=== PATIENT | male | born 1945 | race Asian ===

== ENCOUNTER 2022-01-01 12:46 | Outpatient (CLI) | payer MEDICARE, SELFPAY ==
--- OUTSIDE RECORDS SUMMARY | 2022-01-01 11:46 | XMS_ITS | Clinical Summary ---
:1945 Author Organization [facility] Address [address] [place] [id number] Care Team Providers Name Role Phone Benjamin Henao MD Unavailable Benjamin Henao MD Primary Care Provider Allergies Active Allergy Reactions Severity Noted Date Comments Animal Dander Unknown 09/28/2016 Lisinopril Cough 10/28/2009 Medications Medication Sig Dispensed Refills Start Date End Date Status aspirin 81 MG tablet Take 1 tablet by 0 Active mouth daily. losartan (COZAAR) 50 MG 0 12/07/2020 Active tablet atorvastatin (LIPITOR) Take 20 mg by 0 12/07/2020 Active 20 MG tablet mouth daily doxepin (SINEQUAN) 10 MG Take 10 mg by 0 12/30/2019 Active capsule mouth Pediatric Multi Take 1 tablet by 0 Active Vit-Extra C-FA mouth (FLINTSTONES/EXTRA C) CHEW sildenafil (VIAGRA) 100 Take 100 mg by 0 05/02/2020 Active MG tablet mouth Vitamin D3 Take by mouth 0 Activ e (CHOLECALCIFEROL) 125 daily MCG (5000 UT) tablet cyanocobalamin 1000 MCG Taking every 0 Active SUBL other day Calcium Citrate-Vitamin Take 1 tablet by 0 Active D (CALCIUM CITRATE + D mouth 2 times PO) daily Active Problems Problem Noted Date Obesity (BMI 35.0-39.9) with comorbidity 05/02/2020 S/P splenectomy 01/02/2019 Type 2 diabetes mellitus with complication, without lo ng-term current use 11/21/2018 of insulin [place]ston coronary artery calcium score between 200 and 399 11/21/2018 H/O gastric bypass 10/22/2017 Overview: 05/01/[address] Grant. Complicated by h emorrhage that led to splenectomy. Initial weight was 313 lbs, BMI of 46.9 with comorbid DM II on insulin, hypertension and hyperlipidemia. 6 month s post op is 225 lbs/BMI 34.2 and A1c of 5.6% on just metformin. 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 Overview: Created by Conversion Colonic Diverticulosis Overview: Created by Conversion [facility] Annotation: Sep 03 2011 2:15 PM - Eladio Nielsen: colonoscopy done 08/29/11 Replacement Utility updated for latest I MO load Coronary Artery Disease Overview: Created by Conversion Replacement Utility updated for latest I MO load Mixed hyperlipidemia Overview: Created by Conversion Hypertension Overview: Created by Conversion Replacement Utility updated for latest I MO load Esophageal reflux Overview: Created by Conversion Obstructive sleep apnea Overview: Created by Conversion Resolved Problems Problem Noted Date Resolved Date Morbid obesity with BMI of 45.0-49.9, adult 05/01/2017 06/13/2017 Type 2 diabetes mellitus 01/02/2019 Overview: Created by Conversion Immunizations Name Administration Dates Next Due COVID-19,PF,Pfizer (12+ Yrs) 01/24/2021 Influenza (High Dose) 3 valent vaccine 01/09/2018, 5 Influenza, Quad, High Dose, Pf, 65yr+ (Fluzone HD) , 12/23/2019 Family History Medical History Relation Comments Coronary Artery Disease Brother 1 Diabetes Brother 1 Heart Disease Brother 1 Hyperlipidemia Brother 1 Hypertension Brother 1 Coronary Artery Disease Brother 2 Diabetes Brother 2 Heart Disease Brother 2 Hyperlipidemia Brother 2 Hypertension Brother 2 Cancer Brother 3 gastric ca Diabetes Brother 3 Heart Disease Brother 3 Hyperlipidemia Brother 3 Hypertension Brother 3 Cardiovascular Father Coronary Artery Disease Father Diabetes Father Heart Disease Father Hyperlipidemia Father Obesity Father Arthritis Mother Diabetes Sister 1 Hyperlipidemia Sister 1 Hypertension Sister 1 Obesity Sister 1 Cardiovascular Sister 2 Diabetes Sister 2 Hyperlipidemia Sister 2 Hypertension Sister 2 Obesity Sister 2 Diabetes Sister 3 Hyperlipidemia Sister 3 Hypertension Sister 3 Obesity Sister 3 Cardiovascular Sister 4 Diabetes Sister 4 Hyperlipidemia Sister 4 Hypertension Sister 4 Obesity Sister 4 Diabetes Sister 5 Hyperlipidemia Sister 5 Hypertension Sister 5 Obesity Sister 5 Relation Status Comments Brother 1 Alive Brother 2 Brother 3 Father Mother Sister 1 Alive Sister 2 Alive Sister 3 Alive Sister 4 Alive Sister 5 Alive Social History Tobacco Use Types Packs/Day Years Used Date Former Smoker Quit: 09/28/18 90 Smokeless Tobacco: Never Used Comments: quit 27 yrs ago as of 09/28/2016 Alcohol Use Standard Drinks/Week Comments Yes 0 (1 standard drink = 0.6 oz pure alcoho l) 1 beer a month Alcohol Habits Answer Date Recorded How often do you have a drink containing alcohol? Not asked How many drinks containing alcohol do you have on a Not aske d typical day when you are drinking? How often do you have six or more drinks on one Not asked occasion? Comment: 1 beer a month 12/16/2020 Sex Assigned at Date Recorded Not on file Last Filed Vital Signs Vital Sign Reading Time Taken Comments Blood Pressure 136/80 12/16/2020 1:12 PM CDT Pulse 68 06/30/2019 9:41 AM CDT Temperature - - Respiratory Rate 16 01/07/2019 10:21 AM CDT Oxygen Saturation 98% 01/07/2019 10:21 AM CDT Inhaled Oxygen Concentration - - Weight 105.7 kg (233 lb 1.6 oz) 12/16/2020 1:12 PM CDT Height 172.7 cm (5' 8) 12/16/2020 1:12 PM CDT Body Mass Index 35.44 12/16/2020 1:12 PM CDT Plan of Treatment Health Maintenance Due Date Last Done Comments ADVANCE CARE PLANNING 1945 ANNUAL REVIEW OF HM ORDERS 1945 DIABETIC FOOT EXAM 1945 MEDICARE ANNUAL WELLNESS 2010 VISIT ZOSTER IMMUNIZATION (2 of 08/08/2015 06/13/2015 2) MICROALBUMIN 11/22/2019 11/21/2018, 10/22/2017, 06/13/2015 FALL RISK ASSESSMENT 06/29/2020 06/30/2019 PHQ-2 (once per calendar 04/22/2021 12/23/2018 year) COVID-19 Vaccine (4 - 05/27/2021 01/24/2021, 05/24/2020, Booster for Pfizer series) 05/03/2020 A1C 06/18/2021 12/16/2020, 06/30/2019, 11/21/2018, Additional history exists BMP 12/16/2021 12/16/2020, 06/30/2019, 04/14/2018, Additional history exists LIPID 12/16/2021 12/16/2020, 06/30/2019, 11/21/2018, Additional history exists INFLUENZA VACCINE (#1) 2021 01/16/2021, 12/23/2019, 12/23/2019, Additional history exists EYE EXAM 03/23/2022 03/23/2021, 03/22/2020, 03/11/2019, Additional history exists DTAP/TDAP/TD IMMUNIZATION 01/03/2031 01/03/2021, 06/13/2015 (3 - Td or Tdap) HEPATITIS C SCREENING Completed 06/30/2019 Pneumococcal Vaccine: 65+ Completed 01/03/2021, 06/13/2015 , Years 10/04/2014, Additional history exists IPV IMMUNIZATION Aged Out No longer eligi ble based on patient 's age to complete this topic MENINGITIS IMMUNIZATION Aged Out No longe r eligible based on patient 's age to complete this topic Medical Devices Implanted 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 Shelf Model / Identifier Expiration Serial / Date Lot Staple Reload [place] 60mm 2.6mm White - [id number] - S Metallic N/ A: [employer] 02/19/2022 [id number] / Implanted: Qty: 2 on 05/01/2017 Hardware/Anc Abdomen INC-[employer] / hor [id number] Insurance Payer Benefit Plan / Subscriber ID Effective Dates Phone Addre ss Type Group UCARE UCARE MEDICARE [id number] 2019-Present [phone] [address] [place] [address] Care Teams Tank Assembler Relationship Specialty Start Date End Date Benjamin Henao MD PCP - General Internal Medicine 07/24/[address] [place] [address] [phone] Benjamin Henao MD Assigned PCP 10/05/[address] [place] [address] [phone]
--- OUTSIDE RECORDS SUMMARY | 2022-01-01 11:46 | XMS_ITS | Encounter Summary ---
:1945 Author Organization [place] Address [address] [place] [id number] Care Team Providers Name Role Phone Benjamin Henao MD Unavailable Benjamin Henao MD Primary Care Provider Reason for Visit Reason Comments Weight Problem Annual Encounter Details Date Type Department Care Team Description 12/16/2020 Office Visit [facility] Santos Krishna, Postoper ative malabsorption (Primary Dx); Surgery Clinic and MD Elevated bilirubin; Bariatrics Care [address] [place] [address] of diabetes mellitus [id number] [place] [address] [phone] (Work) [phone] Social History Tobacco Use Types Packs/Day Years [...] Assigned at Date Recorded Not on file COVID-19 Exposure Response Date Recorded In the last month, have you been in contact with No / Unsure 12/16/2020 1:03 PM CDT someone who was confirmed or suspected to have Coronavirus / COVID-19? documented as of this encounter Last Filed Vital Signs Vital Sign Reading Time Taken Comments Blood Pressure 136/80 12/16/2020 1:12 PM CDT Pulse - - Temperature - - Respiratory Rate - - Oxygen Saturation - - Inhaled Oxygen Concentration - - Weight 105.7 kg (233 lb 1.6 oz) 12/16/2020 1:12 PM CDT Height 172.7 cm (5' 8) 12/16/2020 1:12 PM CDT Body Mass Index 35.44 12/16/2020 1:12 PM CDT documented in this encounter Patient Instructions Patient InstructionsTuoSantos ragsdale MD - 12/16/2020 1:15 PM CDT Plan: 1. Great work with maintaining a 80 lb weight reduction. Plan: 1. Continue working on good protein intake at 3 meals daily, 15-20g/meal is ideal and with longer walks over 70minutes expect to need about a 90-150kcal snack with 10grams of protein. 2. Check labs. 3. Continue vitamins, check label of multiivtamin to make sure it has adequate iron (18mg/serving ideally) Zinc 12-15mg/serving is ideal. We'll see how labs look. Continue B12 3 days weekly and D3 daily. Calcium citrate may be able to reduce to once daily depending on labs/PTH levels and vitamin D. 4. I recommend a bone density check sometime this year given weight loss and malabsorption. 5. Small ventral hernia can be assessed if increased issues arise. Currently not a problem and can defer unless increased frequency of pain/rapid enlargement. [facility] Nutritional [facility] Gastric Bypass 18 Months Post Op and Beyond General Guidelines and Helpful Hints: ??? Eat 3 meals per day + protein supplement(s). No snacks between meals. o Do not skip meals. This can cause overeating at the next meal and will prevent adequate protein and nutritional intake. ??? Aim for 60-80 grams of protein per day. o Always eat your protein first. This assists with optimal nutrition and helps you stay full longer. o Depending on your portion size, you may need to drink approved protein supplement between meals toachieve protein goals. Follow recommendations of your Dietitian. ??? Eat your protein first, and then follow with fiber. o It is not necessary to count your fiber, but 15-20 grams per day is recommended. o Add fiber by including fruits, vegetables, whole grains, and beans. ??? Portions should remain about 1 cup per meal. Use measuring cups to be accurate. ??? Continue to use saucer/salad plates, infant/toddler silverware to keep portion sizes small and take small bites. ??? Eat S-L-O-W-L-Y to make each meal last 20-30 minutes. Always stop eating when satisfied. ??? Continue to use caution with foods containing skins, peels or membranes. Chew well! ??? Aim for 64 oz. of calorie-free fluids daily. o Continue to avoid caffeine and carbonation. If you choose to drink alcohol, do so in moderation. o Remember to avoid drinking during meals, 15-30 minutes before and 30 minutes after. ??? Exercise is grey for continued weight loss and weight maintenance. 150 minutes weekly of moderateaerobic activity or 75 minutes of vigorous with 2 days or more a week of strength training. Try to get 20% or more of your steps each day at a brisk pace, as though hurrying to a bus stop. Look to get stronger this year. ??? If having trouble tolerating meat, try using a crock-pot, tinfoil tent, steamer or other moist cooking method to create tender meats. Add broth or low- fat gravy to help meat stay moist. ??? Avoid high sugar and high fat foods to prevent dumping syndrome. o Check nutrition labels for less than 10 grams of sugar and less than 10 grams of fat per serving. ??? Continue Taking Vitamins/Minerals: o 1000 mcg of Sublingual B-12 at least 3 days weekly to average 350-500mcg/day. If using 2500mcg lozenges, 2 weekly. If 5000 mcg, once weekly dosing works. o 1 Complete Multivitamin with 18mg Iron twice daily (chewable or swallow tabs). Often sold as women's one a day if tablet but take twice daily. o 500-600 mg Calcium Citrate twice daily (chewable or swallow tabs). o 5000 IU Vitamin D3 daily. o If menstruating, you may need closer to 60mg of iron daily to prevent iron deficiency. An occasional boost of extra iron supplement during/after is reasonable if heavy flow. Sample Grocery List Protein: ??? Fat free Martiniquais or light yogurt (less than 10 grams sugar) ??? Fat free or low-fat cottage cheese ??? String cheese or reduced fat cheese slices ??? Tuna, salmon, crab, egg, or chicken salad made with light or fat free mayonnaise ??? Egg or Egg Substitute ??? Lean/extra lean turkey, beef, bison, venison (ground, sirloin, round, flank) ??? Pork loin or tenderloin (grilled, baked, broiled) ??? Fish such as salmon, tuna, trout, tilapia, etc. (grilled, baked, broiled) ??? Tender cuts of lean (skinless) turkey or chicken ??? Lean deli meats: turkey, lean ham, chicken, lean roast beef ??? Beans such as kidney, garbanzo, black, johansen, or low-fat/fat free refried beans ??? Peanut butter (natural preferred). Limit to 1 Tbsp. per day. ??? Low-fat meatloaf (made with lean ground beef or turkey) ??? Sloppy [place] made with low-sugar ketchup and lean ground beef or turkey ??? Soy or vegetable protein (i.e. vegan crumbles, soy/veggie burger, tofu) ??? Hummus Vegetables: ??? Fresh: cooked or raw (as tolerated) ??? Frozen vegetables ??? Canned vegetables (low sodium or no salt added, rinse before cooking/eating) ??? (Ok to have skins/peels/membranes/seeds - just chew well) Fruits: ??? Fresh fruit ??? Frozen fruit (no sugar added) ??? Canned fruit (packed in its own juice, NOT syrup) ??? (Ok to have skins/peels/membranes/seeds - just chew well) Starch: ??? Unsweetened whole-grain hot cereal (or high fiber cold cereal, dry) ??? Toasted whole wheat bread or [place] Thins ??? Whole grain crackers ??? Baked /boiled/mashed potato/sweet potato ??? Cooked whole grain pasta, brown rice, or other cooked whole grains ??? Starchy vegetables: corn, peas, winter squash Protein Supplement: ??? Ready to drink protein shake with: o 15-30 grams protein per serving o Less than 10 grams total carbohydrate per serving ??? Protein powder mixed with: o Skim or 1% milk o Low fat or fat free Lactaid milk, plain or no sugar added soymilk o Water Fats: (use in moderation) ??? 1 teaspoon of soft tub margarine ??? 1 teaspoon olive oil, canola oil, or peanut oil ??? 1 tablespoon of low-fat nguyen or salad dressing Sample Menu for 18+ months after Gastric Bypass You do NOT need to eat/drink the full portion sizes listed below Always stop when you are satisfied Breakfast ?? cup 1% cottage cheese ?? cup mixed berries Lunch 2 oz lean roast beef on ?? [place] Thin with 1 tsp. light nguyen ?? small tomato, chopped, mixed with 1 tsp. light vinaigrette dressing Supplement Approved protein supplement (if needed between meals) Dinner 2 oz grilled salmon ?? cup salad greens with 1 tsp. light salad dressing and 1 tsp. ground flax seed ?? cup quinoa or brown rice Breakfast ?? cup egg substitute with ?? cup saut??ed chopped vegetables 2 light [place] Krisp crackers Lunch Tuna Melt: ?? cup tuna mixed with 1 tsp. light nguyen over ?? [place] Thin. Top with 2-3 slicescucumber and 1 oz slice of low fat cheese Supplement 1 cup skim milk (if needed between meals) Dinner 3 oz grilled, broiled, or baked seasoned skinless chicken breast ?? cup asparagus Breakfast ?? cup plain oatmeal made with skim or 1% milk with 1 Tbsp. flavored/unflavored protein powder added 1 mozzarella string cheese Lunch 2 oz deli turkey breast 1/3 cup salad with 1 tsp. light salad dressing, 1/8 of a whole avocado and 1 Tbsp. sunflower seeds Dinner 3 oz. pork loin made in a crock pot, seasoned with a spice rub ?? cup cooked carrots Supplement Approved protein supplement (if needed between meals) Breakfast 1 cup breakfast casserole made with egg substitute, turkey sausage, and steamed, chopped dan peppers Supplement 1 cup light Martiniquais yogurt (if needed between meals) Lunch 2 oz. teriyaki turkey ?? cup mashed sweet potato with 1-2 spritzes of spray butter ?? cup fresh pineapple Dinner 3 oz low fat meatloaf ?? cup roasted garlic zucchini Breakfast ?? cup leftover breakfast casserole ?? cup no sugar added applesauce with 1 Tbsp. unflavored protein powder and a sprinkle of cinnamon Lunch 3 oz shrimp with 1-2 Tbsp. low-sugar cocktail sauce for dipping ?? c. whole wheat pasta drizzled with ?? tsp. olive oil Supplement 1 cup skim/1% milk with scoop of protein powder (if needed between meals) Dinner Grilled, seasoned kebob with 2 oz lean beef and ?? cup vegetables Breakfast Breakfast pizza: ?? [place] Thin spread with 1 Tbsp. low sugar spaghetti sauce, ?? cup shredded low fat cheese, melted and 1 slice of Gamb[place] tsai ?? cup fresh fruit mixed with chopped almonds Lunch ?? cup black hill soup 4-5 whole grain crackers Dinner 3 oz tilapia with lemon pepper seasoning ?? cup stewed tomatoes Supplement 1 string cheese (if needed between meals) Breakfast 2 hard boiled eggs (discard 1 egg yolk) ?? whole wheat Tristanian Muffin with 1 tsp. low sugar jelly Lunch ?? cup leftover black hill soup topped with 1-2 Tbsp. low fat cheese 2-3 light [place] Krisp crackers Supplement Approved protein supplement (if needed between meals) Dinner 3 oz sirloin steak ?? cup steamed broccoli LEAN PROTEIN SOURCES Getting 20-30 grams of protein, 3 meals daily, is appropriate for most people, some need more but more than about 40 grams per meal is not useful. General rule is drinking one ounce of water per gram of protein eaten over the course of the day: 70grams of protein each day, drink 70 oz of water. Protein Source Portion Calories Grams of Protein Nonfat, plain Martiniquais yogurt (10 grams sugar or less) 3/4 cup (6 oz) 80-100 12-17 Light Yogurt (10 grams sugar or less) 3/4 cup (6 oz) 80-100 6-8 Protein Shake 1 shake 110-180 15-30 Skim/1% Milk or lactose-free milk 1 cup ( 8 oz) 90-100 8 Plain or light, flavored soymilk 1 cup 90-100 7-8 Plain or light, hemp milk 1 cup 110 6 Fat Free or 1% Cottage Cheese 1/2 cup 90 15 Part skim ricotta cheese 1/2 cup 100 14 Part skim or reduced fat cheese slices 1 ounce 65-80 8 Mozzarella String Cheese 1 80 8 Canned tuna, chicken, crab or salmon (canned in water) 1/2 cup 100 15-20 White fish (broiled, grilled, baked) 3 ounces 100 21 [place]/Tuna (broiled, grilled, baked) 3 ounces 150-180 21 Shrimp, Scallops, Lobster, Crab 3 ounces 100 21 Pork loin, Pork Tenderloin 3 ounces 150 21 Boneless, skinless chicken /turkey breast (broiled, grilled, baked) 3 ounces 120 21 [place], [place], [place], and Venison 3 ounces 120 21 Lean cuts of red meat and pork (sirloin, round, tenderloin, flank, ground 93%-96%) 3 ounces 170 21 Lean or Extra Lean Ground [place] 1/2 cup 150 20 90-95% Lean [place] Burger 1 dong 140-180 21 Low-fat casserole with lean meat 3/4 cup 200 17 Luncheon Meats (turkey, lean ham, roast beef, chicken) 3 ounces 100 21 Egg (boiled, poached, scrambled) 1 Egg 60 7 Egg Substitute 1/2 cup 70 10 Nuts (limit to 1 serving per day) 3 Tbsp. 150 7 Nut [place] (peanut, almond) Limit to 1 serving or less daily 1 Tbsp. 90 4 Soy Archie (varies) 1 90-130 15 Garbanzo, Black, Johansen Beans 1/2 cup 110 7 Refried Beans 1/2 cup 100 7 Kidney and Wade beans 1/2 cup 110 7 Tempeh 3 oz 175 18 Vegan crumbles 1/2 cup 100 14 Tofu 1/2 cup 110 14 [place] (beans and extra lean beef or turkey) 1 cup 200 23 Lentil Stew/Soup 1 cup 150 12 [place] Soup 1 cup 175 12 How much activity does it take to burn off the occasional treat? occasional treat/snack or indulgence doesn't have to set back your weight loss season goals. But if the occasional treat turns into the daily chocolate habit or the chips after dinner, can of soda thenyour progress willslow dramatically unless your activity and exercise can compensate for those empty, low nutrition/high calorie foods. Here's some estimations of walking off your snacks depending on general weights. You can use calorieburn calculators if you search in Cubicl, more accurate estimations should ask height/weight/gender and if you have a smart watch/heart rate monitor fitness watch then your personal burn rate will be much more accurate thenthese general numbers, but these are in theAcheive CCApark. http://www.Pictrition App.[employer]/eoksuftd-oegcoh-ckbbaosstk/ is a nice reference for manydifferent activities with just entering weight and time spent doing anactivity. Most prepackaged snacks/treats or 12 oz cans of soda come in around 150 kcal (small bag of chips (11-12 chips), 2 Tollhouse Cookies, 12 oz Coke, 5 oz of wine(125 kcal), 2 oz Vodka (130kcal),etc). To burnoff this snack/indulgence walking at a walking the dog pace or for most people that aren't in lola bhavana/fitness mode, about 2.5 MPH. If you move slower than this, you'll burn less calories. If you move faster than this,you'll burn more. Calories burned are for a 30 minute walk, at 2.5 MPH (traveling 1.25 miles in 30 minutes): Body Weight Calories Burned 175 lbs 120 kcal 200 lbs 137 kcal 225 lbs 153 kcal 250 lbs 171 kcal 300 lbs 204 kcal Speed, intensity, hills and activity type (walk/bike/swim/chores/yardwork/etc) will determine how much energy you burn per hour. As you can see, for most people, a small snack of 150 kcal is a 30 minute commitment to moving at a modest pace. A quick stroll. In comparison, most people moving at a missing the bus walk pace of about 4 mph (or the pace that a fit person may walkin a marathon race if they can't run anymore). 30 minutes at 4 MPH speedy walk/slow jog on level ground burn rate (2 miles covered in 30 minutes): Body Weight Calories Burned 175 lbs 198 kcal 200 lbs 227 kcal 225 lbs 255 kcal 250 lbs 283 kcal 300 lbs 340 kcal. Finding loops in your neighborhood is easy to map out distances by using sites like, ShareRoot, Zyga, or Buzz Media. Get out there and earn it, burn it, or pay it forward. Banking calories is always a good idea if youknow an occasion is coming up where you plan to indulge. The goal for all adults around the work is at [phone] minutes weekly of moderate aerobic activity like those listed above (keeping heart rate at about 50-65% of your maximum heart rate calculation (roughly 220-Age in years (as long as not on heart slowing medicationslike Beta Blockers)). Hopefully, this drives home the point that snacks need to be intentional during weight loss season as most of us struggle with finding 30-60minutes most days a week to exercise and it takes more thanthat in many cases to make up for the sweet/treats and indulgences that may have contributed to your weight gain over the years (roughly, a can of soda daily for a year will put a person at risk for a 10-15 lbweight gain each year). documented in this encounter Progress Notes Santos Krishna MD - 12/16/2020 1:15 PM CDT Bariatric Follow Up Visit with a History of Previous Bariatric Surgery Date of visit: 12/16/2020 Physician: Santos Krishna MD, MD Primary Care Provider: Benjamin Henao Faith Adames 75 year old male Date of Surgery: 05/01/17 Initial Weight: 313lbs Initial BMI: 46.9 Today's Weight: Wt Readings from Last 1 Encounters: 12/16/20 105.7 kg (233 lb 1.6 oz) Weight history: Wt Readings from Last 4 Encounters: 12/16/20 105.7 kg (233 lb 1.6 oz) 06/30/19 105.2 kg (232 lb) 01/07/19 103.9 kg (229 lb) 12/23/18 103.4 kg (228 lb) Body mass index is 35.44 kg/m??. Assessment and Plan Assessment: Faith is a 75 year old year old male who is 3.5 s/p Falguni en Y Gastric Bypass with Dr. Grant. 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 He's done well over the last 2 years since his last visit with stable weight in the low 230s. Small incisional hernia reduces spontaneously and may require repair at some point if increased issues/pain arises. For now he's content to monitor. We'll check nutritional labs today. His diabetes has been in remission off medications since his procedure. A1c in 2020 was 5%. Reviewed his morning fasting glucoses and typically in the 105-130 mg/dl range looks good. Activity is excellent, routinely walking 5 miles daily and getting 70k-140k steps per week. Faith Adames feels as if he has achieved the goals he hoped to accomplish through bariatric surgery and weight loss. Encounter Diagnoses Name Primary? Postoperative malabsorption Yes ??? Family history of diabetes mellitus ??? Elevated bilirubin Current Outpatient Medications: ??? aspirin 81 MG tablet, Take 1 tablet by mouth daily., Disp: , Rfl: ??? atorvastatin (LIPITOR) 20 MG tablet, Take 20 mg by mouth daily, Disp: , Rfl: ??? Calcium Citrate-Vitamin D (CALCIUM CITRATE + D PO), Take 1 tablet by mouth 2 times daily, Disp: , Rfl: ??? cyanocobalamin 1000 MCG SUBL, Taking every other day, Disp: , Rfl: ??? doxepin (SINEQUAN) 10 MG capsule, Take 10 mg by mouth, Disp: , Rfl: ??? losartan (COZAAR) 50 MG tablet, , Disp: , Rfl: ??? Pediatric Multi Vit-Extra C-FA (FLINTSTONES/EXTRA C) CHEW, Take 1 tablet by mouth, Disp: , Rfl: ??? sildenafil (VIAGRA) 100 MG tablet, Take 100 mg by mouth, Disp: , Rfl: ??? Vitamin D3 (CHOLECALCIFEROL) 125 MCG (5000 UT) tablet, Take by mouth daily, Disp: , Rfl: Plan: 1. Continue working on good protein intake at 3 meals daily, 15-20g/meal is ideal and with longer walks over 70minutes expect to need about a 90-150kcal snack with 10grams of protein. 2. Check labs. 3. Continue vitamins, check label of multiivtamin to make sure it has adequate iron (18mg/serving ideally) Zinc 12-15mg/serving is ideal. We'll see how labs look. Continue B12 3 days weekly and D3 daily. Calcium citrate may be able to reduce to once daily depending on labs/PTH levels and vitamin D. 4. I recommend a bone density check sometime this year given weight loss and malabsorption. 5. Small ventral hernia can be assessed if increased issues arise. Currently not a problem and can defer unless increased frequency of pain/rapid enlargement. Return in about 1 year (around 12/16/2021) for Follow up. Bariatric Surgery Review Interim History/LifeChanges: stable life/weight. Walking regularly. Patient Concerns: review of vitamins Appetite (1-10): some nibbling w/ increase walking, reviewed goals for snack if getting 5-6miles in. GERD: rare regurgitation. Reviewed whether any need/indication for screening EGD today and we will be deferred given lack of sx.. Typically, a screening EGD is recommend post op year 2-3 if no symptoms to assess health of esophagus/bariatric surgery and sooner if difficult to control GERD or persistent pain/dysphagia sx despite behavior modification. Medication changes: off diabetes medications Vitamin Intake: B-12 yes 3 days weekly MVI [employer]co mature twice dailiy Vitamin D 5000 Calcium twice daily Other coQ10 300mg daily. Some incisional hernia issues. LABS: ordered Nausea rare unless overeats. Vomiting rare Constipation no Diarrhea no Rashes none. Hair Loss no Reactive Hypoglycemia none. Light Headedness no Moods some COVID related mood change. Home BP 120/60s. Most recent labs: Lab Results Component Value Date WBC 10.9 12/16/2020 HGB 12.1 (L) 12/16/2020 HCT 37.6 (L) 12/16/2020 MCV 92 12/16/2020 PLT 295 12/16/2020 Lab Results Component Value Date CHOL 156 06/30/2019 Lab Results Component Value Date HDL 43 06/30/2019 No components found for: LDLCALC Lab Results Component Value Date TRIG 173 (H) 06/30/2019 No components found for: CHOLHDL Lab Results Component Value Date ALT 21 06/30/2019 AST 24 06/30/2019 ALKPHOS 97 06/30/2019 No results found for: HGBA1C No components found for: [id number] No components found for: [id number] No components found for: FERRITIN No components found for: PTH No components found for: [id number] No components found for: [id number] No results found for: TSH No results found for: TESTOSTERONE Habits: Tobacco/Nicotine/THC exposure? no NSAID use? no Alcohol use? n/a Caffeine Habits? n/a Emiliano 231lbs. Weight stable for 18 months. Exercise Routine: treadmill daily, 5-6 miles daily. 3 meals/day? Yes. Some snacking Protein 60-80g/day? Often, some supplementation Water Separate from meals? yes Calorie Containing Beverages: no Restaurant eating/wk: rare Sleep Habits: good CPAP Use? n/a Contraception: n/a DEXA:recommend he get one this year given 80 lb reduction and malabsorption risks and age 75. . Discussed annual screening to start at age 45 and continue to age 55 if scoring low risk. DEXA scan recommended at age 55 regardless as long as at least 2 years have transpired from their bariatric surgery. Social History Social History Socioeconomic History ??? Marital status: Spouse name: Not on file ??? Number of children: Not on file ??? Years of education: Not on file ??? Highest education level: Not on file Occupational History ??? Not on file Tobacco Use ??? Smoking status: Former Smoker Quit date: 09/28/1989 Years since quittin.2 ??? Smokeless tobacco: Never Used ??? Tobacco comment: quit 27 yrs ago as of 09/28/2016 Substance and Sexual Activity ??? Alcohol use: Yes Comment: 1 beer a month ??? Drug use: No ??? Sexual activity: Yes Other Topics Concern ??? Parent/sibling w/ CABG, [place] or angioplasty before 65F 55M? Not Asked Social History Narrative ??? Not on file Social Determinants of Health Financial Resource Strain: ??? Difficulty of Paying Living Expenses: Food Insecurity: ??? Worried About Running Out of Food in the Last Year: ??? Ran Out of Food in the Last Year: Transportation Needs: ??? Lack of Transportation (Medical): ??? Lack of Transportation (Non-Medical): Physical Activity: ??? Days of Exercise per Week: ??? Minutes of Exercise per Session: Stress: ??? Feeling of Stress : Social Connections: ??? Frequency of Communication with Friends and Family: ??? Frequency of Social Gatherings with Friends and Family: ??? Attends Denominational Services: ??? Active Member of Clubs or Organizations: ??? Attends Club or Organization Meetings: ??? Marital Status: Intimate Partner Violence: ??? Fear of Current or Ex-Partner: ??? Emotionally Abused: ??? Physically Abused: ??? Sexually Abused: Past Medical History Past Medical History: Diagnosis Date ??? Diabetes mellitus (H) ??? Hypertension ??? Sleep apnea, obstructive per patient Problem List Patient Active Problem List Diagnosis ??? Benign Adenomatosis Of The Large Intestine ??? Insomnia ??? Obesity ??? 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 Colonic Diverticulosis ??? Coronary Artery Disease ??? Mixed hyperlipidemia ??? Hypertension ??? Esophageal reflux ??? Obstructive sleep apnea ??? Benign Prostatic Hypertrophy ??? Microalbuminuria ??? H/O gastric bypass ??? Type 2 diabetes mellitus with complication, without long-term current use of insulin (H) ??? [place]atston coronary artery calcium score between 200 and 399 ??? S/P splenectomy ??? Obesity (BMI 35.0-39.9) with comorbidity (H) Medications @MEDSCURRENTNOTES@ Surgical History Past Surgical History He has a past surgical history that includes colonoscopy; Colonoscopy (08/29/2011); Pr Lap Gastric Bypass/Falguni-En-Y (N/A, 05/01/2017); and Splenectomy. Objective-Exam Constitutional: BP 136/80 (BP Location: Right arm, Patient Position: Sitting, Cuff Size: Adult Small) Ht 1.727 m (5' 8) Wt 105.7 kg (233 lb 1.6 oz) BMI 35.44 kg/m?? @WEIGHT1@ General: Pleasant and in no acute distress Eyes: EOMI ENT: Airway clear Neck: Respiratory: Normal respiratory effort, no cough, . CV: RRR Gastrointestinal: inferior aspect of midline incision with self reducing hernia on supine positioning. Musculoskeletal: muscle mass WNL Skin: color normal hair normal, Psychiatric: alert and oriented X3, mood and affect normal Counseling We reviewed the important post op bariatric recommendations: -eating 3 meals daily -eating protein first, getting >60gm protein daily -eating slowly, chewing food well -avoiding/limiting calorie containing beverages -drinking water 15-30 minutes before or after meals -limiting restaurant or cafeteria eating to twice a week or less We discussed the importance of restorative sleep and stress management in maintaining a healthy weight. We discussed the National Weight Control Registry healthy weight maintenance strategies and ways to optimize metabolism. We discussed the importance of physical activity including cardiovascular and strength training in maintaining a healthier weight. We discussed the importance of life-long vitamin supplementation and life-long follow-up. Faith was reminded that, to avoid marginal ulcers he should avoid tobacco at all, alcohol in excess, caffeine in excess, and NSAIDS (unless indicated for cardioprotection or othewise and opposed by aPPI). Santos Krishna MD [facility]. 12/16/2020 1:20 PM [phone] (clinic phone) [phone] (fax) No images are attached to the encounter. Medical Decision Makin minutes spent on the date of the encounter doing chart review, history and exam, documentation and further activities per the note documented in this encounter Plan of Treatment Not on filedocumented as of this encounter Results UA reflex to Microscopic - lab collect (12/16/2020 2:56 PM CDT) [facility] Method Time Signature Color Urine Yellow Colorless, 12/16/2020 [facility] Straw, Light 2:59 PM CDT LABORATORY Yellow, Yellow Appearance Urine Clear Clear 12/16/2020 [facility] 2:59 PM CDT LABORATORY Glucose Urine Negative Negative 12/16/2020 [facility] mg/dL 2:59 PM CDT LABORATORY Bilirubin Urine Negative Negative 12/16/2020 [facility] 2:59 PM CDT LABORATORY Ketones Urine Negative Negative 12/16/2020 [facility] mg/dL 2:59 PM CDT LABORATORY Specific Sarona 1.020 1.005 - 12/16/2020 [facility] Urine 1.030 2:59 PM CDT LABORATORY Blood Urine Negative Negative 12/16/2020 [facility] 2:59 PM CDT LABORATORY pH Urine 5.0 5.0 - 8.0 12/16/2020 [facility] 2:59 PM CDT LABORATORY Protein Albumin Negative Negative 12/16/2020 [facility] Urine mg/dL 2:59 PM CDT LABORATORY Urobilinogen 0.2 0.2, 1.0 12/16/2020 [facility] Urine E.U./dL 2:59 PM CDT LABORATORY Nitrite Urine Negative Negative 12/16/2020 [facility] 2:59 PM CDT LABORATORY Leukocyte Negative Negative 12/16/2020 [facility] Esterase Urine 2:59 PM CDT LABORATORY Specimen Anatomical Collection Method Collection Time Receive d Time (Source) Location / / Volume Laterality Urine MID-STREAM URINE Non-blood 12/16/2020 2:56 PM 12/16 2:56 SAMPLE / Unknown Collection / CDT PM CDT Unknown Narrative [facility] - 12/16/2020 2:59 PM CDT Microscopic not indicated Santos Krishna MD LAB - URINE ORDERABLES Performing Organization Address City/State/ZIP Code Phon e Number [facility] [address] [place] [address], [facility] - [address] (ABNORMAL) Lipid panel reflex to direct LDL Non-fasting (12/16/2020 2:17 PM CDT) [facility] Method Time Signature Cholesterol 160 <=199 12/16/2020 [facility] mg/dL 8:55 PM CDT Triglycerides 197 (H) <=149 12/16/2020 [facility] mg/dL 8:55 PM CDT Direct Measure 50 >=40 12/16/2020 [facility] HDL mg/dL 8:55 PM CDT Comment: HDL Cholesterol Reference Range: 0-2 years: No reference ranges established for asif ents under 2 years old [facility]at [facility] for lipid analytes. 2-8 years: Greater than 45 mg/dL 18 years and older: Female: Greater than or equal to 50 mg/d L Male: ?? Greater than or equal to 40 mg/ dL LDL Cholesterol 71 <=129 mg/dL 12/16/2020 8:55 PM CDT O LABORATORY Calculated Patient Fasting > 8hrs? Unknown 12/16/2020 8:55 PM CDT O LABORATORY Specimen Anatomical Collection Method / Collection Time Recei nona Time (Source) Location / Volume Laterality Blood BLOOD SPECIMEN / Venipuncture / 12/16/2020 2:17 2020 2:18 Unknown Unknown PM CDT PM CDT Santos Krishna MD LAB - BLOOD ORDERABLES Performing Organization Address City/State/ZIP Code Phon [place] [address] [facility] [place], [place] [phone] [place] [address] [place] [address] Zinc (12/16/2020 2:17 PM CDT) athologist Signature Zinc, 75.7 60.0 - 12/20/2020 [facility] Serum/Plasma 120.0 ug/dL 4:04 AM CDT Comment: INTERPRETIVE INFORMATION: Zinc, Serum or Plasma Elevated results may be due to skin or c ollection-related contamination, including the use of a no ncertified metal-free collection/transport tube. If contamination concerns exist due to elevated levels of serum/plasma zinc, confirmation with a second specimen magaly ected in a certified metal-free tube is recommended . Circulating zinc concentrations are depe ndent on albumin status and are depressed with malnutriti on. ??Zinc may also be lowered with infection, inflammation, stress, oral contraceptives, and . ??Zinc ma y be elevated with zinc supplementation or fasting. ??[place] of[place] zinc concentrations may interfere with copper absorption. This test was developed and its performa nce characteristics determined by [facility]. It has not been cleared or approved by the US Food and Drug Adminis tration. This test was performed in a CLIA certified labora tory and is intended for clinical purposes. Specimen Anatomical Collection Method / Collection Time Recei nona Time (Source) Location / Volume Laterality Blood BLOOD SPECIMEN / Venipuncture / 12/16/2020 2:17 2020 2:18 Unknown Unknown PM CDT PM CDT Narrative [facility] - 12/20/2020 4:04 AM CDT Performed By: [facility] [address] [place] [address] Claims Vice President: Promise Monsalve MD Santos Krishna MD LAB - BLOOD ORDERABLES Performing Organization Address City/[facility]/ZIP [facility] Phon e Number [facility] [place], [place] [phone] [address] [facility] [address] (ABNORMAL) Vitamin B12 (12/16/2020 2:17 PM CDT) P athologist Signature Vitamin B12 1,114 (H) 213 - 816 12/16/2020 [facility] pg/mL 9:29 PM CDT Specimen Anatomical Collection Method / Collection Time Recei nona Time (Source) Location / Volume Laterality Blood BLOOD SPECIMEN / Venipuncture / 12/16/2020 2:17 2020 2:18 Unknown Unknown PM CDT PM CDT Santos Krishna MD LAB - BLOOD ORDERABLES Performing Organization Address City/[facility]/ZIP [facility] Phon e Number [facility] [place] [address] [phone] [place] [address], [facility] [phone] [place] [address] (ABNORMAL) Vitamin B1 whole blood (12/16/2020 2:17 PM CDT) P athologist Signature Vitamin B1 182 (H) 70 - 180 12/20/2020 [facility] Whole Blood nmol/L 9:45 AM CDT Level Comment: INTERPRETIVE INFORMATION: Vitamin B1, Wh ole Blood This assay measures the concentration of thiamine diphosphate (TDP), the primary active fo rm of vitamin B1. Approximately 90 percent of vitamin B1 p resent in whole blood is TDP. Thiamine and thiamine mono phosphate, which comprise the remaining 10 percent, are n ot measured. This test was developed and its performa nce characteristics determined by [facility]. It has not been cleared or approved by the US Food and Drug Adminis tration. This test was performed in a CLIA certified labora tory and is intended for clinical purposes. Specimen Anatomical Collection Method / Collection Time Recei nona Time (Source) Location / Volume Laterality Blood BLOOD SPECIMEN / Venipuncture / 12/16/2020 2:17 2020 2:18 Unknown Unknown PM CDT PM CDT Narrative [facility] - 12/20/2020 9:45 AM CDT Performed By: [facility] [address] [place] [address] Claims Vice President: Promise Monsalve MD Santos Krishna MD LAB - BLOOD ORDERABLES Performing Organization Address City/State/ZIP Code Phon e Number [place], [place] [phone] [address] [facility] [address] Vitamin A (12/16/2020 2:17 PM CDT) athologist Signature Vitamin A 0.70 0.30 - 12/18/2020 [facility] 1.20 mg/L 9:40 PM CDT Retinol 0.07 0.00 - 12/18/2020 [facility] Palmitate 0.10 mg/L 9:40 PM CDT Vitamin A Normal 12/18/2020 [facility] Interp 9:40 PM CDT Comment: This test was developed and its performa nce characteristics determined by [facility]. It has not been cleared or approved by the US Food and Drug Adminis tration. This test was performed in a CLIA certified labora tory and is intended for clinical purposes. Specimen Anatomical Collection Method / Collection Time Recei nona Time (Source) Location / Volume Laterality Blood BLOOD SPECIMEN / Venipuncture / 12/16/2020 2:17 2020 2:18 Unknown Unknown PM CDT PM CDT Narrative [facility] - 12/18/2020 9:40 PM CDT Performed By: [facility] [address] [place] [address] Claims Vice President: Promise Monsalve MD Santos Krishna MD LAB - BLOOD ORDERABLES Performing Organization Address City/[facility]/ZIP Code Phon e Number [facility] [place], [place] [phone] [address] [facility] [address] TSH (12/16/2020 2:17 PM CDT) athologist Signature TSH 1.75 0.30 - 5.00 12/16/2020 [facility] uIU/mL 9:28 PM CDT Specimen Anatomical Collection Method / Collection Time Recei nona Time (Source) Location / Volume Laterality Blood BLOOD SPECIMEN / Venipuncture / 12/16/2020 2:17 2020 2:18 Unknown Unknown PM CDT PM CDT Santos Krishna MD LAB - BLOOD ORDERABLES Performing Organization Address City/[facility] Phon e Number [facility] [place] [address] [place] [address], [facility] [phone] Parathyroid Hormone Intact (12/16/2020 2:17 PM CDT) athologist Signature Parathyroid 83 10 - 86 12/16/2020 [facility] Hormone Intact pg/mL 9:55 PM CDT Specimen Anatomical Collection Method / Collection Time Recei nona Time (Source) Location / Volume Laterality Blood BLOOD SPECIMEN / Venipuncture / 12/16/2020 2:17 2020 2:18 Unknown Unknown PM CDT PM CDT Santos Krishna MD LAB - BLOOD ORDERABLES Performing Organization Address City/[facility]/ZIP [facility] Phon e Number [facility] [place] [address] [place] [address], [facility] [phone] (ABNORMAL) Hemoglobin A1c (12/16/2020 2:17 PM CDT) Analysis Performed At Patho logist Time Signature Hemoglobin A1C 6.0 (H) 0.0 - 5.6 12/16/2020 [facility] % 2:50 PM CDT LABORATORY Comment: Normal <5.7% Prediabetes 5.7-6.4% ?? Diabetes 6.5% or higher Note: Adopted from ADA consensus guideli jessica. Specimen Anatomical Collection Method / Collection Time Recei nona Time (Source) Location / Volume Laterality Blood BLOOD SPECIMEN / Venipuncture / 12/16/2020 2:17 2020 2:18 Unknown Unknown PM CDT PM CDT Santos Krishna MD LAB - BLOOD ORDERABLES Performing Organization Address City/[facility] Phon e Number [facility] [address] [facility] [place], [place] [phone] [place] [address] - [address] Folate (12/16/2020 2:17 PM CDT) athologist Signature Folic Acid 18.0 >=3.5 ng/mL 12/16/2020 [facility] 10:02 PM CDT Specimen Anatomical Collection Method / Collection Time Recei nona Time (Source) Location / Volume Laterality Blood BLOOD SPECIMEN / Venipuncture / 12/16/2020 2:17 2020 2:18 Unknown Unknown PM CDT PM CDT Santos Krishna MD LAB - BLOOD ORDERABLES Performing Organization Address City/State/[facility] Phon [place] [address] [phone] [place] [address], [facility] [phone] Ferritin (12/16/2020 2:17 PM CDT) P athologist Signature Ferritin 30 27 - 300 12/16/2020 [facility] ng/mL 9:29 PM CDT Specimen Anatomical Collection Method / Collection Time Recei nona Time (Source) Location / Volume Laterality Blood BLOOD SPECIMEN / Venipuncture / 12/16/2020 2:17 2020 2:18 Unknown Unknown PM CDT PM CDT Santos Krishna MD LAB - BLOOD ORDERABLES Performing Organization Address City/State/ZIP Code Phon [place] [address] [facility] [place], [place] [address] [phone] (ABNORMAL) Comprehensive metabolic panel (12/16/2020 2:17 PM CDT) [facility] Method Time Signature Sodium 139 136 - 145 12/16/2020 [facility] mmol/L 8:55 PM CDT Potassium 4.7 3.5 - 5.0 12/16/2020 [facility] mmol/L 8:55 PM CDT Chloride 105 98 - 107 12/16/2020 [facility] mmol/L 8:55 PM CDT Carbon Dioxide 21 (L) 22 - 31 12/16/2020 [facility] (CO2) mmol/L 8:55 PM CDT Anion Gap 13 5 - 18 12/16/2020 [facility] mmol/L 8:55 PM CDT Urea Nitrogen 25 8 - 28 12/16/2020 [facility] mg/dL 8:55 PM CDT Creatinine 1.20 0.70 - 12/16/2020 [facility] 1.30 mg/dL 8:55 PM CDT Calcium 9.7 8.5 - 10.5 12/16/2020 [facility] mg/dL 8:55 PM CDT Glucose 115 70 - 125 12/16/2020 [facility] mg/dL 8:55 PM CDT Alkaline 126 (H) 45 - 120 12/16/2020 [facility] Phosphatase U/L 8:55 PM CDT AST 26 0 - 40 U/L 12/16/2020 [facility] 8:55 PM CDT ALT 18 0 - 45 U/L 12/16/2020 [facility] 8:55 PM CDT Protein Total 7.0 6.0 - 8.0 12/16/2020 [facility] g/dL 8:55 PM CDT Albumin 3.9 3.5 - 5.0 12/16/2020 [facility] g/dL 8:55 PM CDT Bilirubin Total 0.8 0.0 - 1.0 12/16/2020 [facility] mg/dL 8:55 PM CDT GFR Estimate 59 (L) >60 12/16/2020 [facility] mL/min/1.7 8:55 PM CDT 3m2 Comment: As of October 30, 2020, eGFR is ca lculated by the CKD-EPI creatinine equation, without race adjustment. eGFR can be inf luenced by muscle mass, exercise, and diet. The reported eGFR is an estimation only and is only applicable if the renal function is stable. Specimen Anatomical Collection Method / Collection Time Recei nona Time (Source) Location / Volume Laterality Blood BLOOD SPECIMEN / Venipuncture / 12/16/2020 2:17 2020 2:18 Unknown Unknown PM CDT PM CDT Santos Krishna MD LAB - BLOOD ORDERABLES Performing Organization Address [facility]/State/ZIP Code Phon [place] [address] [place] [address], [facility] [phone] [place] [address] (ABNORMAL) CBC with platelets (12/16/2020 2:17 PM CDT) [facility] Method Time Signature WBC Count 10.9 4.0 - 11.0 12/16/2020 [facility] 10e3/uL 2:42 PM CDT LABORATORY RBC Count 4.07 (L) 4.40 - 12/16/2020 [facility] 5.90 2:42 PM CDT LABORATORY 10e6/uL Hemoglobin 12.1 (L) 13.3 - 12/16/2020 [facility] 17.7 g/dL 2:42 PM CDT LABORATORY Hematocrit 37.6 (L) 40.0 - 12/16/2020 [facility] 53.0 % 2:42 PM CDT LABORATORY MCV 92 78 - 100 12/16/2020 [facility] fL 2:42 PM CDT LABORATORY MCH 29.7 26.5 - 12/16/2020 [facility] 33.0 pg 2:42 PM CDT LABORATORY MCHC 32.2 31.5 - 12/16/2020 [facility] 36.5 g/dL 2:42 PM CDT LABORATORY RDW 14.1 10.0 - 12/16/2020 [facility] 15.0 % 2:42 PM CDT LABORATORY Platelet Count 295 150 - 450 12/16/2020 [facility] 10e3/uL 2:42 PM CDT LABORATORY Specimen Anatomical Collection Method / Collection Time Recei nona Time (Source) Location / Volume Laterality Blood BLOOD SPECIMEN / Venipuncture / 12/16/2020 2:17 2020 2:18 Unknown Unknown PM CDT PM CDT Santos Krsihna MD LAB - BLOOD ORDERABLES Performing Organization Address City/State/[facility] Code Phon e Number [facility] [address] [facility] - [address] documented in this encounter Visit Diagnoses Diagnosis 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
--- OUTSIDE RECORDS SUMMARY | 2022-01-01 11:46 | XMS_ITS ---
:1945 Author Care Team Providers Name Role Phone CLEMENT BRIGGS MD Primary Care Provider [phone] Allergies Code Code System Name Reaction Severity Status Onset 45611 RxNorm Lisinopril Cough Mild Active 0 Notes: Some allergies listed in Docume nt: #[id number] could not be added to this patient's chart. Please review this docu ment and add these allergies to the patient's chart manually as needed. Medications Name Status Start Date Stop Date ? ? atorvastatin 20 mg tablet Active ? Not av ailable TAKE 1 TABLET BY MOUTH EVERY DAY ciprofloxacin 500 mg tablet Active ? Not available TAKE 1 TABLET BY MOUTH TWICE DAILY UNTIL YOU SEE UROLOGY doxepin 10 mg capsule Active ? Not availa ble TAKE 1 CAPSULE BY MOUTH AT BEDTIME losartan 50 mg tablet Active ? Not availa ble Multi Vitamin Active ? Not available ondansetron 4 mg disintegrating tablet Completed ? 02/16/2021 DISSOLVE 1 TABLET ON THE TONGUE EVERY 6 HOURS NEEDED Problems None recorded. Procedures Date Name Performed by ? 08/29/2011 Colonoscopy Information not avai lable ? Splenectomy Information not avai lable ? Gastric Bypass for Obesity Information n ot available ? Ureteroscopy Information not avai lable Results Lab Results None recorded. Past Encounters 02/16/2021 Kidney Stone; Raised Prostate Specific A ntigen Monroe Ruelas MD: [address] [facility] [place] [address], Ph. Social History Tobacco Smoking Status Former Smoker Vaccine List None recorded. Plan of Care Reminders Provider Appointments None recorded. ? ? Lab None recorded. ? ? Referral None recorded. ? ? Procedures None recorded. ? ? Surgeries None recorded. ? ? Imaging None recorded. ? ? Vitals Height Weight BMI 5 ft 8.5 in 223 lbs 33.4 kg/m2
--- OUTSIDE RECORDS SUMMARY | 2022-01-01 11:46 | XMS_ITS | Encounter Summary ---
:1945 Author Organization [place] Address [address] [place] [address] Care Team Providers Name Role Phone Benjamin Henao MD Primary Care Provider Reason for Visit Reason Comments Orders Encounter Details Date Type Department Care Team Description 05/03/2020 Communication - [facility] Benjamin Henao MD Orders [address] [address] [place], [place] [phone] (Wo rk) [address] [phone] Social History Tobacco Use Types Packs/Day Years Used Date Former Smoker Quit: 09/28/18 90 Smokeless Tobacco: Never Used Comments: quit 27 yrs ago as of 09/28/2016 Alcohol Use Standard Drinks/Week Comments No 0 (1 standard drink = 0.6 oz pure alcoho l) Sex Assigned at Date Recorded Not on file documented as of this encounter Miscellaneous Notes Telephone Encounter - Isabella Conrad - 05/03/2020 7:18 AM CST Please change lab orders to future. Thank you STONE SPLITTER documented in this encounter Plan of Treatment Not on filedocumented as of this encounter Visit Diagnoses Not on filedocumented in this encounter Care Teams Service Counselor Relationship Specialty Start Date End Date Benjamin Henao MD PCP - General Internal Medicine 07/24/16 [address] [place] [address] documented as of this encounter
--- OUTSIDE RECORDS SUMMARY | 2022-01-01 11:46 | XMS_ITS | Encounter Summary ---
:1945 Author Organization [place] Address [address] [place] [address] Care Team Providers Name Role Phone Benjamin Henao MD Primary Care Provider Reason for Visit Reason Comments Follow Up Appointment Encounter Details Date Type Department Care Team Description 04/13/2020 Communication - [facility] [place] Benjamin Henao [facility]; [facility] Jose R FORTUNE Appointment [facility] [address] [facility] [address] [place] [phone] Social History Tobacco Use Types Packs/Day Years Used Date Former Smoker Quit: 09/28/18 90 Smokeless Tobacco: Never Used Comments: quit 27 yrs ago as of 09/28/2016 Alcohol Use Standard Drinks/Week Comments No 0 (1 standard drink = 0.6 oz pure alcoho l) Sex Assigned at Date Recorded Not on file documented as of this encounter Miscellaneous Notes Telephone Encounter - Judy Hansen CMA - 04/18/2020 10:27 AM CST Called and spoke with patient. Assisted patient in scheduling VV with Dr. Henao on 05/02 at 3:40 pm. Judy Hansen CMA H DRIER OPERATOR Telephone Encounter - Benjamin Henao MD - 04/13/2020 8:37 PM CST He's due for DM follow up with me. Please schedule him within the next 2-3 weeks at his convenience. H DRIER OPERATOR Telephone Encounter - Radha Terry - 04/13/2020 11:38 AM CST Patient is calling and was wondering when Dr. Henao would like him to follow up and get labs done.Please advise. Radha Terry CMA ............... 11:38 AM, 04/13/20 H DRIER OPERATOR documented in this encounter Plan of Treatment Not on filedocumented as of this encounter Visit Diagnoses Not on filedocumented in this encounter Care Teams Commercial Truck Driver Relationship Specialty Start Date End Date Benjamin Henao MD PCP - General Internal Medicine 07/24/16 [address] [place] [address] documented as of this encounter
--- OUTSIDE RECORDS SUMMARY | 2022-01-01 11:46 | XMS_ITS | Encounter Summary ---
:1945 Author Organization [place] Address [address] [place] [address] Care Team Providers Name Role Phone Benjamin Henao MD Primary Care Provider Encounter Details Date Type Department Care Team Description 05/09/2020 Orders Only [facility] Benjamin Henao MD Diabetic complication (H) (Primary Dx); Clinic [address] Type 2 di abetes mellitus with manifestations (H) [address] [address] [place], [place] [address] [place] [address] Social History Tobacco Use Types Packs/Day Years Used Date Former Smoker Quit: 09/28/18 90 Smokeless Tobacco: Never Used Comments: quit 27 yrs ago as of 09/28/2016 Alcohol Use Standard Drinks/Week Comments No 0 (1 standard drink = 0.6 oz pure alcoho l) Sex Assigned at Date Recorded Not on file documented as of this encounter Plan of Treatment Scheduled Orders Name Type Priority Associated Diagnoses Order S chedule Hemoglobin A1c Lab Routine Diabetic complic ation (H) Expected: 05/10/2020 Type 2 diabetes mellitus (Ap proximate), with manifestations (H) Expi res: 05/09/2021 Albumin Random Urine Lab Routine Diabetic co mplication (H) Expected: 05/10/2020 Quantitative with Creat Type 2 diabetes linda echeverria (Approximate), Ratio with manifestations (H) Expi res: 05/09/2021 documented as of this encounter Visit Diagnoses Diagnosis Diabetic complication (H) - Primary Type II or unspecified type diabetes mando litus with unspecified complication, not stated as uncontrolled Type 2 diabetes mellitus with manifestat ions (H) Type II or unspecified type diabetes mando litus with unspecified complication, not stated as uncontrolled documented in this encounter Care Teams Nuclear Medicine Technologist Relationship Specialty Start Date End Date Benjamin Henao MD PCP - General Internal Medicine 07/24/[address] [place] [address] documented as of this encounter
--- OUTSIDE RECORDS SUMMARY | 2022-01-01 11:46 | XMS_ITS | Encounter Summary ---
:1945 Author Organization [place] Address [address] [place] [address] Care Team Providers Name Role Phone Benjamin Henao MD Unavailable Benjamin Henao MD Primary Care Provider Encounter Details Date Type Department Care Team Description 10/20/2020 Records - [facility] Centralized Provider, [facility] Scheduling [address] [place] [address] Social History Tobacco Use Types Packs/Day Years Used Date Former Smoker Quit: 09/28/18 90 Smokeless Tobacco: Never Used Comments: quit 27 yrs ago as of 09/28/2016 Alcohol Use Standard Drinks/Week Comments No 0 (1 standard drink = 0.6 oz pure alcoho l) Sex Assigned at Date Recorded Not on file documented as of this encounter Miscellaneous Notes Telephone Encounter - Historical Provider - 10/20/2020 2:20 PM CDT Telephone Encounter by Alejandra Winter at 10/20/2020 2:20 PM Author: Alejandra Winter Service: -- Author Type: -- Filed: 10/20/2020 2:23 PM Encounter Date: 10/20/2020 Status: Signed Lead Pourer: Alejandra Winter Error documented in this encounter Plan of Treatment Not on filedocumented as of this encounter Visit Diagnoses Not on filedocumented in this encounter Care Teams Damage Adjuster Relationship Specialty Start Date End Date Benjamin Henao MD PCP - General Internal Medicine 07/24/[address] [place] [address] Benjamin Henao MD Assigned PCP 10/05/[address] [place] [address] documented as of this encounter
--- OUTSIDE RECORDS SUMMARY | 2022-01-01 11:46 | XMS_ITS | Encounter Summary ---
:1945 Author Organization [place] Address [address] [place] [address] Care Team Providers Name Role Phone Benjamin Henao MD Unavailable Benjamin Henao MD Primary Care Provider Encounter Details Date Type Department Care Team Description 03/22/2020 Records - [facility] HE CONVERSION Provider, Historsundeep jacobsen Social History Tobacco Use Types Packs/Day Years Used Date Former Smoker Quit: 09/28/18 90 Smokeless Tobacco: Never Used Comments: quit 27 yrs ago as of 09/28/2016 Alcohol Use Standard Drinks/Week Comments No 0 (1 standard drink = 0.6 oz pure alcoho l) Sex Assigned at Date Recorded Not on file documented as of this encounter Plan of Treatment Not on filedocumented as of this encounter Visit Diagnoses Not on filedocumented in this encounter Care Teams Employment Coordinator Relationship Specialty Start Date End Date Benjamin Henao MD PCP - General Internal Medicine 07/24/[address] [place] [address] Benjamin Henao MD Assigned PCP 10/05/[address] [place] [address] documented as of this encounter
--- OUTSIDE RECORDS SUMMARY | 2022-01-01 11:46 | XMS_ITS | Encounter Summary ---
:1945 Author Organization [place] Address [address] [place] [address] Care Team Providers Name Role Phone Benjamin Henao MD Unavailable Benjamin Henao MD Primary Care Provider Encounter Details Date Type Department Care Team Description 12/16/2020 Lab [facility] Pos toperative malabsorption (Primary Dx); [facility] Family history of diabetes linda echeverria; [facility] Elevated bilirubin [address] [place] [address] Social History Tobacco Use Types Packs/Day Years [...] / COVID-19? documented as of this encounter Plan of Treatment Not on filedocumented as of this encounter Procedures Procedure Name Priority Date/Time Associated Diagnosis Comme nts URINE MACROSCOPIC WITH Routine 12/16/2020 2:56 Elevated biliru bin Results for this REFLEX TO MICRO PM CDT procedure ar e in the results section. ZINC Routine 12/16/2020 2:17 Postoperative Results for this PM CDT malabsorption procedure are in the results section. 25 HYDROXYVITAMIN D2 & Routine 12/16/2020 2:17 Postoperative R esults for this D3 PM CDT malabsorption procedure are in the results section. VITAMIN B1 WHOLE BLOOD Routine 12/16/2020 2:17 Postoperative R esults for this PM CDT malabsorption procedure are in the results section. VITAMIN A Routine 12/16/2020 2:17 Postoperative Results for this PM CDT malabsorption procedure are in the results section. TSH Routine 12/16/2020 2:17 Postoperative Results for this PM CDT malabsorption procedure are in the results section. PARATHYROID HORMONE Routine 12/16/2020 2:17 Postoperative Resu lts for this INTACT PM CDT malabsorption procedure are in the results section. LIPID REFLEX TO DIRECT Routine 12/16/2020 2:17 Postoperative R esults for this LDL PANEL PM CDT malabsorption procedure are in the results section. HEMOGLOBIN A1C Routine 12/16/2020 2:17 Postoperative Results f or this PM CDT malabsorption procedure are in Family history of the result s diabetes mellitus section. FOLATE Routine 12/16/2020 2:17 Postoperative Results for this PM CDT malabsorption procedure are in the results section. FERRITIN Routine 12/16/2020 2:17 Postoperative Results for this PM CDT malabsorption procedure are in the results section. COMPREHENSIVE Routine 12/16/2020 2:17 Postoperative Results fo r this METABOLIC PANEL PM CDT malabsorption procedure a re in the results section. VITAMIN B12 Routine 12/16/2020 2:17 Postoperative Results for this PM CDT malabsorption procedure are in the results section. CBC WITH PLATELETS Routine 12/16/2020 2:17 Postoperative Resul ts for this PM CDT malabsorption procedure are in the results section. documented in this encounter Results UA reflex to Microscopic - lab collect (12/16/2020 2:56 PM CDT) [facility] Method Time Signature Color Urine Yellow Colorless, 12/16/2020 [facility] Straw, Light 2:59 PM CDT LABORATORY Yellow, Yellow Appearance Urine Clear Clear 12/16/2020 [facility] 2:59 PM CDT LABORATORY Glucose Urine Negative Negative 12/16/2020 [facility] mg/dL 2:59 PM CDT LABORATORY Bilirubin Urine Negative Negative 12/16/2020 [facility] 2:59 PM CDT LABORATORY Ketones Urine Negative Negative 12/16/2020 [facility] mg/dL 2:59 PM CDT LABORATORY Specific [place] 1.020 1.005 - 12/16/2020 [facility] Urine 1.030 [...] Organization Address City/State/ZIP Code Phon e Number [facility] - [address] [place] [address], [facility] - [address] (ABNORMAL) Lipid panel reflex to direct LDL Non-fasting (12/16/2020 2:17 PM CDT) [facility] Method Time Signature Cholesterol 160 <=199 12/16/2020 [facility] mg/dL 8:55 PM CDT Triglycerides 197 (H) <=149 12/16/2020 [facility] mg/dL 8:55 PM CDT Direct Measure 50 >=40 12/16/2020 [facility] HDL mg/dL 8:55 PM CDT Comment: HDL Cholesterol Reference Range: 0-2 years: No reference ranges established for asif ents under 2 years old ??at [facility] for lipid analytes. 2-8 years: Greater [...] Organization Address City/State/ZIP Code Phon [place] [address] [place] [address], [facility] [phone] Zinc (12/16/2020 2:17 PM CDT) athologist Signature [...] be elevated with zinc supplementation or fasting. ??Edwards ofelia zinc concentrations may interfere with copper absorption. This test was developed and its performa nce characteristics determined by [employer]. It has not been cleared or approved [...] PM CDT Narrative [facility] - 12/20/2020 4:04 AM CDT Performed By: [employer] [address] [place] [address] Sports Clerk: Promise Monsalve MD Santos Krishna MD LAB - BLOOD ORDERABLES Performing Organization Address City/[facility]/ZIP [facility] [place] [place] Phon e Number [email or web address] [employer] [email or web address] [place], [place] [phone] [place] [phone] (ABNORMAL) Vitamin B12 (12/16/2020 2:17 PM CDT) athologist Signature Vitamin B12 1,114 (H) 213 - 816 12/16/2020 [facility] pg/mL 9:29 PM CDT Specimen Anatomical Collection Method / Collection Time Recei nona Time (Source) Location / Volume Laterality Blood BLOOD SPECIMEN / Venipuncture / 12/16/2020 2:17 2020 2:18 Unknown Unknown PM CDT PM CDT Santos Krishna MD LAB - BLOOD ORDERABLES Performing Organization Address City/State/ZIP [facility] [place] [place] Phon [place] [address] [place] [address], [facility] [phone] [place] [address]. (ABNORMAL) Vitamin B1 whole blood (12/16/2020 2:17 PM CDT) P athologist Signature Vitamin B1 182 (H) 70 - 180 12/20/2020 [facility] Whole Blood nmol/L 9:45 AM CDT Level [...] and its performa nce characteristics determined by [employer]. It has not been cleared or approved by the [place] Food and Drug Adminis tration. This test was performed in a CLIA certified labora tory and is intended for clinical purposes. Specimen Anatomical Collection Method / Collection Time Recei nona Time (Source) Location / Volume Laterality Blood BLOOD SPECIMEN / Venipuncture / 12/16/2020 2:17 2020 2:18 Unknown Unknown PM CDT PM CDT Narrative [facility] - 12/20/2020 9:45 AM CDT Performed By: [employer] [address] [place] [address] Sports Clerk: Promise Monsalve MD Santos Krishna MD LAB - BLOOD ORDERABLES Performing Organization Address City/State/ZIP Code Phon e Number [place], [place] [phone] [place] [phone] Vitamin A (12/16/2020 2:17 PM CDT) P athologist Signature Vitamin A 0.70 0.30 - 12/18/2020 [facility] 1.20 mg/L 9:40 PM CDT Retinol 0.07 0.00 - 12/18/2020 [facility] Palmitate 0.10 mg/L 9:40 PM CDT Vitamin A Normal 12/18/2020 [facility] Interp 9:40 PM CDT Comment: This test was developed and its performa nce characteristics determined by [employer]. It has not been cleared or approved [...] CDT PM CDT Narrative [facility] - 12/18/2020 9:40 PM CDT Performed By: [employer] [address] [place] [address] Sports Clerk: Promise Monsalve MD Santos Krishna MD LAB - BLOOD ORDERABLES Performing Organization Address [facility]/ZIP [facility] [place] [place] Phon e Number [place], [place] [phone] [address] By [facility] [phone] TSH (12/16/2020 2:17 PM CDT) athologist Signature TSH 1.75 0.30 - 5.00 12/16/2020 [facility] uIU/mL 9:28 PM CDT Specimen Anatomical Collection Method / Collection Time Recei nona Time (Source) Location / Volume Laterality Blood BLOOD SPECIMEN / Venipuncture / 12/16/2020 2:17 2020 2:18 Unknown Unknown PM CDT PM CDT Santos Krishna MD LAB - BLOOD ORDERABLES Performing Organization Address City/[facility] Phon e Number [facility] [place] [address] LABORATORY [place] [phone] [place] [address] Parathyroid Hormone Intact (12/16/2020 2:17 PM CDT) athologist Signature Parathyroid 83 10 - 86 12/16/2020 [facility] Hormone Intact pg/mL 9:55 PM CDT Specimen Anatomical Collection Method / Collection Time Recei nona Time (Source) Location / Volume Laterality Blood BLOOD SPECIMEN / Venipuncture / 12/16/2020 2:17 2020 2:18 Unknown Unknown PM CDT PM CDT Santos Krishna MD LAB - BLOOD ORDERABLES Performing Organization Address City/[facility]/ZIP Code Phon e Number [facility] [place] [address] [place] [address], [facility] [phone] (ABNORMAL) Hemoglobin A1c (12/16/2020 2:17 PM CDT) Analysis Performed At [facility] logist Time Signature Hemoglobin A1C 6.0 (H) [...] LAB - BLOOD ORDERABLES Performing Organization Address City/[facility]/ZIP Code Phon e Number [facility] LABORATORY [place], [place] [address] [place] [address] [place] [address], [address] Folate (12/16/2020 2:17 PM CDT) [facility] Folic Acid 18.0 >=3.5 ng/mL 12/16/2020 [facility] 10:02 PM CDT Specimen Anatomical Collection Method / Collection Time Recei nona Time (Source) Location / Volume Laterality Blood BLOOD SPECIMEN / Venipuncture / 12/16/2020 2:17 2020 2:18 Unknown Unknown PM CDT PM CDT Santos Krishna MD LAB - BLOOD ORDERABLES Performing Organization Address City/State/ZIP Code Phon e Number [facility] [place] [address] [facility] [address] [facility] [place] [address], [facility] [phone] Ferritin (12/16/2020 2:17 PM CDT) athologist [facility] Ferritin 30 80 - 300 12/16/2020 [facility] ng/mL 9:29 PM CDT Specimen Anatomical Collection Method / Collection Time Recei nona Time (Source) Location / Volume Laterality Blood BLOOD SPECIMEN / Venipuncture / 12/16/2020 2:17 2020 2:18 Unknown Unknown PM CDT PM CDT Santos Krishna MD LAB - BLOOD ORDERABLES Performing Organization Address City/State/ZIP Code Phon [place] [address] [place] [address], [facility] [phone] (ABNORMAL) Comprehensive metabolic panel (12/16/2020 2:17 PM CDT) [facility] Method Time Signature Sodium 139 136 - [...] Organization Address City/State/ZIP Code Phon e Number [facility] [place] [address] [facility] [place], [place] [address] [phone] [place] [address] (ABNORMAL) CBC with platelets (12/16/2020 2:17 PM CDT) [facility] Method Time Signature WBC Count 10.9 4.0 [...] Organization Address City/State/ZIP Code Phon e Number [facility] [address] 25 Hydroxyvitamin D2 and D3 (12/16/2020 2:17 PM CDT) athologist Signature 25 [place] Vitamin <5 ug/L 12/20/2020 [facility] D2 1:56 PM CDT SPECIAL CHEM 25 [place] Vitamin 35 ug/L 12/20/2020 [facility] D3 1:56 PM CDT SPECIAL CHEM 25 [place] Vit D <40 20 - 75 12/20/2020 [facility] Total ug/L 1:56 PM CDT SPECIAL CHEM Comment: Season, race, dietary intake, a nd treatment affect the concentration of 02-fpvhuhr-Gldjidi D. Values may decreas e during winter months and increase during summer months. Values 20-29 ug/L may ind icate Vitamin D insufficiency and values <20 ug/L may indicate Vitamin D deficiency. Specimen Anatomical Collection Method / Collection Time Recei nona Time (Source) Location / Volume Laterality Blood BLOOD SPECIMEN / Venipuncture / 12/16/2020 2:17 2020 2:18 Unknown Unknown PM CDT PM CDT Narrative [facility] SPECIAL [facility]M - 12/20/2020 1:56 P M CDT This test was developed and its performa nce characteristics determined by the [facility], ??Special Chemistry Laboratory. It has not been cleared or approved by the FDA. The laboratory is regulated under CLIA as qualified to perform high-complexity le ting. This test is used for clinical purposes. It should not be regarded as i nvestigational or for research. 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
--- OUTSIDE RECORDS SUMMARY | 2022-01-01 11:46 | XMS_ITS | Encounter Summary ---
:1945 Author Organization [place] Address [address] [place] [address] Care Team Providers Name Role Phone Benjamin Henao MD Unavailable Benjamin Henao MD Primary Care Provider Encounter Details Date Type Department Care Team Description 12/16/2020 Travel Social History Tobacco Use Types Packs/Day Years [...] on filedocumented in this encounter Care Teams Biometrics Technician Relationship Specialty Start Date End Date Benjamin Henao MD PCP - General Internal Medicine 07/24/161824 [place] [address] Benjamin Henao MD Assigned PCP 10/05/201824 [place] [address] documented as of this encounter
--- OUTSIDE RECORDS SUMMARY | 2022-01-01 11:47 | XMS_ITS | Encounter Summary ---
:1945 Author Organization [place] Address [address] [place] [address] Care Team Providers Name Role Phone Benjamin Henao MD Primary Care Provider Reason for Visit Reason Comments Medication Refill Encounter Details Date Type Department Care Team Description 09/24/2018 Communication - [facility] Medicat ion [facility] [address] [place] [phone] Social History Tobacco Use Types Packs/Day Years Used Date Former Smoker Quit: 08/27/18 90 Alcohol Use Standard Drinks/Week Comments Yes 0 (1 standard drink = 0.6 oz pure alcoho l) Sex Assigned at Date Recorded Not on file documented as of this encounter Plan of Treatment Not on filedocumented as of this encounter Visit Diagnoses Diagnosis Low vitamin D level documented in this encounter Care Teams Swine Genetics Researcher Relationship Specialty Start Date End Date Benjamin Henao MD PCP - General Internal Medicine 07/24/16 [address] [place], [place] [phone] documented as of this encounter
--- OUTSIDE RECORDS SUMMARY | 2022-01-01 11:47 | XMS_ITS | Encounter Summary ---
:1945 Author Organization [place] Address [address] [place] [address] Care Team Providers Name Role Phone Benjamin Henao MD Unavailable Benjamin Henao MD Primary Care Provider Encounter Details Date Type Department Care Team Description [facility]/26/2018 [facility], Winter jacobsen Social History Tobacco Use Types Packs/Day [...] on filedocumented in this encounter Care Teams Fiberglass Bonding Machine Tender Relationship Specialty Start Date End Date Benjamin Henao MD PCP - General Internal Medicine 07/24/[address] [place] [address] Benjamin Henao MD Assigned PCP 10/05/[address] [place] [address] documented as of this encounter
--- OUTSIDE RECORDS SUMMARY | 2022-01-01 11:47 | XMS_ITS | Encounter Summary ---
:1945 Author Organization [place] Address [address] [place] [address] Care Team Providers Name Role Phone Benjamin Henao MD Unavailable Benjamin Henao MD Primary Care Provider Encounter Details Date Type Department Care Team Description [facility], Winter jacobsen Social [...] on filedocumented in this encounter Care Teams Health And Safety Manager Relationship Specialty Start Date End Date Benjamin Henao MD PCP - General Internal Medicine 07/24/[address] [place] [phone] Benjamin Henao MD Assigned PCP 10/05/[address] [place] [address] documented as of this encounter
--- OUTSIDE RECORDS SUMMARY | 2022-01-01 11:47 | XMS_ITS | Encounter Summary ---
:1945 Author Organization [facility] Address [address] [place] [id number] Care Team Providers Name Role Phone Benjamin Henao MD Primary Care Provider Reason for Visit Reason Comments Nutrition Counseling Encounter Details Date Type Department Care Team Description 07/22/2017 Office Visit - M [facility] ProviderSahil surgery status; [facility] and Historical Obesity ( BMI 30-39.9); Bariatrics Care [facility] [address] [phone] Social History Tobacco Use Types Packs/Day Years Used Date Former Smoker Quit: 08/27/18 90 Alcohol Use Standard Drinks/Week Comments Yes 0 (1 standard drink = 0.6 oz pure alcoho l) Sex Assigned at Date Recorded Not on file documented as of this encounter Last Filed Vital Signs Vital Sign Reading Time Taken Comments Blood Pressure - - Pulse - - Temperature - - Respiratory Rate - - Oxygen Saturation - - Inhaled Oxygen Concentration - - Weight 108 kg (238 lb) 07/22/2017 12:00 PM CDT Height 172.7 cm (5' 8) 07/22/2017 12:00 PM CDT Body Mass Index 36.19 07/22/2017 12:00 PM CDT documented in this encounter Progress Notes Historical Provider - 07/22/2017 11:30 AM CDT Post-op Surgical Weight Loss Diet Evaluation Assessment: Pt presents for 3 months post-op RD visit, s/p RNY on 05/01/[address] Grant. Today we reviewed current eating habits and level of physical activity, and instructed on the changes that are required for successful bariatric outcomes. Patient Progress: Pt is happy with surgery results, continuing to lose weight and has a lot of energy Concerns: Pt snacking throughout day - discussed mental vs physical hunger; pt eating too fast and not chewing well enough for some meals - vomiting (discussed) Diabetes Testing Blood Sugars: 110-130 Vitamins Multi Vit with Iron: yes Calcium Citrate: yes B12: yes D3: yes Do you experience hunger? Yes Do you have dumping syndrome? No Do you experience any reflux or discomfort with eating? No -Are you still taking omeprazole? Is this new since you stopped taking it? Nausea: yes Vomiting: yes Diarrhea: no Constipation: no Hair loss:no Diet Recall/Time: Protein Shake (15g) Breakfast: 1 egg w/ ham (10g) Am Snack: Protein shake (20g) Lunch: Pro/Veg (10g) Pm snack: Protein shake (15g) Dinner: Pro/Veg (10g) HS Snack: hungry - ice cream OR Typical Snacks: veggies, tabouli, protein shakes, ice cream Proteins/Veg/Fruits/CHO (NOT well tolerated): none Estimated protein intake: 60-75 grams Estimated portion size per meals:1/4-1/2 cup/meal Incorporation of vegetables, fruits, carbohydrates into diet/meals using Bariatric Plate Method The patient and I discussed the importance of including lean/low fat protein at each meal, includinga vegetable/fruit, and limiting carbohydrate intake to less than 25% of plate volume. Always keepingwithin approved perimeters of post op meal portion sizes according to 3 months post op guidelines. Healthy Fats: olive oil Meals per week away from home: 1X/month Recommended limiting eating out to no more than 2x/week. Meal Duration:15 minutes at bfast Encouraged slowing meal times down, 20-30 minutes, chewing to applesauce consistency. Fluid-meal separation: Fluids are 30min before and 30 minutes after meals. The patient and I reviewed the anatomy of the bypass and why fluids from a meal is so important. Fluid Intake Water: 64oz Caffeine: none Alcohol: none Carbonation: none Milk: none Juice: none Discussed the importance of adequate hydration after surgery and the goal of 64+ oz of fluid daily. The patient understands the importance of avoiding all carbonated, caffeinated, and sweetened drinks; and instead choosing 64oz plain water. Exercise Walking 5 miles/day 4X/week Pt's understands that 30-60 minutes of daily activity is an important part of bariatric surgery success. Encouraged pt to incorporate strength training exercise along with cardiovascular exercise as well, most days of the week. PES statement: 1. (NC-1.4) Altered GI Function related to Alteration in gastrointestinal tract structure and/or function/ Decreased functional length of the GI tract as evidenced by Weight loss of 20% initial body weight; Gastric bypass surgery Intervention Discussion 1. Discussed 3 months Post-Op Nutritional Guidelines for RNY 2. Recommended to consume 15-20gm protein at 3 meals daily, along with protein supplement/planned protein containing snack of 15-30gm protein, to reach goal of 60-80 gm protein daily. 3. Educated on post-op vitamin regimen: Multi Vit + iron 2x/day, calcium citrate 400-600 mg 2x/day, 7832-7115 mcg of Sublingual B-12 daily, and 5000 IU Vitamin D3 daily (MVI and calcium can be taken atthe same time BID) 4. Reviewed lean protein sources 5. Bariatric Plate Method- including lean/low fat protein at each meal, including a vegetable/fruit,and limiting carbohydrate intake to less than 25% of plate volume. Approved perimeters of post op meal portion sizes according to 3 months post op guidelines. Instructions 1. Include 15-20gm protein at each meal, along with protein supplement/planned protein containing snack of 15-30gm protein, to reach goal of 60-80 gm protein daily. 2. Increase fluid intake to 64oz daily: choose plain or calorie/carbonation-free beverages. 3. Incorporate daily structured activity, 30-60 minutes most days of the week 4. Recommended pt to start taking: Multi Vit + iron 2x/day, calcium citrate 400- 600 mg 2x/day, 7788-6584 mcg of Sublingual B-12 daily, and 5000 IU Vitamin D3 daily. (MVI and calcium can be taken at thesame time) 5. Read food labels more consistently: keeping total fat grams <10, total sugar grams <10, fiber >3gm per serving. 6. Increase vegetable/fruit intake, by having a vegetable or fruit with each meal daily. 7. Practice plate method: 1/2 plate lean/low fat protein source, vegetable/fruit, <25% of plate complex carbohydrates. 8. Separate fluids 30 minutes before/after meal times. 9. Practice eating off of smaller plates/bowls, chewing to applesauce consistency, taking 20-30 minutes to eat in a calm/relaxed environment without distractions of tv/email/cell phone. Handouts provided: 3 months Post-Op Nutritional Guidelines for RNY Monitor/Evaluation Pt to follow up for 6 months post-op visit with bariatrician - scheduled Time In: 11:40a Time Out: 12:30p ABN signed: Yes documented in this encounter Plan of Treatment Not on filedocumented as of this encounter Visit Diagnoses Diagnosis Bariatric surgery status Obesity (BMI 30-39.9) Obesity, unspecified Dietary counseling Dietary surveillance and counseling documented in this encounter Care Teams Hall Director Relationship Specialty Start Date End Date Benjamin Henao MD PCP - General Internal Medicine 07/24/16 [address] [place] [address] documented as of this encounter
--- OUTSIDE RECORDS SUMMARY | 2022-01-01 11:47 | XMS_ITS | Encounter Summary ---
:1945 Author Organization [facility] Address [address] [place] [address] Care Team Providers Name Role Phone Benjamin Henao MD Primary Care Provider Reason for Visit Reason Comments Weight Problem 6MO post RNY with Dr. Grant Encounter Details Date Type Department Care Team Description 11/06/2017 Office Visit - M [facility], High cho lesterol; [facility] and MD Santos Low vitamin D level; Bariatrics Care 2945 Type II diab etes mellitus (H); [facility] Postoperative malabsorption; [address] Hx of gastric bypass; [address] [place], [place] [phone] Social History Tobacco Use Types Packs/Day Years [...] - Inhaled Oxygen Concentration - - Weight 102.1 kg (225 lb) 11/06/2017 10:29 AM CDT Height 172.7 cm (5' 8) 11/06/2017 10:29 AM CDT Body Mass Index 34.21 11/06/2017 10:29 AM CDT documented in this encounter Progress Notes Santos Krishna MD - 11/06/2017 10:30 AM CDT Bariatric Care Clinic Follow Up Visit for Previous Bariatric Surgery Date of visit: 11/06/2017 Physician: Santos Krishna MD Primary Care is Benjamin Henao MD. Faith Adames 72 y.o. male Date of Surgery: 05/01/17 Initial Weight: 313 lbs Initial BMI: 46.9 Today's Weight: Wt Readings from Last 1 Encounters: 11/06/17 (!) 225 lb (102.1 kg) Body mass index is 34.21 kg/(m^2). Weight: 225 lb (102.1 kg) Assessment and Plan Assessment: Faith is a 72 y.o. 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 Grant. He has had a durable weight loss of 88 lbs since surgery. Overall compliance with the [facility] has been good apart from perhaps a few too many snacks throughout the day which likely has contributed to a slightly early stabilization in his weight at it's current level. He's exercising wonderfully, 100 minutes daily. Feels good overall and is happy with his results even despite the complications requiring splenectomy at the time of his procedure. He's now off his insulin, atenolol and statin medication. He did have some concerns about his cholesterol today and requested restarting a low dose lipitor which I provided for himtoday and advise he follow up wih his PCP if ongoing use is desired (strong family vascular disease/RI hx in 3 of his brothers). The bad breath he complains about could be some ketosis from higher protein diet but could have some decreased stomach acidity/maldigestion issues as well. Currently is trying some treatments. Could consider digestive enzyme support in the future if ongoing problems. His diabetes has been put into remission and we'll look to reduce his metformin to once daily given his normal A1c. If continuing to be well controlled after 3 months, will come off and recheck levels at his one year visit to determine what level of support he'll need following bariatric surgery/weight loss/diet change. . Faith Adames feels that he has achieved his preoperative goals for bariatric surgery. Plan: 1. Great job so far, continue good bariatric technique with protein first at each meal, and chewing thoroughly and beverages from meals. Given your heavy workout regimen, aim to keep additional snacks to no more than one ideally and make it a mix of protein and complex carbs. 2. Consider restarting low dose statin therapy with Dr. Henao. You requested starting back on it so 90 days of low dose, 10mg was sent. Consider taking 300mg daily of Co Q 10 to optimize aerobic/muscular performance. 3. Reduce your B12 to an average of 500mcg daily. 4. Follow up with automation consultant for 9 month visit. 5. Reduce the metformin to once daily and we'll recheck your A1c in 3 months. If doing well, anticipate coming off metformin at that time and rechecking levels again at your one year visit. 6. Reduce omeprazole to every other day for 2-3 weeks then stop. If bad breath continues call and wecan get you set up with some digestive enzyme support if needed. 7. Low ferritin/anemia: using 18mg two times a day of iron with his twice daily multivitamin and recommended 4-6 weeks of vitron C. 1. High cholesterol atorvastatin (LIPITOR) 10 MG tablet 2. Low vitamin D level cyanocobalamin, vitamin B-12, 1,[address] cholecalciferol, vitamin D3, (VITAMIN D3) 5,000 unit Tab DISCONTINUED: cholecalciferol, vitamin D3, (VITAMIN D3) 5,000 unit Tab 3. Type II diabetes mellitus (H) Glycosylated Hemoglobin A1c 4. Postoperative malabsorption 5. Hx of gastric bypass No Follow-up on file. Bariatric Surgery Review Interim History/LifeChanges: stable Patient Concerns: cholesterol and desiring to return to statin therapy in light of family hx. Medication changes: still on two times a day metfomin, stopped atenolol. Stopped his lipitor and offinsulin therapy completely. Appetite (1-10): hunger frequently so snacking more, works out 90-100minutes every morning. GERD sx at all? No but bad breath. Vitamin Intake: Multivitamin bid Vitamin D yes, 5000IUs. Calcium BID Vit. B-12 2500mcg will switch to twice daily. Habits: Alcohol Intake none NSAID Use avoiding, Caffeine Use some Exercise 100minutes daily. CPAP Use: na Control na MBSAQIP Surgeon: Ashkan Grant MD Anticoag for PE/DVT since last visit: No Patient complains of hernia: No Readmit since last visit: No Reoperation since last visit: No Vomiting: Less than monthly GERD req medication: (!) Yes Sleep Apnea: (!) Yes Hypertension req meds: (!) Yes # of Antihyperintensive Meds: 1 Hyperlipidemia req meds: No Diabetes: Non-Insulin Symptoms Hair Loss: Yes Reactive Hypoglycemia: No Abdominal Pain: No Nausea: No Heartburn: No Constipation: No Diarrhea: No Trouble Breathing or Chest Pain: No Leg Swelling: No Skin rashes under folds: No LABS: Reviewed LABS: Lab Results Component Value Date WBC 12.8 (H) 10/22/2017 HGB 11.9 (L) 10/22/2017 HCT 37.1 (L) 10/22/2017 MCV 89 10/22/2017 PLT 311 10/22/2017 Lab Results Component Value Date [id number] 40.2 10/22/2017 Lab Results Component Value Date HGBA1C 5.6 10/22/2017 Lab Results Component Value Date CHOL 210 (H) 10/22/2017 Lab Results Component Value Date PTH 42 10/22/2017 Lab Results Component Value Date FERRITIN 25 (L) 10/22/2017 Lab Results Component Value Date HDL 45 10/22/2017 Lab Results Component Value Date [id number] >2000 (H) 10/22/2017 Lab Results Component Value Date [id number] 118 10/19/2016 Lab Results Component Value Date LDLCALC 137 (H) 10/22/2017 Lab Results Component Value Date TSH 2.37 10/19/2016 Lab Results Component Value Date FOLATE 18.2 10/22/2017 Lab Results Component Value Date TRIG 141 10/22/2017 Lab Results Component Value Date ALT 14 10/22/2017 AST 18 10/22/2017 ALKPHOS 107 10/22/2017 BILITOT 0.7 10/22/2017 No results found for: TESTOSTERONE No components found for: CHOLHDL Lab Results Component Value Date 7597 47.9 10/19/2016 @yaneli(vitamin a: 1)@ Patient Profile Social History Social History Narrative Past Medical History History reviewed. No pertinent past medical history. Patient Active Problem List Diagnosis ??? Benign Adenomatosis Of The Large Intestine ??? Insomnia ??? Obesity ??? Type 2 diabetes mellitus (H) ??? 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 Colonic Diverticulosis ??? Coronary Artery Disease ??? Hyperlipidemia ??? Hypertension ??? Esophageal reflux ??? Obstructive sleep apnea ??? Benign Prostatic Hypertrophy ??? Microalbuminuria ??? H/O gastric bypass Current Outpatient Prescriptions Medication Sig Note ??? aspirin 81 mg chewable tablet Chew 81 mg daily. ??? cetirizine (ZYRTEC) 10 mg cap Take 1 tablet by mouth daily. ??? CONTOUR TEST STRIPS strips 04/08/2017: Received from: External Pharmacy ??? cyanocobalamin, vitamin B-12, 1,[address] 1 tablet (1,000 mcg total) under the tongue every other day. ??? losartan (COZAAR) 50 MG tablet Take 50 mg by mouth daily. ??? metFORMIN (GLUCOPHAGE) 500 MG tablet Take 500 mg by mouth daily. ??? MICROLET LANCET 04/08/2017: Received from: External Pharmacy ??? omeprazole (PRILOSEC) 20 MG capsule Take 20 mg by mouth daily. ??? pediatric multivitamin (FLINTSTONES) Chew chewable tablet Chew 1 tablet 2 (two) times a day. ??? atorvastatin (LIPITOR) 10 MG tablet Take 1 tablet (10 mg total) by mouth at bedtime. ??? cholecalciferol, vitamin D3, (VITAMIN D3) 5,000 unit Tab Take 1 tablet (5,000 Units total) by mouth daily. Past Surgical History He has a past surgical history that includes pr lap gastric bypass/ramiro-en-y (N/A, 05/01/2017) and Splenectomy. Examination BP 128/72 (Patient Site: Right Arm, Patient Position: Sitting, Cuff Size: Adult Large) Pulse 65 Ht 5' 8 (1.727 m) Wt (!) 225 lb (102.1 kg) SpO2 98% BMI 34.21 kg/m2 Height: 5' 8 (1.727 m) (11/06/2017 10:29 AM) Initial Weight: 319.6 lbs (07/22/2017 12:00 PM) Weight: 225 lb (102.1 kg) (11/06/2017 10:29 AM) Weight loss from initial: 81.6 (07/22/2017 12:00 PM) % Weight loss: 25.53 % (07/22/2017 12:00 PM) BMI (Calculated): 34.2 (11/06/2017 10:29 AM) SpO2: 98 % (11/06/2017 10:29 AM) Heart Rate (/min): 65 (11/06/2017 10:29 AM) BP (mmHg): 128/72 (11/06/2017 10:29 AM) NSAIDS: Yes (05/21/2017 10:24 AM) Pain Scale: 0 (05/21/2017 10:24 AM) General: Alert and ambulatory, HEENT: No conjunctival pallor, moist mucous Membranes, neck is thin. Some thinning of hair. I do notdetect malodorous breath currently. Pulmonary: Normal respiratory effort, no cough, no audible wheezes/crackles. CV: Regular rate and Rhythm, no murmurs, pulses 2 plus Abdominal: midline/open RNY scar well healed, no hernia, non tender. Extremities: No edema or rash. Stands easily. Skin: No pallor or jaundice. Good hair on legs/chest. Pscyh/Mood: happy with results. Having some increased hunger but declined appetite suppressant. Counseling: We reviewed the important post op bariatric [...] of life-long vitamin supplementation and life-long follow-up. Sousarita was reminded that, to avoid marginal ulcers he should avoid tobacco at all, alcohol in excess, caffeine in excess, and NSAIDS (unless indicated for cardioprotection or othewise and opposed by aPPI). At least 25 minutes was spent in direct consultation and over 50% of the time devoted to counseling regarding maximizing the benefits of his previous bariatric surgery while minimizing risks of nutritional or structural complications. Santos Krishna MD [facility]. 11/06/2017 10:39 AM documented in this encounter Plan of Treatment Not on filedocumented as of this encounter Visit Diagnoses Diagnosis High cholesterol Pure hypercholesterolemia Low vitamin D level Type II diabetes mellitus (H) Type II or unspecified type diabetes mando litus without mention of complication, not stated as uncontrolled Postoperative malabsorption Other and unspecified postsurgical nonab sorption Hx of gastric bypass Bariatric surgery status H/O gastric bypass Bariatric surgery status documented in this encounter Care Teams Care Transition Coordinator Relationship Specialty Start Date End Date Benjamin Henao MD PCP - General Internal Medicine 07/24/16 [address] [place] [address] documented as of this encounter
--- OUTSIDE RECORDS SUMMARY | 2022-01-01 11:47 | XMS_ITS | Encounter Summary ---
:1945 Author Organization [facility] Address [address] [place] [id number] Care Team Providers Name Role Phone Benjamin Henao MD Primary Care Provider Reason for Visit Reason Comments Diabetes status check post bariatric surgery Encounter Details Date Type Department Care Team Description 05/31/2017 Communication - [facility] Kisha Krishna (status [facility] and MD Santos check post bariatric Bariatrics Care [facility] surg... [address] [phone] Social History Tobacco Use Types Packs/Day Years Used Date Former Smoker Quit: 08/27/18 90 Alcohol Use Standard Drinks/Week Comments Yes 0 (1 standard drink = 0.6 oz pure alcoho l) Sex Assigned at Date Recorded Not on file documented as of this encounter Plan of Treatment Not on filedocumented as of this encounter Visit Diagnoses Not on filedocumented in this encounter Care Teams Director Of Recruitment Relationship Specialty Start Date End Date Benjamin Henao MD PCP - General Internal Medicine 07/24/16 [address] [place] [address] documented as of this encounter
--- OUTSIDE RECORDS SUMMARY | 2022-01-01 11:47 | XMS_ITS | Encounter Summary ---
:1945 Author Organization [facility] Address [address] [place] [address]. [place] [address] Care Team Providers Name Role Phone Benjamin Henao MD Primary Care Provider Reason for Visit Reason Comments Follow Up Cystitis along with microsco pic hematuria. I am going to treat him with 10 days of Cipro. Follow-up as needed. He will get a repeat urinalysis after his course of antibiotics to confirm resolution of the hematuria. If it does not resolve we will lik yesika need to refer him to urology. Hernia incisional hernia - develope d over that last 2 days Encounter Details Date Type Department Care Team Description 01/02/2019 Office Visit - [facility] Benjamin Henao, Inci sional hernia, without obstruction or gangrene; [facility] Jose R FORTUNE Dysuria; [facility] [address] [facility] Screening for prostate cance r; [address] [place] [phone] Social History Tobacco Use Types Packs/Day Years Used Date Former Smoker Quit: 08/27/18 90 Alcohol Use Standard Drinks/Week Comments Yes 0 (1 standard drink = 0.6 oz pure alcoho l) Sex Assigned at Date Recorded Not on file documented as of this encounter Last Filed Vital Signs Vital Sign Reading Time Taken Comments Blood Pressure 138/64 01/02/2019 11:08 AM CDT Pulse 60 01/02/2019 11:08 AM CDT Temperature - - Respiratory Rate - - Oxygen Saturation - - Inhaled Oxygen Concentration - - Weight - - Height - - Body Mass Index - - documented in this encounter Progress Notes Benjamin Henao - 01/02/2019 11:00 AM CDT ASSESSMENT and PLAN: #1. Cystitis. He has been appropriately treated with antibiotics. He desires a repeat urinalysis today. He believes that he may have had prostatitis and wants his PSA checked today. I will go ahead andcheck this although this may be elevated because of his recent infection. If it is we would likely give it a couple of weeks to see if it will go down on its own. 2. Incisional hernia. He is going to sit down with his surgeon possible repair. 3. Status post splenectomy. He will need a Pneumovax every 5 years. Problem List Items Addressed This Visit S/P splenectomy Other Visit Diagnoses Incisional hernia, without obstruction or gangrene - Primary Dysuria Relevant Orders Urinalysis-UC if Indicated (Completed) Screening for prostate cancer Relevant Orders PSA, Annual Screen (Prostatic-Specific Antigen) (Completed) There are no Patient Instructions on file for this visit. There are no discontinued medications. No follow-ups on file. CHIEF COMPLAINT: Chief Complaint Patient presents with ??? Follow-up Cystitis along with microscopic hematuria. I am going to treat him with 10 days of Cipro. Follow-upas needed. He will get a repeat urinalysis after his course of antibiotics to confirm resolution of the hematuria. If it does not resolve we will likely need to refer him to urology. ??? Hernia incisional hernia - developed over that last 2 days HISTORY OF PRESENT ILLNESS: Faith Adames is a 73 y.o. male presenting to the clinic today for follow up of cystitis and apossible incisional hernia. He was treated with 10 days of Cipro which he tolerated well. His symptoms have completely abated at this time. He is concerned that he may have had prostatitis, although evaluating this retrospectively would be very difficult at this time. He also feels he may have developed an incisional hernia over the last couple of days. No pain associated with it. No bowel difficulties. REVIEW OF SYSTEMS: Pertinent positives noted in HPI, remainder of ROS is negative. MEDICATIONS: Current Outpatient Medications Medication Sig Dispense Refill ??? aspirin 81 mg chewable tablet Chew 81 mg daily. ??? atorvastatin (LIPITOR) 10 MG tablet Take 1 tablet (10 mg total) by mouth at bedtime. 90 tablet 0 ??? calcium citrate-vitamin D3 500 mg calcium -400 unit Chew Chew 1 tablet. ??? cholecalciferol, vitamin D3, (VITAMIN D3) 5,000 unit Tab Take 1 tablet (5,000 Units total) by mouth daily. 90 tablet 3 ??? CONTOUR TEST STRIPS strips ??? cyanocobalamin, vitamin B-12, 1,[address] 1 tablet (1,000 mcg total) under the tongue every other day. 45 tablet 3 ??? doxepin (SINEQUAN) 10 MG capsule Take 10 mg by mouth at bedtime as needed. ??? losartan (COZAAR) 50 MG tablet Take 50 mg by mouth daily. ??? MICROLET LANCET ??? pediatric multivitamin (FLINTSTONES) Chew chewable tablet Chew 1 tablet 2 (two) times a day. ??? sildenafil (VIAGRA) 100 MG tablet Take 1 tablet (100 mg total) by mouth daily as needed for erectile dysfunction. 30 tablet 3 No current facility-administered medications for this visit. TOBACCO USE: Social History Tobacco Use Smoking Status Former Smoker ??? Last attempt to quit: 09/28/1989 ??? Years since quittin.3 Smokeless Tobacco Never Used Tobacco Comment quit 27 yrs ago as of 09/28/2016 VITALS: Vitals: 01/02/19 1108 BP: 138/64 Pulse: 60 Wt Readings from Last 3 Encounters: 01/07/19 (!) 229 lb (103.9 kg) 12/23/18 (!) 228 lb (103.4 kg) 11/21/18 (!) 226 lb (102.5 kg) PHYSICAL EXAM: Constitutional: Reveals an alert, pleasant male. HEET: Normocephalic, without obvious abnormality, atraumatic. Neurologic: Normal gait and station Psychologic: Normal affect Abdomen. There is a small incisional hernia in his gastric bypass scar, easily reducible. \ documented in this encounter Plan of Treatment Not on filedocumented as of this encounter Procedures Procedure Name Priority Date/Time Associated Comments Diagnosis PROSTATE SPECIFIC Routine 01/02/2019 11:44 Result s for this ANTIGEN SCREEN AM CDT procedure are in the results section. ROUTINE UA WITH Routine 01/02/2019 11:15 Results for this MICROSCOPIC REFLEX TO AM CDT proced ure are in CULTURE the results section. documented in this encounter Results (ABNORMAL) Prostate spec antigen screen (01/02/2019 11:44 AM CDT) P athologist Signature Prostate 8.7 (H) 0.0 - 6.5 01/02/2019 Specific ng/mL 7:08 PM CDT Antigen Screen Specimen Anatomical Collection Method / Collection Time Recei nona Time (Source) Location / Volume Laterality Blood specimen Venipuncture / 01/02/2019 11:44 019 6:04 (specimen) Unknown AM CDT PM CDT Narrative 01/02/2019 7:08 PM CDT Method is [place] Prostate-Specific Antigen (PSA) Standard-WHO 1st International (90:10) Benjamin Henao MD LAB - BLOOD ORDERABLES UA with Microscopic reflex to Culture (01/02/2019 11:15 AM CDT) Patholo gist Method Time Signature Color Urine Yellow Colorless, 01/02/2019 Yellow, 11:19 AM Straw, CDT Light Yellow Appearance Urine Clear Clear 01/02/2019 11:19 AM CDT Glucose Urine Negative Negative 01/02/2019 11:19 AM CDT Bilirubin Urine Negative Negative 01/02/2019 11:19 AM CDT Ketones Urine Negative Negative 01/02/2019 11:19 AM CDT Specific [place] 1.020 1.005 - 01/02/2019 Urine 1.030 11:19 AM CDT Blood Urine Negative Negative 01/02/2019 11:19 AM CDT pH Urine 5.0 5.0 - 8.0 01/02/2019 11:19 AM CDT Protein Albumin Negative Negative 01/02/2019 Urine mg/dL 11:19 AM CDT Urobilinogen 0.2 E.U./dL 0.2 01/02/2019 Urine E.U./dL, 11:19 AM 1.0 E.U./dL CDT Nitrite Urine Negative Negative 01/02/2019 11:19 AM CDT Leukocyte Negative Negative 01/02/2019 Esterase Urine 11:19 AM CDT Specimen Anatomical Collection Method Collection Time Receive d Time (Source) Location / / Volume Laterality Urine specimen Non-blood 01/02/2019 11:15 9 (specimen) Collection / AM CDT 11:15 AM CDT Unknown Narrative 01/02/2019 11:19 AM CDT Microscopic not indicated UC not indicated Benjamin Henao MD LAB - URINE ORDERABLES documented in this encounter Visit Diagnoses Diagnosis Incisional hernia, without obstruction o r gangrene Incisional hernia without mention of obs truction or gangrene Dysuria Screening for prostate cancer Special screening for malignant neoplasm of prostate S/P splenectomy Other acquired absence of organ documented in this encounter Care Teams Tire Spotter Relationship Specialty Start Date End Date Benjamin Henao MD PCP - General Internal Medicine 07/24/[address] [place] [id number] documented as of this encounter
--- OUTSIDE RECORDS SUMMARY | 2022-01-01 11:47 | XMS_ITS | Encounter Summary ---
:1945 Author Organization [facility] Address [address] [place] [id number] Care Team Providers Name Role Phone Benjamin Henao MD Primary Care Provider Encounter Details Date Type Department Care Team Description 10/29/2017 [facility] Santos Krishna, [facility] [address] [place] [address] [address] [place] [phone] Social History Tobacco Use Types Packs/Day Years Used Date Former Smoker Quit: 08/27/18 90 Alcohol Use Standard Drinks/Week Comments Yes 0 (1 standard drink = 0.6 oz pure alcoho l) Sex Assigned at Date Recorded Not on file documented as of this encounter Plan of Treatment Not on filedocumented as of this encounter Visit Diagnoses Not on filedocumented in this encounter Care Teams Title Lawyer Relationship Specialty Start Date End Date Benjamin Henao MD PCP - General Internal Medicine 07/24/16 [address] [place] [address] documented as of this encounter
--- OUTSIDE RECORDS SUMMARY | 2022-01-01 11:47 | XMS_ITS | Encounter Summary ---
:1945 Author Organization [facility] Address [address] [place] [phone] Care Team Providers Name Role Phone Benjamin Henao MD Primary Care Provider Reason for Visit Reason Comments Diabetes Encounter Details Date Type Department Care Team Description 06/03/2017 [facility] Santos Krishna Diabe tes [facility] [address] [place] [phone] Social History Tobacco Use Types Packs/Day Years Used Date Former Smoker Quit: 08/27/18 90 Alcohol Use Standard Drinks/Week Comments Yes 0 (1 standard drink = 0.6 oz pure alcoho l) Sex Assigned at Date Recorded Not on file documented as of this encounter Plan of Treatment Not on filedocumented as of this encounter Visit Diagnoses Not on filedocumented in this encounter Care Teams Adventure Therapist Relationship Specialty Start Date End Date Benjamin Henao MD PCP - General Internal Medicine 07/24/16 [address] [place] [address] documented as of this encounter
--- OUTSIDE RECORDS SUMMARY | 2022-01-01 11:47 | XMS_ITS | Encounter Summary ---
:1945 Author Organization [facility] Address [address] [place] [id number] Care Team Providers Name Role Phone Benjamin Henao MD Unavailable Benjamin Henao MD Primary Care Provider Encounter Details Date Type Department Care Team Description 03/11/2019 Records - [facility] HE CONVERSION Provider, Winter jacobsen Social History [...] on filedocumented in this encounter Care Teams Yeast Washer Relationship Specialty Start Date End Date Benjamin Henao MD PCP - General Internal Medicine 07/24/[address] [place] [phone] Benjamin Henao MD Assigned PCP 10/05/[address] [place] [phone] documented as of this encounter
--- OUTSIDE RECORDS SUMMARY | 2022-01-01 11:47 | XMS_ITS | Encounter Summary ---
:1945 Author Organization [facility] Address [address] [place] [address] Care Team Providers Name Role Phone Benjamin Henao MD Primary Care Provider Reason for Visit Reason Comments Diabetes a1c, lipids , fasting Encounter Details Date Type Department Care Team Description 06/30/2019 Office Visit - [facility] Benjamin Henao, H/O gastric bypass; [facility] Jose R [place] Essential hypertension; [place] [facility] [facility] Mixed hyperlipidemia; [address] Type 2 diabetes mellitus with complicati on, without long-term current use of insulin (H); Drive [place], [place] Intestinal malabsorption, un specified type; [place] [address] Unspecified severe protein-calorie malnu trition (H); [address] Encounter for administrative examinations, unspecified; Encounter for adoption services; [phone] Aftercare follo wing surgery for neoplasm; (Fax) Sequelae of pro tein-calorie malnutrition (H) Social History Tobacco Use Types Packs/Day Years [...] Sign Reading Time Taken Comments Blood Pressure 128/70 06/30/2019 9:41 AM CDT Pulse 68 06/30/2019 9:41 AM CDT Temperature - - Respiratory Rate - - Oxygen Saturation - - Inhaled Oxygen Concentration - - Weight 105.2 kg (232 lb) 06/30/2019 9:41 AM CDT Height - - Body Mass Index 35.28 01/07/2019 10:21 AM CDT documented in this encounter Progress Notes Juliano Benjamin Chilo - 06/30/2019 9:40 AM CDT ASSESSMENT and PLAN: #1. Type 2 diabetes, degree of control be determined. Check a hemoglobin A1c, CMP, and lipid profile. I will call him with results and further recommendations. 2. Hypertension, well controlled. CMP as above. 3. Hyperlipidemia, on a atorvastatin. Lipids as above. 4. Status post gastric bypass surgery. He is due for his gastric bypass labs which were ordered below. Unfortunately I had to put a number of extra diagnoses in the chart in order to order these routine and medically appropriate labs #5. Status post splenectomy. He will be due for a repeat Pneumovax in 2020. Problem List Items Addressed This Visit Type 2 diabetes mellitus with complication, without long-term current use of insulin (H) Relevant Orders Glycosylated Hemoglobin A1c Hepatitis C Antibody (Anti-HCV) Comprehensive Metabolic Panel Lipid [place] Mixed hyperlipidemia Hypertension H/O gastric bypass - Primary Relevant Orders Vitamin A (Retinol), Serum or Plasma Folate, Serum Zinc, Serum or Plasma Vitamin D, Total (25-Hydroxy) Parathyroid Hormone Intact HM1(CBC and Differential) Vitamin B12 Ferritin Vitamin B1 (Thiamine), Whole Blood (VIT B1 WB) HM1 (CBC with Diff) Other Visit Diagnoses Intestinal malabsorption, unspecified type Relevant Orders Zinc, Serum or Plasma Unspecified severe protein-calorie malnutrition (H) Relevant Orders Vitamin D, Total (25-Hydroxy) Encounter for administrative examinations, unspecified Relevant Orders HM1(CBC and Differential) HM1 (CBC with Diff) Encounter for adoption services Relevant Orders HM1(CBC and Differential) HM1 (CBC with Diff) Aftercare following surgery for neoplasm Relevant Orders HM1(CBC and Differential) HM1 (CBC with Diff) Sequelae of protein-calorie malnutrition (H) Relevant Orders Ferritin There are no Patient Instructions on file for this visit. There are no discontinued medications. No follow-ups on file. CHIEF COMPLAINT: Chief Complaint Patient presents with ??? Diabetes a1c, lipids , fasting HISTORY OF PRESENT ILLNESS: Faith Adames is a 73 y.o. male presenting to the clinic today for follow- up of some of his chronic medical conditions. He is feeling well today and has no acute complaints. He was taken off of his metformin at his last visit and is due for a hemoglobin A1c. His diabetes is currently diet controlled after his gastric bypass surgery. He is also due for all of his gastric bypass labs as the last time he had these was in March 2018. Blood pressure is under excellent control on losartan monotherapy. He is also on 10 mg of Lipitor for his hyperlipidemia. REVIEW OF SYSTEMS: Pertinent positives noted in [...] 1 tablet 2 (two) times a day. No current facility-administered medications for this visit. TOBACCO USE: Social History Tobacco Use Smoking Status Former Smoker ??? Last attempt to quit: 09/28/1989 ??? Years since quittin.7 Smokeless Tobacco Never Used Tobacco Comment quit 27 yrs ago as of 09/28/2016 VITALS: Vitals: 06/30/19 0941 BP: 128/70 Pulse: 68 Weight: (!) 232 lb (105.2 kg) Wt Readings from Last 3 Encounters: 06/30/19 (!) 232 lb (105.2 kg) 01/07/19 (!) 229 lb (103.9 kg) 12/23/18 (!) 228 lb (103.4 kg) PHYSICAL EXAM: Constitutional: Reveals an alert, pleasant male. HEET: Normocephalic, without obvious abnormality, atraumatic. Neurologic: Normal gait and station Psychologic: Normal affect documented in this encounter Plan of Treatment Not on filedocumented as of this encounter Procedures Procedure Name Priority Date/Time Associated Comments Diagnosis CBC WITH PLATELETS AND Routine 06/30/2019 10:23 R esults for this DIFFERENTIAL AM CDT procedure are i n the results section. 1,25 DIHYDROXYVITAMIN D Routine 06/30/2019 10:23 Results for this AM CDT procedure are i n the results section. ZINC Routine 06/30/2019 10:23 Results for this AM CDT procedure are i n the results section. VITAMIN D DEFICIENCY Routine 06/30/2019 10:23 Res ults for this SCREENING AM CDT procedure are i n the results section. VITAMIN B1 WHOLE BLOOD Routine 06/30/2019 10:23 R esults for this AM CDT procedure are i n the results section. VITAMIN A Routine 06/30/2019 10:23 Results for this AM CDT procedure are i n the results section. PARATHYROID HORMONE Routine 06/30/2019 10:23 Resu lts for this INTACT AM CDT procedure are i n the results section. LIPID PROFILE Routine 06/30/2019 10:23 Results fo r this AM CDT procedure are i n the results section. HEPATITIS C ANTIBODY Routine 06/30/2019 10:23 Res ults for this AM CDT procedure are i n the results section. HEMOGLOBIN A1C Routine 06/30/2019 10:23 Results f or this AM CDT procedure are i n the results section. FOLATE Routine 06/30/2019 10:23 Results for this AM CDT procedure are i n the results section. FERRITIN Routine 06/30/2019 10:23 Results for this AM CDT procedure are i n the results section. COMPREHENSIVE METABOLIC Routine 06/30/2019 10:23 Results for this PANEL AM CDT procedure are i n the results section. VITAMIN B12 Routine 06/30/2019 10:23 Results for this AM CDT procedure are i n the results section. documented in this encounter Results Vitamin D Deficiency (06/30/2019 10:23 AM CDT) [facility] Signature Vitamin D, 39.9 30.0 - 80.0 07/01/2019 Total ng/mL 11:36 AM CDT (25-Hydroxy) Specimen Anatomical Collection Method / Collection Time Recei nona Time (Source) Location / Volume Laterality Blood specimen Venipuncture / 06/30/2019 10:23 020 4:37 (specimen) Unknown AM CDT PM CDT Narrative 07/01/2019 11:36 AM CDT Deficiency <10.0 ng/mL Insufficiency 10.0-29.9 ng/mL Sufficiency 30.0-80.0 ng/mL Toxicity (possible) >100.0 ng/mL Authorizing Provider Result Edel Henao MD LAB - BLOOD ORDERABLES Hemoglobin A1c (06/30/2019 10:23 AM CDT) athologist Signature Hemoglobin A1C 5.0 <=5.6 % 06/30/2019 9:21 PM CDT Comment: Prediabetes: ?? HBA1c ? 5.7 to 6. 4% ? Diabetes: ?HBA1c ?>= 6.5% Patients with Hgb F >5%, total bilirubin >10.0 mg/dL, abnormal red cell turnover, severe renal or hepatic disease or malignancy should not have this A1C method used to diagnose or monitor diabetes. Specimen Anatomical Collection Method / Collection Time Recei nona Time (Source) Location / Volume Laterality Blood specimen Venipuncture / 06/30/2019 10:23 020 8:30 (specimen) Unknown AM CDT PM CDT Authorizing Provider Result Edel Henao MD LAB - BLOOD ORDERABLES Hepatitis C antibody (06/30/2019 10:23 AM CDT) athologist Signature Hepatitis C Negative Negative 07/01/2019 Antibody 8:51 AM CDT Specimen Anatomical Collection Method / Collection Time Recei nona Time (Source) Location / Volume Laterality Blood specimen Venipuncture / 06/30/2019 10:23 020 4:37 (specimen) Unknown AM CDT PM CDT Benjaimn Henao MD LAB - BLOOD ORDERABLES (ABNORMAL) Lipid Profile (06/30/2019 10:23 AM CDT) [facility] Method Time Signature Cholesterol 156 <=199 06/30/2019 mg/dL 5:38 PM CDT Triglycerides 173 (H) <=149 06/30/2019 mg/dL 5:38 PM CDT Direct Measure HDL 43 >=40 06/30/2019 mg/dL 5:38 PM CDT LDL Cholesterol 78 <=129 06/30/2019 Calculated mg/dL 5:38 PM CDT Patient Fasting > Yes 06/30/2019 8hrs? 5:38 PM CDT Specimen Anatomical Collection Method / Collection Time Recei nona Time (Source) Location / Volume Laterality Blood specimen Venipuncture / 06/30/2019 10:23 020 4:35 (specimen) Unknown AM CDT PM CDT Authorizing Provider Result Edel Henao MD LAB - BLOOD ORDERABLES (ABNORMAL) CBC WITH PLATELETS AND DIFFERENTIAL (06/30/2019 10:23 AM CDT) [facility] Method Time Signature WBC 8.6 4.0 - 11.0 06/30/2019 thou/uL 5:04 PM CDT RBC Count 4.17 (L) 4.40 - 06/30/2019 6.20 5:04 PM CDT mill/uL Hemoglobin 12.5 (L) 14.0 - 06/30/2019 18.0 g/dL 5:04 PM CDT Hematocrit 39.9 (L) 40.0 - 06/30/2019 54.0 % 5:04 PM CDT MCV 96 80 - 100 06/30/2019 fL 5:04 PM CDT MCH 30.0 27.0 - 06/30/2019 34.0 pg 5:04 PM CDT MCHC 31.3 (L) 32.0 - 06/30/2019 36.0 g/dL 5:04 PM CDT RDW 13.9 11.0 - 06/30/2019 14.5 % 5:04 PM CDT Platelet Count 238 140 - 440 06/30/2019 thou/uL 5:04 PM CDT Mean Platelet 13.0 (H) 8.5 - 12.5 06/30/2019 Volume fL 5:04 PM CDT % Neutrophils 53 50 - 70 % 06/30/2019 5:04 PM CDT % Lymphocytes 34 20 - 40 % 06/30/2019 5:04 PM CDT % Monocytes 10 2 - 10 % 06/30/2019 5:04 PM CDT % Eosinophils 1 0 - 6 % 06/30/2019 5:04 PM CDT % Basophils 1 0 - 2 % 06/30/2019 5:04 PM CDT Absolute 4.6 2.0 - 7.7 06/30/2019 Neutrophils thou/uL 5:04 PM CDT Absolute 2.9 0.8 - 4.4 06/30/2019 Lymphocytes thou/uL 5:04 PM CDT Absolute 0.9 0.0 - 0.9 06/30/2019 Monocytes thou/uL 5:04 PM CDT Eosinophils 0.1 0.0 - 0.4 06/30/2019 Absolute thou/uL 5:04 PM CDT Absolute 0.1 0.0 - 0.2 06/30/2019 Basophils thou/uL 5:04 PM CDT Specimen Anatomical Collection Method / Collection Time Recei noan Time (Source) Location / Volume Laterality Blood specimen Venipuncture / 06/30/2019 10:23 020 4:34 (specimen) Unknown AM CDT PM CDT Benjamin Henao MD LAB - BLOOD ORDERABLES Vitamin B1 whole blood (06/30/2019 10:23 AM CDT) athologist Signature Vitamin B1 165 70 - 180 07/03/2019 Whole Blood nmol/L 11:41 AM CDT Level Comment: INTERPRETIVE INFORMATION: Vitamin B1, Wh ole Blood This assay measures the concentration of thiamine diphosphate (TDP), the primary active form of vitami n B1. Approximately 90 percent of vitamin B1 present in whole b lood is TDP. Thiamine and thiamine monophosphate, which comprise t he remaining 10 percent, are not measured. Test developed and characteristics deter mined by [facility]. See Compliance Statement B : [employer] [facility]CS Performed by [facility], [address] [place] [address] www.[employer], Karlos Acosta MD, Lab. Director Specimen Anatomical Collection Method / Collection Time Recei nona Time (Source) Location / Volume Laterality Blood specimen Venipuncture / 06/30/2019 10:23 020 4:09 (specimen) Unknown AM CDT AM CDT Benjamin Henao MD LAB - BLOOD ORDERABLES Ferritin (06/30/2019 10:23 AM CDT) athologist Signature Ferritin 27 27 - 300 06/30/2019 5:54 ng/mL PM CDT Specimen Anatomical Collection Method / Collection Time Recei nona Time (Source) Location / Volume Laterality Blood specimen Venipuncture / 06/30/2019 10:23 020 4:35 (specimen) Unknown AM CDT PM CDT Authorizing Provider Result Edel Henao MD LAB - BLOOD ORDERABLES (ABNORMAL) Vitamin B12 (06/30/2019 10:23 AM CDT) athologist Signature Vitamin B12 1,610 (H) 213 - 816 06/30/2019 pg/mL 5:54 PM CDT Specimen Anatomical Collection Method / Collection Time Recei nona Time (Source) Location / Volume Laterality Blood specimen Venipuncture / 06/30/2019 10:23 020 4:37 (specimen) Unknown AM CDT PM CDT Benjamin Henao MD LAB - BLOOD ORDERABLES Parathyroid Hormone Intact (06/30/2019 10:23 AM CDT) athologist Signature Parathyroid 61 10 - 86 06/30/2019 Hormone Intact pg/mL 5:33 PM CDT Specimen Anatomical Collection Method / Collection Time Recei nona Time (Source) Location / Volume Laterality Blood specimen Venipuncture / 06/30/2019 10:23 020 4:37 (specimen) Unknown AM CDT PM CDT Authorizing Provider Result Edel Henao MD LAB - BLOOD ORDERABLES 1,25 Dihydroxyvitamin D (06/30/2019 10:23 AM CDT) athologist Signature Vitamin D, 39.9 30.0 - 07/01/2019 [facility] Total 80.0 ng/mL 11:36 AM CDT JUAN JOSÉ (25-Hydroxy) [facility] Specimen Anatomical Collection Method / Collection Time Recei nona Time (Source) Location / Volume Laterality Blood specimen Venipuncture / 06/30/2019 10:23 020 4:37 (specimen) Unknown AM CDT PM CDT Narrative [facility] - 07/01/2019 11:36 AM CDT Deficiency <10.0 ng/mL Insufficiency 10.0-29.9 ng/mL Sufficiency 30.0-80.0 ng/mL Toxicity (possible) >100.0 ng/mL Benjamin Henao MD LAB - BLOOD ORDERABLES Performing Organization Address [facility] [address]/[facility] Code Phon e Number [facility] [place] [id number] [place] [address] [place] [id number], [facility] Zinc (06/30/2019 10:23 AM CDT) athologist Signature Zinc, 97.6 60.0 - 07/02/2019 Serum/Plasma 120.0 ug/dL 12:27 PM CDT Comment: INTERPRETIVE INFORMATION: Zinc, Serum or Plasma Elevated results may be due to skin or c ollection-related contamination, including the use of a no ncertified metal-free collection/transport tube. If contaminat ion concerns exist due to elevated levels of serum/plasma zinc, co nfirmation with a second specimen collected in a certified metal- free tube is recommended. Circulating zinc concentrations are depe ndent on albumin status and are depressed with malnutrition. ??Z inc may also be lowered with infection, inflammation, stress, or al contraceptives, and . ??Zinc may be elevated with z inc supplementation or fasting. ??Elevated zinc concentrations may interfere with copper absorption. Test developed and characteristics deter mined by [facility]. See Compliance Statement B : [facility] Performed by [facility], [address] [place] [address] www.[employer], Karlos Acosta MD, Lab. Director Specimen Anatomical Collection Method / Collection Time Recei nona Time (Source) Location / Volume Laterality Blood specimen Venipuncture / 06/30/2019 10:23 020 9:56 (specimen) Unknown AM CDT PM CDT Benjamin Henao MD LAB - BLOOD ORDERABLES Folate (06/30/2019 10:23 AM CDT) athologist Signature Folic Acid >20.0 >=3.5 ng/mL 06/30/2019 5:55 PM CDT Specimen Anatomical Collection Method / Collection Time Recei nona Time (Source) Location / Volume Laterality Blood specimen Venipuncture / 06/30/2019 10:23 020 4:35 (specimen) Unknown AM CDT PM CDT Benjamin Henao MD LAB - BLOOD ORDERABLES Vitamin A (06/30/2019 10:23 AM CDT) athologist Signature Vitamin A 0.71 0.30 - 07/02/2019 1.20 mg/L 10:45 AM CDT Vitamin A 0.04 0.00 - 07/02/2019 (Retinyl 0.10 mg/L 10:45 AM CDT Palmitate) Vitamin A Normal 07/02/2019 Interp 10:45 AM CDT Comment: Test developed and characteristics deter mined by [facility]. See Compliance Statement B : [employer] [facility] Performed by [facility], [address] [place] [id number] www.[facility] [employer] [facility], Karlos Acosta MD, Lab. Director Specimen Anatomical Collection Method / Collection Time Recei nona Time (Source) Location / Volume Laterality Blood specimen Venipuncture / 06/30/2019 10:23 020 3:26 (specimen) Unknown AM CDT AM CDT Authorizing Provider Result Edel Henao MD LAB - BLOOD ORDERABLES (ABNORMAL) Comprehensive metabolic panel (06/30/2019 10:23 AM CDT) athologist Signature Sodium 138 136 - 145 06/30/2019 mmol/L 5:38 PM CDT Potassium 4.4 3.5 - 5.0 06/30/2019 mmol/L 5:38 PM CDT Chloride 105 98 - 107 06/30/2019 mmol/L 5:38 PM CDT Carbon Dioxide 23 22 - 31 06/30/2019 (CO2) mmol/L 5:38 PM CDT Anion Gap 10 5 - 18 06/30/2019 mmol/L 5:38 PM CDT Glucose 122 70 - 125 06/30/2019 mg/dL 5:38 PM CDT Urea Nitrogen 25 8 - 28 06/30/2019 mg/dL 5:38 PM CDT Creatinine 1.21 0.70 - 06/30/2019 1.30 mg/dL 5:38 PM CDT GFR Estimate If >60 >60 06/30/2019 Black mL/min/1.7 5:38 PM CDT 3m2 GFR Estimate 59 (L) >60 06/30/2019 mL/min/1.7 5:38 PM CDT 3m2 Bilirubin Total 0.8 0.0 - 1.0 06/30/2019 mg/dL 5:38 PM CDT Calcium 9.6 8.5 - 10.5 06/30/2019 mg/dL 5:38 PM CDT Protein Total 7.0 6.0 - 8.0 06/30/2019 g/dL 5:38 PM CDT Albumin 4.1 3.5 - 5.0 06/30/2019 g/dL 5:38 PM CDT Alkaline 97 45 - 120 06/30/2019 Phosphatase U/L 5:38 PM CDT AST 24 0 - 40 U/L 06/30/2019 5:38 PM CDT ALT 21 0 - 45 U/L 06/30/2019 5:38 PM CDT Specimen Anatomical Collection Method / Collection Time Recei nona Time (Source) Location / Volume Laterality Blood specimen Venipuncture / 06/30/2019 10:23 020 4:35 (specimen) Unknown AM CDT PM CDT Narrative 06/30/2019 5:38 PM CDT Fasting Glucose reference range is 70-99 mg/dL per [employer] (ADA) addie rojas. Benjamin Henao MD LAB - BLOOD ORDERABLES documented in this encounter Visit Diagnoses Diagnosis H/O gastric bypass Bariatric surgery status Essential hypertension Unspecified essential hypertension Mixed hyperlipidemia Type 2 diabetes mellitus with complicati on, without long-term current use of insulin (H) Intestinal malabsorption, unspecified ty pe Unspecified severe protein-calorie malnu trition (H) Encounter for administrative examination s, unspecified Encounter for adoption services Encounters for other specified administr ative purpose Aftercare following surgery for neoplasm Sequelae of protein-calorie malnutrition (H) Unspecified protein-calorie malnutrition documented in this encounter Care Teams Facilities Management Executive Relationship Specialty Start Date End Date Benjamin Henao MD PCP - General Internal Medicine 07/24/16 [address] [place] [address] documented as of this encounter
--- OUTSIDE RECORDS SUMMARY | 2022-01-01 11:47 | XMS_ITS | Encounter Summary ---
:1945 Author Organization [facility] Address [address] [place] [address] Care Team Providers Name Role Phone Benjamin Henao MD Primary Care Provider Encounter Details Date Type Department Care Team Description 05/18/2019 Records - [facility] Provider, Histo rical Health Information Management [address] [facility] [address] [place] [address] Social History Tobacco Use Types Packs/Day Years Used Date Former Smoker Quit: 08/27/18 90 Alcohol Use Standard Drinks/Week Comments Yes 0 (1 standard drink = 0.6 oz pure alcoho l) Sex Assigned at Date Recorded Not on file documented as of this encounter Plan of Treatment Not on filedocumented as of this encounter Procedures Procedure Name Priority Date/Time Associated Diagnosis Comme nts EYE EXAM - HIM SCAN Routine 03/11/2019 Results for this procedure are i n the results section . documented in this encounter Results Eye Exam - HIM Scan (03/11/2019) P athologist Signature RETINOPATHY NEGATIVE Specimen (Source) Anatomical Location Collection Method / Collectio n Time Received Time / Laterality Volume Narrative Tiffani Reid - 03/11/2019 This order was created through External Result Entry [facility] EXTERNAL Historical Provider OTHER documented in this encounter Visit Diagnoses Not on filedocumented in this encounter Care Teams Boiler Water Tester Relationship Specialty Start Date End Date Benjamin Henao MD PCP - General Internal Medicine 07/24/16 [address] [place] [address] documented as of this encounter
--- OUTSIDE RECORDS SUMMARY | 2022-01-01 11:47 | XMS_ITS | Encounter Summary ---
:1945 Author Organization [facility] [place] Address [address] [place] [address] Care Team Providers Name Role Phone Benjamin Henao MD Primary Care Provider Encounter Details Date Type Department Care Team Description 05/14/2017 Office Visit - [facility] Naresh Grant MD Type 2 diabetes mellitus without complic ation, unspecified residential insulin use status (H); [facility] and [facility] Obstructive sleep apnea; [facility] [place], [place] S/P gastric bypass; [address] [place] [address] Exchange [address] Postoperative wound infection, [facility] [address] [place], [place] (Work) [phone] Social History Tobacco Use Types Packs/Day Years [...] - Inhaled Oxygen Concentration - - Weight 129.3 kg (285 lb) 05/14/2017 10:17 AM LANDFILL GAS COLLECTION SYSTEM OPERATOR Height 172.7 cm (5' 8) 05/14/2017 10:17 AM LANDFILL GAS COLLECTION SYSTEM OPERATOR Body Mass Index 43.33 05/14/2017 10:17 AM LANDFILL GAS COLLECTION SYSTEM OPERATOR documented in this encounter Progress Notes Lorna Krishnamurthy RN - 05/14/2017 10:15 AM CST He has had one episode of throwing up on Saturday so he went back to the full liquids for Saturdayand . His infected incision has been draining copious amounts of yellow drainage that was thick, but it seems to be better today and thinner. He had to change the dressing several times (5-6+) and changed his sheets at night twice because of it. Fasting Blood sugars today and yesterday 120. Hehas been getting around 90 oz of fluids in daily. He has been getting a minimum of 30 gm bottle of protein shake in daily plus his other foods. He had a hard bout of constipation on Saturday but it has been much better since he had the first bowl movement and he has been taking miralax daily. He still has the katya on the incision. His breathing has been better but he still feels short of breath and low energy. Lorna Krishnamurthy RN FILL GAS COLLECTION SYSTEM OPERATOR Naresh Grant MD - 05/14/2017 10:15 AM CST HPI: Pt is here for follow up of a attempted laparoscopic conversion to an open Falguni-en-Y gastric bypass. 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 She was discharged on post op day #3 but came back to the emergency room postop day #5 complaining of shortness of breath. He underwent a PE run as well as an abdominal CT scan, all these were negative. His hemoglobin was noted franklyn 9.3 at that time. He was discharged to home. He did follow up with at the end of lastweek and was noted to have some induration around his gastrostomy tube site. He was started on Levaquin 500 mg daily for 5 days which completed yesterday. States he has been having copious drainage from the gastrostomy tube site but this has slowed down in the last 24 hours. He states had been runningsome low-grade fevers but that is improved as well. He is eating without difficulty. He is having bowel movements. He states he is urinating normal volumes. He is still having some shortness of breath with activity but this seems to be gradually improving as well. His blood sugars have been running about 120 and he is on 20 units of Lantus insulin. Current Outpatient Prescriptions Medication Sig Dispense Refill ??? aspirin 81 mg chewable tablet Chew 81 mg daily. ??? atenolol (TENORMIN) 50 MG tablet Take 50 mg by mouth daily. As directed. ??? atorvastatin (LIPITOR) 40 MG tablet Take 40 mg by mouth at bedtime. ??? cetirizine (ZYRTEC) 10 mg cap Take 1 tablet by mouth daily. ??? CONTOUR TEST STRIPS strips ??? cyanocobalamin, vitamin B-12, 1,[address] 1,000 mcg under the tongue daily. ??? folic acid (FOLVITE) 1 MG tablet Take 1 mg by mouth daily. As directed. ??? insulin glargine (LANTUS SOLOSTAR) 100 unit/mL (3 mL) pen Inject 20 Units under the skin at bedtime. Or as directed. 5 adj dose pen 0 ??? losartan (COZAAR) 50 MG tablet Take 50 mg by mouth daily. ??? MICROLET LANCET ??? NOVOLOG 100 unit/mL injection Check blood sugar three (3) times daily. 11.9 Type 2 without complications Microlet Color Lancets (100s) - dispense 1, refill PRN for 1 year BD Ultra-fine 6 mm 31G 1 mL syringe - [facility] [id number] - dispense 1 case, refill PRN for 1 year 10 mL PRN ??? omeprazole (PRILOSEC) 20 MG capsule Take 20 mg by mouth daily. ??? pediatric multivitamin (FLINTSTONES) Chew chewable tablet Chew 1 tablet 2 (two) times a day. ??? traMADol (ULTRAM) 50 mg tablet Take 2 tablets (100 mg total) by mouth every 6 (six) hours. 30 tablet 0 ??? ursodiol (ACTIGALL) 300 mg capsule Take 1 capsule (300 mg total) by mouth 2 (two) times a day. Start 2 wks after surgery. Do not open capsule. Swallow whole with warm water. 180 capsule 1 ??? cholecalciferol, vitamin D3, (VITAMIN D3) 5,000 unit Tab Take 1 tablet (5,000 Units total) by mouth daily. 100 tablet 3 ??? levoFLOXacin (LEVAQUIN) 500 MG tablet Take 1 tablet (500 mg total) by mouth daily. 3 tablet 0 ??? sildenafil (VIAGRA) 100 MG tablet Take 1 tablet (100 mg total) by mouth as needed for erectile dysfunction. 28 tablet 3 No current facility-administered medications for this visit. BP 135/80 Pulse 71 Temp 97.9 ??F (36.6 ??C) Resp 16 Ht 5' 8 (1.727 m) Wt (!) 285 lb (129.3 kg) BMI 43.33 kg/m2 Wt Readings from Last 3 Encounters: 05/14/17 (!) 285 lb (129.3 kg) 05/06/17 (!) 299 lb (135.6 kg) 05/03/17 (!) 303 lb 6.4 oz (137.6 kg) Body mass index is 43.33 kg/(m^2). EXAM: GENERAL:Appears well ABDOMEN: Incision looks good, katya are in place. He does have some firmness around his gastrostomy tube site and I was able to express a little bit of purulent fluid. There is no erythema around thegastrostomy tube site. I did probe this with a sterile applicator and this followed the gastrostomy tube tract but did not have any undermining. 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 He has some induration around his gastrostomy tube site he had been draining quite a bit from this but this seems better. I will continue his Levaquin for another 3 days just to be on the safe side. My expectation is that the gastrostomy tube site will continue to seal and be a nonissue. Will get a CBC to see where his hemoglobin is as well as his white count. Given the splenectomy would expect this to be somewhat elevated. We will plan on seeing him back here in 1 week. Naresh Grant MD [facility] Department of Surgery FILL GAS COLLECTION SYSTEM OPERATOR documented in this encounter Plan of Treatment Not on filedocumented as of this encounter Procedures Procedure Name Priority Date/Time Associated Comments Diagnosis CBC WITH PLATELETS Routine 05/14/2017 11:09 Resul ts for this AND DIFFERENTIAL AM LANDFILL GAS COLLECTION SYSTEM OPERATOR procedure a re in the results section. documented in this encounter Results (ABNORMAL) CBC WITH PLATELETS AND DIFFERENTIAL (05/14/2017 11:09 AM LANDFILL GAS COLLECTION SYSTEM OPERATOR) [facility] gist Method Time Signature WBC 14.3 (H) 4.0 - 05/14/2017 HEALTH 11.0 12:07 PM LANDFILL GAS COLLECTION SYSTEM OPERATOR [facility] RBC Count 3.90 (L) 4.40 - 05/14/2017 HEALTH 6.20 12:07 PM LANDFILL GAS COLLECTION SYSTEM OPERATOR [facility] Hemoglobin 10.6 (L) 14.0 - 05/14/2017 [facility] 18.0 g/dL 12:07 PM [facility]ITALGrovacNEWYORK[facility]PITALAll-ScrapS LABORATORY Hematocrit 33.4 (L) 40.0 - 05/14/2017 [facility] 54.0 % 12:07 PM LANDFILL GAS COLLECTION SYSTEM OPERATOR [facility] ZnodeS LAB[facility]AT[facility] MCV 86 80 - 100 05/14/2017 [facility] fL 12:07 PM LANDFILL GAS COLLECTION SYSTEM OPERATOR [facility]IAThryveNEWYORK[facility] MCH 27.2 27.0 - 05/14/2017 [facility] 34.0 pg 12:07 PM LANDFILL GAS COLLECTION SYSTEM OPERATOR ARCADIAThryveNEWYORK-PRESBYTERIAN [facility]OSPITALAll-ScrapS LABORATORY MCHC 31.7 (L) 32.0 - 05/14/2017 [facility] 36.0 g/dL 12:07 PM [facility]ITALGrovacR[facility] RDW 14.8 (H) 11.0 - 05/14/2017 [facility] 14.5 % 12:07 PM LANDFILL GAS COLLECTION SYSTEM OPERATOR [place] Z[employer]S LABORATORY Platelet Count 754 (H) 140 - 440 05/14/2017 [facility] thou/uL 12:07 PM LANDFILL GAS COLLECTION SYSTEM OPERATOR [employer]'S LABORATORY Mean Platelet 10.0 8.5 - 05/14/2017 [facility] Volume 12.5 fL 12:07 PM LANDFILL GAS COLLECTION SYSTEM OPERATOR DemohourS LABORATORY % Neutrophils 72 (H) 50 - 70 % 05/14/2017 HEALTH 12:07 PM LANDFILL GAS COLLECTION SYSTEM OPERATOR [place] [employer] LABORATORY % Lymphocytes 17 (L) 20 - 40 % 05/14/2017 [facility] 12:07 PM [facility] % Monocytes 9 2 - 10 % 05/14/2017 [facility] 12:07 PM [facility] % Eosinophils 0 0 - 6 % 05/14/2017 [facility] 12:07 PM [facility] % Basophils 1 0 - 2 % 05/14/2017 [facility] 12:07 PM [facility] Absolute 10.2 (H) 2.0 - 7.7 05/14/2017 [facility] Neutrophils thou/uL 12:07 PM LANDFILL GAS COLLECTION SYSTEM OPERATOR [facility] Absolute 2.5 0.8 - 4.4 05/14/2017 [facility] Lymphocytes thou/uL 12:07 PM [facility] Absolute 1.3 (H) 0.0 - 0.9 05/14/2017 [facility] Monocytes thou/uL 12:07 PM [facility] Eosinophils 0.0 0.0 - 0.4 05/14/2017 [facility] Absolute thou/uL 12:07 PM LANDFILL GAS COLLECTION SYSTEM OPERATOR [facility] Absolute 0.2 0.0 - 0.2 05/14/2017 [facility] Basophils thou/uL 12:07 PM LANDFILL GAS COLLECTION SYSTEM OPERATOR [facility] Specimen Anatomical Collection Method Collection Time Receive d Time (Source) Location / / Volume Laterality Blood specimen 05/14/2017 11:09 8 (specimen) AM LANDFILL GAS COLLECTION SYSTEM OPERATOR 11:48 AM LANDFILL GAS COLLECTION SYSTEM OPERATOR Naresh Grant MD LAB - BLOOD ORDERABLES Performing Organization Address City/State/ZIP Code Phon e Number [place] [address] [address] [facility] documented in this encounter Visit Diagnoses Diagnosis Type 2 diabetes mellitus without complic ation, unspecified residential insulin use status Obstructive sleep apnea Obstructive sleep apnea (adult) (pediatr ic) S/P gastric bypass Bariatric surgery status Postoperative wound infection, subsequen t encounter documented in this encounter Care Teams Electrical Engineering Drafting Officer Relationship Specialty Start Date End Date Benjamin Henao MD PCP - General Internal Medicine 07/24/[address] [place] [id number] documented as of this encounter
--- OUTSIDE RECORDS SUMMARY | 2022-01-01 11:47 | XMS_ITS | Encounter Summary ---
:1945 Author Organization [facility] Address [address] [place] [address] Care Team Providers Name Role Phone Benjamin Henao MD Primary Care Provider Reason for Visit Reason Comments Dysuria x5 days - burning, frequency , frequency Encounter Details Date Type Department Care Team Description 12/23/2018 Office Visit - [facility] Benjamin Henao, Dysu kathleen; [facility] Jose R FORTUNE Low vitamin D level [facility] [address] [facility] [address] [place] [phone] Social History Tobacco Use Types Packs/Day Years Used Date Former Smoker Quit: 08/27/18 90 Alcohol Use Standard Drinks/Week Comments Yes 0 (1 standard drink = 0.6 oz pure alcoho l) Sex Assigned at Date Recorded Not on file documented as of this encounter Last Filed Vital Signs Vital Sign Reading Time Taken Comments Blood Pressure 134/66 12/23/2018 12:44 PM CDT Pulse 68 12/23/2018 12:44 PM CDT Temperature - - Respiratory Rate - - Oxygen Saturation - - Inhaled Oxygen Concentration - - Weight 103.4 kg (228 lb) 12/23/2018 12:44 PM CDT Height - - Body Mass Index 34.67 06/05/2018 10:30 AM RADIAL ROUTER OPERATOR documented in this encounter Progress Notes Benjamin Henao Chilo - 12/23/2018 12:40 PM CDT ASSESSMENT and PLAN: #1. Cystitis along with microscopic hematuria. I am going to treat him with 10 days of Cipro. Follow-up as needed. He will get a repeat urinalysis after his course of antibiotics to confirm resolution of the hematuria. If it does not resolve we will likely need to refer him to urology. 2. Type 2 diabetes, very well controlled. He is going to stop his metformin and we will recheck things in 6 months. 3. Hypertension, well controlled. Problem List Items Addressed This Visit None Visit Diagnoses Dysuria - Primary Relevant Medications ciprofloxacin HCl (CIPRO) 500 MG tablet Other Relevant Orders Urinalysis-UC if Indicated (Completed) Urinalysis Macro & Micro Low vitamin D level Relevant Medications cyanocobalamin, vitamin B-12, 1,000 mcg [address] cholecalciferol, vitamin D3, (VITAMIN D3) 5,000 unit Tab There are no Patient Instructions on file for this visit. Medications Discontinued During This Encounter Medication Reason ??? metFORMIN (GLUCOPHAGE) 500 MG tablet ??? cyanocobalamin, vitamin B-12, 1,000 mcg Subl Reorder ??? cholecalciferol, vitamin D3, (VITAMIN D3) 5,000 unit Tab Reorder No follow-ups on file. CHIEF COMPLAINT: Chief Complaint Patient presents with ??? Dysuria x5 days - burning, frequency, frequency HISTORY OF PRESENT ILLNESS: Faith Adames is a 73 y.o. male presenting to the clinic today for evaluation of dysuria and increased urinary frequency. He states that this is been going on for the last 4 to 5 days. He is alsobeen having some increased urgency to go, to the point where he is not able to make it to the bathroom at times. He denies any blood in the urine. He states that at the end of his urine stream he will have some pain. No abdominal pain. No fevers. He is otherwise doing well. REVIEW OF SYSTEMS: Pertinent positives noted in [...] 3 ??? CONTOUR TEST STRIPS strips ??? doxepin (SINEQUAN) 10 MG capsule Take [...] needed for erectile dysfunction. 30 tablet 3 ??? ciprofloxacin HCl (CIPRO) 500 MG tablet Take 1 tablet (500 mg total) by mouth 2 (two) times a day for 10 days. 20 tablet 0 ??? cyanocobalamin, vitamin B-12, 1,[address] 1 tablet (1,000 mcg total) under the tongue every other day. 45 tablet 3 No current facility-administered medications for this visit. TOBACCO USE: Social History Tobacco Use Smoking Status Former Smoker ??? Last attempt to quit: 09/28/1989 ??? Years since quittin.2 Smokeless Tobacco Never Used Tobacco Comment quit 27 yrs ago as of 09/28/2016 VITALS: Vitals: 12/23/18 1244 BP: 134/66 Pulse: 68 Weight: (!) 228 lb (103.4 kg) Wt Readings from Last 3 Encounters: 12/23/18 (!) 228 lb (103.4 kg) 11/21/18 (!) 226 lb (102.5 kg) 06/05/18 (!) 231 lb 3.2 oz (104.9 kg) PHYSICAL EXAM: Constitutional: Reveals an alert, pleasant male. HEET: Normocephalic, without obvious abnormality, atraumatic. Neurologic: Normal gait and station Psychologic: Normal affect documented in this encounter Plan of Treatment Not on filedocumented as of this encounter Procedures Procedure Name Priority Date/Time Associated Comments Diagnosis ROUTINE UA WITH Routine 12/23/2018 12:50 Results for this MICROSCOPIC REFLEX TO PM CDT proced ure are in CULTURE the results section. documented in this encounter Results (ABNORMAL) UA with Microscopic reflex to Culture (12/23/2018 12:50 PM CDT) [facility] Method Time Signature Color Urine Yellow Colorless, 12/23/2018 [facility] Yellow, 1:04 PM CDT [facility] Straw, [facility] Light LABORATORY Yellow Appearance Urine Clear Clear 12/23/2018 HEALTH 1:04 PM T [facility] LABOR[facility]ORY Glucose Urine Negative Negative 12/23/2018 HEALTH 1:04 PM T [facility] LAB[facility] Bilirubin Urine Negative Negative 12/23/2018 [facility] 1:04 PM T [facility] Ketones Urine Negative Negative 12/23/2018 HEALTH 1:[address] [facility] LABORATORY Specific [place] 1.015 1.005 - 12/23/2018 [facility] Urine 1.030 1:[address] [facility] Blood Urine Large (A) Negative 12/23/2018 HEALTH 1:[address] [facility] pH Urine 5.0 5.0 - 8.0 12/23/2018 [facility] 1:04 PM T [facility] Protein Albumin Negative Negative 12/23/2018 [facility] Urine mg/dL 1:[address] [facility] LAB[facility]ORY Urobilinogen 0.2 E.U./dL 0.2 12/23/2018 [facility] Urine E.U./dL, 1:04 PM [facility] 1.0 E.U./dL [facility] LABORATORY Nitrite Urine Negative Negative 12/23/2018 HEALTH 1:[address] [facility]ORY Leukocyte Negative Negative 12/23/2018 [facility] Esterase Urine 1:[address] [facility] Bacteria Urine None Seen None Seen 12/23/2018 [facility] hpf 1:[address] [facility] RBC Urine 50-100 (A) None Seen, 12/23/2018 [facility] 0-2 hpf 1:04 PM T [facility] WBC Urine 0-5 None Seen, 12/23/2018 [facility] 0-5 hpf 1:04 PM CDT [facility] Squamous 5-10 (A) None Seen, 12/23/2018 [facility]ALTH Epithelials 0-5 lpf 1:04 PM CDT [facility]3] LABORATORY Specimen Anatomical Collection Method Collection Time Receive d Time (Source) Location / / Volume Laterality Urine specimen Non-blood 12/23/2018 12:50 9 (specimen) Collection / PM CDT 12:50 PM CDT Unknown Narrative [facility] - 12/23/2018 1:04 PM CDT UC not indicated Benjamin Henao MD LAB - URINE ORDERABLES Performing Organization Address City/State/ZIP Code Phon e Number [facility] [place] [address] [place] [address] [address] [place] [address] documented in this encounter Visit Diagnoses Diagnosis Dysuria Low vitamin D level documented in this encounter Care Teams Outside Collector Relationship Specialty Start Date End Date Benjamin Henao MD PCP - General Internal Medicine 07/24/[address] [place] [id number] documented as of this encounter
--- OUTSIDE RECORDS SUMMARY | 2022-01-01 11:47 | XMS_ITS | Encounter Summary ---
:1945 Author Organization [place] Address [address] [place] [address] Care Team Providers Name Role Phone Benjamin Henao MD Primary Care Provider Reason for Visit Reason Comments Nutrition Counseling Encounter Details Date Type Department Care Team Description 01/08/2018 Office Visit - [facility] Provider, H/O preeti sarah bypass; [facility] Surgery Clinic and Historical Obesity ( BMI 30-39.9); Bariatrics Care Dietary coun seling; Lolita Type 2 diabetes mellitus wit hout complication, unspecified fci insulin use status (H) [address] [facility] [address] [place] [address] Social History Tobacco Use Types Packs/Day [...] - Inhaled Oxygen Concentration - - Weight 100.2 kg (221 lb) 01/08/2018 10:00 AM CDT Height 172.7 cm (5' 8) 01/08/2018 10:00 AM CDT Body Mass Index 33.6 01/08/2018 10:00 AM CDT documented in this encounter Progress Notes Historical Provider - 01/08/2018 10:30 AM CDT Post-op Surgical Weight Loss Diet Evaluation Assessment: Pt presents for 9-months post-op RD visit, s/p RNY on 05/01/[address] Grant. Today we reviewed current eating habits and level of physical activity, and instructed on the changes that are required for successful bariatric outcomes. Patient Progress: Pt is continuing to take vitamins, eat enough protein and exercise daily -more energy and loves exercise Pt's Initial Weight: 319.6 lbs Weight: 221 lb (100.2 kg) Weight loss from initial: 98.6 % Weight loss: 30.85 % Body mass index is 33.6 kg/(m^2). Concerns: Pt snacking frequently throughout the day - walking and using kcals burned and think he needs to eat that amount(discussed). Talked through portions and snacks with pt and . Pt is vomitting frequently due to eating too fast and sometimes too much - discussed the importance of continued habits -fruit after every meal - discussed and 2 snacks in the afternoon and evening; stalling weight loss and could be a reason for weight gain -current exercise regimen with eating habits = maintenance vs weight loss Diabetes Testing Blood Sugars: 100-120 5.7% Vitamins Multi Vit with Iron: yes Calcium Citrate: yes B12: yes; 2X/week 2500 D3: yes Do you experience hunger? Yes Nausea: no Vomiting: yes - eating too fast or too much Diarrhea: no Constipation: no Hair loss:no -3 fruits/day after every meal Diet Recall/Time: Protein shake (30g) Breakfast: 2eggs w/ toast (14g) Am Snack: protein drink (20g) Lunch: Pro/Veg/CHO (1cup) Pm snack:fruit OR pop corners OR cheese and bread Dinner: Pro/CHO/Veg HS Snack: above Proteins/Veg/Fruits/CHO (NOT well tolerated): broccoli Estimated protein intake: 80plus oz grams Estimated portion size per meals: 1 cup/meal plus Incorporation of vegetables, fruits, carbohydrates into diet/meals using Bariatric Plate Method The patient and I discussed the importance of including lean/low fat protein at each meal, includinga vegetable/fruit, and limiting carbohydrate intake to less than 25% of plate volume. Always keepingwithin approved perimeters of post op meal portion sizes according to 9months post op guidelines. Meals per week away from home: Recommended limiting eating out to no more than 2x/week. Meal Duration:10-15minutes Encouraged slowing meal times down, 20-30 minutes, chewing to applesauce consistency. Fluid-meal separation: Fluids are 30min before and 30 minutes after meals. The patient and I reviewed the anatomy of the bypass and why fluids from a meal is so important. Fluid Intake Water: 80oz Caffeine: 1 cup 2-3X/week Alcohol: none Carbonation: none Milk: none Juice: none Discussed the importance of adequate hydration after surgery and the goal of 64+ oz of fluid daily. The patient understands the importance of avoiding all carbonated, caffeinated, and sweetened drinks; and instead choosing 64oz plain water. Exercise Walking 6miles/day Pt's understands that 30-60 minutes of daily activity is an important part of bariatric surgery success. Encouraged pt to incorporate strength training exercise along with cardiovascular exercise as well, most days of the week. PES statement: 1. (NC-1.4) Altered GI Function related to Alteration in gastrointestinal tract structure and/or function/ Decreased functional length of the GI tract as evidenced by Weight loss of 30.85% initial bodyweight; Gastric bypass surgery Intervention Discussion 1. Discussed 9-months Post-Op Nutritional Guidelines for RNY 2. Recommended to consume 15-20gm protein at 3 meals daily, along with protein supplement/planned protein containing snack of 15-30gm protein, to reach goal of 60-80 gm protein daily. 3. Educated on post-op vitamin regimen: Multi Vit + iron 2x/day, calcium citrate 400-600 mg 2x/day, 4718-6524 mcg of Sublingual B-12 daily, and 5000 IU Vitamin D3 daily (MVI and calcium can be taken atthe same time BID) 4. Reviewed lean protein sources 5. Bariatric Plate Method- including lean/low fat protein at each meal, including a vegetable/fruit,and limiting carbohydrate intake to less than 25% of plate volume. Approved perimeters of post op meal portion sizes according to 9 months post op guidelines. Instructions 1. Include [...] 2x/day, calcium citrate 400- 600 mg 2x/day, 0003-8387 mcg of Sublingual B-12 daily, and 5000 [...] without distractions of tv/email/cell phone. 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
--- OUTSIDE RECORDS SUMMARY | 2022-01-01 11:47 | XMS_ITS | Encounter Summary ---
:1945 Author Organization [place] Address [address] [place] [address] Care Team Providers Name Role Phone Benjamin Henao MD Primary Care Provider Encounter Details Date Type Department Care Team Description 04/17/2018 Communication - [facility] Santos Krishna, [facility] Surgery Clinic and Bariatrics Care [address] [place] [phone] [place] [address] [phone] (Work) [phone] Social History Tobacco Use Types Packs/Day Years Used Date Former Smoker Quit: 08/27/18 90 Alcohol Use Standard Drinks/Week Comments Yes 0 (1 standard drink = 0.6 oz pure alcoho l) Sex Assigned at Date Recorded Not on file documented as of this encounter Plan of Treatment Not on filedocumented as of this encounter Visit Diagnoses Not on filedocumented in this encounter Care Teams Trackless Trolley Driver Relationship Specialty Start Date End Date Benjamin Henao MD PCP - General Internal Medicine 07/24/16 [address] [place] [address] documented as of this encounter
--- OUTSIDE RECORDS SUMMARY | 2022-01-01 11:47 | XMS_ITS | Encounter Summary ---
:1945 Author Organization [place] Address [address] [place] [address] Care Team Providers Name Role Phone Benjamin Henao MD Primary Care Provider Reason for Visit Reason Comments Hernia Incisiona Hernia Encounter Details Date Type Department Care Team Description 01/07/2019 Office Visit - M [facility] Donato Raines Incisjean onal hernia, [facility] and DO Eliud without obstruction Bariatrics Care [address] [place] [address] [phone] Social History Tobacco Use Types Packs/Day Years Used Date Former Smoker Quit: 08/27/18 90 Alcohol Use Standard Drinks/Week Comments Yes 0 (1 standard drink = 0.6 oz pure alcoho l) Sex Assigned at Date Recorded Not on file documented as of this encounter Last Filed Vital Signs Vital Sign Reading Time Taken Comments Blood Pressure 140/81 01/07/2019 10:21 AM CDT Pulse - - Temperature - - Respiratory Rate 16 01/07/2019 10:21 AM CDT Oxygen Saturation 98% 01/07/2019 10:21 AM CDT Inhaled Oxygen Concentration - - Weight 103.9 kg (229 lb) 01/07/2019 10:21 AM CDT Height 172.7 cm (5' 8) 01/07/2019 10:21 AM CDT Body Mass Index 34.82 01/07/2019 10:21 AM CDT documented in this encounter Progress Notes Donato Raines, DO - 01/07/2019 10:10 AM CDT HPI: Faith Adames is a 73 y.o. male who was referred to me by Benjamin Henao MD for a ventral hernia. He presents with complaints of a bulge in the mid abdominal region correlating with his previous laparotomy incision with no discomfort. He has noted this for the past several months states it is not enlarging. He denies any nausea, vomiting, fevers, chills, bloody bowel movements or any other complaints at this time. Previous surgeries include laparoscopic gastric bypass with subsequent exploratory laparotomy and splenectomy Allergies:Cat dander and Lisinopril No past medical history on file.-Reviewed Past Surgical History: Procedure Laterality Date ??? AR LAP GASTRIC BYPASS/ELIZABETH-EN-Y N/A 05/01/2017 Procedure: LAPAROSCOPIC ELIZABETH-EN-Y BASTRIC BYPASS CONVERTED TO OPEN; SPLENECTOMY; Surgeon: Naresh Grant MD; Location: [facility]; Service: General ??? SPLENECTOMY as a result of complications from gastric bypass. CURRENT MEDS: Current Outpatient Medications Medication Sig Dispense Refill [...] No current facility-administered medications for this visit. Family History Problem Relation Age of Onset ??? Arthritis Mother ??? Obesity Father ??? Diabetes Father ??? Cardiovascular Father ??? Hyperlipidemia Father ??? Heart attack Father ??? Heart disease Father ??? Obesity Sister ??? Diabetes Sister ??? Hyperlipidemia Sister ??? Hypertension Sister ??? Heart attack Brother ??? Diabetes Brother ??? Hyperlipidemia Brother ??? Hypertension Brother ??? Heart disease Brother ??? Obesity Sister ??? Diabetes Sister ??? Cardiovascular Sister ??? Hyperlipidemia Sister ??? Hypertension Sister ??? Obesity Sister ??? Diabetes Sister ??? Hyperlipidemia Sister ??? Hypertension Sister ??? Obesity Sister ??? Diabetes Sister ??? Cardiovascular Sister ??? Hyperlipidemia Sister ??? Hypertension Sister ??? Obesity Sister ??? Diabetes Sister ??? Hyperlipidemia Sister ??? Hypertension Sister ??? Heart attack Brother ??? Diabetes Brother ??? Hyperlipidemia Brother ??? Hypertension Brother ??? Heart disease Brother ??? Cancer Brother gastric ca ??? Diabetes Brother ??? Hyperlipidemia Brother ??? Hypertension Brother ??? Heart disease Brother reports that he quit smoking about 29 years ago. He has never used smokeless tobacco. He reports that he does not drink alcohol or use drugs. Review of Systems - The 12 point review of systems is within normal limits except for as mentioned above in the HPI. General ROS: No complaints or constitutional symptoms Ophthalmic ROS: No complaints of visual changes Skin: No complaints or symptoms Endocrine: No complaints or symptoms Hematologic/Lymphatic: No symptoms or complaints Psychiatric: No symptoms or complaints Respiratory ROS: no cough, shortness of breath, or wheezing Cardiovascular ROS: no chest pain or dyspnea on exertion Gastrointestinal ROS: As per HPI Genito-Urinary ROS: no dysuria, trouble voiding, or hematuria Musculoskeletal ROS: no joint or muscle pain Neurological ROS: no TIA or stroke symptoms BP 140/81 Resp 16 Ht 5' 8 (1.727 m) Wt (!) 229 lb (103.9 kg) SpO2 98% BMI 34.82 kg/m?? Body mass index is 34.82 kg/m??. EXAM: GENERAL: Well developed male HEENT: Extra ocular muscles intact, pupils are round and reactive, sclera is anicteric, NECK: No obvious masses or deformities CARDIAC: RRR w/out murmur CHEST/LUNG: Clear to auscultation bilaterally ABDOMEN: Small 1 cm incisional hernia with reducible adipose tissue, nontender, well-healed midline incision NEURO: No obvious defects noted. EXT: No edema, no obvious deformities or any other abnormalities Assessment/Plan: Faith Adames is a 73 y.o. male with a very small incisional hernia. The pathophysiology of these hernias was discussed as were the surgical and non- operative management strategies. The risks of surgery were discussed which include, but are not limited to, bleeding, infection, recurrent hernia, chronic pain, poor cosmesis, blood clots, stroke, heart attack and . Additionally,the risks of observation were discussed which include, but are not limited to, enlargement of the hernia, incarceration, strangulation, pain and . Surgical options including open, laparoscopic androbotic hernia repair were discussed in detail. He understands everything which was discussed. At this point because the hernia is asymptomatic and extremely small as well as reducible I recommended that we maintain watchful waiting. If the hernia enlarges or causes any type of pain or he notices any changes in his symptoms he can follow-up with meat any time for surgery scheduling. He understands the rationale behind this and has elected to follow-up accordingly. Georges Raines D.O., FACS [phone] [facility] Department of Surgery documented in this encounter Miscellaneous Notes Patient Instructions - HE - Historical Provider - 01/07/2019 10:10 AM CDT Hernia education & surgery packet provided to pt. Panda La CMA [facility] Surgery P: [phone] F: [phone] documented in this encounter Plan of Treatment Not on filedocumented as of this encounter Visit Diagnoses Diagnosis Incisional hernia, without obstruction o r gangrene Incisional hernia without mention of obs truction or gangrene documented in this encounter Care Teams Management Expert Relationship Specialty Start Date End Date Benjamin Henao MD PCP - General Internal Medicine 07/24/16 [address] [place] [address] documented as of this encounter
--- OUTSIDE RECORDS SUMMARY | 2022-01-01 11:47 | XMS_ITS | Encounter Summary ---
:1945 Author Organization [place] Address [address] [place] [address] Care Team Providers Name Role Phone Benjamin Henao MD Primary Care Provider Reason for Visit Reason Comments Weight Problem Post-op Visit 3 wks s/p RNY Encounter Details Date Type Department Care Team Description [facility] Surgery Clinic and [facility] Bariatrics Care [address] [place], [place] (Work) [phone] Social History Tobacco Use [...] - Inhaled Oxygen Concentration - - Weight 123.8 kg (273 lb) 05/21/2017 10:24 AM RN POSTPARTUM Height 172.7 cm (5' 8) 05/21/2017 10:24 AM RN POSTPARTUM Body Mass Index 41.51 05/21/2017 10:24 AM RN POSTPARTUM documented in this encounter Progress Notes Gayatri Weber, RN - 05/21/2017 10:30 AM CST Pt is 3 weeks s/p open RNY and is here to have his katya removed. See flowsheet. Gayatri Weber RN, CBN [facility] Surgery and Bariatric Care P [phone] F [phone] POSTPARTUM Naresh Grant MD - 05/21/2017 10:30 AM CST HPI: Pt is here for follow up of a his open Falguni-en-Y gastric bypass and splenectomy. He is feeling much better this week. His energy levels are coming back somewhat but not back to his preoperative levels. The drainage from the gastrostomy tube has stopped. He denies any fevers or chills. Denies any nausea or vomiting. Has been tolerating a pur??ed diet well. Blood sugars continue to do well with a fasting blood sugar in the morning of about 120. Current Outpatient Prescriptions Medication Sig Dispense Refill ??? aspirin 81 mg chewable tablet Chew 81 mg daily. ??? atenolol (TENORMIN) 50 MG tablet Take 50 mg by mouth daily. As directed. ??? atorvastatin (LIPITOR) 40 MG tablet Take 40 mg by mouth at bedtime. ??? cetirizine (ZYRTEC) 10 mg cap Take 1 tablet by mouth daily. ??? cyanocobalamin, vitamin B-12, 1,000 mcg Subl [...] Take 50 mg by mouth daily. ??? omeprazole (PRILOSEC) 20 MG capsule Take 20 mg by mouth daily. ??? pediatric multivitamin (FLINTSTONES) Chew chewable tablet Chew 1 tablet 2 (two) times a day. ??? ursodiol (ACTIGALL) 300 mg capsule Take 1 capsule (300 mg total) by mouth 2 (two) times a day. Start 2 wks after surgery. Do not open capsule. Swallow whole with warm water. 180 capsule 1 ??? cholecalciferol, vitamin D3, (VITAMIN D3) 5,000 unit Tab Take 1 tablet (5,000 Units total) by mouth daily. 100 tablet 3 ??? CONTOUR TEST STRIPS strips ??? MICROLET LANCET ??? sildenafil (VIAGRA) 100 MG tablet Take 1 tablet (100 mg total) by mouth as needed for erectile dysfunction. 28 tablet 3 ??? traMADol (ULTRAM) 50 mg tablet Take 2 tablets (100 mg total) by mouth every 6 (six) hours. 30 tablet 0 No current facility-administered medications for this visit. BP 130/65 Pulse 73 Resp 16 Ht 5' 8 (1.727 m) Wt (!) 273 lb (123.8 kg) BMI 41.51 kg/m2 Wt Readings from Last 3 Encounters: 05/21/17 (!) 273 lb (123.8 kg) 05/14/17 (!) 285 lb (129.3 kg) 05/06/17 (!) 299 lb (135.6 kg) Body mass index is 41.51 kg/(m^2). EXAM: GENERAL:Appears well ABDOMEN: Incisions healing well. [place] removed today. Gastrostomy site looks much better than lastweek. Assessment/Plan: Pt s/p open Falguni-en-Y gastric bypass and splenectomy. Doing well. Diet and activitydiscussed. He will f/u with us at the [facility] in 3 months for the dietitian visit. Naresh Grant MD [facility] Department of Surgery POSTPARTUM documented in this encounter Plan of Treatment Not on filedocumented as of this encounter Visit Diagnoses Diagnosis S/P gastric bypass Bariatric surgery status documented in this encounter Care Teams Managed Security Sales Consultant Relationship Specialty Start Date End Date Benjamin Henao MD PCP - General Internal Medicine 07/24/[address] [place] [address] documented as of this encounter
--- OUTSIDE RECORDS SUMMARY | 2022-01-01 11:47 | XMS_ITS | Encounter Summary ---
:1945 Author Organization [place] Address [address] [place] [address] Care Team Providers Name Role Phone Benjamin Henao MD Unavailable Benjamin Henao MD Primary Care Provider Encounter Details Date Type Department Care Team Description [facility], Winter jacobsen Social [...] on filedocumented in this encounter Care Teams Ceramic Products Sales Engineer Relationship Specialty Start Date End Date Benjamin Henao MD PCP - General Internal Medicine 07/24/[address] [place] [address] Benjamin Henao MD Assigned PCP 10/05/[address] [place] [address] documented as of this encounter
--- OUTSIDE RECORDS SUMMARY | 2022-01-01 11:47 | XMS_ITS | Encounter Summary ---
:1945 Author Organization [place] Address [address] [place] [address] Care Team Providers Name Role Phone Benjamin Henao MD Primary Care Provider Reason for Visit Reason Comments Diabetes Encounter Details Date Type Department Care Team Description 06/03/2017 [facility] Santos Krishna Diabe tes [facility] Surgery Clinic and Bariatrics Care [address] [place] [phone] Social History Tobacco Use Types Packs/Day Years Used Date Former Smoker Quit: 08/27/18 90 Alcohol Use Standard Drinks/Week Comments Yes 0 (1 standard drink = 0.6 oz pure alcoho l) Sex Assigned at Date Recorded Not on file documented as of this encounter Plan of Treatment Not on filedocumented as of this encounter Visit Diagnoses Not on filedocumented in this encounter Care Teams Back Tender Pulp Drier Relationship Specialty Start Date End Date Benjamin Henao MD PCP - General Internal Medicine 07/24/16 [address] [place] [address] documented as of this encounter
--- OUTSIDE RECORDS SUMMARY | 2022-01-01 11:47 | XMS_ITS | Encounter Summary ---
:1945 Author Organization [facility] Address [address] [place] [id number] Care Team Providers Name Role Phone Benjamin Henao MD Primary Care Provider Reason for Visit Reason Comments Weight Problem 1 yr p/o Encounter Details Date Type Department Care Team Description 06/05/2018 Office Visit - [facility] [place], Postoper ative malabsorption; [facility] and MD Santos Erectile dysfunction, unspecified erecti le dysfunction type; Bariatrics Care 2945 H/O gastric bypass; [facility] Type 2 diabetes mellitus without complic ation, without long-term current use of insulin (H); [address] Gastroesophageal reflux disease without esophagitis [address] [facility] [phone] Social History Tobacco Use Types Packs/Day Years [...] - Inhaled Oxygen Concentration - - Weight 104.9 kg (231 lb 3.2 oz) 06/05/2018 10:30 AM DISPATCH MANAGER Height 172.7 cm (5' 8) 06/05/2018 10:30 AM DISPATCH MANAGER Body Mass Index 35.15 06/05/2018 10:30 AM DISPATCH MANAGER documented in this encounter Progress Notes Santos Krishna MD - 06/05/2018 10:30 AM CST Bariatric Care Clinic Follow Up Visit for Previous Bariatric Surgery Date of visit: 06/05/2018 Physician: Santos Krishna MD Primary Care is Benjamin Henao MD. Faith Adames 72 y.o. male Date of Surgery: 05/01/17 Initial Weight: 313 lbs Initial BMI: 46.9 Today's Weight: Wt Readings from Last 1 Encounters: 06/05/18 (!) 231 lb 3.2 oz (104.9 kg) Body mass index is 35.15 kg/m??. Initial Weight: 319.6 lbs Weight: (!) 231 lb 3.2 oz (104.9 kg) Weight loss from initial: 88.4 % Weight loss: 27.66 % Assessment and Plan Assessment: Faith is a 72 y.o. year old male who is 13 months s/p Elizabeth en Y Gastric Bypass with Dr. Grant. He has had a durable weight loss of 88 lbs since surgery. Overall compliance with the [facility] has been excellent. Vitamin levels are excellent. He is off all insulin and on just 500mg of metformin which he prefers to stay on, last A1c is 5.3% and he may reach a point of being able to discontinue metformin. 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 He was counseled that should he notice weight creep above the 230s he should start working with tank cleaner again as there has been a little grazing lately due to post workout hunger issues with many of his workouts burning 1000 calories per his treadmill counter (90 minutes walking at 4% grade). He's also going to start more strength training at his gym. We discussed optimizing meals/protein intake but I will have our tank cleaner reach out for some further guidance given his unusually high workout production. . Faith Adames feels that he has achieved his preoperative goals for bariatric surgery. Plan: 1. Great job on continued good metabolic health with A1c of 5.3% and 88 lbs of weight reduction. Keeping your home scale weight under 230 lbs is a good goal for the senior living. Continue excellent exercise regimen and adding in 2 days a week of strength training. 2. Given gas, consider trial of OTC Lactaid or GasX. 3. Viagra prescription filled today per your request. Avoid if dizziness/faint or visual changes. 4. Continue excellent vitamin vitamin regimen. 1. Postoperative malabsorption 2. Erectile dysfunction, unspecified erectile dysfunction type sildenafil (VIAGRA) 100 MG tablet 3. 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 preop 313 lbs, BMI 46.9 on insulin for DM II. 4. Type 2 diabetes mellitus without complication, without long-term current use of insulin (H) 5. Gastroesophageal reflux disease without esophagitis Return in about 6 months (around 12/03/2018). Bariatric Surgery Review Interim History/LifeChanges: working out regularly feeling well. Stability overall. Patient Concerns: ED Rx, some increased hunger w/ increased workouts. If eats vegetables too quicklymay vomit chewing. Reports previous herpes zoster vaccination that he purchased on his own. Medication changes: no Appetite (1-10): increased lately, working out 5 days weekly for at least an hour GERD sx at all? Rare, PPI use. Vitamin Intake: Multivitamin yes Vitamin D yes Calcium yes Vit. B-12 yes Habits: Alcohol Intake beer occasionally. NSAID Use baby ASA, avoids other nsaids Caffeine Use one to two black coffees Exercise gym regularly, walking at 3.9mph at 4% grade. 99 minutes. Burning upwards of 900kcal per work CPAP Use: no Control no LABS: Reviewed LABS: Lab Results Component Value Date WBC 10.7 04/14/2018 HGB 12.5 (L) 04/14/2018 HCT 39.3 (L) 04/14/2018 MCV 93 04/14/2018 PLT 261 04/14/2018 Lab Results Component Value Date [id number] 36.4 04/14/2018 Lab Results Component Value Date HGBA1C 5.3 04/14/2018 Lab Results Component Value Date CHOL 177 04/14/2018 Lab Results Component Value Date PTH 33 04/14/2018 Lab Results Component Value Date FERRITIN 35 04/14/2018 Lab Results Component Value Date HDL 56 04/14/2018 Lab Results Component Value Date [id number] 1,220 (H) 04/14/2018 Lab Results Component Value Date [id number] 118 10/19/2016 Lab Results Component Value Date LDLCALC 96 04/14/2018 Lab Results Component Value Date TSH 2.37 10/19/2016 Lab Results Component Value Date FOLATE >20.0 04/14/2018 Lab Results Component Value Date TRIG 123 04/14/2018 Lab Results Component Value Date ALT 21 04/14/2018 AST 23 04/14/2018 ALKPHOS 89 04/14/2018 BILITOT 0.7 04/14/2018 No results found for: TESTOSTERONE No components found for: CHOLHDL Lab Results Component Value Date 7597 47.9 10/19/2016 @resusfast(vitamin a: 1)@ Patient Profile Social History Social History Narrative ??? Not on file Past Medical History History reviewed. No pertinent [...] Microalbuminuria ??? H/O gastric bypass Current Outpatient Medications Medication Sig Note ??? aspirin 81 mg chewable tablet Chew 81 mg daily. ??? atorvastatin (LIPITOR) 10 MG tablet Take 1 tablet (10 mg total) by mouth at bedtime. ??? calcium citrate-vitamin D3 500 mg calcium -400 unit Chew Chew 1 tablet. ??? cholecalciferol, vitamin D3, (VITAMIN D3) 5,000 unit Tab Take 1 tablet (5,000 Units total) by mouth daily. ??? CONTOUR TEST STRIPS [...] LANCET 04/08/2017: Received from: External Pharmacy ??? pediatric multivitamin (FLINTSTONES) Chew chewable tablet Chew 1 tablet 2 (two) times a day. ??? cetirizine (ZYRTEC) 10 mg cap Take 1 tablet by mouth daily. ??? omeprazole (PRILOSEC) 20 MG capsule Take 20 mg by mouth daily. ??? sildenafil (VIAGRA) 100 MG tablet Take 1 tablet (100 mg total) by mouth daily as needed for erectile dysfunction. Past Surgical History He has a past surgical history that includes Splenectomy and LAPAROSCOPIC ELIZABETH-EN-Y BASTRIC BYPASS CONVERTED TO OPEN; SPLENECTOMY (N/A, 05/01/2017). Examination BP 162/77 (Patient Site: Right Arm, Patient Position: Sitting, Cuff Size: Adult Large) Pulse (!) 57 Ht 5' 8 (1.727 m) Wt (!) 231 lb 3.2 oz (104.9 kg) SpO2 98% BMI 35.15 kg/m?? Height: 5' 8 (1.727 m) (06/05/2018 10:30 AM) Initial Weight: 319.6 lbs (06/05/2018 10:30 AM) Weight: (!) 231 lb 3.2 oz (104.9 kg) (06/05/2018 10:30 AM) Weight loss from initial: 88.4 (06/05/2018 10:30 AM) % Weight loss: 27.66 % (06/05/2018 10:30 AM) BMI (Calculated): 35.2 (06/05/2018 10:30 AM) SpO2: 98 % (06/05/2018 10:30 AM) Heart Rate (/min): 65 (11/06/2017 10:29 AM) BP (mmHg): 128/72 (11/06/2017 10:29 AM) Waist Circumference (In): 45.5 Inches (06/05/2018 10:30 AM) Hip Circumference (In): 48.5 Inches (06/05/2018 10:30 AM) Neck Circumference (In): 18 Inches (06/05/2018 10:30 AM) General: Alert and ambulatory, HEENT: No conjunctival pallor, moist mucous Membranes, neck is thin. Pulmonary: Normal respiratory effort, no cough, no audible wheezes/crackles. CV: Regular rate and Rhythm, no murmurs, pulses 2 plus Abdominal: obese, soft, non tender. Midline incision well healed. Extremities: no edema, no tremor Skin: No pallor or jaundice Pscyh/Mood: good, happy with results. Counseling: We reviewed the important post op [...] nutritional or structural complications. Santos Krishna MD [facility]. 06/05/2018 10:59 AM ATCH MANAGER documented in this encounter Miscellaneous Notes Patient Instructions - HÉCTOR - Santos Krishna MD - 06/05/2018 10:30 AM DISPATCH MANAGER Plan: 1. Great job on continued good metabolic health with A1c of 5.3% and 88 lbs of weight reduction. Keeping your home scale weight under 230 lbs is a good goal for the watermaster. Continue excellent exercise regimen and adding in 2 days a week of strength training. 2. Given gas, consider trial of OTC Lactaid or GasX. 3. Viagra prescription filled today per your request. Avoid if dizziness/faint or visual changes. 4. Continue excellent vitamin vitamin regimen. [facility] Nutritional Guidelines Gastric Bypass 12 Months Post Op General Guidelines and Helpful Hints: ??? Eat [...] whole grains, and beans. ??? Portions should be about 1 cup per meal. Use measuring cups to be accurate. ??? Continue to use saucer/salad plates, /toddler silverware to keep portion sizes small and [...] for continued weight loss and weight maintenance. Aim for 30-60 minutes of physical activity most days of the week. Include cardiovascular and strength training. ??? If having trouble tolerating meat, try [...] per serving. ??? Continue Taking Vitamins/Minerals: o 1000mcg of Sublingual B-12 daily or at least 3-4 days weekly. o 1 Multivitamin with Iron twice daily (chewable or swallow tabs) o 500-600 mg Calcium Citrate twice daily (chewable or swallow tabs) o 5000 IU Vitamin D3 daily Sample Grocery List Protein: ??? Fat free Sinhala or light yogurt (less than 10 grams [...] ??? Beans such as kidney, garbanzo, black, cannon, or low-fat/fat free refried beans ??? Peanut butter (natural preferred). Limit to 1 Tbsp. per day. ??? Low-fat meatloaf (made with lean ground beef or turkey) ??? Sloppy [place] made with low-sugar ketchup and lean ground [...] dry) ??? Toasted whole wheat bread or Butterfield Thins ??? Whole grain crackers ??? Baked/boiled/mashed potato/sweet potato ??? Cooked whole grain pasta, [...] nguyen or salad dressing Sample Menu for 12 months after Gastric Bypass You do NOT need to eat/drink the full portion sizes listed below Always stop when you are satisfied Breakfast ?? cup 1% cottage cheese ?? cup diced peaches Lunch ?? slice whole grain bread/toast with 1 tsp. light nguyen 2 oz. sliced lean turkey, ham, or chicken ?? cup carrots Supplement Approved protein supplement (as needed between meals) Dinner ?? cup 93% lean ground beef mixed with 2 Tbsp. marinara sauce ?? cup green beans ?? cup whole grain pasta Breakfast ?? cup egg substitute or 2 egg whites, scrambled 1 oz low fat shredded cheese ?? cup saut??ed chopped vegetables mixed in Lunch 1 cup chili made with lean ground beef or turkey Supplement 6 oz light Sinhala yogurt (as needed) Dinner 3 oz grilled, broiled, or baked lemon pepper salmon 2 Tbsp. grilled asparagus 2 Tbsp. baked sweet potato Breakfast ?? cup whole grain oatmeal made with skim milk and unflavored protein powder added ?? cup blueberries Lunch 3 oz meatloaf made with lean ground turkey ?? cup steamed broccoli Dinner 3 oz pork loin made in a crock pot seasoned with a spice rub ?? cup cooked carrots Supplement Approved protein supplement (as needed between meals) Breakfast ?? cup egg scramble made with egg substitute and turkey sausage ?? whole grain Bermudian muffin with 1 teaspoon low sugar jelly Lunch 3 oz seasoned, skinless grilled chicken ?? cup grilled vegetables Dinner 2 oz lean beef ?? cup brown rice ?? cup strawberries Supplement 1 string cheese (as needed) Breakfast 6 ounces light Sinhala yogurt ?? cup unsweetened mixed berries Lunch 3 oz shrimp, with low-sugar cocktail sauce for dipping ?? cup pea pods Supplement ?? cup fat free cottage cheese (as needed) Dinner 3 oz tender turkey breast (made in crock pot for extra moisture) ?? of a small whole wheat dinner roll Breakfast ?? cup low fat cottage cheese ?? cup strawberries Lunch ?? cup black renee soup 4 whole grain crackers Supplement 1 cup skim milk with scoop of protein powder added (as needed) Dinner 3 oz. grilled tilapia with lemon pepper seasoning ?? cup grilled dan peppers Breakfast 2 ounces turkey sausage dong ?? whole wheat Bermudian muffin Supplement Approved protein supplement (as needed between meals) Lunch 3 oz lean ham, turkey, or chicken ?? cup tomatoes Dinner 2 oz. sirloin steak ?? cup mixed vegetables ?? cup brown rice ATCH MANAGER documented in this encounter Plan of Treatment Not on filedocumented as of this encounter Visit Diagnoses Diagnosis Postoperative malabsorption Other and unspecified postsurgical nonab sorption Erectile dysfunction, unspecified erecti le dysfunction type H/O gastric bypass Bariatric surgery status Type 2 diabetes mellitus without complic ation, without long-term current use of insulin (H) Gastroesophageal reflux disease without esophagitis Esophageal reflux documented in this encounter Care Teams Coal Pulverizing Operator Relationship Specialty Start Date End Date Benjamin Henao MD PCP - General Internal Medicine 07/24/16 [address] [place] [address] documented as of this encounter
--- OUTSIDE RECORDS SUMMARY | 2022-01-01 11:47 | XMS_ITS | Encounter Summary ---
:1945 Author Organization [facility] Address [address] [place] [address] Care Team Providers Name Role Phone Benjamin Henao MD Primary Care Provider Encounter Details Date Type Department Care Team Description 10/24/2018 Records - [facility] Provider, [facility] Information Management [address] [facility] [address] [place] [phone] Social History Tobacco Use Types Packs/Day Years [...] nts EYE EXAM - HIM SCAN Routine 02/26/2018 Results for this procedure are i n the results section . documented in this encounter Results Eye Exam - HIM Scan (02/26/2018) Specimen (Source) Anatomical Location Collection Method / Collectio n Time Received Time / Laterality Volume Narrative Tiffani Reid - 02/26/2018 This order was created through External Result Entry [facility] Consultation External Historical Provider OTHER documented in this encounter Visit Diagnoses Not on filedocumented in this encounter Care Teams Cost Coordinator Relationship Specialty Start Date End Date Benjamin Henao MD PCP - General Internal Medicine 07/24/16 [address] [place] [address] documented as of this encounter
--- OUTSIDE RECORDS SUMMARY | 2022-01-01 11:47 | XMS_ITS | Encounter Summary ---
:1945 Author Organization [facility] Address [address] [place] [id number] Care Team Providers Name Role Phone Benjamin Henao MD Primary Care Provider Reason for Visit Reason Comments Appointment want to see Dr Benjamin Henao for bp check and diabetes on Jun 13 Encounter Details Date Type Department Care Team Description 06/11/2017 Communication - [facility] Benjamin Henao, Ivan ointment [facility] Benjamin Perez [address] [facility] Juliano ... [address] [place] [phone] Social History Tobacco Use Types Packs/Day Years Used Date Former Smoker Quit: 08/27/18 90 Alcohol Use Standard Drinks/Week Comments Yes 0 (1 standard drink = 0.6 oz pure alcoho l) Sex Assigned at Date Recorded Not on file documented as of this encounter Plan of Treatment Not on filedocumented as of this encounter Visit Diagnoses Not on filedocumented in this encounter Care Teams Applications Development Consultant Relationship Specialty Start Date End Date Benjamin Henao MD PCP - General Internal Medicine 07/24/161824 [place] [address] documented as of this encounter
--- OUTSIDE RECORDS SUMMARY | 2022-01-01 11:47 | XMS_ITS | Encounter Summary ---
:1945 Author Organization [facility] Address [address] [place] [address] Care Team Providers Name Role Phone Benjamin Henao MD Primary Care Provider Reason for Visit Reason Comments Nutrition Counseling Encounter Details Date Type Department Care Team Description 06/06/2017 Ambulatory - [facility] Bariatric surgery status; [facility] and Obesity, morbid, BMI 40.0-49.9 (H); Bariatrics Care Nutritional counseling [address] [phone] Social History Tobacco Use Types Packs/Day Years Used Date Former Smoker Quit: 08/27/18 90 Alcohol Use Standard Drinks/Week Comments Yes 0 (1 standard drink = 0.6 oz pure alcoho l) Sex Assigned at Date Recorded Not on file documented as of this encounter Progress Notes Historical Provider - 06/06/2017 4:00 PM CST Time in: 4:00 pm Time out: 4:30 pm . Pt presents for 1 month post op dietitian follow up class . Reports tolerating soft food diet well.Denies n/v, constipation/diarrhea, or significant pain. Taking MVI and SL B12 appropriately.Instructed pt to begin taking 500 mg calcium citrate BID and 5000 IU Vitamin D3. Educated pt on soft to bariatric regular diets, medications, developing an exercise regimen, and other dietary points of care. Provided Education handout on items discussed . Pt to follow up with RD at 3 months post op. documented in this encounter Plan of Treatment Not on filedocumented as of this encounter Visit Diagnoses Diagnosis Bariatric surgery status Obesity, morbid, BMI 40.0-49.9 (H) Nutritional counseling documented in this encounter Care Teams Material Handler 2Nd Shift Relationship Specialty Start Date End Date Benjamin Henao MD PCP - General Internal Medicine 07/24/[address] [place] [id number] documented as of this encounter
--- OUTSIDE RECORDS SUMMARY | 2022-01-01 11:47 | XMS_ITS | Encounter Summary ---
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 (H); [facility] Jose R [place] H/O gastric bypass; [address] Postsurgical malabsorption; [address] Intestinal malabsorption, unspecified ty pe; Drive [place], [place] S/[place] [phone] Social History Tobacco Use Types Packs/Day [...] - Inhaled Oxygen Concentration - - Weight 101.6 kg (224 lb) 10/22/2017 11:05 AM CDT Height - - Body Mass Index 34.06 07/22/2017 12:00 PM CDT documented in this encounter Progress Notes Benjamin Henao MD - 10/22/2017 11:00 AM CDT Faith is a 72 y/o male who presents today for follow up of his chronic medical conditions. He underwent Falguni-en-Y gastric bypass in April of 2017 and has since lost 80-100 pounds. He feels much better and is able to be much more independent because of his weight loss. I took him off his atenolol at his last visit because of hypotension. He is also due for a hemoglobin A1c and a lipid profile. He is seeing Dr. Krishna in the bariatric center later in the month and has a number of labs that need to be drawn prior to that visit. He is feeling well today. A complete ROS was negative. Obj: VSS, afeb A/P: 1) T2DM. Check A1c, lipids, urine micro 2) HTN. Stable. Continue losartan 3) S/P gastric bypass surgery. Check labs as per Dr. Krishna. documented in this encounter Plan of Treatment Not on filedocumented as of this encounter Procedures Procedure Name Priority Date/Time Associated Comments Diagnosis ALBUMIN RANDOM URINE Routine 10/22/2017 11:49 Res ults for this QUANTITATIVE AM CDT procedure are i n the results section. CBC WITH PLATELETS Routine 10/22/2017 11:49 Resul ts for this AM CDT procedure are i n the results section. 1,25 DIHYDROXYVITAMIN D Routine 10/22/2017 11:49 Results for this AM CDT procedure are i n the results section. ZINC Routine 10/22/2017 11:49 Results for this AM CDT procedure are i n the results section. VITAMIN B1 WHOLE BLOOD Routine 10/22/2017 11:49 R esults for this AM CDT procedure are i n the results section. VITAMIN A Routine 10/22/2017 11:49 Results for this AM CDT procedure are i n the results section. PARATHYROID HORMONE Routine 10/22/2017 11:49 Resu lts for this INTACT AM CDT procedure are i n the results section. LIPID PROFILE Routine 10/22/2017 11:49 Results fo r this AM CDT procedure are i n the results section. HEMOGLOBIN A1C Routine 10/22/2017 11:49 Results f or this AM CDT procedure are i n the results section. FOLATE Routine 10/22/2017 11:49 Results for this AM CDT procedure are i n the results section. FERRITIN Routine 10/22/2017 11:49 Results for this AM CDT procedure are i n the results section. COMPREHENSIVE METABOLIC Routine 10/22/2017 11:49 Results for this PANEL AM CDT procedure are i n the results section. VITAMIN B12 Routine 10/22/2017 11:49 Results for this AM CDT procedure are i n the results section. documented in this encounter Results (ABNORMAL) CBC with platelets (10/22/2017 11:49 AM CDT) [facility] Method Time Signature WBC 12.8 (H) 4.0 - 11.0 10/22/2017 [facility] thou/uL 12:32 PM CDT [facility] RBC Count 4.16 (L) 4.40 - 10/22/2017 [facility] 6.20 12:32 PM CDT [facility] mill/uL [facility] Hemoglobin 11.9 (L) 14.0 - 10/22/2017 [facility] 18.0 g/dL 12:32 PM CDT [facility] Hematocrit 37.1 (L) 40.0 - 10/22/2017 [facility] 54.0 % 12:32 PM CDT [facility] MCV 89 80 - 100 10/22/2017 [facility] fL 12:32 PM CDT [facility] MCH 28.5 27.0 - 10/22/2017 [facility] 34.0 pg 12:32 PM CDT [facility] MCHC 32.0 32.0 - 10/22/2017 [facility] 36.0 g/dL 12:32 PM CDT [facility] RDW 13.9 11.0 - 10/22/2017 [facility] 14.5 % 12:32 PM CDT [facility] Platelet Count 311 140 - 440 10/22/2017 [facility] thou/uL 12:32 PM CDT [facility] Mean Platelet 9.0 7.0 - 10.0 10/22/2017 [facility] Volume fL 12:32 PM CDT [facility] Specimen Anatomical Collection Method / Collection Time Recei nona Time (Source) Location / Volume Laterality Blood specimen Venipuncture / 10/22/2017 11:49 018 (specimen) Unknown AM CDT 11:49 AM CDT Santos Krishna MD LAB - BLOOD ORDERABLES Performing Organization Address City/State/ZIP Code Phon e Number [facility] [place] [address] 1875 [facility] [address] [place], [place] [address] CLINIC LABORATORY (ABNORMAL) Albumin Random Urine Quantitative (10/22/2017 11:49 AM CDT) [facility] gist Method Time Signature Microalbumin 1.49 0.00 - 10/22/2017 Urine mg/dL 1.99 8:35 PM CDT mg/dL Creatinine, Urine 68.9 mg/dL 10/22/2017 8:35 PM CDT Microalbumin 21.6 (H) <=19.9 10/22/2017 Urine mg/g Cr mg/g 8:35 PM CDT Specimen Anatomical Collection Method Collection Time Receive d Time (Source) Location / / Volume Laterality Urine specimen Non-blood 10/22/2017 11:49 8 6:45 (specimen) Collection / AM CDT PM CDT Unknown Narrative 10/22/2017 8:35 PM CDT Microalbumin, Random Urine <2.0 mg/dL . . . . . . . . Normal 3.0-30.0 mg/dL . . . . . . Microalbuminu kathleen >30.0 mg/dL . . . . . . ??. Clinical Pro teinuria Microalbumin/Creatinine Ratio, Random Ur ine <20 mg/g . . . . .. . . . Normal 30-300 mg/g . . . . . . . Microalbuminur ia >300 mg/g . . . . . . . . Clinical Prote inuria Benjamin Henao MD LAB - URINE ORDERABLES Hemoglobin A1c (10/22/2017 11:49 AM CDT) P athologist Signature Hemoglobin A1C 5.6 3.5 - 6.0 10/22/2017 [facility] % 12:41 PM CDT [facility] Specimen Anatomical Collection Method / Collection Time Recei nona Time (Source) Location / Volume Laterality Blood specimen Venipuncture / 10/22/2017 11:49 018 (specimen) Unknown AM CDT 11:49 AM CDT Santos Krishna MD LAB - BLOOD ORDERABLES Performing Organization Address City/[facility] Phon e Number [facility] [place] [address] [address] CLINIC LABORATORY (ABNORMAL) Lipid Profile (10/22/2017 11:49 AM CDT) [facility] Method Time Signature Triglycerides 141 <=149 10/22/2017 [facility] mg/dL 8:00 PM CDT [facility] Cholesterol 210 (H) <=199 10/22/2017 [facility] mg/dL 8:00 PM CDT [facility] LDL Cholesterol 137 (H) <=129 10/22/2017 [facility] Calculated mg/dL 8:00 PM CDT [facility] Direct Measure 45 >=40 10/22/2017 [facility] HDL mg/dL 8:00 PM CDT [facility] Patient Fasting > Yes 10/22/2017 [facility] 8hrs? 8:00 PM CDT [facility] Specimen Anatomical Collection Method / Collection Time Recei nona Time (Source) Location / Volume Laterality Blood specimen Venipuncture / 10/22/2017 11:49 018 6:45 (specimen) Unknown AM CDT PM CDT Santos Krishna MD LAB - BLOOD ORDERABLES Performing Organization Address City/State/ZIP [facility] Phon e Number [place] [address] [address] [facility] Vitamin B1 whole blood (10/22/2017 11:49 AM CDT) P athologist Signature Vitamin B1 118 70 - 180 10/26/2017 [facility] Whole Blood nmol/L 7:51 AM CDT LABORATORIES Level Comment: INTERPRETIVE INFORMATION: Vitamin B1, Wh ole Blood This assay measures the concentration of thiamine diphosphate (TDP), the primary active form of vitami n B1. Approximately 90 percent of vitamin B1 present in whole b lood is TDP. Thiamine and thiamine monophosphate, which comprise t he remaining 10 percent, are not measured. Test developed and characteristics deter mined by [employer]. See Compliance Statement B : [employer]/CS Performed by [employer], [address] [place] [id number] www.[email or web address], Karlos Acosta MD, Lab. Director Specimen Anatomical Collection Method / Collection Time Recei nona Time (Source) Location / Volume Laterality Blood specimen Venipuncture / 10/22/2017 11:49 018 (specimen) Unknown AM CDT 11:55 PM CDT Santos Krishna MD LAB - BLOOD ORDERABLES Performing Organization Address City/State/ZIP Code Phon e Number [facility] [place], [place] [phone] [place] [phone] [facility] [address] [address] (ABNORMAL) Comprehensive metabolic panel (10/22/2017 11:49 AM CDT) Patholo gist Method Time Signature Sodium 139 136 - 145 10/22/2017 [facility] mmol/L 8:00 PM CDT [facility] Potassium 4.5 3.5 - 5.0 10/22/2017 [facility] mmol/L 8:00 PM CDT [facility] Chloride 106 98 - 107 10/22/2017 [facility] mmol/L 8:00 PM CDT [facility] Carbon Dioxide 23 22 - 31 10/22/2017 [facility] (CO2) mmol/L 8:00 PM CDT [facility] Anion Gap 10 5 - 18 10/22/2017 [facility] mmol/L 8:00 PM CDT [facility] Glucose 128 (H) 70 - 125 10/22/2017 [facility] mg/dL 8:[address] [facility] Urea Nitrogen 24 8 - 28 10/22/2017 [facility] mg/dL 8:[address] [facility] Creatinine 1.00 0.70 - 10/22/2017 [facility] 1.30 mg/dL 8:[address] [facility] GFR Estimate If >60 >60 10/22/2017 [facility] Black mL/min/1.7 8:[address] LABORATORY GFR Estimate >60 >60 10/22/2017 [facility] mL/min/1.7 8:[address] LABORATORY Bilirubin Total 0.7 0.0 - 1.0 10/22/2017 [facility] mg/dL 8:00 PM T [facility] Calcium 10.1 8.5 - 10.5 10/22/2017 [facility] mg/dL 8:[address] [facility] Protein Total 7.0 6.0 - 8.0 10/22/2017 [facility] g/dL 8:[address] [facility] Albumin 3.8 3.5 - 5.0 10/22/2017 [facility] g/dL 8:[address] [facility] Alkaline 107 45 - 120 10/22/2017 [facility] Phosphatase U/L 8:[address] [facility] AST 18 0 - 40 U/L 10/22/2017 [facility] 8:[address] [facility] ALT 14 0 - 45 U/L 10/22/2017 [facility] 8:[address] [facility] Specimen Anatomical Collection Method / Collection Time Recei nona Time (Source) Location / Volume Laterality Blood specimen Venipuncture / 10/22/2017 11:49 018 6:45 (specimen) Unknown AM CDT PM CDT Narrative [facility] - 10/22/2017 8:00 PM CDT Fasting Glucose reference range is 70-99 mg/dL per [place] [employer] (ADA) addie rojas. Santos Krishna MD LAB - BLOOD ORDERABLES Performing Organization Address City/[facility]/ZIP [facility] Phon e [place] [address] [id number] [place] [address] LABORATORY [facility] [address] [place] [id number], [facility] (ABNORMAL) Ferritin (10/22/2017 11:49 AM CDT) athologist Signature Ferritin 25 (L) 27 - 300 10/22/2017 [facility] ng/mL 8:25 PM CDT [facility] Specimen Anatomical Collection Method / Collection Time Recei nona Time (Source) Location / Volume Laterality Blood specimen Venipuncture / 10/22/2017 11:49 2 018 6:41 (specimen) Unknown AM CDT PM CDT Santos Krishna MD LAB - BLOOD ORDERABLES Performing Organization Address City/[facility] Phon [place] [address] [phone] [address] [facility] (ABNORMAL) Vitamin B12 (10/22/2017 11:49 AM CDT) athologist Signature Vitamin B12 >2000 (H) 213 - 816 10/22/2017 [facility] pg/mL 8:24 PM CDT [facility] Specimen Anatomical Collection Method / Collection Time Recei nona Time (Source) Location / Volume Laterality Blood specimen Venipuncture / 10/22/2017 11:49 2 018 6:40 (specimen) Unknown AM CDT PM CDT Santos Krishna MD LAB - BLOOD ORDERABLES Performing Organization Address City/[facility]/ZIP Code Phon [place] [address] [phone] [place] [address] [facility] Parathyroid Hormone Intact (10/22/2017 11:49 AM CDT) athologist Signature Parathyroid 42 10 - 86 10/22/2017 [facility] Hormone Intact pg/mL 7:39 PM CDT [facility] Specimen Anatomical Collection Method / Collection Time Recei nona Time (Source) Location / Volume Laterality Blood specimen Venipuncture / 10/22/2017 11:49 018 6:45 (specimen) Unknown AM CDT PM CDT Santos Krishna MD LAB - BLOOD ORDERABLES Performing Organization Address [facility] Phon e Number [facility] [place] [address] [address] [facility] 1,25 Dihydroxyvitamin D (10/22/2017 11:49 AM CDT) athologist Signature Vitamin D, 40.2 30.0 - 10/23/2017 [facility] Total 80.0 ng/mL 10:45 AM CDT [facility] (25-Hydroxy) [facility] Specimen Anatomical Collection Method / Collection Time Recei nona Time (Source) Location / Volume Laterality Blood specimen Venipuncture / 10/22/2017 11:49 018 6:41 (specimen) Unknown AM CDT PM CDT Narrative [facility] - 10/23/2017 10:45 AM CDT Deficiency <10.0 ng/mL Insufficiency 10.0-29.9 ng/mL Sufficiency 30.0-80.0 ng/mL Toxicity (possible) >100.0 ng/mL Santos Krishna MD LAB - BLOOD ORDERABLES Performing Organization Address [facility] Phon e Number [facility] [place] [address] [address] [facility] [address] [place] [id number], [facility] Zinc (10/22/2017 11:49 AM CDT) athologist Signature Zinc, 60 60 - 120 10/24/2017 [facility] Serum/Plasma ug/dL 5:51 PM CDT LABORATORIES Comment: INTERPRETIVE INFORMATION: Zinc, Serum or Plasma Circulating zinc concentrations are depe ndent on albumin status and are depressed with malnutrition. Zin c may also be lowered with infection, inflammation, stress, oral co ntraceptives, and . Zinc may be elevated with zin c supplementation or fasting. Elevated zinc concentrations ma y interfere with copper absorption. Test developed and characteristics deter mined by [employer]. See Compliance Statement B : [employer] Performed by [employer], [address] [place] [phone] www.[email or web address], Karlos Acosta MD, Lab. Director Specimen Anatomical Collection Method / Collection Time Recei nona Time (Source) Location / Volume Laterality Blood specimen Venipuncture / 10/22/2017 11:49 018 (specimen) Unknown AM CDT 10:04 PM CDT Santos Krishna MD LAB - BLOOD ORDERABLES Performing Organization Address City/[facility]/ZIP Code Phon e Number [facility] LABS [place], [place] [phone] [place] [phone] [facility] [address] [address] Folate (10/22/2017 11:49 AM CDT) athologist Signature Folic Acid 18.2 >=3.5 ng/mL 10/22/2017 [facility] 9:57 PM CDT [facility] Specimen Anatomical Collection Method / Collection Time Recei nona Time (Source) Location / Volume Laterality Blood specimen Venipuncture / 10/22/2017 11:49 018 6:46 (specimen) Unknown AM CDT PM CDT Santos Krishna MD LAB - BLOOD ORDERABLES Performing Organization Address City/[facility]/ZIP Code Phon [place] [address] [facility] [address] [place] [phone] [facility] Vitamin A (10/22/2017 11:49 AM CDT) Analysis Performed At Patho logist Time Signature Vitamin A 0.54 0.30 - 10/25/2017 [facility] 1.20 mg/L 12:06 PM CDT LABORATORIES Vitamin A 0.07 0.00 - 10/25/2017 [facility] (Retinyl 0.10 mg/L 12:06 PM CDT LABORATORIES Palmitate) Vitamin A Normal 10/25/2017 [facility] Interp 12:06 PM CDT LABORATORIES Comment: Test developed and characteristics deter mined by [employer]. See Compliance Statement B : [employer]/CS Performed by [employer], [address] [place] [phone] www.[email or web address], Karlos Acosta MD, Lab. Director Specimen Anatomical Collection Method / Collection Time Recei nona Time (Source) Location / Volume Laterality Blood specimen Venipuncture / 10/22/2017 11:49 018 (specimen) Unknown AM CDT 10:35 PM CDT Santos Krishna MD LAB - BLOOD ORDERABLES Performing Organization Address City/State/ZIP Code Phon e Number [employer] [place], [place] [phone] [place] [phone] [employer] [address] [place] [phone] documented in this encounter Visit Diagnoses Diagnosis Type 2 diabetes mellitus without complic ation, unspecified correction insulin use status H/O gastric bypass Bariatric surgery status Postsurgical malabsorption Other and unspecified postsurgical nonab sorption Intestinal malabsorption, unspecified ty pe S/P bariatric surgery Bariatric surgery status documented in this encounter Care Teams [employer] Supervisor Relationship Specialty Start Date End Date Benjamin Henao MD PCP - General Internal Medicine 07/24/16 [address] [place] [address] documented as of this encounter
--- OUTSIDE RECORDS SUMMARY | 2022-01-01 11:47 | XMS_ITS | Encounter Summary ---
:1945 Author Organization [facility] Address [address] [place] [id number] Care Team Providers Name Role Phone Benjamin Henao MD Primary Care Provider Encounter Details Date Type Department Care Team Description 04/14/2018 Ambulatory - M [facility] Postsurgic al malabsorption; [facility] S/P bariatri c surgery; [facility] Intestinal malabsorption, un specified [address] [place] [address] Social History Tobacco Use Types Packs/Day Years Used Date Former Smoker Quit: 08/27/18 90 Alcohol Use Standard Drinks/Week Comments Yes 0 (1 standard drink = 0.6 oz pure alcoho l) Sex Assigned at Date Recorded Not on file documented as of this encounter Plan of Treatment Not on filedocumented as of this encounter Procedures Procedure Name Priority Date/Time Associated Comments Diagnosis 1,25 DIHYDROXYVITAMIN D Routine 04/14/2018 9:20 R esults for this AM RADIO SURVEY WORKER procedure are i n the results section. ZINC Routine 04/14/2018 9:20 Results for this AM RADIO SURVEY WORKER procedure are i n the results section. VITAMIN B1 WHOLE BLOOD Routine 04/14/2018 9:20 Re sults for this AM [employer]IO SURVEY WORKER procedure are i n the results section. VITAMIN A Routine 04/14/2018 9:20 Results for this AM RADIO SURVEY WORKER procedure are i n the results section. PARATHYROID HORMONE Routine 04/14/2018 9:20 Resul ts for this INTACT AM RADIO SURVEY WORKER procedure are i n the results section. HEMOGLOBIN A1C Routine 04/14/2018 9:20 Results fo r this AM [employer]IO SURVEY WORKER procedure are i n the results section. FOLATE Routine 04/14/2018 9:20 Results for this AM RADIO SURVEY WORKER procedure are i n the results section. VITAMIN B12 Routine 04/14/2018 9:20 Results for this AM RADIO SURVEY WORKER procedure are i n the results section. CBC WITH PLATELETS Routine 04/14/2018 9:20 Result s for this AM RADIO SURVEY WORKER procedure are i n the results section. LIPID PROFILE Routine 04/14/2018 9:20 Results for this AM RADIO SURVEY WORKER procedure are i n the results section. FERRITIN Routine 04/14/2018 9:20 Results for this AM [employer]IO SURVEY WORKER procedure are i n the results section. COMPREHENSIVE METABOLIC Routine 04/14/2018 9:20 R esults for this PANEL AM RADIO SURVEY WORKER procedure are i n the results section. documented in this encounter Results Hemoglobin A1c (04/14/2018 9:20 AM RADIO SURVEY WORKER) athologist Signature Hemoglobin A1C 5.3 3.5 - 6.0 04/14/2018 HEALTH % 9:45 AM RADIO SURVEY WORKER [facility] Specimen Anatomical Collection Method / Collection Time Recei nona Time (Source) Location / Volume Laterality Blood specimen Venipuncture / 04/14/2018 9:20 04/14/20 18 9:20 (specimen) Unknown AM RADIO SURVEY WORKER AM RADIO SURVEY WORKER Santos Krishna MD LAB - BLOOD ORDERABLES Performing Organization Address City/State/ZIP Code Phon e Number [facility] [place] [address] [place] [address] [phone] CLINIC LABORATORY Vitamin B1 whole blood (04/14/2018 9:20 AM RADIO SURVEY WORKER) athologist Signature Vitamin B1 123 70 - 180 04/17/2018 [facility] Whole Blood nmol/L 9:23 AM RADIO SURVEY WORKER LABORATORIES Level Comment: INTERPRETIVE INFORMATION: Vitamin B1, Wh ole Blood This assay measures the concentration of thiamine diphosphate (TDP), the primary active form of vitami n B1. Approximately 90 percent of vitamin B1 present in whole b lood is TDP. Thiamine and thiamine monophosphate, which comprise t he remaining 10 percent, are not measured. Test developed and characteristics deter mined by [employer]. See Compliance Statement B : HistoryFile/CS Performed by [employer], [address] [place] [address] [email or web address], Karlos Acosta MD, Lab. Director Specimen Anatomical Collection Method / Collection Time Recei nona Time (Source) Location / Volume Laterality Blood specimen Venipuncture / 04/14/2018 9:20 04/16/20 18 6:04 (specimen) Unknown AM RADIO SURVEY WORKER AM RADIO SURVEY WORKER Santos Krishna MD LAB - BLOOD ORDERABLES Performing Organization Address [facility]/ZIP [facility] Phon e Number [employer] [facility] [employer] [place], [place] [phone] [place] [phone] [employer] [address] [phone] (ABNORMAL) Vitamin B12 (04/14/2018 9:20 AM RADIO SURVEY WORKER) P athologist Signature Vitamin B12 1,220 (H) 213 - 816 04/14/[address] [facility] pg/mL 3:00 PM [facility] Specimen Anatomical Collection Method / Collection Time Recei nona Time (Source) Location / Volume Laterality Blood specimen Venipuncture / 04/14/2018 9:20 04/14/20 18 1:48 (specimen) Unknown AM RADIO SURVEY WORKER PM RADIO SURVEY WORKER Santos Krishna MD LAB - BLOOD ORDERABLES Performing Organization Address City/[facility]/ZIP [facility] [place] [address] [address] [facility] (ABNORMAL) CBC with platelets (04/14/2018 9:20 AM RADIO SURVEY WORKER) Patholo gist Method Time Signature WBC 10.7 4.0 - 11.0 04/14/2018 HEALTH thou/uL 9:39 AM [facility] RBC Count 4.22 (L) 4.40 - 04/14/2018 HEALTH 6.20 9:39 AM [facility] mill/uL URY [facility] Hemoglobin 12.5 (L) 14.0 - 04/14/2018 HEALTH 18.0 g/dL 9:39 AM [facility] Hematocrit 39.3 (L) 40.0 - 04/14/2018 HEALTH 54.0 % 9:39 AM [facility] MCV 93 80 - 100 04/14/2018 HEALTH fL 9:39 AM [facility] MCH 29.7 27.0 - 04/14/2018 HEALTH 34.0 pg 9:39 AM [facility] MCHC 31.8 (L) 32.0 - 04/14/2018 HEALTH 36.0 g/dL 9:39 AM [facility] RDW 12.1 11.0 - 04/14/2018 HEALTH 14.5 % 9:39 AM [facility] Platelet Count 261 140 - 440 04/14/[address] [facility] thou/uL 9:39 AM [facility] Mean Platelet 9.0 7.0 - 10.0 04/14/2018 HEALTH Volume fL 9:39 AM [facility] Specimen Anatomical Collection Method / Collection Time Recei nona Time (Source) Location / Volume Laterality Blood specimen Venipuncture / 04/14/2018 9:20 04/14/20 18 9:20 (specimen) Unknown AM RADIO SURVEY WORKER AM RADIO SURVEY WORKER Santos Krishna MD LAB - BLOOD ORDERABLES Performing Organization Address City/State/ZIP Code Phon e Number [facility] [place] [address] [place] [phone] CLINIC LABORATORY Parathyroid Hormone Intact (04/14/2018 9:20 AM RADIO SURVEY WORKER) P athologist Signature Parathyroid 33 10 - 86 04/14/2018 HEALTH Hormone Intact pg/mL 2:32 PM [facility] Specimen Anatomical Collection Method / Collection Time Recei nona Time (Source) Location / Volume Laterality Blood specimen Venipuncture / 04/14/2018 9:20 04/14/20 18 1:48 (specimen) Unknown AM RADIO SURVEY WORKER PM RADIO SURVEY WORKER Santos Krishna MD LAB - BLOOD ORDERABLES Performing Organization Address City/[facility]/ZIP [facility] [place] [address] [address] [facility] 1,25 Dihydroxyvitamin D (04/14/2018 9:20 AM RADIO SURVEY WORKER) athologist Signature Vitamin D, 36.4 30.0 - 04/15/[address] [facility] Total 80.0 ng/mL 8:16 AM RADIO SURVEY WORKER [facility] (25-Hydroxy) [facility] Specimen Anatomical Collection Method / Collection Time Recei nona Time (Source) Location / Volume Laterality Blood specimen Venipuncture / 04/14/2018 9:20 04/14/20 18 1:48 (specimen) Unknown AM RADIO SURVEY WORKER PM RADIO SURVEY WORKER Narrative [facility] - 04/15/2018 8:16 AM RADIO SURVEY WORKER Deficiency <10.0 ng/mL Insufficiency 10.0-29.9 ng/mL Sufficiency 30.0-80.0 ng/mL Toxicity (possible) >100.0 ng/mL Santos Krishna MD LAB - BLOOD ORDERABLES Performing Organization Address City/[facility] Phon e [place] [address] [address] [facility] [address] [place] [address], [facility] Zinc (04/14/2018 9:20 AM RADIO SURVEY WORKER) athologist Signature Zinc, 71 60 - 120 04/16/2018 [facility] Serum/Plasma ug/dL 3:39 PM RADIO SURVEY WORKER LABORATORIES Comment: INTERPRETIVE INFORMATION: Zinc, Serum or Plasma Circulating zinc concentrations are depe ndent on albumin status and are depressed with malnutrition. Zin c may also be lowered with infection, inflammation, stress, oral co ntraceptives, and . Zinc may be elevated with zin c supplementation or fasting. Elevated zinc concentrations ma y interfere with copper absorption. Test developed and characteristics deter mined by [employer]. See Compliance Statement B : HistoryFile/CS Performed by [employer], [address] [place] [address] [email or web address], Karlos Acosta MD, Lab. Director Specimen Anatomical Collection Method / Collection Time Recei nona Time (Source) Location / Volume Laterality Blood specimen Venipuncture / 04/14/2018 9:20 04/16/20 18 2:57 (specimen) Unknown AM RADIO SURVEY WORKER AM RADIO SURVEY WORKER Santos Krishna MD LAB - BLOOD ORDERABLES Performing Organization Address [facility] Phon e Number [email or web address] [employer] [place], [place] [phone] [address] [facility] [phone] [phone] Folate (04/14/2018 9:20 AM RADIO SURVEY WORKER) P athologist Signature Folic Acid >20.0 >=3.5 ng/mL 04/14/[address] [facility] 3:09 PM [facility] Specimen Anatomical Collection Method / Collection Time Recei nona Time (Source) Location / Volume Laterality Blood specimen Venipuncture / 04/14/2018 9:20 04/14/20 18 1:49 (specimen) Unknown AM RADIO SURVEY WORKER PM RADIO SURVEY WORKER Santos Krishna MD LAB - BLOOD ORDERABLES Performing Organization Address [facility] Phon [place] [address] [address] [facility] Vitamin A (04/14/2018 9:20 AM RADIO SURVEY WORKER) Analysis Performed At Patho logist Time Signature Vitamin A 0.75 0.30 - 04/17/2018 [facility] 1.20 mg/L 10:20 AM RADIO SURVEY WORKER LABORATORIES Vitamin A 0.06 0.00 - 04/17/2018 [facility] (Retinyl 0.10 mg/L 10:20 AM RADIO SURVEY WORKER LABORATORIES Palmitate) Vitamin A Normal 04/17/2018 [facility] Interp 10:20 AM RADIO SURVEY WORKER LABORATORIES Comment: Test developed and characteristics deter mined by [employer]. See Compliance Statement B : [email or web address] Performed by [employer], [address] [place] [address] [email or web address], Karlso Acosta MD, Lab. Director Specimen Anatomical Collection Method / Collection Time Recei nona Time (Source) Location / Volume Laterality Blood specimen Venipuncture / 04/14/2018 9:20 04/16/20 18 5:34 (specimen) Unknown AM RADIO SURVEY WORKER AM RADIO SURVEY WORKER Santos Krishna MD LAB - BLOOD ORDERABLES Performing Organization Address City/[facility]/ZIP Code Phon e Number [facility] LABS [employer] [place], [place] [phone] [address] [facility] [phone] [employer] [address] [address] Lipid Profile (04/14/2018 9:20 AM RADIO SURVEY WORKER) [facility] Method Time Signature Triglycerides 123 <=149 04/14/2018 HEALTH mg/dL 3:37 PM [facility] Cholesterol 177 <=199 04/14/2018 HEALTH mg/dL 3:37 PM [facility] LDL Cholesterol 96 <=129 04/14/[address] [facility] Calculated mg/dL 3:37 PM [facility] Direct Measure 56 >=40 04/14/[address] [facility] HDL mg/dL 3:37 PM [facility] Patient Fasting > Unknown 04/14/2018 HEALTH 8hrs? 3:37 PM [facility] Specimen Anatomical Collection Method / Collection Time Recei nona Time (Source) Location / Volume Laterality Blood specimen Venipuncture / 04/14/2018 9:20 04/14/20 18 1:48 (specimen) Unknown AM RADIO SURVEY WORKER PM RADIO SURVEY WORKER Santos Krishna MD LAB - BLOOD ORDERABLES Performing Organization Address City/[facility]/ZIP Code Phon [place] [address] [facility] [place] [address] [facility] (ABNORMAL) Comprehensive metabolic panel (04/14/2018 9:20 AM RADIO SURVEY WORKER) [facility] Method Time Signature Sodium 137 136 - 145 04/14/2018 HEALTH mmol/L 3:37 PM [facility] Potassium 4.5 3.5 - 5.0 04/14/2018 HEALTH mmol/L 3:37 PM [facility] Chloride 106 98 - 107 04/14/[address] [facility] mmol/L 3:37 PM [facility] Carbon Dioxide 20 (L) 22 - 31 04/14/2018 HEALTH (CO2) mmol/L 3:37 PM [facility] Anion Gap 11 5 - 18 04/14/[address] [facility] mmol/L 3:37 PM [facility] Glucose 153 (H) 70 - 125 04/14/[address] [facility] mg/dL 3:37 PM [facility] Urea Nitrogen 27 8 - 28 04/14/[address] [facility] mg/dL 3:37 PM [facility] Creatinine 1.18 0.70 - 04/14/2018 HEALTH 1.30 mg/dL 3:37 PM [facility] GFR Estimate If >60 >60 04/14/[address] [facility] Black mL/min/1.7 3:[address] LABORATORY GFR Estimate >60 >60 04/14/[address] [facility] mL/min/1.7 3:[address] LABORATORY Bilirubin Total 0.7 0.0 - 1.0 04/14/2018 HEALTH mg/dL 3:37 PM [facility] Calcium 9.7 8.5 - 10.5 04/14/2018 HEALTH mg/dL 3:37 PM [facility] Protein Total 7.0 6.0 - 8.0 04/14/2018 HEALTH g/dL 3:37 PM [facility] Albumin 3.8 3.5 - 5.0 04/14/[address] [facility] g/dL 3:37 PM RADIO SURVEY WORKER [facility] Alkaline 89 45 - 120 04/14/2018 HEALTH Phosphatase U/L 3:37 PM RADIO SURVEY WORKER [facility] AST 23 0 - 40 U/L 04/14/2018 HEALTH 3:37 PM RADIO SURVEY WORKER [facility] ALT 21 0 - 45 U/L 04/14/[address] [facility] 3:37 PM RADIO SURVEY WORKER [facility] Specimen Anatomical Collection Method / Collection Time Recei nona Time (Source) Location / Volume Laterality Blood specimen Venipuncture / 04/14/2018 9:20 04/14/20 18 1:48 (specimen) Unknown AM RADIO SURVEY WORKER PM RADIO SURVEY WORKER Narrative O LAB - 04/14/2018 3:37 PM RADIO SURVEY WORKER Fasting Glucose reference range is 70-99 mg/dL per [employer] (ADA) addie rojas. Santos Krishna MD LAB - BLOOD ORDERABLES Performing Organization Address City/[facility] Phon e Number [facility] [place] [address] [address] [facility] [address] [place] [address], [facility] Ferritin (04/14/2018 9:20 AM RADIO SURVEY WORKER) P athologist Signature Ferritin 35 27 - 300 04/14/[address] [facility] ng/mL 2:54 PM [facility]IO SURVEY WORK[facility] Specimen Anatomical Collection Method / Collection Time Recei nona Time (Source) Location / Volume Laterality Blood specimen Venipuncture / 04/14/2018 9:20 04/14/20 18 1:48 (specimen) Unknown AM RADIO SURVEY WORKER PM RADIO SURVEY WORKER Santos Krishna MD LAB - BLOOD ORDERABLES Performing Organization Address City/[facility] Phon e Number [facility] [place] [address] [phone] [address] [facility] documented in this encounter Visit Diagnoses Diagnosis Postsurgical malabsorption Other and unspecified postsurgical nonab sorption S/P bariatric surgery Bariatric surgery status Intestinal malabsorption, unspecified documented in this encounter Care Teams Electrical Engineering Designer Relationship Specialty Start Date End Date Benjamin Henao MD PCP - General Internal Medicine 07/24/16 [address] [place] [address] documented as of this encounter
--- OUTSIDE RECORDS SUMMARY | 2022-01-01 11:47 | XMS_ITS | Encounter Summary ---
:1945 Author Organization [facility] Address [address] [place] [address] Care Team Providers Name Role Phone Benjamin Henao MD Primary Care Provider Encounter Details Date Type Department Care Team Description 10/22/2018 [facility] [address] [place] [address] Social History Tobacco Use Types [...] on filedocumented in this encounter Care Teams Lithograph Printer Relationship Specialty Start Date End Date Benjamin Henao MD PCP - General Internal Medicine 07/24/16 [address] [place], [place] [id number] documented as of this encounter
--- OUTSIDE RECORDS SUMMARY | 2022-01-01 11:48 | XMS_ITS | Encounter Summary ---
:1945 Author Organization [facility] Address [address] [place] [id number] Care Team Providers Name Role Phone Benjamin Henao MD Primary Care Provider Reason for Visit Reason Comments Nutrition Counseling Encounter Details Date Type Department Care Team Description 12/07/2016 Office Visit - [facility] Provider, Obesity, morbid, BMI 50 or higher (H); [facility] and Historical Nutrition al counseling Bariatrics Care [facility] [address] [place] [phone] Social History Tobacco Use Types Packs/Day Years [...] - Inhaled Oxygen Concentration - - Weight 142.9 kg (315 lb) 12/07/2016 9:00 AM CDT Height 154.3 cm (5' 0.75) 12/07/2016 9:00 AM CDT Body Mass Index 60.01 12/07/2016 9:00 AM CDT documented in this encounter Progress Notes Historical Provider - 12/07/2016 9:30 AM CDT Follow Up Surgical Weight Loss Supervised Diet Evaluation Assessment: Pt presents for follow up supervised diet visit with RD. This patient is a 71 y.o. He is being seen today for follow-up nutritional evaluation. Faith Adames has been unsuccessful with non-surgical weight loss methods and is interested in bariatric surgery. Today we reviewed the patients current eating habits and level of physical activity, and instructed on the changes that are required for successful bariatric outcomes. Workflow review: Pt has not attended support group, psych f/u apt scheduled, lab work complete. Weight goal: at or below initial. Pt's Initial Weight: 319.6 lbs Weight: 315 lb (142.9 kg) Weight loss from initial: 4.6 % Weight loss: 1.44 % Body mass index is 60.01 kg/(m^2). Calculated RMR (Coffey-St Jeor equation): 2035 calories Progress made since last visit: Pt reports [place]. Since last month, pt reports reducing bread intake, and having variable days in diet. Pt believes weight gain may be due to salt intake from still eating good quantities of cheese. Concerns: Pt reports having good understanding of nutritional habits and is prepared for bariatric surgery, however there are a few dietary habits that need to be implemented over the next month, such as limiting carb intake (15-20 grams/meal), eating adequate protein (20-30 grams/meal), eliminating coffee, slow meal pace/practice chewing foods well, and fluids. Diet Recall/Time: Breakfast: 2 eggs, toast, banana, cherries (14g) Am Snack: none Lunch: sandwich, soup, vegetables, cheese, cookie, cherries (15g) Pm snack: 1 egg (7g) Dinner: 2 cups lasagna, potatoes, salad, olives, watermelon, cherries (20 grams) HS Snack: ice cream, fruit Per Diet recall estimated protein: 60-70 grams Meals per week away from home: 0-1x/week Recommended limiting eating out to no more than 2x/week. Patient and I reviewed the importance of eating three consistent meals per day; as well as meal timing to be spaced 4-5 hours apart. Snack choices: 100-150 calories (1-2x/day if physically hungry), incorporating a fruit/vegetable w/ protein source. Meal Duration:not keeping track- Pt trying to chew foods well. Encouraged slowing meal times down, 20-30 minutes, chewing to applesauce consistency. Portion Sizes problematic? Yes Per patient/diet recall To aid in proper portion control and slow meal time down discussed consuming meals off smaller plates, use toddler/children utensils and set utensils down after each bite. Protein, vegetables/fruits, carbohydrates: The patient and I discussed the importance of including lean/low fat protein at each meal and limiting carbohydrate intake to less than 25% of plate volume. Vitamins Post-op vitamin regimen: Multi Vit + iron 2x/day, calcium citrate 500-600 mg 2x/day, 3357-4889 mcg of Sublingual B-12 daily, and 5000 IU Vitamin D3 daily. Beverages (Type/Oz. per day) Water: 60-80 oz Coffee: none or 2 cups Tea: none Milk: none Regular soda: none Diet soda: noen Juice: none Everett-Aid/lemonade/etc: none Alcohol: none Discussed the importance of adequate hydration after surgery and the goal of 64+ oz of fluid daily. The patient understands the importance of avoiding all carbonated, caffeinated and sweetened drinks;and instead choose 64 oz plain water. Fluid-meal separation: Pt is not working on fluids 30min before and 30 minutes after meals. Fluids are not 30min before and 30 minutes after meals. Exercise Pt goes on treadmill for 60-90 minutes 3-5x/week. Pt's understands that 30-60 minutes of daily activity is an important part of bariatric surgery success. Encouraged pt to incorporate upper body strength training exercise, even if its lifting soup cans while watching TV at night, doing pushups/sit-ups, and abdominal work. PES statement: 1. (NI-1.3)Excessive energy intake related to Food and nutrition related knowledge deficit concerning excessive energy/oral intake as evidenced by Intake of high caloric density foods at meals and/or snacks; large portion; Estimated intake that exceeds estimated daily energy intake; and BMI 60. Intervention: Discussion: 1. Reviewed the [place] [facility] to Bariatric Success handout. 2. Reviewed lean protein sources and recommended to consume 15-20gm protein at 3 meals daily. 3. Gave pt Check Your Understanding Quiz, and assessed readiness for change. 4. Educated on pre/post-op diet progression, post-op vitamin regimen, gave review of surgery process. 5. Dumping syndrome: choosing foods with less than 5-10gm fat/sugar per serving to avoid dumping syndrome for RNY pts. 6. Bariatric Plate: The patient and I discussed the importance of including lean/low fat protein at each meal and limiting carbohydrate intake to less than 25% of plate volume. Instructions/Goals: 1. Include 15-20gm protein at each meal. 2. Increase vegetable/fruit intake, by having a vegetable or fruit with each meal daily. Recommendedpt to increase vegetable/fruit intake to 4-5 servings daily. 3. Increase fluid intake to 64oz daily: choose plain or calorie/carbonation-free beverages. 4. Incorporate daily structured activity, 30-60 minutes most days of the week 5. Practice plate method: 1/2 plate lean/low fat protein source, vegetable/fruit, <25% of plate complex carbohydrates. 6. Read food labels more consistently: keeping total fat grams <10, total sugar grams <10, fiber >3gm per serving. 7. Separate fluids 30 minutes before/after meal times. 8. Practice eating off of smaller plates/bowls, chewing to applesauce consistency, taking 20-30 minutes to eat in a calm/relaxed environment without distractions of tv/email/cell phone. Handouts provided: Pt. [facility] Bariatric Care Patient Handbook Monitor/Evaluation: Pt understands the importance of not gaining any weight from initial recorded weight. Has realistic expectations for weight loss: Yes Verbalizes understanding of dietary changes post procedure: Yes Verbalizes understanding of supplement needs: Yes Verbalizes willingness to participate in physical activity: Yes Motivation for change: average Client???s predicted compliance on a scale of 1 (low) to 10 (high): 7 RD???s prediction for client success and compliance on a scale of 1 (low) to 10 (high): 7 Pt has made the necessary changes, and is knowledgeable and well-informed of the dietary and physical activity requirements that are necessary for successful bariatric outcomes. This Pt is an appropriate candidate for surgery from a nutrition standpoint at this time. The patient understands that surgery is a tool, and not a cure, and our aftercare program must be followed. Time In: 9:30am Time Out: 10:00am ABN signed: Yes documented in this encounter Plan of Treatment Not on filedocumented as of this encounter Visit Diagnoses Diagnosis Obesity, morbid, BMI 50 or higher (H) Nutritional counseling documented in this encounter Care Teams Graining Press Operator Relationship Specialty Start Date End Date Benjamin Henao MD PCP - General Internal Medicine 07/24/16 [address] [place] [address] documented as of this encounter
--- OUTSIDE RECORDS SUMMARY | 2022-01-01 11:48 | XMS_ITS | Encounter Summary ---
:1945 Author Organization [facility] Address [address] [place] [id number] Care Team Providers Name Role Phone Benjamin Waller MD Primary Care Provider Reason for Visit Reason Comments Pre-Op Exam 05/01/17 - bariatric surgery - [facility] - Dr. Grant Other Other; pt need ekg and Chest xray Encounter Details Date Type Department Care Team Description 04/08/2017 Office Visit - [facility] Benjamin Valentin, Pre- op exam; [facility] Jose R FORTUNE Pre-operative clearance; [facility] [address] Diabetes mellitus due to und erlying condition with hyperglycemia (H); [address] Other disorders of arteries, arterioles and capillaries in diseases classified elsewhere (H) [place] [phone] Social History Tobacco Use Types Packs/Day Years [...] - Inhaled Oxygen Concentration - - Weight 145.2 kg (320 lb) 04/08/2017 12:45 PM POSTBED STITCHER Height - - Body Mass Index 48.66 02/05/2017 10:41 AM CDT documented in this encounter Progress Notes Benjamin Waller MD - 04/08/2017 12:40 PM CST Assessment/Plan: Visit for Preoperative Exam. Patient approved for surgery with general or local anesthesia. Recommend holding ASA/NSAIDS 7 days prior to surgery. Hold metformin AM of and evening prior to surgery. Hold Novolog day of surgery. Postoperative pain to be managed by surgeon during post-operative Global Surgical Package timeframe, typically 30-60 days for major surgery, and less for others. Postoperative Care will be managed by Hospital Service. Labs will be done as indicated. Above recommendations were reviewed with the patient. Follow up as needed. EKG shows normal sinus rhythm, no ST or T-wave changes. Check a chest x-ray as per surgeon recommendations. We will draw a CBC, CMP, UA, INR, and PTT. Subjective: Scheduled Procedure: laparascopic gastric bypass Surgery Date: 05/01/17 Surgery Location: [facility] Surgeon: Dr. Grant ASSESSED PROBLEMS: Problem List Items Addressed This Visit None CHIEF COMPLAINT: Chief Complaint Patient presents with ??? Pre-op Exam 05/01/17 - bariatric surgery - [facility] - Dr. Grant HISTORY OF PRESENT ILLNESS: Faith Adames is a 71 y.o. year-old male here for an internal medicine pre-operative consultation. The exam is requested by Dr. Grant in preparation for gastric bypass surgery to be performed at [facility] on 05/01/17. Today???s examination on 04/08/17 is done to review the underlying surgical condition of obesity , clear for anesthesia, and review medical problems with appropriate changes in medications. Faith has been dealing with obesity for many years and has tried many different diets, all with little success. He has multiple comorbid conditions associated with this including diabetes, hyperlipidemia, and hypertension. He is going to undergo Falguni-en-Y gastric bypass. Faith Adames has tolerated previous surgeries well without bleeding or anesthesia difficulty. ................................................................................ ............................................................. Current Outpatient Prescriptions Medication Sig Dispense Refill ??? aspirin 81 mg chewable tablet Chew 81 mg daily. ??? atenolol (TENORMIN) 50 MG tablet Take 50 mg by mouth daily. As directed. ??? atorvastatin (LIPITOR) 40 MG tablet ??? cetirizine (ZYRTEC) 10 mg cap Take 1 tablet by mouth daily. ??? cholecalciferol, vitamin D3, (VITAMIN D3) 5,000 unit Tab Take 1 tablet (5,000 Units total) by mouth daily. 100 tablet 3 ??? cyanocobalamin (VITAMIN B-12) 500 MCG tablet Take 1 tablet (500 mcg total) by mouth every other day. 60 tablet 0 ??? folic acid (FOLVITE) 1 MG tablet Take 1 mg by mouth daily. As directed. ??? insulin aspart (NOVOLOG FLEXPEN) 100 unit/mL injection pen 20 Units 3 (three) times a day beforemeals. NovoLOG FlexPen 100 UNIT/ML Subcutaneous Solution Pen-injector. Inject three times daily withmeal, currently up to 100 units daily. Adjust per physician orders. ??? insulin glargine (LANTUS SOLOSTAR) 100 unit/mL (3 mL) InPn Inject 65 Units under the skin at bedtime. Or as directed. ??? losartan (COZAAR) 50 MG tablet ??? metFORMIN (GLUCOPHAGE) 1000 MG tablet Take 1,000 mg by mouth 2 (two) times a day with meals. ??? omeprazole (PRILOSEC) 20 MG capsule Take 20 mg by mouth daily. ??? pediatric multivitamin (FLINTSTONES) Chew chewable tablet Chew 1 tablet 2 (two) times a day. ??? sildenafil (VIAGRA) 100 MG tablet Take 1 tablet (100 mg total) by mouth as needed for erectile dysfunction. 28 tablet 3 ??? [START ON 04/10/2017] ursodiol (ACTIGALL) 300 mg capsule Take 1 capsule (300 mg total) by mouth 2 (two) times a day. Start 2 wks after surgery. Do not open capsule. Swallow whole with warm water. 180 capsule 1 No current facility-administered medications for this visit. Allergies Allergen Reactions ??? Cat Dander ??? Lisinopril Cough Immunization History Administered Date(s) Administered ??? DT (pediatric) 04/22/2000 ??? Influenza [id number], 02/20/2009 ??? Influenza high dose, seasonal 01/21/2015, 01/11/2017 ??? Influenza, Seasonal, Inj PF IIV3 01/05/2013, 01/07/2014 ??? Influenza, inj, historic,unspecified 12/21/2008 ? ? Pneumo Conj 13-V (2010&after) 05/19/2014 ??? Pneumo Polysac 23-V 06/13/2015 Patient Active Problem List Diagnosis ??? Benign Adenomatosis Of The Large Intestine ??? Insomnia ??? Obesity ??? Type 2 diabetes mellitus ??? 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 Colonic Diverticulosis ??? Coronary Artery Disease ??? Hyperlipidemia ??? Hypertension ??? Esophageal Reflux ??? Obstructive sleep apnea ??? Benign Prostatic Hypertrophy ??? Microalbuminuria ??? Microcytic anemia Past Medical History: Diagnosis Date ??? Diabetes mellitus type 2 ??? GERD (gastroesophageal reflux disease) better with prilosec ??? Heart disease ??? Hyperlipemia ??? Hyperlipidemia ??? Hypertension ??? Intestinal polyps every 5 years, next due in 2021. ??? Pneumonia 2015. ??? Sleep apnea use cpap Social History Social History ??? Marital status: Spouse name: N/A ??? Number of children: N/A ??? Years of education: N/A Occupational History ??? Not on file. Social History Main Topics ??? Smoking status: Former Smoker Quit date: 09/28/1989 ??? Smokeless tobacco: Never Used Comment: quit 27 yrs ago as of 09/28/2016 ??? Alcohol use Yes Comment: 0-1 per month ??? Drug use: No ??? Sexual activity: Yes Other Topics Concern ??? Not on file Social History Narrative No past surgical history on file. Pertinent History Prior Anesthesia: yes Previous Anesthesia Reaction: no Diabetes: yes Cardiovascular Disease: yes Pulmonary Disease: no Renal Disease: no GI Disease: yes, GERD Sleep Apnea: yes Thromboembolic Problems: no Clotting Disorder: no Bleeding Disorder: no Transfusion Reaction: n/a Impaired Immunity: no Steroid use in the last 6 months: no Frequent Aspirin use: yes Family history of MA, Stroke and sudden , clotting disorder Social history of patient does not wear denture or partial plates, there is no transfusion refusal and there are no concerns regarding care after surgery After surgery, the patient plans to recover at home with family. Review of Systems A 12 point comprehensive review of systems was negative except as noted. Objective: There were no vitals filed for this visit. Wt Readings from Last 3 Encounters: 02/05/17 (!) 316 lb (143.3 kg) 01/11/17 (!) 312 lb (141.5 kg) 12/07/16 (!) 315 lb (142.9 kg) Physical Exam: Constitutional: Reveals a alert, pleasant male in no acute distress. Vitals: as per nursing notes. There is no height or weight on file to calculate BMI. Head: Normocephalic, without obvious abnormality, atraumatic Eyes: PERRL, conjunctiva/corneas clear, EOM's intact Ears: Normal TM's and external ear canals, both ears Throat: Lips, mucosa, and tongue normal; teeth and gums normal Neck: Supple, symmetrical, trachea midline, no adenopathy; thyroid: not enlarged, symmetric, no tenderness/mass/nodules; no carotid bruit or JVD Back: Symmetric, no curvature, ROM normal, no CVA tenderness Lungs: Clear to auscultation bilaterally, respirations unlabored Heart: Regular rate and rhythm, S1 and S2 normal, no murmur, rub, or gallop, Abdomen: Soft, non-tender, bowel sounds active all four quadrants, no masses, no organomegaly Musculoskeletal: Normal range of motion. No joint swelling or deformity. Extremities: Extremities normal, atraumatic, no cyanosis or edema Neurologic: Alert and normal reflexes. Psychiatric:Normal mood and affect. BED STITCHER documented in this encounter Miscellaneous Notes Addendum Note - Chrissy Cohn - 04/08/2017 2:24 PM CST Addendum Note by Chrissy Waller CMA at 04/08/2017 2:24 PM Author: Chrissy Waller CMA Service: -- Author Type: Coding Analyst Filed: 04/08/2017 2:24 PM Encounter Date: 04/08/2017 Status: Signed Farmer And Grazier: Chrissy Waller CMA (Coding Analyst) Addended by: CHRISSY WALLER on: 04/08/2017 02:24 PM Modules accepted: Orders BED STITCHER documented in this encounter Plan of Treatment Not on filedocumented as of this encounter Procedures Procedure Name Priority Date/Time Associated Diagnosis Comme nts EKG 12-LEAD, TRACING Routine 04/08/2017 Results for this ONLY procedure are i n the results section . documented in this encounter Results EKG 12-lead, tracing only (04/08/2017) [facility] gist Method Time Signature Systolic Blood mmHg 04/08/2017 HE RADIANT Pressure 2:20 PM CONVERSION POSTBED STITCHER Diastolic Blood mmHg 04/08/2017 HE RADIANT Pressure 2:20 PM CONVERSION POSTBED STITCHER Ventricular Rate 61 BPM 04/08/2017 HE [facility]IANT 2:20 PM CONVERSION POSTBED STITCHER Atrial Rate 61 BPM 04/08/2017 HE RAD[facility]ANT 2:20 PM CONVERSION POSTBED STITCHER MI Interval 202 ms 04/08/2017 [facility]ANT 2:20 PM CONVERSION POSTBED STITCHER QRS Duration 84 ms 04/08/2017 [facility]ANT 2:20 PM CONVERSION POSTBED STITCHER QT 380 ms 04/08/2017 HE RADIANT 2:20 PM CONVERSION POSTBED STITCHER QTc 382 ms 04/08/2017 HE RADIANT 2:20 PM CONVERSION POSTBED STITCHER P [place] 73 degrees 04/08/2017 HE RADIANT 2:20 PM CONVERSION POSTBED STITCHER R AXIS -46 degrees 04/08/2017 HE RADIANT 2:20 PM CONVERSION POSTBED STITCHER T [place] -18 degrees 04/08/2017 HE [facility]IANT 2:20 PM CONVERSION POSTBED STITCHER Interpretation Normal sinus rhythm 04/08/2017 HE R ADIANT ECG Left axis deviation 2:20 PM CONVERSION Minimal voltage criteria for LVH, may be normal variant POSTBED STITCHER Inferior infarct , age undetermined Abnormal ECG No previous ECGs available Confirmed by SARA ??CLIVE FORTUNE LOC:JN ([id number]) on 03/22 2:20:08 PM Specimen (Source) Anatomical Collection Method Collection Time Re ceived Time Location / / Volume Laterality 04/08/2017 04/08/2017 2:20 PM POSTBED STITCHER Benjamin Waller MD ECG ORDERABLES Performing Organization Address City/State/ZIP Code Phon e Number HE CARDIOLOGY CONVERSION HE [facility] CONVERSION documented in this encounter Visit Diagnoses Diagnosis Pre-op exam Preoperative examination, unspecified Pre-operative clearance Preoperative examination, unspecified Diabetes mellitus due to underlying cond ition with hyperglycemia (H) Secondary diabetes mellitus with other s pecified manifestations, not stated as uncontrolled, or unspecified Other disorders of arteries, arterioles and capillaries in diseases classified elsewhere (H) documented in this encounter Care Teams Tube Repairer Relationship Specialty Start Date End Date Benjamin Waller MD PCP - General Internal Medicine 07/24/[address] [place] [phone] documented as of this encounter
--- OUTSIDE RECORDS SUMMARY | 2022-01-01 11:48 | XMS_ITS | Encounter Summary ---
:1945 Author Organization [facility] Address [address] [place] [address] Care Team Providers Name Role Phone Benjamin Henao MD Primary Care Provider Reason for Visit Reason Comments Weight Problem Initial Consult Encounter Details Date Type Department Care Team Description 02/05/2017 Office Visit - [facility] Naresh Grant MD Type 2 diabetes mellitus (H); [facility] [address] [place] [address] Obstructive sleep apnea; and Bariatrics RD Gastroesophageal reflux disease without esophagitis; Care [place], [place] Morbid obesity (H); [facility] [address] Essential hypertension [place] [address] [place], [place] (Work) [phone] Social History Tobacco Use [...] - Inhaled Oxygen Concentration - - Weight 143.3 kg (316 lb) 02/05/2017 10:41 AM CDT Height 172.7 cm (5' 8) 02/05/2017 10:41 AM CDT Body Mass Index 48.05 02/05/2017 10:41 AM CDT documented in this encounter Progress Notes Naresh Grant MD - 02/05/2017 10:45 AM CDT HPI: Faith Adames is a 71 y.o. male who I saw back in September/2016 for evaluation of bariatric surgery. At that time we decided to move forward with the program and he is now completed his dietary requirements as well as his psychological evaluation. He is cleared to proceed with surgery. Please see my note from September for further details of his past medical history. He states he has been no changeto his medical history other than that his A1c is improved. Allergies:Cat dander and Lisinopril Past Medical History: Diagnosis Date ??? Diabetes mellitus type 2 ??? GERD (gastroesophageal reflux disease) better with prilosec ??? Heart disease ??? Hyperlipemia ??? Hyperlipidemia ??? Hypertension ??? Intestinal polyps every 5 years, next due in 2021. ??? Pneumonia 2014. ??? Sleep apnea use cpap History reviewed. No pertinent surgical history. CURRENT MEDS: Current Outpatient Prescriptions Medication Sig Dispense Refill [...] Brother reports that he quit smoking about 27 years ago. He has never used smokeless tobacco. He reports that he drinks alcohol. He reports that he does not use illicit drugs. Review of Systems - A 12 point ROS was reviewed and except for what is listed in the HPI above, all others are negative PSYCHIATRIC: He has undergone a lifestyle assessment and has been deemed a good candidate for bariatric surgery by the psychologist. BP 143/67 Pulse 66 Resp 18 Ht 5' 8 (1.727 m) Wt (!) 316 lb (143.3 kg) SpO2 100% BMI 48.05 kg/m2 Wt Readings from Last 3 Encounters: 02/05/17 (!) 316 lb (143.3 kg) 01/11/17 (!) 312 lb (141.5 kg) 12/07/16 (!) 315 lb (142.9 kg) Body mass index is 48.05 kg/(m^2). EXAM: GENERAL: This is a well-developed 71 y.o. male who appears his stated age LABS: Lab Results Component Value Date WBC 8.0 10/19/2016 HGB 12.2 (L) 10/19/2016 HCT 36.3 (L) 10/19/2016 MCV 81 10/19/2016 PLT 126 (L) 10/19/2016 INR/Prothrombin Time Lab Results Component Value Date HGBA1C 7.2 (H) 01/11/2017 Lab Results Component Value Date ALT 23 10/19/2016 AST 20 10/19/2016 ALKPHOS 78 10/19/2016 BILITOT 0.6 10/19/2016 Assessment/Plan: 71 y.o. male who is a good candidate for bariatric and metabolic surgery. After a careful conversation with the patient it was decided that a laparoscopic Falguni-en-Y gastric bypass would be his best option. I went over the surgery in detail with him. I went over the nature of the operation and some of the potential consequences of the surgery. I went over the expected hospital course and discussed laparoscopic versus open surgery, understanding that we will plan on doing this laparoscopically with the pos sibility of having to convert to an open operation. I went over some of the risks and complications of the operation including, but not limited to, DVT, pulmonary emboli, pneumonia, postoperative bleeding, wound infection, staple line leak, intra-abdominal sepsis, and possible . I also went over some of the potential nutritional concerns such as vitamin B-12, iron, vitamin D, vitamin A, calcium and protein deficiencies. I will also went over the need for lifelong nutritional surveillance. The patient understands and wants to proceed with surgery. We will submit for prior authorization. I spent 25 minutes with the patient and his outside of the exam and counseling. Counseling was majority of this visit. Naresh Grant MD [facility] Department of Surgery documented in this encounter Plan of Treatment Not on filedocumented as of this encounter Visit Diagnoses Diagnosis Type 2 diabetes mellitus (H) Type II or unspecified type diabetes mando litus without mention of complication, not stated as uncontrolled Obstructive sleep apnea Obstructive sleep apnea (adult) (pediatr ic) Gastroesophageal reflux disease without esophagitis Esophageal reflux Morbid obesity (H) Morbid obesity Essential hypertension Unspecified essential hypertension documented in this encounter Care Teams Production Assistant Relationship Specialty Start Date End Date Benjamin Henao MD PCP - General Internal Medicine 07/24/[address] [place] [id number] documented as of this encounter
--- OUTSIDE RECORDS SUMMARY | 2022-01-01 11:48 | XMS_ITS | Encounter Summary ---
:1945 Author Organization [facility] Address [address] [place] [address] Care Team Providers Name Role Phone Benjamin Henao MD Primary Care Provider Encounter Details Date Type Department Care Team Description 05/14/2017 [facility] Naresh Grant MD [facility] and [address] [place] [address] [place] [address] [place] [address] ([address] [place] [address] Social History Tobacco Use Types Packs/Day [...] on filedocumented in this encounter Care Teams Pharmacist Apprentice Relationship Specialty Start Date End Date Benjamin Henao MD PCP - General Internal Medicine 07/24/16 [address] [place], [place] [phone] documented as of this encounter
--- OUTSIDE RECORDS SUMMARY | 2022-01-01 11:48 | XMS_ITS | Encounter Summary ---
:1945 Author Organization [facility] Address [address] [place] [address] Care Team Providers Name Role Phone Benjamin Henao MD Primary Care Provider Encounter Details Date Type Department Care Team Description 04/08/2017 Records - [facility] [place], En counter for other Clinic Jose R Graham MD preprocedural [employer] [address] [id number] Social History Tobacco Use Types Packs/Day Years Used Date Former Smoker Quit: 08/27/18 90 Alcohol Use Standard Drinks/Week Comments Yes 0 (1 standard drink = 0.6 oz pure alcoho l) Sex Assigned at Date Recorded Not on file documented as of this encounter Plan of Treatment Not on filedocumented as of this encounter Procedures Procedure Name Priority Date/Time Associated Diagnosis Comme nts XR CHEST 2 VIEWS Routine 04/08/2017 1:38 PM Encounter for othe r Results for this SERGER preprocedural procedure are in examination the results section. documented in this encounter Results XR Chest 2 Views (04/08/2017 1:38 PM SERGER) Anatomical Region Laterality Modality Chest Digital Radiography Specimen (Source) Anatomical Location Collection Method / Collectio n Time Received Time / Laterality Volume Narrative 04/08/2017 3:24 PM SERGER XR CHEST 2 VIEWS 04/08/2017 1:38 PM INDICATION: Pre-op Bariatric Surgery Adriana luation COMPARISON: CT 04/28/2015 FINDINGS: Stable hiatal hernia. Lungs ar e clear. This report was electronically interpret ed by: Dr. Ej Chang MD ON 04/08/2017 at 15:24 Procedure Note Ej Chang MD - 09/27/2020Fo rmatting of this note might be different from the original. XR CHEST 2 VIEWS 04/08/2017 1:38 PM INDICATION: Pre-op Bariatric Surgery Adriana luation COMPARISON: CT 04/28/2015 FINDINGS: Stable hiatal hernia. Lungs ar e clear. This report was electronically interpret ed by: Dr. Ej Chang MD ON 04/08/2017 at 15:24 Santos Krishna MD IMG DIAGNOSTIC IMAGING ORDER SAMANTHA documented in this encounter Visit Diagnoses Diagnosis Encounter for other preprocedural examin ation documented in this encounter Care Teams Continuity Person Relationship Specialty Start Date End Date Benjamin Henao MD PCP - General Internal Medicine 07/24/16 [address] [place] [address] documented as of this encounter
--- OUTSIDE RECORDS SUMMARY | 2022-01-01 11:48 | XMS_ITS | Encounter Summary ---
:1945 Author Organization [facility] Address [address] [place] [id number] Care Team Providers Name Role Phone Benjamin Henao MD Primary Care Provider Encounter Details Date Type Department Care Team Description 05/01/2017 - Hospital Encounter [id number] Naresh Grant MD Type 2 diabetes 05/04/2017 MS/BARIATRIC/RENAL [address] mellitus with [address], [address] [address] unspecified [place], [place] [phone] term insulin use [id number] (Work) status (H) [phone] Social History Tobacco Use Types Packs/Day Years [...] - Inhaled Oxygen Concentration - - Weight 137.6 kg (303 lb 6.4 oz) 05/03/2017 11:06 AM CONTINUOUS TOWEL ROLLER Height 172.7 cm (5' 8) 05/01/2017 6:19 AM CONTINUOUS TOWEL ROLLER Body Mass Index 46.13 05/01/2017 6:19 AM CONTINUOUS TOWEL ROLLER documented in this encounter Discharge Summaries Juanita, Myrna Mascorro PA-C - 05/04/2017 10:28 AM CST Physician Discharge Summary Primary Care Physician: Benjamin Henao MD Discharge Provider: Myrna Grant PA-C Surgeon Dr Grant Admission Date: 05/01/2017 Discharge Date: 05/04/16 Primary Diagnosis at Discharge: Patient Active Problem List Diagnosis ??? Benign Adenomatosis Of The Large Intestine ??? Insomnia ??? Obesity ??? Type 2 diabetes mellitus ??? 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 Colonic Diverticulosis ??? Coronary Artery Disease ??? Hyperlipidemia ??? Hypertension ??? Esophageal reflux ??? Obstructive sleep apnea ??? Benign Prostatic Hypertrophy ??? Microalbuminuria ??? Microcytic anemia ??? S/P gastric bypass ??? Morbid obesity with BMI of 45.0-49.9, adult ??? Acute hemorrhage Disposition: Home or Self Care Condition at Discharge: Stable Surgery: LAPAROSCOPIC ELIZABETH-EN-Y BASTRIC BYPASS CONVERTED TO OPEN; SPLENECTOMY (N/A) Discharge Medications: Faith Adames Home Medication Instructions [id number] Printed on:05/04/17 1029 Medication Information aspirin 81 mg chewable tablet Chew 81 mg daily. atenolol (TENORMIN) 50 MG tablet Take 50 mg by mouth daily. As directed. atorvastatin (LIPITOR) 40 MG tablet Take 40 mg by mouth at bedtime. cetirizine (ZYRTEC) 10 mg cap Take 1 tablet by mouth daily. cholecalciferol, vitamin D3, (VITAMIN D3) 5,000 unit Tab Take 1 tablet (5,000 Units total) by mouth daily. CONTOUR TEST STRIPS strips cyanocobalamin (VITAMIN B-12) 500 MCG tablet Take 1 tablet (500 mcg total) by mouth every other day. folic acid (FOLVITE) 1 MG tablet Take 1 mg by mouth daily. As directed. insulin glargine (LANTUS SOLOSTAR) 100 unit/mL (3 mL) pen Inject 20 Units under the skin at bedtime. Or as directed. losartan (COZAAR) 50 MG tablet Take 50 mg by mouth daily. metFORMIN (GLUCOPHAGE) 1000 MG tablet Take 1,000 mg by mouth 2 (two) times a day with meals. MICROLET LANCET NOVOLOG 100 unit/mL injection Check blood sugar three (3) times daily. 11.9 Type 2 without complications Microlet Color Lancets (100s) - dispense 1, refill PRN for 1 year BD Ultra-fine 6 mm 31G 1 mL syringe - [facility] [id number] - dispense 1 case, refill PRN for 1 year omeprazole (PRILOSEC) 20 MG capsule Take 20 mg by mouth daily. pediatric multivitamin (FLINTSTONES) Chew chewable tablet Chew 1 tablet 2 (two) times a day. sildenafil (VIAGRA) 100 MG tablet Take 1 tablet (100 mg total) by mouth as needed for erectile dysfunction. traMADol (ULTRAM) 50 mg tablet Take 2 tablets (100 mg total) by mouth every 6 (six) hours. ursodiol (ACTIGALL) 300 mg capsule Take 1 capsule (300 mg total) by mouth 2 (two) times a day. Start 2 wks after surgery. Do not open capsule. Swallow whole with warm water. Discharge Instructions: Follow up appointment with Primary Care Physician: Benjamin Henao MD Follow up appointment with Dr Grant in: 2 weeks Post operative instructions: Diet: ?? For two weeks following your surgery or until you meet with the cork insulation setter, you will be on a full liquid diet. It is extremely important to follow the liquid diet to allow for optimal healing and to prevent food from becoming lodged at the pouch outlet. ?? Protein is an important part of the diet after surgery; therefore, it is necessary to drink fluids that are high in protein. Proteins are building blocks that help you heal after surgery and help preserve your muscle mass while you are losing weight. ?? Including carbohydrates in the diet is also important after surgery to prevent your body from burning fat for energy (Ketosis). These carbohydrates include: unsweetened applesauce, blended canned fruit(in its own juice), Stage I baby food fruit, thin cream of wheat, light yogurt (no fruit chunks), or100% fruit juice diluted (50% juice/50% water). ?? Remember to take 1 Multivitamin with Iron 2 times daily and 1000 mcg of Sublingual B-12 daily. ?? Do NOT take any calcium or vitamin D supplements unless directed by your surgeon for the next 3 weeks (dietitian will remind you when to start these). ?? Aim for 40-50 grams of protein daily during this week. ?? Sip 48-64 ounces of liquid per day in addition to full liquid meals/supplements. ?? After 2 weeks of the full liquid diet, you will advance to the pureed diet, as instructed. ?? Activity: You should continue to be active at home including ambulating frequently. If possible try to limit the amount of time spent in bed. ?? Restrictions: you should avoid lifting anything more than 20 pounds or strenuous physical activity for a total of 2 weeks. This is to help reduce the risk of hernia formation at your port sites. Walking does not count as strenuous physical activity. You are safe to walk up and down stairs. Following 2weeks he may resume all normal physical activity. ?? Wound / drain care:You may remove your outer dressings after a period of 48 hours. The small white strips on the incisions act like artificial scabs, and will begin to peel at the edges at around 7-10 days. These can then be removed. ?? Bathing: You may shower after 48 hours from surgery. It is ok to get your incisions wet, but avoid rubbing them. Avoid soaking in bath tubs, or swimming in lakes, pools, or streams for 4 weeks following surgery. Hospital Summary: Patient is brought in through preop and taken to the operating room for their surgery. 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 The patient did well in the early postoperative period. They were able to advance his diet and will be discharged home today. Eating well, urinating on own. g tube and jose francisco tube removed. Physical Exam: BP 146/66 (Patient Position: Lying) Pulse 69 Temp 98.3 ??F (36.8 ??C) (Oral) Resp 20 Ht 5' 8 (1.727 m) Wt (!) 303 lb 6.4 oz (137.6 kg) SpO2 92% BMI 46.13 kg/m2 CTA RRR Ab Soft Dressings/wounds are Clean and Dry Myrna Grant PA-C [facility] [address] [place] [id number] INUOUS TOWEL ROLLER Bonny, Yadira Kim MD - 05/04/2017 9:54 AM CST [facility] MEDICINE DISCHARGE SUMMARY Primary Care Physician: Benjamin Henao MD Admission Date: 05/01/2017 Discharge Provider: Yadira Draper Discharge Date: 05/04/2017 Diet: per surgery post op Code Status: Full Code Activity: activity as tolerated Condition at Discharge: Good REASON FOR PRESENTATION(See Admission Note for Details) Elective gastric bypass surgery PRINCIPAL & ACTIVE DISCHARGE DIAGNOSES Principal Problem: S/P gastric bypass Active Problems: Type 2 diabetes mellitus Hypertension Obstructive sleep apnea Morbid obesity with BMI of 45.0-49.9, adult Acute hemorrhage SIGNIFICANT FINDINGS (Imaging, labs): PENDING LABS PROCEDURES ( this hospitalization only) LAPAROSCOPIC ELIZABETH-EN-Y BASTRIC BYPASS CONVERTED TO OPEN; SPLENECTOMY RECOMMENDATION FOR F/U VISIT pcp DISPOSITION Home SUMMARY OF HOSPITAL COURSE: 71-year-old male with past medical history of sleep apnea on CPAP hypertension, hyperlipidemia gastroesophageal reflux disease type 2 diabetes mellitus coronary artery disease BPH who underwent laparoscopic Elizabeth-en-Y gastric bypass converted to open and splenectomy, patient had 2 PRBC transfusion intraoperatively for bleeding and looks like he had 2.8 L blood loss for intraoperative note. Patient wasadvised to continue taking Lantus 20 units and sliding scale insulin beside metformin rest of the medication adjusted by bariatric surgery. At the time of discharge vitals stable condition improved significantly ?? Discharge Medications with Med changes: Medication List START taking these medications NovoLOG 100 unit/mL injection Quantity: 10 mL Generic drug: insulin aspart Check blood sugar three (3) times daily. 11.9 Type 2 without complications Microlet Color Lancets (100s) - dispense 1, refill PRN for 1 year BD Ultra-fine 6 mm 31G 1 mL syringe - [facility] [id number] - dispense 1 case, refill PRN for 1 year Replaces: NovoLOG Flexpen 100 unit/mL injection pen traMADol 50 mg tablet Quantity: 30 tablet Dose: 100 mg Commonly known as: ULTRAM 100 mg, Oral, Q6H CHANGE how you take these medications insulin glargine 100 unit/mL (3 mL) pen Quantity: 5 adj dose pen Dose: 20 Units Commonly known as: LANTUS SOLOSTAR 20 Units, Subcutaneous, QHS, Or as directed. What changed: how much to take CONTINUE taking these medications aspirin 81 mg chewable tablet Dose: 81 mg 81 mg, DAILY atenolol 50 MG tablet Dose: 50 mg Commonly known as: TENORMIN 50 mg, DAILY atorvastatin 40 MG tablet Dose: 40 mg Commonly known as: LIPITOR 40 mg, Oral, QHS cholecalciferol (vitamin D3) 5,000 unit Tab Quantity: 100 tablet Dose: 5000 Units Commonly known as: VITAMIN D3 5,000 Units, Oral, DAILY CONTOUR TEST STRIPS strips Generic drug: blood glucose test No dose, route, or frequency recorded. cyanocobalamin 500 MCG tablet Quantity: 60 tablet Dose: 500 mcg Commonly known as: vitamin B-12 500 mcg, Oral, Every Other Day folic acid 1 MG tablet Dose: 1 mg Commonly known as: FOLVITE 1 mg, DAILY losartan 50 MG tablet Dose: 50 mg Commonly known as: COZAAR 50 mg, Oral, DAILY metFORMIN 1000 MG tablet Dose: 1000 mg Commonly known as: GLUCOPHAGE 1,000 mg, BID with meals MICROLET LANCET Generic drug: generic lancets No dose, route, or frequency recorded. pediatric multivitamin Chew chewable tablet Dose: 1 tablet Commonly known as: FLINTSTONES 1 tablet, Oral, BID PriLOSEC 20 MG capsule Dose: 20 mg Generic drug: omeprazole 20 mg, DAILY sildenafil 100 MG tablet Quantity: 28 tablet Dose: 100 mg Commonly known as: VIAGRA 100 mg, Oral, PRN ursodiol 300 mg capsule Quantity: 180 capsule Dose: 300 mg Commonly known as: ACTIGALL 300 mg, Oral, BID, Start 2 wks after surgery. Do not open capsule. Swallow whole with warm water. ZyrTEC 10 mg Cap Dose: 1 tablet Generic drug: cetirizine 1 tablet, DAILY STOP taking these medications NovoLOG Flexpen 100 unit/mL injection pen Generic drug: insulin aspart Replaced by: NovoLOG 100 unit/mL injection Rationale for medication changes: Consults Hospital medicine Immunizations given this encounter Discharge Orders (AVS) Additional Patient Discharge Instructions Order Comments: Instructions for Your Obstructive Sleep Apnea ([place]) After Discharge. Use your sleep apnea device (e.g. CPAP, BiPAP, oral device, etc.) anytime you sleep or nap for the first 48 hours after your procedure. Have a responsible adult stay with you for the first 24 hours after discharge home to help keep you safe. Questions about your anesthetic? Please visit [facility] ([facility]) website ([email or web address]) or call the [facility] nurse line at [phone]. Activity as tolerated Order Comments: Rest when tired Call MD: if symptoms get worse Call MD for: redness or swelling Call MD: if pain or burning when you urinate Call MD for: difficulty breathing, headache or visual disturbances Call MD for: temperature greater than 101 Call MD for: severe uncontrolled pain Call MD for: constipation (difficulty having a bowel movement) Call MD for: dizziness, persistent nausea or vomiting Call MD for: weight gain - more than two pounds in a day or five pounds in a week Discharge Follow Up - Primary Care Clinic Order Specific Question Answer Comments Follow-up in: 3-5 days Discharge diet: Phase II: Full liquid diet, room temperature with one protein shake per day. Goal water intake: 40oz per day by post-operative day #4. Meet with Bariatric Dietitian in 1 week to discussdietary changes. Do not drive Order Comments: Do NOT drive until after you have been completely off narcotics for a minimum of 24 hours Weight Restrictions Order Comments: Do not lift over 20 pounds for 2 weeks May return to work in: Order Comments: 2 weeks if cleared by surgeon Wash your hands with soap and warm water before you touch the site of surgery. Shower/Bathing - Restrictions Order Comments: Okay to shower. Do NOT soak in tub for 2-4 weeks. Call your doctor if: Pain is not controlled by pain medicine or pain that suddenly increases Call your doctor if: You develop a fever greater than 101 and/or chills 24 hours after surgery. Call your doctor if: Redness or bad smelling drainage at the surgery sites. Call your doctor if: A large amount of bleeding from the surgery site that does not stop when moderate pressure is applied Call your doctor if: Unable to pass urine within 8-10 hours after surgery Call your doctor if: Upset stomach or vomiting lasting more than a day. Call your doctor if: Skin reaction to tape or dressing such as redness, itching or rash at the surgery site. Pills should be no greater than 1/4 inch (6mm) for the first 6 weeks after surgery. Use pill cutter at home. Please see your bariatric surgeon for your 2 week follow-up appointment: Order Comments: Call your surgeon's office with any questions or concerns. Please see your bariatric dietitian for your 1 week follow-up appointment: POCT Glucose AC and HS (If hypoglycemic or repeated blood glucose less than 90 mg/dl, decrease the previous dose of insulin by half) Order Comments: If hypoglycemic or repeated blood glucose less than 90 mg/dl, decrease the previous dose of insulin by half Examination No pain nausea vomiting Vital Signs in last 24 hours: Temp: [98.3 ??F (36.8 ??C)-99.1 ??F (37.3 ??C)] 98.3 ??F (36.8 ??C) Heart Rate: [69-84] 69 Resp: [18-20] 20 BP: (139-146)/(66-75) 146/66 SpO2: [86 %-92 %] 92 % FiO2 (%): [21 %] 21 % General: Alert, looks comfortable. CVS: S1 S2 present. Lungs: CTA b/l Abd: Soft, no tenderness. Neuro : Moving extremities grossly , NO FND Please see EMR for more detailed significant labs, imaging, corporate travel consultant notes etc. Total time spent today greater than 35 minutes with greater than 50% of time spent in counseling andcoordination of care. Yadira Draper MD [facility]ist Service: CC:Benjamin Henao MD INUOUS TOWEL ROLLER documented in this encounter Medications at Time of Discharge Medication Sig Dispensed Refills Start Date End Date aspirin 81 MG tablet Take 1 tablet by 0 mouth daily. ATENOLOL PO Take by mouth. 0 1 Cetirizine HCl (ZYRTEC Take 10 mg by 0 12/16/2020 ALLERGY PO) mouth. FOLIC ACID PO Take 1 mg by mouth 0 daily. GLIPIZIDE PO Take by mouth. 0 12/17/19 21 Losartan Potassium (COZAAR Take by mouth. 0 12/16/2020 PO) metFORMIN HCl 1000 MG Take 1,000 mg by 0 12/16/2020 (OSM) 24 hr tablet mouth daily (with dinner). Pioglitazone HCl (ACTOS Take by mouth. 0 12/16/2020 PO) Simvastatin (ZOCOR PO) Take 40 mg by 0 12/16/2020 mouth. documented as of this encounter Progress Notes Myrna Grant PA-C - 05/04/2017 10:29 AM CST General Surgery Progress Note 3 Days Post-Op LAPAROSCOPIC ELIZABETH-EN-Y BASTRIC BYPASS CONVERTED TO OPEN; SPLENECTOMY Subjective: Pt is feeling good. Pain controlled. No nausea. Tolerating diet. Urinating on own. Passing some gas Vitals: 05/03/17 1538 05/03/17 2340 05/04/17 0717 05/04/17 0835 BP: 139/74 141/75 146/66 Patient Position: Lying Lying Lying Pulse: 84 80 69 Resp: 20 18 20 Temp: 99.1 ??F (37.3 ??C) 98.9 ??F (37.2 ??C) 98.3 ??F (36.8 ??C) TempSrc: Oral Oral Oral SpO2: (!) 86% 90% 92% 92% Weight: Height: Physical Exam: Lungs: CTA CV: RRR Ab: Soft, + BS, The wound/ dressings are clean and dry Results from last 7 days Lab Units 05/04/17 0838 LN-WHITE BLOOD CELL COUNT thou/uL 11.7* LN-HEMOGLOBIN g/dL 9.0* LN-HEMATOCRIT % 28.7* LN-PLATELET COUNT thou/uL 209 Results from last 7 days Lab Units 05/02/17 0807 LN-SODIUM mmol/L 139 LN-POTASSIUM mmol/L 3.9 LN-CHLORIDE mmol/L 109* LN-CO2 mmol/L 24 LN-BLOOD UREA NITROGEN mg/dL 18 LN-CREATININE mg/dL 0.96 LN-CALCIUM mg/dL 7.9* LN-ALBUMIN g/dL 3.3* Assessment: Pt is progressing well. Plan: doing well. Remove jose francisco and gastrotomy tube. Will place discharge orders in Myrna Grant PA-C [phone] [facility] [address] [place], [place] [id number] INUOUS TOWEL ROLLER Naresh Grant MD - 05/03/2017 5:40 PM CST Agree with note of fernie Guerrero PA-C. Pt seen and examined. Chart reviewed. Feels well. Voiding on own. Tolerating diet. Probably home tomorrow. Naresh Grant MD [facility] INUOUS TOWEL ROLLER Yadira Draper MD - 05/03/2017 9:17 AM CST Brief History: 71-year-old male with past medical history of sleep apnea on CPAP hypertension, hyperlipidemia gastroesophageal reflux disease type 2 diabetes mellitus coronary artery disease BPH who underwent laparoscopic Elizabeth-en-Y gastric bypass converted to open and splenectomy, patient had 2 PRBC transfusion intraoperatively for bleeding and looks like he had 2.8 L blood loss Interval history : Chart reviewed event noted Assessment & Plan: Principal Problem: S/P gastric bypass Active Problems: Type 2 diabetes mellitus Hypertension Obstructive sleep apnea Morbid obesity with BMI of 45.0-49.9, adult Acute hemorrhage #Status post laparoscopic converted to open gastric bypass surgery with a splenectomy continue care per surgery: #Acute blood loss anemia estimated blood loss 2.8 L continue monitoring and transfuse as needed, Intra-Op patient received 2 units of PRBC #Postop pain continue IV and oral as needed pain medication #Type 2 diabetes mellitus: C-peptide 2.9, last hemoglobin A1c 7.2 continue 20 units Lantus and sliding scale insulin will resume metformin #Obesity:Body mass index is 44.49 kg/(m^2). Post Elizabeth-en-Y surgery #History of microcytic anemia #Essential hypertension at home patient on atenolol 50 mg daily and Cozaar will continue monitoring blood pressure and adjust antihypertensive #Dyslipidemia on Lipitor 40 daily #Gastroesophageal reflux disease on PPI #Obstructive sleep apnea on home CPAP #Status post splenectomy #Leukocytosis from stress and pain, improving #Insomnia use Ambien 5 mg as needed in the past patient has been using 10 mg Diet: Per surgery Subjective: No chest pain, No SOB, No nausea or vomiting , pain better Objective: (!) 292 lb 9.6 oz (132.7 kg) Temp: [98 ??F (36.7 ??C)-98.5 ??F (36.9 ??C)] 98.3 ??F (36.8 ??C) Heart Rate: [72-76] 72 Resp: [18-20] 18 BP: (120-147)/(61-72) 147/72 I/O last 3 completed shifts: In: 1350 [P.O.:950; I.V.:400] Out: 1090 [Urine:975; Emesis/NG output:40; Drains:75] General: awake, resting on the chair CVS: S1 S2 present, no murmur , Lungs: CTA b/l , No wheeze, no Crackles Abd: Soft, no tenderness, bandage + drain + Ext:, moving extremities grossly, No FND Results: Lab Results personally reviewed. Results from last 7 days Lab Units 05/02/17 0807 05/01/17 1000 LN-SODIUM mmol/L 139 136 LN-POTASSIUM mmol/L 3.9 5.1* LN-CHLORIDE mmol/L 109* 107 LN-CO2 mmol/L 24 17* LN-BLOOD UREA NITROGEN mg/dL 18 15 LN-CREATININE mg/dL 0.96 1.16 LN-CALCIUM mg/dL 7.9* 8.3* LN-ALBUMIN g/dL 3.3* -- Results from last 7 days Lab Units 05/02/17 0807 05/01/17 1921 05/01/17 1212 05/01/17 0930 LN-WHITE BLOOD CELL COUNT thou/uL 15.0* -- -- -- 18.8* LN-HEMOGLOBIN g/dL 10.5* 11.4* 10.8* < > 10.1* LN-HEMATOCRIT % 32.1* -- -- -- 31.0* LN-PLATELET COUNT thou/uL 166 -- -- -- 175 < > = values in this interval not displayed. Results from last 7 days Lab Units 05/02/17 0807 05/01/17 1000 LN-MAGNESIUM mg/dL 1.8 2.2 Results from last 7 days Lab Units 05/02/17 0807 LN-PHOSPHORUS mg/dL 2.6 Lab Results Component Value Date HGBA1C 7.2 (H) 01/11/2017 Lab Results Component Value Date TSH 2.37 10/19/2016 No results found. Xr Chest Pa And Lateral Result Date: 04/08/2017 XR CHEST 2 VIEWS 04/08/2017 1:38 PM INDICATION: Pre-op Bariatric Surgery Evaluation COMPARISON: CT 04/28/2015 FINDINGS: Stable hiatal hernia. Lungs are clear. This report was electronically interpreted by: Dr. Ej Chang MD ON 04/08/2017 at 15:24 Xr Abdomen Ap Portable Result Date: 05/01/2017 XR ABDOMEN AP PORTABLE 05/01/2017 10:47 AM INDICATION: Converted to Open COMPARISON: None. FINDINGS: Surgical skin katya are seen at midline, just to the left of midline at approximately the level of the umbilicus, just the right of midline in the right upper quadrant. Bowel katya are seen in the region of the gastroesophageal junction. Drainage catheter is seen in the left upper quadrant. The bowel gas pattern is unremarkable. No other radiopaque foreign bodies are identified. The results were called to the operating room at time of dictation. Medications Scheduled Meds: ??? atenolol 50 mg Oral DAILY ??? insulin aspart (NovoLOG) injection Subcutaneous QID ??? insulin glargine 20 Units Subcutaneous QHS ??? losartan 50 mg Oral DAILY ??? metoclopramide 10 mg Intravenous Q6H ??? omeprazole 20 mg Oral DAILY ??? traMADol 100 mg Oral Q6H Continuous Infusions: ??? lidocaine cardiac Stopped (05/01/17 1037) ??? nacl 0.9% 100 mL/hr (05/03/17 0706) PRN Meds:.acetaminophen, dextrose 50 % (D50W), glucagon (human recombinant), labetalol, melatonin, naloxone OR naloxone, ondansetron OR ondansetron, zolpidem 1.Barriers to D/C: 2. Anticipated D/C: ? Saturday or Saturday 3. Disposition: This note was dictated using voice recognition software. Any grammatical or context distortions are unintentional and inherent to the software. INUOUS TOWEL ROLLER Day, Myrna Mascorro PA-C - 05/03/2017 8:56 AM CST General Surgery Progress Note 2 Days Post-Op LAPAROSCOPIC ELIZABETH-EN-Y BASTRIC BYPASS CONVERTED TO OPEN; SPLENECTOMY Subjective: Pt is feeling great. He is doing well with just oral pain medications. Walking often. Has egan in .No nausea. Vitals: 05/02/17 1533 05/02/17 1534 05/02/17 2354 05/03/17 0728 BP: 120/68 134/61 147/72 Patient Position: Sitting Lying Lying Pulse: 75 76 72 Resp: 18 Temp: 98.5 ??F (36.9 ??C) 98 ??F (36.7 ??C) 98.3 ??F (36.8 ??C) TempSrc: Oral Oral Oral SpO2: (!) 86% 90% 90% (!) 88% Weight: Height: Physical Exam: Lungs: CTA CV: RRR Ab: Soft, hypoactive BS, The wound/ dressings are clean and dry- jose francisco serous fluid Results from last 7 days Lab Units 05/02/17 0807 LN-WHITE BLOOD CELL COUNT thou/uL 15.0* LN-HEMOGLOBIN g/dL 10.5* LN-HEMATOCRIT % 32.1* LN-PLATELET COUNT thou/uL 166 Results from last 7 days Lab Units 05/02/17 0807 LN-SODIUM mmol/L 139 LN-POTASSIUM mmol/L 3.9 LN-CHLORIDE mmol/L 109* LN-CO2 mmol/L 24 LN-BLOOD UREA NITROGEN mg/dL 18 LN-CREATININE mg/dL 0.96 LN-CALCIUM mg/dL 7.9* LN-ALBUMIN g/dL 3.3* Assessment: Pt is progressing well. Plan: ok d/c egan and cat scan technologist. Ok d/c iv fluids. Waiting for better bowel function return. Anticipate home tomorrow. Myrna Grant PA-C [phone] [facility] [address] [place], [place] [id number] INUOUS TOWEL ROLLER Historical Provider - 05/02/2017 2:57 PM CST Bariatric Care- Nutrition Education Pt is POD1 s/p RNY with Dr. Grant. Reports tolerating bariatric clear liquid tray well. Working on sips every 3 minutes. Reviewed post op full liquid diet to be followed for 1 weeks. Appropriate liquids reviewed to included yogurt without fruit chunks, thinned creamed cereals, strained creamed soups, broth, SF jello/pudding, and blended fruit in own juices. Pt will aim to drink a protein shake providing 20-30 grams of protein in addition to meals. Answered pt questions. Pt will continue to take chewable MVI with 18mg iron BID and SL B12 1,000-2,500mcg daily. Pt verbalized understanding. Is scheduled to follow up at Bariatric Clinic next week. Gayatri Weber, RN - 05/02/2017 11:46 AM CST Bariatric Care-Nurse visit Pt is sitting up in the chair and rates his pain at 4/10. No complaints of nausea and is taking fluids without issues. Pt has been up ambulating. Reviewed d/c instructions given to pt in pre-op teaching class. Discussed IS use, incision care, when to call the clinic/surgeon, bowel movements, pain control and activity. Pt is planning on coming to dietitian class next week and has an appt for his 2 week post op visit with scheduled. Pt encouraged to call the clinic with any questions or concerns and informed that we will be calling within the next 3 days to check in. Pt verbalized understanding of all instructions. Gayatri Weber RN, [facility] Surgery and Bariatric Care P [phone] F [phone] INUOUS TOWEL ROLLER Yadira Draper MD - 05/02/2017 11:26 AM CST Brief History: 71-year-old male with past medical history of sleep apnea on CPAP hypertension, hyperlipidemia gastroesophageal reflux disease type 2 diabetes mellitus coronary artery disease BPH who underwent laparoscopic Elizabeth-en-Y gastric bypass converted to open and splenectomy, patient had 2 PRBC transfusion intraoperatively for bleeding and looks like he had 2.8 L blood loss Interval history : Chart reviewed event noted Assessment & Plan: Principal Problem: S/P gastric bypass Active Problems: Type 2 diabetes mellitus Hypertension Obstructive sleep apnea Morbid obesity with BMI of 45.0-49.9, adult Acute hemorrhage #Status post laparoscopic converted to open gastric bypass surgery with a splenectomy continue care per surgery: #Acute blood loss anemia estimated blood loss 2.8 L continue monitoring and transfuse as needed, Intra-Op patient received 2 units of PRBC #Postop pain continue IV and oral as needed pain medication #Type 2 diabetes mellitus: C-peptide 2.9 per patient's bariatricians note, on liquid diet he was requiring 40 units of Lantus, continue current regimen with Lantus 20 and sliding scale insulin. Blood sugar reviewed #Obesity:Body mass index is 44.49 kg/(m^2). Post Leizabeth-en-Y surgery #History of microcytic anemia #Essential hypertension at home patient on atenolol 50 mg daily and Cozaar will continue monitoring blood pressure and adjust antihypertensive #Dyslipidemia on Lipitor 40 daily #Gastroesophageal reflux disease on PPI #Obstructive sleep apnea on home CPAP #Status post splenectomy #Leukocytosis from stress and pain Diet: Per surgery Subjective: No chest pain, No SOB, No nausea or vomiting , pain present Objective: (!) 292 lb 9.6 oz (132.7 kg) Temp: [97.5 ??F (36.4 ??C)-99.2 ??F (37.3 ??C)] 98.7 ??F (37.1 ??C) Heart Rate: [60-91] 76 Resp: [13-20] 16 BP: (106-153)/(57-77) 141/72 Arterial Line BP: (105-117)/(43-49) 117/49 I/O last 3 completed shifts: In: 5294.3 [P.O.:165; I.V.:3179.3; Blood:700; IV Piggyback:1250] Out: 4000 [Urine:1000; Drains:200; Blood:2800] General: awake, resting on the chair CVS: S1 S2 present, no murmur , Lungs: CTA b/l , No wheeze, no Crackles Abd: Soft, no tenderness, bandage + Ext:, moving extremities grossly, No FND Results: Lab Results personally reviewed. Results from last 7 days Lab Units 05/02/17 0807 05/01/17 1000 [address]-SODIUM mmol/L 139 136 LN-POTASSIUM mmol/L 3.9 5.1* LN-CHLORIDE mmol/L 109* 107 LN-CO2 mmol/L 24 17* LN-BLOOD UREA NITROGEN mg/dL 18 15 LN-CREATININE mg/dL 0.96 1.16 LN-CALCIUM mg/dL 7.9* 8.3* LN-ALBUMIN g/dL 3.3* -- Results from last 7 days Lab Units 05/02/17 0807 05/01/17 1921 05/01/17 1212 05/01/17 0930 [address]-WHITE BLOOD CELL COUNT thou/uL 15.0* -- -- -- 18.8* LN-HEMOGLOBIN g/dL 10.5* 11.4* 10.8* < > 10.1* LN-HEMATOCRIT % 32.1* -- -- -- 31.0* LN-PLATELET COUNT thou/uL 166 -- -- -- 175 < > = values in this interval not displayed. Results from last 7 days Lab Units 05/02/17 0807 05/01/17 1000 [address]-MAGNESIUM mg/dL 1.8 2.2 Results from last 7 days Lab Units 05/02/17 0807 [address]-PHOSPHORUS mg/dL 2.6 Lab Results Component Value Date HGBA1C 7.2 (H) 01/11/2017 Lab Results Component Value Date TSH 2.37 10/19/2016 No results found. Xr Chest Pa And Lateral Result Date: 04/08/2017 XR CHEST 2 VIEWS 04/08/2017 1:38 PM INDICATION: Pre-op Bariatric Surgery Evaluation COMPARISON: CT 04/28/2015 FINDINGS: Stable hiatal hernia. Lungs are clear. This report was electronically interpreted by: Dr. Ej Chang MD ON 04/08/2017 at 15:24 Xr Abdomen Ap Portable Result Date: 05/01/2017 XR ABDOMEN AP PORTABLE 05/01/2017 10:47 AM INDICATION: Converted to Open COMPARISON: None. FINDINGS: Surgical skin katya are seen at midline, just to the left of midline at approximately the level of the umbilicus, just the right of midline in the right upper quadrant. Bowel katya are seen in the region of the gastroesophageal junction. Drainage catheter is seen in the left upper quadrant. The bowel gas pattern is unremarkable. No other radiopaque foreign bodies are identified. The results were called to the operating room at time of dictation. Medications Scheduled Meds: ??? atenolol 50 mg Oral DAILY ??? insulin aspart (NovoLOG) injection Subcutaneous QID ??? insulin glargine 20 Units Subcutaneous QHS ??? metoclopramide 10 mg Intravenous Q6H ??? omeprazole 20 mg Oral DAILY ??? traMADol 100 mg Oral Q6H Continuous Infusions: ??? lidocaine cardiac Stopped (05/01/17 1037) ??? morphine (PF) 0 (05/01/17 1438) ??? nacl 0.9% 100 mL/hr (05/02/17 1050) PRN Meds:.acetaminophen, dextrose 50 % (D50W), glucagon (human recombinant), labetalol, melatonin, naloxone OR naloxone, ondansetron OR ondansetron 1.Barriers to D/C: 2. Anticipated D/C: TBD 3. Disposition: This note was dictated using voice recognition software. Any grammatical or context distortions are unintentional and inherent to the software. INUOUS TOWEL ROLLER Naresh Grant MD - 05/02/2017 7:22 AM CST Subjective: Feels well this morning. Tolerating sips of water. Does have incisional pain with movement. Ojective: Vitals: 05/02/17 0005 05/02/17 0042 05/02/17 0353 05/02/17 0400 BP: 153/69 Patient Position: Lying Pulse: 66 Resp: Temp: 98.8 ??F (37.1 ??C) TempSrc: Oral SpO2: 93% 91% Weight: Height: Body mass index is 44.49 kg/(m^2). EXAM: CARDIAC: Regular rhythm and rate LUNGS: Clear ABDOMEN: Dressing with a slight amount of old blood. JOSE FRANCISCO drain with decreasing outputs. LABS: Lab Results Component Value Date WBC 18.8 (H) 05/01/2017 HGB 11.4 (L) 05/01/2017 HCT 31.0 (L) 05/01/2017 MCV 85 05/01/2017 PLT 175 05/01/2017 Lab Results Component Value Date INR 1.05 04/08/2017 Results from last 7 days Lab Units 05/01/17 1000 LN-SODIUM mmol/L 136 LN-POTASSIUM mmol/L 5.1* LN-CHLORIDE mmol/L 107 LN-CO2 mmol/L 17* LN-BLOOD UREA NITROGEN mg/dL 15 LN-CREATININE mg/dL 1.16 LN-CALCIUM mg/dL 8.3* Lab Results Component Value Date ALT 24 04/08/2017 AST 20 04/08/2017 ALKPHOS 83 04/08/2017 BILITOT 0.4 04/08/2017 Assessment/Plan: Hemodynamically stable. Doing well at this point. Lab work pending at this time. I discussed OR findings with the patient. No plans for discharge today. Naresh Grant MD [facility] Department of Surgery INUOUS TOWEL ROLLER Yadira Draper MD - 05/01/2017 1:39 PM CST Brief History: 71-year-old male with past medical history of sleep apnea on CPAP hypertension, hyperlipidemia gastroesophageal reflux disease type 2 diabetes mellitus coronary artery disease BPH who underwent laparoscopic Elizabeth-en-Y gastric bypass converted to open and splenectomy, patient had 2 PRBC transfusion intraoperatively for bleeding and looks like he had 2.8 L blood loss Interval history : H&P reviewed Assessment & Plan: Principal Problem: S/P gastric bypass Active Problems: Type 2 diabetes mellitus Hypertension Obstructive sleep apnea Morbid obesity with BMI of 45.0-49.9, adult Acute hemorrhage #Status post laparoscopic converted to open gastric bypass surgery with a splenectomy continue care per surgery: #Acute blood loss anemia estimated blood loss 2.8 L continue monitoring and transfuse as needed, Intra-Op patient received 2 units of PRBC #Postop pain continue IV and oral as needed pain medication #Type 2 diabetes mellitus: C-peptide 2.9 per patient's bariatricians note, on liquid diet he was requiring 40 units of Lantus, will give 20 units at bedtime beside sliding scale insulin, hold aspirin and heparin subcu for now due to bleeding #Obesity:Body mass index is 44.49 kg/(m^2). Elizabeth-en-Y surgery #History of microcytic anemia #Essential hypertension at home patient on atenolol 50 mg daily and Cozaar will continue monitoring blood pressure and adjust antihypertensive #Dyslipidemia on Lipitor 40 daily #Gastroesophageal reflux disease on PPI #Obstructive sleep apnea on home CPAP #Status post splenectomy probably he will need vaccination Diet: IV fluid : Lines Subjective: No chest pain, No SOB, No nausea or vomiting , pain at surgical site present Objective: (!) 292 lb 9.6 oz (132.7 kg) Temp: [97.5 ??F (36.4 ??C)-98.2 ??F (36.8 ??C)] 97.5 ??F (36.4 ??C) Heart Rate: [63-79] 79 Resp: [13-20] 20 BP: (106-154)/(48-77) 128/72 Arterial Line BP: (105-118)/(43-49) 117/49 General: awake, distress present CVS: S1 S2 present, no murmur , Lungs: CTA b/l , No wheeze, no Crackles Abd: Soft, no tenderness, bandage + Ext:, moving extremities grossly, No FND Results: Lab Results personally reviewed. Results from last 7 days Lab Units 05/01/17 1000 LN-SODIUM mmol/L 136 LN-POTASSIUM mmol/L 5.1* LN-CHLORIDE mmol/L 107 LN-CO2 mmol/L 17* LN-BLOOD UREA NITROGEN mg/dL 15 LN-CREATININE mg/dL 1.16 LN-CALCIUM mg/dL 8.3* Results from last 7 days Lab Units 05/01/17 1212 05/01/17 0955 05/01/17 0930 LN-WHITE BLOOD CELL COUNT thou/uL -- -- 18.8* LN-HEMOGLOBIN g/dL 10.8* 9.2* 10.1* LN-HEMATOCRIT % -- -- 31.0* LN-PLATELET COUNT thou/uL -- -- 175 Results from last 7 days Lab Units 05/01/17 1000 LN-MAGNESIUM mg/dL 2.2 Lab Results Component Value Date HGBA1C 7.2 (H) 01/11/2017 Lab Results Component Value Date TSH 2.37 10/19/2016 Xr Abdomen Ap Portable Result Date: 05/01/2017 XR ABDOMEN AP PORTABLE 05/01/2017 10:47 AM INDICATION: Converted to Open COMPARISON: None. FINDINGS: Surgical skin katya are seen at midline, just to the left of midline at approximately the level of the umbilicus, just the right of midline in the right upper quadrant. Bowel katya are seen in the region of the gastroesophageal junction. Drainage catheter is seen in the left upper quadrant. The bowel gas pattern is unremarkable. No other radiopaque foreign bodies are identified. The results were called to the operating room at time of dictation. Xr Chest Pa And Lateral Result Date: 04/08/2017 XR CHEST 2 VIEWS 04/08/2017 1:38 PM INDICATION: Pre-op Bariatric Surgery Evaluation COMPARISON: CT 04/28/2015 FINDINGS: Stable hiatal hernia. Lungs are clear. This report was electronically interpreted by: Dr. Ej Chang MD ON 04/08/2017 at 15:24 Xr Abdomen Ap Portable Result Date: 05/01/2017 XR ABDOMEN AP PORTABLE 05/01/2017 10:47 AM INDICATION: Converted to Open COMPARISON: None. FINDINGS: Surgical skin katya are seen at midline, just to the left of midline at approximately the level of the umbilicus, just the right of midline in the right upper quadrant. Bowel katya are seen in the region of the gastroesophageal junction. Drainage catheter is seen in the left upper quadrant. The bowel gas pattern is unremarkable. No other radiopaque foreign bodies are identified. The results were called to the operating room at time of dictation. Medications Scheduled Meds: ??? [START ON 05/02/2017] atenolol 50 mg Oral DAILY ??? heparin (PF) 5,000 Units Subcutaneous Q8H ??? insulin aspart (NovoLOG) injection Subcutaneous QID ??? metoclopramide 10 mg Intravenous Q6H ??? [START ON 05/02/2017] TABLET CUTTER 1 each Miscellaneous Once ??? traMADol 100 mg Oral Q6H Continuous Infusions: ??? dexmedetomidine 200 mcg/50 mL in NS (PRECEDEX) (4mcg/mL) Stopped (05/01/17 1037) ??? lidocaine cardiac Stopped (05/01/17 1037) ??? morphine (PF) ??? sodium chloride 0.9 % with KCl 20 mEq PRN Meds:.acetaminophen, dextrose 50 % (D50W), glucagon (human recombinant), labetalol, naloxone OR naloxone, ondansetron OR ondansetron 1.Barriers to D/C: 2. Anticipated D/C: TBD 3. Disposition: Plan discussed with patient and RN. Total time spent today greater than 35 minutes with greater than50% of time spent in counseling and coordination of care. This note was dictated using voice recognition software. Any grammatical or context distortions are unintentional and inherent to the software. INUOUS TOWEL ROLLER Historical Provider - 05/01/2017 6:30 AM CST Pharmacy Note - Admission Medication History Pertinent Provider Information: Prior To Admission (FOCUSED FACTORY MANAGER) med list completed and updated in EMR. FOCUSED FACTORY MANAGER Med List Medication Sig Last Dose ??? atenolol (TENORMIN) 50 MG tablet Take 50 mg by mouth daily. As directed. 05/01/2017 at 0330 ??? cetirizine (ZYRTEC) 10 mg cap Take 1 tablet by mouth daily. 04/30/2017 at Unknown time ??? cholecalciferol, vitamin D3, (VITAMIN D3) 5,000 unit Tab Take 1 tablet (5,000 Units total) by mouth daily. 04/30/2017 at Unknown time ??? cyanocobalamin (VITAMIN B-12) 500 MCG tablet Take 1 tablet (500 mcg total) by mouth every other day. 04/30/2017 at Unknown time ??? folic acid (FOLVITE) 1 MG tablet Take 1 mg by mouth daily. As directed. 04/30/2017 at Unknown time ??? losartan (COZAAR) 50 MG tablet Take 50 mg by mouth daily. 04/30/2017 at Unknown time ??? omeprazole (PRILOSEC) 20 MG capsule Take 20 mg by mouth daily. 04/30/2017 at Unknown time ??? pediatric multivitamin (FLINTSTONES) Chew chewable tablet Chew 1 tablet 2 (two) times a day. 04/30/2017 at Unknown time ??? sildenafil (VIAGRA) 100 MG tablet Take 1 tablet (100 mg total) by mouth as needed for erectile dysfunction. Taking ??? ursodiol (ACTIGALL) 300 mg capsule Take 1 capsule (300 mg total) by mouth 2 (two) times a day. Start 2 wks after surgery. Do not open capsule. Swallow whole with warm water. Taking Information source(s): Patient, Patient's pharmacy and Clinic records Patient was asked about OTC/herbal products specifically. FOCUSED FACTORY MANAGER med list reflects this. Based on the pharmacist???s assessment, the FOCUSED FACTORY MANAGER med list information appears reliable Allergies were reviewed, assessed, and updated with the patient. Patient does not use any multi-dose medications prior to admission. Thank you for the opportunity to participate in the care of this patient. Naresh Ward [facility] 05/01/2017 6:30 AM documented in this encounter H&P Notes Naresh Grant MD - 05/01/2017 7:22 AM CST I have performed an assessment and examined the patient, as necessary, to update the patient's current status that may have changed since the prior History and Physical. 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 BPH (benign prostatic hyperplasia) ??? Coronary artery disease ??? Diabetes mellitus type 2 ??? GERD (gastroesophageal reflux disease) better with prilosec ??? Heart disease ??? Hyperlipemia ??? Hyperlipidemia ??? Hypertension ??? Intestinal polyps every 5 years, next due in 2021. ??? Pneumonia 2014. ??? Sleep apnea use cpap Patient Active Problem List Diagnosis Date Noted ??? S/P gastric bypass 05/01/2017 ??? Microcytic anemia 05/08/2016 ??? Microalbuminuria 06/13/2015 ??? Benign Prostatic Hypertrophy 05/06/2014 ??? Benign Adenomatosis Of The Large Intestine ??? Insomnia ??? Obesity ??? Type 2 diabetes mellitus ??? 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 Colonic Diverticulosis ??? Coronary Artery Disease ??? Hyperlipidemia ??? Hypertension ??? Esophageal Reflux ??? Obstructive sleep apnea Findings: Elizabeth-150cm; BPL-80cm; Gastric Pouch- 15cc; Leak test- negatinve; No drains placed There was a small hiatal hernia. In dissecting posterior to the stomach the anatomy was a little unclear. In trying to define the left diaphragmatic hussein I got into very brisk bleeding that I cannot control laparoscopically. I converted to an open operation and turned out that this was coming from thesplenic artery, which was running a very superior course. 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 A splenectomy was then performed. I then proceeded on to a Elizabeth-en-Y gastric bypass Operative Report: After consent was obtained the patient was brought to the operating room where general anesthesia was performed without difficulty. The abdomen was prepped and draped in a sterile manner. A 12 mm trocar was placed under direct vision in the left stephanie-umbilical region. The abdominal cavity was insufflated with CO2. A laparoscope was introduced and no gross abnormalities were noted. A Nathason liver retractor was placed in the upper mid epigastrium and the left lobe of the liver was retracted anteriorly. A 5mm trocar was placed in the RUQ, another 12 mm trocar in the right stephanie-umbilical region and 25mm trocars in the LUQ. Dissection was carried up to the GE junction. A small hiatal hernia was ident ified but did not seem to be too consequential. I dissected posteriorly along the right diaphragmatic hussein but cannot identify a significant hernia. The Angle of His was mobilized. Attention was then turned to the lesser curvature where a stephanie-gastric approach was made to the posterior aspect of the stomach. Once the lesser sac was entered the stomach was divided with an Ethicon echelon endoscopic stapler. However as I was dissecting posterior the anatomy seems somewhat unusual. I cannot clearly identify a the left diaphragmatic hussein up towards the angle of Hiss. As I was dissecting through quite abit of fatty tissue in this area I encountered a sudden brisk bleeding. I took several attempts to control this including placing some suture in ligaclips but I could not adequately control this. At this point I decided to proceed to an open operation. A midline incision was made. The previous La liver retractor was removed and a upper arm was placed. Eyes encircled the esophagus with a Phani drain and retracted this anteriorly. I had placed several lap sponges in the area and had placed pressure on this is a had gotten my set up. Once I started exploring the area I noted that the spleen itself appeared infarcted. I went ahead and did a splenectomy and carried my dissection somewhat medially and found were I had actually lacerated the splenic artery. This had taken of unusually superior course up around the angle of his and had been hidden behind a quite a bit of fatty tissue. At this point we had lost about 2500 cc of blood. The patient remained stable. A unit of packed cells was ordered. In conference with anesthesia they felt it was okay to go ahead and to proceed with surgery. Thedivision of the stomach was then continued and completed. Attention was then turned to the small bowel where the Ligament of Trietz was identified. About 80cm distal to this a loop of jejunum was brought up and secured to the small proximal gastric pouch using 2- Surgidek. A linear gastrojejunostomy was then created with a blue cartridge of about 1.5cm in length. The common enterotomy was then closedusing a 2- Polysorb. A 32Fr oral gastric tube was then passed down beyond the anastamosis and a second layer of 2-Surideck was placed anteriorly, cinching trhe anastomosis up around the tube. The jejunum was then transected just proximal to the gastrojejunostomy with a white cartridge. A 150cm elizabeth limb was then measured distal to the gastrojejunostomy and the jejunum here was brought up to the biliopancreatic limb where a jejunojejunostomy was created with a 60mm white cartridge. The common enterotomy was closed with a 2- Polysorb and the mesenteric defect was closed with a 2-0 Surgidek. Myers's defect was closed with a 2-0 Surgidek. The gastrojejunostomy was then placed under Normal Saline and insufflated with air under pressure and noted to be air tight. 18 [place] red rubber Rae was then brought in through a separate stab incision left upper quadrant and placed as a Witzel type gastrostomy tube within the distal stomach anchoring the distal stomach to the anterior abdominal wall around the tube. A 10 flat JOSE FRANCISCO drain was also placed along the splenic bed and brought out through 1 of the trocar sites. Fascia was then closed with oh loop Maxon and the skin was closed with katya. The skin incisions were closed with 4-0 Vicryl. Patient had remained hemodynamically stable. Sponge and needle counts were reported as correct. Estimated Blood Loss: 2800 mL from 05/01/2017 7:30 AM to 05/01/2017 10:48 AM Specimens: ID Type Source Tests Collected by Time Destination A : Tissue Spleen SURGICAL PATHOLOGY EXAM Naresh Grant MD 05/01/2017 0949 Drains: Gastrostomy/Enterostomy Gastrostomy 16 Fr. (Active) Implants: Implant Name Type Inv. Item Serial No. Sole Conditioner Lot No. LRB No. Used Action STAPLE RELOAD ECHELON 60MM 4.1MM GREEN - [id number] - S STAPLING STAPLE RELOAD ECHELON 60MM 4.1MM GREEN - [id number] ETHICON/EN [id number] N/A 2 Implanted STAPLE RELOAD ECHELON 60MM 4.1MM GREEN - [id number] - S STAPLING STAPLE RELOAD ECHELON 60MM 4.1MM GREEN - [id number] ETHICON/EN [id number] N/A 2 Implanted RETREAD BUILDER ENDO LIGAMAX 5MM - [id number] - S STAPLING RETREAD BUILDER ENDO LIGAMAX 5MM - [id number] ETHICON/EN [id number] N/A 1 Implanted RETREAD BUILDER ENDO CLIP 10MM [id number] - S STAPLING RETREAD BUILDER ENDO CLIP 10MM [id number] ETHICON/EN [id number] N/A 2 Implanted STAPLE RELOAD ECHELON 60MM 3.6MM BLUE - [id number] - S STAPLING STAPLE RELOAD ECHELON 60MM 3.6MM BLUE - [id number] ETHICON/EN [id number] N/A 1 Implanted STAPLE RELOAD ECHELON 60MM 2.6MM WHITE - [id number] - S STAPLING STAPLE RELOAD ECHELON 60MM 2.6MM WHITE - [id number] ETHICON/EN [id number] N/A 2 Implanted Complications: Lacerated's splenic artery resulting in splenectomy Naresh Grant Date: 05/01/2017 Time: 10:48 AM INUOUS TOWEL ROLLER documented in this encounter Plan of Treatment Not on filedocumented as of this encounter Procedures Procedure Name Priority Date/Time Associated Comments Diagnosis CROSSMATCH RED CELLS Routine 05/05/2017 12:03 Res ults for this AM CONTINUOUS TOWEL ROLLER procedure are i n the results section. CROSSMATCH RED CELLS Routine 05/05/2017 12:03 Res ults for this AM CONTINUOUS TOWEL ROLLER procedure are i n the results section. CBC WITH PLATELETS Routine 05/04/2017 8:38 AM Res ults for this AND DIFFERENTIAL CONTINUOUS TOWEL ROLLER procedure a re in the results section. GLUCOSE BY METER POCT Routine 05/04/2017 7:10 AM Results for this CONTINUOUS TOWEL ROLLER procedure are i n the results section. GLUCOSE BY METER POCT Routine 05/03/2017 9:28 PM Results for this CONTINUOUS TOWEL ROLLER procedure are i n the results section. GLUCOSE BY METER POCT Routine 05/03/2017 5:09 PM Results for this CONTINUOUS TOWEL ROLLER procedure are i n the results section. LAB RESULT - HIM SCAN 05/03/2017 1:04 PM CONTINUOUS TOWEL ROLLER GLUCOSE BY METER POCT Routine 05/03/2017 11:39 Re sults for this AM CONTINUOUS TOWEL ROLLER procedure are i n the results section. GLUCOSE BY METER POCT Routine 05/03/2017 8:11 AM Results for this CONTINUOUS TOWEL ROLLER procedure are i n the results section. CROSSMATCH RED CELLS STAT 05/03/2017 7:08 AM R esults for this CONTINUOUS TOWEL ROLLER procedure are i n the results section. CROSSMATCH RED CELLS STAT 05/03/2017 7:08 AM R esults for this CONTINUOUS TOWEL ROLLER procedure are i n the results section. GLUCOSE BY METER POCT Routine 05/02/2017 8:25 PM Results for this CONTINUOUS TOWEL ROLLER procedure are i n the results section. GLUCOSE BY METER POCT Routine 05/02/2017 5:09 PM Results for this CONTINUOUS TOWEL ROLLER procedure are i n the results section. GLUCOSE BY METER POCT Routine 05/02/2017 11:41 Re sults for this AM CONTINUOUS TOWEL ROLLER procedure are i n the results section. GLUCOSE BY METER POCT Routine 05/02/2017 8:15 AM Results for this CONTINUOUS TOWEL ROLLER procedure are i n the results section. CBC WITH PLATELETS Routine 05/02/2017 8:07 AM Res ults for this AND DIFFERENTIAL CONTINUOUS TOWEL ROLLER procedure a re in the results section. RENAL PANEL Routine 05/02/2017 8:07 AM Results f or this CONTINUOUS TOWEL ROLLER procedure are i n the results section. MAGNESIUM Routine 05/02/2017 8:07 AM Results f or this CONTINUOUS TOWEL ROLLER procedure are i n the results section. CROSSMATCH RED CELLS Routine 05/02/2017 12:04 Res ults for this AM CONTINUOUS TOWEL ROLLER procedure are i n the results section. CROSSMATCH RED CELLS Routine 05/02/2017 12:04 Res ults for this AM CONTINUOUS TOWEL ROLLER procedure are i n the results section. GLUCOSE BY METER POCT Routine 05/01/2017 9:09 PM Results for this CONTINUOUS TOWEL ROLLER procedure are i n the results section. HEMOGLOBIN Routine 05/01/2017 7:21 PM Results f or this CONTINUOUS TOWEL ROLLER procedure are i n the results section. GLUCOSE BY METER POCT Routine 05/01/2017 5:47 PM Results for this CONTINUOUS TOWEL ROLLER procedure are i n the results section. HEMOGLOBIN STAT 05/01/2017 12:12 Results for this PM CONTINUOUS TOWEL ROLLER procedure are i n the results section. GLUCOSE BY METER POCT Routine 05/01/2017 11:20 Re sults for this AM CONTINUOUS TOWEL ROLLER procedure are i n the results section. XR ABDOMEN PORT 1 Routine 05/01/2017 10:47 Result s for this VIEW AM CONTINUOUS TOWEL ROLLER procedure are i n the results section. GLUCOSE BY METER POCT Routine 05/01/2017 10:05 Re sults for this AM CONTINUOUS TOWEL ROLLER procedure are i n the results section. MAGNESIUM STAT 05/01/2017 10:00 Results for this AM CONTINUOUS TOWEL ROLLER procedure are i n the results section. BLOOD GAS ARTERIAL STAT 05/01/2017 10:00 Resul ts for this AM CONTINUOUS TOWEL ROLLER procedure are i n the results section. BASIC METABOLIC PANEL STAT 05/01/2017 10:00 Re sults for this AM CONTINUOUS TOWEL ROLLER procedure are i n the results section. HEMOGLOBIN STAT 05/01/2017 9:55 AM Results f or this CONTINUOUS TOWEL ROLLER procedure are i n the results section. SURGICAL PATHOLOGY Routine 05/01/2017 9:49 AM Res ults for this EXAM CONTINUOUS TOWEL ROLLER procedure are i n the results section. EXTRA BLUE TOP TUBE Routine 05/01/2017 9:30 AM CONTINUOUS TOWEL ROLLER TYPE AND SCREEN, Routine 05/01/2017 9:30 AM Resul ts for this ADULT CONTINUOUS TOWEL ROLLER procedure are i n the results section. CBC WITH PLATELETS STAT 05/01/2017 9:30 AM Res ults for this CONTINUOUS TOWEL ROLLER procedure are i n the results section. GLUCOSE BY METER POCT Routine 05/01/2017 8:21 AM Results for this CONTINUOUS TOWEL ROLLER procedure are i n the results section. GLUCOSE BY METER POCT Routine 05/01/2017 6:03 AM Results for this CONTINUOUS TOWEL ROLLER procedure are i n the results section. documented in this encounter Results Crossmatch red cells (05/05/2017 12:03 AM CONTINUOUS TOWEL ROLLER) [facility] Method Time Signature Crossmatch Compatible 05/05/2017 [facility] BLOOD 12:03 AM BANK CONTINUOUS TOWEL ROLLER BLOOD [id number] 05/05/2017 [facility] BLOOD EXPIRATION 12:03 AM BANK DATE CONTINUOUS TOWEL ROLLER Unit ABO/RH O Pos 05/05/2017 [facility] BLOOD 12:03 AM BANK CONTINUOUS TOWEL ROLLER Unit Number [id number] 05/05/2017 [facility] BLOOD 12:03 AM BANK CONTINUOUS TOWEL ROLLER Status Released 05/05/2017 [facility] BLOOD 12:03 AM BANK CONTINUOUS TOWEL ROLLER Component Red Blood Cells 05/05/2017 [facility] BLOOD 12:03 AM BANK CONTINUOUS TOWEL ROLLER Product Code [id number] 05/05/2017 [facility] BLOOD 12:03 AM BANK CONTINUOUS TOWEL ROLLER BLOOD TYPE 5100 05/05/2017 [facility] BLOOD 12:03 AM BANK CONTINUOUS TOWEL ROLLER CODING SYSTEM [id number] 05/05/2017 [facility] BLOOD 12:03 AM BANK CONTINUOUS TOWEL ROLLER Specimen (Source) Anatomical Location Collection Method / Collectio n Time Received Time / Laterality Volume Derian Yeager MD LAB - BLOOD BANK PRODUCT ORD ER Performing Organization Address City/State/ZIP Code Phon e Number O BLOOD BANK [address] [place] [address] BLOOD BANK [address] [place] [address] Crossmatch red cells (05/05/2017 12:03 AM CONTINUOUS TOWEL ROLLER) [facility] Method Time Signature Crossmatch Compatible 05/05/2017 [facility] BLOOD 12:03 AM BANK CONTINUOUS TOWEL ROLLER BLOOD [id number] 05/05/2017 [facility] BLOOD EXPIRATION 12:03 AM BANK DATE CONTINUOUS TOWEL ROLLER Unit ABO/RH O Pos 05/05/2017 [facility] BLOOD 12:03 AM BANK CONTINUOUS TOWEL ROLLER Unit Number [id number] 05/05/2017 [facility] BLOOD 12:03 AM BANK CONTINUOUS TOWEL ROLLER Status Released 05/05/2017 [facility] BLOOD 12:03 AM BANK CONTINUOUS TOWEL ROLLER Component Red Blood Cells 05/05/2017 [facility] BLOOD 12:03 AM BANK CONTINUOUS TOWEL ROLLER Product Code [id number] 05/05/2017 [facility] BLOOD 12:03 AM BANK CONTINUOUS TOWEL ROLLER BLOOD TYPE 5100 05/05/2017 [facility] BLOOD 12:03 AM BANK CONTINUOUS TOWEL ROLLER CODING SYSTEM [id number] 05/05/2017 BLOOD 12:03 AM BANK CONTINUOUS TOWEL ROLLER Specimen (Source) Anatomical Location Collection Method / Collectio n Time Received Time / Laterality Volume Derian Yeager MD LAB - BLOOD BANK PRODUCT ORD ER Performing Organization Address City/State/ZIP Code Phon e Number SJ BLOOD BANK [address] [facility] [place] [address] BLOOD BANK [address] [place] [address] (ABNORMAL) CBC WITH PLATELETS AND DIFFERENTIAL (05/04/2017 8:38 AM CONTINUOUS TOWEL ROLLER) [facility] gist Method Time Signature WBC 11.7 (H) 4.0 - 05/04/2017 HEALTH 11.0 8:46 AM CONTINUOUS TOWEL ROLLER [facility]/ [facility] RBC Count 3.26 (L) 4.40 - 05/04/2017 HEALTH 6.20 8:46 AM CONTINUOUS TOWEL ROLLER [facility]Reg[facility] Event Marketing PartnershipSt[facility] Hemoglobin 9.0 (L) 14.0 - 05/04/2017 HEALTH 18.0 g/dL 8:46 AM CONTINUOUS TOWEL ROLLER [facility]Reg[facility] Event [facility] PartnershipMIN[facility] Hematocrit 28.7 (L) 40.0 - 05/04/2017 HEALTH 54.0 % 8:46 AM CONTINUOUS TOWEL ROLLER ETOWAHMoov cc.[facility] MCV 88 80 - 100 05/04/2017 [facility] fL 8:46 AM [facility] MCH 27.6 27.0 - 05/04/2017 HEALTH 34.0 pg 8:46 AM CONTINUOUS TOWEL ROLLER [facility] MCHC 31.4 (L) 32.0 - 05/04/2017 HEALTH 36.0 g/dL 8:46 AM CONTINUOUS TOWEL ROLLER [facility] RDW 14.6 (H) 11.0 - 05/04/2017 HEALTH 14.5 % 8:46 AM CONTINUOUS TOWEL ROLLER [facility]SummuS RenderLE[facility] Platelet Count 209 140 - 440 05/04/2017 [facility]/uL 8:46 AM CONTINUOUS TOWEL ROLLER [facility]Sum[facility]enderLE[facility] Mean Platelet 11.0 8.5 - 05/04/2017 HEALTH Volume 12.5 fL 8:46 AM CONTINUOUS TOWEL ROLLER [facility]Sum[facility] % Neutrophils 70 50 - 70 % 05/04/2017 M HE[facility] 8:46 AM [facility]ENTERKevin [facility] % Lymphocytes 17 (L) 20 - 40 % 05/04/2017 [facility] 8:46 AM [facility]ERK[facility] % Monocytes 13 (H) 2 - 10 % 05/04/2017 [facility] 8:[address] [facility] % Eosinophils 0 0 - 6 % 05/04/2017 [facility] 8:[address] [facility] % Basophils 0 0 - 2 % 05/04/2017 [facility] 8:46 AM [facility] Absolute 8.2 (H) 2.0 - 7.7 05/04/2017 [facility] Neutrophils thou/uL 8:46 AM [facility] Absolute 1.9 0.8 - 4.4 05/04/2017 [facility] Lymphocytes thou/uL 8:46 AM [facility]ERK[facility] Absolute 1.5 (H) 0.0 - 0.9 05/04/2017 [facility] Monocytes thou/uL 8:46 AM [facility] Eosinophils 0.0 0.0 - 0.4 05/04/2017 [facility] Absolute thou/uL 8:46 AM [facility] Absolute 0.1 0.0 - 0.2 05/04/2017 [facility] Basophils thou/uL 8:46 AM [facility] Specimen Anatomical Collection Method / Collection Time Recei nona Time (Source) Location / Volume Laterality Blood specimen STRUCTURE OF LEFT Venipuncture / 05/04/2017 8:38 8:41 (specimen) UPPER LIMB / Unknown AM CONTINUOUS TOWEL ROLLER AM CONTINUOUS TOWEL ROLLER Unknown Yadira Draper MD LAB - BLOOD ORDERABLES Performing Organization Address City/State/ZIP Code Phon [place] [address] [phone] [address] [facility] Glucose by meter POCT (05/04/2017 7:10 AM CONTINUOUS TOWEL ROLLER) athologist Signature GLUCOSE BY 151 mg/dL 05/04/2017 [facility] METER POCT 7:10 AM [facility] POCT RESULTS Comment: Reference Ranges ? Age ?Normal ?Critical Values ? 0 day ?44-98 mg/d L ? <40 and >=400 mg/dL ? 1 day ?53-93 mg/d L ? <50 and >=400 mg/dL ? 2 day ?50-100 mg/ dL ?<50 and >=400 mg/dL ? 3 day ?62-110 mg/ dL ?<50 and >=400 mg/dL ? 4-7 day ?57-107 mg/d L ?<50 and >=400 mg/dL ? 8 d - 6 yr ? 69-115 mg/dL ?<50 and >=400 mg/dL ? 6 yr - 11 yr ?? 84-110 mg/dL ?<50 and >=400 mg/dL ? 11 yr - 16 yr ??79-116 mg/dL ?<50 and >=400 mg/dL ? > 16 yr ?70-125 mg/d L ?<60 and >=400 mg/dL Specimen Anatomical Collection Method Collection Time Receive d Time (Source) Location / / Volume Laterality Blood specimen 05/04/2017 7:10 AM 018 7:12 (specimen) [facility] Historical Provider LAB - ENTER/EDIT POCT Performing Organization Address City/State/ZIP Code Phon e Number [facility] POCT RESULTS [address] [place] [address] Glucose by meter POCT (05/03/2017 9:28 PM [facility]) P athologist Signature GLUCOSE BY 161 mg/dL 05/03/2017 [facility] POCT 9:28 PM [facility] POCT RESULTS Comment: Reference Ranges ? Age ?Normal ?Critical Values ? 0 day ?44-98 mg/d L ? <40 and >=400 mg/dL ? 1 day ?53-93 mg/d L ? <50 and >=400 mg/dL ? 2 day ?50-100 mg/ dL ?<50 and >=400 mg/dL ? 3 day ?62-110 mg/ dL ?<50 and >=400 mg/dL ? 4-7 day ?57-107 mg/d L ?<50 and >=400 mg/dL ? 8 d - 6 yr ? 69-115 mg/dL ?<50 and >=400 mg/dL ? 6 yr - 11 yr ?? 84-110 mg/dL ?<50 and >=400 mg/dL ? 11 yr - 16 yr ??79-116 mg/dL ?<50 and >=400 mg/dL ? > 16 yr ?70-125 mg/d L ?<60 and >=400 mg/dL Specimen Anatomical Collection Method Collection Time Receive d Time (Source) Location / / Volume Laterality Blood specimen 05/03/2017 9:28 PM 018 9:34 (specimen) [facility] Historical Provider LAB - ENTER/EDIT POCT Performing Organization Address City/State/ZIP Code Phon e Number [facility] POCT RESULTS [address] [place] [address] Glucose by meter POCT (05/03/2017 5:09 PM [facility]) athologist Signature GLUCOSE BY 150 mg/dL 05/03/2017 [facility] METER POCT 5:09 PM [facility] POCT RESULTS Comment: Reference Ranges ? Age ?Normal ?Critical Values ? 0 day ?44-98 mg/d L ? <40 and >=400 mg/dL ? 1 day ?53-93 mg/d L ? <50 and >=400 mg/dL ? 2 day ?50-100 mg/ dL ?<50 and >=400 mg/dL ? 3 day ?62-110 mg/ dL ?<50 and >=400 mg/dL ? 4-7 day ?57-107 mg/d L ?<50 and >=400 mg/dL ? 8 d - 6 yr ? 69-115 mg/dL ?<50 and >=400 mg/dL ? 6 yr - 11 yr ?? 84-110 mg/dL ?<50 and >=400 mg/dL ? 11 yr - 16 yr ??79-116 mg/dL ?<50 and >=400 mg/dL ? > 16 yr ?70-125 mg/d L ?<60 and >=400 mg/dL Specimen Anatomical Collection Method Collection Time Receive d Time (Source) Location / / Volume Laterality Blood specimen 05/03/2017 5:09 PM 018 5:11 (specimen) CONTINUOUS TOWEL ROLLER PM CONTINUOUS TOWEL ROLLER Historical Provider LAB - ENTER/EDIT POCT Performing Organization Address City/State/ZIP Code Phon e Number [facility] POCT RESULTS [address] [place] [address] LAB RESULT - HIM SCAN (05/03/2017 1:04 PM CONTINUOUS TOWEL ROLLER) Specimen (Source) Anatomical Location Collection Method / Collectio n Time Received Time / Laterality Volume Narrative This result has an attachment that is no t available. Historical Provider NON-BEAKER LAB TESTING Glucose by meter POCT (05/03/2017 11:39 AM [facility]) P athologist Signature GLUCOSE BY 191 mg/dL 05/03/2017 [facility] METER POCT 11:39 AM [facility] POCT RESULTS Comment: Reference Ranges ? Age ?Normal ?Critical Values ? 0 day ?44-98 mg/d L ? <40 and >=400 mg/dL ? 1 day ?53-93 mg/d L ? <50 and >=400 mg/dL ? 2 day ?50-100 mg/ dL ?<50 and >=400 mg/dL ? 3 day ?62-110 mg/ dL ?<50 and >=400 mg/dL ? 4-7 day ?57-107 mg/d L ?<50 and >=400 mg/dL ? 8 d - 6 yr ? 69-115 mg/dL ?<50 and >=400 mg/dL ? 6 yr - 11 yr ?? 84-110 mg/dL ?<50 and >=400 mg/dL ? 11 yr - 16 yr ??79-116 mg/dL ?<50 and >=400 mg/dL ? > 16 yr ?70-125 mg/d L ?<60 and >=400 mg/dL Specimen Anatomical Collection Method Collection Time Receive d Time (Source) Location / / Volume Laterality Blood specimen 05/03/2017 11:39 8 (specimen) AM CONTINUOUS TOWEL ROLLER 11:41 AM CONTINUOUS TOWEL ROLLER Historical Provider LAB - ENTER/EDIT POCT Performing Organization Address City/State/ZIP Code Phon e Number [facility] POCT RESULTS [address] [place] [address] Glucose by meter POCT (05/03/2017 8:11 AM CONTINUOUS TOWEL ROLLER) athologist Signature GLUCOSE BY 172 mg/dL 05/03/2017 [facility] METER POCT 8:11 AM CONTINUOUS TOWEL ROLLER [facility] POCT RESULTS Comment: Reference Ranges ? Age ?Normal ?Critical Values ? 0 day ?44-98 mg/d L ? <40 and >=400 mg/dL ? 1 day ?53-93 mg/d L ? <50 and >=400 mg/dL ? 2 day ?50-100 mg/ dL ?<50 and >=400 mg/dL ? 3 day ?62-110 mg/ dL ?<50 and >=400 mg/dL ? 4-7 day ?57-107 mg/d L ?<50 and >=400 mg/dL ? 8 d - 6 yr ? 69-115 mg/dL ?<50 and >=400 mg/dL ? 6 yr - 11 yr ?? 84-110 mg/dL ?<50 and >=400 mg/dL ? 11 yr - 16 yr ??79-116 mg/dL ?<50 and >=400 mg/dL ? > 16 yr ?70-125 mg/d L ?<60 and >=400 mg/dL Specimen Anatomical Collection Method Collection Time Receive d Time (Source) Location / / Volume Laterality Blood specimen 05/03/2017 8:11 AM 018 8:12 (specimen) CONTINUOUS TOWEL ROLLER AM CONTINUOUS TOWEL ROLLER Historical Provider LAB - ENTER/EDIT POCT Performing Organization Address City/State/ZIP Code Phon e Number [facility] POCT RESULTS [address] [place] [address] Crossmatch red cells (05/03/2017 7:08 AM CONTINUOUS TOWEL ROLLER) [facility] [employer] Method Time Signature Crossmatch Compatible 05/03/2017 [facility] BLOOD 7:08 AM CONTINUOUS TOWEL ROLLER BANK BLOOD [id number] 05/03/2017 [facility] BLOOD EXPIRATION 7:08 AM CONTINUOUS TOWEL ROLLER BANK DATE Unit ABO/RH O Neg 05/03/2017 [facility] BLOOD 7:08 AM CONTINUOUS TOWEL ROLLER BANK Unit Number [id number] 05/03/2017 [facility] BLOOD 7:08 AM CONTINUOUS TOWEL ROLLER BANK Status Released 05/03/2017 [facility] BLOOD 7:08 AM CONTINUOUS TOWEL ROLLER BANK Component Red Blood Cells 05/03/2017 [facility] BLOOD 7:08 AM CONTINUOUS TOWEL ROLLER BANK Product Code [id number] 05/03/2017 [facility] BLOOD 7:08 AM CONTINUOUS TOWEL ROLLER BANK BLOOD TYPE 9500 05/03/2017 [facility] BLOOD 7:08 AM CONTINUOUS TOWEL ROLLER BANK CODING SYSTEM [id number] 05/03/2017 [facility] BLOOD 7:08 AM CONTINUOUS TOWEL ROLLER BANK Specimen (Source) Anatomical Location Collection Method / Collectio n Time Received Time / Laterality Volume Derian Yeager MD LAB - BLOOD BANK PRODUCT ORD ER Performing Organization Address [facility]/ZIP [facility] Phon e Number [facility] BLOOD BANK [address] [place] [id number] [facility] BLOOD BANK [address] [place] [address] Crossmatch red cells (05/03/2017 7:08 AM CONTINUOUS TOWEL ROLLER) [facility] Method Time Signature Crossmatch Compatible 05/03/2017 [facility] BLOOD 7:08 AM CONTINUOUS TOWEL ROLLER BANK BLOOD [id number] 05/03/2017 [facility] BLOOD EXPIRATION 7:08 AM CONTINUOUS TOWEL ROLLER BANK DATE Unit ABO/RH O Neg 05/03/2017 [facility] BLOOD 7:08 AM CONTINUOUS TOWEL ROLLER BANK Unit Number [id number] 05/03/2017 [facility] BLOOD 7:08 AM CONTINUOUS TOWEL ROLLER BANK Status Released 05/03/2017 [facility] BLOOD 7:08 AM CONTINUOUS TOWEL ROLLER BANK Component Red Blood Cells 05/03/2017 [facility] BLOOD 7:08 AM CONTINUOUS TOWEL ROLLER BANK Product Code [id number] 05/03/2017 [facility] BLOOD 7:08 AM CONTINUOUS TOWEL ROLLER BANK BLOOD TYPE 9500 05/03/2017 [facility] BLOOD 7:08 AM CONTINUOUS TOWEL ROLLER BANK CODING SYSTEM [id number] 05/03/2017 [facility] BLOOD 7:08 AM CONTINUOUS TOWEL ROLLER BANK Specimen (Source) Anatomical Location Collection Method / Collectio n Time Received Time / Laterality Volume Derian Yeager MD LAB - BLOOD BANK PRODUCT ORD ER Performing Organization Address City/State/ZIP Code Phon e Number [facility] BLOOD BANK [address] [place] [address] [facility] BLOOD BANK [address] [place] [address] Glucose by meter POCT (05/02/2017 8:25 PM [facility]) athologist Signature GLUCOSE BY 186 mg/dL 05/02/2017 [facility] METER POCT 8:25 PM [facility] POCT RESULTS Comment: Reference Ranges ? Age ?Normal ?Critical Values ? 0 day ?44-98 mg/d L ? <40 and >=400 mg/dL ? 1 day ?53-93 mg/d L ? <50 and >=400 mg/dL ? 2 day ?50-100 mg/ dL ?<50 and >=400 mg/dL ? 3 day ?62-110 mg/ dL ?<50 and >=400 mg/dL ? 4-7 day ?57-107 mg/d L ?<50 and >=400 mg/dL ? 8 d - 6 yr ? 69-115 mg/dL ?<50 and >=400 mg/dL ? 6 yr - 11 yr ?? 84-110 mg/dL ?<50 and >=400 mg/dL ? 11 yr - 16 yr ??79-116 mg/dL ?<50 and >=400 mg/dL ? > 16 yr ?70-125 mg/d L ?<60 and >=400 mg/dL Specimen Anatomical Collection Method Collection Time Receive d Time (Source) Location / / Volume Laterality Blood specimen 05/02/2017 8:25 PM 018 8:28 (specimen) CONTINUOUS TOWEL ROLLER PM CONTINUOUS TOWEL ROLLER Historical Provider LAB - ENTER/EDIT POCT Performing Organization Address City/State/ZIP Code Phon e Number [facility] POCT RESULTS [address] [place] [address] Glucose by meter POCT (05/02/2017 5:09 PM [facility]) P athologist Signature GLUCOSE BY 171 mg/dL 05/02/2017 [facility] METER POCT 5:09 PM [facility] POCT RESULTS Comment: Reference Ranges ? Age ?Normal ?Critical Values ? 0 day ?44-98 mg/d L ? <40 and >=400 mg/dL ? 1 day ?53-93 mg/d L ? <50 and >=400 mg/dL ? 2 day ?50-100 mg/ dL ?<50 and >=400 mg/dL ? 3 day ?62-110 mg/ dL ?<50 and >=400 mg/dL ? 4-7 day ?57-107 mg/d L ?<50 and >=400 mg/dL ? 8 d - 6 yr ? 69-115 mg/dL ?<50 and >=400 mg/dL ? 6 yr - 11 yr ?? 84-110 mg/dL ?<50 and >=400 mg/dL ? 11 yr - 16 yr ??79-116 mg/dL ?<50 and >=400 mg/dL ? > 16 yr ?70-125 mg/d L ?<60 and >=400 mg/dL Specimen Anatomical Collection Method Collection Time Receive d Time (Source) Location / / Volume Laterality Blood specimen 05/02/2017 5:09 PM 018 5:10 (specimen) CONTINUOUS TOWEL ROLLER PM CONTINUOUS TOWEL ROLLER Historical Provider LAB - ENTER/EDIT POCT Performing Organization Address City/State/ZIP Code Phon e Number [facility] POCT RESULTS [address] [place] [address] Glucose by meter POCT (05/02/2017 11:41 AM [facility]) athologist Signature GLUCOSE BY 197 mg/dL 05/02/2017 [facility] METER POCT 11:41 AM [facility] POCT RESULTS Comment: Reference Ranges ? Age ?Normal ?Critical Values ? 0 day ?44-98 mg/d L ? <40 and >=400 mg/dL ? 1 day ?53-93 mg/d L ? <50 and >=400 mg/dL ? 2 day ?50-100 mg/ dL ?<50 and >=400 mg/dL ? 3 day ?62-110 mg/ dL ?<50 and >=400 mg/dL ? 4-7 day ?57-107 mg/d L ?<50 and >=400 mg/dL ? 8 d - 6 yr ? 69-115 mg/dL ?<50 and >=400 mg/dL ? 6 yr - 11 yr ?? 84-110 mg/dL ?<50 and >=400 mg/dL ? 11 yr - 16 yr ??79-116 mg/dL ?<50 and >=400 mg/dL ? > 16 yr ?70-125 mg/d L ?<60 and >=400 mg/dL Specimen Anatomical Collection Method Collection Time Receive d Time (Source) Location / / Volume Laterality Blood specimen 05/02/2017 11:41 8 (specimen) AM CONTINUOUS TOWEL ROLLER 11:42 AM CONTINUOUS TOWEL ROLLER Historical Provider LAB - ENTER/EDIT POCT Performing Organization Address City/State/ZIP Code Phon e Number [facility] POCT RESULTS [address] [place] [address] Glucose by meter POCT (05/02/2017 8:15 AM CONTINUOUS TOWEL ROLLER) athologist Signature GLUCOSE BY 163 mg/dL 05/02/2017 [facility] METER POCT 8:15 AM [facility] POCT RESULTS Comment: Reference Ranges ? Age ?Normal ?Critical Values ? 0 day ?44-98 mg/d L ? <40 and >=400 mg/dL ? 1 day ?53-93 mg/d L ? <50 and >=400 mg/dL ? 2 day ?50-100 mg/ dL ?<50 and >=400 mg/dL ? 3 day ?62-110 mg/ dL ?<50 and >=400 mg/dL ? 4-7 day ?57-107 mg/d L ?<50 and >=400 mg/dL ? 8 d - 6 yr ? 69-115 mg/dL ?<50 and >=400 mg/dL ? 6 yr - 11 yr ?? 84-110 mg/dL ?<50 and >=400 mg/dL ? 11 yr - 16 yr ??79-116 mg/dL ?<50 and >=400 mg/dL ? > 16 yr ?70-125 mg/d L ?<60 and >=400 mg/dL Specimen Anatomical Collection Method Collection Time Receive d Time (Source) Location / / Volume Laterality Blood specimen 05/02/2017 8:15 AM 018 8:15 (specimen) CONTINUOUS TOWEL ROLLER AM CONTINUOUS TOWEL ROLLER Historical Provider LAB - ENTER/EDIT POCT Performing Organization Address City/State/ZIP Code Phon e Number [facility] POCT RESULTS [address] [address] (ABNORMAL) CBC WITH PLATELETS AND DIFFERENTIAL (05/02/2017 8:07 AM CONTINUOUS TOWEL ROLLER) [facility] gist Method Time Signature WBC 15.0 (H) 4.0 - 05/02/2017 HEALTH 11.0 8:16 AM [facility] RBC Count 3.71 (L) 4.40 - 05/02/2017 [facility] 6.20 8:16 AM [facility] Hemoglobin 10.5 (L) 14.0 - 05/02/2017 [facility] 18.0 g/dL 8:16 AM [facility] Hematocrit 32.1 (L) 40.0 - 05/02/2017 [facility] 54.0 % 8:16 AM [facility] MCV 87 80 - 100 05/02/2017 [facility] fL 8:16 AM [facility] MCH 28.3 27.0 - 05/02/2017 HEALTH 34.0 pg 8:16 AM CONTINUOUS TOWEL ROLLER [email or web address] MCHC 32.7 32.0 - 05/02/2017 HEALTH 36.0 g/dL 8:16 AM [facility] RDW 14.6 (H) 11.0 - 05/02/2017 HEALTH 14.5 % 8:16 AM CONTINUOUS TOWEL ROLLER [email or web address] Platelet Count 166 140 - 440 05/02/2017 [facility] thou/uL 8:16 AM CONTINUOUS TOWEL ROLLER [email or web address] [facility] Mean Platelet 11.8 8.5 - 05/02/2017 [facility] Volume 12.5 fL 8:16 AM [facility] % Neutrophils 71 (H) 50 - 70 % 05/02/2017 HEALTH 8:16 AM [facility] % Lymphocytes 16 (L) 20 - 40 % 05/02/2017 [facility] 8:16 AM [employer] [email or web address] % Monocytes 13 (H) 2 - 10 % 05/02/2017 [facility] 8:16 AM [employer] [email or web address] % Eosinophils 0 0 - 6 % 05/02/2017 [facility] 8:16 AM [employer] [facility] % Basophils 1 0 - 2 % 05/02/2017 [facility] 8:16 AM [facility] Absolute 10.6 (H) 2.0 - 7.7 05/02/2017 [facility] Neutrophils thou/uL 8:16 AM [employer] [email or web address] Absolute 2.3 0.8 - 4.4 05/02/2017 [facility] Lymphocytes thou/uL 8:16 AM [employer] [email or web address] Absolute 1.9 (H) 0.0 - 0.9 05/02/2017 [facility] Monocytes thou/uL 8:16 AM [employer] [email or web address] Eosinophils 0.0 0.0 - 0.4 05/02/2017 HEALTH Absolute thou/uL 8:16 AM [employer] [email or web address] Absolute 0.1 0.0 - 0.2 05/02/2017 HEALTH Basophils thou/uL 8:16 AM [employer] [facility] Specimen Anatomical Collection Method / Collection Time Recei nona Time (Source) Location / Volume Laterality Blood specimen STRUCTURE OF LEFT Venipuncture / 05/02/2017 8:07 02/2018 8:10 (specimen) UPPER LIMB / Unknown AM CONTINUOUS TOWEL ROLLER AM CONTINUOUS TOWEL ROLLER Unknown Yadira Draper MD LAB - BLOOD ORDERABLES Performing Organization Address City/[facility] Phon e Number [facility] [place] [address] [address] [facility] Magnesium (05/02/2017 8:07 AM CONTINUOUS TOWEL ROLLER) P athologist Signature Magnesium 1.8 1.8 - 2.6 05/02/2017 HEALTH mg/dL 8:[address] [facility] Specimen Anatomical Collection Method / Collection Time Recei nona Time (Source) Location / Volume Laterality Blood specimen STRUCTURE OF LEFT Venipuncture / 05/02/2017 8:07 02/2018 8:10 (specimen) UPPER LIMB / Unknown AM CONTINUOUS TOWEL ROLLER AM CONTINUOUS TOWEL ROLLER Unknown Yadira Draper MD LAB - BLOOD ORDERABLES Performing Organization Address City/[facility] Phon e Number [facility] [place] [address] [address] [facility] (ABNORMAL) Renal panel (05/02/2017 8:07 AM CONTINUOUS TOWEL ROLLER) Analysis Performed At Patho logist Time Signature Albumin 3.3 (L) 3.5 - 5.0 05/02/2017 HEALTH g/dL 8:[address] [facility] Calcium 7.9 (L) 8.5 - 10.5 05/02/2017 HEALTH mg/dL 8:[address] [facility] Phosphorus 2.6 2.5 - 4.5 05/02/2017 M [facility] mg/dL 8:[address] [facility] Glucose 160 (H) 70 - 125 05/02/2017 [facility] mg/dL 8:[address] [facility] Urea Nitrogen 18 8 - 28 05/02/2017 [facility] mg/dL 8:[address] [facility] Creatinine 0.96 0.70 - 05/02/2017 HEALTH 1.30 mg/dL 8:[address] [facility] Sodium 139 136 - 145 05/02/2017 [facility] mmol/L 8:[address] [facility] Potassium 3.9 3.5 - 5.0 05/02/2017 [facility] mmol/L 8:[address] [facility] Chloride 109 (H) 98 - 107 05/02/2017 [facility] mmol/L 8:[address] [facility] Carbon Dioxide 24 22 - 31 05/02/2017 [facility] (CO2) mmol/L 8:[address] [facility] Anion Gap 6 5 - 18 05/02/2017 [facility] mmol/L 8:[address] [facility] GFR Estimate If >60 >60 05/02/2017 [facility] Black mL/min/1.7 8:[address] LABORATORY GFR Estimate >60 >60 05/02/2017 [facility] mL/min/1.7 8:31 [address] LAB[address] Specimen Anatomical Collection Method / Collection Time Recei nona Time (Source) Location / Volume Laterality Blood specimen STRUCTURE OF LEFT Venipuncture / 05/02/2017 8:07 02/2018 8:10 (specimen) UPPER LIMB / Unknown AM CONTINUOUS TOWEL ROLLER AM CONTINUOUS TOWEL ROLLER Unknown Narrative [facility] - 05/02/2017 8:31 AM CONTINUOUS TOWEL ROLLER Fasting Glucose reference range is 70-99 mg/dL per [employer] (ADA) addie rojas. Yadira Draper MD LAB - BLOOD ORDERABLES Performing Organization Address City/State/ZIP Code Phon e Number O LABORATORY [facility] [place] [address] [facility] [address] [place] [address] [facility] [address] [address], [facility] Crossmatch red cells (05/02/2017 12:04 AM CONTINUOUS TOWEL ROLLER) [facility] Method Time Signature Crossmatch Compatible 05/02/2017 [facility] BLOOD 12:04 AM BANK CONTINUOUS TOWEL ROLLER BLOOD [id number] 05/02/2017 [facility] BLOOD EXPIRATION 12:04 AM BANK DATE CONTINUOUS TOWEL ROLLER Unit ABO/RH O Pos 05/02/2017 [facility] BLOOD 12:04 AM BANK CONTINUOUS TOWEL ROLLER Unit Number [id number] 05/02/2017 [facility] BLOOD 12:04 AM BANK CONTINUOUS TOWEL ROLLER Status Transfused 05/02/2017 [facility] BLOOD 12:04 AM BANK CONTINUOUS TOWEL ROLLER Component Red Blood Cells 05/02/2017 [facility] BLOOD 12:04 AM BANK CONTINUOUS TOWEL ROLLER Product Code [id number] 05/02/2017 [facility] BLOOD 12:04 AM BANK CONTINUOUS TOWEL ROLLER ISSUE DATE AND [id number] 05/02/2017 [facility] BLOOD TIME 12:04 AM BANK CONTINUOUS TOWEL ROLLER BLOOD TYPE 5100 05/02/2017 [facility] BLOOD 12:04 AM BANK CONTINUOUS TOWEL ROLLER CODING SYSTEM [id number] 05/02/2017 [facility] BLOOD 12:04 AM BANK CONTINUOUS TOWEL ROLLER Specimen (Source) Anatomical Location Collection Method / Collectio n Time Received Time / Laterality Volume Derian Yeager MD LAB - BLOOD BANK PRODUCT ORD ER Performing Organization Address City/State/ZIP Code Phon e Number [facility] [address] [facility] [address] [facility] BLOOD B[facility] [address] [place] [address] Crossmatch red cells (05/02/2017 12:04 AM CONTINUOUS TOWEL ROLLER) [facility] Method Time Signature Crossmatch Compatible 05/02/2017 [facility] BLOOD 12:04 AM BANK CONTINUOUS TOWEL ROLLER BLOOD [id number] 05/02/2017 [facility] BLOOD EXPIRATION 12:04 AM BANK DATE CONTINUOUS TOWEL ROLLER Unit ABO/RH O Pos 05/02/2017 [facility] BLOOD 12:04 AM BANK CONTINUOUS TOWEL ROLLER Unit Number [id number] 05/02/2017 [facility] BLOOD 12:04 AM BANK CONTINUOUS TOWEL ROLLER Status Transfused 05/02/2017 [facility] BLOOD 12:04 AM BANK CONTINUOUS TOWEL ROLLER Component Red Blood Cells 05/02/2017 [facility] BLOOD 12:04 AM BANK CONTINUOUS TOWEL ROLLER Product Code [id number] 05/02/2017 [facility] BLOOD 12:04 AM BANK CONTINUOUS TOWEL ROLLER ISSUE DATE AND [id number] 05/02/2017 [facility] BLOOD TIME 12:04 AM BANK CONTINUOUS TOWEL ROLLER BLOOD TYPE 5100 05/02/2017 [facility] BLOOD 12:04 AM BANK CONTINUOUS TOWEL ROLLER CODING SYSTEM [id number] 05/02/2017 BLOOD 12:04 AM BANK CONTINUOUS TOWEL ROLLER Specimen (Source) Anatomical Location Collection Method / Collectio n Time Received Time / Laterality Volume Derian Yeager MD LAB - BLOOD BANK PRODUCT ORD ER Performing Organization Address City/State/ZIP Code Phon e Number [facility] BLOOD BANK [address] [place] [address] BLOOD BANK [address] [place] [address] Glucose by meter POCT (05/01/2017 9:09 PM [facility]) athologist Signature GLUCOSE BY 187 mg/dL 05/01/2017 [facility] METER POCT 9:09 PM [facility]PITAL POCT RESULTS Comment: Reference Ranges ? Age ?Normal ?Critical Values ? 0 day ?44-98 mg/d L ? <40 and >=400 mg/dL ? 1 day ?53-93 mg/d L ? <50 and >=400 mg/dL ? 2 day ?50-100 mg/ dL ?<50 and >=400 mg/dL ? 3 day ?62-110 mg/ dL ?<50 and >=400 mg/dL ? 4-7 day ?57-107 mg/d L ?<50 and >=400 mg/dL ? 8 d - 6 yr ? 69-115 mg/dL ?<50 and >=400 mg/dL ? 6 yr - 11 yr ?? 84-110 mg/dL ?<50 and >=400 mg/dL ? 11 yr - 16 yr ??79-116 mg/dL ?<50 and >=400 mg/dL ? > 16 yr ?70-125 mg/d L ?<60 and >=400 mg/dL Specimen Anatomical Collection Method Collection Time Receive d Time (Source) Location / / Volume Laterality Blood specimen 05/01/2017 9:09 PM 018 9:16 (specimen) CONTINUOUS TOWEL ROLLER PM CONTINUOUS TOWEL ROLLER Historical Provider LAB - ENTER/EDIT POCT Performing Organization Address City/State/ZIP Code Phon e Number [facility] POCT RESULTS [address] [address] (ABNORMAL) Hemoglobin (05/01/2017 7:21 PM CONTINUOUS TOWEL ROLLER) athologist Signature Hemoglobin 11.4 (L) 14.0 - 05/01/2017 [facility] 18.0 g/dL 7:[address] [facility] Specimen Anatomical Collection Method / Collection Time Recei nona Time (Source) Location / Volume Laterality Blood specimen STRUCTURE OF RIGHT Venipuncture / 05/01/2017 7:21 7:26 (specimen) HAND / Unknown Unknown PM CONTINUOUS TOWEL ROLLER PM CONTINUOUS TOWEL ROLLER Naresh Grant MD LAB - BLOOD ORDERABLES Performing Organization Address City/State/ZIP Code Phon [place] [address] [address] [facility] Glucose by meter POCT (05/01/2017 5:47 PM CONTINUOUS TOWEL ROLLER) P athologist Signature GLUCOSE BY 211 mg/dL 05/01/2017 [facility] METER POCT 5:47 PM [facility] POCT RESULTS Comment: Reference Ranges ? Age ?Normal ?Critical Values ? 0 day ?44-98 mg/d L ? <40 and >=400 mg/dL ? 1 day ?53-93 mg/d L ? <50 and >=400 mg/dL ? 2 day ?50-100 mg/ dL ?<50 and >=400 mg/dL ? 3 day ?62-110 mg/ dL ?<50 and >=400 mg/dL ? 4-7 day ?57-107 mg/d L ?<50 and >=400 mg/dL ? 8 d - 6 yr ? 69-115 mg/dL ?<50 and >=400 mg/dL ? 6 yr - 11 yr ?? 84-110 mg/dL ?<50 and >=400 mg/dL ? 11 yr - 16 yr ??79-116 mg/dL ?<50 and >=400 mg/dL ? > 16 yr ?70-125 mg/d L ?<60 and >=400 mg/dL Specimen Anatomical Collection Method Collection Time Receive d Time (Source) Location / / Volume Laterality Blood specimen 05/01/2017 5:47 PM 018 5:48 (specimen) CONTINUOUS TOWEL ROLLER PM CONTINUOUS TOWEL ROLLER Historical Provider LAB - ENTER/EDIT POCT Performing Organization Address City/State/ZIP Code Phon e Number [facility] POCT RESULTS [address] [place] [address] (ABNORMAL) Hemoglobin (05/01/2017 12:12 PM CONTINUOUS TOWEL ROLLER) P athologist Signature Hemoglobin 10.8 (L) 14.0 - 05/01/2017 [facility] 18.0 g/dL 12:20 PM CONTINUOUS TOWEL ROLLER [facility] Specimen Anatomical Collection Method Collection Time Receive d Time (Source) Location / / Volume Laterality Blood specimen VAD(CVC, PICC) / 05/01/2017 12:12 05/01 (specimen) Unknown PM CONTINUOUS TOWEL ROLLER 12:12 PM CONTINUOUS TOWEL ROLLER (Line) Derian Yeager MD LAB - BLOOD ORDERABLES Performing Organization Address City/State/ZIP Code Phon [place] [address] [facility] [address] [place] [id number] [place] [address] LABORATORY Glucose by meter POCT (05/01/2017 11:20 AM CONTINUOUS TOWEL ROLLER) athologist Signature GLUCOSE BY 220 mg/dL 05/01/2017 [facility] METER POCT 11:20 AM [facility] POCT RESULTS Comment: Reference Ranges ? Age ?Normal ?Critical Values ? 0 day ?44-98 mg/d L ? <40 and >=400 mg/dL ? 1 day ?53-93 mg/d L ? <50 and >=400 mg/dL ? 2 day ?50-100 mg/ dL ?<50 and >=400 mg/dL ? 3 day ?62-110 mg/ dL ?<50 and >=400 mg/dL ? 4-7 day ?57-107 mg/d L ?<50 and >=400 mg/dL ? 8 d - 6 yr ? 69-115 mg/dL ?<50 and >=400 mg/dL ? 6 yr - 11 yr ?? 84-110 mg/dL ?<50 and >=400 mg/dL ? 11 yr - 16 yr ??79-116 mg/dL ?<50 and >=400 mg/dL ? > 16 yr ?70-125 mg/d L ?<60 and >=400 mg/dL Specimen Anatomical Collection Method Collection Time Receive d Time (Source) Location / / Volume Laterality Blood specimen 05/01/2017 11:20 8 (specimen) AM CONTINUOUS TOWEL ROLLER 11:25 AM CONTINUOUS TOWEL ROLLER Historical Provider LAB - ENTER/EDIT POCT Performing Organization Address City/State/ZIP Code Phon e Number [facility] POCT RESULTS [address] [place] [address] XR Abdomen Port 1 View (05/01/2017 10:47 AM CONTINUOUS TOWEL ROLLER) Anatomical Region Laterality Modality Abdomen/Pelvis Other Specimen (Source) Anatomical Location Collection Method / Collectio n Time Received Time / Laterality Volume Narrative 05/01/2017 10:54 AM CONTINUOUS TOWEL ROLLER XR ABDOMEN AP PORTABLE 05/01/2017 10:47 AM INDICATION: Converted to Open COMPARISON: None. FINDINGS: Surgical skin katya are seen at midline, just to the left of midline at approximately the level of the umbilicus, just the right of midline in the right upper quadrant. Bowel katya are see n in the region of the gastroesophageal junction. Drainage catheter is seen in the left up per quadrant. The bowel gas pattern is unremarkable. No other radiopaque foreign bodies are identified. The results were called to the operating room at time of dictation. Procedure Note Esther Owusu MD - 1 XR ABDOMEN AP PORTABLE 05/01/2017 10:47 AM INDICATION: Converted to Open COMPARISON: None. FINDINGS: Surgical skin katya are seen at midline, just to the left of midline at approximately the level of the umbilicus, just the right of midline in the right upper quadrant. Bowel katya are seen in the region of the gastroesophageal junction. Drainage catheter is seen in the left up per quadrant. The bowel gas pattern is unremarkable. No other radiopaque foreign bodies are identified. The results were called to the operating room at time of dictation. Naresh Grant MD IMG DIAGNOSTIC IMAGING ORDER SAMANTHA Glucose by meter POCT (05/01/2017 10:05 AM CONTINUOUS TOWEL ROLLER) P athologist Signature GLUCOSE BY 172 mg/dL 05/01/2017 [facility] POCT 10:05 AM [facility] POCT RESULTS Comment: Reference Ranges ? Age ?Normal ?Critical Values ? 0 day ?44-98 mg/d L ? <40 and >=400 mg/dL ? 1 day ?53-93 mg/d L ? <50 and >=400 mg/dL ? 2 day ?50-100 mg/ dL ?<50 and >=400 mg/dL ? 3 day ?62-110 mg/ dL ?<50 and >=400 mg/dL ? 4-7 day ?57-107 mg/d L ?<50 and >=400 mg/dL ? 8 d - 6 yr ? 69-115 mg/dL ?<50 and >=400 mg/dL ? 6 yr - 11 yr ?? 84-110 mg/dL ?<50 and >=400 mg/dL ? 11 yr - 16 yr ??79-116 mg/dL ?<50 and >=400 mg/dL ? > 16 yr ?70-125 mg/d L ?<60 and >=400 mg/dL Specimen Anatomical Collection Method Collection Time Receive d Time (Source) Location / / Volume Laterality Blood specimen 05/01/2017 10:05 8 (specimen) AM CONTINUOUS TOWEL ROLLER 10:06 AM CONTINUOUS TOWEL ROLLER Historical Provider LAB - ENTER/EDIT POCT Performing Organization Address City/State/ZIP Code Phon e Number [facility] POCT RESULTS [address] [place] [address] (ABNORMAL) Blood gas arterial (05/01/2017 10:00 AM CONTINUOUS TOWEL ROLLER) [facility] Method Time Signature pH Arterial 7.34 (L) 7.37 - 7.44 05/01/2017 [facility] 10[facility] pCO2 Arterial 35 35 - 45 mm 05/01/2017 [facility] Hg 10:14 AM [facility] pO2 Arterial 162 (H) 75 - 85 mm 05/01/2017 [facility] Hg 10:14 AM [facility] Bicarbonate, 20.1 (L) 23.0 - 29.0 05/01/2017 HEALTH Arterial Calc mmol/L 10:14 AM [facility] O2 Sat, Arterial 99.4 (H) 95.0 - 96.0 05/01/2017 [facility] % 10:14 AM [facility] Oxyhemoglobin 97.7 (H) 95.0 - 96.0 05/01/2017 [facility] % 10:14 AM [facility] Base -6.2 mmol/L 05/01/2017 [facility] Excess/Deficit 10:14 AM [facility] (+/-) [facility] Ventilation Mode VCV 05/01/2017 [facility] 10:[facility] Rate 18 rr/min 05/01/2017 [facility] 10:14 AM [facility] Flow 2.0 LPM 05/01/2017 [facility] 10:14 AM [facility] Peep 6 cm H2O 05/01/2017 [facility] 10:14 AM [facility] Sample Stabilized 37.0 degrees C 05/01/2017 [facility] Temperature 10:14 AM [facility] Ventilator Tidal 561 mL 05/01/2017 HEALTH Volume 10:14 AM [facility] Specimen Anatomical Collection Method Collection Time Receive d Time (Source) Location / / Volume Laterality Arterial blood 05/01/2017 10:00 8 specimen AM CONTINUOUS TOWEL ROLLER 10:10 AM CONTINUOUS TOWEL ROLLER (specimen) (Line) Derian Yeager MD LAB - BLOOD ORDERABLES Performing Organization Address City/State/ZIP Code Phon [place] [address] [address] [facility] (ABNORMAL) Basic metabolic panel (05/01/2017 10:00 AM CONTINUOUS TOWEL ROLLER) Analysis Performed At Patho logist Time Signature Sodium 136 136 - 145 05/01/2017 [facility] mmol/L 10:[address] [facility] Potassium 5.1 (H) 3.5 - 5.0 05/01/2017 [facility] mmol/L 10:[address] [facility] Chloride 107 98 - 107 05/01/2017 [facility] mmol/L 10:[address] [facility] Carbon Dioxide 17 (L) 22 - 31 05/01/2017 [facility] (CO2) mmol/L 10:[address] [facility] Anion Gap 12 5 - 18 05/01/2017 [facility] mmol/L 10:[address] [facility] Glucose 228 (H) 70 - 125 05/01/2017 HEALTH mg/dL 10:[address] [facility] Calcium 8.3 (L) 8.5 - 10.5 05/01/2017 [facility] mg/dL 10:[address] [facility] Urea Nitrogen 15 8 - 28 05/01/2017 [facility] mg/dL 10:[address] [facility] Creatinine 1.16 0.70 - 05/01/2017 HEALTH 1.30 mg/dL 10:[address] [facility] GFR Estimate If >60 >60 05/01/2017 [facility] Black mL/min/1.7 10:[address] LABORATORY GFR Estimate >60 >60 05/01/2017 [facility] mL/min/1.7 10:[address] LABORATORY Specimen Anatomical Collection Method / Collection Time Recei nona Time (Source) Location / Volume Laterality Blood specimen Venipuncture / 05/01/2017 10:00 018 (specimen) Unknown AM CONTINUOUS TOWEL ROLLER 10:10 AM CONTINUOUS TOWEL ROLLER (Line) Narrative [facility] - 05/01/2017 10:26 AM CONTINUOUS TOWEL ROLLER Fasting Glucose reference range is 70-99 mg/dL per [employer] (ADA) addie rojas. Derian Yeager MD LAB - BLOOD ORDERABLES Performing Organization Address [facility] Phon [place] [phone] [facility] [id number] [place], [place] [address]S LABORATORY [facility] [address] [place] [id number], [facility] Magnesium (05/01/2017 10:00 AM CONTINUOUS TOWEL ROLLER) athologist Signature Magnesium 2.2 1.8 - 2.6 05/01/2017 HEALTH mg/dL 10:30 AM CONTINUOUS TOWEL ROLLER [facility] Specimen Anatomical Collection Method / Collection Time Recei nona Time (Source) Location / Volume Laterality Blood specimen Venipuncture / 05/01/2017 10:00 018 (specimen) Unknown AM CONTINUOUS TOWEL ROLLER 10:10 AM CONTINUOUS TOWEL ROLLER (Line) Derian Yeager MD LAB - BLOOD ORDERABLES Performing Organization Address [facility] Phon [place] [address] [phone] 2-[facility] [address] [address] [facility]ORY (ABNORMAL) Hemoglobin (05/01/2017 9:55 AM CONTINUOUS TOWEL ROLLER) P athologist Signature Hemoglobin 9.2 (L) 14.0 - 18.0 05/01/2017 HEALTH g/dL 10:05 AM CONTINUOUS TOWEL ROLLER [facility] LABORATORY Specimen Anatomical Collection Method / Collection Time Recei nona Time (Source) Location / Volume Laterality Blood specimen Venipuncture / 05/01/2017 9:55 05/01/19 18 (specimen) Unknown AM CONTINUOUS TOWEL ROLLER 10:01 AM CONTINUOUS TOWEL ROLLER Derian Yeager MD LAB - BLOOD ORDERABLES Performing Organization Address City/State/ZIP Code Phon e Number [facility] [place] [address] [facility] [address] [facility] Surgical Pathology Exam (05/01/2017 9:49 AM CONTINUOUS TOWEL ROLLER) [facility] Method Time Signature Case Report Surgical Pathology Report ? Case: [id number] ? 05/03/2017 [facility] Authorizing Provider: ??Josiah Grant MD ?Collected: ? 05/01/2017 0949 ? 1:03 PM CONTINUOUS TOWEL ROLLER [facility] Ordering Location: ? [facility] OR ?? Received: ?05/01/2017 1118 ? DONTE Drake Pathologist: ? Frederic Escalante MD ? LABORATORY Specimen: ?Spleen ? Final RESECTED SPLEEN: 05/03/2017 [facility] Diagnosis ??- ??NO HISTOLOGIC ABNORMALITY 1:03 PM CONTINUOUS TOWEL ROLLER [facility] Electronically signed by Frederic Escalante MD on 201 8 at ??1:03 PM [facility] Microscopic Microscopic 05/03/2017 [facility] Description examination 1:03 PM [facility] performed, MUNIR substantiating LABORATORY the above diagnosis. Clinical Pre-op Diagnosis: Morbid obesity [E66.01] 05/03/2017 [facility] Information Time Placed in Formalin: Not provided 1:03 PM [facility] MUNIR LABORATORY Gross The specimen is 05/03/2017 HEALTH Description received in 1:03 PM [facility], labeled MUNIR with the LABORATORY patient's name and spleen, and consists of an entire spleen measuring 12.5 cm from superior to inferior, 8 cm from anterior to posterior, 4 cm from medial to lateral, and weighing 279 grams. A small amount of lobulated yellow fat is attached to the hilar surface. A 1.2-cm area of capsular avulsion is present in the middle of the hilar surface. The capsule is otherwise smooth, thin, intact, and free of lesions. Serial sectioning of the spleen demonstrates soft red parenchyma with readily visible lymphoid follicles and no discrete lesions. Three personnel representative sections are submitted. JPL:klj Charges CPT: 62314 05/03/2017 [facility] ICD-10: E66.01 1:03 PM [facility] Result Flag Normal 05/03/2017 [facility] 1:03 PM [facility] Comment: SPECIMEN PROCESSING: All histology slide preparation and stai ns; and cytology slide preparation, staining, and rotating equipment engineer screening done at [facility] are performed at [facility], [address] [place] [address], [id number], with final interpretatio n, frozen section analysis, and cytology adequacy assessment at indicated laboratory. Specimen Anatomical Collection Method Collection Time Receive d Time (Source) Location / / Volume Laterality Tissue specimen SPLENIC STRUCTURE 05/01/2017 9:49 AM 0 05/01/2017 (specimen) / Unknown CONTINUOUS TOWEL ROLLER 11:18 AM CONTINUOUS TOWEL ROLLER Naresh PIÑA - JUDIE LOPEZ Performing Organization Address City/State/ZIP Code Phon [place] [id number] [place] [address] EXTRA BLUE TOP TUBE (05/01/2017 9:30 AM CONTINUOUS TOWEL ROLLER) Specimen Anatomical Collection Method / Collection Time Recei nona Time (Source) Location / Volume Laterality Blood specimen Venipuncture / 05/01/2017 9:30 05/01/19 18 9:39 (specimen) Unknown AM CONTINUOUS TOWEL ROLLER AM CONTINUOUS TOWEL ROLLER Naresh Grant MD LAB - BLOOD ORDERABLES (ABNORMAL) CBC with platelets (05/01/2017 9:30 AM CONTINUOUS TOWEL ROLLER) [facility] Method Time Signature WBC 18.8 (H) 4.0 - 11.0 05/01/2017 HEALTH thou/uL 9:46 AM [facility] RBC Count 3.66 (L) 4.40 - 05/01/2017 HEALTH 6.20 9:46 AM [facility] Hemoglobin 10.1 (L) 14.0 - 05/01/2017 HEALTH 18.0 g/dL 9:46 AM [facility] Hematocrit 31.0 (L) 40.0 - 05/01/2017 HEALTH 54.0 % 9:46 AM [facility] MCV 85 80 - 100 05/01/2017 HEALTH fL 9:46 AM [facility] MCH 27.6 27.0 - 05/01/2017 HEALTH 34.0 pg 9:46 AM [facility] [facility] MCHC 32.6 32.0 - 05/01/2017 HEALTH 36.0 g/dL 9:46 AM [facility] RDW 13.7 11.0 - 05/01/2017 HEALTH 14.5 % 9:46 AM [facility] Platelet Count 175 140 - 440 05/01/2017 [facility] thou/uL 9:46 AM [facility] Mean Platelet 12.2 8.5 - 12.5 05/01/2017 HEALTH Volume fL 9:46 AM [facility] Specimen Anatomical Collection Method / Collection Time Recei nona Time (Source) Location / Volume Laterality Blood specimen Venipuncture / 05/01/2017 9:30 05/01/19 18 9:37 (specimen) Unknown AM CONTINUOUS TOWEL ROLLER AM CONTINUOUS TOWEL ROLLER (Line) Derian Yeager MD LAB - BLOOD ORDERABLES Performing Organization Address City/[facility]/[place] [address] [facility] [address] [place] [address] [facility] TYPE AND SCREEN, ADULT (05/01/2017 9:30 AM CONTINUOUS TOWEL ROLLER) P athologist Signature ABO/RH(D) O POS 05/01/2017 [facility] 10:08 AM CONTINUOUS TOWEL ROLLER Antibody Negative Negative 05/01/2017 BLOOD BANK Screen 10:08 AM CONTINUOUS TOWEL ROLLER Specimen Anatomical Collection Method Collection Time Receive d Time (Source) Location / / Volume Laterality Blood specimen VAD(CVC, PICC) / 05/01/2017 9:30 AM 01/2018 9:41 (specimen) Unknown CONTINUOUS TOWEL ROLLER AM CONTINUOUS TOWEL ROLLER Derian Yeager MD LAB - BLOOD BANK TEST ORDER Performing Organization Address City/State/ZIP Code Phon e Number [facility] [address] [place] [address] BLOOD BANK [address] [place] [address] Glucose by meter POCT (05/01/2017 8:21 AM CONTINUOUS TOWEL ROLLER) P athologist Signature GLUCOSE BY 138 mg/dL 05/01/2017 [facility] METER POCT 8:21 AM [facility] POCT RESULTS Comment: Reference Ranges ? Age ?Normal ?Critical Values ? 0 day ?44-98 mg/d L ? <40 and >=400 mg/dL ? 1 day ?53-93 mg/d L ? <50 and >=400 mg/dL ? 2 day ?50-100 mg/ dL ?<50 and >=400 mg/dL ? 3 day ?62-110 mg/ dL ?<50 and >=400 mg/dL ? 4-7 day ?57-107 mg/d L ?<50 and >=400 mg/dL ? 8 d - 6 yr ? 69-115 mg/dL ?<50 and >=400 mg/dL ? 6 yr - 11 yr ?? 84-110 mg/dL ?<50 and >=400 mg/dL ? 11 yr - 16 yr ??79-116 mg/dL ?<50 and >=400 mg/dL ? > 16 yr ?70-125 mg/d L ?<60 and >=400 mg/dL Specimen Anatomical Collection Method Collection Time Receive d Time (Source) Location / / Volume Laterality Blood specimen 05/01/2017 8:21 AM 018 8:22 (specimen) CONTINUOUS TOWEL ROLLER AM CONTINUOUS TOWEL ROLLER Historical Provider LAB - ENTER/EDIT POCT Performing Organization Address City/State/ZIP Code Phon e Number [facility] POCT RESULTS [address] [place] [address] Glucose by meter POCT (05/01/2017 6:03 AM CONTINUOUS TOWEL ROLLER) P athologist Signature GLUCOSE BY 175 mg/dL 05/01/2017 [facility] METER POCT 6:03 AM [facility] POCT RESULTS Comment: Reference Ranges ? Age ?Normal ?Critical Values ? 0 day ?44-98 mg/d L ? <40 and >=400 mg/dL ? 1 day ?53-93 mg/d L ? <50 and >=400 mg/dL ? 2 day ?50-100 mg/ dL ?<50 and >=400 mg/dL ? 3 day ?62-110 mg/ dL ?<50 and >=400 mg/dL ? 4-7 day ?57-107 mg/d L ?<50 and >=400 mg/dL ? 8 d - 6 yr ? 69-115 mg/dL ?<50 and >=400 mg/dL ? 6 yr - 11 yr ?? 84-110 mg/dL ?<50 and >=400 mg/dL ? 11 yr - 16 yr ??79-116 mg/dL ?<50 and >=400 mg/dL ? > 16 yr ?70-125 mg/d L ?<60 and >=400 mg/dL Specimen Anatomical Collection Method Collection Time Receive d Time (Source) Location / / Volume Laterality Blood specimen 05/01/2017 6:03 AM 018 6:05 (specimen) CONTINUOUS TOWEL ROLLER AM CONTINUOUS TOWEL ROLLER Historical Provider LAB - ENTER/EDIT POCT Performing Organization Address City/State/ZIP Code Phon e Number [facility] POCT RESULTS 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
--- OUTSIDE RECORDS SUMMARY | 2022-01-01 11:48 | XMS_ITS | Encounter Summary ---
:1945 Author Organization [place] Address [address] [place] [address] Care Team Providers Name Role Phone Benjamin Henao MD Primary Care Provider Reason for Visit Reason Comments Diabetes follow up Encounter Details Date Type Department Care Team Description 01/11/2017 Office Visit - [facility] Benjamin Henao, Type 2 diabetes [facility] Jose R mellitus (H) [facility] [address] [address] [phone] Social History Tobacco Use Types Packs/Day Years [...] - Inhaled Oxygen Concentration - - Weight 141.5 kg (312 lb) 01/11/2017 10:35 AM CDT Height 172.7 cm (5' 8) 01/11/2017 10:35 AM CDT Body Mass Index 47.44 01/11/2017 10:35 AM CDT documented in this encounter Progress Notes Benjamin Henao MD - 01/11/2017 10:[address] Adames who comes in today for follow-up of his diabetes. His last A1c back in September was 8.3. He is currently on 65 units of Lantus along with approximately 60 units of mealtime insulin per day. His blood sugars have been improved over the last 2-3 months, with his average blood sugar being approx imately 150 and only 3-4 episodes of blood sugars in the 200s. He had one episode of hypoglycemia which was noticed right away and was corrected quickly with some candy. He feels well and denies any chest pain or tingling in his feet. He is currently in the process of scheduling bariatric surgery and just needs insurance approval before getting a date. Objective: Vital signs are as per the EMR. In general the patient is alert pleasant and in no acute distress. He appears healthy. Assessment and plan: Type 2 diabetes, degree of control be determined. Check a hemoglobin A1c. I believe it is going to be quite improved given his blood sugars. I will call him with results and further recommendations. documented in this encounter Plan of Treatment Not on filedocumented as of this encounter Procedures Procedure Name Priority Date/Time Associated Diagnosis Comme nts HEMOGLOBIN A1C Routine 01/11/2017 11:16 AM Result s for this CDT procedure are i n the results section . documented in this encounter Results (ABNORMAL) Hemoglobin A1c (01/11/2017 11:16 AM CDT) P athologist Signature Hemoglobin A1C 7.2 (H) 3.5 - 6.0 01/11/2017 % 11:37 AM CDT Specimen Anatomical Collection Method / Collection Time Recei nona Time (Source) Location / Volume Laterality Blood specimen Venipuncture / 01/11/2017 11:16 017 (specimen) Unknown AM CDT 11:16 AM CDT Benjamin Henao MD LAB - BLOOD ORDERABLES documented in this encounter Visit Diagnoses Diagnosis Type 2 diabetes mellitus (H) Type II or unspecified type diabetes mando litus without mention of complication, not stated as uncontrolled documented in this encounter Care Teams Retail Account Specialist Relationship Specialty Start Date End Date Benjamin Henao MD PCP - General Internal Medicine 07/24/16 [address] [place] [address] documented as of this encounter
--- OUTSIDE RECORDS SUMMARY | 2022-01-01 11:48 | XMS_ITS | Encounter Summary ---
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 Discussed admissionprocess and hospital course. Pharmacy information packet given and explained. Patient was given exercises to work on post-op for maintaining muscle mass and strengthening that was created by Physical Therapy. Bariatric quiz reviewed. Rationale for correct answers given and pt. verbalized understanding. Discharge instructions, information card and follow up appointments given and reviewed with pt at this time and patient verbalized understanding. Pt had his pre-op H&P and testing done 04/08/2017 at [facility]. Gayatri Weebr RN, [facility] Surgery and Bariatric Care P [phone] F [phone] AL CHAIR ASSEMBLER documented in this encounter Plan of Treatment Not on filedocumented as of this encounter Visit Diagnoses Not on filedocumented in this encounter Care Teams Plastic Extruding Machine Operator Relationship Specialty Start Date End Date Benjamin Henao MD PCP - General Internal Medicine 07/24/[address] [place] [address] documented as of this encounter
--- OUTSIDE RECORDS SUMMARY | 2022-01-01 11:48 | XMS_ITS | Encounter Summary ---
:1945 Author Organization [place] Address [address] [place] [address] Care Team Providers Name Role Phone Benjamin Henao MD Primary Care Provider Encounter Details Date Type Department Care Team Description 04/08/2017 [facility] [address] [place] [address] Social History Tobacco Use Types [...] on filedocumented in this encounter Care Teams Willower Relationship Specialty Start Date End Date Benjamin Henao MD PCP - General Internal Medicine 07/24/16 [address] [place], [place] [id number] documented as of this encounter
--- OUTSIDE RECORDS SUMMARY | 2022-01-01 11:48 | XMS_ITS | Encounter Summary ---
:1945 Author Organization [place] Address [address] [place] [address] Care Team Providers Name Role Phone Benjamin Henao MD Primary Care Provider Reason for Visit Reason Comments Nutrition Counseling Encounter Details Date Type Department Care Team Description 05/06/2017 [address] - [facility] Bariatric surgery status; [facility] Clinic and Obesity, morbid, BMI 40.0-49.9 (H); Bariatrics Care [facility] [address] [address] Social History Tobacco Use Types Packs/Day Years Used Date Former Smoker Quit: 08/27/18 90 Alcohol Use Standard Drinks/Week Comments Yes 0 (1 standard drink = 0.6 oz pure alcoho l) Sex Assigned at Date Recorded Not on file documented as of this encounter Progress Notes Historical Provider - 05/06/2017 10:00 AM CST Time in: 10:00/Time out: 11:00 Pt presents for 1 week post op dietitian follow up. Reports tolerating full liquids well. Denies n/v, constipation/diarrhea, or significant pain. Taking MVI and SL B12 appropriately. Taking adequate fluids/day. Educated pt on pureed and soft to bariatric regular diets. Provided grocery list and sample meal plan for each diet stage. Pt will begin pureed diet on 05/08/2017 and advance as tolerated to softs/bariatric regular on 05/22/2017. Instructed pt to begin 500 mg calcium citrate BID and 5000IU Vitamin D3 when starting the soft/regular bariatric diet phase. Pt to follow up with RD at 3 months post op. ++Pt was not feeling good; complaints of tired and short of breath - RN for vitals documented in this encounter Plan of Treatment Not on filedocumented as of this encounter Visit Diagnoses Diagnosis Bariatric surgery status Obesity, morbid, BMI 40.0-49.9 (H) Dietary counseling Dietary surveillance and counseling documented in this encounter Care Teams International Logistics Coordinator Relationship Specialty Start Date End Date Benjamin Henao MD PCP - General Internal Medicine 07/24/[address] [place] [address] documented as of this encounter
--- OUTSIDE RECORDS SUMMARY | 2022-01-01 11:48 | XMS_ITS | Encounter Summary ---
:1945 Author Organization [place] Address [address] [place] [address] Care Team Providers Name Role Phone Benjamin Henao MD Unavailable Benjamin Henao MD Primary Care Provider Encounter Details Date Type Department Care Team Description 02/05/2017 Records - [facility] CONVERSION Scan, Non-Provider Social History Tobacco Use Types Packs/Day Years Used Date Former Smoker Quit: 08/27/18 90 Alcohol Use Standard Drinks/Week Comments Yes 0 (1 standard drink = 0.6 oz pure alcoho l) Sex Assigned at Date Recorded Not on file documented as of this encounter Plan of Treatment Not on filedocumented as of this encounter Visit Diagnoses Not on filedocumented in this encounter Care Teams Supply Chain Systems Manager Relationship Specialty Start Date End Date Benjamin Henao MD PCP - General Internal Medicine 07/24/16 [facility] [place] [address] Benjamin Henao MD Assigned PCP 10/05/[address] [place] [id number] documented as of this encounter
--- OUTSIDE RECORDS SUMMARY | 2022-01-01 11:48 | XMS_ITS | Encounter Summary ---
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 Grant. He will be seeing Dr. Henao at [facility] on 03/18/2017 and is planning on doing his pre-op testing at that visit. Will place the orders today per Dr. Grant and Anesthesia. Lorna Krishnamurthy, RN NCE AND ADMINISTRATION MANAGER documented in this encounter Plan of Treatment Not on filedocumented as of this encounter Visit Diagnoses Diagnosis Pre-operative clearance Preoperative examination, unspecified Diabetes (H) Type 1 diabetes mellitus with hyperglyce lacy (H) Type I (juvenile type) diabetes mellitus without mention of complication, not stated as uncontrolled Diabetes mellitus due to underlying cond ition with hyperglycemia (H) Secondary diabetes mellitus with other s pecified manifestations, not stated as uncontrolled, or unspecified Other disorders of arteries, 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
--- OUTSIDE RECORDS SUMMARY | 2022-01-01 11:48 | XMS_ITS | Encounter Summary ---
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
--- OUTSIDE RECORDS SUMMARY | 2022-01-01 11:48 | XMS_ITS | Encounter Summary ---
:1945 Author Organization [place] Address [facility] [place] [address] Care Team Providers Name Role Phone Benjamin Henao MD Primary Care Provider Reason for Visit Reason Comments Fatigue Encounter Details Date Type Department Care Team Description 05/06/2017 Hospital Encounter [facility] Rj Fontana rtness of breath; DEPARTMENT E, Pleural effusion, left; [address] Mild anemia; [place] [id number] [phone] Social History Tobacco Use Types Packs/Day Years [...] - Inhaled Oxygen Concentration - - Weight 135.6 kg (299 lb) 05/06/2017 12:06 PM ELEVATOR ATTENDANT Height 172.7 cm (5' 8) 05/06/2017 12:06 PM ELEVATOR ATTENDANT Body Mass Index 45.46 05/06/2017 12:06 PM ELEVATOR ATTENDANT documented in this encounter Medications at Time of Discharge Medication Sig Dispensed Refills Start Date End Date aspirin 81 MG tablet Take 1 tablet by 0 mouth daily. ATENOLOL PO Take by mouth. 0 Cetirizine HCl (ZYRTEC Take 10 mg by [...] 12/16/2020 mouth. documented as of this encounter ED Notes Rj Fontana MD - 05/06/2017 1:54 PM CST eMERGENCY dEPARTMENT eNCOUnter CHIEF COMPLAINT Chief Complaint Patient presents with ??? Fatigue HPI Faith Adames is a 71 y.o. male with a past medical history significant for s/p lap elizabeth-en-y gastric bypass on 05/01/17, DM, HTN, sleep apnea, and splenectomy who presents to the ED for evaluation of fatigue. The patient reports relatively sudden onset of severe fatigue 2 days ago that has been c onstant in nature. Patient had a elizabeth-en-y gastric bypass performed on 05/01/17 with complications bysplenic bleeding and splenectomy. He was discharged on 05/04/17 reportedly feeling okay, with scheduled follow up at clinic today. During his clinic appointment, they noted him to be dyspneic, and fatigued so he was sent to the ED for further evaluation. Patient does admit to dyspnea on exertion since yesterday, a hard bowel movement today, and mild abdominal pain secondary to surgery. He is currentlyon tramadol, and reports sleeping in a chair at night to alleviate symptoms. Denies any chest pain, vomiting, black stool, loss of consciousness, hit to the head, cough, fever, dysuria, personal cardiac history, or any other medical complaints at this time. Of note, Dr. Grant is the patient's surgeon.He would like to be updated. The creation of this record is based on the scribe???s observations of the work being performed by Rj Fontana MD, and the provider???s statements to them. It was created on his behalf by Abigail Weber, a trained medical assembly. This document has been checked and approved by the attending provider. PAST MEDICAL HISTORY Past Surgical History: Procedure Laterality Date ??? NH LAP GASTRIC BYPASS/ELIZABETH-EN-Y N/A 05/01/2017 Procedure: LAPAROSCOPIC ELIZABETH-EN-Y BASTRIC BYPASS CONVERTED TO OPEN; SPLENECTOMY; Surgeon: Naresh Grant MD; Location: [facility]; Service: General ??? SPLENECTOMY as a result of complications from gastric bypass. Past Medical History: Diagnosis Date ??? BPH (benign prostatic hyperplasia) ??? Coronary artery disease ??? Diabetes mellitus ??? GERD (gastroesophageal reflux disease) ??? Heart disease ??? Hyperlipemia ??? Hyperlipidemia ??? Hypertension ??? Intestinal polyps ??? Pneumonia ??? Sleep apnea CURRENT MEDICATIONS Patient's Medications New Prescriptions No medications on file Previous Medications ASPIRIN 81 MG CHEWABLE TABLET Chew 81 mg daily. ATENOLOL (TENORMIN) 50 MG TABLET Take 50 mg by mouth daily. As directed. ATORVASTATIN (LIPITOR) 40 MG TABLET Take 40 mg by mouth at bedtime. CETIRIZINE (ZYRTEC) 10 MG CAP Take 1 tablet by mouth daily. CHOLECALCIFEROL, VITAMIN D3, (VITAMIN D3) 5,000 UNIT TAB Take 1 tablet (5,000 Units total) by mouthdaily. CONTOUR TEST STRIPS STRIPS CYANOCOBALAMIN (VITAMIN B-12) 500 MCG TABLET Take 1 tablet (500 mcg total) by mouth every other day. FOLIC ACID (FOLVITE) 1 MG TABLET Take 1 mg by mouth daily. As directed. INSULIN GLARGINE (LANTUS SOLOSTAR) 100 UNIT/ML (3 ML) PEN Inject 20 Units under the skin at bedtime. Or as directed. LOSARTAN (COZAAR) 50 MG TABLET Take 50 mg by mouth daily. METFORMIN (GLUCOPHAGE) 1000 MG TABLET Take 1,000 mg by mouth 2 (two) times a day with meals. MICROLET LANCET NOVOLOG 100 UNIT/ML INJECTION Check blood sugar three (3) times daily. 11.9 Type 2 without complications Microlet Color Lancets (100s) - dispense 1, refill PRN for 1 year BD Ultra-fine 6 mm 31G 1 mL syringe - [facility] [address]-66 - dispense 1 case, refill PRN for 1 year OMEPRAZOLE (PRILOSEC) 20 MG CAPSULE Take 20 mg by mouth daily. PEDIATRIC MULTIVITAMIN (FLINTSTONES) CHEW CHEWABLE TABLET Chew 1 tablet 2 (two) times a day. SILDENAFIL (VIAGRA) 100 MG TABLET Take 1 tablet (100 mg total) by mouth as needed for erectile dysfunction. TRAMADOL (ULTRAM) 50 MG TABLET Take 2 tablets (100 mg total) by mouth every 6 (six) hours. URSODIOL (ACTIGALL) 300 MG CAPSULE Take 1 capsule (300 mg total) by mouth 2 (two) times a day. Start 2 wks after surgery. Do not open capsule. Swallow whole with warm water. Modified Medications No medications on file Discontinued Medications No medications on file ALLERGIES Allergies Allergen Reactions ??? Cat Dander ??? Lisinopril Cough FAMILY HISTORY Family History Problem Relation Age of Onset [...] ??? Hypertension Brother ??? Heart disease Brother SOCIAL HISTORY Social History Social History ??? Marital status: Spouse name: N/A ??? Number of children: N/A ??? Years of education: N/A Social History Main Topics ??? Smoking status: Former Smoker Quit date: 09/28/1989 ??? Smokeless tobacco: Never Used Comment: quit 27 yrs ago as of 09/28/2016 ??? Alcohol use Yes Comment: 0-1 per month ??? Drug use: No ??? Sexual activity: Yes Other Topics Concern ??? None Social History Narrative REVIEW OF SYSTEMS Review of Systems Constitutional: Positive for fatigue. Negative for chills and fever. HENT: Negative for congestion and sore throat. Denies hit to the head. Eyes: Negative for visual disturbance. Respiratory: Positive for shortness of breath. Negative for cough. Cardiovascular: Negative for chest pain. Gastrointestinal: Positive for abdominal pain. Negative for blood in stool, constipation, diarrhea, nausea and vomiting. +hard bowel movement today Genitourinary: Negative for dysuria, flank pain and frequency. Musculoskeletal: Negative for back pain. Skin: Negative for rash. Neurological: Negative for syncope, light-headedness and headaches. Psychiatric/Behavioral: Negative for confusion. PHYSICAL EXAM VITAL SIGNS: BP 163/71 Pulse 66 Temp 98.3 ??F (36.8 ??C) (Oral) Resp 14 Ht 5' 8 (1.727 m) Wt (!) 299 lb (135.6 kg) SpO2 98% BMI 45.46 kg/m2 Physical Exam Constitutional: He is oriented to person, place, and time. He appears well- developed and well-nourished. HENT: Head: Normocephalic and atraumatic. Mouth/Throat: Oropharynx is clear and moist. Eyes: EOM are normal. Pupils are equal, round, and reactive to light. No scleral icterus. Neck: Neck supple. No JVD present. Cardiovascular: Normal rate, regular rhythm, normal heart sounds and intact distal pulses. Pulses: Radial pulses are 2+ on the right side, and 2+ on the left side. Dorsalis pedis pulses are 2+ on the right side, and 2+ on the left side. Pulmonary/Chest: Effort normal and breath sounds normal. No stridor. Abdominal: Soft. He exhibits no distension. There is tenderness. There is no guarding. Well healing surgical scar with katya in place. No signs of infection. Minimally tender over surgical wounds. Musculoskeletal: He exhibits no edema or tenderness. No calf tenderness/swelling b/l Neurological: He is alert and oriented to person, place, and time. No new focal neuro deficits Skin: Skin is warm and dry. No rash noted. Psychiatric: He has a normal mood and affect. His behavior is normal. Nursing note and vitals reviewed. LABS Pertinent lab results reviewed in chart. Results for orders placed or performed during the hospital encounter of 05/06/17 Comprehensive metabolic panel Result Value Ref Range Sodium 136 136 - 145 mmol/L Potassium 3.5 3.5 - 5.0 mmol/L Chloride 102 98 - 107 mmol/L CO2 23 22 - 31 mmol/L Anion Gap, Calculation 11 5 - 18 mmol/L Glucose 171 (H) 70 - 125 mg/dL BUN 15 8 - 28 mg/dL Creatinine 0.89 0.70 - 1.30 mg/dL GFR MDRD Af Amer >60 >60 mL/min/1.73m2 GFR MDRD Non Af Amer >60 >60 mL/min/1.73m2 Bilirubin, Total 0.9 0.0 - 1.0 mg/dL Calcium 9.0 8.5 - 10.5 mg/dL Protein, Total 6.2 6.0 - 8.0 g/dL Albumin 2.7 (L) 3.5 - 5.0 g/dL Alkaline Phosphatase 77 45 - 120 U/L AST 28 0 - 40 U/L ALT 41 0 - 45 U/L Magnesium Result Value Ref Range Magnesium 1.2 (L) 1.8 - 2.6 mg/dL Type and screen Result Value Ref Range ABORh O POS Antibody Screen Negative Negative Troponin I Result Value Ref Range Troponin I <0.01 0.00 - 0.29 ng/mL HM1 (CBC with Diff) Result Value Ref Range WBC 14.9 (H) 4.0 - 11.0 thou/uL RBC 3.35 (L) 4.40 - 6.20 mill/uL Hemoglobin 9.3 (L) 14.0 - 18.0 g/dL Hematocrit 28.3 (L) 40.0 - 54.0 % MCV 85 80 - 100 fL MCH 27.8 27.0 - 34.0 pg MCHC 32.9 32.0 - 36.0 g/dL RDW 14.4 11.0 - 14.5 % Platelets 381 140 - 440 thou/uL MPV 11.2 8.5 - 12.5 fL Neutrophils % 76 (H) 50 - 70 % Lymphocytes % 12 (L) 20 - 40 % Monocytes % 12 (H) 2 - 10 % Eosinophils % 0 0 - 6 % Basophils % 1 0 - 2 % Neutrophils Absolute 11.1 (H) 2.0 - 7.7 thou/uL Lymphocytes Absolute 1.7 0.8 - 4.4 thou/uL Monocytes Absolute 1.8 (H) 0.0 - 0.9 thou/uL Eosinophils Absolute 0.0 0.0 - 0.4 thou/uL Basophils Absolute 0.1 0.0 - 0.2 thou/uL ECG 12 lead nursing unit performed Result Value Ref Range SYSTOLIC BLOOD PRESSURE mmHg DIASTOLIC BLOOD PRESSURE mmHg VENTRICULAR RATE 76 BPM ATRIAL RATE 76 BPM P-R INTERVAL 190 ms QRS DURATION 104 ms Q-T INTERVAL 384 ms QTC CALCULATION (BEZET) 432 ms P Henderson 18 degrees R AXIS -49 degrees T AXIS -16 degrees MUSE DIAGNOSIS Sinus rhythm Left anterior fascicular block Abnormal ECG When compared with ECG of 08-APR-2017 12:55, No significant change was found Confirmed by CATY REYEZ MD LOC:JN ([id number]) on 05/06/2017 3:22:26 PM EKG EKG reviewed and interpreted by me. NSR, left ant fascicular block, normal qtc, no ischemia, similar to previous EKG from 04/08/17 RADIOLOGY Images independently reviewed. Cta Chest Pe Run Result Date: 05/06/2017 CTA CHEST PE RUN, CT ABDOMEN PELVIS W ORAL W IV CONTRAST 05/06/2017 4:20 PM INDICATION: Shortness of breath dyspnea, recent surgery/immobilization. Recent gastric bypass with splenectomy. TECHNIQUE: Helical acquisition through the chest was performed during the arterial phase of contrast enhancement using IV contrast. In addition, acquisition through the abdomen and pelvis was acquired in the hepatic portal venous phase. 2D and 3D reconstructions were performed by the diagnostic radiologic technologist. Dose reduction techniques were used. IV CONTRAST: Iohexol (Omni) 100 mL COMPARISON: Chest CT dated 04/28/2015. FINDINGS: ANGIOGRAM CHEST: Negative for pulmonary emboli. Negative for thoracic aortic dissection and aneurysms. LUNGS AND PLEURA: There is a small left pleural effusion with associated atelectasis. No pneumothorax. No airspace disease identified. MEDIASTINUM: Normal size heart. Normal esophagus. There is herniation of fat through the esophageal hiatus of the diaphragm, with an opening measuring approximately 2.9 x 2.1 cm. A tubular fluid-filled structure within the herniated fat is likely a vessel and is unchanged. ABDOMEN: Splenectomy noted. The pancreas is not identified, which may be related to fatty replacement. Normal liver. Distended gallbladder. Normal adrenal glands. Normal kidneys and ureters. Status post Elizabeth-en-Y gastric bypass. There is a small volume of fluid in the excluded stomach. Normalcaliber of the small bowel. No intraperitoneal free air. There is a small amount of fluid along the anterior abdomen. Atherosclerotic calcification is present. PELVIS: Normal urinary bladder. Enlarged prostate gland. Mild colonic diverticulosis is noted. No acute diverticulitis. A few colonic air-fluid levels are noted on the right. No appendicitis. MUSCULOSKELETAL: There are degenerative osseous changes. There are expected post surgical changes along the anterior abdominal wall. CONCLUSION: 1. No PE. 2. Elizabeth-en-Y gastric bypass. Small amount of fluid in the excluded stomach, nonspecific. No free air. No bowel obstruction. 3. New small pleural effusion. 4. Interval splenectomy.5. Unchanged appearance of a fat- containing hernia at the esophageal hiatus of the diaphragm. Ct Abdomen Pelvis With Oral With Iv Contrast Result Date: 05/06/2017 CTA CHEST PE RUN, CT ABDOMEN PELVIS W ORAL W IV CONTRAST 05/06/2017 4:20 PM INDICATION: Shortness of breath dyspnea, recent surgery/immobilization. Recent gastric bypass with splenectomy. TECHNIQUE: Helical acquisition through the chest was performed during the arterial phase of contrast enhancement using IV contrast. In addition, acquisition through the abdomen and pelvis was acquired in the hepatic portal venous phase. 2D and 3D reconstructions were performed by the diagnostic radiologic technologist. Dose reduction techniques were used. IV CONTRAST: Iohexol (Omni) 100 mL COMPARISON: Chest CT dated 04/28/2015. FINDINGS: ANGIOGRAM CHEST: Negative for pulmonary emboli. Negative for thoracic aortic dissection and aneurysms. LUNGS AND PLEURA: There is a small left pleural effusion with associated atelectasis. No pneumothorax. No airspace disease identified. MEDIASTINUM: Normal size heart. Normal esophagus. There is herniation of fat through the esophageal hiatus of the diaphragm, with an opening measuring approximately 2.9 x 2.1 cm. A tubular fluid-filled structure within the herniated fat is likely a vessel and is unchanged. ABDOMEN: Splenectomy noted. The pancreas is not identified, which may be related to fatty replacement. Normal liver. Distended gallbladder. Normal adrenal glands. Normal kidneys and ureters. Status post Elizabeth-en-Y gastric bypass. There is a small volume of fluid in the excluded stomach. Normalcaliber of the small bowel. No intraperitoneal free air. There is a small amount of fluid along the anterior abdomen. Atherosclerotic calcification is present. PELVIS: Normal urinary bladder. Enlarged prostate gland. Mild colonic diverticulosis is noted. No acute diverticulitis. A few colonic air-fluid levels are noted on the right. No appendicitis. MUSCULOSKELETAL: There are degenerative osseous changes. There are expected post surgical changes along the anterior abdominal wall. CONCLUSION: 1. No PE. 2. Elizabeth-en-Y gastric bypass. Small amount of fluid in the excluded stomach, nonspecific. No free air. No bowel obstruction. 3. New small pleural effusion. 4. Interval splenectomy.5. Unchanged appearance of a fat- containing hernia at the esophageal hiatus of the diaphragm. ED MEDS New Prescriptions No medications on file ED COURSE & MEDICAL DECISION MAKING DDX: anemia, PE, ACS, post-op complication, dehydration, anxiety 1:55 PM: The patient was interviewed and examined. History in the chart was reviewed. Patient exam begun in room 17. Will evaluate further with labs, CT chest to rule out PE. Pt does not appear significantly anemia, but given surgery/history, will get type and screen initially. Pt agreeable to plan. 2:04 PM: Spoke with Dr. Grant, the patient's surgeon to update on patient. He agreed with workup, requested we add CT abd/pelvis with oral contrast to check abdomen given recent complicated surgery. Ifworkup unremarkable, pt would be ok for discharge/reassurance and he will follow up with him. 4:47 PM H/H improved from previous. Mild leukocytosis. Mag 1.2 (pt states he's had hypomagnesemia before), will replace with IV given associated weakness today. No other significant low mag symptoms atthis time. Trop negative. 5:18 PM CTs overall reassuring. No PE. He does have new small left pleural effusion, which is likelypostop related and could be contributing to some of his dyspnea. Small leukocytosis, but pt is afebrile and no evidence of consolidation on CT. Will not start on antibiotics. Discussed this with pt andhe agreed to f/u closely on it. Pt would like to go home. Discussed return precautions including forfever, worsening dyspnea and he agrees. Scheduled for follow up with Dr. Grant next Saturday. Pt is afebrile without hypoxia and remains well in ED, appropriate for discharge with outpatient f/u. Labs, xray, EKG, CT ordered and personally reviewed by me. Mag 1.2. Hgb 9.3, WBC 14.9 At the conclusion of the encounter I discussed the results of all of the tests and the disposition with the patient and any family present. All questions were answered. The patient and any family present acknowledged understanding and was involved in the decision making regarding the overall care plan. I discussed with patient the utility, limitations and findings of the exam/interventions/studies done during this visit as well as the list of differential diagnosis and symptoms to monitor/return to ER for. Additional verbal discharge instructions were provided. FINAL DIAGNOSIS: 1. Shortness of breath 2. Pleural effusion, left 3. Mild anemia 4. Hypomagnesemia IRj MD, personally performed the services described in this documentation, as scribedby Abigail Weber in my presence, and it is both accurate and complete. Rj Fnotana MD 05/06/17 [id number] ATOR ATTENDANT Alexsander Aranda MD - 05/06/2017 12:23 PM CST Report taken from Dr. Grant. Patient is postop recent Elizabeth-en-Y gastric bypass. 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 Patient was seen in clinic today and was dyspneic. Referred to the emergency department for further evaluation. Dr. Grant would like to be contacted with an update on the evaluation. His cell phone is [phone]. Alexsander Aranda MD 05/06/17 [id number] ATOR ATTENDANT documented in this encounter Plan of Treatment Not on filedocumented as of this encounter Procedures Procedure Name Priority Date/Time Associated Comments Diagnosis CT ABDOMEN PELVIS W Routine 05/06/2017 4:28 PM Re sults for this CONTRAST ELEVATOR ATTENDANT procedure are i n the results section. CT CHEST PULMONARY Routine 05/06/2017 4:20 PM Res ults for this EMBOLISM W CONTRAST ELEVATOR ATTENDANT procedur e are in the results section. GLUCOSE BY METER POCT Routine 05/06/2017 2:53 PM Results for this ELEVATOR ATTENDANT procedure are i n the results section. TYPE AND SCREEN, ADULT STAT 05/06/2017 2:15 PM Results for this ELEVATOR ATTENDANT procedure are i n the results section. EKG 12-LEAD, TRACING STAT 05/06/2017 2:05 PM R esults for this ONLY ELEVATOR ATTENDANT procedure are i n the results section. EXTRA APPLE TOP TUBE STAT 05/06/2017 1:42 PM ELEVATOR ATTENDANT CBC WITH PLATELETS AND STAT 05/06/2017 1:42 PM Results for this DIFFERENTIAL ELEVATOR ATTENDANT procedure are i n the results section. TROPONIN I Routine 05/06/2017 1:42 PM Results f or this ELEVATOR ATTENDANT procedure are i n the results section. MAGNESIUM Routine 05/06/2017 1:42 PM Results f or this ELEVATOR ATTENDANT procedure are i n the results section. COMPREHENSIVE Routine 05/06/2017 1:42 PM Results for this METABOLIC PANEL ELEVATOR ATTENDANT procedure ar e in the results section. documented in this encounter Results CT Abdomen Pelvis w Contrast (05/06/2017 4:28 PM ELEVATOR ATTENDANT) Anatomical Region Laterality Modality Abdomen/Pelvis, SUBRAD CT BODY, UMP CT ABDOMEN PELVIS, Computed Tomography RAD CT Specimen (Source) Anatomical Location Collection Method / Collectio n Time Received Time / Laterality Volume Impressions 05/06/2017 5:04 PM ELEVATOR ATTENDANT CONCLUSION: 1. ??No PE. 2. ??Elizabeth-en-Y gastric bypass. Small júnior unt of fluid in the excluded stomach, nonspecific. No free air. No bowel obstruction. 3. ??New small pleural effusion. 4. ??Interval splenectomy. 5. ??Unchanged appearance of a fat-conta ining hernia at the esophageal hiatus of the diaphragm. Narrative 05/06/2017 5:04 PM ELEVATOR ATTENDANT CTA CHEST PE RUN, CT ABDOMEN PELVIS W ORAL W IV CONTRAST 05/06/2017 4:20 PM INDICATION: Shortness of breath dyspnea, recent surgery/immobilization. Recent gastric bypass with splenectomy. TECHNIQUE: Helical acquisition through t he chest was performed during the arterial phase of contrast enhancement using IV contrast. In addition, acquisition through the abdomen and pelvis was acquired in the hepatic portal venous phase. 2D and 3D reconstructions were performed by the diagnostic radiologic technologist. Dose reduction techniques were used. IV CONTRAST: Iohexol (Omni) 100 mL COMPARISON: Chest CT dated 04/28/2015. FINDINGS: ANGIOGRAM CHEST: Negative for pulmonary emboli. Negative for thoracic aortic dissection and aneurysms. LUNGS AND PLEURA: There is a small left pleural effusion with associated atelectasis. No pneumothorax. No airspace disease identified. MEDIASTINUM: Normal size heart. Normal e sophagus. There is herniation of fat through the esophageal hiatus of the diaphragm, with an opening measuring approximately 2.9 x 2.1 cm. A tubular fluid-filled structure within the herniated fat is likely a vessel and is unchanged. ABDOMEN: Splenectomy noted. The pancreas is not identified, which may be related to fatty replacement. Normal liver. Distended gallbladder. Normal adrenal glands. Normal kidneys and ureters. Status post Elizabeth-en-Y gastric bypass. There is a sm all volume of fluid in the excluded stomach. Normal caliber of the small bowel. No intraperitoneal free air. There is a small amount of fluid along the anterior abdomen. Atherosclerotic calcification is present. PELVIS: Normal urinary bladder. Enlarged prostate gland. Mild colonic diverticulosis is noted. No acute diverticulitis. A few colonic air-fluid levels are noted on the right. No appendicitis. MUSCULOSKELETAL: There are degenerative osseous changes. There are expected post surgical changes along the anterior abdominal wall. Procedure Note Alcides Parada MD - 09/27/2020Formatti ng of this note might be different from the original. CTA CHEST PE RUN, CT ABDOMEN PELVIS W OR AL W IV CONTRAST 05/06/2017 4:20 PM INDICATION: Shortness of breath dyspnea, recent surgery/immobilization. Recent gastric bypass with splenectomy. TECHNIQUE: Helical acquisition through t he chest was performed during the arterial phase of contrast enhancement using IV contrast. In addition, acquisition through the abdomen and pelvis was acquired in the hepatic portal venous phase. 2D and 3D reconstructions were performed by the diagnostic radiologic technologist. Dose reduction techniques were used. IV CONTRAST: Iohexol (Omni) 100 mL COMPARISON: Chest CT dated 04/28/2015. FINDINGS: ANGIOGRAM CHEST: Negative for pulmonary emboli. Negative for thoracic aortic dissection and aneurysms. LUNGS AND PLEURA: There is a small left pleural effusion with associated atelectasis. No pneumothorax. No airspace disease identified. MEDIASTINUM: Normal size heart. Normal e sophagus. There is herniation of fat through the esophageal hiatus of the diaphragm, with an opening measuring approximately 2.9 x 2.1 cm. A tubular fluid-filled structure within the herniated fat is likely a vessel and is unchanged. ABDOMEN: Splenectomy noted. The pancreas is not identified, which may be related to fatty replacement. Normal liver. Distended gallbladder. Normal adrenal glands. Normal kidneys and ureters. Status post Elizabeth-en-Y gastric bypass. There is a small volume of fluid in the excluded stomach. Normal caliber of the small bowel. No intraperitoneal free air. There is a small amount of fluid along the anterior abdomen. Atherosclerotic calcification is present. PELVIS: Normal urinary bladder. Enlarged prostate gland. Mild colonic diverticulosis is noted. No acute diverticulitis. A few colonic air-fluid levels are noted on the right. No appendicitis. MUSCULOSKELETAL: There are degenerative osseous changes. There are expected post surgical changes along the anterior abdominal wall. IMPRESSION: CONCLUSION: 1. No PE. 2. Elizabeth-en-Y gastric bypass. Small amoun t of fluid in the excluded stomach, nonspecific. No free air. No bowel obstruction. 3. New small pleural effusion. 4. Interval splenectomy. 5. Unchanged appearance of a fat-contain ing hernia at the esophageal hiatus of the diaphragm. Rj Fontana MD IMG CT ORDERABLES CT Chest Pulmonary Embolism w Contrast (05/06/2017 4:20 PM ELEVATOR ATTENDANT) Anatomical Region Laterality Modality Chest, SUBRAD CT BODY, UMP CT CHEST Comp uted Tomography Specimen (Source) Anatomical Location Collection Method / Collectio n Time Received Time / Laterality Volume Impressions 05/06/2017 5:04 PM ELEVATOR ATTENDANT CONCLUSION: 1. ??No PE. 2. ??Elizabeth-en-Y gastric bypass. Small júnior unt of fluid in the excluded stomach, nonspecific. No free air. No bowel obstruction. 3. ??New small pleural effusion. 4. ??Interval splenectomy. 5. ??Unchanged appearance of a fat-conta ining hernia at the esophageal hiatus of the diaphragm. Narrative 05/06/2017 5:04 PM ELEVATOR ATTENDANT CTA CHEST PE RUN, CT ABDOMEN PELVIS W ORAL W IV CONTRAST 05/06/2017 4:20 PM INDICATION: Shortness of breath dyspnea, recent surgery/immobilization. Recent gastric bypass with splenectomy. TECHNIQUE: Helical acquisition through t he chest was performed during the arterial phase of contrast enhancement using IV contrast. In addition, acquisition through the abdomen and pelvis was acquired in the hepatic portal venous phase. 2D and 3D reconstructions were performed by the diagnostic radiologic technologist. Dose reduction techniques were used. IV CONTRAST: Iohexol (Omni) 100 mL COMPARISON: Chest CT dated 04/28/2015. FINDINGS: ANGIOGRAM CHEST: Negative for pulmonary emboli. Negative for thoracic aortic dissection and aneurysms. LUNGS AND PLEURA: There is a small left pleural effusion with associated atelectasis. No pneumothorax. No airspace disease identified. MEDIASTINUM: Normal size heart. Normal e sophagus. There is herniation of fat through the esophageal hiatus of the diaphragm, with an opening measuring approximately 2.9 x 2.1 cm. A tubular fluid-filled structure within the herniated fat is likely a vessel and is unchanged. ABDOMEN: Splenectomy noted. The pancreas is not identified, which may be related to fatty replacement. Normal liver. Distended gallbladder. Normal adrenal glands. Normal kidneys and ureters. Status post Elizabeth-en-Y gastric bypass. There is a sm all volume of fluid in the excluded stomach. Normal caliber of the small bowel. No intraperitoneal free air. There is a small amount of fluid along the anterior abdomen. Atherosclerotic calcification is present. PELVIS: Normal urinary bladder. Enlarged prostate gland. Mild colonic diverticulosis is noted. No acute diverticulitis. A few colonic air-fluid levels are noted on the right. No appendicitis. MUSCULOSKELETAL: There are degenerative osseous changes. There are expected post surgical changes along the anterior abdominal wall. Procedure Note Alcides Parada MD - 09/27/2020Formatti ng of this note might be different from the original. CTA CHEST PE RUN, CT ABDOMEN PELVIS W OR AL W IV CONTRAST 05/06/2017 4:20 PM INDICATION: Shortness of breath dyspnea, recent surgery/immobilization. Recent gastric bypass with splenectomy. TECHNIQUE: Helical acquisition through t he chest was performed during the arterial phase of contrast enhancement using IV contrast. In addition, acquisition through the abdomen and pelvis was acquired in the hepatic portal venous phase. 2D and 3D reconstructions were performed by the diagnostic radiologic technologist. Dose reduction techniques were used. IV CONTRAST: Iohexol (Omni) 100 mL COMPARISON: Chest CT dated 04/28/2015. FINDINGS: ANGIOGRAM CHEST: Negative for pulmonary emboli. Negative for thoracic aortic dissection and aneurysms. LUNGS AND PLEURA: There is a small left pleural effusion with associated atelectasis. No pneumothorax. No airspace disease identified. MEDIASTINUM: Normal size heart. Normal e sophagus. There is herniation of fat through the esophageal hiatus of the diaphragm, with an opening measuring approximately 2.9 x 2.1 cm. A tubular fluid-filled structure within the herniated fat is likely a vessel and is unchanged. ABDOMEN: Splenectomy noted. The pancreas is not identified, which may be related to fatty replacement. Normal liver. Distended gallbladder. Normal adrenal glands. Normal kidneys and ureters. Status post Elizabeth-en-Y gastric bypass. There is a small volume of fluid in the excluded stomach. Normal caliber of the small bowel. No intraperitoneal free air. There is a small amount of fluid along the anterior abdomen. Atherosclerotic calcification is present. PELVIS: Normal urinary bladder. Enlarged prostate gland. Mild colonic diverticulosis is noted. No acute diverticulitis. A few colonic air-fluid levels are noted on the right. No appendicitis. MUSCULOSKELETAL: There are degenerative osseous changes. There are expected post surgical changes along the anterior abdominal wall. IMPRESSION: CONCLUSION: 1. No PE. 2. Elizabeth-en-Y gastric bypass. Small amoun t of fluid in the excluded stomach, nonspecific. No free air. No bowel obstruction. 3. New small pleural effusion. 4. Interval splenectomy. 5. Unchanged appearance of a fat-contain ing hernia at the esophageal hiatus of the diaphragm. Rj Fontana MD IMG CT ORDERABLES Glucose by meter POCT (05/06/2017 2:53 PM ELEVATOR ATTENDANT) athologist Signature GLUCOSE BY 196 mg/dL 05/06/2017 [facility] METER POCT 2:53 PM [facility] POCT RESULTS Comment: Reference [...] Location / / Volume Laterality Blood specimen 05/06/2017 2:53 PM 018 9:09 (specimen) ELEVATOR ATTENDANT PM ELEVATOR ATTENDANT Historical Provider LAB - ENTER/EDIT POCT Performing Organization Address City/[facility]/ZIP Code Phon e Number [facility] POCT RESULTS [address] [place] [address] TYPE AND SCREEN, ADULT (05/06/2017 2:15 PM ELEVATOR ATTENDANT) P athologist Signature ABO/RH(D) O POS 05/06/2017 BLOOD BANK 3:09 PM ELEVATOR ATTENDANT Antibody Negative Negative 05/06/2017 BLOOD BANK Screen 3:09 PM ELEVATOR ATTENDANT Specimen Anatomical Collection Method Collection Time Receive d Time (Source) Location / / Volume Laterality Blood specimen VAD(CVC, PICC) / 05/06/2017 2:15 PM 2:24 (specimen) Unknown ELEVATOR ATTENDANT PM ELEVATOR ATTENDANT Rj Fontana MD LAB - BLOOD BANK TEST ORDER Performing Organization Address City/State/ZIP Code Phon e Number [facility] BLOOD BANK [address] [place] [address] [address]LO[address] [place] [address] EKG 12-lead, tracing only (05/06/2017 2:05 PM ELEVATOR ATTENDANT) [facility] Method Time Signature Systolic Blood mmHg 05/06/2017 HE RADIANT Pressure 3:22 PM CONVERSION ELEVATOR ATTENDANT Diastolic Blood mmHg 05/06/2017 HE RADIANT Pressure 3:22 PM CONVERSION ELEVATOR ATTENDANT Ventricular Rate 76 BPM 05/06/2017 HE RADIANT 3:22 PM CONVERSION ELEVATOR ATTENDANT Atrial Rate 76 BPM 05/06/2017 HE RADIANT 3:22 PM CONVERSION ELEVATOR ATTENDANT [place] Interval 190 ms 05/06/2017 HE RADIANT 3:22 PM CONVERSION ELEVATOR ATTENDANT QRS Duration 104 ms 05/06/2017 HE RADIANT 3:22 PM CONVERSION ELEVATOR ATTENDANT QT 384 ms 05/06/2017 HE RADIANT 3:22 PM CONVERSION ELEVATOR ATTENDANT QTc 432 ms 05/06/2017 HE RADIANT 3:22 PM CONVERSION ELEVATOR ATTENDANT P [place] 18 degrees 05/06/2017 HE RADIANT 3:22 PM CONVERSION ELEVATOR ATTENDANT R AXIS -49 degrees 05/06/2017 HE RADIANT 3:22 PM CONVERSION ELEVATOR ATTENDANT T [place] -16 degrees 05/06/2017 HE RADIANT 3:22 PM CONVERSION ELEVATOR ATTENDANT Interpretation Sinus rhythm 05/06/2017 HE RADIANT ECG Left anterior fascicular block 3:22 PM CONVERSION Abnormal ECG ELEVATOR ATTENDANT When compared with ECG of 08-APR-2017 12:55, No significant change was found Confirmed by AISSATOU ??, CATY LOC:JN ([id number]) on 05/06/2017 3:22:26 PM Specimen Anatomical Collection Method Collection Time Receive d Time (Source) Location / / Volume Laterality 05/06/2017 2:05 PM 8 3:22 ELEVATOR ATTENDANT PM ELEVATOR ATTENDANT Rj Fontana MD ECG ORDERABLES Performing Organization Address City/State/ZIP Code Phon e Number [facility] CARDIOLOGY CONVERSION HE RADIANT CONVERSION EXTRA APPLE TOP TUBE (05/06/2017 1:42 PM ELEVATOR ATTENDANT) Specimen Anatomical Collection Method Collection Time Receive d Time (Source) Location / / Volume Laterality Blood specimen VAD(CVC, PICC) / 05/06/2017 1:42 PM 1:47 (specimen) Unknown ELEVATOR ATTENDANT PM ELEVATOR ATTENDANT Rj Fontana MD LAB - BLOOD ORDERABLES (ABNORMAL) CBC WITH PLATELETS AND DIFFERENTIAL (05/06/2017 1:42 PM ELEVATOR ATTENDANT) [facility] Method Time Signature WBC 14.9 (H) 4.0 - 05/06/2017 HEALTH 11.0 2:27 PM ELEVATOR ATTENDANT [facility] RBC Count 3.35 (L) 4.40 - 05/06/2017 HEALTH 6.20 2:27 PM ELEVATOR ATTENDANT [facility] Hemoglobin 9.3 (L) 14.0 - 05/06/2017 HEALTH 18.0 g/dL 2:27 PM [facility] Hematocrit 28.3 (L) 40.0 - 05/06/2017 HEALTH 54.0 % 2:27 PM [facility] MCV 85 80 - 100 05/06/2017 HE[facility] fL 2:27 PM [facility] MCH 27.8 27.0 - 05/06/2017 [facility] 34.0 pg 2:27 PM [facility] MCHC 32.9 32.0 - 05/06/2017 HE[facility] 36.0 g/dL 2:27 PM [facility] RDW 14.4 11.0 - 05/06/2017 HE[facility] 14.5 % 2:27 PM [facility] Platelet Count 381 140 - 440 05/06/2017 [facility]/ 2:27 PM [facility] Mean Platelet 11.2 8.5 - 05/06/2017 [facility] Volume 12.5 fL 2:27 PM ELEVATOR ATTENDANT [facility] % Neutrophils 76 (H) 50 - 70 % 05/06/2017 [facility] 2:27 PM ELEVATOR ATTENDANT [facility] % Lymphocytes 12 (L) 20 - 40 % 05/06/2017 [facility] 2:27 PM ELEVATOR ATTENDANT [facility] % Monocytes 12 (H) 2 - 10 % 05/06/2017 [facility] 2:27 PM [facility] % Eosinophils 0 0 - 6 % 05/06/2017 [facility] 2:27 PM ELEVATOR ATTENDANT [facility] % Basophils 1 0 - 2 % 05/06/2017 [facility] 2:27 PM ELEVATOR ATTENDANT [facility] Absolute 11.1 (H) 2.0 - 7.7 05/06/2017 [facility] Neutrophils thou/uL 2:27 PM ELEVATOR ATTENDANT [facility] Absolute 1.7 0.8 - 4.4 05/06/2017 [facility] Lymphocytes thou/uL 2:27 PM ELEVATOR ATTENDANT [facility] Absolute 1.8 (H) 0.0 - 0.9 05/06/2017 [facility] Monocytes thou/uL 2:27 PM ELEVATOR ATTENDANT [facility] Eosinophils 0.0 0.0 - 0.4 05/06/2017 [facility] Absolute thou/uL 2:27 PM ELEVATOR ATTENDANT [facility] Absolute 0.1 0.0 - 0.2 05/06/2017 [facility] Basophils thou/uL 2:27 PM ELEVATOR ATTENDANT [facility] Specimen Anatomical Collection Method Collection Time Receive d Time (Source) Location / / Volume Laterality Blood specimen VAD(CVC, PICC) / 05/06/2017 1:42 PM 1:47 (specimen) Unknown ELEVATOR ATTENDANT PM ELEVATOR ATTENDANT Rj Fontana MD LAB - BLOOD ORDERABLES Performing Organization Address City/State/ZIP Code [place] [address] [address] [facility] Troponin I (05/06/2017 1:42 PM ELEVATOR ATTENDANT) P athologist Signature Troponin I <0.01 0.00 - 0.29 05/06/2017 [facility] ng/mL 2:41 PM ELEVATOR ATTENDANT [facility] Specimen Anatomical Collection Method Collection Time Receive d Time (Source) Location / / Volume Laterality Blood specimen VAD(CVC, PICC) / 05/06/2017 1:42 PM 1:47 (specimen) Unknown ELEVATOR ATTENDANT PM ELEVATOR ATTENDANT Rj Fontana MD LAB - BLOOD ORDERABLES Performing Organization Address City/State/ZIP Code Phon [place] [address] [address] [facility] (ABNORMAL) Magnesium (05/06/2017 1:42 PM ELEVATOR ATTENDANT) P athologist Signature Magnesium 1.2 (L) 1.8 - 2.6 05/06/2017 HE[facility] mg/dL 2:41 PM ELEVATOR ATTENDANT [facility] Specimen Anatomical Collection Method Collection Time Receive d Time (Source) Location / / Volume Laterality Blood specimen VAD(CVC, PICC) / 05/06/2017 1:42 PM 1:47 (specimen) Unknown ELEVATOR ATTENDANT PM ELEVATOR ATTENDANT Rj Fontana MD LAB - BLOOD ORDERABLES Performing Organization Address City/State/ZIP Code Phon [place] [address] [address] [facility] (ABNORMAL) Comprehensive metabolic panel (05/06/2017 1:42 PM ELEVATOR ATTENDANT) Patholo gist Method Time Signature Sodium 136 136 - 145 05/06/2017 HE[facility] mmol/L 2:41 PM [facility] Potassium 3.5 3.5 - 5.0 05/06/2017 HEALTH mmol/L 2:41 PM [facility] Chloride 102 98 - 107 05/06/2017 [facility] mmol/L 2:41 PM [facility] Carbon Dioxide 23 22 - 31 05/06/2017 [facility] (CO2) mmol/L 2:41 PM [facility] Anion Gap 11 5 - 18 05/06/2017 [facility] mmol/L 2:41 PM [facility] Glucose 171 (H) 70 - 125 05/06/2017 [facility] mg/dL 2:41 PM [facility] Urea Nitrogen 15 8 - 28 05/06/2017 [facility] mg/dL 2:41 PM [facility] Creatinine 0.89 0.70 - 05/06/2017 [facility] 1.30 mg/dL 2:41 PM [facility] GFR Estimate If >60 >60 05/06/2017 [facility] Black mL/min/1.7 2:[address] LABORATORY GFR Estimate >60 >60 05/06/2017 [facility] mL/min/1.7 2:[address] LABORATORY Bilirubin Total 0.9 0.0 - 1.0 05/06/2017 [facility] mg/dL 2:41 PM [facility] Calcium 9.0 8.5 - 10.5 05/06/2017 [facility] mg/dL 2:41 PM [facility] Protein Total 6.2 6.0 - 8.0 05/06/2017 [facility] g/dL 2:41 PM [facility] Albumin 2.7 (L) 3.5 - 5.0 05/06/2017 [facility] g/dL 2:41 PM [facility] Alkaline 77 45 - 120 05/06/2017 [facility] Phosphatase U/L 2:41 PM [facility] AST 28 0 - 40 U/L 05/06/2017 [facility] 2:41 PM [facility] ALT 41 0 - 45 U/L 05/06/2017 [facility] 2:41 PM [facility] Specimen Anatomical Collection Method Collection Time Receive d Time (Source) Location / / Volume Laterality Blood specimen VAD(CVC, PICC) / 05/06/2017 1:42 PM 1:47 (specimen) Unknown ELEVATOR ATTENDANT PM ELEVATOR ATTENDANT Narrative [facility] - 05/06/2017 2:41 PM ELEVATOR ATTENDANT Fasting Glucose reference range is 70-99 mg/dL per [place] [employer] (ADA) addie rojas. Rj Fontana MD LAB - BLOOD ORDERABLES Performing Organization Address City/State/ZIP Code Phon [place] [address] [id number] [place] [address]S LABORATORY [facility] [address] [place] [address], [facility] documented in this encounter Visit Diagnoses Diagnosis Shortness of breath Pleural effusion, left Unspecified pleural effusion Mild anemia Anemia, unspecified Hypomagnesemia Disorders of magnesium metabolism documented in this encounter Care Teams Corrugated Box Machine Operator Relationship Specialty Start Date End Date Benjamin Henao MD PCP - General Internal Medicine 07/24/[address] [place] [address] documented as of this encounter
--- OUTSIDE RECORDS SUMMARY | 2022-01-01 11:48 | XMS_ITS | Encounter Summary ---
:1945 Author Organization [place] Address [address] [place] [address] Care Team Providers Name Role Phone Benjamin Henao MD Primary Care Provider Reason for Visit Reason Comments Nutrition Counseling Encounter Details Date Type Department Care Team Description 04/17/2017 [facility] Bariatric surgery status; [facility] and Obesity, morbid, BMI 40.0-49.9 (H); [facility] [address] [address] Social History Tobacco Use Types [...] - Weight 143.8 kg (317 lb) 04/17/2017 1:00 PM TEA BLENDER Height 172.7 cm (5' 8) 04/17/2017 1:00 PM TEA BLENDER Body Mass Index 48.2 04/17/2017 1:00 PM TEA BLENDER documented in this encounter Progress Notes Historical Provider - 04/17/2017 1:00 PM CST Time in: 1:00 /Time out: 2:00 . Initial Weight: 319.6 lbs Weight: 317 lb (143.8 kg) Weight loss from initial: 2.6 % Weight loss: 0.81 % Weight goal: At or below initial weight Pt presents for nutrition education class for liquid diets. Educated pt on 2 week preop and 1 week post op liquid diets. Discussed appropriate liquids and demonstrated portions for each of the food groupings during each diet phase. Reviewed appropriate calories/protein/fluid goals during 2 week pre-opliquid diet. Educated on correct vitamins/minerals to take after surgery in correct dosage and frequency. Provided grocery list and sample menu plan for each diet stage, as well as unflavored protein powder samples. Instructed pt to adjust diabetes medications as follows: Stop Oral Medications/Insulin when beginning the 2 week pre-op liquid diet: Novolog Continue to use these for diabetes management: Metformin: last dose 04/28/2017 Lantus: reduce to 1/2 dose; last dose 04/29/2017 Pt will begin 2 week preop liquid diet 04/17/2017, will do clear liquids the day before surgery. Pt is scheduled for RNY on 05/01/2017, and will then follow one week post op liquid diet. Pt will f/u with RD 1 week post op for further diet advancement. documented in this encounter Plan of Treatment Not on filedocumented as of this encounter Visit Diagnoses Diagnosis Bariatric surgery status Obesity, morbid, BMI 40.0-49.9 (H) Dietary counseling Dietary surveillance and counseling documented in this encounter Care Teams Sumo Wrestler Relationship Specialty Start Date End Date Benjamin Henao MD PCP - General Internal Medicine 07/24/16 [address] [place] [address] documented as of this encounter
--- OUTSIDE RECORDS SUMMARY | 2022-01-01 11:48 | XMS_ITS | Encounter Summary ---
:1945 Author Organization [place] Address [address] [place] [address] Care Team Providers Name Role Phone Benjamin Henao MD Primary Care Provider Encounter Details Date Type Department Care Team Description 10/25/2016 [facility] Santos Krishna, Hypomagn esemia [facility] and MD Bariatrics Care [address] [place] [address] [place] [id number] [place] [address] [phone] [address] (Work) [phone] Social History Tobacco Use Types Packs/Day Years Used Date Former Smoker Quit: 08/27/18 90 Alcohol Use Standard Drinks/Week Comments Yes 0 (1 standard drink = 0.6 oz pure alcoho l) Sex Assigned at Date Recorded Not on file documented as of this encounter Plan of Treatment Not on filedocumented as of this encounter Visit Diagnoses Diagnosis Hypomagnesemia Disorders of magnesium metabolism documented in this encounter Care Teams Videogame Tester Relationship Specialty Start Date End Date Benjamin Henao MD PCP - General Internal Medicine 07/24/16 [address] [place] [address] documented as of this encounter
--- OUTSIDE RECORDS SUMMARY | 2022-01-01 11:48 | XMS_ITS | Encounter Summary ---
:1945 Author Organization [place] Address [address] [place] [address] Care Team Providers Name Role Phone Benjamin Henao MD Primary Care Provider Reason for Visit Reason Comments Weight Problem Post op f/u phone visit Encounter Details Date Type Department Care Team Description 05/07/2017 [facility] Gayatri Weber Weight Problem ([facility] and Yaquelin RN op f/u ph one visit) Bariatrics Care [address] [place] [address] [address] [place] [address] Social History Tobacco Use Types [...] on filedocumented in this encounter Care Teams Environmental Remediation Engineer Relationship Specialty Start Date End Date Benjamin Henao MD PCP - General Internal Medicine 07/24/16 [address] [place] [address] documented as of this encounter
--- OUTSIDE RECORDS SUMMARY | 2022-01-01 11:48 | XMS_ITS | Encounter Summary ---
:1945 Author Organization [place] Address [address] [place] [address] Care Team Providers Name Role Phone Benjamin Henao MD Primary Care Provider Encounter Details Date Type Department Care Team Description 11/05/2016 Office Visit - [facility] [place] [facility] Morbid obesity (H) [facility] and Kolby, PhD Bariatrics Care [facility] AND [address] [place] [address] [address] [facility] [address] [address] [place], [place] [phone] [id number] Social History Tobacco Use Types Packs/Day Years Used Date Former Smoker Quit: 08/27/18 90 Alcohol Use Standard Drinks/Week Comments Yes 0 (1 standard drink = 0.6 oz pure alcoho l) Sex Assigned at Date Recorded Not on file documented as of this encounter Progress Notes [place], PhD LP - 11/05/2016 12:30 PM CDT Health and Behavior Assessment with Intervention, Initial (60 minutes): Met with patient 1:1 to obtain demographics and background information, reasons for surgery, typical eating pattern/fluid intake as well as psychiatric history. Faith is a 71-year-old male who would like to follow through with bariatric surgery for health reasons. He has struggled with his weight for much of his adult life and now is concerned about various comorbidities. He denied any history of depression and anxiety. He does have a history of stress, emotional and possibly boredom eating. 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 He will follow-up and complete psychological testing. Diagnoses: F 54; E 66.01 documented in this encounter Plan of Treatment Not on filedocumented as of this encounter Visit Diagnoses Diagnosis Morbid obesity (H) Morbid obesity documented in this encounter Care Teams Geodetic Surveyor Technologist Relationship Specialty Start Date End Date Benjamin Henao MD PCP - General Internal Medicine 07/24/[address] [place] [address] documented as of this encounter
--- OUTSIDE RECORDS SUMMARY | 2022-01-01 11:48 | XMS_ITS | Encounter Summary ---
:1945 Author Organization [place] Address [address] [place] [address] Care Team Providers Name Role Phone Benjamin Henao MD Primary Care Provider Encounter Details Date Type Department Care Team Description 02/28/2017 Communication - [facility] Santos Krishna, [facility] and Bariatrics Care [address] [place] [address] [address] [place] [phone] Social History Tobacco Use Types Packs/Day Years Used Date Former Smoker Quit: 08/27/18 90 Alcohol Use Standard Drinks/Week Comments Yes 0 (1 standard drink = 0.6 oz pure alcoho l) Sex Assigned at Date Recorded Not on file documented as of this encounter Plan of Treatment Not on filedocumented as of this encounter Visit Diagnoses Not on filedocumented in this encounter Care Teams Resourcing Advisor Relationship Specialty Start Date End Date Benjamin Henao MD PCP - General Internal Medicine 07/24/16 [address] [place] [address] documented as of this encounter
--- OUTSIDE RECORDS SUMMARY | 2022-01-01 11:48 | XMS_ITS | Encounter Summary ---
:1945 Author Organization [facility] Address [address] [place] [address] Care Team Providers Name Role Phone Benjamin Henao MD Primary Care Provider Reason for Visit Reason Comments Nutrition Counseling Encounter Details Date Type Department Care Team Description 11/05/2016 Office Visit - [facility] Provider, Obesity, morbid, BMI 40.0- 49.9 (H); [facility] and Historical Nutrition al counseling Bariatrics Care [address] [place] [address] [address] [place] [phone] Social History Tobacco Use Types Packs/Day Years [...] - Inhaled Oxygen Concentration - - Weight 142.4 kg (314 lb) 11/05/2016 1:00 PM CDT Height 171.5 cm (5' 7.5) 11/05/2016 1:00 PM CDT Body Mass Index 48.45 11/05/2016 1:00 PM CDT documented in this encounter Progress Notes Historical Provider - 11/05/2016 1:30 PM CDT Initial Structured Weight Loss Supervised Diet Evaluation Assessment: Pt. is a 71 y.o. male is being seen today for initial RD nutritional evaluation. Pt. has been unsuccessful with non-surgical weight loss methods and is interested in bariatric surgery. Today we reviewed current eating habits and level of physical activity, and instructed on the changes that are required for successful bariatric outcomes. 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 Pt desires weight loss to be more active, have increasedquality of life, and to be able to play with grand children. Pt comes from pashto culture, in which there is a dietary emphasis on bread and cheese. Pt's spouse was present during visit. Workflow review: Pt still working with psych, pt has not attended support group, initial lab work complete. Weight goal: at or below initial Pt's Initial Weight: 319.6 lbs Weight: 314 lb (142.4 kg) Weight loss from initial: 5.6 % Weight loss: 1.75 % BMI: Body mass index is 48.45 kg/(m^2). Estimated RMR (Nicollet-St Jeor equation): 2143 calories Food allergies, intolerances, and oriental orthodox customs: None. Diabetes: Pt reports taking insulin daily. Vitamins Educated on post-op vitamin regimen: Multi Vit + iron 2x/day, calcium citrate 500-600 mg 2x/day, 8054-1107 mcg of Sublingual B-12 daily, and 5000 IU Vitamin D3 daily. Pt taking magnesium, b12, and vitamin D. Biggest struggle with weight loss: taking insulin; emotional eater; evening late-night snacking. Diet/Weight History Method or Diet: Pt used to work [employer], pt's consistent with weight loss. # loss(-) or gain(+): *not discussed Who does the grocery shopping for your household? Pt and pt's spouse Who prepares your meals at home? Pt's spouse Diet Recall/Time: Pt wakes up at 6:30 a.m. -treadmill in the morning Breakfast: 10:00am- 2 eggs scrambled with toast and cheese (20g) Am Snack: none Lunch: grilled cheese or cold cut sandwich, vegetables, fruits (puts on white bread) (20g) Pm snack: none Dinner: meat, vegetable, starch (20g) HS Snack: cheese with pashto bread, fruit (8g) Per Diet recall estimated protein: 60-70 grams/day Typical Snacks: Pt reports liking fruit and cheese. Fats used at home: olive oil Fried Foods: 0 times per week Meals per week away from home: 0-1x/week Sit down: none Fast Food: none Take Out: none Delivery: pizza Buffet: none Cafeteria: none Specialty Coffee: none (Pt drinks czech coffee) Ice Cream/FrozenYogurt/Bakery: none Comments: none Recommended limiting eating out to no more than 2x/week. Patient and I reviewed the importance of eating three consistent meals per day; as well as meal timing to be spaced 4-5 hours apart. Snack choices: 100-150 calories (1-2x/day if physically hungry), incorporating a fruit/vegetable w/ protein source. Portion Sizes problematic? Yes per patient/diet recall Encouraged slowing meal times down, 20-30 minutes, chewing to applesauce consistency. To aid in proper portion control and slow meal time down discussed consuming meals off smaller plates, use toddler/children utensils and set utensils down after each bite. Protein, vegetables/fruits, carbohydrates: Reviewed lean protein sources today. Recommended consuming 15-20gm protein at 3 meals daily Beverages (Type/Oz. per day) Water: 50 oz Coffee: 2 cups Tea: none Milk: none Regular soda: none Diet soda: none Juice: none Everett-Aid/lemonade/etc: none Alcohol: none Discussed the importance of adequate hydration after surgery and the goal of 64+ oz. of fluid daily. The patient understands the importance of avoiding all carbonated, caffeinated and sweetened drinks;instead choosing 64 oz. plain water. Fluid-meal separation: The patient and I reviewed the anatomy of the bypass and why fluids from a meal is so important. Exercise Walk on treadmill 3-5x/week for 4 miles. Pt.???s understands that 30-60 minutes of daily activity is an important part of bariatric surgery success. Encouraged pt. to incorporate upper body strength training exercise, even if its lifting soup cans while watching TV at night, doing pushups/sit-ups, and abdominal work. PES statement: 1. (NI-1.3)Excessive energy intake related to Food and nutrition related knowledge deficit concerning excessive energy/oral intake as evidenced by Intake of high caloric density foodsat meals and/or snacks; large portions; frequent grazing; Estimated intake that exceeds estimated daily energy intake; and BMI 48. Intervention Discussion: 1. Educated pt on the [place] to Bariatric Success handout. 2. Reviewed lean protein sources today. Recommended consuming 15-20gm protein at 3 meals daily 3. Discussed protein supplements 4. Educated on pre/post-op diet progression-gave review of surgery process. 5. Gave food journal homework, to be completed for f/u appointment. 6. Bariatric Plate: The patient and I discussed the importance of including lean/low fat protein at each meal and limiting carbohydrate intake to less than 25% of plate volume. Instructions/Goals: 1. Include 15-20gm lean protein at each meal. 2. Increase vegetable/fruit intake, by having a vegetable or fruit with each meal daily. Recommendedpt to increase vegetable/fruit intake to 4-5 servings daily. 3. Increase fluid intake to 64oz daily: choose plain or calorie/carbonation-free beverages. 4. Incorporate daily structured activity, 30-60 minutes most days of the week 5. Fill out food journal and bring to next month's visit. 6. Practice plate method: 1/2 plate lean/low fat protein source, vegetable/fruit, <25% of plate complex carbohydrates. 7. Read food labels more consistently: keeping total fat grams <10, total sugar grams <10, fiber >3gm per serving. 8. Separate fluids 30 minutes before/after meal times. 9. Practice eating off of smaller plates/bowls, chewing to applesauce consistency, taking 20-30 minutes to eat in a calm/relaxed environment without distractions of tv/email/cell phone. Handouts Provided: [place] to Bariatric Success Bariatric Plate Food journal Food Label Protein supplement list Monitor/Evaluation: Pt.???s target weight: no gain from initial visit, pt. verbalized understanding. Has realistic expectations for weight loss: Yes Verbalizes understanding of dietary changes post procedure: Yes Verbalizes understanding of supplement needs: No Verbalizes willingness to participate in physical activity: Yes Motivation for change: average Client???s predicted compliance on a scale of 1 (low) to 10 (high): 7 RD???s prediction for client success and compliance on a scale of 1 (low) to 10 (high): 7 Plan for next visit: Review Bariatric plate and food journal homework. Educate on dumping syndrome and reading food labels. (Final Supervised Diet visit with RD) pre/post-op diet progression, give review of surgery process. Review [place] to Bariatric Success Check Understanding Quiz Possible final visit Time In: 1:30pm Time Out: 2:15pm ABN signed: Yes documented in this encounter Plan of Treatment Not on filedocumented as of this encounter Visit Diagnoses Diagnosis Obesity, morbid, BMI 40.0-49.9 (H) Nutritional counseling documented in this encounter Care Teams Showroom Consultant Relationship Specialty Start Date End Date Benjamin Henao MD PCP - General Internal Medicine 07/24/[address] [place] [id number] documented as of this encounter
--- OUTSIDE RECORDS SUMMARY | 2022-01-01 11:48 | XMS_ITS | Encounter Summary ---
:1945 Author Organization [facility] Address [address] [place] [address] Care Team Providers Name Role Phone Benjamin Henao MD Primary Care Provider Reason for Visit Reason Comments Pre-Op Exam discussed diabetic needs ling or/after bariatric surgery Encounter Details Date Type Department Care Team Description 04/08/2017 Communication - [facility] [place], Pre-Op Exam [facility] and MD Santos (discussed diabetic Bariatrics Care 2945 needs prio... 17 [facility] 140 [facility] [address] [place] [address] [phone] Social History Tobacco Use Types Packs/Day Years Used Date Former Smoker Quit: 08/27/18 90 Alcohol Use Standard Drinks/Week Comments Yes 0 (1 standard drink = 0.6 oz pure alcoho l) Sex Assigned at Date Recorded Not on file documented as of this encounter Plan of Treatment Not on filedocumented as of this encounter Visit Diagnoses Not on filedocumented in this encounter Care Teams Metal Control Coordinator Relationship Specialty Start Date End Date Benjamin Henao MD PCP - General Internal Medicine 07/24/16 [address] [place], [place] [phone] documented as of this encounter
--- OUTSIDE RECORDS SUMMARY | 2022-01-01 11:48 | XMS_ITS | Encounter Summary ---
:1945 Author Organization [facility] Address [address] [place] [address] Care Team Providers Name Role Phone Benjamin Henao MD Primary Care Provider Reason for Visit Reason Comments Diabetes Encounter Details Date Type Department Care Team Description 05/09/2017 Communication - [facility] Santos Krishna Diabe tes [facility] and Bariatrics Care [address] [place] [phone] Social History Tobacco Use Types Packs/Day Years Used Date Former Smoker Quit: 08/27/18 90 Alcohol Use Standard Drinks/Week Comments Yes 0 (1 standard drink = 0.6 oz pure alcoho l) Sex Assigned at Date Recorded Not on file documented as of this encounter Plan of Treatment Not on filedocumented as of this encounter Visit Diagnoses Diagnosis Wound infection after surgery Other postoperative infection documented in this encounter Care Teams Options Trader Relationship Specialty Start Date End Date Benjamin Henao MD PCP - General Internal Medicine 07/24/16 [address] [place] [address] documented as of this encounter
--- OUTSIDE RECORDS SUMMARY | 2022-01-01 11:49 | XMS_ITS | Encounter Summary ---
:1945 Author Organization [facility] Address [address] [place] [address] Care Team Providers Name Role Phone Benjamin Henao MD Primary Care Provider Reason for Visit Reason Comments Diabetes follow up Hypertension follow up Encounter Details Date Type Department Care Team Description 07/24/2016 Office Visit - [facility] Benjamin Henao, Type 2 [facility] [place] mellitus (H) [facility] [address] [address] [place] [phone] Social History Tobacco Use Types Packs/Day Years [...] - Inhaled Oxygen Concentration - - Weight 142 kg (313 lb) 07/24/2016 11:21 AM CDT Height 174 cm (5' 8.5) 07/24/2016 11:21 AM CDT Body Mass Index 46.9 07/24/2016 11:21 AM CDT documented in this encounter Progress Notes Benjamin Henao MD - 07/24/2016 11:20 AM CDT ASSESSMENT: Type 2 diabetes, degree of control to be determined. Hypertension, controlled. Erectile dysfunction PLAN: Check a hemoglobin A1c, lipid profile, CMP, and urine microalbumin. I also gave him a prescription for Viagra and he is going to get this through a [facility] pharmacy. I will call him with results and further recommendations. Problem List Items Addressed This Visit None There are no discontinued medications. No Follow-up on file. There are no Patient Instructions on file for this visit. CHIEF COMPLAINT: Chief Complaint Patient presents with ??? Diabetes follow up ??? Hypertension follow up HISTORY OF PRESENT ILLNESS: Faith Adames is a 70 y.o. male presenting to the clinic today for follow up for his chronic medical conditions. Diabetes: His hemoglobin A1C was last monitored at 8.1 on May 08. He was instructed to increase his Lantus dosage to 65 units daily after his last office visit on May 08. He has since increasedhis dosage to 62 units daily, but has not been fully compliant with the instructed increase to 65 units daily secondary to the packaging dosage allotment his prescriptions provide. He is currently taking 20 units of NovoLog per meal with a sliding scale, as previously instructed by Dr. Nielsen in endocrinology. He reports that his blood glucose values have been well controlled in recent months, with a high of 140. He has begun exercising regularly since his last office visit on May 08. He is due to receive all of his diabetic lab work. Obesity: He is scheduled to consult with a bariatric medicine physician at [facility] on . He will be following up with a bariatric surgeon on August 05 to discuss the possibility of receiving agastric bypass procedure. Hyperlipidemia: His LDL cholesterol and total cholesterol were 70 and 135, respectively when last monitored on 03/11/15. He is due to receive an updated fasting lipid panel. He is currently fasting. Medication management: He requests a written prescription for 28 tablets of 100 mg sildenafil. Health maintenance: He is scheduled to receive a colonoscopy in August. His diabetic eye exam is up to date. REVIEW OF SYSTEMS: He recently presented to an regional operations director for a diabetic eye exam, who informed him that he did not have indications of diabetic retinopathy. All other systems are negative. PFSH: Allergies Allergen Reactions ??? Lisinopril ??? Sibutramine TOBACCO USE: History Smoking Status ??? Former Smoker Smokeless Tobacco ??? Former User VITALS: Vitals: 07/24/16 1121 BP: 134/68 Pulse: (!) 56 Weight: (!) 313 lb (142 kg) Height: 5' 8.5 (1.74 m) Wt Readings from Last 3 Encounters: 07/24/16 (!) 313 lb (142 kg) 05/08/16 (!) 316 lb (143.3 kg) 11/07/15 (!) 310 lb 12.8 oz (141 kg) PHYSICAL EXAM: Constitutional: Reveals an alert and oriented x3, pleasant male with no acute distress. ADDITIONAL HISTORY SUMMARIZED (FROM OLD RECORDS OR HISTORY FROM SOMEONE OTHER THAN THE PATIENT OR ANOTHER HEALTHCARE PROVIDER), COLONOSCOPY (2 TOTAL): Reviewed retinal surgery note from Dr. Coppola on 10/17/15 regarding retinoschisis. DECISION TO OBTAIN EXTRA INFORMATION (OLD RECORDS REQUESTED OR HISTORY FROM ANOTHER PERSON OR ACCESSING CARE EVERYWHERE) (1 TOTAL):none RADIOLOGY TESTS SUMMARIZED OR ORDERED (XRAY/CT/MRI/DXA/MAMMO) (1 TOTAL): none LABS REVIEWED OR ORDERED (1 TOTAL): Labs ordered and reviewed. MEDICINE TESTS SUMMARIZED OR ORDERED (EKG/ECHO/EGD) (1 TOTAL): none INDEPENDENT REVIEW OF EKG OR X-RAY (2 EACH): none The visit lasted a total of 13 minutes face to face with the patient. Over 50% of the time was spentcounseling and educating the patient about diabetes. I, Will Avalos, am scribing for and in the presence of, Dr. Benjamin Henao. I, Dr. Benjamin Henao, personally performed the services described in this documentation, as scribed by Will Avalos in my presence, and it is both accurate and complete. MEDICATIONS: Current Outpatient Prescriptions Medication Sig Dispense Refill ??? aspirin 81 mg chewable tablet Chew 81 mg daily. ??? atenolol (TENORMIN) 50 MG tablet Take 50 mg by mouth daily. As directed. ??? atorvastatin (LIPITOR) 40 MG tablet ??? blood sugar diagnostic (GLUCOSE BLOOD) Strp Lynne Contour Test In Vitro Strip.TEST 4 - 6 TIMES DAILY. ??? cetirizine (ZYRTEC) 10 mg cap Take 1 tablet by mouth daily. ??? folic acid (FOLVITE) 1 MG tablet Take 1 mg by mouth daily. As directed. ??? insulin aspart (NOVOLOG FLEXPEN) 100 unit/mL injection pen NovoLOG FlexPen 100 UNIT/ML Subcutaneous Solution Pen-injector. Inject three times daily with meal, currently up to 100 units daily. Adjust per physician orders. ??? insulin glargine (LANTUS SOLOSTAR) 100 unit/mL (3 mL) InPn Inject 60 Units under the skin bedtime. Or as directed. ??? losartan (COZAAR) 50 MG tablet ??? metFORMIN (GLUCOPHAGE) 1000 MG tablet Take 1,000 mg by mouth 2 (two) times a day with meals. ??? NEEDLES, INSULIN DISPOSABLE (PEN NEEDLE MISC) BD Pen Needle Mini U/F 31G X 5 MM Miscellaneous.Use 4x daily as directed. ??? omeprazole (PRILOSEC) 20 MG capsule Take 20 mg by mouth daily. ??? sildenafil (VIAGRA) 100 MG tablet Take 1 tablet (100 mg total) by mouth as needed for erectile dysfunction. 10 tablet 3 No current facility-administered medications for this visit. Total data points: 3 documented in this encounter Plan of Treatment Not on filedocumented as of this encounter Procedures Procedure Name Priority Date/Time Associated Diagnosis Comme nts LIPID PROFILE Routine 07/24/2016 11:45 AM Results for this CDT procedure are i n the results section . HEMOGLOBIN A1C Routine 07/24/2016 11:45 AM Result s for this CDT procedure are i n the results section . documented in this encounter Results (ABNORMAL) Hemoglobin A1c (07/24/2016 11:45 AM CDT) P athologist Signature Hemoglobin A1C 8.1 (H) 3.5 - 6.0 07/24/2016 % 11:57 AM CDT Specimen Anatomical Collection Method / Collection Time Recei nona Time (Source) Location / Volume Laterality Blood specimen Venipuncture / 07/24/2016 11:45 017 (specimen) Unknown AM CDT 11:45 AM CDT Benjamin Henao MD LAB - BLOOD ORDERABLES (ABNORMAL) Lipid Profile (07/24/2016 11:45 AM CDT) [facility] gist Method Time Signature Cholesterol 144 <=199 07/24/2016 mg/dL 7:39 PM CDT Triglycerides 144 <=149 07/24/2016 mg/dL 7:39 PM CDT Direct Measure HDL 37 (L) >=40 07/24/2016 mg/dL 7:39 PM CDT LDL Cholesterol 78 <=129 07/24/2016 Calculated mg/dL 7:39 PM CDT Patient Fasting > Unknown 07/24/2016 8hrs? 7:39 PM CDT Specimen Anatomical Collection Method / Collection Time Recei nona Time (Source) Location / Volume Laterality Blood specimen Venipuncture / 07/24/2016 11:45 017 7:03 (specimen) Unknown AM CDT PM CDT Benjamin Henao MD LAB - BLOOD ORDERABLES documented in this encounter Visit Diagnoses Diagnosis Type 2 diabetes mellitus (H) Type II or unspecified type diabetes mando litus without mention of complication, not stated as uncontrolled documented in this encounter Care Teams Police Cadet Relationship Specialty Start Date End Date Benjamin Henao MD PCP - General Internal Medicine 07/24/[address] [place] [phone] documented as of this encounter
--- OUTSIDE RECORDS SUMMARY | 2022-01-01 11:49 | XMS_ITS | Encounter Summary ---
:1945 Author Organization [facility] Address [address] [place] [address] Care Team Providers Name Role Phone Eladio Nielsen Primary Care Provider Unavailable Benjamin Henao MD Primary Care Provider Reason for Visit Reason Comments Nutrition Counseling Encounter Details Date Type Department Care Team Description 12/22/2014 Ambulatory - [facility] Ai Koenig Type I I or [facility] Jose R Sanchez RN unspecified type [place] diabetes mellitus [address] [place] without menti on of Drive complication, not [place], [place] stated [place] [phone] [facility] [phone] Social History Tobacco Use Types Packs/Day Years [...] - Inhaled Oxygen Concentration - - Weight 139.9 kg (308 lb 6.4 oz) 12/22/2014 9:31 AM CDT Height - - Body Mass Index 45.54 08/29/2011 1:37 PM CDT documented in this encounter Progress Notes Ai Koenig E - 12/22/2014 2:16 PM CDT Assessment: Time spent with the patient: 60 minutes for diabetes education and counseling. Previous Education: yes Visit Type:DSMT Education Assessment: Education topics reviewed: Goals setting and problem solving, Monitoring, Medications (oral agents), Medications (insulin) sites/rotations, hypoglycemia, insulin action and pattern control, Physical activity/exercise, Nutrition and Carb counting Plan / Patient Instructions: Your self-management goals: I'm motivated to start today. Goals ??? Other 1. Record food for two weeks and bring back for review Appointments to be scheduled (Appointment center [phone]): CDE (certified life skills educator) in two weeks Medication suggestions discussed with patient: None Subjective: Faith Adames is referred by Dr. Nielsen for Diabetes Education. Accompanied by: spouse Previous Diabetes Education? yes Reason for visit per patient nutrition therapy What concerns you most about your diabetes? How much insulin I am taking What is hardest for you in caring for your diabetes? Weight control On a scale of 1-5, where 5 is the highest, what is your level of stress right now? 2. Objective: Physical Activity: Patient recently started a walking program of walking 3 miles per day, in the morning. He has been doing this for 2-3 weeks. Encouraged to continue regular activity. Discussed days he can not walk 3 miles to aim for at least 1 mile. Diet/Eating Habits: Patient eat 2-3 meals per day and snacks in the evening. He does not eat breakfast every morning. Stated he is not hungry but will force himself to eat something. He will have 2 eggs with plain toast or Yemeni bread with a yogurt he mixes with olive oil. He drinks water with his meal. Lunch, patient will have a salad of cucumbers and tomatoes with Yemeni bread. Sometimes he will have meat sandwich or leftovers from the night before. Dinner, patient eats a traditional Yemeni meal most of the time. His will make some type of meat with vegetables. They do not have rice or pasta often Bread is eaten at almost every meal. Patient has 4-5 servings of fruit per day. He does not drink milk or eat cottage cheese. He likes most fruits and vegetables and he and his try to eat what is in season. After reviewing meals with patient, appears to be eating well. Will have patient log food and amountfor two weeks and follow-up. Patient's main concerns are weight and amount of inulin he is taking. Patient has considered Bariatric care. SMBG pattern/BG ranges: Checks 1-3 times per day. FBG 150's-160's. Other pre meal readings range 120's-140's. Patient does not always check BG before meal, will inject 20 units for every meal. Lab Results Component Value Date HGBA1C 7.1* 11/19/2014 Diabetes medications taken: Metformin 1000mg BID with meals; Lantus 60 units at 9-10pm nightly; Novolog 20-20-20-0. Does not use sliding scale as does not check BG before meals most times. Stated if goes out to eat he will inject after leaving restaurant.. Injection administration detail: none. Monitoring Meter (per above goals): Assessed and Discussed Monitoring: Assessed and Discussed BG goals: Assessed and Discussed Nutrition Management Nutrition Management: Assessed and Discussed Weight: Assessed and Discussed Portions/Balance: Assessed, Discussed and Literature provided Carb ID/Count: Assessed, Discussed and Literature provided Label Reading: Assessed, Discussed and Literature provided Heart Healthy Fats: Assessed and Discussed Menu Planning: Assessed and Discussed Dining Out: Assessed, Discussed and Literature provided Physical Activity: Assessed and Discussed Medications: Assessed and Discussed Diabetes Disease Process: Assessed and Discussed Acute Complications: Prevent, Detect, Treat: Hypoglycemia: Assessed and Discussed Hyperglycemia: Assessed and Discussed Sick Days: Not addressed Driving: Not addressed Chronic Complications Foot Care:Not addressed Skin Care: Not addressed Eye: Not addressed ABC: Assessed and Discussed Teeth:Not addressed Goal Setting and Problem Solving: Assessed and Discussed Barriers: Assessed and Discussed Psychosocial Adjustments: Assessed and Discussed Ai Koenig 12/22/2014 2:16 PM documented in this encounter Plan of Treatment Not on filedocumented as of this encounter Visit Diagnoses Diagnosis Type II or unspecified type diabetes mando litus without mention of complication, not stated as uncontrolled documented in this encounter Care Teams Freelance Copywriter Relationship Specialty Start Date End Date Eladio Nielsen PCP - General 08/14/11 07/23/16 Benjamin Henao MD PCP - General Internal Medicine 07/24/16 [address] [phone] documented as of this encounter
--- OUTSIDE RECORDS SUMMARY | 2022-01-01 11:49 | XMS_ITS | Encounter Summary ---
:1945 Author Organization [place] Address [address] [place] [address] Care Team Providers Name Role Phone Eladio Nielsen Primary Care Provider Unavailable Benjamin Henao MD Unavailable Benjamin Henao MD Primary Care Provider Encounter Details Date Type Department Care Team Description [facility]/24/[facility] Provider, Winter jacobsen Social History [...] on filedocumented in this encounter Care Teams Pretzel Cooker Relationship Specialty Start Date End Date Eladio Nielsen PCP - General 08/14/11 07/23/16 Benjamin Henao MD PCP - General Internal Medicine 07/24/[address] [place] [address] Benjamin Henao MD Assigned PCP 10/05/[address] [place] [address] documented as of this encounter
--- OUTSIDE RECORDS SUMMARY | 2022-01-01 11:49 | XMS_ITS | Encounter Summary ---
:1945 Author Organization [facility] Address [address] [place] [address] Care Team Providers Name Role Phone Eladio Nielsen Primary Care Provider Unavailable Benjamin Henao MD Unavailable Benjamin Henao MD Primary Care Provider Encounter Details Date Type Department Care Team Description 05/03/2015 Records - [facility] Provider, Winter jacobsen Social History Tobacco Use [...] Name Priority Date/Time Associated Diagnosis Comme nts ENDOSCOPY - HIM SCAN 05/03/2015 documented in this encounter Results ENDOSCOPY - HIM SCAN (05/03/2015) Specimen (Source) Anatomical Location Collection Method / Collectio n Time Received Time / Laterality Volume Narrative This result has an attachment that is no t available. Historical Provider PROCEDURES documented in this encounter Visit Diagnoses Not on filedocumented in this encounter Care Teams Pen And Pencil Repairer Relationship Specialty Start Date End Date Eladio Nielsen PCP - General 08/14/11 07/23/16 Benjamin Henao MD PCP - General Internal Medicine 07/24/16 [address] [place] [address] Benjamin Henao MD Assigned PCP 10/05/20 [address] [place] [address] documented as of this encounter
--- OUTSIDE RECORDS SUMMARY | 2022-01-01 11:49 | XMS_ITS | Encounter Summary ---
:1945 Author Organization [facility] Address [address] [place] [address] Care Team Providers Name Role Phone Benjamin Henao MD Unavailable Benjamin Henao MD Primary Care Provider Encounter Details Date Type Department Care Team Description [facility]/03/[facility], Winter jacobsen [...] on filedocumented in this encounter Care Teams Customer Retention Representative Relationship Specialty Start Date End Date Benjamin Henao MD PCP - General Internal Medicine 07/24/[address] [place] [address] Benjamin Henao MD Assigned PCP 10/05/[address] [place] [address] documented as of this encounter
--- OUTSIDE RECORDS SUMMARY | 2022-01-01 11:49 | XMS_ITS | Encounter Summary ---
:1945 Author Organization [place] Address [address] [place] [address] Care Team Providers Name Role Phone Eladio Nielsen Primary Care Provider Unavailable Benjamin Henao MD Primary Care Provider Encounter Details Date Type Department Care Team Description 11/11/2015 Communication - [facility] Benjamin Henao MD [facility] [address] [facility] [address] [place] [address] [place], [place] [phone] (Wo rk) [address] [phone] Social History Tobacco Use Types Packs/Day Years Used Date Former Smoker Quit: 08/27/18 90 Alcohol Use Standard Drinks/Week Comments Yes 0 (1 standard drink = 0.6 oz pure alcoho l) Sex Assigned at Date Recorded Not on file documented as of this encounter Plan of Treatment Not on filedocumented as of this encounter Visit Diagnoses Not on filedocumented in this encounter Care Teams Crown Pouncer Relationship Specialty Start Date End Date Eladio Nielsen PCP - General 08/14/11 07/23/16 Benjamin Henao MD PCP - General Internal Medicine 07/24/[address] [place] [address] documented as of this encounter
--- OUTSIDE RECORDS SUMMARY | 2022-01-01 11:49 | XMS_ITS | Encounter Summary ---
:1945 Author Organization [place] Address [address] [place] [address] Care Team Providers Name Role Phone Eladio Nielsen Primary Care Provider Unavailable Benjamin Henao MD Primary Care Provider Reason for Visit Reason Comments Follow Up f/u on dm Encounter Details Date Type Department Care Team Description 05/08/2016 Office Visit - [facility] Benjamin Henao, Type 2 diabetes mellitus (H); [facility] Jose R FORTUNE Microcytic anemia; [facility] 18[address] [facility] Obesity, unspecified 18[address] [place] [address] [phone] Social History Tobacco Use Types Packs/Day Years [...] - - Weight 143.3 kg (316 lb) 05/08/2016 2:52 PM STEWARD/STEWARDESS NIGHT Height - - Body Mass Index 47.35 03/11/2015 9:10 AM STEWARD/STEWARDESS NIGHT documented in this encounter Progress Notes Benjamin Henao MD - 05/08/2016 3:00 PM CST ASSESSMENT: #1. Type 2 diabetes, degree of control to be determined. #2. Obesity, now considering gastric bypass surgery. #3. Microcytic anemia PLAN: Check a hemoglobin A1c and CBC. He was referred to bariatric surgery as well. We will also get him set up for his colonoscopy as he is due. I will call him with results and further recommendations. Problem List Items Addressed This Visit None There are no discontinued medications. No Follow-up on file. There are no Patient Instructions on file for this visit. CHIEF COMPLAINT: Chief Complaint Patient presents with ??? Follow-up f/u on dm HISTORY OF PRESENT ILLNESS: Faith Adames is a 70 y.o. male presenting to the clinic today for follow up for his diabetes.His hemoglobin A1C was last monitored at 7.8 on 11/07/15. His blood glucose values have been significantly elevated over the last month, secondary to recent illnesses and antibiotic courses. He has increased his daily insulin dosages over the last month to compensate for his elevated glucose levels. Hehas continued to take 1,000 mg of metformin daily for his diabetes. Obesity: He is interested in receiving laparoscopic gastric bypass. He inquires if his health condition is adequate to receive a laparoscopic gastric bypass surgery. He inquires if he is likely to benefit from laparoscopic gastric bypass. He requests a referral to consult with a bariatric surgeon in the [facility] area. He is agreeable to consulting with Dr. Lebron Baca with [facility]. Erectile dysfunction: He inquires about generic alternatives to brand name Viagra for his erectile dysfunction. He requests a written prescription for 10 tablets of 100 mg sildenafil to allow him to fill his prescription through either a [facility] pharmacy or an alternative local pharmacy with a cheaper ritchie per [employer]. Health maintenance: He is due to receive an updated colonoscopy. REVIEW OF SYSTEMS: He denies any chest pain or tingling in his feet. He developed an episode of bronchitis approximately one month ago, which lasted 10-15 days. His bronchitis symptoms are fully resolved at this time. All other systems are negative. PFSH: He completed 2 courses of antibiotics in recent months secondary to recent dental work. Allergies Allergen Reactions ??? Lisinopril ??? Sibutramine TOBACCO USE: History Smoking Status ??? Former Smoker Smokeless Tobacco ??? Former User VITALS: Vitals: 05/08/16 1452 BP: 140/88 Patient Site: Right Arm Patient Position: Sitting Cuff Size: Adult Large Pulse: 76 Weight: (!) 316 lb (143.3 kg) Wt Readings from Last 3 Encounters: 05/08/16 (!) 316 lb (143.3 kg) 11/07/15 (!) 310 lb 12.8 oz (141 kg) 06/13/15 (!) (P) 310 lb (140.6 kg) PHYSICAL EXAM: Constitutional: Reveals an alert and oriented x3, pleasant male with no acute distress. ADDITIONAL HISTORY SUMMARIZED (FROM OLD RECORDS OR HISTORY FROM SOMEONE OTHER THAN THE PATIENT OR ANOTHER HEALTHCARE PROVIDER), COLONOSCOPY (2 TOTAL): none DECISION TO OBTAIN EXTRA INFORMATION (OLD RECORDS REQUESTED OR HISTORY FROM ANOTHER PERSON OR ACCESSING CARE EVERYWHERE) (1 TOTAL):none RADIOLOGY TESTS SUMMARIZED OR ORDERED (XRAY/CT/MRI/DXA/MAMMO) (1 TOTAL): none LABS REVIEWED OR ORDERED (1 TOTAL): Labs ordered and reviewed. MEDICINE TESTS SUMMARIZED OR ORDERED (EKG/ECHO/EGD) (1 TOTAL): none INDEPENDENT REVIEW OF EKG OR X-RAY (2 EACH): none The visit lasted a total of 14 minutes face to face with the patient. Over 50% of the time was spentcounseling and educating the patient about obesity. I, Will Avalos, am scribing for and [...] capsule Take 20 mg by mouth daily. No current facility-administered medications for this visit. Total data points: 1 ARD/STEWARDESS NIGHT documented in this encounter Plan of Treatment Not on filedocumented as of this encounter Procedures Procedure Name Priority Date/Time Associated Diagnosis Comme nts HEMOGLOBIN A1C Routine 05/08/2016 3:25 PM Results for this STEWARD/STEWARDESS NIGHT procedure are i n the results section . documented in this encounter Results (ABNORMAL) Hemoglobin A1c (05/08/2016 3:25 PM STEWARD/STEWARDESS NIGHT) Analysis Performed At Patho logist Time Signature Hemoglobin A1C 8.1 (H) 3.5 - 6.0 05/08/2016 [facility] % 3:53 PM STEWARD/STEWARDESS NIGHT [facility] Specimen Anatomical Collection Method / Collection Time Recei nona Time (Source) Location / Volume Laterality Blood specimen Venipuncture / 05/08/2016 3:25 05/08/19 17 3:25 (specimen) Unknown PM STEWARD/STEWARDESS NIGHT PM STEWARD/STEWARDESS NIGHT Benjamin Henao MD LAB - BLOOD ORDERABLES Performing Organization Address City/State/ZIP Code Phon e Number [facility] [place] [address] [place] [phone] CLINIC LABORATORY documented in this encounter Visit Diagnoses Diagnosis Type 2 diabetes mellitus (H) Type II or unspecified type diabetes mando litus without mention of complication, not stated as uncontrolled Microcytic anemia Iron deficiency anemia, unspecified Obesity, unspecified documented in this encounter Care Teams Treasury Accountant Relationship Specialty Start Date End Date Eladio Nielsen PCP - General 08/14/11 07/23/16 Benjamin Henao MD PCP - General Internal Medicine 07/24/16 [address] [place] [address] documented as of this encounter
--- OUTSIDE RECORDS SUMMARY | 2022-01-01 11:49 | XMS_ITS | Encounter Summary ---
:1945 Author Organization [facility] Address [address] [place] [address] Care Team Providers Name Role Phone Benjamin Henao MD Unavailable Benjamin Henao MD Primary Care Provider Encounter Details Date Type Department Care Team Description 08/14/2016 [facility], Winter jacobsen Social History [...] on filedocumented in this encounter Care Teams Skills Trainer Relationship Specialty Start Date End Date Benjamin Henao MD PCP - General Internal Medicine 07/24/[address] [place] [address] Benjamin Henao MD Assigned PCP 10/05/[address] [place] [address] documented as of this encounter
--- OUTSIDE RECORDS SUMMARY | 2022-01-01 11:49 | XMS_ITS | Encounter Summary ---
:1945 Author Organization [facility] Address [address] [place] [address] Care Team Providers Name Role Phone Eladio Nielsen Primary Care Provider Unavailable Benjamin Henao MD Primary Care Provider Encounter Details Date Type Department Care Team Description 01/12/2016 Communication - [facility] Benjamin Henao MD [facility] 1824 [facility] [address] [place] [address] [place], [place] [phone] (Wo rk) [address] [phone] Social History Tobacco Use Types Packs/Day Years Used Date Former Smoker Quit: 08/27/18 90 Alcohol Use Standard Drinks/Week Comments Yes 0 (1 standard drink = 0.6 oz pure alcoho l) Sex Assigned at Date Recorded Not on file documented as of this encounter Plan of Treatment Not on filedocumented as of this encounter Visit Diagnoses Not on filedocumented in this encounter Care Teams Press Tool Maker Relationship Specialty Start Date End Date Eladio Nielsen PCP - General 08/14/11 07/23/16 Benjamin Henao MD PCP - General Internal Medicine 07/24/[address] [place] [address] documented as of this encounter
--- OUTSIDE RECORDS SUMMARY | 2022-01-01 11:49 | XMS_ITS | Encounter Summary ---
:1945 Author Organization [facility] Address [address] [place] [address]. [place] [address] Care Team Providers Name Role Phone Benjamin Henao MD Primary Care Provider Encounter Details Date Type Department Care Team Description 10/02/2016 [facility] [address] [facility] [address] [place] [address] Social History Tobacco Use Types Packs/Day Years Used Date Former Smoker Quit: 08/27/18 90 Alcohol Use Standard Drinks/Week Comments Yes 0 (1 standard drink = 0.6 oz pure alcoho l) Sex Assigned at Date Recorded Not on file documented as of this encounter Progress Notes Hortensia Mcnamara - 10/02/2016 9:14 AM CDT I met with Faith and his while they were in clinic for patient's initial bariatric consult with Dr. Krishna. WE dicussed his insurance with Medicare and how they require no prior authorization for surgery , but we will require him to sign and ABN at the time of his consult with the surgery before scheduling surgery. Medicare does not make a determination for payment until the procedure is billed. I did show them a copy of what would be necessary to sign and they have chosen to proceed> Medicare has no SWL requirement, he will need to be cleared by both our psych and nutrition teams, and complete the needs list that was provided to him at his initial visit. At the request of Dr. Krishna, patient has been scheduled for an initial visit with Dr. Grant to determine if he will be an appropriate candidate for surgery before moving forward. documented in this encounter Plan of Treatment Not on filedocumented as of this encounter Visit Diagnoses Not on filedocumented in this encounter Care Teams Machinist Helper Relationship Specialty Start Date End Date Benjamin Henao MD PCP - General Internal Medicine 07/24/[address] [place] [address] documented as of this encounter
--- OUTSIDE RECORDS SUMMARY | 2022-01-01 11:49 | XMS_ITS | Encounter Summary ---
:1945 Author Organization [facility] Address [address] [place] [address] Care Team Providers Name Role Phone Eladio Nielsen Primary Care Provider Unavailable Benjamin Henao MD Unavailable Benjamin Henao MD Primary Care Provider Encounter Details Date Type Department Care Team Description 10/17/2015 Records - [facility] CONVERSION Provider, Winter jacobsen Social History Tobacco [...] on filedocumented in this encounter Care Teams Bus Or Truck Garage Mechanic Relationship Specialty Start Date End Date Eladio Nielsen PCP - General 08/14/11 07/23/16 Benjamin Henao MD PCP - General Internal Medicine 07/24/[address] [place] [address] Benjamin Henao MD Assigned PCP 10/05/[address] [place] [address] documented as of this encounter
--- OUTSIDE RECORDS SUMMARY | 2022-01-01 11:49 | XMS_ITS | Encounter Summary ---
:1945 Author Organization [place] Address [address] [place] [address] Care Team Providers Name Role Phone Eldaio Nielsen Primary Care Provider Unavailable Benjamin Henao MD Primary Care Provider Encounter Details Date Type Department Care Team Description 01/07/2014 Ambulatory - [facility] Eladio Nielsen Type II or [facility] Provider, Historical unspecified type [facility] diabetes mellitus 1824 [facility] without menti on of Drive complication, not [place], [place] [phone] uncontrolled [phone] Social History Tobacco Use Types Packs/Day Years [...] uncontrolled documented in this encounter Care Teams Utility Tractor Operator Relationship Specialty Start Date End Date Eladio Nielsen PCP - General 08/14/11 07/23/16 Benjamin Henao MD PCP - General Internal Medicine 07/24/16 [address] [place], [place] [phone] documented as of this encounter
--- OUTSIDE RECORDS SUMMARY | 2022-01-01 11:49 | XMS_ITS | Encounter Summary ---
:1945 Author Organization [facility] Address [address] [place] [address] Care Team Providers Name Role Phone Eladio Nielsen Primary Care Provider Unavailable Benjamin Henao MD Primary Care Provider Encounter Details Date Type Department Care Team Description 01/07/2014 Ambulatory - [facility] Eladio Nielsen Type II or [facility] Provider, Historical unspecified type [facility] on of [address] complication, not [place] [phone] uncontrolled [phone] Social History Tobacco Use Types Packs/Day Years [...] Associated Diagnosis Comme nts HEMOGLOBIN A1C Routine 01/07/2014 9:41 AM Results for this CDT procedure are i n the results section . documented in this encounter Results (ABNORMAL) Hemoglobin A1c (01/07/2014 9:41 AM CDT) Analysis Performed At Patho logist Time Signature Hemoglobin A1C 7.0 (H) 3.5 - 6.0 01/07/2014 [facility] % 10:03 AM CDT [facility] Specimen Anatomical Collection Method / Collection Time Recei nona Time (Source) Location / Volume Laterality Blood specimen Venipuncture / 01/07/2014 9:41 01/08/20 14 9:42 (specimen) Unknown AM CDT AM CDT Eladio Nielsen LAB - BLOOD ORDERABLES Performing Organization Address City/State/ZIP Code Phon e Number [facility] [address] [place] [phone] CLINIC LABORATORY documented in this encounter Visit Diagnoses Diagnosis Type II or unspecified type diabetes mando litus without mention of complication, not stated as uncontrolled documented in this encounter Care Teams Transportation Supervisor Relationship Specialty Start Date End Date Eladio Nielsen PCP - General 08/14/11 07/23/16 Benjamin Henao MD PCP - General Internal Medicine 07/24/[address] [place] [address] documented as of this encounter
--- OUTSIDE RECORDS SUMMARY | 2022-01-01 11:49 | XMS_ITS | Encounter Summary ---
:1945 Author Organization [facility] Address [address] [place] [address] Care Team Providers Name Role Phone Eladio Nielsen Primary Care Provider Unavailable Benjamin Henao MD Primary Care Provider Reason for Visit Reason Comments Diabetes Encounter Details Date Type Department Care Team Description 05/20/2014 Office Visit - [facility] Eladio Nielsen Type II or unspecified type diabetes mellitus without mention of complication, not stated as uncontrolled; [facility] Provider, Historical Other and unspecified hyperlipidemia [address] [id number] [place] [address] Social History Tobacco Use [...] - Inhaled Oxygen Concentration - - Weight 139.3 kg (307 lb) 05/20/2014 7:45 AM WAREHOUSE PACKER Height - - Body Mass Index 45.34 08/29/2011 1:37 PM CDT documented in this encounter Progress Notes Eladio Nielsen - 05/20/2014 8:02 AM CST Endocrine note Faith Adames is a 68 y.o. male who is here today for follow-up of his type 2 diabetes. Past Medical History: 1. Patient Active Problem List Diagnosis ??? Benign Adenomatosis Of The Large Intestine ??? Insomnia ??? Obesity ??? Type 2 Diabetes Mellitus ??? 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 Colonic Diverticulosis ??? Coronary Artery Disease ??? Hyperlipidemia ??? Hypertension ??? Esophageal Reflux ??? Obstructive Sleep Apnea ??? Benign Prostatic Hypertrophy 2. Lisinopril and Sibutramine 3. Habits: History Smoking status ??? Never Smoker Smokeless tobacco ??? Not on file History Alcohol Use No 4. Current Outpatient Prescriptions Medication Sig Dispense Refill [...] bedtime. Or as directed. ??? losartan (COZAAR) 25 MG tablet Take 25 mg by mouth daily. As directed. ??? metFORMIN (GLUCOPHAGE) 1000 MG tablet Take 1,000 mg by mouth 2 (two) times a day with meals. ??? NEEDLES, INSULIN DISPOSABLE (PEN NEEDLE MISC) BD Pen Needle Mini U/F 31G X 5 MM Miscellaneous.Use 4x daily as directed. ??? omeprazole (PRILOSEC) 20 MG capsule Take 20 mg by mouth daily. ??? simvastatin (ZOCOR) 40 MG tablet Take 40 mg by mouth daily with supper. ??? lansoprazole (PREVACID) 30 MG capsule Take 30 mg by mouth bedtime as needed. ??? tadalafil (CIALIS) 5 MG tablet Take 5 mg by mouth daily. No current facility-administered medications for this visit. Family and Social Hx: No family history on file. History Social History ??? Marital Status: Spouse Name: N/A Number of Children: N/A ??? Years of Education: N/A Occupational History ??? Not on file. Social History Main Topics ??? Smoking status: Never Smoker ??? Smokeless tobacco: Not on file ??? Alcohol Use: No ??? Drug Use: Not on file ??? Sexual Activity: Not on file Other Topics Concern ??? Not on file Social History Narrative ??? No narrative on file HPI: Mckennareyna is taking metformin 1011 g twice a day, Lantus 60 units at at bedtime and NovoLog 20 units per meal plus a correction of 2 units for every 40 mg percent blood sugars greater than 140. He'schecking his blood sugars 3 times a day and did provide a blood sugar log book. His blood sugars aregenerally in the mid 100s. He had one hypoglycemic episode with a blood sugar of 62 on April 23, 2014. The reason the blood sugar was low is not clear. The patient went to the emergency room where he was found to have a pneumonia. Apart from this he feels well. He has recently seen his delivery table feeder who switched his simvastatin to Lipitor. He denies foot pain or ulcerations. Physical Exam: Blood pressure 128/72, pulse 86, weight 307 lb (139.254 kg). On examination he appears well albeit obese. He is alert and his mood is affable. Labs: Pending hemoglobin A1c, lipid panel and competence of metabolic panel. Imaging: None Assessment: Type 2 diabetes which appears well controlled. We discussed the concept of adjusting theNovoLog to anticipated caloric intake. Plan: He will call for report of his laboratory data and follow-up plans will be made. He falls wellhe'll return in 6 months time. Eladio Nielsen HE Endocrinology 05/20/2014 8:02 AM documented in this encounter Plan of Treatment Not on filedocumented as of this encounter Procedures Procedure Name Priority Date/Time Associated Diagnosis Comme nts LIPID PROFILE Routine 05/20/2014 8:01 AM Results for this WAREHOUSE PACKER procedure are i n the results section . HEMOGLOBIN A1C Routine 05/20/2014 8:01 AM Results for this WAREHOUSE PACKER procedure are i n the results section . documented in this encounter Results (ABNORMAL) Hemoglobin A1c (05/20/2014 8:01 AM WAREHOUSE PACKER) Analysis Performed At Path logist Time Signature Hemoglobin A1C 7.4 (H) 3.5 - 6.0 05/20/2014 HEALTH % 8:25 AM WAREHOUSE PACKER [facility] Specimen Anatomical Collection Method / Collection Time Recei nona Time (Source) Location / Volume Laterality Blood specimen Venipuncture / 05/20/2014 8:01 05/20/19 15 8:01 (specimen) Unknown AM WAREHOUSE PACKER AM WAREHOUSE PACKER Eladio Nielsen LAB - BLOOD ORDERABLES Performing Organization Address [facility] Phon e Number [facility] [place] [address] [place] [address] [phone] CLINIC LABORATORY (ABNORMAL) Lipid Profile (05/20/2014 8:01 AM WAREHOUSE PACKER) [facility] gist Method Time Signature Triglycerides 226 (H) <=149 05/20/2014 HEALTH mg/dL 4:48 PM [facility] Cholesterol 140 <=199 05/20/2014 HEALTH mg/dL 4:48 PM [facility] LDL Cholesterol 54 0 - 129 05/20/2014 HEALTH Calculated mg/dL 4:48 PM [facility] Direct Measure 41 >=40 05/20/2014 [facility] HDL mg/dL 4:48 PM [facility] Specimen Anatomical Collection Method / Collection Time Recei nona Time (Source) Location / Volume Laterality Blood specimen Venipuncture / 05/20/2014 8:01 05/20/19 15 3:53 (specimen) Unknown AM WAREHOUSE PACKER PM WAREHOUSE PACKER Eladio Nielsen LAB - BLOOD ORDERABLES Performing Organization Address [facility] Phon e [place] [address] [facility] [address] [facility] documented in this encounter Visit Diagnoses Diagnosis Type II or unspecified type diabetes mando litus without mention of complication, not stated as uncontrolled Other and unspecified hyperlipidemia documented in this encounter Care Teams Straightening Roll Operator Relationship Specialty Start Date End Date Eladio Nielsen PCP - General 08/14/11 07/23/16 Benjamin Henao MD PCP - General Internal Medicine 07/24/16 [address] [place] [address] documented as of this encounter
--- OUTSIDE RECORDS SUMMARY | 2022-01-01 11:49 | XMS_ITS | Encounter Summary ---
:1945 Author Organization [facility] Address [address] [place] [address] Care Team Providers Name Role Phone Eladio Nielsen Primary Care Provider Unavailable Benjamin Henao MD Primary Care Provider Reason for Visit Reason Comments Follow Up blood pressure, possible blo od work Encounter Details Date Type Department Care Team Description 11/07/2015 [facility], Type II or unspecified type diabetes mellitus without mention of complication, not stated as uncontrolled; [facility] Jose R [place] Obstructive sleep apnea (adult) (pediatr ic); [place] [address] Unspecified essential hypert ension; [address] Coronary atherosclerosis of unspecified type of vessel, [place] [phone] Social History Tobacco Use Types Packs/Day Years [...] - Inhaled Oxygen Concentration - - Weight 141 kg (310 lb 12.8 oz) 11/07/2015 10:07 AM CDT Height - - Body Mass Index 46.57 03/11/2015 9:10 AM 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 Hemoglobin A1c is 7.8. #2. Hypertension, controlled. #2. Fatigue along with a history of anemia. PLAN: A1c as noted above. Check a CBC as well. Follow-up in 6 months, earlier if his CBC indicates that heis anemic. Problem List Items Addressed This Visit Coronary Artery Disease Hypertension Obstructive Sleep Apnea Relevant Orders HM2(CBC w/o Differential) Type 2 Diabetes Mellitus - Primary Relevant Orders Glycosylated Hemoglobin A1c Medications Discontinued During This Encounter Medication Reason ??? losartan (COZAAR) 25 MG tablet Therapy completed No Follow-up on file. There are no Patient Instructions on file for this visit. CHIEF COMPLAINT: Chief Complaint Patient presents with ??? Follow-up blood pressure, possible blood work HISTORY OF PRESENT ILLNESS: Faith Adames is a 70 y.o. male presenting to the clinic today with a recent cough and to follow up on his hypertension and diabetes. Cough and SOB: He has had a significant, productive cough and occasional shortness of breath for 2-3weeks. His cough has decreased for the last 2-3 days. He normally walks 3-4 miles a day but has not exercised for the last 2-3 weeks due to his cough. He feels that he is able to return to exercising now that his cough has subsided. He checks his oxygen levels regularly and notes that they are normally 97-98 but that his oxygen is notably decreased at 90-91 when he has shortness of breath while sitting and watching television. He is afraid that his symptoms are indicative of congestive heart failure. He denies any dyspnea while exercising. He received a stress test on 12/28/14 indicating normal with mild to moderate impairment of exercise tolerance and no evidence for exercise induced cardiac ischemia. Obstructive sleep apnea: He has obstructive sleep apnea and uses his CPAP every night. Hypertension: His hypertension is currently well controlled with a blood pressure of 130/80. Diabetes: His blood glucose values are typically 170's in the mornings and 130- 160 during the day. He is on 1000 mg of metformin and 40 units of Lantus daily alongside 20 units of NovoLog with meals. He eats 2 meals a day. REVIEW OF SYSTEMS: He denies any blood in his stool. He has received regular colonoscopies and is due for a colonoscopynext year. All other systems are negative. 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 Allergies Allergen Reactions ??? Lisinopril ??? Sibutramine TOBACCO USE: History Smoking Status ??? Former Smoker Smokeless Tobacco ??? Former User VITALS: Vitals: 11/07/15 1007 BP: 130/80 Patient Site: Left Arm Patient Position: Sitting Cuff Size: Adult Large Pulse: 62 Weight: (!) 310 lb 12.8 oz (141 kg) Wt Readings from Last 3 Encounters: 11/07/15 (!) 310 lb 12.8 oz (141 kg) 06/13/15 (!) (P) 310 lb (140.6 kg) 03/11/15 (!) 306 lb 11.2 oz (139.1 kg) PHYSICAL EXAM: Constitutional: Reveals an alert, pleasant male with no acute distress. Vitals: Per nursing notes. Body mass index is 46.57 kg/(m^2). CV: S1, S2, regular rate and rhythm, no murmurs, gallops, or rubs LUNGS: Clear to auscultation bilaterally ADDITIONAL HISTORY SUMMARIZED (FROM OLD RECORDS OR HISTORY FROM SOMEONE OTHER THAN THE PATIENT OR ANOTHER HEALTHCARE PROVIDER), COLONOSCOPY (2 TOTAL): Reviewed note from Dr. Mitchell on April 28 indicating follow up for obstructive sleep apnea and screening chest CT for lung cancer. DECISION TO OBTAIN EXTRA INFORMATION (OLD RECORDS REQUESTED OR HISTORY FROM ANOTHER PERSON OR ACCESSING CARE EVERYWHERE) (1 TOTAL):none RADIOLOGY TESTS SUMMARIZED OR ORDERED (XRAY/CT/MRI/DXA/MAMMO) (1 TOTAL): Reviewed chest CT from April 28 indicating infiltrate clear up from his previous chest CT. LABS REVIEWED OR ORDERED (1 TOTAL): Reviewed and ordered labs. MEDICINE TESTS SUMMARIZED OR ORDERED (EKG/ECHO/EGD) (1 TOTAL): Reviewed stress test report from 12/28/14 indicating normal with mild to moderate impairment of exercise tolerance and no evidence for exercise induced cardiac ischemia. INDEPENDENT REVIEW OF EKG OR X-RAY (2 EACH): none The visit lasted a total of 18 minutes face to face with the patient. Over 50% of the time was spentcounseling and educating the patient about his recent cough. I, Will Avalos, am scribing for and [...] medications for this visit. Total data points: 5 documented in this encounter Plan of Treatment Not on filedocumented as of this encounter Procedures Procedure Name Priority Date/Time Associated Diagnosis Comme nts HEMOGLOBIN A1C Routine 11/07/2015 10:41 AM Result s for this CDT procedure are i n the results section . documented in this encounter Results (ABNORMAL) Hemoglobin A1c (11/07/2015 10:41 AM CDT) Analysis Performed At Patho logist Time Signature Hemoglobin A1C 7.8 (H) 3.5 - 6.0 11/07/2015 HEALTH % 10:55 AM CDT [facility] Specimen Anatomical Collection Method / Collection Time Recei nona Time (Source) Location / Volume Laterality Blood specimen Venipuncture / 11/07/2015 10:41 016 (specimen) Unknown AM CDT 10:41 AM CDT Benjamin Henao MD LAB - BLOOD ORDERABLES Performing Organization Address City/State/[facility] Code Phon e Number [facility] [place] [address] [place] [phone] CLINIC LABORATORY documented in this encounter Visit Diagnoses Diagnosis Type II or unspecified type diabetes mando litus without mention of complication, not stated as uncontrolled Obstructive sleep apnea (adult) (pediatr ic) Unspecified essential hypertension Coronary atherosclerosis of unspecified type of vessel, [place] and [place] tribes or graft documented in this encounter Care Teams Tire Fabric Impregnating Range Tender Relationship Specialty Start Date End Date Eladio Nielsen PCP - General 08/14/11 07/23/16 Benjamin Henao MD PCP - General Internal Medicine 07/24/16 [address] [place] [address] documented as of this encounter
--- OUTSIDE RECORDS SUMMARY | 2022-01-01 11:49 | XMS_ITS | Encounter Summary ---
:1945 Author Organization [facility] Address [address] [place] [address] Care Team Providers Name Role Phone Benjamin Henao MD Primary Care Provider Encounter Details Date Type Department Care Team Description 10/24/2016 [facility] Santos Krishna, Low papito min B12 level; [facility] and Hypomagnesemia; [facility] [address] [place] [address] Low vitamin D level [place] [address] [address] [facility] [id number] [place] [address] [phone] (Work) [phone] Social History Tobacco Use Types Packs/Day Years Used Date Former Smoker Quit: 08/27/18 90 Alcohol Use Standard Drinks/Week Comments Yes 0 (1 standard drink = 0.6 oz pure alcoho l) Sex Assigned at Date Recorded Not on file documented as of this encounter Plan of Treatment Not on filedocumented as of this encounter Visit Diagnoses Diagnosis Low vitamin B12 level Other B-complex deficiencies Hypomagnesemia Disorders of magnesium metabolism Low vitamin D level documented in this encounter Care Teams Director Payer Relationship Specialty Start Date End Date Benjamin Henao MD PCP - General Internal Medicine 07/24/16 [address] [place] [address] documented as of this encounter
--- OUTSIDE RECORDS SUMMARY | 2022-01-01 11:49 | XMS_ITS | Encounter Summary ---
:1945 Author Organization [facility] Address [address] [place] [address] Care Team Providers Name Role Phone Eladio Nielsen Primary Care Provider Unavailable Benjamin Henao MD Primary Care Provider Encounter Details Date Type Department Care Team Description 01/10/2016 [facility] Anemia [address] [place] [address] [facility] [phone] Social History Tobacco Use Types Packs/Day Years Used Date Former Smoker Quit: 08/27/18 90 Alcohol Use Standard Drinks/Week Comments Yes 0 (1 standard drink = 0.6 oz pure alcoho l) Sex Assigned at Date Recorded Not on file documented as of this encounter Plan of Treatment Not on filedocumented as of this encounter Visit Diagnoses Diagnosis Anemia Anemia, unspecified documented in this encounter Care Teams Armature Repairer Relationship Specialty Start Date End Date Eladio Nielsen PCP - General 08/14/11 07/23/16 Benjamin Henao MD PCP - General Internal Medicine 07/24/[address] [place] [address] documented as of this encounter
--- OUTSIDE RECORDS SUMMARY | 2022-01-01 11:49 | XMS_ITS | Encounter Summary ---
:1945 Author Organization [place] Address [address] [place] [address] Care Team Providers Name Role Phone Eladio Nielsen Primary Care Provider Unavailable Benjamin Henao MD Primary Care Provider Encounter Details Date Type Department Care Team Description 05/20/2014 [facility] Eladio Nielsen [facility] Provider, [facility] [address] [place] [address] Social History Tobacco Use Types [...] on filedocumented in this encounter Care Teams Machine Clothing Worker Relationship Specialty Start Date End Date Eladio Nielsen PCP - General 08/14/11 07/23/16 Benjamin Henao MD PCP - General Internal Medicine 07/24/168 [place], [place] [id number] documented as of this encounter
--- OUTSIDE RECORDS SUMMARY | 2022-01-01 11:49 | XMS_ITS | Encounter Summary ---
:1945 Author Organization [facility] Address [address] [place] [address] Care Team Providers Name Role Phone Benjamin Henao MD Primary Care Provider Encounter Details Date Type Department Care Team Description 07/24/2016 Communication - [facility] E-VIS[facility] Provider, Obed gross Social History Tobacco Use Types Packs/Day Years [...] filedocumented in this encounter Care Teams Metal Framer Relationship Specialty Start Date End Date Benjamin Henao MD PCP - General Internal Medicine 07/24/16 [address] [place] [address] documented as of this encounter
--- OUTSIDE RECORDS SUMMARY | 2022-01-01 11:49 | XMS_ITS | Encounter Summary ---
:1945 Author Organization [facility] Address [address] [place] [address] Care Team Providers Name Role Phone Benjamin Henao MD Unavailable Benjamin Henao MD Primary Care Provider Encounter Details Date Type Department Care Team Description 08/01[facility]2016 [facility], Winter jacobsen Social History [...] on filedocumented in this encounter Care Teams Jacquard Plate Maker Relationship Specialty Start Date End Date Benjamin Henao MD PCP - General Internal Medicine 07/24/[address] [place] [address] Benjamin Henao MD Assigned PCP 10/05/[address] [place] [address] documented as of this encounter
--- OUTSIDE RECORDS SUMMARY | 2022-01-01 11:49 | XMS_ITS | Encounter Summary ---
:1945 Author Organization [place] Address [address] [place] [address] Care Team Providers Name Role Phone Eladio Nielsen Primary Care Provider Unavailable Benjamin Henao MD Unavailable Benjamin Henao MD Primary Care Provider Encounter Details Date Type Department Care Team Description [facility]/18[facility]2015 [facility], Winter jacobsen Social History [...] on filedocumented in this encounter Care Teams Liquor Inspector Relationship Specialty Start Date End Date Eladio Nielsen PCP - General 08/14/11 07/23/16 Benjamin Henao MD PCP - General Internal Medicine 07/24/[address] [place] [address] Benjamin Henao MD Assigned PCP 10/05/[address] [place] [address] documented as of this encounter
--- OUTSIDE RECORDS SUMMARY | 2022-01-01 11:49 | XMS_ITS | Encounter Summary ---
:1945 Author Organization [place] Address [address] [place] [address] Care Team Providers Name Role Phone Benjamin Henao MD Primary Care Provider Encounter Details Date Type Department Care Team Description 10/24/2016 Communication - [facility] Santos Krishna, [facility] and [facility] [address] [place] [address] [place] [address] [phone] (Work) [phone] Social History Tobacco Use Types Packs/Day Years Used Date Former Smoker Quit: 08/27/18 90 Alcohol Use Standard Drinks/Week Comments Yes 0 (1 standard drink = 0.6 oz pure alcoho l) Sex Assigned at Date Recorded Not on file documented as of this encounter Plan of Treatment Not on filedocumented as of this encounter Visit Diagnoses Not on filedocumented in this encounter Care Teams Reimbursement Coordinator Relationship Specialty Start Date End Date Benjamin Henao MD PCP - General Internal Medicine 07/24/16 [address] [place] [address] documented as of this encounter
--- OUTSIDE RECORDS SUMMARY | 2022-01-01 11:49 | XMS_ITS | Encounter Summary ---
:1945 Author Organization [facility] Address [address] [place] [address] Care Team Providers Name Role Phone Eladio Nielsen Primary Care Provider Unavailable Benjamin Henao MD Primary Care Provider Encounter Details Date Type Department Care Team Description 04/01/2014 Ambulatory - [facility] Provider, [facility] Information Management [address] [facility] [address] [place] [address] Social History Tobacco Use Types Packs/Day Years Used Date Former Smoker Quit: 08/27/18 90 Alcohol Use Standard Drinks/Week Comments Yes 0 (1 standard drink = 0.6 oz pure alcoho l) Sex Assigned at Date Recorded Not on file documented as of this encounter Plan of Treatment Not on filedocumented as of this encounter Visit Diagnoses Not on filedocumented in this encounter Care Teams Creative Services Designer Relationship Specialty Start Date End Date Eladio Nielsen PCP - General 08/14/11 07/23/16 Benjamin Henao MD PCP - General Internal Medicine 07/24/16 [address] [place] [address] documented as of this encounter
--- OUTSIDE RECORDS SUMMARY | 2022-01-01 11:49 | XMS_ITS | Encounter Summary ---
:1945 Author Organization [facility] Address [address] [place] [address] Care Team Providers Name Role Phone Eladio Nielsen Primary Care Provider Unavailable Benjamin Henao MD Primary Care Provider Reason for Visit Reason Comments Diabetes Encounter Details Date Type Department Care Team Description 11/19/2014 Office Visit - [facility] Eladio Nielsen Type II or [facility] Provider, Historical unspecified type [facility] diabetes mellitus [address] without menti on of Drive complication, not [place], [place] stated as [id number] uncontrolled [phone] Social History Tobacco Use Types Packs/Day Years [...] - Inhaled Oxygen Concentration - - Weight 139.7 kg (308 lb) 11/19/2014 8:29 AM CDT Height - - Body Mass Index 45.48 08/29/2011 1:37 PM CDT documented in this encounter Progress Notes Eladio Nielsen - 11/19/2014 8:39 AM CDT Endocrine note Faith Adames is a 69 y.o. male who is here today for follow-up of type 2 diabetes Past Medical History: 1. Patient Active Problem [...] Sibutramine 3. Habits: History Smoking status ??? Former Smoker Smokeless tobacco ??? Not on file [...] Main Topics ??? Smoking status: Former Smoker ??? Smokeless tobacco: Not on file ??? Alcohol Use: No ??? Drug Use: Not on file ??? Sexual Activity: Not on file Other Topics Concern ??? Not on file Social History Narrative ??? 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 He is currently taking metformin 1000 mg twice a day, Lantus 60 units at bedtime, and NovoLog 20 units per meal plus a correction of 2 units for every 40 mg percent his blood sugar is greater than 140. He occasionally adjusts the NovoLog based unanticipated caloric intake. He feels well. His last eye exam was in March 2014. He has no symptoms referable to his feet. He checks his blood sugars 2-3 times a day and did provide a blood sugar log book. There is absolutely no hypoglycemia. His lowest reading is in the 90s. He denies loss of consciousness, need for assistance or difficulty with driving. His average blood sugars in the mid 100s. Physical Exam: Blood pressure 138/72, pulse 72, weight 308 lb (139.708 kg). On examination he does not appear ill. He is obese. He is alert and his mood is affable. The feet demonstrate intact pulses, no deformities and intact monofilament sensation. There are no ulcerations. Labs: Hemoglobin A1c today is 7.1%. The most recent previous hemoglobin A1c in April 2014 was 7.4%. Imaging: None Assessment: Type 2 diabetes, well controlled Plan: 1. Medical nutritional therapy. The patient and his request consultation I think this is in order given his weight. 2. He will continue his current diabetic regimen. Ongoing management will be handled by his primary care physician. Eladio ANAYA Endocrinology 11/19/2014 8:39 AM documented in this encounter Plan of Treatment Not on filedocumented as of this encounter Procedures Procedure Name Priority Date/Time Associated Diagnosis Comme nts HEMOGLOBIN A1C Routine 11/19/2014 8:35 AM Results for this CDT procedure are i n the results section . documented in this encounter Results (ABNORMAL) Hemoglobin A1c (11/19/2014 8:35 AM CDT) Analysis Performed At Patho logist Time Signature Hemoglobin A1C 7.1 (H) 3.5 - 6.0 11/19/2014 [facility] % 9:19 AM CDT [facility] Specimen Anatomical Collection Method / Collection Time Recei nona Time (Source) Location / Volume Laterality Blood specimen Venipuncture / 11/19/2014 8:35 11/20/19 15 8:35 (specimen) Unknown AM CDT AM CDT Eladio Nielsen LAB - BLOOD ORDERABLES Performing Organization Address City/State/ZIP Code Phon e Number [id number] [place] [address] [place] [address] [phone] [facility]IC [facility] documented in this encounter Visit Diagnoses Diagnosis Type II or unspecified type diabetes mando litus without mention of complication, not stated as uncontrolled documented in this encounter Care Teams Manager Storage Relationship Specialty Start Date End Date Eladio Nielsen PCP - General 08/14/11 07/23/16 Benjamin Henao MD PCP - General Internal Medicine 07/24/16 [address] [place] [address] documented as of this encounter
--- OUTSIDE RECORDS SUMMARY | 2022-01-01 11:49 | XMS_ITS | Encounter Summary ---
:1945 Author Organization [facility] Address [address] [place] [id number] Care Team Providers Name Role Phone Benjamin Henao MD Primary Care Provider Reason for Visit Reason Comments Weight Problem Initial surgical-/07/26/16/Dr. Grant?/Bypass? Encounter Details Date Type Department Care Team Description 09/28/2016 Office Visit - [facility] Santos Krishna, Obesit y, Class III, BMI 40-49.9 (morbid obesity) (H); [facility] and Type II diabetes mellitus (H); Bariatrics Care [address] on CPAP; [place] [address] Essential hypertension; [address] [facility] [address] [address] [place], [place] [phone] (Work) [phone] Social History Tobacco Use Types Packs/Day Years [...] - Inhaled Oxygen Concentration - - Weight 145 kg (319 lb 9.6 oz) 09/28/2016 10:25 AM CDT Height 171.5 cm (5' 7.5) 09/28/2016 10:25 AM CDT Body Mass Index 49.32 09/28/2016 10:25 AM CDT documented in this encounter Progress Notes Santos Krishna MD - 09/28/2016 10:30 AM CDT Outpatient Bariatric Medicine Consultation on 09/28/2016, 11:13 AM. Indication: Medical Bariatric Consultation to Precede Bariatric Surgery Primary Provider: Benjamin Henao MD Requesting Physician: Dr. Grant Type of Bariatric Surgery: Falguni en Y Gastric Bypass Impression Faith Adames is a 71 y.o. year old male with has a past medical history of Diabetes mellitus; GERD (gastroesophageal reflux disease); Heart disease; Hyperlipemia; Hypertension; Intestinal polyps; Pneumonia; and Sleep apnea. Poor functional capacity and musculoskeletal disability due to morbid obesity which satisfies NIH criteria for bariatric surgery. His Body mass index is 49.32 kg/(m^2).. He was referred to our clinic by Dr. Ortega. Faith Adames hopes to achieve improved diabetic control and vascular risks after bariatric surgery. PLAN of ACTION: 1. Welcome to the program, contemplating a Falguni En Y gastric bypass. We'll see what your Cpeptide level looks like to determine the best procedure for you. If less than 2, complete remission of diabetes becomes less likely and a sleeve gastrectomy may be reasonable. 2. Consult with Surgeon to make sure they're comfortable with surgical weight loss. 3. Intakes with credit collection specialist and Bariatric psychology. 4. Intake labs can be done at your clinic anytime. 5. Support group at least once. 6. No alcohol the month before surgery and will decaffeinate himself the week before surgery. 7. See Care Everywhere for his cardiologists clearance note. No stress testing needed in light of painless walking daily of 3.5-4.5 miles on treadmill. 8. Continues to use CPAP and has support of his dry pan charger for weight loss as well (care everywhere). No hx of chronic lung disease, just followed by pulmonology for his severe BERNADETTE (AHI 24.6 [facility] Will bring his machine to his surgery. 9. DM II: A1c was a little high 08/06, due for recheck and will need to be below 8.1% to be a good candidate. He states his sugars are improved lately and anticipates an A1c below 8. Anticipate cutting Lantus in Half during liquid diet and titrating down to keep AM fasting glucose levels to 95-140 range along with stopping or dramatically reducing novolog insulin with meals during the preoperative liquid diet given low carb and using supplemental scale as needed. Would plan on continuing metformin post op and following blood sugars to make sure no insulin is needed. Insulin may need to restart if low or absent C- Peptide levels. BARIATRIC RECOMMENDATIONS Bariatric therapy is indicated for Faith as a means of modifying his obesity related co-morbidities. Therapeutic lifestyle changes have not lead to significant and or durable weight loss. Surgical bariatric therapy is most likely to induce significant weight loss, promote long-term weight maintenance and lead to clinical improvement and/or resolution of his weight related co-morbidities. -Medical Nutrition Therapy is indicated including comprehensive guidance of nutrition and lifestyle management. -A Bariatric Psychological Assessment and clearance is indicated. -Screening Bariatric Laboratory studies are indicated. -Currency of Routine Healthcare Maintenance is indicated. -Physical Activity Guidance was provided. Follow up of recommendations will be provided. PERIOPERATIVE RECOMMENDATIONS CARDIAC: Cardiac consultation and clearance will be required of patients with significant cardiac disease and/or multiple cardiac risk factors. (cleared). PULMONARY: Pre-operative therapy with CPAP/BIPAP is indicated for a minimum of one month for patients with sleep apnea. Complete tobacco abstinence for two months pre-operatively and indefinitely thereafter is required. RENAL: Diuretics will be discontinued 2 weeks before surgery at the time of liquid diet if the patient is on them at that time. ENDOCRINE: Optimizing perioperative glycemic control is indicated. Our goal is an AIC of 8 or less at the time of surgery for optimal healing. Patients using insulin will be referred to a [facility] manager location for perioperative insulin management. GASTROINTESTINAL: Evaluation of the esophagus and stomach by EGD and/or UGI series will be considered in patients with severe GERD, previous weight loss surgery, or other indication. EGD normal last year (see care everywhere). GYNECOLOGIC: For patients on Estrogen- Estrogen will be discontinued 4 weeks prior to surgery and resumed 4 weeks after surgery unless otherwise advised. Reliable contraception is required post-operatively for 1 year for women of childbearing age. DEPOT PROVERA is contraindicated due to its association with weight gain. Post-operative control plan is na MUSCULOSKELETAL/RHEUMATOLOGIC: NSAIDS are contraindicated following surgery and lifelong abstinence is indicated. When indicated for cardioprotection or otherwise, patients should use an enteric coatedASA and concomitant proton pump inhibitor. HEMATOLOGIC: Risks of deep venous thromboembolism have been assessed. Patients with history of DVT/PE or current anti-coagulation will be placed on the High Risk DVT Prophylaxis Protocol. Objections (if any) to receiving blood products if necessary have been documented. DENTAL: Reasonable and functional dentition is indicated in order to chew food to applesauce consistency post-operatively. NUTRITIONAL: Pre and post-operative nutritional and lifestyle modification guidance is indicated. Pre-operative weight reduction can reduce liver volume, improving technical aspects of surgery. History Surrounding Consultation Struggles with weight started at age [age] His weight at age 18 was 150 lbs. He has had several past supervised and unsupervised weight loss attempts The most weight lost was: steady at 300 lbs many years at least 5 years Unfortunately there was not durable weight maintenance. History of bulimia, anorexia, or binge eating disorder? no If Present has eating disorder been in remission at least 3 years? na Night time eating? no Dietary History Meals per day: 3 Snacks: afternoon. Typical Snack: cheese Who does the grocery shopping? shared Who does the cooking? She does A typical meal includes: dinner is meat with pasta/rice and vegetable. Regular Pop: no Juice: no Caffeine: coffee 3-4 days weekly, 4-5 days. Amount of restaurant eating per week: rare fast food, once Eating a the table with the TV off? Table only. Physical Activity Patterns Current physical activity routine includes: treadmill 60-90 minutes 3.5-4.5 miles. Didn't need stress test. Limitations from being physically active on a regular basis includes: n o He describes his general health as: good Past Medical History Past Medical History: Diagnosis Date ??? Diabetes mellitus type 2 ??? GERD (gastroesophageal reflux disease) better with prilosec ??? Heart disease ??? Hyperlipemia ??? Hypertension ??? Intestinal polyps every 5 years, next due in 2021. ??? Pneumonia 2014. ??? Sleep apnea use cpap Patient Active Problem List Diagnosis ??? Benign Adenomatosis Of The Large Intestine ??? Insomnia ??? Obesity ??? Type 2 diabetes mellitus ??? 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 Colonic Diverticulosis ??? Coronary Artery Disease ??? Hyperlipidemia ??? Hypertension ??? Esophageal Reflux ??? Obstructive Sleep Apnea ??? Benign Prostatic Hypertrophy ??? Microalbuminuria ??? Microcytic anemia HTN: on meds Dyslipidemia: on meds BERNADETTE: on cpap Obesity Hypoventilation: NO DM2: yes DM1: no DX: no Most recent AIC: 8.1% Neuropathy: no Nephropathy: no Retinopathy: no IFG or pre-DM: na IN: no CVA:no CHF: no Previous cardiac testing includes: stress testMCKENNAFAITH MELGAR Excellian ID: [id number] Age: 69 : 1945 Exam Date: 12/28/2014 11:25 Gender: M RN/Ex. Tube And Rod Straightener: EDITH Height: 69 in BSA: 2.47 m?? Monitoring Provider: KAILYN GARNETT Weight: 305 lbs BMI: 45 kg/m?? Ordering Provider: PERLA BLEVINS Location: Outpatient Procedure: STRESS TEST EXERCISE Indications: Coronary artery disease involving cahto coronary artery without angina pectoris, unspecified whether cahto or transplanted heart Technical Quality: FINAL CONCLUSIONS 1)?Mild to moderate impairment of exercise tolerance 2)?No electrocardiographic evidence for exercise induced coronary ischemia Date: 2012 Indication: Chest pain with equivocal stress test, coronary artery disease, dyspnea, abnormal EKG.? CONCLUSIONS: 1.?Fjfa-by-lpoxlpwr coronary artery disease as detailed below. 2.?The total coronary calcium score is 266, which places the patient at the 67th percentile in comparison to subjects of the same age, gender, and race/ethnicity who are free of clinical cardiovascular disease and treated diabetes in the ARCE database. 3.?Please review the radiology portion for incidental noncardiac findings. Note: Our cardiologists would be pleased to discuss this report or its clinical implications with you; for assistance, please call [phone] Cancers: no Kidney Disease: no DVT: no PE: no Colitis: no Crohn's: no IBS: no PUD: no Fatty Liver: no, but fatty pancreas on CT chest. Abnormal LFTs: nl Hepatitis: nl Asthma: nl Bronchitis: nl Pneumonia: once Other Lung Problems: no Back Pain:some DDD: no Gout: no Fibromyalgia: no Severe Headaches: no Seizures: no If so, last seizure: no Pseudotumor: na PCOS: na Menstrual Irregularity: na Menorrhagia: na Infertility: yes, three kids Thyroid problems: no Thyroid medications: no Glaucoma: no HIV positive: NO MRSA/VRE history: no History of Blood transfusion: no Anemia: no Medications Current Outpatient Prescriptions Medication Sig Dispense Refill ??? aspirin 81 mg chewable tablet Chew 81 mg daily. ??? atenolol (TENORMIN) 50 MG tablet Take 50 mg by mouth daily. As directed. ??? atorvastatin (LIPITOR) 40 MG tablet ??? blood sugar diagnostic (GLUCOSE BLOOD) [employer] Contour Test In Vitro Strip.TEST 4 - [...] current facility-administered medications for this visit. Allergies Cat dander; Lisinopril; and Sibutramine Past Surgical History History reviewed. No pertinent surgical history. History of problems with anesthesia: last colonoscopy went well no general anesthesia in the past. History of Malignant Hyperthermia: NO Family History family history includes Arthritis in his mother; Cancer in his brother; Cardiovascular in his father, sister, and sister; Diabetes in his brother, brother, brother, father, sister, sister, sister, sister, and sister; Heart attack in his brother, brother, and father; Heart disease in his brother, brothe r, brother, and father; Hyperlipidemia in his brother, brother, brother, father, sister, sister, sister, sister, and sister; Hypertension in his brother, brother, brother, sister, sister, sister, sister, and sister; Obesity in his father, sister, sister, sister, sister, and sister. Social History Social History Social History ??? Marital status: [...] Topics Concern ??? None Social History Narrative Work Status: retired. Addiction History Current or Past history of alcohol or substance abuse: no Last used: no Chemical Dependency Treatment History: no Chemicals: no Informed about need to be tobacco free 2 months before and indefinitely after surgery due to risk ofMarginal Ulcers. Psychiatric History Diagnoses: none Treated by: no Psychiatric Hospitalizations: no Suicide attempts: no Panic attacks: no History of Abuse: no Palliative Medicine History Involvement in a pain clinic: no Dental History Missing teeth: no Pending Dental Work: no Regular Dental Visits: yes Dentures/Partials: no ROS: Snoring: yes Witnessed Apneas yes, uses cpap PND no [place] Score: na STOP BANG: na General Fatigue: mild Sleep Quality:poor HEENT Visual changes: no Cardiovascular Murmur: no Elevated BP: on meds Chest Pain with Exertion: can walk 90 minutes without pain/sx. Dyspnea with Exertion: no Palpitations: no Lower Extremity Edema: no Syncope: no Blood Clotting Problems: no Pulmonary Shortness of breath at rest: no Wheezing: no CPAP use: yes Gastrointestinal Trouble swallowing:no Heartburn: controlled HX UGI/EGD: Normal 05/03/15 for screening purposes. Abdominal pain: no Hematochezia: no Urologic Hesitancy: no Urgency: no Bloody Urine:no Genitourinary ED: na Menorrhagia: no Dysmenorrhea: no Neurologic Severe headache:no Paresthesias: no. Psychiatric Moods Stable: yes Hallucinations: no Rheumatologic Myalgias: back Arthralgias: back Endocrine Polydipsia: no Polyuria: no Galactorrhea: no Heat intolerance: yes Hirsutism: no Musculoskeletal Joint pain:back Falls: no Use of cane, crutch or motorized scooter: no Hematologic Abnormal Bleeding or Clotting: no Dermatologic Skin Tags: axillary Striae: no Furuncles/boils: no Acne: no Intertrigo: no Lower Leg ulcers: no Physical Exam Vitals: BP 170/81 (Patient Site: Right Arm, Patient Position: Sitting, Cuff Size: Adult Large) Pulse 66 Ht 5' 7.5 (1.715 m) Wt (!) 319 lb 9.6 oz (145 kg) SpO2 97% BMI 49.32 kg/m2 Height: Ht Readings from Last 1 Encounters: 09/28/16 5' 7.5 (1.715 m) Weight: Wt Readings from Last 1 Encounters: 09/28/16 (!) 319 lb 9.6 oz (145 kg) Height: 5' 7.5 (1.715 m) (09/28/2016 10:25 AM) Initial Weight: 319.6 lbs (09/28/2016 10:25 AM) Weight: 319 lb 9.6 oz (145 kg) (09/28/2016 10:25 AM) Weight loss from initial: 0 (09/28/2016 10:25 AM) % Weight loss: 0 % (09/28/2016 10:25 AM) BMI (Calculated): 49.3 (09/28/2016 10:25 AM) SpO2: 97 % (09/28/2016 10:25 AM) Heart Rate (/min): 66 (09/28/2016 10:25 AM) BP (mmHg): 170/81 (09/28/2016 10:25 AM) Waist Circumference (In): 54.75 Inches (09/28/2016 10:25 AM) Hip Circumference (In): 57.6 Inches (09/28/2016 10:25 AM) Neck Circumference (In): 19.25 Inches (09/28/2016 10:25 AM) Body mass index is 49.32 kg/(m^2). General Appearance No acute distress. Obesity: central, class III. Alert: yes Sleepy: no HEENT PERRLA, EOMI Neck Cuello: no nodules. No carotid bruits Airway: patent, Mallampati 3 Cardiovascular Rhythm regular Rate Regular Murmur: none Pulmonary [place] Score: na Lungs clear to ascultation Abdomen No rashes. Post surgical Scars: none Extremities: Pitting edema: none Palpable distal pulses: 2 plus DP and radial. Hair on feet and calves c/w good circulation. Varicose veins: none Neurologic Tremors: none Alert and oriented with intact cognition. Speech fluent and cranial nerves are grossly intact. Psychiatric Thought Content Organized Mood appears stable Endocrine Mancilla Facies: NO Dorsal Thoracic Prominence: NO Skin tags: few axillary. Acanthosis nigricans: none. Dermatologic Intertrigo: small irritation to right pannus, no yeast evident. No pallor or jaundice or bruising. LABS on File: No results found for: [id number] No results found for: [id number] WBC Date Value Ref Range Status 05/08/2016 9.7 4.0 - 11.0 thou/uL Final Hemoglobin Date Value Ref Range Status 05/08/2016 12.2 (L) 14.0 - 18.0 g/dL Final 11/07/2015 11.9 (L) 14.0 - 18.0 g/dL Final Hematocrit Date Value Ref Range Status 05/08/2016 36.8 (L) 40.0 - 54.0 % Final MCV Date Value Ref Range Status 05/08/2016 82 80 - 100 fL Final Platelets Date Value Ref Range Status 05/08/2016 153 140 - 440 thou/uL Final AST Date Value Ref Range Status 07/24/2016 25 0 - 40 U/L Final ALT Date Value Ref Range Status 07/24/2016 26 0 - 45 U/L Final Alkaline Phosphatase Date Value Ref Range Status 07/24/2016 84 45 - 120 U/L Final Bilirubin, Total Date Value Ref Range Status 07/24/2016 0.7 0.0 - 1.0 mg/dL Final No results found for: LIPASE No results found for: INR Hemoglobin A1c Date Value Ref Range Status 07/24/2016 8.1 (H) 3.5 - 6.0 % Final 05/08/2016 8.1 (H) 3.5 - 6.0 % Final 11/07/2015 7.8 (H) 3.5 - 6.0 % Final No results found for: TSH No results found for: PTH No results found for: [id number] Ferritin Date Value Ref Range Status 01/10/2016 39 27 - 300 ng/mL Final Triglycerides Date Value Ref Range Status 07/24/2016 144 <=149 mg/dL Final Cholesterol Date Value Ref Range Status 07/24/2016 144 <=199 mg/dL Final HDL Cholesterol Date Value Ref Range Status 07/24/2016 37 (L) >=40 mg/dL Final No results found for: FOLATE No components found for: THIAMINE No results found for: TESTOSTERONE No results found for: [id number] Counseled on what to expect regarding the post operative dietary recommendations which include: -eating 3 meals daily -eating protein first, getting >60gm protein daily 80gm if duodenal switch -eating slowly, chewing food well -avoiding/limiting calorie containing beverages -drinking water 15-30 minutes before or after meals -choosing wheat, not white with breads, crackers, pastas, marcial, bagels, tortillas, rice -limiting restaurant or cafeteria eating to twice [...] healthier weight. We discussed the importance of lifelong vitamin supplementation and lifelong follow-up. Faith Sanchez Mckennareyna was reminded that, postoperatively, to avoid marginal ulcers he should avoid tobacco at all, alcohol in excess, caffeine in excess, and NSAIDS (unless indicated for cardioprotectionor othewise and opposed by a PPI). He was also reminded on the lifelong need for vitamin supplementation after bariatric surgery due topost operative malabsorption to maintain adequate nutrition and health. He was reminded that after bariatric surgery alcohol will affect him differently and he should not drive after consuming even one alcoholic beverage. Time spent 60 minutes [id number]-ymny with over 50% of the time spent counseling about how excess weight may affect him health, improving dietary hygiene and habits, details of the bariatric surgery pathway and our expectations and requirements prior to any surgery, and coordination of treatment plan. documented in this encounter Plan of Treatment Not on filedocumented as of this encounter Visit Diagnoses Diagnosis Obesity, Class III, BMI 40-49.9 (morbid obesity) (H) Morbid obesity Type II diabetes mellitus (H) Type II or unspecified type diabetes mando litus without mention of complication, not stated as uncontrolled BERNADETTE on CPAP Obstructive sleep apnea (adult) (pediatr ic) Essential hypertension Unspecified essential hypertension Esophageal reflux documented in this encounter Care Teams Wireless Telegrapher Relationship Specialty Start Date End Date Benjamin Henao MD PCP - General Internal Medicine 07/24/16 [address] [place] [address] documented as of this encounter
--- OUTSIDE RECORDS SUMMARY | 2022-01-01 11:49 | XMS_ITS | Encounter Summary ---
:1945 Author Organization [facility] [place] Address [address] [place] [address] Care Team Providers Name Role Phone Eladio Nielsen Primary Care Provider Unavailable Benjamin Henao MD Primary Care Provider Encounter Details Date Type Department Care Team Description 05/08/2016 Communication - [facility] HE E-VISITS Provider, [...] on filedocumented in this encounter Care Teams Bag End Sewer Relationship Specialty Start Date End Date Eladio Nielsen PCP - General 08/14/11 07/23/16 Benjamin Henao MD PCP - General Internal Medicine 07/24/16 [address] [place] [address] documented as of this encounter
--- OUTSIDE RECORDS SUMMARY | 2022-01-01 11:49 | XMS_ITS | Encounter Summary ---
:1945 Author Organization [facility] Address [address] [place] [address] Care Team Providers Name Role Phone Eladio Nielsen Primary Care Provider Unavailable Benjamin Henao MD Primary Care Provider Encounter Details Date Type Department Care Team Description 03/14/2015 [facility] Benjamin Henao MD [facility] [[email or web address]] [address] [facility] [address] [place] [address] [place], [place] [phone] (Wo rk) [address] [phone] Social History Tobacco Use Types Packs/Day Years Used Date Former Smoker Quit: 08/27/18 90 Alcohol Use Standard Drinks/Week Comments Yes 0 (1 standard drink = 0.6 oz pure alcoho l) Sex Assigned at Date Recorded Not on file documented as of this encounter Plan of Treatment Not on filedocumented as of this encounter Visit Diagnoses Not on filedocumented in this encounter Care Teams Torch Cutter Relationship Specialty Start Date End Date Eladio Nielsen PCP - General 08/14/11 07/23/16 Benjamin Henao MD PCP - General Internal Medicine 07/24/[address] [place] [address] documented as of this encounter
--- OUTSIDE RECORDS SUMMARY | 2022-01-01 11:49 | XMS_ITS | Encounter Summary ---
:1945 Author Organization [facility] Address [address] [place] [address] Care Team Providers Name Role Phone Eladio Nielsen Primary Care Provider Unavailable Benjamin Henao MD Primary Care Provider Reason for Visit Reason Comments Hypertension Diabetes fasting - yes Medication Refill insurance cover cialis - wou ld like the generic for viagra Encounter Details Date Type Department Care Team Description [facility] essential [facility]; [facility] Jose R FORTUNE Type II or unspecified type diabetes mando litus without mention of complication, not stated as uncontrolled; [facility] (erectile dysfunction) [address] [place] [phone] Social History Tobacco Use Types Packs/Day Years [...] - - Weight 139.7 kg (308 lb) 09/01/2014 9:35 AM CDT Height - - Body Mass Index 45.48 08/29/2011 1:37 PM CDT documented in this encounter Progress Notes Benjamin Henao - 09/01/2014 10:[address] Adames presents for follow-up of his chronic medical conditions. On his diabetes under fairlygood control, with his last hemoglobin A1c being 7.4 back in April 2014. He regularly sees Dr. Nielsen, and Dr. Nielsen is going to see him in October sometime. Blood pressure is under good control today. He is taking his losartan and atenolol on a regular basis. He is interested in getting a prescription for Viagra, as his insurance would not cover Cialis. A complete review of systems was negative today. Objective: Vital signs are as per the EMR. In general the patient is alert pleasant and in no acute distress. He appears healthy. Assessment and plan: Type 2 diabetes, controlled. He'll continue his current insulin regimen and follow-up with Dr. Nielsenin 6 months. Next #2. Hypertension, controlled. #3. Erectile dysfunction. Prescription for Viagra was given. documented in this encounter Plan of Treatment Not on filedocumented as of this encounter Visit Diagnoses Diagnosis Unspecified essential hypertension Type II or unspecified type diabetes mando litus without mention of complication, not stated as uncontrolled ED (erectile dysfunction) Impotence of organic origin documented in this encounter Care Teams Mix House Tender Relationship Specialty Start Date End Date Eladio Nielsen PCP - General 08/14/11 07/23/16 Benjamin Henao MD PCP - General Internal Medicine 07/24/16 [address] [place] [address] documented as of this encounter
--- OUTSIDE RECORDS SUMMARY | 2022-01-01 11:49 | XMS_ITS | Encounter Summary ---
:1945 Author Organization [facility] Address [address] [place] [address] Care Team Providers Name Role Phone Eladio Nielsen Primary Care Provider Unavailable Benjamin Henao MD Primary Care Provider Encounter Details Date Type Department Care Team Description 05/16/2016 [facility] Benjamin Henao MD [facility] 1824 [facility] [address] [place] [address] [place], [place] [phone] (Wo rk) [address] [phone] Social History Tobacco Use Types Packs/Day Years Used Date Former Smoker Quit: 08/27/18 90 Alcohol Use Standard Drinks/Week Comments Yes 0 (1 standard drink = 0.6 oz pure alcoho l) Sex Assigned at Date Recorded Not on file documented as of this encounter Plan of Treatment Not on filedocumented as of this encounter Visit Diagnoses Not on filedocumented in this encounter Care Teams Automobile Mechanic Apprentice Relationship Specialty Start Date End Date Eladio Nielsen PCP - General 08/14/11 07/23/16 Benjamin Henao MD PCP - General Internal Medicine 07/24/[address] [place] [address] documented as of this encounter
--- OUTSIDE RECORDS SUMMARY | 2022-01-01 11:49 | XMS_ITS | Encounter Summary ---
:1945 Author Organization [facility] Address [address] [place] [address] Care Team Providers Name Role Phone Morales Eladio Kim Primary Care Provider Unavailable Benjamin Henao MD Primary Care Provider Reason for Visit Reason Comments Diabetes check up Blood Pressure Check Encounter Details Date Type Department Care Team Description 03/11/2015 Office Visit - [facility] Benjamin Henao, Type II or unspecified type diabetes mellitus without mention of complication, not stated as uncontrolled; [facility] Jose R [place] Unspecified essential hypertension; [facility] [facility] Other and unspecified hyperl ipidemia; [address] Chronic reflux es[address] [place], [place] [id number] Social History Tobacco Use Types Packs/Day [...] - Inhaled Oxygen Concentration - - Weight 139.1 kg (306 lb 11.2 oz) 03/11/2015 9:10 AM CLIENT PROJECT COORDINATOR Height 174 cm (5' 8.5) 03/11/2015 9:10 AM CLIENT PROJECT COORDINATOR Body Mass Index 45.96 03/11/2015 9:10 AM CLIENT PROJECT COORDINATOR documented in this encounter Progress Notes Benjamin Henao Chilo - 03/11/2015 9:22 AM CST ASSESSMENT: #1. Type 2 diabetes, degree of control to be determined. #2. Hypertension, controlled. #3. Hyperlipidemia. #4. Coronary artery disease, stable. #5. Chronic reflux. PLAN: Check a CMP, fasting lipid profile, A1c, and urine microalbumin. I'm also getting get him set up forEGD. Follow-up in 6 months. There are no discontinued medications. No Follow-up on file. CHIEF COMPLAINT: Chief Complaint Patient presents with ??? Diabetes check up ??? Blood Pressure Check HISTORY OF PRESENT ILLNESS: Faith Adames is a 69 y.o. male presenting to the clinic today for multiple health concerns. He mentions that he is not having any issues with breathing or experiencing chest pains. He is otherwise feeling physically fine. Diabetes: he was last seen by Dr. Nielsen on 11/19/14 and his last A1c was at 7.1. He is currently on Metformin 1000 mg, Lantus 60 units, and Novolog 20 units and tolerating the medication regiment well. His blood sugars are between the 130- 160's and his highest blood sugar seems to be at 247. He has been doing a lot more exercise but recently he has not because his brother last month. He isstill grieving. GERD: he mentions that this is still an issue. He does not have a lot of trouble with swallowing butwhen he does have some issues he drinks water. He reports that he does not experience heart burn or acid reflux as frequently as his brother but he worries about this situation. Hypertension: his blood pressure is at goal today at 130/78. He is currently on losartan 25 mg and atenolol 50 mg, denies any side effects. Lymph node: he mentions that he would like his lymph node in his left neck/shoulder seems to be getting bigger. He would like to have it looked at to make sure all things are normal. He reports that [id number] he had an MRI done and it was negative for any cancerous lymph nodes. He would like to just be careful with his health. Health Maintenance: his last colonoscopy was done in August 2011. He is interested in another colonoscopy within a year or two. He will make an appointment with his eye doctor in the near future. REVIEW OF SYSTEMS: All other systems are negative. PFSH: His brother just recently . TOBACCO USE: History Smoking status ??? Former Smoker Smokeless tobacco ??? Former User VITALS: Filed Vitals: 03/11/15 0910 BP: 130/78 Pulse: 78 Height: 5' 8.5 (1.74 m) Weight: 306 lb 11.2 oz (139.118 kg) Wt Readings from Last 3 Encounters: 03/11/15 306 lb 11.2 oz (139.118 kg) 01/05/15 306 lb (138.801 kg) 12/22/14 308 lb 6.4 oz (139.889 kg) PHYSICAL EXAM: Constitutional: Reveals an alert, pleasant elderly male. Vitals: Per nursing notes. HEENT: Pupils are equal, round, and reactive to light. Oropharynx is clear. Ears: External canals, TMs clear. LYMPHATIC: No anterior or posterior lymphadenopathy. No cervical lymph nodes. CV: S1, S2, regular rate and rhythm, no murmurs, gallops, or rubs LUNGS: Clear to auscultation bilaterally ABDOMEN: Soft, non-tender, non-distended EXTREMITIES: No pedal edema bilaterally. ADDITIONAL HISTORY SUMMARIZED (FROM OLD RECORDS OR HISTORY FROM SOMEONE OTHER THAN THE PATIENT OR ANOTHER HEALTHCARE PROVIDER), COLONOSCOPY (2 TOTAL): Reviewed Dr. Nielsen's medical note from 11/19/14: His diabetes is under okay control He is currently on metformin 1000, Lantus 60 units, and Novolog 20 un its. He is tolerating his medication regiment well. DECISION TO OBTAIN EXTRA INFORMATION (OLD RECORDS REQUESTED OR HISTORY FROM ANOTHER PERSON OR ACCESSING CARE EVERYWHERE) (1 TOTAL):none RADIOLOGY TESTS SUMMARIZED OR ORDERED (XRAY/CT/MRI/DXA/MAMMO) (1 TOTAL): none LABS REVIEWED OR ORDERED (1 TOTAL): Labs reviewed from 11/19/14: A1c 7.1. 05/20/14: CMP normal, glucose 224. Labs ordered today. MEDICINE TESTS SUMMARIZED OR ORDERED (EKG/ECHO/EGD) (1 TOTAL): Stress test reviewed from 12/28/14: no ECG evidence of induced coronary ischemia. INDEPENDENT REVIEW OF EKG OR X-RAY (2 EACH): none The visit lasted a total of 15 minutes face to face with the patient. Over 50% of the time was spentcounseling and educating the patient about multiple health concerns. I, Zana Trevizo, am scribing for and in the presence of, Dr. Benjamin Henao. I, Dr. Benjamin Henao, personally performed the services described in this documentation, as scribed by Zana Trevizo in my presence, and it is both [...] medications for this visit. Total data points: 4 NT PROJECT COORDINATOR documented in this encounter Plan of Treatment Not on filedocumented as of this encounter Procedures Procedure Name Priority Date/Time Associated Diagnosis Comme nts LIPID PROFILE Routine 03/11/2015 9:40 AM Results for this CLIENT PROJECT COORDINATOR procedure are i n the results section . HEMOGLOBIN A1C Routine 03/11/2015 9:40 AM Results for this CLIENT PROJECT COORDINATOR procedure are i n the results section . documented in this encounter Results (ABNORMAL) Hemoglobin A1c (03/11/2015 9:40 AM CLIENT PROJECT COORDINATOR) Analysis Performed At [facility] logist Time Signature Hemoglobin A1C 7.7 (H) 3.5 - 6.0 03/11/2015 [facility] % 10:00 AM CLIENT PROJECT COORDINATOR [facility] Specimen Anatomical Collection Method / Collection Time Recei nona Time (Source) Location / Volume Laterality Blood specimen Venipuncture / 03/11/2015 9:40 03/11/20 15 9:40 (specimen) Unknown AM CLIENT PROJECT COORDINATOR AM CLIENT PROJECT COORDINATOR Benjamin Henao MD LAB - BLOOD ORDERABLES Performing Organization Address City/State/[facility] Code Phon e Number [id number] [place] [address] [place] [phone] CLINIC LABORATORY Lipid Profile (03/11/2015 9:40 AM CLIENT PROJECT COORDINATOR) [facility] gist Method Time Signature Cholesterol 135 <=199 03/11/2015 [facility] mg/dL 3:29 PM CLIENT PROJECT COORDINATOR [facility] Triglycerides 118 <=149 03/11/2015 [facility] mg/dL 3:29 PM CLIENT PROJECT COORDINATOR [facility] Direct Measure HDL 41 >=40 mg/dL 03/11/2015 [facility] 3:29 PM CLIENT PROJECT COORDINATOR [facility] LDL Cholesterol 70 <=129 03/11/2015 [facility] Calculated mg/dL 3:29 PM CLIENT PROJECT COORDINATOR [facility] Patient Fasting > Yes 03/11/2015 [facility] 8hrs? 3:29 PM [facility] Specimen Anatomical Collection Method / Collection Time Recei nona Time (Source) Location / Volume Laterality Blood specimen Venipuncture / 03/11/2015 9:40 03/11/20 15 2:16 (specimen) Unknown AM CLIENT PROJECT COORDINATOR PM CLIENT PROJECT COORDINATOR Benjamin Henao MD LAB - BLOOD ORDERABLES Performing Organization Address City/State/ZIP Code Phon e Number [place] [address] [phone] [facility] [address] [facility] documented in this encounter Visit Diagnoses Diagnosis Type II or unspecified type diabetes mando litus without mention of complication, not stated as uncontrolled Unspecified essential hypertension Other and unspecified hyperlipidemia Chronic reflux esophagitis documented in this encounter Care Teams Credit Control Clerk Relationship Specialty Start Date End Date Eladio Nielsen PCP - General 08/14/11 07/23/16 Benjamin Henao MD PCP - General Internal Medicine 07/24/[address] [place] [address] documented as of this encounter
--- OUTSIDE RECORDS SUMMARY | 2022-01-01 11:50 | XMS_ITS | Encounter Summary ---
:1945 Author Organization [place] Address [address] [place] [address] Care Team Providers Name Role Phone Eladio Nielsen Primary Care Provider Unavailable Reason for Visit Auth/Cert - Closed Specialty Diagnoses / Procedures Referred By Contact Refer red To Contact Gastroenterology Diagnoses Polyp History Rh Endoscopy Procedures COLONOSCOPY [address] [place] [address] Phone: Fax: Referral ID Status Reason Start Date Expiration Date Visits Requ ested Visits Authorized [id number] Closed 08/14/2011 02/10/2012 1 1 Encounter Details Date Type Department Care Team Description 08/29/2011 Surgery [facility] Endoscopy Duncan Lucas MD COLONOSCOPY [place] XXX RETIRED XXX [address] [place] [address] [place] [address] [phone] Surgery Details Date/Time Status Location OR Service Patient Class Case Case Trauma Class Type Case? 08/29/11 1:30 Posted GI GI A Gastroenterology Outpatient PM Panel 1 Procedure LRB Anes Op Region Wound Class Commen ts COLONOSCOPY N/A Conscious Sedation Rectum II-Clean Contami nated COLONOSCOPY Surgeon Surgeon Role Service Panel Duncan Lucas MD Primary Gastroenterology 1 Special Needs Referring: Dr Eladio Nielsen documented in this encounter Social History Tobacco Use Types Packs/Day Years Used Date Former Smoker Quit: 08/27/18 90 Alcohol Use Standard Drinks/Week Comments Yes 0 (1 standard drink = 0.6 oz pure alcoho l) Sex Assigned at Date Recorded Not on file documented as of this encounter Last Filed Vital Signs Vital Sign Reading Time Taken Comments Blood Pressure 128/72 08/29/2011 3:00 PM CDT Pulse - - Temperature - - Respiratory Rate 14 08/29/2011 3:00 PM CDT Oxygen Saturation 95% 08/29/2011 2:50 PM CDT Inhaled Oxygen Concentration - - Weight 136.1 kg (300 lb) 08/29/2011 1:37 PM CDT Height 175.3 cm (5' 9) 08/29/2011 1:37 PM CDT Body Mass Index 44.3 08/29/2011 1:37 PM CDT documented in this encounter Medications at Time [...] 12/16/2020 mouth. documented as of this encounter H&P Notes Duncan Lucas MD - 08/29/2011 2:02 PM CDT Pre-Endoscopy History and Physical Faith Adames Date of : 1945 Age: [age] year old Date of Procedure: 08/29/2011 Primary care provider: ELADIO NIELSEN Type of Endoscopy: esophagogastroduodenoscopy (upper GI endoscopy) Reason for Procedure: hx of polyps Type of Anesthesia Anticipated: Moderate (conscious) sedation } HPI: Faith is a 65 year old male who will be undergoing the above procedure. A history and physical has been performed. The patient's medications and allergies have been reviewed. The risks and benefits of the procedure and the sedation options and risks were discussed with thepatient. All questions were answered and informed consent was obtained. He denies a personal or family history of anesthesia complications or bleeding disorders. Not on File No current outpatient prescriptions on file. There is no problem list on file for this patient. Past Medical History Diagnosis Date ??? Diabetes mellitus ??? Hypertension ??? Sleep apnea, obstructive per patient Past Surgical History Procedure Date ??? Colonoscopy History Substance Use Topics ??? Smoking status: Former Smoker Quit date: 08/27/1989 ??? Smokeless tobacco: Not on file ??? Alcohol Use: Yes History reviewed. No pertinent family history. REVIEW OF SYSTEMS: 5 point ROS negative except as noted above in HPI, including Gen., Resp., CV, GI & system review. PHYSICAL EXAM: BP 138/72 Resp 9 Ht 1.753 m (5' 9) Wt 136.079 kg (300 lb) BMI 44.30 kg/m2 SpO2 97% Estimated Body mass index is 44.30 kg/(m^2) as calculated from the following: Height as of this encounter: 5' 9(1.753 m). Weight as of this encounter: 300 lb(136.079 kg). GENERAL APPEARANCE: healthy MENTAL STATUS: alert AIRWAY EXAM: Mallampatti Class I (visualization of the soft palate, fauces, uvula, anterior and posterior pillars) RESP: lungs clear to auscultation - no rales, rhonchi or wheezes CV: normal S1 S2, no S3 or S4 DIAGNOSTICS: Not indicated IMPRESSION ASA Class 1 - Healthy patient, no medical problems PLAN: endoscopy The above has been forwarded to the consulting provider. Signed Electronically by: Duncan Lucas August 29, 2011 . documented in this encounter Nursing Notes Mary Grace Velazquez RN - 08/29/2011 2:17 PM CDT Terminal ileum intubated during colonoscopy/WW documented in this encounter Plan of Treatment Not on filedocumented as of this encounter Procedures Procedure Name Priority Date/Time Associated Diagnosis Comme nts COLONOSCOPY 08/29/2011 1:42 PM CDT hx of polyps Special Needs Referring: Dr Eladio Nielsen COLONOSCOPY Routine 08/29/2011 1:31 PM CDT Resul ts for this procedure are in the results section . documented in this encounter Results COLONOSCOPY (08/29/2011 1:31 PM CDT) [facility] Method Time Signature COLONOSCOPY [facility] RAD IOLOGY RESULTS Patient Name: Faith sharma ? Procedure Date: 08/29/2011 1:31:11 PM ? Date of : 1945 ?Admit Type: Outpatient ? Age: 65 ? Gender: Male ? Attending MD: Duncan Rubio MD ? Procedure: ?Colonoscopy Indications: ?Personal history of colonic polyps Providers: ?Duncan Lucas MD Referring MD: ? Eladio Nielsen MD, Faith Adames MD Medicines: ?Fentanyl 100 micrograms IV, Midazolam 2 mg IV, ?Atropine 0.6 mg IV Complications: ?No immediate complications Procedure: ?Pre-Anesthesia Assessment: ?- Prior to the procedure, a History and Physical ?was performed, and patient medications and ?allergies were reviewed. The patient is competent. ?The risks and benefits of the procedure and the ?sedation options and risks were discussed with the ?patient. All questions were answered and informed ?consent was obtained. Patient identification and ?proposed procedure were verified by the physician ?in the procedure room. Mental Status Examination: ?alert and oriented. Airway Examination: normal ?oropharyngeal airway and neck mobility. Respiratory ?Examination: clear to auscultation. CV Examination: ?normal. ASA Grade Assessment: I - A normal, healthy ?patient. After reviewing the risks and benefits, ?the patient was deemed in satisfactory condition to ?undergo the procedure. The anesthesia plan was to ?use moderate sedation / analgesia (conscious ?sedation). Immediately prior to administration of ?medications, the patient was re-assessed for ?adequacy to receive sedatives. The heart rate, ?respiratory rate, oxygen saturations, blood ?pressure, adequacy of pulmonary ventilation, and ?response to care were monitored throughout the ?procedure. The physical status of the patient was ?re-assessed after the procedure. ?After obtaining informed consent, the colonoscope ?was passed under direct vision. Throughout the ?procedure, the patient's blood pressure, pulse, and ?oxygen saturations were monitored continuously. The ?Colonoscope was introduced through the anus and ?advanced to the terminal ileum. The colonoscopy was ?performed without difficulty. The patient tolerated ?the procedure well. The quality of the bowel ?preparation was excel lent. ? Findings: ? The digital rectal ex am was normal. A few small-mouthed diverticula were ? found in the sigmoid colon. The rectum, descending co mike, splenic ? flexure, transverse colon, hepatic flexure, ascending colon, cecum, ? appendiceal orifice, ileocecal valve and ileum appear ed normal. The ? retroflexed view of the anal verge was normal and germaine wed no anal or ? rectal abnormalities. The terminal ileum appeared nor mal. ? - Multiple venous lakes were seen throughout the colo n. ? Impression: ? - Diverticulosis sigmoid co mike. ?- The rectum, descending colon, splenic flexure, ?transverse colon, hepatic flexure, ascending colon, ?cecum, appendiceal orifice, ileocecal valve and ?terminal ileum are no rmal. ?- The examined portion of the ileum was normal. Recommendation: ? - Discharge patient to home ( ambulatory). ?- Repeat colonoscopy in 5 years for surveillance. ?- Return to primary care physician PRN. ? Judy Lucsa M.D Duncan Lucas MD Signed Date: 08/29/2011 2:29:49 PM Number of Addenda: 0 I was physically present for the entire viewing portion of t he exam. Note Initiated On: 08/29/2011 1:31:11 PM Scope Withdrawal Time: 0 hours 8 minutes 31 seconds Total Procedure Duration: 0 hours 17 minutes 1 second Specimen (Source) Anatomical Collection Method Collection Time Re ceived Time Location / / Volume Laterality 08/29/2011 1:31 PM CDT Eladio Nielsen PROCEDURES Performing Organization Address City/State/ZIP Code Phon e Number RADIOLOGY RESULTS documented in this encounter Visit Diagnoses Not on filedocumented in this encounter Administered Medications Inactive Administered Medications - up to 3 most recent administrations Medication Order MAR Action Action Date Dose Rate Site atropine injection Given 08/29/2011 2:05 PM CDT 0.6 mg PRN, Starting on Sat08/29/11 at 1405, Intra-procedure fentaNYL (SUBLIMAZE) injection Given 08/29/2011 2:04 PM CDT 100 mcg PRN, moderate to severe pain, Starting on Sat08/29/11 at 1404, Intra-procedure midazolam (VERSED) injection Given 08/29/2011 2:05 PM CDT 2 mg PRN, anxiety, Starting on Sat08/29/11 at 1405, Intra-procedure documented in this encounter Active and Recently Administered Medications Times are shown in CDT. PRN Medication Order 08/27/2011 08/28/2011 08/29/2011 atropine injection (CANCELED) 14 05 (Given - Provider: Duncan Lucas MD) PRN, Starting 08/29/11 at 1405, Intra-procedure fentaNYL (SUBLIMAZE) injection (CANCELED) 1404 (Given - Provider: Duncan Lucas MD) PRN, moderate to severe pain, Starting 08/29/11 at 1404, Intra -procedure midazolam (VERSED) injection (CANCELED) 1405 (Given - Provider: Duncan Lucas MD) PRN, anxiety, Starting Sat08/29/11 at 1405, Intra-procedure documented in this encounter Care Teams Occupational Therapy Supervisor Relationship Specialty Start Date End Date Eladio Nielsen PCP - General 08/14/11 07/23/16 documented as of this encounter
--- OUTSIDE RECORDS SUMMARY | 2022-01-01 11:50 | XMS_ITS | Encounter Summary ---
:1945 Author Organization [facility] Address [address] [place] [address] Care Team Providers Name Role Phone Unavailable Primary Care Provider Unavailable Encounter Details Date Type Department Care Team Description 06/28/2004 GI Procedure [facility] Duncan Lucas MD None Endoscopy [place] XX RETIRED XXX [address] [facility] [place] [address] [place] [address] [phone] Social History Tobacco Use Types Packs/Day Years Used Date Never Assessed Sex Assigned at Date Recorded Not on file documented as of this encounter Plan of Treatment Not on filedocumented as of this encounter Procedures Procedure Name Priority Date/Time Associated Diagnosis Comme nts UPPER GI ENDOSCOPY Routine 06/28/2004 8:10 AM Res ults for this AERONAUTICAL PROJECT ENGINEER procedure are i n the results section. COLONOSCOPY Routine 06/28/2004 7:10 AM Results f or this AERONAUTICAL PROJECT ENGINEER procedure are i n the results section. documented in this encounter Results UPPER GI ENDOSCOPY (06/28/2004 8:10 AM AERONAUTICAL PROJECT ENGINEER) Component Value Ref Test Analysis Performed At [facility] Range Method Time Signature Upper GI [facility] RADIOLOGY Endoscopy RESULTS Patient Name: Faith Adames ?Gender: M Exam Date: ?06/28/2004 08:10 AM Procedure: ? Upper GI endoscopy Indications: ? Heartburn Providers: ? Duncan Lucas MD Referring MD: ?Charanjit Adames MD Medicines: ? Midazolam 2 mg IV, Benzocaine spray Complications: ?? No immediate complications Procedure: ? A History and Physical has been performe d, and patient ? med ication allergies have been reviewed. The patient's ? mirella erance of previous anesthesia has been reviewed. The ? ris ks and benefits of the procedure and the sedation options ? and risks were discussed with the patient. All questions ? wer e answered and informed consent was obtained. Mental ? Sta tus Examination: normal. Airway Examination: normal ? oropharyngeal airway and neck mobility. Respiratory ? Exa mination: clear to auscultation. CV Examination: normal. ? ASA Grade Assessment: P1 A normal healthy patient. After ? rev iewing the risks and benefits, the patient was deemed in ? satisfactory condition to undergo the procedure. The ? ane sthesia plan was to use conscious sedation. Immediately ? ling or to administration of medications, the patient was ? re- assessed for adequacy to receive sedatives. The heart ? rat e, respiratory rate, oxygen saturations, blood pressure, ? nikkie quacy of pulmonary ventilation, and response to care were ? mon itored throughout the procedure. The physical status of ? the patient was re-assessed after t he procedure. ? Aft er obtaining informed consent, the endoscope was passed ? und er direct vision. Throughout the procedure, the patient's ? blo od pressure, pulse, and oxygen saturations were monitored ? con tinuously. The Gastrocope G-15-Q #[id number] was introduced ? through the [facility] , and advanced to the third part of ? duo denum. The upper GI endoscopy was accomplished without ? difficulty. The patient tolerated the procedure well. Findings: ?The Z-line was found thirty-nine cm f rom incisors. The ? cri copharyngeus, upper third of the esophagus, middle third ? of the esophagus, lower third of the esophagus and ? gas troesophageal junction were normal. Diffuse inflammation ? mela racterized by congestion (edema) and erythema was found ? in the gastric body. Diffuse inflammation characterized by ? con gestion (edema) and erythema was found in the gastric ? antrum. Biopsy with a c old forceps was performed for ? kin robiology. The cardia and gastric fundus were normal on ? ret roflexion. The duodenal bulb, 2nd part of the duodenum, ? are a of the papilla and 3rd part of the duodenum were normal. Impression: ?- Z-line thirty-nine cm. ? - N ormal cricopharyngeus, upper third of the esophagus, ? mid dle third of the esophagus, lower third of the esophagus ? and gastroesophageal junction. ? - Gastritis. ? - Gastritis. ? - N ormal duodenal bulb, 2nd part of the duodenum, area of ? the papilla and 3rd part of the duo denum. Recommend: ? - The patient was discharged to home (am bulatory). ? - Continue present medicines. ? - Patient should telephone endoscop ist in 1 week. ? - Return to primary care physician PRN. Judy Lucas M.D Duncan Lucas MD Signed Date: 06/28/2004 8:35:31 AM I was physically present for the entire viewing portion of t he exam. Note generated on 06/28/2004 8:09:09 AM Upper GI RADIOLOGY Endoscopy RESULTS Specimen (Source) Anatomical Collection Method Collection Time Re ceived Time Location / / Volume Laterality 06/28/2004 8:10 AM AERONAUTICAL PROJECT ENGINEER Duncan Lucas MD PROCEDURES Performing Organization Address City/State/ZIP Code Phon e Number RADIOLOGY RESULTS COLONOSCOPY (06/28/2004 7:10 AM AERONAUTICAL PROJECT ENGINEER) [facility] gist Method Time Signature COLONOSCOPY [facility] RADIOLOGY RESULTS Patient Name: Faith Adames ?Gender: M Exam Date: ?06/28/2004 07:10 AM Procedure: ? Colonoscopy Indications: ? Hematochezia Providers: ? Duncan Lucas MD Referring MD: ?Eladio Nielsen MD Medicines: ? Fentanyl 100 mcg IV, Midazolam 2 mg IV, Atropine 0.6 mg IV Complications: ?? No immediate complications Procedure: ? A History and Physical has been performe d, and patient ? med ication allergies have been reviewed. The patient's ? mirella erance of previous anesthesia has been reviewed. The ? ris ks and benefits of the procedure and the sedation options ? and risks were discussed with the patient. All questions ? wer e answered and informed consent was obtained. Mental ? Sta tus Examination: normal. Airway Examination: normal ? oropharyngeal airway and neck mobility. Respiratory ? Exa mination: clear to auscultation. CV Examination: normal. ? ASA Grade Assessment: P1 A normal healthy patient. After ? rev iewing the risks and benefits, the patient was deemed in ? satisfactory condition to undergo the procedure. The ? ane sthesia plan was to use conscious sedation. Immediately ? ling or to administration of medications, the patient was ? re- assessed for adequacy to receive sedatives. The heart ? rat e, respiratory rate, oxygen saturations, blood pressure, ? nikkie quacy of pulmonary ventilation, and response to care were ? mon itored throughout the procedure. The physical status of ? the patient was re-assessed after t he procedure. ? Aft er obtaining informed consent, the colonoscope was passed ? und er direct vision. Throughout the procedure, the patient's ? blo od pressure, pulse, and oxygen saturations were monitored ? con tinuously. The Colonoscope P-57 #[id number] was introduced ? thr ough the anus and advanced to the ileum. The patient ? tolerated the procedure well. The c olonoscopy was ? acc omplished without difficulty. The quality of the prep was ? excellent. Findings: ?The dig ital rectal exam was normal. Two sessile polyps with ? no bleeding were found in the ascending colon. The polyps ? wer e 2 mm in size. These were biopsied with a hot forceps ? for histology. Multiple small-mouthed diverticula were found ? in the sigmoid colon. The [Major Site] was normal. ? Non-bleeding internal hemorrhoids w ere found. The ? ret roflexed view of the anal verge was normal and showed no ? lorna or rectal abnormalities. The terminal ileum was normal. Impression: ?- Two 2 mm polyps in the ascending colon. Tissue was removed. ? - Diverticulosis. ? - The [site] is normal. ? - Internal hemorrhoids were found. ? - The terminal ileum is normal. Recommend: ? - The patient was discharged to home (am bulatory). ? - Continue present medicines. ? - Patient should telephone endoscop ist in 1 week. ? - I f polyps are adenomatous repeat colonoscopy in 3 years. ? If polyps are hyperplastic then hemoccults q yr and flex ? sigmoidoscopy in 3 yrs. ? - Return to primary care physician PRN. Judy Lucas M.D Duncan Lucas MD Signed Date: 06/28/2004 8:30:59 AM I was physically present for the entire viewing portion of t he exam. Note generated on 06/28/2004 7:09:18 AM COLONOSCOPY RADIOLOGY RESULTS Specimen (Source) Anatomical Collection Method Collection Time Re ceived Time Location / / Volume Laterality 06/28/2004 7:10 AM AERONAUTICAL PROJECT ENGINEER Duncan Lucas MD PROCEDURES Performing Organization Address City/State/ZIP Code Phon e Number RADIOLOGY RESULTS documented in this encounter Visit Diagnoses Not on filedocumented in this encounter
--- OUTSIDE RECORDS SUMMARY | 2022-01-01 11:50 | XMS_ITS | Encounter Summary ---
:1945 Author Organization [facility] Address [address] [place] [address] Care Team Providers Name Role Phone Eladio Nielsen Primary Care Provider Unavailable Benjamin Henao MD Unavailable Benjamin Henao MD Primary Care Provider Encounter Details Date Type Department Care Team Description 08/27/2013 Records - [facility] Brian Nielsen [address] [address] [facility] [phone] Social History Tobacco Use Types Packs/Day Years Used Date Former Smoker Quit: 08/27/18 90 Alcohol Use Standard Drinks/Week Comments Yes 0 (1 standard drink = 0.6 oz pure alcoho l) Sex Assigned at Date Recorded Not on file documented as of this encounter Plan of Treatment Not on filedocumented as of this encounter Procedures Procedure Name Priority Date/Time Associated Comments Diagnosis LDL CHOLESTEROL Routine 08/27/2013 10:17 Results for this DIRECT AM CDT procedure are i n the results section. HEMOGLOBIN A1C Routine 08/27/2013 10:17 Results f or this AM CDT procedure are i n the results section. documented in this encounter Results (ABNORMAL) Hemoglobin A1c (08/27/2013 10:17 AM CDT) [facility] Hem[facility] A1C 7.3 (H) 3.5 - 6.0 08/27/2013 [facility] 10:17 AM CDT [facility] Specimen Anatomical Collection Method Collection Time Receive d Time (Source) Location / / Volume Laterality 08/27/2013 10:17 08/27/2013 AM CDT 10:17 AM CDT Eladio Nielsen LAB - BLOOD ORDERABLES Performing Organization Address City/[facility]/ZIP Code Phon e Number [id number] [place] [address] [address] [facility] [address] [place], [place] [address] CLINIC LABORATORY LDL cholesterol direct (08/27/2013 10:17 AM CDT) P athologist Signature LDL Cholesterol 77 <130 mg/dL 08/27/2013 [facility] 10:17 AM CDT [facility] Specimen Anatomical Collection Method Collection Time Receive d Time (Source) Location / / Volume Laterality 08/27/2013 10:17 08/27/2013 AM CDT 10:17 AM CDT Eladio Nielsen LAB - BLOOD ORDERABLES Performing Organization Address City/[facility] Phon [place] [address] [address] [facility] documented in this encounter Visit Diagnoses Not on filedocumented in this encounter Care Teams Registered Dental Assistant Relationship Specialty Start Date End Date Eladio Nielsen PCP - General 08/14/11 07/23/16 Benjamin Henao MD PCP - General Internal Medicine 07/24/[address] [place] [address] Benjamin Henao MD Assigned PCP 10/05/[address] [place] [address] documented as of this encounter
--- OUTSIDE RECORDS SUMMARY | 2022-01-01 11:50 | XMS_ITS | Encounter Summary ---
:1945 Author Organization [facility] Address [address] [place] [address] Care Team Providers Name Role Phone Eladio Nielsen Primary Care Provider Unavailable Benjamin Henao MD Unavailable Benjamin Henao MD Primary Care Provider Encounter Details Date Type Department Care Team Description 08/29/2011 Records - [facility] CONVERSION Provider, Histor ical Social History Tobacco Use Types Packs/Day Years Used Date Former Smoker Quit: 08/27/18 90 Alcohol Use Standard Drinks/Week Comments Yes 0 (1 standard drink = 0.6 oz pure alcoho l) Sex Assigned at Date Recorded Not on file documented as of this encounter Plan of Treatment Not on filedocumented as of this encounter Procedures Procedure Name Priority Date/Time Associated Diagnosis Comme nts COLONOSCOPY Routine 08/29/2011 12:00 AM CDT documented in this encounter Results COLONOSCOPY (08/29/2011 12:00 AM CDT) Specimen (Source) Anatomical Location Collection Method / Collectio n Time Received Time / Laterality Volume 08/29/2011 Historical Provider PROCEDURES documented in this encounter Visit Diagnoses Not on filedocumented in this encounter Care Teams Sponge Hooker Relationship Specialty Start Date End Date Eladio Nielsen PCP - General 08/14/11 07/23/16 Benjamin Henao MD PCP - General Internal Medicine 07/24/16 [address] [place] [address] Benjamin Henao MD Assigned PCP 10/05/20 [address] [place] [address] documented as of this encounter
--- OUTSIDE RECORDS SUMMARY | 2022-01-01 11:50 | XMS_ITS | Encounter Summary ---
:1945 Author Organization [facility] Address [address] [place] [address] Care Team Providers Name Role Phone Unavailable Primary Care Provider Unavailable Encounter Details Date Type Department Care Team Description 06/28/2004 Historic Results INTERFACED REPORT Lainey Porter [place] [address] (Wo rk) Social History Tobacco Use Types Packs/Day Years Used Date Never Assessed Sex Assigned at Date Recorded Not on file documented as of this encounter Plan of Treatment Not on filedocumented as of this encounter Procedures Procedure Name Priority Date/Time Associated Diagnosis Comme nts HISTOPATHOLOGY Routine 06/28/2004 12:00 AM Result s for this METER MAINTENANCE PERSON procedure are i n the results section . documented in this encounter Results Histopathology (06/28/2004 12:00 AM METER MAINTENANCE PERSON) Component Value Ref Test Analysis Performed At [facility] Range Method Time Signature Copath Report CASE: [id number] ^ [facility] MR#: [id number] Patient Name: FAITH ADAMES Collected: 06/28/2004 Received: 06/28/2004 Reported: 06/29/2004 16:46 Ordering Phy(s): LAINEY PORTER Additional Phy(s): FAITH Daniel ADAMES SPECIMEN(S): A: Colon polyp, ascending B: Gastric antrum biopsy for helicobacter FINAL DIAGNOSIS: A. ?Colon, ascending, biopsies-- 1. ?Tubular adenoma (one). 2. ?Acute inflammation (see description). B. ?Stomach, antrum, biopsy-- 1. Probable foveolar hyperplasia. 2. ?Sparse chronic inflammation and congestion of the lamina propria, suggestive of chemical/reactive gastropathy. 3. ?No evidence of active inflammat ion, intestinal metaplasia or malignancy. 4. ?Negative for Helicobacter-like organisms. COMMENT: Endoscopy and colonoscopy reports were reviewed. Electronically signed out by: Tru Fox M.D. CLINICAL HISTORY: Rectal bleeding. ??GERD. GROSS: A. ?The specimen, labeled polyps x2 asce nding colon, consists of two fragments of joshi to hemorrhagic soft tissue measuring 0.2 cm in diameter each. ??The specimen is submitted in its entirety. B. ?The specimen, labeled biopsy gastric antru m, rule out H. pylori, consists of two fragments of joshi to pink soft tissu e measuring 0.2 cm in diameter each. ??The specimen is submitted in its entirety. Warthin-Starry stain is ordered. ??MGP/kd MICROSCOPIC: A. ?Serial sections of the specimen show two fr agments of colonic mucosa. ??One shows a tubular adenoma. ??The other f ragment is without evidence of adenoma or hyperplastic change. ??Both f ragments of colonic mucosa show acute inflammation in the form of infilt ration of lamina propria, cryptitis and crypt abscess. ??In the fragme nt with adenoma, the inflammatory infiltrates are confined to the ad enoma. ??The significance of this finding is uncertain and correlation wi th clinical and endoscopic findings is recommended. ??Thereis no evidenc e of malignancy. B. ?Serial sections of the specimen show small fragments of gastric antral and transitional mucosa. ??One fragment is ma de primarily of foveolar epithelium. This may represents foveolar hyperpl anjana or an artifact of sampling and/or tangential sectioning. ??The fov eolar epithelium is without abnormalities. ??There is no evidence of erosions. The lamina propria shows congestion, a few fascicles of smoo th muscle cells and sparse chronic inflammation. ??No active inflammat ion, intestinal metaplasia or malignancy are present. ??No Helico bacter-like organisms are identified with H and E and Warthin-Starry sta ins. ??The findings may correspond to chemical/reactive gastropathy. MGP/kd DT/06-29-04 Specimen (Source) Anatomical Collection Method Collection Time Re ceived Time Location / / Volume Laterality 06/28/2004 06/29/2004 4:46 PM METER MAINTENANCE PERSON Lainey Porter MD LAB - [facility] SPECIAL DIAG OR DERABLES Performing Organization Address City/State/ZIP Code Phon e Number [facility] documented in this encounter Visit Diagnoses Not on filedocumented in this encounter
--- OUTSIDE RECORDS SUMMARY | 2022-01-01 11:50 | XMS_ITS | Encounter Summary ---
:1945 Author Organization [facility] Address [address] [place] [address] Care Team Providers Name Role Phone Unavailable Primary Care Provider Unavailable Encounter Details Date Type Department Care Team Description 08/13/2007 Historic Results INTERFACED REPORT Lainey Porter [place] [address] (Wo rk) Social History Tobacco Use Types Packs/Day Years Used Date Never Assessed Sex Assigned at Date Recorded Not on file documented as of this encounter Plan of Treatment Not on filedocumented as of this encounter Procedures Procedure Name Priority Date/Time Associated Diagnosis Comme nts HISTOPATHOLOGY Routine 08/13/2007 12:00 AM Result s for this CDT procedure are i n the results section . documented in this encounter Results Histopathology (08/13/2007 12:00 AM CDT) Component Value Ref Test Analysis Performed Pathologis t Range Method Time At Signature Copath CASE: [id number] ^ [facility] Report Patient Name: FAITH ADAMES MR#: [id number] Specimen #: [id number] Collected: 08/13/2007 Received: 08/13/2007 Reported: 08/14/2007 13:25 Ordering Phy(s): LAINEY PORTER Additional Phy(s): JIM MENCHACA SPECIMEN(S): Colon polyp, descending FINAL DIAGNOSIS: Colon, descending, biopsy - 1. ?Inflammatory polyp. 2. ? No evidence of viral inclusions, parasites, adenoma or malignancy. COMMENT: Colonoscopy report was reviewed. Electronicallysigned out by: Tru Fox M.D. CLINICAL HISTORY: History of polyps. ??History of GERD. GROSS: The specimen, labeled biopsy one polyp descending colon, c onsists of two fragments of joshi to hemorrhagic soft tissue measuring 0. 3 cm in diameter each. ??The specimen is submitted in its entirety. ??MGP/kd MICROSCOPIC: Sections show two fragments of colonic mucosa. ??One fragmen t has a polypoid configuration and is made of granulation tissue. ?? The surface is ulcerated and the underlying stromal cells show nuclear e nlargement and hyperchromasia. ?? There is a fragment of viable colonic mucosa without evidence of adenoma or malignancy. ??The polyp will be classified as inflammatory. ??No viral inclusions or parasites are iden tified. MGP/kd 08-14-07 TESTING LAB LOCATION: [address] ??[id number] COLLECTION SITE: Client: [facility] Location: ENDO (R) Specimen (Source) Anatomical Collection Method Collection Time Re ceived Time Location / / Volume Laterality 08/13/2007 08/14/2007 1:25 PM CDT Lainey Porter MD LAB - [facility] SPECIAL DIAG OR DERABLES Performing Organization Address City/State/ZIP Code Phon e Number [facility] documented in this encounter Visit Diagnoses Not on filedocumented in this encounter
--- OUTSIDE RECORDS SUMMARY | 2022-01-01 11:50 | XMS_ITS | Encounter Summary ---
:1945 Author Organization [facility] Address [address] [place] [address] Care Team Providers Name Role Phone Unavailable Primary Care Provider Unavailable Encounter Details Date Type Department Care Team Description 08/13/2007 GI Procedure [facility] Faith Adames, N one Endoscopy [place] [facility] [address] [place] NO INFO FOUND [place] [phone] [place] [phone] [place] [address] Social History Tobacco Use Types Packs/Day Years Used Date Never Assessed Sex Assigned at Date Recorded Not on file documented as of this encounter Plan of Treatment Not on filedocumented as of this encounter Procedures Procedure Name Priority Date/Time Associated Diagnosis Comme nts UPPER GI ENDOSCOPY Routine 08/13/2007 8:25 AM Res ults for this CDT procedure are i n the results section. COLONOSCOPY Routine 08/13/2007 7:00 AM Results f or this CDT procedure are i n the results section. documented in this encounter Results UPPER GI ENDOSCOPY (08/13/2007 8:25 AM CDT) Component Value Ref Test Analysis Performed At [facility] Method Time Signature Upper GI Endoscopy RADIOLOGY Endoscopy RESULTS Patient Name: Faith sharma ? Gender: M ? Procedure Date: 08/13/2007 8: 25 AM ? Date of : 1945 ?Age: 61 ? Admit Type: Outpatient ? Attending MD: Duncan Lucas MD ? Procedure: ? Upper GI endoscopy Indications: ? Dys phagia, Established gastro-esophageal reflux disease Providers: ? Duncan Lucas MD Referring MD: ?Faith Adames MD, Eladio diane MD Medicines: ? Midazolam 4 mg IV, Benzocaine spra y Complications: ? No immediate complications Procedure: ? - Prior to the procedure, a History and Physical was ? performed, and patient medication allergies were ? reviewed. The patient is competent. The risks and ? benefits of the procedure and the sedation options and ? risks were discussed with the patient. All questions ? were answered and informed consent was obtained. Patient ? identification and proposed procedure were verified by ? the physician in the procedure room. Mental Status ? Examination: alert and oriented. Airway Examination: ? normal oropharyng eal airway and neck mobility. ? Respiratory Examination: clear to auscultation. CV ? Examination: normal. ASA Grade Assessment: I - A normal, ? healthy patient. After reviewing the risks and benefits, ? the patient was deemed in satisfactory condition to ? undergo the procedure. The anesthesia plan was to use ? moderate sedation / analgesia (conscious sedation). ? Immediately prior to administration of medications, the ? patient w as re-assessed for adequacy to receive ? sedatives. The heart rate, respiratory rate, oxygen ? saturations, blood pressure, adequacy of pulmonary ? ventilation, and response to care were monitored ? throughout the procedure. The physical status of the ? patient was re-assessed aft er the procedure. ? After obtaining informed consent, the endoscope was ? passed under direct vision. Throughout the procedure, ? the patie nt's blood pressure, pulse, and oxygen ? saturations were monitored continuously. The ? [id number] was introduced through the mouth, and ? advanced to the second part of duodenum. The upper GI ? endoscopy was accomplished without difficulty. The ? patient tolerated the procedu re well. ? Findings: ? The Z-line was regula r and was found 40 cm from the incisors. LA Grade A ? (one or more mucosal breaks less than 5 m m, not extending between tops ? of 2 mucosal folds) esophagitis with non- bleeding was found 40 cm from ? the incisors. Diffuse moderately erythematous m ucosa with no bleeding ? was found in the entire examined stomach. The cardia and gastric fundus ? were normal on retroflexion. The duodenal bulb and 2n d part of the ? duodenum were normal. ? Impression: ?- Z-line regular, 40 cm from the i ncisors. ? - LA Grade A reflux esophagit is. ? - Gastric mucosal abnormality characterized by erythema. ? - Normal duodenal bulb and 2nd part of the duodenum. ? - I suspect his dysphagia is secondary to esophageal ? irritability and should respond to daily PPI Rx. Recommendation: ?- Discharge patient to home (ambulat ory). ? - Continue present medicines. ? - Patient should telephone endoscopist in 1 week. ? - Return to primary care phys ician PRN. ? R Shayy MKevinD Duncan Lucas MD Signed Date: 08/13/2007 8:53 AM Number of Addenda: 0 I was physically present for the entire viewing portion of t he exam. Note initiated on 08/13/2007 8:25 AM Upper GI RADIOLOGY Endoscopy RESULTS Specimen (Source) Anatomical Collection Method Collection Time Re ceived Time Location / / Volume Laterality 08/13/2007 8:25 AM CDT Faith Adames MD PROCEDURES Performing Organization Address City/State/ZIP Code Phon e Number RADIOLOGY RESULTS COLONOSCOPY (08/13/2007 7:00 AM CDT) [facility] gist Method Time Signature COLONOSCOPY Endoscopy RADIOLOGY RESULTS Patient Name: Faith sharma ? Gender: M ? Procedure Date: 08/13/2007 7: 00 AM ? Date of : 1945 ?Age: 61 ? Admit Type: Outpatient ? Attending MD: Duncan Lucas MD ? Procedure: ? Colonoscopy Indications: ? Personal history of colonic polyps Providers: ? Duncan Lucas MD Referring MD: ?Eladio Nielsen MD, Faith cloud MD Medicines: ? Fe ntanyl 100 micrograms IV, Midazolam 2 mg IV, Atropine ? 0.6 mg IV Complications: ? No immediate complications Procedure: ? - Prior to the procedure, a History and Physical was ? performed, and patient medication allergies were ? reviewed. The patient is competent. The risks and ? benefits of the procedure and the sedation options and ? risks were discussed with the patient. All questions ? were answered and informed consent was obtained. Patient ? identification and proposed procedure were verified by ? the physician in the procedure room. Mental Status ? Examination: alert and oriented. Airway Examination: ? normal oropharyng eal airway and neck mobility. ? Respiratory Examination: clear to auscultation. CV ? Examination: normal. ASA Grade Assessment: I - A normal, ? healthy patient. After reviewing the risks and benefits, ? the patient was deemed in satisfactory condition to ? undergo the procedure. The anesthesia plan was to use ? moderate sedation / analgesia (conscious sedation). ? Immediately prior to administration of medications, the ? patient w as re-assessed for adequacy to receive ? sedatives. The heart rate, respiratory rate, oxygen ? saturations, blood pressure, adequacy of pulmonary ? ventilation, and response to care were monitored ? throughout the procedure. The physical status of the ? patient was re-assessed aft er the procedure. ? After obtaining informed consent, the colonoscope was ? passed under direct vision. Throughout the procedure, ? the patie nt's blood pressure, pulse, and oxygen ? saturations were monitored continuously. The [id number] ? #[id number] was introduced through the anus and advanced to ? the ileum. The colonoscopy was performed without ? difficulty. The patient tolerated the procedure well. ? The quality of the prep was e xcellent. ? Findings: ? The digital rectal exam was normal. A peduncula ofelia polyp was found in ? the descending colon. The polyp w as 3 mm in size. The polyp was removed ? with a hot snare. Resection and retrieval were comple te. Multiple ? small-mouthed diverticula were found in the sigmoid c olon. Multiple ? venous lakes wre seen in splenic flexureand transverse colon.The rectum, ? sigmoid colon, hepatic flexure, a scending colon, cecum, ileocecal valve ? and ileum appeared no rmal. Internal, non-bleeding, mild hemorrhoids were ? found during retroflexion. The retroflexed view of the anal verge was ? normal and showed no anal or rectal abnormaliti es. The terminal ileum ? appeared normal. ? Impression: ?- A 3 mm polyp in the descending colon. Resected and ? retrieved. ? - Diverticulosis sigmoid colo n. ? - The rectum, sigmoid colon, hepatic flexure, ascending ? colon, cecum, ileocecal valve and terminal ileum are ? normal. ? - Internal, non bleeding, mild hemorrhoids were found. ? - The terminal ileum is sedrick l. Recommendation: ?- Discharge patient to home (ambulat ory). ? - Patient should telephone endoscopist in 1 week. ? - If polyp is adenomatous repeat colonoscopy in 3 years. ? If polyp is hyperplastic repeat colonoscopy in 4 years. ? - Return to primary care phys ician PRN. ? R Shayy Teague Duncan Lucas MD Signed Date: 08/13/2007 8:47 AM Number of Addenda: 0 I was physically present for the entire viewing portion of t he exam. Note initiated on 08/13/2007 7:02 AM COLONOSCOPY RADIOLOGY RESULTS Specimen (Source) Anatomical Collection Method Collection Time Re ceived Time Location / / Volume Laterality 08/13/2007 7:00 AM CDT Faith Adames MD PROCEDURES Performing Organization Address City/State/ZIP Code Phon e Number RADIOLOGY RESULTS documented in this encounter Visit Diagnoses Not on filedocumented in this encounter
--- OUTSIDE RECORDS SUMMARY | 2022-01-01 11:50 | XMS_ITS | Encounter Summary ---
:1945 Author Organization [facility] Address [address] [place] [address] Care Team Providers Name Role Phone Eladio Nielsen Primary Care Provider Unavailable Reason for Visit Auth/Cert - Closed Specialty Diagnoses / Procedures Referred By Contact Refer red To Contact Gastroenterology Diagnoses Polyp History Rh Endoscopy Procedures COLONOSCOPY [address] [place] [address] Phone: Fax: Referral ID Status Reason Start Date Expiration Date Visits Requ ested Visits Authorized [id number] Closed 08/14/2011 02/10/2012 1 1 Encounter Details Date Type Department Care Team Description 08/29/2011 Hospital Encounter [facility] Goran Lucas MD Endoscopy [place] [address] [facility] [place] [address] [place], [place] [phone] (Wo rk) [id number] [phone] Social History Tobacco Use Types Packs/Day Years [...] the consulting provider. Signed Electronically by: Duncan Luacs August 29, 2011 . documented in this [...] encounter Results COLONOSCOPY (08/29/2011 1:31 PM CDT) [facility] Method Time Signature COLONOSCOPY [facility] RAD IOLOGY RESULTS Patient Name: Faith sharma ? Procedure Date: 08/29/2011 1:31:11 PM ? Date of : 1945 ?Admit Type: Outpatient ? Age: 65 ? Gender: Male ? Attending MD: Duncan Rubio MD ? Procedure: ?Colonoscopy Indications: ?Personal history of colonic polyps Providers: ?Duncan Lucas MD Referring : ? Eladio Nielsen MD, Faith Adames MD [...] to primary care physician PRN. ? Judy Lucas M.D Duncan Lucas MD Signed Date: 08/29/2011 [...] Diagnoses Not on filedocumented in this encounter Active and Recently Administered [...] Provider: Duncan Lucas MD) PRN, anxiety, Starting 08/29/11 at 1405, Intra-procedure documented in this encounter Care Teams Breading Machine Tender Relationship Specialty Start Date End Date Eladio Nielsen PCP - General 08/14/11 07/23/16 documented as of this encounter
--- OUTSIDE RECORDS SUMMARY | 2022-01-01 11:51 | XMS_ITS | Clinical Summary ---
:1945 Author Organization [facility] [place] [address] Care Team Providers Name Role Phone Avery Waldrop MD Unavailable Unavailable Ai Clarke MD Primary Care Provider Allergies Active Allergy Reactions Severity Noted Date Comments Cat Dander *Unknown 09/28/2016 Lisinopril Cough Low 10/28/2009 Medications Medication Sig Dispensed Refills Start Date End Date Status aspirin 81 mg tablet Take 81 mg by 0 Active mouth once daily with a meal. losartan (COZAAR) 50 Take 1 tablet by 0 04/28/2015 Active mg tablet mouth once daily. multivitamin capsule Take 1 capsule 0 2017 Active by mouth once daily. cyanocobalamin Place 1 tablet 0 2017 Active (VITAMIN B-12) 1,000 under the tongue mcg subl once daily. Calcium Take 1 tablet by 0 2017 Ac tive Citrate-Vitamin D3 500 mouth once mg calcium -400 unit daily. chew atorvastatin (LIPITOR) Take 20 mg by 0 10/22/2018 Active 20 mg tablet mouth at bedtime. cholecalciferol, Take by mouth 0 Active Vitamin D3, 5,000 unit once daily. tab tablet doxepin (SINEQUAN) 10 Take 1 Capsule 90 capsule. 0 03/14/2021 Active mg capsuleIndications: (10 mg) by mouth Insomnia, unspecified at bedtime. type potassium citrate Take 1 Tablet 90 Tablet 11 05/09/2021 Active (UROCIT-K) 10 mEq (10 mEq) by (1,080 mg) mouth 3 times tabletIndications: daily with Kidney stones meals. CPAPIndications: BERNADETTE CPAP machine for 1 Each 11 08/24/2021 Active (obstructive sleep home use at apnea) pressure 10-20 cm, nasal mask x1/3month with nasal cushion x2/mo. Length of Need: 99 months; Frequency of use: Daily traZODone (DESYREL) Take 1 Tablet 30 tablet. 5 10/25/2021 Active 100 mg (100 mg) by tabletIndications: mouth at Insomnia, unspecified bedtime. type Active Problems Problem Noted Date Pneumonia 05/19/2014 BERNADETTE (obstructive sleep apnea) 03/17/2014 Obesity 03/17/2014 Abnormal echocardiogram 01/13/2013 CAD (coronary artery disease) 09/04/2012 Abnormal EKG 09/04/2012 Dyspnea 09/04/2012 Encounters Date Type Specialty Care Team Description 11/24/2021 Telephone Monroe Ruelas MD 11/21/2021 Hospital Encounter Monroe Ruelas Elevated PSA MD [facility] 11/21/2021 Travel 11/01/2021 Telephone Monroe Ruelas Results MD [facility] 10/24/2021 Refill [facility] Refill Req uest (Trazodone) M, DO 10/19/2021 Orders Only Lab, [facility] 10/19/2021 Travel from Last 3 Months Immunizations Name Administration Dates Next Due Pneumococcal conj 13-Valent (Prevnar 13) 05/19/2014 Social History Tobacco Use Types Packs/Day Years Used Date Former Smoker Cigarettes 1.5 30 Quit: 04/22/18 90 Smokeless Tobacco: Never Used Tobacco Cessation: Counseling Given: Yes Comments: Quit smoking in 1990 Alcohol Use Standard Drinks/Week Comments Yes 0 (1 standard drink = 0.6 oz pure alcoho l) monthly or less Alcohol Habits Answer Date Recorded How often do you have a drink containing alcohol? Not asked How many drinks containing alcohol do you have on a Not aske d typical day when you are drinking? How often do you have six or more drinks on one Not asked occasion? Comment: monthly or less 03/06/2021 Sex Assigned at Date Recorded Not on file Obstetrics History Last Filed Vital Signs Vital Sign Reading Time Taken Comments Blood Pressure 151/85 08/14/2021 11:39 AM CDT Pulse 83 08/14/2021 11:39 AM CDT Temperature 36.5 ??C (97.7 ??F) 02/14/2021 9:45 AM CDT Respiratory Rate 16 03/06/2021 3:17 PM GREEN FEED ATTENDANT Oxygen Saturation 99% 08/14/2021 11:39 AM CDT Inhaled Oxygen Concentration - - Weight 105.9 kg (233 lb 6.4 oz) 08/14/2021 11:39 AM CDT Height 172.7 cm (5' 8) 02/14/2021 6:00 AM CDT Body Mass Index 35.49 02/14/2021 6:00 AM CDT Plan of Treatment Upcoming Encounters Date Type Specialty Care Team Description 01/23/2022 Ancillary Procedure Health Maintenance Due Date Last Done Comments Tdap 1956 Depression screening for age 12+ 1957 Hepatitis C screening for age 0509/18/1963 18-79 Tetanus booster 1965 Zoster (shingles) series for age 0509/18/1995 50+ (1 of 2) Medicare Wellness for age 65+ 2010 Pneumococcal series for age 65+ (2 05/19/2015 05/19/2014 - PPSV23 or PCV20) BMI (ht and wt on same day) for 11/11/2019 11/10/2018, 12/21, age 18+ 2017, Additional history exists COVID-19 vaccine series (2 - 02/14/2021 01/24/2021 Pfizer series) Influenza for age 65+ 12/21/2021 Procedures Procedure Name Priority Date/Time Associated Diagnosis Comme nts MR PELVIS PROSTATE Routine 11/21/2021 2:54 PM Elevated PSA Res ults for this WWO CDT procedure are i n the results section. PSA TOTAL Routine 10/19/2021 11:10 AM Elevated PSA Results for this (DIAGNOSTIC) CDT procedure are i n the results section. from Last 3 Months Results MR PELVIS PROSTATE WWO (11/21/2021 2:54 PM CDT) Anatomical Region Laterality Modality Pelvis Magnetic Resonance Specimen (Source) Anatomical Collection Method Collection Time Re ceived Time Location / / Volume Laterality 11/22/2021 1:42 PM CDT Impressions 11/22/2021 1:42 PM CDT 1. No suspicious lesions identified in the prostate gland. REFERENCE: PI-RADS Prostate Imaging - Reporting and Data System 2015 version 2. ??ACR, the [employer]. Dictated by Lb Luis MD @ 11/22/2021 1 :42:01 PM (Electronically Signed) Narrative 11/22/2021 1:42 PM CDT For Patients: ??As a result of the Cures Act, medical imaging exams and procedure report s are released immediately into your mer [facility]tronic medical record. ??You may view this report before your referring provider. ??If you have questions, please contact your health care provider. CLINICAL INDICATION: Elevated PSA. TECHNIQUE: MRI of the prostate on a 3T machine with T1, T2, diffusion-weighted and dynamic post-contrast images obtained. HypejarD post-processing software was use d for image analysis. ?? COMPARISON: None. FINDINGS: The prostate midline length = 6.8 cm, wi dth at base = 4.7 cm, mid = 5.7 cm, apex = 4.5 cm. Estimated volume = 94 cc. No suspicious lesions identified in the prostate gland. No stephanie-prostatic or pelvic side wall ly mph nodes. No other bony or soft tissue abnormaliti es identified. Procedure Note Lb Luis MD - 11/22/2021Forma tting of this note might be different from the original. For Patients: As a result of the Cures Act, medical imaging exams and procedure reports are released immediately into your electronic medical record. You may view this report before your referring provider. If you have questions, please contact yo ur health care provider. CLINICAL INDICATION: Elevated PSA. TECHNIQUE: MRI of the prostate on a 3T machine with T1, T2, diffusion-weighted and dynamic post-contrast images obtained. PLASTIQaCAD post-processing software was use d for image analysis. COMPARISON: None. FINDINGS: The prostate midline length = 6.8 cm, wi dth at base = 4.7 cm, mid = 5.7 cm, apex = 4.5 cm. Estimated volume = 94 cc. No suspicious lesions identified in the prostate gland. No stephanie-prostatic or pelvic side wall ly mph nodes. No other bony or soft tissue abnormaliti es identified. IMPRESSION: 1. No suspicious lesions identified in t he prostate gland. REFERENCE: PI-RADS Prostate Imaging - Reporting and Data System 2015 version 2. ACR, the [employer]. Dictated by Lb Luis MD @ 11/22/2021 1 :42:01 PM (Electronically Signed) Monroe Ruelas MD MR (ABNORMAL) PSA TOTAL (DIAGNOSTIC) (10/19/2021 11:10 AM CDT) Analysis Performed At Patho logist Time Signature PSA TOTAL 7.34 (H) <4.00 10/19/2021 [facility] (DIAGNOSTIC) ng/mL 7:04 PM CDT [facility] Specimen Anatomical Collection Method / Collection Time Recei nona Time (Source) Location / Volume Laterality Blood BLOOD SPECIMEN / Venipuncture / 10/19/2021 11:10 10/19 Unknown Unknown AM CDT 11:10 AM CDT Narrative [facility] - 10/19/2021 7:04 PM CDT The percentage of Free PSA can be used to enhance the differentiation of prostate cancer from benign prostatic disease in subjects whose PSA levels are between 4.00 and 10.00 ng/mL. The % Free PSA will be reported only for PSA values between 4.00 and 10.00 ng/mL. The [employer] PSA assay is a Chem iluminescent Microparticle Immunoassay(CMIA). Assay values obtained with different assay methods cannot be used interchangeably due to differences in assay method s and reagent specificity. ? Monroe Ruelas MD CHEMISTRY Performing Organization Address City/State/ZIP Code Phon e Number [facility] [address] [place] [address] [facility] from Last 3 Months Insurance Payer Benefit Plan / Subscriber ID Effective Dates Phone Addre ss Type Group MEDICARE PART A MEDICARE PART A [id number] 2010-Present ATTN: CLAIMS - HB USE ONLY HB ONLY [address] [place] [address] [employer] MEDICARE [id number] 2019-Present [address] [place] [address] Advance Directives Latest Code Status on File Code Status Date Activated Date Inactivated Comments Full Code 02/14/2021 5:51 AM 02/14/2021 12:52 PM Code Status Discussion: Not Discussed Care Teams Cashier And Waiter/Waitress Relationship Specialty Start Date End Date Ai Clarke, PCP - General Internal Medicine 02/02/[address] [place] [id number] Avery Waldrop, Consulting Physician Cardiovascular Disease 11/22 05/06
[2022-01-01 15:36] LABS: Albumin* 3.7 g/dL (3.3-5.0); Chloride* 101 mmol/L (96-114)
[2022-01-01 15:37] LABS: Potassium* 4.4 mmol/L (3.6-5.1); Sodium* 135 mmol/L (135-149)
[2022-01-01 15:39] LABS: Aspartate Amino Transferase* 27 U/L (12-35); Bilirubin Total* 0.7 mg/dL (0.1-1.5); Blood Urea Nitrogen* 19 mg/dL (7-30); Carbon Dioxide* 24 mmol/L (20-32); Creatinine* 1.2 mg/dL (0.5-1.5); Estimated Glomerular Filt Rate 63 ml/min; Total Protein* 6.5 g/dL (6.0-8.3)
[2022-01-01 15:40] LABS: Alanine Aminotransferase* 20 U/L (4-50); Alkaline Phosphatase* 147 U/L (40-150); Calcium* 9.4 mg/dL (8.4-10.6); Glucose* 133 mg/dL (60-115); Magnesium* 1.7 mg/dL (1.5-2.6)
[2022-01-01 15:44] LABS: Creatinine Urine 28.6 mg/dL
[2022-01-01 15:49] LABS: Microalbumin Creatinine Ratio 30 mg/g (0-30); Microalbumin Urine 1 mg/dL
[2022-01-01 16:00] LABS: PSA Screen* 6.29 ng/mL (0.10-4.00)
[2022-01-01 16:03] LABS: Ferritin* 38.8 ng/mL (17.9-464.0)
[2022-01-01 16:19] LABS: Vitamin B12* 920 pg/mL (243-894)
[2022-01-01 18:45] LABS: Cholesterol* 135 mg/dL (90-199); Triglycerides* 115 mg/dL (40-149)
[2022-01-01 18:46] LABS: HDL Cholesterol* 61 mg/dL (>=40); LDL Cholesterol Calculated 51 mg/dL (<100)
[2022-01-03 05:06] LABS: Folate, RBC 986 ng/mL (>=366)
[2022-01-03 08:24] LABS: Copper, Serum/Plasma 110.8 ug/dL (70.0-140.0); Zinc, Serum/Plasma 68.4 ug/dL (60.0-120.0)
[2022-01-04 12:16] LABS: Vitamin K1 0.42 nmol/L (0.22-4.88)
[2022-01-04 13:31] LABS: Vitamin A (Retinol) 0.41 mg/L (0.30-1.20)
[2022-01-04 13:47] LABS: Vitamin D 25 Hydroxy* 38 ng/mL (30-80)
== END 2022-01-01 12:47 | disposition home or self-care (01) ==
PROVIDERS: PCP Internal Medicine; Visit Provider Internal Medicine
DX: E11.9 Type 2 diabetes mellitus without complications (principal); I10 Essential (primary) hypertension; E78.5 Hyperlipidemia, unspecified; E66.9 Obesity, unspecified; Z12.5 Encounter for screening for malignant neoplasm of prostate
CPT/HCPCS: 80053; 80061; 82043; 82306; 82525; 82570; 82607; 82728; 82747; 83735; 84153; 84443; 84446; 84590; 84597; 84630

== ENCOUNTER 2022-03-05 06:43 | Observation (INO) | payer MEDICARE, SELFPAY ==
[2022-03-05] VITALS (34 sets, daily range): BP systolic 103–144; BP diastolic 70–97; PULSE 71–100; RESP 16–20; TEMP 36.8–36.9; O2SAT 96–100; BMI 31.2; BMI 30.5
--- NOTE | 2022-03-05 07:34 | CRLHL7_ITS ---
For Patients: As a result of the Century Cures Act, medical imaging exams and procedure reports are released immediately into your electronic medical record. You may view this report before your referring provider. If you have questions, please contact your health care provider. INDICATION: GI bleed. History of gastric bypass. COMPARISON: August 17, 2021 TECHNIQUE: CT examination of the abdomen and pelvis was performed following the uneventful intravenous administration of 95 cc of Isovue 370.. Thin section axial images were obtained from the lung bases through the pubic symphysis. Oral contrast was not administered. TECHNICAL NOTE: The study was performed as a single phase study. The examination was not performed as a triple phase GI bleeding protocol study Please note that all CT scans at this facility use dose modulation, iterative reconstruction, and/or weight-based dosing when appropriate to reduce radiation dose to as low as reasonably achievable. FINDINGS: LUNG BASES: Linear opacities at the lung bases likely related to atelectasis. Moderate to large hiatal hernia.Heart size normal and the lung bases. LIVER/BILIARY SYSTEM:The liver is normal in size and configuration. There is no focal mass and there is no intra- or extra hepatic biliary ductal dilatation.Distended but otherwise unremarkable appearing gallbladder. ADRENALS: Normal KIDNEYS, URETERS and BLADDER:The kidneys appear normal. No visible mass, calculus or hydronephrosis. The ureters and bladder as visualized appear normal. SPLEEN:Absent PANCREAS: Pancreas is not visualized. This is usually due to profound fatty infiltration RETROPERITONEUM and MESENTERY: There is no mass, adenopathy or aortic aneurysm. Atherosclerotic vascular calcifications GASTROINTESTINAL SYSTEM: There are findings of a gastric bypass. Marked edema and wall thickening of all of the components of the gastric bypass at and proximal to the stomach. No definite mechanical obstruction. Findings are probably due to a significant gastritis pattern. There is no free air or intramural air identified. Some hyperdense material is identified within the lumen which might be hemorrhage care PELVIS: Enlarged prostate. OSSEOUS STRUCTURES and ABDOMINAL WALL: There is an age-appropriate appearance of the osseous structures.No significant abdominal wall defect. OTHER: No free fluid or free air. IMPRESSION: 1. Findings of gastric bypass. Marked edema and wall thickening of the wall of the gastric components of the gastric bypass. No definite mechanical obstruction, intramural air or free-air. The findings are likely due to significant gastritis. Some hyperdense material within the stomach could be related to hemorrhage. 2. Other incidental nonacute appearing findings as above Please note that all CT scans at this facility use dose modulation, iterative reconstruction, and/or weight-based dosing when appropriate to reduce radiation dose to as low as reasonably achievable. Dictated by Rj Morris MD @ 03/05/2022 9:37:32 AM (Electronically Signed)
--- OUTSIDE RECORDS SUMMARY | 2022-03-05 07:52 | XMS_ITS | Encounter Summary ---
:1945 Author Organization [facility] Address [address] [place] [address] Care Team Providers Name Role Phone Benjamin Henao MD Unavailable Benjamin Henao MD Primary Care Provider Reason for Visit Reason Comments Weight Problem Annual Encounter Details Date Type Department Care Team Description 12/16/2020 Office Visit [facility] Santos Krishna, Postoper ative malabsorption (Primary Dx); Surgery Clinic and MD Elevated bilirubin; Bariatrics Care [address] [place] [address] of diabetes mellitus [place] [address] [place] [address] [address] [address] [place], [place] [phone] (Work) [phone] Social History Tobacco Use Types Packs/Day Years Used Date Smoking Tobacco: Former Cigarettes Quit : 09/28/1989 Smokeless Tobacco: Never Comments: quit 27 yrs ago as of 09/28/2016 Alcohol Use Standard Drinks/Week Comments Yes 0 (1 standard drink = 0.6 oz pure alcoho l) 1 beer a month Sex Assigned at Date Recorded Not on [...] documented in this encounter Patient Instructions Patient InstructionsTSantos pan MD - 12/16/2020 1:15 PM CDT Plan: [...] defer unless increased frequency of pain/rapid enlargement. [facility] Nutritional Guidelines Gastric Bypass 18 [...] Sample Grocery List Protein: ??? Fat free Canadian or light yogurt (less than 10 grams [...] lean ground beef or turkey) ??? Sloppy Greybull made with low-sugar ketchup and lean ground [...] dry) ??? Toasted whole wheat bread or Atwood Thins ??? Whole grain crackers ??? Baked [...] 2 oz lean roast beef on ?? Atwood Thin with 1 tsp. light nguyen ?? [...] ?? cup saut??ed chopped vegetables 2 light Clifton Krisp crackers Lunch Tuna Melt: ?? cup tuna mixed with 1 tsp. light nguyen over ?? Atwood Thin. Top with 2-3 slicescucumber and 1 [...] chopped dan peppers Supplement 1 cup light Canadian yogurt (if needed between meals) Lunch 2 [...] ?? cup vegetables Breakfast Breakfast pizza: ?? [place]wood Thin spread with 1 Tbsp. low sugar spaghetti sauce, ?? cup shredded low fat cheese, melted and 1 slice of Vermillion tsai ?? cup fresh fruit mixed with chopped almonds Lunch ?? cup black hill soup 4-5 whole grain crackers Dinner 3 oz tilapia with lemon pepper seasoning ?? cup stewed tomatoes Supplement 1 string cheese (if needed between meals) Breakfast 2 hard boiled eggs (discard 1 egg yolk) ?? whole wheat Israeli Muffin with 1 tsp. low sugar jelly Lunch ?? cup leftover black hill soup topped with 1-2 Tbsp. low fat cheese 2-3 light Clifton Krisp crackers Supplement Approved protein supplement (if [...] Portion Calories Grams of Protein Nonfat, plain Canadian yogurt (10 grams sugar or less) 3/4 [...] (broiled, grilled, baked) 3 ounces 100 21 [place]/Tuna (broiled, grilled, baked) 3 ounces 150-180 21 Shrimp, Scallops, Lobster, Crab 3 ounces 100 21 Pork loin, Pork Tenderloin 3 ounces 150 21 Boneless, skinless chicken /turkey breast (broiled, grilled, baked) 3 ounces 120 21 Mesquite, Chowan, Chester, and Venison 3 ounces 120 21 Lean cuts of red meat and pork (sirloin, round, tenderloin, flank, ground 93%-96%) 3 ounces 170 21 Lean or Extra Lean Ground [place] 1/2 cup 150 20 90-95% Lean [place] Burger 1 dong 140-180 21 Low-fat casserole with lean meat 3/4 cup 200 17 Luncheon Meats (turkey, lean ham, roast beef, chicken) 3 ounces 100 21 Egg (boiled, poached, scrambled) 1 Egg 60 7 Egg Substitute 1/2 cup 70 10 Nuts (limit to 1 serving per day) 3 Tbsp. 150 7 Nut Alcova (peanut, almond) Limit to 1 serving or less daily 1 Tbsp. 90 4 Soy Burger (varies) 1 90-130 15 Garbanzo, Black, Johansen Beans 1/2 cup 110 7 Refried Beans 1/2 cup 100 7 Kidney and Wade beans 1/2 cup 110 7 Tempeh 3 oz 175 18 Vegan crumbles 1/2 cup 100 14 Tofu 1/2 cup 110 14 [place] (beans and extra lean beef or turkey) [...] use calorieburn calculators if you search in Google, more accurate estimations should ask height/weight/gender and if you have a smart watch/heart rate monitor fitness watch then your personal burn rate will be much more accurate thenthese general numbers, but these are in the[employer]ura Gearpark. http://www.BitInstant.ClearSlide/cimirbzg-ytahgi-hwnfrschtv/ is a nice reference for manydifferent activities [...] map out distances by using sites like, rag & bone, PLAYD8, or Privy. Get out there and earn it, burn it, or pay it forward. Banking calories is always a good idea if youknow an occasion is coming up where you plan to indulge. The goal for all adults around the work is at [phone] minutes weekly of moderate aerobic activity like [...] MD, MD Primary Care Provider: Benjamin Henao 75 year old male Date of Surgery: [...] off medications since his procedure. A1c in 2019 was 5%. Reviewed his morning fasting glucoses [...] found for: HGBA1C No components found for: [id number] No components found for: [id number] No components found for: FERRITIN No components found for: PTH No components found for: 17806 No components found for: 7597 No results [...] Other Topics Concern ??? Parent/sibling w/ CABG, [place] or angioplasty before 65F 55M? Not Asked [...] Gatherings with Friends and Family: ??? Attends Rastafari Services: ??? Active Member of Clubs or [...] and opposed by aPPI). Santos Krishna MD [facility]. 12/16/2020 1:20 PM [phone] (clinic phone) [phone] (fax) No images are attached to the encounter. Medical Decision Makin minutes spent on the date of the encounter doing chart review, history and exam, documentation and further activities per the note documented in this encounter Plan of Treatment Not on filedocumented as of this encounter Results UA reflex to Microscopic - lab collect (12/16/2020 2:56 PM CDT) [facility] Method Time Signature Color Urine Yellow Colorless, 12/16/2020 [facility] Straw, Light 2:59 PM CDT LABORATORY Yellow, Yellow Appearance Urine Clear Clear 12/16/2020 [facility] 2:59 PM CDT LABORATORY Glucose Urine Negative Negative 12/16/2020 [facility] mg/dL 2:59 PM CDT LABORATORY Bilirubin Urine Negative Negative 12/16/2020 [facility] 2:59 PM CDT LABORATORY Ketones Urine Negative Negative 12/16/2020 [facility] mg/dL 2:59 PM CDT LABORATORY Specific [place] 1.020 1.005 - 12/16/2020 [facility] Urine 1.030 [...] URINE Non-blood 12/16/2020 2:56 PM 12/16 2:56 SPECIMEN / Unknown Collection / CDT PM CDT Unknown Narrative [facility] - 12/16/2020 2:59 PM CDT Microscopic not indicated Santso Krishna MD LAB - URINE ORDERABLES Performing Organization Address City/State/ZIP Code Phon e Number [facility] [address] [facility] [address] Clinic - [address] (ABNORMAL) Lipid panel reflex to direct LDL Non-fasting (12/16/2020 2:17 PM CDT) [facility] Method Time Signature Cholesterol 160 <=199 12/16/2020 [facility] mg/dL 8:55 PM CDT Triglycerides 197 (H) <=149 12/16/2020 [facility] mg/dL 8:55 PM CDT Direct Measure 50 >=40 12/16/2020 [facility] HDL mg/dL 8:55 PM CDT Comment: HDL Cholesterol Reference Range: 0-2 years: No reference ranges established for asif ents under 2 years old [facility] [employer] for lipid analytes. 2-8 years: Greater than [...] City/State/ZIP Code Phon e [place] [address] [phone] [facility] [place], [place] [phone] [place] [address] [place] [address] Zinc (12/16/2020 2:17 PM CDT) athologist Signature Zinc, 75.7 60.0 - 12/20/2020 [facility] Serum/Plasma 120.0 ug/dL 4:04 AM CDT [...] be elevated with zinc supplementation or fasting. ??[place] ofelia zinc concentrations may interfere with copper absorption. This test was developed and its performa nce characteristics determined by [employer]. It has not been cleared or approved [...] - 12/20/2020 4:04 AM CDT Performed By: [employer] [address] [place] [address] Gore Maker: Promise Monsalve MD Santos Krishna MD LAB - BLOOD ORDERABLES Performing Organization Address City/State/ZIP Code Phon e Number [facility] [place], [place] [phone] [address] [facility] [address] (ABNORMAL) Vitamin B12 (12/16/2020 2:17 PM CDT) athologist Signature Vitamin B12 1,114 (H) 213 - 816 12/16/2020 [facility] pg/mL 9:29 PM CDT Specimen Anatomical Collection Method / Collection Time Recei nona Time (Source) Location / Volume Laterality Blood BLOOD SPECIMEN / Venipuncture / 12/16/2020 2:17 2020 2:18 Unknown Unknown PM CDT PM CDT Santos Krishna MD LAB - BLOOD ORDERABLES Performing Organization Address City/State/ZIP Code Phon e Number [facility] [address] [address] [place], [place] [phone] [place] [address] [place] [address] (ABNORMAL) Vitamin B1 whole blood (12/16/2020 2:17 PM CDT) athologist Signature Vitamin B1 182 (H) 70 - 180 12/20/2020 [employer] Whole Blood nmol/L 9:45 AM CDT Level [...] and its performa nce characteristics determined by [employer]. It has not been cleared or approved [...] PM CDT Narrative [facility] - 12/20/2020 9:45 AM CDT Performed By: [employer] [address] [place] [id number] Gore Maker: Promise Monsalve MD Santos Krishna MD LAB - BLOOD ORDERABLES Performing Organization Address [facility] Phon e Number [facility] [employer] [place], [place] [phone] [address] [facility] [address] Vitamin A (12/16/2020 2:17 PM CDT) P athologist Signature Vitamin A 0.70 0.30 - 12/18/2020 [facility] 1.20 mg/L 9:40 PM CDT Retinol 0.07 0.00 - 12/18/2020 [facility] Palmitate 0.10 mg/L 9:40 PM CDT Vitamin A Normal 12/18/2020 [facility] Interp 9:40 PM CDT Comment: This test was developed and its performa nce characteristics determined by [employer]. It has not been cleared or approved by the [place] Food and Drug Adminis tration. This test was performed in a CLIA certified labora tory and is intended for clinical purposes. Specimen Anatomical Collection Method / Collection Time Recei nona Time (Source) Location / Volume Laterality Blood BLOOD SPECIMEN / Venipuncture / 12/16/2020 2:17 2020 2:18 Unknown Unknown PM CDT PM CDT Narrative [facility] - 12/18/2020 9:40 PM CDT Performed By: [employer] [address] [place] [id number] Gore Maker: Promise Monsalve MD Satnos Krishna MD LAB - BLOOD ORDERABLES Performing Organization Address City/State/ZIP Code Phon e Number [facility] [place], [place] [phone] [place] [phone] TSH (12/16/2020 2:17 PM CDT) athologist Signature TSH 1.75 0.30 - 5.00 12/16/2020 [facility] uIU/mL 9:28 PM CDT Specimen Anatomical Collection Method / Collection Time Recei nona Time (Source) Location / Volume Laterality Blood BLOOD SPECIMEN / Venipuncture / 12/16/2020 2:17 2020 2:18 Unknown Unknown PM CDT PM CDT Santos Krishna MD LAB - BLOOD ORDERABLES Performing Organization Address City/State/ZIP Code Phon e Number [facility] [place] [address] [place] [address], [facility] [phone] Parathyroid Hormone Intact (12/16/2020 2:17 PM CDT) athologist Signature Parathyroid 83 10 - 86 12/16/2020 [facility] Hormone Intact pg/mL 9:55 PM CDT Specimen Anatomical Collection Method / Collection Time Recei nona Time (Source) Location / Volume Laterality Blood BLOOD SPECIMEN / Venipuncture / 12/16/2020 2:17 2020 2:18 Unknown Unknown PM CDT PM CDT Santos Krishna MD LAB - BLOOD ORDERABLES Performing Organization Address City/State/ZIP Code Phon e Number [facility] [place] [address] [place] [address], [facility] [phone] (ABNORMAL) Hemoglobin A1c (12/16/2020 2:17 PM CDT) Analysis Performed At [facility] [place] Signature Hemoglobin A1C 6.0 (H) 0.0 - [...] - BLOOD ORDERABLES Performing Organization Address City/[facility] Phon e Number [facility] [place], [place] [phone] [place] [address] [facility] [place], [place] [phone] Folate (12/16/2020 2:17 PM CDT) athologist Signature Folic Acid 18.0 >=3.5 ng/mL 12/16/2020 [facility] 10:02 PM CDT Specimen Anatomical Collection Method / Collection Time Recei nona Time (Source) Location / Volume Laterality Blood BLOOD SPECIMEN / Venipuncture / 12/16/2020 2:17 2020 2:18 Unknown Unknown PM CDT PM CDT Santos Krishna MD LAB - BLOOD ORDERABLES Performing Organization Address City/State/[facility] Code Phon e [place] [address] [place] [address], [facility] [phone] Ferritin (12/16/2020 2:17 PM CDT) P athologist [...] City/State/ZIP Code Phon e [place] [address] [phone] [place] [address], [facility] [phone] (ABNORMAL) Comprehensive metabolic panel (12/16/2020 2:17 PM CDT) [facility] Method Time Signature Sodium 139 136 - [...] - BLOOD ORDERABLES Performing Organization Address [facility]/State/ZIP Code Ph[place] [address] [facility] [place], [place] [address] [phone] (ABNORMAL) CBC with platelets (12/16/2020 2:17 PM CDT) [facility] Method Time Signature WBC Count 10.9 [...] LAB - BLOOD ORDERABLES Performing Organization Address City/State/[facility] Code Phon e Number [facility] - [address] [facility] [address] Clinic - [address] documented in this encounter Visit Diagnoses Diagnosis Postoperative malabsorption - Primary Other and unspecified postsurgical nonab sorption Elevated bilirubin Disorders of bilirubin excretion Hx of diabetes mellitus Personal history of other endocrine, met abolic, and immunity disorders documented in this encounter Care Teams Fork Operator Relationship Specialty Start Date End Date Benjamin Henao MD PCP - General Internal Medicine 07/24/[address] [place] [address] Benjamin Henao MD Assigned PCP 10/05/[address] [place] [address] documented as of this encounter
--- OUTSIDE RECORDS SUMMARY | 2022-03-05 07:52 | XMS_ITS | Encounter Summary ---
:1945 Author Organization [facility] [place] Address [address] [place] [address] Care Team Providers Name Role Phone Benjamin [...] on filedocumented in this encounter Care Teams Field Crop I Farmworker Relationship Specialty Start Date End Date Benjamin Henao MD PCP - General Internal Medicine 07/24/16 [address] [place] [address] Benjamin Henao MD Assigned PCP 10/05/20 [address] [place] [address] documented as of this encounter
--- OUTSIDE RECORDS SUMMARY | 2022-03-05 07:52 | XMS_ITS ---
:1945 Author Care Team Providers Name Role Phone CLEMENT BRIGGS MD Primary Care Provider [phone] Allergies Code Code System Name Reaction Severity Status Onset 70194 RxNorm Lisinopril Cough Mild Active 0 Notes: Some allergies listed in Docume nt: #[id number] could not be added to this patient's [...] available ? Ureteroscopy Information not avai lable 01/28/2022 CT, Abdomen + Pelvis, W/o Contrast Infor mation not available Results Lab Results Date Name Specimen Result Interpretation Description Value Range Status Address ? 01/01/2022 PSA, Serum or Plasma ? No observation recor ded. ? ? ? Past Encounters 02/16/2021 Kidney Stone; Raised Prostate Specific A ntigen Monroe Ruelas MD: [address] [place] [address], Ph. Social History Tobacco Smoking Status Former [...]
--- OUTSIDE RECORDS SUMMARY | 2022-03-05 07:52 | XMS_ITS | Encounter Summary ---
:1945 Author Organization [place] Address [address] [place] [address] Care Team Providers Name Role Phone Benjamin Henao MD Unavailable Benjamin Henao MD Primary Care Provider Encounter Details Date Type Department Care Team Description 12/16/2020 Lab [facility] Pos toperative malabsorption (Primary Dx); [facility] Family history of diabetes linda echeverria; [facility] Elevated bilirubin [address] [place] [address] Social History Tobacco Use [...] - lab collect (12/16/2020 2:56 PM CDT) [facility] Method Time Signature Color Urine Yellow Colorless, 12/16/2020 [facility] Straw, Light 2:59 PM CDT LABORATORY Yellow, Yellow Appearance Urine Clear Clear 12/16/2020 [facility] 2:59 PM CDT LABORATORY Glucose Urine Negative Negative 12/16/2020 [facility] mg/dL 2:59 PM CDT LABORATORY Bilirubin Urine Negative Negative 12/16/2020 [facility] 2:59 PM CDT LABORATORY Ketones Urine Negative Negative 12/16/2020 [facility] mg/dL 2:59 PM CDT LABORATORY Specific [place] 1.020 1.005 - 12/16/2020 [facility] Urine 1.030 [...] Collection / CDT PM CDT Unknown Narrative [facility] - 12/16/2020 2:59 PM CDT Microscopic not indicated Santos Krishna MD LAB - URINE ORDERABLES Performing Organization Address City/State/ZIP Code Phon e Number [facility] [address] [place] [address], [facility] - [address] (ABNORMAL) Lipid panel reflex to direct LDL Non-fasting (12/16/2020 2:17 PM CDT) [facility] Method Time Signature Cholesterol 160 <=199 12/16/2020 [facility] mg/dL 8:55 PM CDT Triglycerides 197 (H) <=149 12/16/2020 [facility] mg/dL 8:55 PM CDT Direct Measure 50 >=40 12/16/2020 [facility] HDL mg/dL 8:55 PM CDT Comment: HDL Cholesterol Reference Range: 0-2 years: No reference ranges established for asif ents under 2 years old ??at [facility] for lipid analytes. 2-8 years: Greater than [...] City/State/ZIP Code [place] [address] [facility] [place], [place] [address] [phone] Zinc (12/16/2020 2:17 PM CDT) athologist Signature Zinc, 75.7 60.0 - 12/20/2020 [facility] Serum/Plasma 120.0 ug/dL 4:04 [...] be elevated with zinc supplementation or fasting. ??[place] zinc concentrations may interfere with copper absorption. This test was developed and its performa nce characteristics determined by [facility]. It has not been cleared or approved [...] - 12/20/2020 4:04 AM CDT Performed By: [facility] [address] [place] [address] Director Of Scout Work: Promise Monsalve MD Santos Krishna MD LAB - BLOOD ORDERABLES Performing Organization Address City/[facility]/ZIP [facility] Phon e Number [place] [phone] [address] [facility] [phone] (ABNORMAL) Vitamin B12 (12/16/2020 2:17 PM CDT) athologist Signature Vitamin B12 1,114 (H) 213 - 816 12/16/2020 [facility] pg/mL 9:29 PM CDT Specimen Anatomical Collection Method / Collection Time Recei nona Time (Source) Location / Volume Laterality Blood BLOOD SPECIMEN / Venipuncture / 12/16/2020 2:17 2020 2:18 Unknown Unknown PM CDT PM CDT Santos Krishna MD LAB - BLOOD ORDERABLES Performing Organization Address City/[facility]/ZIP Code Phon e Number [facility] [place] [address] [address] [place], [place] [address] [phone] (ABNORMAL) Vitamin B1 whole blood (12/16/2020 2:17 PM CDT) athologist Signature Vitamin B1 182 (H) 70 - 180 12/20/2020 [facility] Whole Blood nmol/L 9:45 AM CDT Level [...] and its performa nce characteristics determined by [facility]. It has not been cleared or approved by the [place] Food and Drug Adminis tration. This test was performed in a CLIA certified labora tory and is intended for clinical purposes. Specimen Anatomical Collection Method / Collection Time Recei nona Time (Source) Location / Volume Laterality Blood BLOOD SPECIMEN / Venipuncture / 12/16/2020 2:17 2020 2:18 Unknown Unknown PM CDT PM CDT Narrative [facility] - 12/20/2020 9:45 AM CDT Performed By: [facility] [address] [place] [address] Director Of Scout Work: Promise Monsalve MD Santos Krishna MD LAB - BLOOD ORDERABLES Performing Organization Address City/State/ZIP Code Phon e Number [place], [place] [phone] [place] [phone] Vitamin A (12/16/2020 2:17 PM CDT) P athologist Signature Vitamin A 0.70 0.30 - 12/18/2020 [facility] 1.20 mg/L 9:40 PM CDT Retinol 0.07 0.00 - 12/18/2020 [facility] Palmitate 0.10 mg/L 9:40 PM CDT Vitamin A Normal 12/18/2020 [facility] Interp 9:40 PM CDT Comment: This test was developed and its performa nce characteristics determined by [facility]. It has not been cleared or approved by the US Food and Drug Adminis tration. This test was performed in a CLIA certified labora tory and is intended for clinical purposes. Specimen Anatomical Collection Method / Collection Time Recei nona Time (Source) Location / Volume Laterality Blood BLOOD SPECIMEN / Venipuncture / 12/16/2020 2:17 2020 2:18 Unknown Unknown PM CDT PM CDT Narrative [facility] - 12/18/2020 9:40 PM CDT Performed By: [facility] [address] [place] [address] Director Of Scout Work: Promise Monsalve MD Santos Krishna MD LAB - BLOOD ORDERABLES Performing Organization Address City/State/ZIP Code Phon e Number [facility] [place], [place] [phone] [place] [phone] TSH (12/16/2020 2:17 PM CDT) P athologist Signature TSH 1.75 0.30 - 5.00 12/16/2020 [facility] uIU/mL 9:28 PM CDT Specimen Anatomical Collection Method / Collection Time Recei nona Time (Source) Location / Volume Laterality Blood BLOOD SPECIMEN / Venipuncture / 12/16/2020 2:17 2020 2:18 Unknown Unknown PM CDT PM CDT Santos Krishna MD LAB - BLOOD ORDERABLES Performing Organization Address City/[facility]/ZIP Code Phon e Number [facility] [place] [address] [place] [address], [facility] [phone] Parathyroid Hormone Intact (12/16/2020 2:17 PM CDT) athologist Signature Parathyroid 83 10 - 86 12/16/2020 [facility] Hormone Intact pg/mL 9:55 PM CDT Specimen Anatomical Collection Method / Collection Time Recei nona Time (Source) Location / Volume Laterality Blood BLOOD SPECIMEN / Venipuncture / 12/16/2020 2:17 2020 2:18 Unknown Unknown PM CDT PM CDT Santos Krishna MD LAB - BLOOD ORDERABLES Performing Organization Address City/[facility]/ZIP Code Phon e Number [facility] [place] [address] [place] [address], [facility] [phone] (ABNORMAL) Hemoglobin [...] LAB - BLOOD ORDERABLES Performing Organization Address City/[facility] Phon e Number [facility] [address] [facility] [place], [place] [phone] [place] [address] - [address] Folate (12/16/2020 2:17 PM CDT) athologist [facility] Folic Acid 18.0 >=3.5 ng/mL 12/16/2020 [facility] 10:02 PM CDT Specimen Anatomical Collection Method / Collection Time Recei nona Time (Source) Location / Volume Laterality Blood BLOOD SPECIMEN / Venipuncture / 12/16/2020 2:17 2020 2:18 Unknown Unknown PM CDT PM CDT Santos Krishna MD LAB - BLOOD ORDERABLES Performing Organization Address City/[facility] Code Phon [place] [address] [place] [address], [facility] [phone] [place] [address] Ferritin (12/16/2020 2:17 PM CDT) athologist Signature Ferritin 30 27 - 300 12/16/2020 [facility] ng/mL 9:29 PM CDT Specimen Anatomical Collection Method / Collection Time Recei nona Time (Source) Location / Volume Laterality Blood BLOOD SPECIMEN / Venipuncture / 12/16/2020 2:17 2020 2:18 Unknown Unknown PM CDT PM CDT Santos Krishna MD LAB - BLOOD ORDERABLES Performing Organization Address City/State/ZIP Code Phon [place] [address] [place] [address], [facility] [phone] (ABNORMAL) Comprehensive metabolic panel (12/16/2020 2:17 PM CDT) [facility] Method Time Signature Sodium 139 136 - [...] City/State/ZIP Code [place] [address] [facility] [place], [place] [phone] [place] [address] [address] (ABNORMAL) CBC with platelets (12/16/2020 2:17 PM CDT) [facility] Method Time Signature WBC Count 10.9 4.0 [...] Organization Address City/State/ZIP Code Phon e Number [facility] [address] [place] [address], [facility] - [address] 25 Hydroxyvitamin D2 and D3 (12/16/2020 [...] a nd treatment affect the concentration of 73-fwizruo-Rmginwy D. Values may decreas e during winter [...] its performa nce characteristics determined by the [facility], ??Special Chemistry Laboratory. It has not been cleared or approved by the FDA. The laboratory is regulated under CLIA as qualified to perform high-complexity le ting. This test is used for clinical purposes. It should not be regarded as i nvestigational or for research. Santos Krishna MD LAB - BLOOD ORDERABLES Performing Organization Address City/State/ZIP Code Phon e Number [facility]/[place] [phone] [address] [facility] [address] Building, Room 3-580 [facility] [address], [facility] [place] [address] [facility], Room L223 documented in this encounter Visit Diagnoses Diagnosis Postoperative malabsorption - Primary Other and unspecified postsurgical nonab sorption Family history of diabetes mellitus Elevated bilirubin Disorders of bilirubin excretion documented in this encounter Care Teams Refrigeration Houseman Relationship Specialty Start Date End Date Benjamin Henao MD PCP - General Internal Medicine 07/24/[address] [place] [address] Benjamin Henao MD Assigned PCP 10/05/[address] [place] [address] documented as of this encounter
--- OUTSIDE RECORDS SUMMARY | 2022-03-05 07:52 | XMS_ITS | Clinical Summary ---
:1945 Author Organization [place] Address [address] [place] [address] Care Team Providers Name Role Phone Benjamin [...] Conversion Colonic Diverticulosis Overview: Created by Conversion [employer] [facility] Annotation: Sep 03 2011 2:15 PM [...] ZOSTER IMMUNIZATION (2 of 08/08/2015 06/13/2015 2) LUNG CANCER SCREENING 05/06/2018 05/06/2017 MICROALBUMIN 11/22/2019 11/21/2018, 10/22/2017, 06/13/2015 FALL RISK ASSESSMENT 06/29/2020 06/30/2019 COVID-19 Vaccine (4 - 03/21/2021 01/24/2021, 05/24/2020, Booster for Pfizer series) 05/03/2020 PHQ-2 (once per calendar 04/22/2021 12/23/2018 year) A1C 06/18/2021 12/16/2020, 06/30/2019, 11/21/2018, Additional history [...] 06/13/2015 , Years 10/04/2014, Additional history exists COLONOSCOPY Discontinued 12/11/2021, 08/28/2016, 08/29/2011, Additional history exists COLORECTAL CANCER Discontinued SCREENING CT COLONOGRAPHY Discontinued FIT-DNA (Cologuard) Discontinued FIT Discontinued FLEX SIG Discontinued IPV IMMUNIZATION Aged Out No longer eligi ble based on patient 's age to complete this topic MENINGITIS IMMUNIZATION Aged Out No longe r eligible based on patient 's age to complete this topic Medical Devices Implanted Type Area Sourcing Analyst Device Shelf Model / Identifier Expiration Serial / Date Lot Staple Reload Kinross 60mm 2.6mm White - [id number] - S Metallic N/ A: [employer] 02/19/2022 [id number] / Implanted: Qty: 2 on 05/01/2017 Hardware/Anc Abdomen [employer] / hor [id number] Procedures Procedure Name Priority Date/Time Associated Diagnosis Comme nts COLONOSCOPY - HIM SCAN 12/11/2021 12:00 AM CDT from Last 3 Months Results COLONOSCOPY - HIM SCAN (12/11/2021 12:00 AM CDT) Specimen (Source) Anatomical Location Collection Method / Collectio n Time Received Time / Laterality Volume 12/11/2021 Narrative This result has an attachment that is no t available. Provider Outside PROCEDURES from Last 3 Months Insurance Payer Benefit Plan / Subscriber ID Effective Dates Phone Addre ss Type Group [facility] MEDICARE [id number] 2019-Present [phone] [address] [place] [address] Care Teams Sports Information Director Relationship Specialty Start Date End Date Benjamin Henao MD PCP - General Internal Medicine 07/24/[address] [place] [id number] Benjamin Henao MD Assigned PCP 10/05/[address] [place] [address]
--- OUTSIDE RECORDS SUMMARY | 2022-03-05 07:53 | XMS_ITS | Encounter Summary ---
:1945 Author Organization [place] Address [address] [place] [address] Care Team Providers Name Role Phone Benjamin Henao MD Primary Care Provider Reason for Visit Reason Comments Weight Problem Lab draw reminder Encounter Details Date Type Department Care Team Description 04/08/2018 [facility] Gayatri Weber Weight Problem (Lab [facility] and B, RN draw holger nder) Bariatrics Care [address] [facility] [address] [place] [address] Social History Tobacco Use Types Packs/Day Years Used Date Smoking Tobacco: Former Cigarettes Quit : 08/27/1989 Alcohol Use Standard Drinks/Week Comments Yes 0 (1 standard drink = 0.6 oz pure alcoho l) Sex Assigned at Date Recorded Not on file documented as of this encounter Plan of Treatment Not on filedocumented as of this encounter Visit Diagnoses Diagnosis S/P bariatric surgery Bariatric surgery status Postsurgical malabsorption Other and unspecified postsurgical nonab sorption Intestinal malabsorption, unspecified documented in this encounter Care Teams Community Health Nurse Staff Relationship Specialty Start Date End Date Benjamin Henao MD PCP - General Internal Medicine 07/24/16 [address] [place] [address] documented as of this encounter
--- OUTSIDE RECORDS SUMMARY | 2022-03-05 07:53 | XMS_ITS | Encounter Summary ---
:1945 Author Organization [place] Address [address] [place] [address]. [place] [address] Care Team Providers Name Role Phone Benjamin [...] Team Description 01/02/2019 Office Visit - [facility] Benjamin Henao, Inci sional hernia, without obstruction or gangrene; [facility] Jose R FORTUNE Dysuria; Bass Manageraditi [address] [employer] Screening for prostate cance r; [address] [place] [address] Social History Tobacco Use Types Packs/Day [...] Negative Negative 01/02/2019 11:19 AM CDT Specific [place] 1.020 1.005 - 01/02/2019 Urine 1.030 11:19 [...] organ documented in this encounter Care Teams Form Tamper Relationship Specialty Start Date End Date Benjamin Henao MD PCP - General Internal Medicine 07/24/[address] [place] [address] documented as of this encounter
--- OUTSIDE RECORDS SUMMARY | 2022-03-05 07:53 | XMS_ITS | Encounter Summary ---
:1945 Author Organization [place] Address [address] [place] [address] Care Team Providers Name Role Phone Benjamin Henao MD Primary Care Provider Reason for Visit Reason Comments Diabetes blood sugar this morning 123 Encounter Details Date Type Department Care Team Description 05/02/2020 Office Visit - [facility] Benjamin Henao, Type 2 diabetes mellitus with complication, without long-term current use of insulin (H); [facility] Jose R FORTUNE High cholesterol; [place] [address] [facility] Essential hypertension; [address] Impotence of organic origin; Drive [place], [place] Morbid obesity (H); [place] [address] Mixed hyperlipidemia [address] Social History Tobacco Use Types Packs/Day Years Used Date Smoking Tobacco: Former Cigarettes Quit : 09/28/1989 Smokeless Tobacco: Never Comments: quit 27 yrs ago as of 09/28/2016 Alcohol Use Standard Drinks/Week Comments No 0 (1 standard drink = 0.6 oz pure alcoho l) Sex Assigned at Date Recorded Not on file documented as of this encounter Progress Notes Benjaimn Henao MD - 05/02/2020 3:40 PM CST Faith Adames is a 74 y.o. male who is being evaluated via a billable telephone visit. What phone number would you like to be contacted at? [phone] How would you like to obtain your AVS? AVS Preference: Wally[place]athi. 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 Medications were refilled. I will call him with results and further recommendations. No follow-ups on file. MD Chilo Goetz [facility] Subjective Faith Adames is 74 y.o. and presents to clinic today for the following health issues Dr. Adames calls in today in respect to his chronic medical conditions. Overall he is feeling well today and has no acute complaints. His type 2 diabetes is under diet controlled since his gastric bypass surgery. He checks his blood pressure about once every 5 or 6 days and has always been in the 110s to 120 range. He knows that he is due for some labs. Lipids were checked in June 2019 and were excellent. Renal function was also done at that time and was excellent as well. Objective Vitals: No vitals were obtained today due to virtual visit. Phone call duration: 8 minutes L HANDLER documented in this encounter Miscellaneous Notes Addendum Note - Inna Andrews - 05/02/2020 3:40 PM CST Addendum Note by Inna Andrews at 05/02/2020 3:40 PM Author: Inna Andrews Service: -- Author Type: [employer] Filed: 05/04/2020 7:46 AM Encounter Date: 05/02/2020 Status: Signed Vat Washer: Inna Andrews (Supervisor [employer]) Addended by: INNA ANDREWS on: 05/04/2020 07:46 AM Modules accepted: Orders L HANDLER documented in this encounter Plan of Treatment Not on filedocumented as of this encounter Visit Diagnoses Diagnosis Type 2 diabetes mellitus with complicati on, without long-term current use of insulin (H) High cholesterol Pure hypercholesterolemia Essential hypertension Unspecified essential hypertension Impotence of organic origin Morbid obesity (H) Morbid obesity Mixed hyperlipidemia documented in this encounter Care Teams Diesel Mechanic Relationship Specialty Start Date End Date Benjamin Henao MD PCP - General Internal Medicine 07/24/[address] [place] [address] documented as of this encounter
--- OUTSIDE RECORDS SUMMARY | 2022-03-05 07:53 | XMS_ITS | Encounter Summary ---
:1945 Author Organization [place] Address [address] [place] [address] Care Team Providers Name Role Phone Benjamin Henao MD Primary Care Provider Encounter Details Date Type Department Care Team Description 05/09/2020 Orders Only [facility] Benjamin Henao MD Diabetic complication (H) (Primary Dx); Clinic [address] Type 2 di abetes mellitus with manifestations (H) [address] [address] [place], [place] [address] [place] [address] Social History Tobacco Use Types [...] uncontrolled documented in this encounter Care Teams Fixture Repairer Fabricator Relationship Specialty Start Date End Date Benjamin Henao MD PCP - General Internal Medicine 07/24/16 [address] [place] [address] documented as of this encounter
--- OUTSIDE RECORDS SUMMARY | 2022-03-05 07:53 | XMS_ITS | Encounter Summary ---
:1945 Author Organization [place] Address [address] [place] [address] Care Team Providers Name Role Phone Benjamin Henao MD Primary Care Provider Reason for Visit Reason Comments Weight Problem 1 yr p/o Encounter Details Date Type Department Care Team Description 06/05/2018 Office Visit - M [facility] [place], Postoper ative malabsorption; [facility] and MD Santos Erectile dysfunction, unspecified erecti le dysfunction type; [facility] 2945 H/O gastric bypass; [facility] Type 2 diabetes mellitus without complic ation, without long-term current use of insulin (H); [address] [place] 200 Gastroesophageal reflux disease without esophagitis [address] [facility] [phone] Social History Tobacco Use Types Packs/Day Years [...] (231 lb 3.2 oz) 06/05/2018 10:30 AM HAND SALTER Height 172.7 cm (5' 8) 06/05/2018 10:30 AM HAND SALTER Body Mass Index 35.15 06/05/2018 10:30 AM HAND SALTER documented in this encounter Progress Notes Santos [...] lbs since surgery. Overall compliance with the [facility] has been excellent. [...] the 230s he should start working with motor vehicles supervisor again as there has been a little grazing lately due to post workout hunger issues with many of his workouts burning 1000 calories per his treadmill counter (90 minutes walking at 4% grade). He's also going to start more strength training at his gym. We discussed optimizing meals/protein intake but I will have our motor vehicles supervisor reach out for some further guidance given his unusually high workout production. . Faith Adames feels that he has achieved his preoperative goals for bariatric surgery. Plan: 1. Great job on continued good metabolic health with A1c of 5.3% and 88 lbs of weight reduction. Keeping your home scale weight under 230 lbs is a good goal for the shelter. Continue excellent exercise regimen and adding in [...] 261 04/14/2018 Lab Results Component Value Date [id number] 36.4 04/14/2018 Lab Results Component Value Date HGBA1C 5.3 04/14/2018 Lab Results Component Value Date CHOL 177 04/14/2018 Lab Results Component Value Date PTH 33 04/14/2018 Lab Results Component Value Date FERRITIN 35 04/14/2018 Lab Results Component Value Date HDL 56 04/14/2018 Lab Results Component Value Date [id number] 1,220 (H) 04/14/2018 Lab Results Component Value Date 38252 118 10/19/2016 Lab Results Component Value Date [...] nutritional or structural complications. Santos Krishna MD [facility]. 06/05/2018 10:59 AM SALTER documented in this encounter Miscellaneous Notes Patient Instructions - HÉCTOR - Santos Krishna MD - 06/05/2018 10:30 AM HAND SALTER Plan: 1. Great job on continued good metabolic health with A1c of 5.3% and 88 lbs of weight reduction. Keeping your home scale weight under 230 lbs is a good goal for the shelter. Continue excellent exercise regimen and adding in 2 days a week of strength training. 2. Given gas, consider trial of OTC Lactaid or GasX. 3. Viagra prescription filled today per your request. Avoid if dizziness/faint or visual changes. 4. Continue excellent vitamin vitamin regimen. [facility] Nutritional Guidelines Gastric Bypass 12 [...] Sample Grocery List Protein: ??? Fat free [place] Rican or light yogurt (less than 10 grams [...] lean ground beef or turkey) ??? Sloppy Hastings made with low-sugar ketchup and lean ground [...] dry) ??? Toasted whole wheat bread or Preston Thins ??? Whole grain crackers ??? Baked/boiled/mashed [...] beef or turkey Supplement 6 oz light [place]ican yogurt (as needed) Dinner 3 oz grilled, [...] substitute and turkey sausage ?? whole grain Burkinan muffin with 1 teaspoon low sugar jelly Lunch 3 oz seasoned, skinless grilled chicken ?? cup grilled vegetables Dinner 2 oz lean beef ?? cup brown rice ?? cup strawberries Supplement 1 string cheese (as needed) Breakfast 6 ounces light [place] yogurt ?? cup unsweetened mixed berries Lunch [...] ounces turkey sausage dong ?? whole wheat Burkinan muffin Supplement Approved protein supplement (as needed between meals) Lunch 3 oz lean ham, turkey, or chicken ?? cup tomatoes Dinner 2 oz. sirloin steak ?? cup mixed vegetables ?? cup brown rice SALTER documented in this encounter Plan of Treatment [...] reflux documented in this encounter Care Teams Tool And Die Inspector Relationship Specialty Start Date End Date Benjamin Henao MD PCP - General Internal Medicine 07/24/16 [address] [place] [address] documented as of this encounter
--- OUTSIDE RECORDS SUMMARY | 2022-03-05 07:53 | XMS_ITS | Encounter Summary ---
:1945 Author Organization [place] Address [address] [place] [address] Care Team Providers Name Role Phone Benjamin Henao MD Primary Care Provider Encounter Details Date Type Department Care Team Description 04/17/2018 Communication - [facility] Santos Krishna, [facility] and [facility] [address] [place] [address] [place] [phone] [place] [address] [phone] (Work) [phone] Social History Tobacco Use Types Packs/Day Years [...] on filedocumented in this encounter Care Teams Jewelry Finisher Relationship Specialty Start Date End Date Benjamin Henao MD PCP - General Internal Medicine 07/24/16 [address] [place] [address] documented as of this encounter
--- OUTSIDE RECORDS SUMMARY | 2022-03-05 07:53 | XMS_ITS | Encounter Summary ---
:1945 Author Organization [place] Address [address] [place] [address] Care Team Providers Name Role Phone Benjamin Henao MD Primary Care Provider Reason for Visit Reason Comments Diabetes not fasting Medication Update Encounter Details Date Type Department Care Team Description 11/21/2018 Office Visit - [facility] Benjamin Henao, Type 2 diabetes mellitus without complication, without long-term current use of insulin (H); [facility] Jose R FORTUNE Type 2 diabetes mellitus with complicati on, without long-term current use of insulin (H); [facility] 1824 [facility] coronary artery arlen cium score between 200 and 399 [place] [phone] Social History Tobacco Use Types Packs/Day [...] - Inhaled Oxygen Concentration - - Weight 102.5 kg (226 lb) 11/21/2018 12:46 PM CDT Height - - Body Mass Index 34.36 06/05/2018 10:30 AM LENS MOLDER documented in this encounter Progress Notes Juliano Benjamin Chilo - 11/21/2018 12:40 PM CDT ASSESSMENT and PLAN: #1. Type 2 diabetes, currently on 500 mg of metformin. We will recheck a hemoglobin A1c today. I told him that if A1c was still low we could conceivably get him off of his metformin entirely which she is open to. 2. Hyperlipidemia along with a coronary calcium score of 266 in 2012. We had a discussion regarding the risks and benefits of an increase Lipitor dose. He wants to increase his Lipitor to 20 mg/day which I believe is quite reasonable. I will check a lipid profile today as well. 3. Hypertension, controlled on losartan. Problem List Items Addressed This Visit Type 2 diabetes mellitus (H) - Primary Relevant Orders Glycosylated Hemoglobin A1c Microalbumin, Random Urine Lipid [place] Type 2 diabetes mellitus with complication, without long-term current use of insulin (H) Relevant Orders Glycosylated Hemoglobin A1c There are no Patient Instructions on file for this visit. Medications Discontinued During This Encounter Medication Reason ??? cetirizine (ZYRTEC) 10 mg cap ??? omeprazole (PRILOSEC) 20 MG capsule No follow-ups on file. CHIEF COMPLAINT: Chief Complaint Patient presents with ??? Diabetes not fasting ??? Medication Management HISTORY OF PRESENT ILLNESS: Faith Adames is a 73 y.o. male presenting to the clinic today for follow- up of his chronic medical conditions. 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 He feels much much better at this point and has a lot more energy. He had labs checked by Dr. Krishna in March of this year which revealed a hemoglobin A1c of 5.3 and a lipid profile which showed an LDL of 96. He stayed on his metformin as per his own choiceand was continued on 10 mg of Lipitor. He is wondering if he needs to increase his dose of Lipitor at all given his significant family history. He states that he had a calcium score in the past and I was able to find one in the archives from 2012 which showed a calcium score of 266. Blood pressure is under excellent control today. REVIEW OF SYSTEMS: Pertinent positives noted in HPI, remainder of ROS is negative. PFSH: MEDICATIONS: Current Outpatient Medications Medication Sig Dispense [...] for erectile dysfunction. 30 tablet 3 ??? cyanocobalamin, vitamin B-12, 1,[address] 1 tablet (1,000 mcg total) under the tongue every other day. 45 tablet 3 No current facility-administered medications for this visit. TOBACCO USE: Social History Tobacco Use Smoking Status Former Smoker ??? Last attempt to quit: 09/28/1989 ??? Years since quittin.1 Smokeless Tobacco Never Used Tobacco Comment quit 27 yrs ago as of 09/28/2016 VITALS: Vitals: 11/21/18 1246 BP: 138/70 Pulse: 76 Weight: (!) 226 lb (102.5 kg) Wt Readings from Last 3 Encounters: 11/21/18 (!) 226 lb (102.5 kg) 06/05/18 (!) 231 lb 3.2 oz (104.9 kg) 01/08/18 221 lb (100.2 kg) PHYSICAL EXAM: Constitutional: Reveals an alert, pleasant male. Vitals: Per nursing notes. Body mass index is 34.36 kg/m??. Neurologic: Normal documented in this encounter Plan of Treatment Not on filedocumented as of this encounter Procedures Procedure Name Priority Date/Time Associated Comments Diagnosis ALBUMIN RANDOM URINE Routine 11/21/2018 1:28 PM R esults for this QUANTITATIVE CDT procedure are i n the results section. LIPID PROFILE Routine 11/21/2018 1:28 PM Results for this CDT procedure are i n the results section. HEMOGLOBIN A1C Routine 11/21/2018 1:28 PM Results for this CDT procedure are i n the results section. documented in this encounter Results (ABNORMAL) Albumin Random Urine Quantitative (11/21/2018 1:28 PM CDT) Patholo gist Method Time Signature Microalbumin 1.28 0.00 - 11/21/2018 Urine mg/dL 1.99 8:04 PM CDT mg/dL Creatinine, Urine 46.6 mg/dL 11/21/2018 8:04 PM CDT Microalbumin 27.5 (H) <=19.9 11/21/2018 Urine mg/g Cr mg/g 8:04 PM CDT Specimen Anatomical Collection Method Collection Time Receive d Time (Source) Location / / Volume Laterality Urine specimen Non-blood 11/21/2018 1:28 PM 019 6:50 (specimen) Collection / CDT PM CDT Unknown Narrative 11/21/2018 8:04 PM CDT Microalbumin, Random Urine <2.0 mg/dL [...] MD LAB - URINE ORDERABLES Hemoglobin A1c (11/21/2018 1:28 PM CDT) P athologist Signature Hemoglobin A1C 5.6 3.5 - 6.0 % 11/21/2018 2:02 PM CDT Specimen Anatomical Collection Method / Collection Time Recei nona Time (Source) Location / Volume Laterality Blood specimen Venipuncture / 11/21/2018 1:28 11/22/19 19 1:28 (specimen) Unknown PM CDT PM CDT Authorizing Provider Result Edel Henao MD LAB - BLOOD ORDERABLES (ABNORMAL) Lipid Profile (11/21/2018 1:28 PM CDT) [facility] gist Method Time Signature Cholesterol 163 <=199 11/21/2018 mg/dL 8:02 PM CDT Triglycerides 166 (H) <=149 11/21/2018 mg/dL 8:02 PM CDT Direct Measure HDL 53 >=40 11/21/2018 mg/dL 8:02 PM CDT LDL Cholesterol 77 <=129 11/21/2018 Calculated mg/dL 8:02 PM CDT Patient Fasting > No 11/21/2018 8hrs? 8:02 PM CDT Specimen Anatomical Collection Method / Collection Time Recei nona Time (Source) Location / Volume Laterality Blood specimen Venipuncture / 11/21/2018 1:28 11/22/19 19 6:50 (specimen) Unknown PM CDT PM CDT Authorizing Provider Result Edel Henao MD LAB - BLOOD ORDERABLES documented in this encounter Visit Diagnoses Diagnosis Type 2 diabetes mellitus without complic ation, without long-term current use of insulin (H) Type 2 diabetes mellitus with complicati on, without long-term current use of insulin (H) [place] coronary artery calcium score b etween 200 and 399 Nonspecific (abnormal) findings on radio logical and other examination of other intrathoracic organs documented in this encounter Care Teams Business Continuity Director Relationship Specialty Start Date End Date Benjamin Henao MD PCP - General Internal Medicine 07/24/[address] [place] [address] documented as of this encounter
--- OUTSIDE RECORDS SUMMARY | 2022-03-05 07:53 | XMS_ITS | Encounter Summary ---
:1945 Author Organization [place] Address [address] [place] [address] Care Team Providers Name Role Phone Benjamin Henao MD Primary Care Provider Encounter Details Date Type Department Care Team Description 10/22/2018 [facility] [address] [place] [phone] Social History Tobacco Use Types Packs/Day Years [...] on filedocumented in this encounter Care Teams Mapping Supervisor Relationship Specialty Start Date End Date Benjamin Henao MD PCP - General Internal Medicine 07/24/16 [address] [place], [place] [id number] documented as of this encounter
--- OUTSIDE RECORDS SUMMARY | 2022-03-05 07:53 | XMS_ITS | Encounter Summary ---
:1945 Author Organization [place] Address [address] [place] [address] Care Team Providers Name Role Phone Benjamin Henao MD Primary Care Provider Reason for Visit Reason Comments Follow Up Appointment Encounter Details Date Type Department Care Team Description 04/13/2020 Communication - [facility] Benjamin Henao, [facility]; [facility] Jose R FORTUNE Appointment [facility] 1824 [facility] 1825 [place] [phone] Social History Tobacco Use Types Packs/Day Years [...] 05/02 at 3:40 pm. Judy Hansen CMA MACHINE PROGRAMMER Telephone Encounter - Benjamin Henao MD - 04/13/2020 8:37 PM CST He's due for DM follow up with me. Please schedule him within the next 2-3 weeks at his convenience. MACHINE PROGRAMMER Telephone Encounter - Radha Terry - 04/13/2020 11:38 AM CST Patient is calling and was wondering when Dr. Henao would like him to follow up and get labs done.Please advise. Radha Terry CMA ............... 11:38 AM, 04/13/20 MACHINE PROGRAMMER documented in this encounter Plan of Treatment Not on filedocumented as of this encounter Visit Diagnoses Not on filedocumented in this encounter Care Teams Independent Insurance Adjuster Relationship Specialty Start Date End Date Benjamin Henao MD PCP - General Internal Medicine 07/24/[address] [place] [address] documented as of this encounter
--- OUTSIDE RECORDS SUMMARY | 2022-03-05 07:53 | XMS_ITS | Encounter Summary ---
:1945 Author Organization [place] Address [address] [place] [address] Care Team Providers Name Role Phone Benjamin Henao MD Primary Care Provider Encounter Details Date Type Department Care Team Description 05/18/2019 Records - [facility] Provider, [email or web address] 1690 [facility] [address] [place] [address] Social History Tobacco Use Types Packs/Day Years [...] order was created through External Result Entry [facility] CONSULTATION EXTERNAL Historical Provider OTHER documented in this encounter Visit Diagnoses Not on filedocumented in this encounter Care Teams Vocational Education Professional Relationship Specialty Start Date End Date Benjamin Henao MD PCP - General Internal Medicine 07/24/16 [address] [place] [address] documented as of this encounter
--- OUTSIDE RECORDS SUMMARY | 2022-03-05 07:53 | XMS_ITS | Encounter Summary ---
:1945 Author Organization [place] Address [address] [place] [address] Care Team Providers Name Role Phone Benjamin Henao MD Primary Care Provider Reason for Visit Reason Comments Diabetes a1c, lipids , fasting Encounter Details Date Type Department Care Team Description 06/30/2019 Office Visit - M [facility] Benjamin Henao, H/O gastric bypass; [facility] Jose R FORTUNE Essential hypertension; [facility] Mixed hyperlipidemia; [address] Type 2 diabetes mellitus with complicati on, without long-term current use of insulin (H); Drive [place], [place] Intestinal malabsorption, un specified type; [place] [address] Unspecified severe protein-calorie malnu trition (H); [phone] Encounter for administrative examinations, unspecified; Encounter for adoption services; [phone] Aftercare follo wing surgery for neoplasm; (Fax) [...] this encounter Progress Notes Benjamin Henao - 06/30/2019 9:40 AM CDT ASSESSMENT and [...] C Antibody (Anti-HCV) Comprehensive Metabolic Panel Lipid [place] Mixed hyperlipidemia Hypertension H/O gastric bypass - [...] (ABNORMAL) Lipid Profile (06/30/2019 10:23 AM CDT) [facility] Method Time Signature Cholesterol 156 <=199 06/30/2019 [...] PLATELETS AND DIFFERENTIAL (06/30/2019 10:23 AM CDT) [facility] Method Time Signature WBC 8.6 4.0 - [...] Test developed and characteristics deter mined by [employer]. See Compliance Statement B : [employer] Performed by [employer], [address] [facility] [place] [address] [email or web address], Karlos Acosta MD, Lab. Director Specimen Anatomical Collection Method / Collection Time Recei nona Time (Source) Location / Volume Laterality Blood specimen Venipuncture / 06/30/2019 10:23 020 4:09 (specimen) Unknown AM CDT AM CDT Authorizing Provider Result Edel Henao MD LAB - BLOOD ORDERABLES Ferritin [...] Edel Henao MD LAB - BLOOD ORDERABLES Parathyroid [...] HEALTH Total 80.0 ng/mL 11:36 AM CDT [facility] Specimen Anatomical Collection Method / Collection Time Recei nona Time (Source) Location / Volume Laterality Blood specimen Venipuncture / 06/30/2019 10:23 020 4:37 (specimen) Unknown AM CDT PM CDT Narrative [facility] - 07/01/2019 11:36 AM CDT Deficiency <10.0 ng/mL Insufficiency 10.0-29.9 ng/mL Sufficiency 30.0-80.0 ng/mL Toxicity (possible) >100.0 ng/mL Benjamin Henao MD LAB - BLOOD ORDERABLES Performing Organization Address City/State/ZIP Code Phon e Number [facility] [place] [address] [id number] [place], [place] [address]S LABORATORY O LABORATORY [address] [place] [address], [facility] Zinc (06/30/2019 10:23 AM CDT) athologist Signature [...] Test developed and characteristics deter mined by [employer]. See Compliance Statement B : [employer] Performed by [employer], [address] [place] [address] [email or web address], Karlos Acosta MD, Lab. Director Specimen Anatomical [...] Test developed and characteristics deter mined by [employer]. See Compliance Statement B : [employer] Performed by [employer], [address] [place] [address] [email or web address], Karlos Acosta MD, Lab. Director Specimen Anatomical Collection Method / Collection Time Recei nona Time (Source) Location / Volume Laterality Blood specimen Venipuncture / 06/30/2019 10:23 020 3:26 (specimen) Unknown AM CDT AM CDT Benjamin [...] Glucose reference range is 70-99 mg/dL per [place] [employer] (ADA) addie rojas. Benjamin Henao [...] malnutrition documented in this encounter Care Teams Sales And Marketing Manager Relationship Specialty Start Date End Date Benjamin Henao MD PCP - General Internal Medicine 07/24/16 [address] [place] [address] documented as of this encounter
--- OUTSIDE RECORDS SUMMARY | 2022-03-05 07:53 | XMS_ITS | Encounter Summary ---
:1945 Author Organization [place] Address [address] [place] [address] Care Team Providers Name Role Phone Benjamin Henao MD Unavailable Benjamin Henao MD Primary Care Provider Encounter Details Date Type Department Care Team Description 02/26/2018 Records - [facility] CONVERSION Provider, Winter jacobsen Social History [...] on filedocumented in this encounter Care Teams Claim Examiner Relationship Specialty Start Date End Date Benjamin Henao MD PCP - General Internal Medicine 07/24/[address] [place] [address] Benjamin Henao MD Assigned PCP 10/05/[address] [place] [address] documented as of this encounter
--- OUTSIDE RECORDS SUMMARY | 2022-03-05 07:53 | XMS_ITS | Encounter Summary ---
:1945 Author Organization [place] Address [address] [place] [address] Care Team Providers Name Role Phone Benjamin Henao MD Primary Care Provider Reason for Visit Reason Comments Weight Problem 6MO post RNY with Dr. Grant Encounter Details Date Type Department Care Team Description 11/06/2017 Office Visit - M [facility] [place], High cho lesterol; [facility] and MD Santos Low vitamin D level; [facility] 2945 Type II diab etes mellitus (H); [facility] Postoperative malabsorption; [address] [place] [address] Hx of gastric bypass; [address] [place], [place] [phone] Social History Tobacco Use Types Packs/Day Years [...] lbs since surgery. Overall compliance with the [facility] Program has been good apart [...] ongoing use is desired (strong family vascular disease/AL hx in 3 of his brothers). The [...] of 500mcg daily. 4. Follow up with haul cane brakeman for 9 month visit. 5. Reduce the [...] 311 10/22/2017 Lab Results Component Value Date [id number] 40.2 10/22/2017 Lab Results Component Value Date HGBA1C 5.6 10/22/2017 Lab Results Component Value Date CHOL 210 (H) 10/22/2017 Lab Results Component Value Date PTH 42 10/22/2017 Lab Results Component Value Date FERRITIN 25 (L) 10/22/2017 Lab Results Component Value Date HDL 45 10/22/2017 Lab Results Component Value Date [id number] >2000 (H) 10/22/2017 Lab Results Component Value Date 37407 118 10/19/2016 Lab Results Component Value Date [...] Results Component Value Date 7597 47.9 10/19/2016 @[facility](vitamin a: 1)@ Patient Profile Social History Social [...] of life-long vitamin supplementation and life-long follow-up. Souheil was reminded that, to avoid marginal ulcers [...] nutritional or structural complications. Santos Krishna MD [facility]. 11/06/2017 10:39 AM documented [...] status documented in this encounter Care Teams Dressmaker Helper Relationship Specialty Start Date End Date Benjamin Henao MD PCP - General Internal Medicine 07/24/16 [address] [place] [address] documented as of this encounter
--- OUTSIDE RECORDS SUMMARY | 2022-03-05 07:53 | XMS_ITS | Encounter Summary ---
:1945 Author Organization [place] Address [address] [place] [address] Care Team Providers Name Role Phone Benjamin Henao MD Primary Care Provider Reason for Visit Reason Comments Follow Up med check Labs Only future Encounter Details Date Type Department Care Team Description [facility]2017 [facility] Type 2 diabetes mellitus without complication, unspecified halfway insulin use status (H); [facility] Jose R [place]E H/O gastric bypass; [address] Postsurgical malabsorption; [address] Intestinal malabsorption, unspecified ty pe; Drive [place], [place] S/[place] [phone] Social History Tobacco Use Types Packs/Day [...] CBC with platelets (10/22/2017 11:49 AM CDT) [facility] Method Time Signature WBC 12.8 (H) 4.0 - 11.0 10/22/2017 HEALTH thou/uL 12:32 PM CDT [facility] RBC Count 4.16 (L) 4.40 - 10/22/2017 HEALTH 6.20 12:32 PM CDT [facility] mill/uL [facility] Hemoglobin 11.9 (L) 14.0 - 10/22/2017 HEALTH 18.0 g/dL 12:32 PM CDT [facility] Hematocrit 37.1 (L) 40.0 - 10/22/2017 HEALTH 54.0 % 12:32 PM CDT [facility] MCV 89 80 - 100 10/22/2017 HEALTH fL 12:32 PM CDT [facility] MCH 28.5 27.0 - 10/22/2017 HEALTH 34.0 pg 12:32 PM CDT [facility] MCHC 32.0 32.0 - 10/22/2017 HEALTH 36.0 g/dL 12:32 PM CDT [facility] RDW 13.9 11.0 - 10/22/2017 HEALTH 14.5 % 12:32 PM CDT [facility] Platelet Count 311 140 - 440 10/22/2017 [facility] thou/uL 12:32 PM CDT [facility] Mean Platelet 9.0 7.0 - 10.0 10/22/2017 [facility] Volume fL 12:32 PM CDT [facility] Specimen Anatomical Collection Method / Collection Time Recei nona Time (Source) Location / Volume Laterality Blood specimen Venipuncture / 10/22/2017 11:49 018 (specimen) Unknown AM CDT 11:49 AM CDT Santos Krishna MD LAB - BLOOD ORDERABLES Performing Organization Address City/State/ZIP Code Phon e Number [facility]ORATORY [facility] [place] [address] 1875 [facility] [address] [place] [address] 25 CLINIC LABORATORY (ABNORMAL) Albumin Random Urine Quantitative (10/22/2017 11:49 AM CDT) [facility] gist Method Time Signature Microalbumin 1.49 0.00 [...] 6.0 10/22/2017 HEALTH % 12:41 PM CDT [facility] Specimen Anatomical Collection Method / Collection Time Recei nona Time (Source) Location / Volume Laterality Blood specimen Venipuncture / 10/22/2017 11:49 2 018 (specimen) Unknown AM CDT 11:49 AM CDT Santos Krishna MD LAB - BLOOD ORDERABLES Performing Organization Address City/[facility] Phon e Number [facility]ORATORY [facility] [place] [address] 1875 [facility] 1875 [place], [place] [address] CLINIC LABORATORY (ABNORMAL) Lipid Profile (10/22/2017 11:49 AM CDT) [facility] gist Method Time Signature Triglycerides 141 <=149 10/22/2017 HEALTH mg/dL 8:00 PM CDT [facility] Cholesterol 210 (H) <=199 10/22/2017 HEALTH mg/dL 8:00 PM CDT [facility] LDL Cholesterol 137 (H) <=129 10/22/2017 HEALTH Calculated mg/dL 8:00 PM CDT [facility] Direct Measure 45 >=40 10/22/2017 [facility] HDL mg/dL 8:00 PM CDT [facility] Patient Fasting > Yes 10/22/2017 HEALTH 8hrs? 8:00 PM CDT [facility] Specimen Anatomical Collection Method / Collection Time Recei nona Time (Source) Location / Volume Laterality Blood specimen Venipuncture / 10/22/2017 11:49 018 6:45 (specimen) Unknown AM CDT PM CDT Santos Krishna MD LAB - BLOOD ORDERABLES Performing Organization Address City/State/ZIP [facility] Phon [place] [address] [facility] [address] [facility] Vitamin B1 whole blood (10/22/2017 11:49 AM CDT) P athologist Signature Vitamin B1 118 70 - 180 10/26/2017 [facility] Whole Blood nmol/L 7:51 AM CDT LABORATORIES [...] Test developed and characteristics deter mined by [facility]. See Compliance Statement B : [facility]/CS Performed by [facility], [address] [place] [id number] www.[facility], Karlos Acosta MD, Lab. Director Specimen Anatomical Collection Method / Collection Time Recei nona Time (Source) Location / Volume Laterality Blood specimen Venipuncture / 10/22/2017 11:49 018 (specimen) Unknown AM CDT 11:55 PM CDT Santos Krishna MD LAB - BLOOD ORDERABLES Performing Organization Address City/State/ZIP Code Phon e Number [place], [place] [phone] [place] [phone] [employer] [address] [address] (ABNORMAL) Comprehensive metabolic panel (10/22/2017 11:49 AM CDT) Patholo gist Method Time Signature Sodium 139 136 - 145 10/22/2017 M [facility] mmol/L 8:00 PM CDT [facility] Potassium 4.5 3.5 - 5.0 10/22/2017 M [facility] mmol/L 8:00 PM CDT [facility] Chloride 106 98 - 107 10/22/2017 HEALTH mmol/L 8:00 PM CDT [facility] Carbon Dioxide 23 22 - 31 10/22/2017 [facility] (CO2) mmol/L 8:00 PM CDT [facility] Anion Gap 10 5 - 18 10/22/2017 M [facility] mmol/L 8:00 PM CDT [facility] Glucose 128 (H) 70 - 125 10/22/2017 HEALTH mg/dL 8:00 PM [facility] Urea Nitrogen 24 8 - 28 10/22/2017 [facility] mg/dL 8:00 PM [facility] Creatinine 1.00 0.70 - 10/22/2017 HEALTH 1.30 mg/dL 8:00 PM [facility] GFR Estimate If >60 >60 10/22/2017 HEALTH Black mL/min/1.7 8:[address] LABORATORY GFR Estimate >60 >60 10/22/2017 [facility] mL/min/1.7 8:[address] LABORATORY Bilirubin Total 0.7 0.0 - 1.0 10/22/2017 [facility] mg/dL 8:00 PM [facility] Calcium 10.1 8.5 - 10.5 10/22/2017 HEALTH mg/dL 8:00 PM [facility] Protein Total 7.0 6.0 - 8.0 10/22/2017 HEALTH g/dL 8:00 PM [facility] Albumin 3.8 3.5 - 5.0 10/22/2017 [facility] g/dL 8:00 PM [facility] Alkaline 107 45 - 120 10/22/2017 [facility] Phosphatase U/L 8:00 PM [facility] AST 18 0 - 40 U/L 10/22/2017 HEALTH 8:00 PM [facility] ALT 14 0 - 45 U/L 10/22/2017 HEALTH 8:00 PM [facility] Specimen Anatomical Collection Method / Collection Time Recei nona Time (Source) Location / Volume Laterality Blood specimen Venipuncture / 10/22/2017 11:49 018 6:45 (specimen) Unknown AM CDT PM CDT Narrative [facility] - 10/22/2017 8:00 PM T Fasting Glucose reference range is 70-99 mg/dL per [place] [employer] (ADA) addie rojas. Santos Krishna MD LAB - BLOOD ORDERABLES Performing Organization Address City/[facility]/ZIP Code Phon e Number [place] [address] [phone] [place] [address] LABORATORY [facility] [address] [place] [address], [facility] (ABNORMAL) Ferritin (10/22/2017 11:49 AM CDT) athologist Signature Ferritin 25 (L) 27 - 300 10/22/2017 HEALTH ng/mL 8:25 PM CDT [facility] Specimen Anatomical Collection Method / Collection Time Recei nona Time (Source) Location / Volume Laterality Blood specimen Venipuncture / 10/22/2017 11:49 2 018 6:41 (specimen) Unknown AM CDT PM CDT Santos Krishna MD LAB - BLOOD ORDERABLES Performing Organization Address City/[facility] Code Phon [place] [address] [phone] [place] [address] LABORATORY (ABNORMAL) Vitamin B12 (10/22/2017 11:49 AM CDT) athologist Signature Vitamin B12 >2,000 (H) 213 - 816 10/22/2017 HEALTH pg/mL 8:24 PM CDT [facility] Specimen Anatomical Collection Method / Collection Time Recei nona Time (Source) Location / Volume Laterality Blood specimen Venipuncture / 10/22/2017 11:49 2 018 6:40 (specimen) Unknown AM CDT PM CDT Santos Krishna MD LAB - BLOOD ORDERABLES Performing Organization Address City/[facility]/ZIP Code Phon [place] [address] [phone] [facility] [address] [address] [facility] Parathyroid Hormone Intact (10/22/2017 11:49 AM CDT) athologist Signature Parathyroid 42 10 - 86 10/22/2017 HEALTH Hormone Intact pg/mL 7:39 PM CDT [facility] Specimen Anatomical Collection Method / Collection Time Recei nona Time (Source) Location / Volume Laterality Blood specimen Venipuncture / 10/22/2017 11:49 2 018 6:45 (specimen) Unknown AM CDT PM CDT Santos Krishna MD LAB - BLOOD ORDERABLES Performing Organization Address City/[facility] Phon e Number [facility] [place] [address] [address] [facility] 1,25 Dihydroxyvitamin D (10/22/2017 11:49 AM CDT) athologist Signature Vitamin D, 40.2 30.0 - 10/23/2017 HEALTH Total 80.0 ng/mL 10:45 AM CDT [facility] (25-Hydroxy) [facility] Specimen Anatomical Collection Method / Collection Time Recei nona Time (Source) Location / Volume Laterality Blood specimen Venipuncture / 10/22/2017 11:49 2 018 6:41 (specimen) Unknown AM CDT PM CDT Narrative O LAB - 10/23/2017 10:45 AM CDT Deficiency <10.0 ng/mL Insufficiency 10.0-29.9 ng/mL Sufficiency 30.0-80.0 ng/mL Toxicity (possible) >100.0 ng/mL Santos Krishna MD LAB - BLOOD ORDERABLES Performing Organization Address City/[facility] Phon e Number [facility] [place] [address] [address] [facility] [address] [address], [facility] Zinc (10/22/2017 11:49 AM CDT) athologist Signature Zinc, 60 60 - 120 10/24/2017 [facility] Serum/Plasma ug/dL 5:51 PM CDT LABORATORIES Comment: [...] Test developed and characteristics deter mined by [facility]. See Compliance Statement B : [facility]/CS Performed by [facility], [address] [place] [address] www[facility], Karlos Acosta MD, Lab. Director Specimen Anatomical Collection Method / Collection Time Recei nona Time (Source) Location / Volume Laterality Blood specimen Venipuncture / 10/22/2017 11:49 018 (specimen) Unknown AM CDT 10:04 PM CDT Santos Krishna MD LAB - BLOOD ORDERABLES Performing Organization Address City/State/ZIP Code Phon e Number [facility] [employer] [place], [place] [phone] [place] [phone] [address] [address] Folate (10/22/2017 11:49 AM CDT) athologist Signature Folic Acid 18.2 >=3.5 ng/mL 10/22/2017 [facility] 9:57 PM CDT [facility] Specimen Anatomical Collection Method / Collection Time Recei nona Time (Source) Location / Volume Laterality Blood specimen Venipuncture / 10/22/2017 11:49 018 6:46 (specimen) Unknown AM CDT PM CDT Santos Krishna MD LAB - BLOOD ORDERABLES Performing Organization Address City/[facility]/ZIP Code Phon e Number [facility] [place] [address] [facility] [address] [place] [address] [facility] Vitamin A (10/22/2017 11:49 AM CDT) Analysis Performed At Patho logist Time Signature Vitamin A 0.54 0.30 - 10/25/2017 [facility] 1.20 mg/L 12:06 PM CDT LABORATORIES Vitamin A 0.07 0.00 - 10/25/2017 [facility] (Retinyl 0.10 mg/L 12:06 PM CDT LABORATORIES Palmitate) Vitamin A Normal 10/25/2017 [facility] Interp 12:06 PM CDT LABORATORIES Comment: Test developed and characteristics deter mined by [facility]. See Compliance Statement B : [facility]/CS Performed by [facility], [address] [place] [address] www[facility], Karlos Acosta MD, Lab. Director Specimen Anatomical Collection Method / Collection Time Recei nona Time (Source) Location / Volume Laterality Blood specimen Venipuncture / 10/22/2017 11:49 018 (specimen) Unknown AM CDT 10:35 PM CDT Santos Krishna MD LAB - BLOOD ORDERABLES Performing Organization Address City/State/ZIP Code Phon e Number [place], [place] [phone] [place] [phone] [address] [address] documented in this encounter Visit Diagnoses Diagnosis Type 2 diabetes mellitus without complic ation, unspecified halfway insulin use status H/O gastric bypass Bariatric surgery status Postsurgical malabsorption Other and unspecified postsurgical nonab sorption Intestinal malabsorption, unspecified ty pe S/P bariatric surgery Bariatric surgery status documented in this encounter Care Teams Lpn Or Medical Assistant Relationship Specialty Start Date End Date Benjamin Henao MD PCP - General Internal Medicine 07/24/16 0831 [place] [address] documented as of this encounter
--- OUTSIDE RECORDS SUMMARY | 2022-03-05 07:53 | XMS_ITS | Encounter Summary ---
:1945 Author Organization [place] Address [address] [place] [address] Care Team Providers Name Role Phone Benjamin Henao MD Primary Care Provider Encounter Details Date Type Department Care Team Description 10/24/2018 Records - [facility] Provider, [facility] Information Management [address] [facility] [address] [place] [address] Social History Tobacco Use Types Packs/Day Years [...] order was created through External Result Entry [facility] Consultation External Historical Provider OTHER documented in this encounter Visit Diagnoses Not on filedocumented in this encounter Care Teams Utility Clerk Relationship Specialty Start Date End Date Benjamin Henao MD PCP - General Internal Medicine 07/24/16 [address] [place] [address] documented as of this encounter
--- OUTSIDE RECORDS SUMMARY | 2022-03-05 07:53 | XMS_ITS | Encounter Summary ---
:1945 Author Organization [place] Address [address] [place] [address] Care Team Providers Name Role Phone Benjamin Henao MD Primary Care Provider Encounter Details Date Type Department Care Team Description 03/29/2020 Records - [facility] [address] [facility] [address] [place] [address] Social History Tobacco Use Types Packs/Day Years [...] nts EYE EXAM - HIM SCAN Routine 03/22/2020 Results for this procedure are i n the results section . documented in this encounter Results Eye Exam - HIM Scan (03/22/2020) P athologist Signature RETINOPATHY NEGATIVE Specimen (Source) Anatomical Location Collection Method / Collectio n Time Received Time / Laterality Volume Narrative Shandra Navarro - 03/22/2020 This order was created through External Result Entry [facility] Consultation External Historical Provider OTHER documented in this encounter Visit Diagnoses Not on filedocumented in this encounter Care Teams Shuttleless Loom Weaver Relationship Specialty Start Date End Date Benjamin Henao MD PCP - General Internal Medicine 07/24/16 [address] [place] [address] documented as of this encounter
--- OUTSIDE RECORDS SUMMARY | 2022-03-05 07:53 | XMS_ITS | Encounter Summary ---
:1945 Author Organization [place] Address [address] [place] [address] Care Team Providers Name Role Phone Benjamin Henao MD Primary Care Provider Reason for Visit Reason Comments Medication Refill Encounter Details Date Type Department Care Team Description 09/24/2018 [facility] Medicat ion Refill [facility] and MD [facility] [address] [place] [phone] Social History Tobacco Use Types Packs/Day Years [...] level documented in this encounter Care Teams Hemodialysis Patient Care Specialist Relationship Specialty Start Date End Date Benjamin Henao MD PCP - General Internal Medicine 07/24/16 1825 [place], [place] [phone] documented as of this encounter
--- OUTSIDE RECORDS SUMMARY | 2022-03-05 07:53 | XMS_ITS | Encounter Summary ---
:1945 Author Organization [place] Address [address] [place] [address] Care Team Providers Name Role Phone Benjamin Henao MD Unavailable Benjamin Henao MD Primary Care Provider Encounter Details Date Type Department Care Team Description 03/11/2019 Records - [facility] CONVERSION Provider, Winter jacobsen Social History [...] on filedocumented in this encounter Care Teams Loft Worker Pile Driving Relationship Specialty Start Date End Date Benjamin Henao MD PCP - General Internal Medicine 07/24/[address] [place] [address] Benjamin Henao MD Assigned PCP 10/05/[address] [place] [address] documented as of this encounter
--- OUTSIDE RECORDS SUMMARY | 2022-03-05 07:53 | XMS_ITS | Encounter Summary ---
:1945 Author Organization [place] Address [address] [place] [address] Care Team Providers Name Role Phone Benjamin Henao MD Unavailable Benjamin Henao MD Primary Care Provider Encounter Details Date Type Department Care Team Description 11/10/2018 Records - [facility] CONVERSION Provider, Winter jacobsen Social History [...] on filedocumented in this encounter Care Teams Sonographer Relationship Specialty Start Date End Date Benjamin Henao MD PCP - General Internal Medicine 07/24/[address] [place] [address] Benjamin Henao MD Assigned PCP 10/05/[address] [place] [address] documented as of this encounter
--- OUTSIDE RECORDS SUMMARY | 2022-03-05 07:53 | XMS_ITS | Encounter Summary ---
:1945 Author Organization [place] Address [address] [place] [address] Care Team Providers Name Role Phone Benjamin Henao MD Primary Care Provider Reason for Visit Reason Comments Nutrition Counseling Encounter Details Date Type Department Care Team Description 01/08/2018 Office Visit - M [facility] Provider, H/O preeti sarah bypass; [facility] and Historical Obesity ( BMI 30-39.9); Bariatrics Care Dietary coun seling; [place] Type 2 diabetes mellitus wit hout complication, unspecified custodial insulin use status (H) [address] [facility] [address] [place] [address] Social History Tobacco Use Types [...] iron 2x/day, calcium citrate 400-600 mg 2x/day, 8035-9432 mcg of Sublingual B-12 daily, and 5000 [...] 2x/day, calcium citrate 400- 600 mg 2x/day, 3157-3124 mcg of Sublingual B-12 daily, and 5000 [...] 2 diabetes mellitus without complic ation, unspecified custodial insulin use status documented in this encounter Care Teams Storm Chaser Relationship Specialty Start Date End Date Benjamin Henao MD PCP - General Internal Medicine 07/24/16 [address] [place] [address] documented as of this encounter
--- OUTSIDE RECORDS SUMMARY | 2022-03-05 07:53 | XMS_ITS | Encounter Summary ---
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 documented in this encounter Progress Notes Benjamin Henao - 12/23/2018 12:40 PM CDT ASSESSMENT and [...] reflex to Culture (12/23/2018 12:50 PM CDT) [facility] Method Time Signature Color Urine Yellow Colorless, 12/23/2018 [facility] Yellow, 1:04 PM CDT [facility] Straw, [facility] Light LABORATORY Yellow Appearance Urine Clear Clear 12/23/2018 HEALTH 1:04 PM [facility]ORY Glucose Urine Negative Negative 12/23/2018 HEALTH 1:04 PM [facility] Bilirubin Urine Negative Negative 12/23/2018 [facility] 1:04 PM [facility] Ketones Urine Negative Negative 12/23/2018 HEALTH 1:04 PM [facility] Specific [place] 1.015 1.005 - 12/23/2018 [facility] Urine 1.030 1:04 PM [facility] Blood Urine Large (A) Negative 12/23/2018 HEALTH 1:04 PM [facility] pH Urine 5.0 5.0 - 8.0 12/23/2018 HEALTH 1:04 PM [facility] Protein Albumin Negative Negative 12/23/2018 [facility] Urine mg/dL 1:04 PM [facility] Urobilinogen 0.2 E.U./dL 0.2 12/23/2018 [facility] Urine E.U./dL, 1:04 PM [facility] 1.0 E.U./dL [facility] LABOR[facility]ORY Nitrite Urine Negative Negative 12/23/2018 HEALTH 1:04 PM [facility] Leukocyte Negative Negative 12/23/2018 [facility] Esterase Urine 1:04 PM [facility] Bacteria Urine None Seen None Seen 12/23/2018 HEALTH hpf 1:04 PM [facility] RBC Urine 50-100 (A) None Seen, 12/23/2018 HEALTH 0-2 hpf 1:04 PM [facility] WBC Urine 0-5 None Seen, 12/23/2018 M [facility] 0-5 hpf 1:04 PM CDT [facility] LAB[facility] Squamous 5-10 (A) None Seen, 12/23/2018 M [facility] Epithelials 0-5 lpf 1:04 PM CDT [facility] LABORATORY Specimen Anatomical Collection Method Collection Time Receive d Time (Source) Location / / Volume Laterality Urine specimen Non-blood 12/23/2018 12:50 9 (specimen) Collection / PM CDT 12:50 PM CDT Unknown Narrative [facility] - 12/23/2018 1:04 PM CDT UC not indicated Benjamin Henao MD LAB - URINE ORDERABLES Performing Organization Address City/State/ZIP Code Phon e Number [facility] Clinic - [place], [place] [address] [place] [address] CLINIC LABORATORY [facility] [address] [place] [address] documented in this encounter Visit Diagnoses Diagnosis Dysuria Low vitamin D level documented in this encounter Care Teams Shoe Salesman Relationship Specialty Start Date End Date Benjamin Henao MD PCP - General Internal Medicine 07/24/[address] [place] [address] documented as of this encounter
--- OUTSIDE RECORDS SUMMARY | 2022-03-05 07:53 | XMS_ITS | Encounter Summary ---
:1945 Author Organization [facility] Address [address] [place] [address] Care Team Providers Name Role Phone Benjamin Henao MD Primary Care Provider Reason for Visit Reason Comments Orders Encounter Details Date Type Department Care Team Description 05/03/2020 Communication - [facility] Benjamin Henao MD Orders [address] [address] [place], [place] [phone] (Wo rk) [address] [phone] Social History Tobacco Use Types Packs/Day Years [...] change lab orders to future. Thank you RD [employer] documented in this encounter Plan of Treatment Not on filedocumented as of this encounter Visit Diagnoses Not on filedocumented in this encounter Care Teams Station Mechanic Helper Relationship Specialty Start Date End Date Benjamin Henao MD PCP - General Internal Medicine 07/24/16 [address] [place] [address] documented as of this encounter
--- OUTSIDE RECORDS SUMMARY | 2022-03-05 07:53 | XMS_ITS | Encounter Summary ---
:1945 Author Organization [facility] Address [address] [place] [address] Care Team Providers Name Role Phone Benjamin Henao MD Primary Care Provider Reason for Visit Reason Comments Hernia Incisiona Hernia Encounter Details Date Type Department Care Team Description 01/07/2019 Office Visit - [facility] Donato Raines Incisjean onal hernia, [facility] and DO Eliud without obstruction Bariatrics Care [address] [place] [address] [address] [place] [address] [place] [address] Social History Tobacco Use Types Packs/Day [...] Past Surgical History: Procedure Laterality Date ??? TN LAP GASTRIC BYPASS/ELIZABETH-EN-Y N/A 05/01/2017 Procedure: LAPAROSCOPIC ELIZABETH-EN-Y BASTRIC BYPASS CONVERTED TO OPEN; SPLENECTOMY; Surgeon: Naresh Grant MD; Location: [facility]; Service: General ??? SPLENECTOMY as a [...] to follow-up accordingly. Georges Raines D.O., FACS [phone] [facility] Department of Surgery documented in this encounter Miscellaneous Notes Patient Instructions - HE - Historical Provider - 01/07/2019 10:10 AM CDT Hernia education & surgery packet provided to ptKevin La [facility] P: [phone] F: [phone] documented in this encounter Plan of Treatment Not on filedocumented as of this encounter Visit Diagnoses Diagnosis Incisional hernia, without obstruction o r gangrene Incisional hernia without mention of obs truction or gangrene documented in this encounter Care Teams Visual Designer Relationship Specialty Start Date End Date Benjamin Henao MD PCP - General Internal Medicine 07/24/16 244[address] [place] [address] documented as of this encounter
--- OUTSIDE RECORDS SUMMARY | 2022-03-05 07:53 | XMS_ITS | Encounter Summary ---
:1945 Author Organization [facility] Address [address] [place] [address] Care Team Providers Name Role Phone Benjamin Henao MD Unavailable Benjamin Henao MD Primary Care Provider Encounter Details Date Type Department Care Team Description 10/20/2020 Records - [facility] Centralized Provider, [facility] Scheduling [facility] [place] [address] Social History Tobacco Use Types [...] 2:23 PM Encounter Date: 10/20/2020 Status: Signed Technical Operations Vice President: Alejandra Winter Error documented in this encounter Plan of Treatment Not on filedocumented as of this encounter Visit Diagnoses Not on filedocumented in this encounter Care Teams Adjuster Arbitrator Relationship Specialty Start Date End Date Benjamin Henao MD PCP - General Internal Medicine 07/24/[address] [place] [address] Benjamin Henao MD Assigned PCP 10/05/[address] [place] [address] documented as of this encounter
--- OUTSIDE RECORDS SUMMARY | 2022-03-05 07:53 | XMS_ITS | Encounter Summary ---
:1945 Author Organization [facility] Address [address] [place] [address] Care Team Providers Name Role Phone Benjamin Henao MD Unavailable Benjamin Henao MD Primary Care Provider Encounter Details Date Type Department Care Team Description 03/22/2020 Records - [facility] CONVERSION Provider, Winter jacobsen Social History Tobacco [...] on filedocumented in this encounter Care Teams Sample Prep Technician Relationship Specialty Start Date End Date Benjamin Henao MD PCP - General Internal Medicine 07/24/[address] [place] [address] Benjamin Henao MD Assigned PCP 10/05/[address] [place] [address] documented as of this encounter
--- OUTSIDE RECORDS SUMMARY | 2022-03-05 07:53 | XMS_ITS | Encounter Summary ---
:1945 Author Organization [facility] Address [address] [place] [address] Care Team Providers Name Role Phone Benjamin Henao MD Primary Care Provider Encounter Details Date Type Department Care Team Description 04/14/2018 Ambulatory - [facility] Postsurgic al malabsorption; [facility] bariatri c surgery; [facility] Intestinal malabsorption, un specified [address] [place] [address] Social History Tobacco Use Types [...] 04/14/2018 9:20 R esults for this AM [facility] procedure are i n the results section. ZINC Routine 04/14/2018 9:20 Results for this [facility] procedure are i n the results section. VITAMIN B1 WHOLE BLOOD Routine 04/14/2018 9:20 Re sults for this AM [facility] procedure are i n the results section. VITAMIN A Routine 04/14/2018 9:20 Results for this [facility] procedure are i n the results section. PARATHYROID HORMONE Routine 04/14/2018 9:20 Resul ts for this INTACT [facility] procedure are i n the results section. HEMOGLOBIN A1C Routine 04/14/2018 9:20 Results fo r this AM [facility] procedure are i n the results section. FOLATE Routine 04/14/2018 9:20 Results for this [facility] procedure are i n the results section. VITAMIN B12 Routine 04/14/2018 9:20 Results for this [facility] procedure are i n the results section. CBC WITH PLATELETS Routine 04/14/2018 9:20 Result s for this AM [facility] procedure are i n the results section. LIPID PROFILE Routine 04/14/2018 9:20 Results for this [facility] procedure are i n the results section. FERRITIN Routine 04/14/2018 9:20 Results for this AM [facility] procedure are i n the results section. COMPREHENSIVE METABOLIC Routine 04/14/2018 9:20 R esults for this PANEL [facility] procedure are i n the results section. documented in this encounter Results Hemoglobin A1c (04/14/2018 9:20 AM [facility]) athologist Signature Hemoglobin A1C 5.3 3.5 - 6.0 04/14/2018 HEALTH % 9:[address] [facility] Specimen Anatomical Collection Method / Collection Time Recei nona Time (Source) Location / Volume Laterality Blood specimen Venipuncture / 04/14/2018 9:20 04/14/20 18 9:20 (specimen) Unknown [facility] Santos Krishna MD LAB - BLOOD ORDERABLES Performing Organization Address City/State/ZIP Code Phon e Number [place] [address] [place] [phone] CLINIC LABORATORY Vitamin B1 whole blood (04/14/2018 9:20 AM [facility]) athologist Signature Vitamin B1 123 70 - 180 04/17/2018 [facility] Whole Blood nmol/L 9:23 AM [facility] LABORATORIES Level Comment: INTERPRETIVE INFORMATION: Vitamin B1, Wh ole Blood This assay measures the concentration of thiamine diphosphate (TDP), the primary active form of vitami n B1. Approximately 90 percent of vitamin B1 present in whole b lood is TDP. Thiamine and thiamine monophosphate, which comprise t he remaining 10 percent, are not measured. Test developed and characteristics deter mined by [employer]. See Compliance Statement B : [email or web address] Performed by [employer], [address] [place] [address] [email or web address], Karlos Acosta MD, Lab. Director Specimen Anatomical Collection Method / Collection Time Recei nona Time (Source) Location / Volume Laterality Blood specimen Venipuncture / 04/14/2018 9:20 04/16/20 18 6:04 (specimen) Unknown [facility] Santos Krishna MD LAB - BLOOD ORDERABLES Performing Organization Address City/[facility]/ZIP [facility] Phon e Number [email or web address] [facility] [email or web address] [place], [place] [phone] [place] [phone] [employer] [address] [phone] (ABNORMAL) Vitamin B12 (04/14/2018 9:20 AM [facility]) P athologist Signature Vitamin B12 1,220 (H) 213 - 816 04/14/2018 [facility] pg/mL 3:00 PM [facility] Specimen Anatomical Collection Method / Collection Time Recei nona Time (Source) Location / Volume Laterality Blood specimen Venipuncture / 04/14/2018 9:20 04/14/20 18 1:48 (specimen) Unknown [facility] Santos Krishna MD LAB - BLOOD ORDERABLES Performing Organization Address City/[facility]/ZIP Code Phon [place] [address] [address] [facility] (ABNORMAL) CBC with platelets (04/14/2018 9:20 AM [facility]) Patholo gist Method Time Signature WBC 10.7 4.0 - 11.0 04/14/2018 [facility] thou/uL 9:39 AM [facility] RBC Count 4.22 (L) 4.40 - 04/14/2018 HE[facility] 6.20 9:39 AM [facility] mill/uL [facility] Hemoglobin 12.5 (L) 14.0 - 04/14/2018 HE[facility] 18.0 g/dL 9:39 AM [facility] Hematocrit 39.3 (L) 40.0 - 04/14/2018 HEALTH 54.0 % 9:39 AM [facility] MCV 93 80 - 100 04/14/2018 HE[facility] fL 9:39 AM [facility] MCH 29.7 27.0 - 04/14/2018 HE[facility] 34.0 pg 9:39 AM [facility] MCHC 31.8 (L) 32.0 - 04/14/2018 HEALTH 36.0 g/dL 9:39 AM [facility] RDW 12.1 11.0 - 04/14/2018 HEALTH 14.5 % 9:39 AM [facility] Platelet Count 261 140 - 440 04/14/2018 HE[facility] thou/uL 9:39 AM [facility] Mean Platelet 9.0 7.0 - 10.0 04/14/2018 HEALTH Volume fL 9:39 AM [facility] Specimen Anatomical Collection Method / Collection Time Recei nona Time (Source) Location / Volume Laterality Blood specimen Venipuncture / 04/14/2018 9:20 04/14/20 18 9:20 (specimen) Unknown [facility] Santos Krishna MD LAB - BLOOD ORDERABLES Performing Organization Address City/State/ZIP Code Phon e Number [facility] [address]75 [facility] [address] [place] [phone] CLINIC LABORATORY Parathyroid Hormone Intact (04/14/2018 9:20 AM [facility]) P athologist Signature Parathyroid 33 10 - 86 04/14/2018 HEALTH Hormone Intact pg/mL 2:[address] [facility] Specimen Anatomical Collection Method / Collection Time Recei nona Time (Source) Location / Volume Laterality Blood specimen Venipuncture / 04/14/2018 9:20 04/14/20 18 1:48 (specimen) Unknown [facility] Santos Krishna MD LAB - BLOOD ORDERABLES Performing Organization Address [facility] [place] [address] [address] [facility] 1,25 Dihydroxyvitamin D (04/14/2018 9:20 AM [facility]) athologist Signature Vitamin D, 36.4 30.0 - 04/15/2018 [facility] Total 80.0 ng/mL 8:16 AM [facility] (25-Hydroxy) [facility] Specimen Anatomical Collection Method / Collection Time Recei nona Time (Source) Location / Volume Laterality Blood specimen Venipuncture / 04/14/2018 9:20 04/14/20 18 1:48 (specimen) Unknown [facility] Narrative [facility] - 04/15/2018 8:16 AM [facility] Deficiency <10.0 ng/mL Insufficiency 10.0-29.9 ng/mL Sufficiency 30.0-80.0 ng/mL Toxicity (possible) >100.0 ng/mL Santos Krishna MD LAB - BLOOD ORDERABLES Performing Organization Address [facility] Phon [place] [address] [phone] [address] [facility] [address] [place] [address], [facility] Zinc (04/14/2018 9:20 AM [facility]) athologist Signature Zinc, 71 60 - 120 04/16/2018 [facility] Serum/Plasma ug/dL 3:39 PM [facility] LABORATORIES Comment: INTERPRETIVE INFORMATION: Zinc, Serum or Plasma Circulating zinc concentrations are depe ndent on albumin status and are depressed with malnutrition. Zin c may also be lowered with infection, inflammation, stress, oral co ntraceptives, and . Zinc may be elevated with zin c supplementation or fasting. Elevated zinc concentrations ma y interfere with copper absorption. Test developed and characteristics deter mined by [employer]. See Compliance Statement B : [email or web address]/CS Performed by [employer], [address] [place] [address] [email or web address], Karlos Acosta MD, Lab. Director Specimen Anatomical Collection Method / Collection Time Recei nona Time (Source) Location / Volume Laterality Blood specimen Venipuncture / 04/14/2018 9:20 04/16/20 18 2:57 (specimen) Unknown [facility] Santos Krishna MD LAB - BLOOD ORDERABLES Performing Organization Address [facility] Phon e Number [facility] [place], [place] [phone] [place] [phone] [email or web address] [address] [phone] Folate (04/14/2018 9:20 AM [facility]) P athologist Signature Folic Acid >20.0 >=3.5 ng/mL 04/14/2018 [facility] 3:09 PM [facility] Specimen Anatomical Collection Method / Collection Time Recei nona Time (Source) Location / Volume Laterality Blood specimen Venipuncture / 04/14/2018 9:20 04/14/20 18 1:49 (specimen) Unknown [facility] Santos Krishna MD LAB - BLOOD ORDERABLES Performing Organization Address City/[facility] [place] [address] [phone] [address] [facility] Vitamin A (04/14/2018 9:20 AM [facility]) Analysis Performed At Patho logist Time Signature Vitamin A 0.75 0.30 - 04/17/2018 [facility] 1.20 mg/L 10:20 AM [facility] LABORATORIES Vitamin A 0.06 0.00 - 04/17/2018 [facility] (Retinyl 0.10 mg/L 10:20 AM [facility] LABORATORIES Palmitate) Vitamin A Normal 04/17/2018 [facility] Interp 10:20 AM [facility] LABORATORIES Comment: Test developed and characteristics deter mined by [employer]. See Compliance Statement B : [email or web address]/CS Performed by [employer], [address] [place] [address] [email or web address], Karlos Acosta MD, Lab. Director Specimen Anatomical Collection Method / Collection Time Recei nona Time (Source) Location / Volume Laterality Blood specimen Venipuncture / 04/14/2018 9:20 04/16/20 18 5:34 (specimen) Unknown AM [facility] Santos Krishna MD LAB - BLOOD ORDERABLES Performing Organization Address City/[facility]/ZIP Code Phon e Number [facility] [email or web address] [place], [place] [phone] [place] [phone] [employer] [address] [phone] Lipid Profile (04/14/2018 9:20 AM [facility]) [facility] Method Time Signature Triglycerides 123 <=149 04/14/2018 HEALTH mg/dL 3:[address] [facility] Cholesterol 177 <=199 04/14/2018 [facility] mg/dL 3:[address] [facility] LDL Cholesterol 96 <=129 04/14/2018 [facility] Calculated mg/dL 3:[address] [facility] Direct Measure 56 >=40 04/14/2018 [facility] HDL mg/dL 3:[address] [facility] Patient Fasting > Unknown 04/14/2018 HEALTH 8hrs? 3:37 PM [facility] Specimen Anatomical Collection Method / Collection Time Recei nona Time (Source) Location / Volume Laterality Blood specimen Venipuncture / 04/14/2018 9:20 04/14/20 18 1:48 (specimen) Unknown [facility] Santos Krishna MD LAB - BLOOD ORDERABLES Performing Organization Address City/State/ZIP [facility] Phon [place] [address] [place] [address] [facility] (ABNORMAL) Comprehensive metabolic panel (04/14/2018 9:20 AM [facility]) [facility] Method Time Signature Sodium 137 136 - 145 04/14/2018 HEALTH mmol/L 3:[address] [facility] Potassium 4.5 3.5 - 5.0 04/14/2018 [facility] mmol/L 3:[address] [facility] Chloride 106 98 - 107 04/14/2018 [facility] mmol/L 3:[address] [facility] Carbon Dioxide 20 (L) 22 - 31 04/14/2018 [facility] (CO2) mmol/L 3:[address] [facility] Anion Gap 11 5 - 18 04/14/2018 [facility] mmol/L 3:[address] [facility] Glucose 153 (H) 70 - 125 04/14/2018 [facility] mg/dL 3:[address] [facility] Urea Nitrogen 27 8 - 28 04/14/2018 [facility] mg/dL 3:[address] [facility] Creatinine 1.18 0.70 - 04/14/2018 HEALTH 1.30 mg/dL 3:[address] [facility] GFR Estimate If >60 >60 04/14/2018 HEALTH Black mL/min/1.7 3:[address] LABORATORY GFR Estimate >60 >60 04/14/2018 HE[facility] mL/min/1.7 3:[address] LABORATORY Bilirubin Total 0.7 0.0 - 1.0 04/14/2018 HEALTH mg/dL 3:[address] [facility] Calcium 9.7 8.5 - 10.5 04/14/2018 HE[facility] mg/dL 3:[address] [facility] Protein Total 7.0 6.0 - 8.0 04/14/2018 HE[facility] g/dL 3:[address] [facility] Albumin 3.8 3.5 - 5.0 04/14/2018 [facility] g/dL 3:37 PM [facility] Alkaline 89 45 - 120 04/14/2018 [facility] Phosphatase U/L 3:37 PM [facility] AST 23 0 - 40 U/L 04/14/2018 HEALTH 3:37 PM [facility] ALT 21 0 - 45 U/L 04/14/2018 [facility] 3:37 PM [facility] Specimen Anatomical Collection Method / Collection Time Recei nona Time (Source) Location / Volume Laterality Blood specimen Venipuncture / 04/14/2018 9:20 04/14/20 18 1:48 (specimen) Unknown AM [facility] PM [facility] Narrative [facility] - 04/14/2018 3:37 PM [facility] Fasting Glucose reference range is 70-99 mg/dL per [place] [employer] (ADA) addie rojas. Santos Krishna MD LAB - BLOOD ORDERABLES Performing Organization Address City/[facility]/ZIP [facility] Phon e Number [facility] [id number] [place] [address]'S LABORATORY [facility] [address] [place] [address], [facility] Ferritin (04/14/2018 9:20 AM [facility]) P athologist Signature Ferritin 35 27 - 300 04/14/2018 [facility] ng/mL 2:54 PM [facility] Specimen Anatomical Collection Method / Collection Time Recei nona Time (Source) Location / Volume Laterality Blood specimen Venipuncture / 04/14/2018 9:20 04/14/20 18 1:48 (specimen) Unknown AM [facility] PM [facility] Santos Krishna MD LAB - BLOOD ORDERABLES Performing Organization Address City/[facility]/ZIP [facility] Phon e Number [facility] [address] [address] documented in this encounter Visit Diagnoses Diagnosis 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
--- OUTSIDE RECORDS SUMMARY | 2022-03-05 07:53 | XMS_ITS | Encounter Summary ---
:1945 Author Organization [facility] Address [address] [place] [address] Care Team Providers Name Role Phone Benjamin Henao MD Primary Care Provider Encounter Details Date Type Department Care Team Description 10/29/2017 Communication - [facility] Santos Krishna, [facility] and [facility] [address] [place] [phone] Social History Tobacco Use Types Packs/Day Years [...] on filedocumented in this encounter Care Teams Leadership Program Associate Relationship Specialty Start Date End Date Benjamin Henao MD PCP - General Internal Medicine 07/24/16 [address] [place] [address] documented as of this encounter
--- OUTSIDE RECORDS SUMMARY | 2022-03-05 07:54 | XMS_ITS | Encounter Summary ---
:1945 Author Organization [facility] Address [address] [place] [address] Care Team Providers Name Role Phone Benjamin Henao MD Primary Care Provider Encounter Details Date Type Department Care Team Description 05/14/2017 Office Visit - [facility] Naresh Grant MD Type 2 diabetes mellitus without complic ation, unspecified joint terminal attack controller insulin use status (H); [facility] and [facility] [address] Obstructive sleep apnea; [facility] [place], [place] S/P gastric bypass; [address] [address] Postoperative wound infection, [facility] [address] [place], [place] (Work) [phone] Social History Tobacco Use [...] 129.3 kg (285 lb) 05/14/2017 10:17 AM COIL CONNECTOR REPAIRER Height 172.7 cm (5' 8) 05/14/2017 10:17 AM COIL CONNECTOR REPAIRER Body Mass Index 43.33 05/14/2017 10:17 AM COIL CONNECTOR REPAIRER documented in this encounter Progress Notes Lorna [...] breath and low energy. Lorna Krishnamurthy RN CONNECTOR REPAIRER Naresh Grant MD - 05/14/2017 10:15 AM [...] 6 mm 31G 1 mL syringe - [facility] [id number] - dispense 1 case, refill PRN for [...] here in 1 week. Naresh Grant MD [facility] Department of Surgery CONNECTOR REPAIRER documented in this encounter Plan of Treatment Not on filedocumented as of this encounter Procedures Procedure Name Priority Date/Time Associated Comments Diagnosis CBC WITH PLATELETS Routine 05/14/2017 11:09 Resul ts for this AND DIFFERENTIAL AM COIL CONNECTOR REPAIRER procedure a re in the results section. documented in this encounter Results (ABNORMAL) CBC WITH PLATELETS AND DIFFERENTIAL (05/14/2017 11:09 AM COIL CONNECTOR REPAIRER) [facility] gist Method Time Signature WBC 14.3 (H) 4.0 - 05/14/2017 [facility] 11.0 12:07 PM COIL CONNECTOR REPAIRER [facility] RBC Count 3.90 (L) 4.40 - 05/14/2017 [facility] 6.20 12:07 PM COIL CONNECTOR REPAIRER [facility] Hemoglobin 10.6 (L) 14.0 - 05/14/2017 [facility] 18.0 g/dL 12:07 PM [facility]QuerydayNY[facility] BROOKLYNStartupbootcamp FinTechS LAB[facility] Hematocrit 33.4 (L) 40.0 - 05/14/2017 [facility] 54.0 % 12:07 PM COIL CONNECTOR REPAIRER [facility]day[facility] MCV 86 80 - 100 05/14/2017 [facility] fL 12:07 PM COIL CONNECTOR REPAIRER [facility] MCH 27.2 27.0 - 05/14/2017 [facility] 34.0 pg 12:07 PM [facility] MCHC 31.7 (L) 32.0 - 05/14/2017 [facility] 36.0 g/dL 12:07 PM [facility]day[facility] RDW 14.8 (H) 11.0 - 05/14/2017 [facility] 14.5 % 12:07 PM COIL CONNECTOR REPAIRER [facility]day[facility] Platelet Count 754 (H) 140 - 440 05/14/2017 [facility] th/uL 12:07 PM COIL CONNECTOR REPAIRER [facility] Mean Platelet 10.0 8.5 - 05/14/2017 [facility] Volume 12.5 fL 12:07 PM COIL CONNECTOR REPAIRER WeSpireLOU[facility]ENTERQuerydayTruly Wireless'[facility] % Neutrophils 72 (H) 50 - 70 % 05/14/2017 [facility] 12:07 PM COIL CONNECTOR REPAIRER [facility] LabsCAR[facility] % Lymphocytes 17 (L) 20 - 40 % 05/14/2017 [facility] 12:07 PM [facility] % Monocytes 9 2 - 10 % 05/14/2017 [facility] 12:07 PM [facility] % Eosinophils 0 0 - 6 % 05/14/2017 [facility] 12:07 PM [facility] % Basophils 1 0 - 2 % 05/14/2017 [facility] 12:07 PM [facility] Absolute 10.2 (H) 2.0 - 7.7 05/14/2017 [facility] Neutrophils thou/uL 12:07 PM COIL CONNECTOR REPAIRER [facility] Absolute 2.5 0.8 - 4.4 05/14/2017 [facility] Lymphocytes thou/uL 12:07 PM [employer] Absolute 1.3 (H) 0.0 - 0.9 05/14/2017 [facility] Monocytes thou/uL 12:07 PM [facility] Eosinophils 0.0 0.0 - 0.4 05/14/2017 [facility] Absolute thou/uL 12:07 PM COIL CONNECTOR REPAIRER [facility] Absolute 0.2 0.0 - 0.2 05/14/2017 [facility] Basophils thou/uL 12:07 PM COIL CONNECTOR REPAIRER [facility] Specimen Anatomical Collection Method Collection Time Receive d Time (Source) Location / / Volume Laterality Blood specimen 05/14/2017 11:09 8 (specimen) AM COIL CONNECTOR REPAIRER 11:48 AM COIL CONNECTOR REPAIRER Naresh Grant MD LAB - BLOOD ORDERABLES Performing Organization Address City/State/ZIP Code Phon [place] [address] [address] [facility] documented in this encounter Visit Diagnoses Diagnosis Type 2 diabetes mellitus without complic ation, unspecified joint terminal attack controller insulin use status Obstructive sleep apnea Obstructive sleep apnea (adult) (pediatr ic) S/P gastric bypass Bariatric surgery status Postoperative wound infection, subsequen t encounter documented in this encounter Care Teams Executive Vice President And Chief Financial Officer Relationship Specialty Start Date End Date Benjamin Henao MD PCP - General Internal Medicine 07/24/16 [address] [place] [address] documented as of this encounter
--- OUTSIDE RECORDS SUMMARY | 2022-03-05 07:54 | XMS_ITS | Encounter Summary ---
:1945 Author Organization [place] Address [address] [place] [address] Care Team Providers Name Role Phone Benjamin Henao MD Unavailable Benjamin Henao MD Primary Care Provider Encounter Details Date Type Department Care Team Description 2017 Records - [facility] CONVERSION Provider, Winter jacobsen Social History [...] on filedocumented in this encounter Care Teams Feather Cutting Machine Feeder Relationship Specialty Start Date End Date Benjamin Henao MD PCP - General Internal Medicine 07/24/[address] [place] [address] Benjamin Henao MD Assigned PCP 10/05/[address] [place] [address] documented as of this encounter
--- OUTSIDE RECORDS SUMMARY | 2022-03-05 07:54 | XMS_ITS | Encounter Summary ---
:1945 Author Organization [place] Address [address] [place] [address] Care Team Providers Name Role Phone Benjamin Henao MD Primary Care Provider Reason for Visit Reason Comments Diabetes Encounter Details Date Type Department Care Team Description 06/03/2017 [facility] Santos Krishna Diabe [facility] Surgery Clinic and [facility]rics Care [address] [place] [phone] Social History Tobacco Use Types Packs/Day Years [...] on filedocumented in this encounter Care Teams Display Designer Relationship Specialty Start Date End Date Benjamin Henao MD PCP - General Internal Medicine 07/24/16 [address] [place] [address] documented as of this encounter
--- OUTSIDE RECORDS SUMMARY | 2022-03-05 07:54 | XMS_ITS | Encounter Summary ---
:1945 Author Organization [place] Address [address] [place] [address] Care Team Providers Name Role Phone Benjamin Henao MD Primary Care Provider Reason for Visit Reason Comments Weight Problem Pt Ed Encounter Details Date Type Department Care Team Description 04/17/2017 [facility] Gayatri Weber, Surgery Clinic and RN Bariatrics Care [address] [phone] Social History Tobacco Use Types [...] 143.8 kg (317 lb) 04/17/2017 3:00 PM EMAIL MARKETING ASSISTANT Height 172.7 cm (5' 8) 04/17/2017 3:00 PM EMAIL MARKETING ASSISTANT Body Mass Index 48.2 04/17/2017 3:00 PM EMAIL MARKETING ASSISTANT documented in this encounter Progress Notes Gayatri [...] pre-op H&P and testing done 04/08/2017 at [facility]. Gayatri Weber RN, [facility]ariatric Care P [phone] F [phone] L MARKETING ASSISTANT documented in this encounter Plan of Treatment Not on filedocumented as of this encounter Visit Diagnoses Not on filedocumented in this encounter Care Teams Anesthesia Associate Relationship Specialty Start Date End Date Benjamin Henao MD PCP - General Internal Medicine 07/24/[address] [place] [address] documented as of this encounter
--- OUTSIDE RECORDS SUMMARY | 2022-03-05 07:54 | XMS_ITS | Encounter Summary ---
:1945 Author Organization [place] Address [address] [place] [address] Care Team Providers Name Role Phone Benjamin Henao MD Primary Care Provider Encounter Details Date Type Department Care Team Description 10/15/2017 [facility] Gayatri Weber Postsurgic al malabsorption; [facility] and Yaquelin RN Intestina l malabsorption, unspecified type; [facility] S/P bariatric surgery [address] [facility] [address] [place] [phone] Social History Tobacco Use Types Packs/Day Years Used Date Smoking Tobacco: Former Cigarettes Quit : 08/27/1989 Alcohol Use Standard Drinks/Week Comments Yes 0 (1 standard drink = 0.6 oz pure alcoho l) Sex Assigned at Date Recorded Not on file documented as of this encounter Progress Notes Gayatri Weber, RN - 10/15/2017 3:25 PM CDT 6 mos post op lab orders placed for patient in preparation for appointment with in October. 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
--- OUTSIDE RECORDS SUMMARY | 2022-03-05 07:54 | XMS_ITS | Encounter Summary ---
:1945 Author Organization [facility] Address [address] [place] [address]. [place] [address] Care Team Providers Name Role Phone Benjamin Henao MD Primary Care Provider Reason for Visit Reason Comments Fatigue Encounter Details Date Type Department Care Team Description 05/06/2017 Hospital Encounter [facility] Rj Fontana rtness of breath; DEPARTMENT E, Pleural effusion, left; [address] Mild anemia; [place] [id number] [phone] Social History Tobacco Use Types Packs/Day Years [...] 135.6 kg (299 lb) 05/06/2017 12:06 PM DELIVERY TABLE OPERATOR Height 172.7 cm (5' 8) 05/06/2017 12:06 PM DELIVERY TABLE OPERATOR Body Mass Index 45.46 05/06/2017 12:06 PM DELIVERY TABLE OPERATOR documented in this encounter Medications at Time [...] behalf by Abigail Weber, a trained medical claims manager. This document has been checked and approved by the attending provider. PAST MEDICAL HISTORY Past Surgical History: Procedure Laterality Date ??? MD LAP GASTRIC BYPASS/ELIZABETH-EN-Y N/A 05/01/2017 Procedure: LAPAROSCOPIC ELIZABETH-EN-Y BASTRIC BYPASS CONVERTED TO OPEN; SPLENECTOMY; Surgeon: Naresh Grant MD; Location: [facility]; Service: General ??? SPLENECTOMY as a result [...] 6 mm 31G 1 mL syringe - [facility] [id number] - dispense 1 case, refill PRN for [...] ms QTC CALCULATION (BEZET) 432 ms P [place] 18 degrees R AXIS -49 degrees T AXIS -16 degrees MUSE DIAGNOSIS Sinus rhythm Left anterior fascicular block Abnormal ECG When compared with ECG of 08-APR-2017 12:55, No significant change was found Confirmed by CATY REYEZ MD LOC:JN ([id number]) on 05/06/2017 3:22:26 PM EKG EKG reviewed [...] and 3D reconstructions were performed by the survey technologist. Dose reduction techniques were used. IV [...] and 3D reconstructions were performed by the survey technologist. Dose reduction techniques were used. IV [...] it is both accurate and complete. Rj Fontana MD 05/06/17 7863 VERY TABLE OPERATOR Alexsander Aranda MD - 05/06/2017 12:23 PM CST Report taken from Dr. Grant. Patient is postop recent Elizabeth-en-Y gastric bypass. 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 Patient was seen in clinic today and was dyspneic. Referred to the emergency department for further evaluation. Dr. Grant would like to be contacted with an update on the evaluation. His cell phone is [phone]. Alexsander Aranda MD 05/06/17 1564 VERY TABLE OPERATOR documented in this encounter Plan of Treatment Not on filedocumented as of this encounter Procedures Procedure Name Priority Date/Time Associated Comments Diagnosis CT ABDOMEN PELVIS W Routine 05/06/2017 4:28 PM Re sults for this CONTRAST DELIVERY TABLE OPERATOR procedure are i n the results section. CT CHEST PULMONARY Routine 05/06/2017 4:20 PM Res ults for this EMBOLISM W CONTRAST DELIVERY TABLE OPERATOR procedur e are in the results section. GLUCOSE BY METER POCT Routine 05/06/2017 2:53 PM Results for this DELIVERY TABLE OPERATOR procedure are i n the results section. TYPE AND SCREEN, ADULT STAT 05/06/2017 2:15 PM Results for this DELIVERY TABLE OPERATOR procedure are i n the results section. EKG 12-LEAD, TRACING STAT 05/06/2017 2:05 PM R esults for this ONLY DELIVERY TABLE OPERATOR procedure are i n the results section. EXTRA APPLE TOP TUBE STAT 05/06/2017 1:42 PM DELIVERY TABLE OPERATOR CBC WITH PLATELETS AND STAT 05/06/2017 1:42 PM Results for this DIFFERENTIAL DELIVERY TABLE OPERATOR procedure are i n the results section. TROPONIN I Routine 05/06/2017 1:42 PM Results f or this DELIVERY TABLE OPERATOR procedure are i n the results section. MAGNESIUM Routine 05/06/2017 1:42 PM Results f or this DELIVERY TABLE OPERATOR procedure are i n the results section. COMPREHENSIVE Routine 05/06/2017 1:42 PM Results for this METABOLIC PANEL DELIVERY TABLE OPERATOR procedure ar e in the results section. documented in this encounter Results CT Abdomen Pelvis w Contrast (05/06/2017 4:28 PM DELIVERY TABLE OPERATOR) Anatomical Region Laterality Modality Abdomen/Pelvis, SUBRAD CT BODY, UMP CT ABDOMEN PELVIS, Computed Tomography RAD CT Specimen (Source) Anatomical Location Collection Method / Collectio n Time Received Time / Laterality Volume Impressions 05/06/2017 5:04 PM DELIVERY TABLE OPERATOR CONCLUSION: 1. ??No PE. 2. ??Elizabeth-en-Y gastric bypass. Small júnior unt of fluid in the excluded stomach, nonspecific. No free air. No bowel obstruction. 3. ??New small pleural effusion. 4. ??Interval splenectomy. 5. ??Unchanged appearance of a fat-conta ining hernia at the esophageal hiatus of the diaphragm. Narrative 05/06/2017 5:04 PM DELIVERY TABLE OPERATOR CTA CHEST PE RUN, CT ABDOMEN PELVIS [...] and 3D reconstructions were performed by the survey technologist. Dose reduction techniques were used. IV [...] and 3D reconstructions were performed by the survey technologist. Dose reduction techniques were used. IV [...] Pulmonary Embolism w Contrast (05/06/2017 4:20 PM DELIVERY TABLE OPERATOR) Anatomical Region Laterality Modality Chest, SUBRAD CT BODY, UMP CT CHEST Comp uted Tomography Specimen (Source) Anatomical Location Collection Method / Collectio n Time Received Time / Laterality Volume Impressions 05/06/2017 5:04 PM DELIVERY TABLE OPERATOR CONCLUSION: 1. ??No PE. 2. ??Elizabeth-en-Y gastric bypass. Small júnior unt of fluid in the excluded stomach, nonspecific. No free air. No bowel obstruction. 3. ??New small pleural effusion. 4. ??Interval splenectomy. 5. ??Unchanged appearance of a fat-conta ining hernia at the esophageal hiatus of the diaphragm. Narrative 05/06/2017 5:04 PM DELIVERY TABLE OPERATOR CTA CHEST PE RUN, CT ABDOMEN PELVIS [...] and 3D reconstructions were performed by the survey technologist. Dose reduction techniques were used. IV [...] and 3D reconstructions were performed by the survey technologist. Dose reduction techniques were used. IV [...] Glucose by meter POCT (05/06/2017 2:53 PM DELIVERY TABLE OPERATOR) athologist Signature GLUCOSE BY 196 mg/dL 05/06/2017 [facility] METER POCT 2:53 PM DELIVERY TABLE OPERATOR HOSPITAL POCT RESULTS Comment: Reference Ranges ? [...] specimen 05/06/2017 2:53 PM 018 9:09 (specimen) DELIVERY TABLE OPERATOR PM DELIVERY TABLE OPERATOR Historical Provider LAB - ENTER/EDIT POCT Performing Organization Address [facility]/ZIP Code Phon e Number [facility] POCT RESULTS [address] [place] [address] TYPE AND SCREEN, ADULT (05/06/2017 2:15 PM DELIVERY TABLE OPERATOR) P athologist Signature ABO/RH(D) O POS 05/06/2017 BLOOD BANK 3:09 PM DELIVERY TABLE OPERATOR Antibody Negative Negative 05/06/2017 BLOOD BANK Screen 3:09 PM DELIVERY TABLE OPERATOR Specimen Anatomical Collection Method Collection Time Receive d Time (Source) Location / / Volume Laterality Blood specimen VAD(CVC, PICC) / 05/06/2017 2:15 PM 2:24 (specimen) Unknown DELIVERY TABLE OPERATOR PM DELIVERY TABLE OPERATOR Rj Fontana MD LAB - BLOOD BANK TEST ORDER Performing Organization Address City/State/ZIP Code Phon e Number [facility] BLOOD BANK [address] [facility] [place] [address] BLOOD BANK [address] [place] [address] EKG 12-lead, tracing only (05/06/2017 2:05 PM DELIVERY TABLE OPERATOR) [facility] Method Time Signature Systolic Blood mmHg 05/06/2017 [facility] Pressure 3:22 PM CONVERSION DELIVERY TABLE OPERATOR Diastolic Blood mmHg 05/06/2017 [facility] Pressure 3:22 PM CONVERSION DELIVERY TABLE OPERATOR Ventricular Rate 76 BPM 05/06/2017 [facility] 3:22 PM CONVERSION DELIVERY TABLE OPERATOR Atrial Rate 76 BPM 05/06/2017 [facility] 3:22 PM CONVERSION DELIVERY TABLE OPERATOR MD Interval 190 ms 05/06/2017 [facility] 3:22 PM CONVERSION DELIVERY TABLE OPERATOR QRS Duration 104 ms 05/06/2017 [facility] 3:22 PM CONVERSION DELIVERY TABLE OPERATOR QT 384 ms 05/06/2017 [facility] 3:22 PM CONVERSION DELIVERY TABLE OPERATOR QTc 432 ms 05/06/2017 [facility] 3:22 PM CONVERSION DELIVERY TABLE OPERATOR P [place] 18 degrees 05/06/2017 [facility] 3:22 PM CONVERSION DELIVERY TABLE OPERATOR R AXIS -49 degrees 05/06/2017 [facility] 3:22 PM CONVERSION DELIVERY TABLE OPERATOR T [place] -16 degrees 05/06/2017 [facility] 3:22 PM CONVERSION DELIVERY TABLE OPERATOR Interpretation Sinus rhythm 05/06/2017 HE RADI[facility] ECG Left anterior fascicular block 3:22 PM CONVERSION Abnormal ECG DELIVERY TABLE OPERATOR When compared with ECG of 08-APR-2017 12:55, No significant change was found Confirmed by AISSATOU ??, CATY LOC:JN ([id number]) on 05/06/2017 3:22:26 PM Specimen Anatomical Collection Method Collection Time Receive d Time (Source) Location / / Volume Laterality 05/06/2017 2:05 PM 8 3:22 DELIVERY TABLE OPERATOR PM DELIVERY TABLE OPERATOR Rj Fontana MD ECG ORDERABLES Performing Organization Address City/State/ZIP Code Phon e Number HE CARDIOLOGY CONVERSION HE RADIANT CONVERSION EXTRA APPLE TOP TUBE (05/06/2017 1:42 PM DELIVERY TABLE OPERATOR) Specimen Anatomical Collection Method Collection Time Receive d Time (Source) Location / / Volume Laterality Blood specimen VAD(CVC, PICC) / 05/06/2017 1:42 PM 1:47 (specimen) Unknown DELIVERY TABLE OPERATOR PM DELIVERY TABLE OPERATOR Rj Fontana MD LAB - BLOOD ORDERABLES (ABNORMAL) CBC WITH PLATELETS AND DIFFERENTIAL (05/06/2017 1:42 PM DELIVERY TABLE OPERATOR) [facility] Method Time Signature WBC 14.9 (H) 4.0 - 05/06/2017 HEALTH 11.0 2:27 PM DELIVERY TABLE OPERATOR [facility] LAB[facility] RBC Count 3.35 (L) 4.40 - 05/06/2017 HEALTH 6.20 2:27 PM DELIVERY TABLE OPERATOR [facility] Hemoglobin 9.3 (L) 14.0 - 05/06/2017 HEALTH 18.0 g/dL 2:27 PM [facility] Hematocrit 28.3 (L) 40.0 - 05/06/2017 HEALTH 54.0 % 2:27 PM [facility] MCV 85 80 - 100 05/06/2017 HEALTH fL 2:27 PM [facility] MCH 27.8 27.0 - 05/06/2017 HEALTH 34.0 pg 2:27 PM [facility] MCHC 32.9 32.0 - 05/06/2017 HEALTH 36.0 g/dL 2:27 PM [facility] RDW 14.4 11.0 - 05/06/2017 [facility] 14.5 % 2:27 PM [facility] Platelet Count 381 140 - 440 05/06/2017 [facility]/ 2:27 PM [facility] Mean Platelet 11.2 8.5 - 05/06/2017 HEALTH Volume 12.5 fL 2:27 PM [facility] % Neutrophils 76 (H) 50 - 70 % 05/06/2017 HEALTH 2:27 PM DELIVERY TABLE OPERATOR [facility] % Lymphocytes 12 (L) 20 - 40 % 05/06/2017 [facility] 2:27 PM [facility] % Monocytes 12 (H) 2 - 10 % 05/06/2017 HEALTH 2:27 PM DELIVERY TABLE OPERATOR [facility] % Eosinophils 0 0 - 6 % 05/06/2017 HEALTH 2:27 PM [facility] % Basophils 1 0 - 2 % 05/06/2017 HEALTH 2:27 PM DELIVERY TABLE OPERATOR [facility] Absolute 11.1 (H) 2.0 - 7.7 05/06/2017 [facility] Neutrophils thou/uL 2:27 PM DELIVERY TABLE OPERATOR [facility] LAB[facility] Absolute 1.7 0.8 - 4.4 05/06/2017 [facility] Lymphocytes thou/uL 2:27 PM DELIVERY TABLE OPERATOR [facility] Absolute 1.8 (H) 0.0 - 0.9 05/06/2017 HEALTH Monocytes thou/uL 2:27 PM DELIVERY TABLE OPERATOR [facility] Eosinophils 0.0 0.0 - 0.4 05/06/2017 HEALTH Absolute thou/uL 2:27 PM [facility] Absolute 0.1 0.0 - 0.2 05/06/2017 [facility] Basophils thou/uL 2:27 PM DELIVERY TABLE OPERATOR [facility] Specimen Anatomical Collection Method Collection Time Receive d Time (Source) Location / / Volume Laterality Blood specimen VAD(CVC, PICC) / 05/06/2017 1:42 PM 1:47 (specimen) Unknown DELIVERY TABLE OPERATOR PM DELIVERY TABLE OPERATOR Rj Fontana MD LAB - BLOOD ORDERABLES Performing Organization Address City/[facility] Phon e Number [place] [address] [address] [facility] Troponin I (05/06/2017 1:42 PM DELIVERY TABLE OPERATOR) P athologist Signature Troponin I <0.01 0.00 - 0.29 05/06/2017 [facility] ng/mL 2:41 PM [facility] Specimen Anatomical Collection Method Collection Time Receive d Time (Source) Location / / Volume Laterality Blood specimen VAD(CVC, PICC) / 05/06/2017 1:42 PM 1:47 (specimen) Unknown DELIVERY TABLE OPERATOR PM DELIVERY TABLE OPERATOR Rj Fontana MD LAB - BLOOD ORDERABLES Performing Organization Address City/State/ZIP Code Phon e Number [place] [address] [phone] [address] [facility] (ABNORMAL) Magnesium (05/06/2017 1:42 PM DELIVERY TABLE OPERATOR) P athologist Signature Magnesium 1.2 (L) 1.8 - 2.6 05/06/2017 HEALTH mg/dL 2:41 PM DELIVERY TABLE OPERATOR [facility] Specimen Anatomical Collection Method Collection Time Receive d Time (Source) Location / / Volume Laterality Blood specimen VAD(CVC, PICC) / 05/06/2017 1:42 PM 1:47 (specimen) Unknown DELIVERY TABLE OPERATOR PM DELIVERY TABLE OPERATOR Rj Fontana MD LAB - BLOOD ORDERABLES Performing Organization Address [facility] Phon e Number [place] [address] [address] [facility] (ABNORMAL) Comprehensive metabolic panel (05/06/2017 1:42 PM DELIVERY TABLE OPERATOR) Patholo gist Method Time Signature Sodium 136 136 - 145 05/06/2017 HEALTH mmol/L 2:41 PM [facility] Potassium 3.5 3.5 - 5.0 05/06/2017 HEALTH mmol/L 2:41 PM [facility] Chloride 102 98 - 107 05/06/2017 HEALTH mmol/L 2:41 PM [facility] Carbon Dioxide 23 22 - 31 05/06/2017 HEALTH (CO2) mmol/L 2:41 PM [facility] Anion Gap 11 5 - 18 05/06/2017 HEALTH mmol/L 2:41 PM [facility] Glucose 171 (H) 70 - 125 05/06/2017 HEALTH mg/dL 2:41 PM [facility] Urea Nitrogen 15 8 - 28 05/06/2017 [facility] mg/dL 2:41 PM [facility] Creatinine 0.89 0.70 - 05/06/2017 [facility] 1.30 mg/dL 2:41 PM [facility] GFR Estimate If >60 >60 05/06/2017 [facility] Black mL/min/1.7 2:[address] LABORATORY GFR Estimate >60 >60 05/06/2017 [facility] mL/min/1.7 2:[address] LABORATORY Bilirubin Total 0.9 0.0 - 1.0 05/06/2017 [facility] mg/dL 2:41 PM [facility] Calcium 9.0 8.5 - 10.5 05/06/2017 [facility] mg/dL 2:41 PM [facility] Protein Total 6.2 6.0 - 8.0 05/06/2017 [facility] g/dL 2:41 PM [facility] Albumin 2.7 (L) 3.5 - 5.0 05/06/2017 [facility] g/dL 2:41 PM [facility] Alkaline 77 45 - 120 05/06/2017 [facility] Phosphatase U/L 2:41 PM [facility] AST 28 0 - 40 U/L 05/06/2017 [facility] 2:41 PM [facility] ALT 41 0 - 45 U/L 05/06/2017 [facility] 2:41 PM [facility] Specimen Anatomical Collection Method Collection Time Receive d Time (Source) Location / / Volume Laterality Blood specimen VAD(CVC, PICC) / 05/06/2017 1:42 PM 1:47 (specimen) Unknown DELIVERY TABLE OPERATOR PM DELIVERY TABLE OPERATOR Narrative [facility] LAB - 05/06/2017 2:41 PM DELIVERY TABLE OPERATOR Fasting Glucose reference range is 70-99 mg/dL per [place] [employer] (ADA) addie rojas. Rj Fontana MD LAB - BLOOD ORDERABLES Performing Organization Address City/State/ZIP Code Phon e [place] [address] [id number] [place], [place] [address]S LABORATORY [facility] [address] [place] [address], [facility] documented in this encounter Visit Diagnoses Diagnosis Shortness of breath Pleural effusion, left Unspecified pleural effusion Mild anemia Anemia, unspecified Hypomagnesemia Disorders of magnesium metabolism documented in this encounter Care Teams Mold Clamper Relationship Specialty Start Date End Date Benjamin Henao MD PCP - General Internal Medicine 07/24/[address] [place] [address] documented as of this encounter
--- OUTSIDE RECORDS SUMMARY | 2022-03-05 07:54 | XMS_ITS | Encounter Summary ---
:1945 Author Organization [facility] Address [address] [place] [address] Care Team Providers Name Role Phone Benjamin Henao MD Primary Care Provider Reason for Visit Reason Comments Nutrition Counseling Encounter Details Date Type Department Care Team Description 05/06/2017 [facility][1] - [facility] Bariatric surgery status; [facility] and Obesity, morbid, BMI 40.0-49.9 (H); [facility]ariatrics Care [facility] [address] [address] Social History Tobacco Use Types [...] counseling documented in this encounter Care Teams Mason Tender Restoration Labor Relationship Specialty Start Date End Date Benjamin Henao MD PCP - General Internal Medicine 07/24/16 [address] [place] [address] documented as of this encounter
--- OUTSIDE RECORDS SUMMARY | 2022-03-05 07:54 | XMS_ITS | Encounter Summary ---
:1945 Author Organization [facility] Address [address] [place] [address] Care Team Providers Name Role Phone Benjamin Henao MD Primary Care Provider Reason for Visit Reason Comments Weight Problem Post-op Visit 3 wks s/p RNY Encounter Details Date Type Department Care Team Description 05/21/2017 [facility] S[facility] and [address] [place] [address] Bariatrics Care [address] [place], [place] (Work) [address] Social History Tobacco Use [...] 123.8 kg (273 lb) 05/21/2017 10:24 AM CARGO INSPECTOR Height 172.7 cm (5' 8) 05/21/2017 10:24 AM CARGO INSPECTOR Body Mass Index 41.51 05/21/2017 10:24 AM CARGO INSPECTOR documented in this encounter Progress Notes Gayatri Weber, RN - 05/21/2017 10:30 AM CST Pt is 3 weeks s/p open RNY and is here to have his katya removed. See flowsheet. Gayatri Weber RN, CBN [facility] Surgery and Bariatric Care P [phone] F [phone] O INSPECTOR Naresh Grant MD - 05/21/2017 10:30 AM [...] EXAM: GENERAL:Appears well ABDOMEN: Incisions healing well. Katya removed today. Gastrostomy site looks much better than lastweek. Assessment/Plan: Pt s/p open Falguni-en-Y gastric bypass and splenectomy. Doing well. Diet and activitydiscussed. He will f/u with us at the Bariatric Center in 3 months for the dietitian visit. Naresh Grant MD [facility] Department of Surgery O INSPECTOR documented in this encounter Plan of Treatment Not on filedocumented as of this encounter Visit Diagnoses Diagnosis S/P gastric bypass Bariatric surgery status documented in this encounter Care Teams Hotel Front Office Manager Relationship Specialty Start Date End Date Benjamin Henao MD PCP - General Internal Medicine 07/24/[address] [place] [address] documented as of this encounter
--- OUTSIDE RECORDS SUMMARY | 2022-03-05 07:54 | XMS_ITS | Encounter Summary ---
:1945 Author Organization [facility] Address [address] [place] [address] Care Team Providers Name Role Phone Benjamin Henao MD Primary Care Provider Reason for Visit Reason Comments Nutrition Counseling Encounter Details Date Type Department Care Team Description 04/17/2017 [facility] Bariatric surgery status; [facility] and Obesity, morbid, BMI 40.0-49.9 (H); Bariatrics Care [facility]ary coun [facility] [address] [address] Social History Tobacco Use Types [...] 143.8 kg (317 lb) 04/17/2017 1:00 PM SOUND CONTROLLER Height 172.7 cm (5' 8) 04/17/2017 1:00 PM SOUND CONTROLLER Body Mass Index 48.2 04/17/2017 1:00 PM SOUND CONTROLLER documented in this encounter Progress Notes Historical [...] counseling documented in this encounter Care Teams Acquisition Manager Relationship Specialty Start Date End Date Benjamin Henao MD PCP - General Internal Medicine 07/24/16 [address] [phone] documented as of this encounter
--- OUTSIDE RECORDS SUMMARY | 2022-03-05 07:54 | XMS_ITS | Encounter Summary ---
:1945 Author Organization [facility] Address [address] [place] [address] Care Team Providers Name Role Phone Benjamin Henao MD Primary Care Provider Encounter Details Date Type Department Care Team Description 05/01/2017 - Hospital Encounter [id number] Naresh Grant MD Type 2 diabetes 05/04/2017 MS/BARIATRIC/RENAL [address] [place] [address] RD mellitus with [address], [address] [address] unspecified [place], [place] [phone] term insulin use [id number] (Work) status (H) [phone] Social History Tobacco Use Types Packs/Day Years [...] (303 lb 6.4 oz) 05/03/2017 11:06 AM SAIL FINISHER MACHINE Height 172.7 cm (5' 8) 05/01/2017 6:19 AM SAIL FINISHER MACHINE Body Mass Index 46.13 05/01/2017 6:19 AM SAIL FINISHER MACHINE documented in this encounter Discharge Summaries Juanita, [...] Discharge Medications: Faith Adames Home Medication Instructions [id number] Printed on:05/04/17 1029 Medication Information aspirin 81 [...] mm 31G 1 mL syringe - [facility] [id number] - dispense 1 case, refill PRN for [...] surgery or until you meet with the computer technologist, you will be on a full liquid [...] are Clean and Dry Myrna Grant PA-C [facility] [address] [place], [place] [id number] FINISHER MACHINE Bonny, Yadira Kim MD - 05/04/2017 9:54 AM CST [facility] MEDICINE DISCHARGE SUMMARY Primary Care Physician: [...] mm 31G 1 mL syringe - [facility] [id number] - dispense 1 case, refill PRN for [...] safe. Questions about your anesthetic? Please visit [facility] ([facility] website ([email or web address]) or call the [facility] nurse line at [phone]. Activity as tolerated Order Comments: Rest when [...] EMR for more detailed significant labs, imaging, technical healthcare consultant notes etc. Total time spent today greater than 35 minutes with greater than 50% of time spent in counseling andcoordination of care. Yadira Draper MD [facility]: CC:Benjamin Henao MD FINISHER MACHINE documented in this encounter Medications at Time [...] place discharge orders in Myrna Grant PA-C [phone] [facility] [address] [place], [place] [id number] FINISHER MACHINE Naresh Grant MD - 05/03/2017 5:40 PM CST Agree with note of fernie Guerrero PA-C. Pt seen and examined. Chart reviewed. Feels well. Voiding on own. Tolerating diet. Probably home tomorrow. Naresh Grant MD [facility] Department of Surgery FINISHER MACHINE Yadira Draper MD - 05/03/2017 9:17 AM [...] from last 7 days Lab Units 05/02/17 [address]-[facility] mg/dL 2.6 Lab Results Component Value [...] are unintentional and inherent to the software. FINISHER MACHINE Day, Myrna Mascorro PA-C - 05/03/2017 8:56 [...] Lying Lying Pulse: 75 76 72 Resp: Temp: 98.5 ??F (36.9 ??C) 98 ??F [...] progressing well. Plan: ok d/c egan and rover tender. Ok d/c iv fluids. Waiting for better bowel function return. Anticipate home tomorrow. Myrna Grant PA-C [phone] [facility] [address] [place], [place] [phone] FINISHER MACHINE Historical Provider - 05/02/2017 2:57 PM CST [...] up at [facility] Clinic next week. Gayatri Weber RN - 05/02/2017 11:46 AM CST Bariatric [...] understanding of all instructions. Gayatri Weber RN, [facility] P [phone] F [phone] FINISHER MACHINE Yadira Draper MD - 05/02/2017 11:26 AM [...] are unintentional and inherent to the software. FINISHER MACHINE Naresh Grant MD - 05/02/2017 7:22 AM [...] plans for discharge today. Naresh Grant MD [facility] Department of Surgery FINISHER MACHINE Yadira Draper MD - 05/01/2017 1:39 PM [...] are unintentional and inherent to the software. FINISHER MACHINE Historical Provider - 05/01/2017 6:30 AM CST Pharmacy Note - Admission Medication History Pertinent Provider Information: Prior To Admission (HUMAN GEOGRAPHY INSTRUCTOR) med list completed and updated in EMR. HUMAN GEOGRAPHY INSTRUCTOR Med List Medication Sig Last Dose ??? [...] Patient was asked about OTC/herbal products specifically. HUMAN GEOGRAPHY INSTRUCTOR med list reflects this. Based on the pharmacist???s assessment, the HUMAN GEOGRAPHY INSTRUCTOR med list information appears reliable Allergies were reviewed, assessed, and updated with the patient. Patient does not use any multi-dose medications prior to admission. Thank you for the opportunity to participate in the care of this patient. Naresh Ward [facility] 05/01/2017 6:30 AM documented in this encounter H&P Notes Naresh Grant MD - 05/01/2017 7:22 AM CST I have performed an assessment and examined the patient, as necessary, to update the patient's current status that may have changed since the prior History and Physical. 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 18 Kinyarwanda red rubber Rae was then brought in [...] Implant Name Type Inv. Item Serial No. Singer Back Tender Lot No. LRB No. Used Action STAPLE RELOAD ECHELON 60MM 4.1MM GREEN - [id number] - S STAPLING STAPLE RELOAD ECHELON 60MM 4.1MM GREEN - [id number] ETHICON/EN [id number] N/A 2 Implanted STAPLE RELOAD ECHELON 60MM 4.1MM GREEN - [id number] - S STAPLING STAPLE RELOAD ECHELON 60MM 4.1MM GREEN - [id number] ETHICON/EN [id number] N/A 2 Implanted MAKE UP EDITOR ENDO LIGAMAX 5MM - [id number] - S STAPLING MAKE UP EDITOR ENDO LIGAMAX 5MM - [id number] ETHICON/EN [id number] N/A 1 Implanted MAKE UP EDITOR ENDO CLIP 10MM [id number] - S STAPLING MAKE UP EDITOR ENDO CLIP 10MM ER320 ETHICON/EN [id number] N/A 2 Implanted STAPLE RELOAD ECHELON 60MM 3.6MM BLUE - [id number] - S STAPLING STAPLE RELOAD ECHELON 60MM 3.6MM BLUE - [id number] ETHICON/EN [id number] N/A 1 Implanted STAPLE RELOAD ECHELON 60MM 2.6MM WHITE - [id number] - S STAPLING STAPLE RELOAD ECHELON 60MM 2.6MM WHITE - [id number] ETHICON/EN [id number] N/A 2 Implanted 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 CROSSMATCH RED CELLS Routine 05/05/2017 12:03 Res ults for this AM SAIL FINISHER MACHINE procedure are i n the results section. CBC WITH PLATELETS Routine 05/04/2017 8:38 AM Res ults for this AND DIFFERENTIAL SAIL FINISHER MACHINE procedure a re in the results section. GLUCOSE BY METER POCT Routine 05/04/2017 7:10 AM Results for this SAIL FINISHER MACHINE procedure are i n the results section. GLUCOSE BY METER POCT Routine 05/03/2017 9:28 PM Results for this SAIL FINISHER MACHINE procedure are i n the results section. GLUCOSE BY METER POCT Routine 05/03/2017 5:09 PM Results for this SAIL FINISHER MACHINE procedure are i n the results section. LAB RESULT - HIM SCAN 05/03/2017 1:04 PM SAIL FINISHER MACHINE GLUCOSE BY METER POCT Routine 05/03/2017 11:39 Re sults for this AM SAIL FINISHER MACHINE procedure are i n the results section. GLUCOSE BY METER POCT Routine 05/03/2017 8:11 AM Results for this SAIL FINISHER MACHINE procedure are i n the results section. CROSSMATCH RED CELLS STAT 05/03/2017 7:08 AM R esults for this SAIL FINISHER MACHINE procedure are i n the results section. CROSSMATCH RED CELLS STAT 05/03/2017 7:08 AM R esults for this SAIL FINISHER MACHINE procedure are i n the results section. GLUCOSE BY METER POCT Routine 05/02/2017 8:25 PM Results for this SAIL FINISHER MACHINE procedure are i n the results section. GLUCOSE BY METER POCT Routine 05/02/2017 5:09 PM Results for this SAIL FINISHER MACHINE procedure are i n the results section. GLUCOSE BY METER POCT Routine 05/02/2017 11:41 Re sults for this AM SAIL FINISHER MACHINE procedure are i n the results section. GLUCOSE BY METER POCT Routine 05/02/2017 8:15 AM Results for this SAIL FINISHER MACHINE procedure are i n the results section. CBC WITH PLATELETS Routine 05/02/2017 8:07 AM Res ults for this AND DIFFERENTIAL SAIL FINISHER MACHINE procedure a re in the results section. RENAL PANEL Routine 05/02/2017 8:07 AM Results f or this SAIL FINISHER MACHINE procedure are i n the results section. MAGNESIUM Routine 05/02/2017 8:07 AM Results f or this SAIL FINISHER MACHINE procedure are i n the results section. CROSSMATCH RED CELLS Routine 05/02/2017 12:04 Res ults for this AM SAIL FINISHER MACHINE procedure are i n the results section. CROSSMATCH RED CELLS Routine 05/02/2017 12:04 Res ults for this AM SAIL FINISHER MACHINE procedure are i n the results section. GLUCOSE BY METER POCT Routine 05/01/2017 9:09 PM Results for this SAIL FINISHER MACHINE procedure are i n the results section. HEMOGLOBIN Routine 05/01/2017 7:21 PM Results f or this SAIL FINISHER MACHINE procedure are i n the results section. GLUCOSE BY METER POCT Routine 05/01/2017 5:47 PM Results for this SAIL FINISHER MACHINE procedure are i n the results section. HEMOGLOBIN STAT 05/01/2017 12:12 Results for this PM SAIL FINISHER MACHINE procedure are i n the results section. GLUCOSE BY METER POCT Routine 05/01/2017 11:20 Re sults for this AM SAIL FINISHER MACHINE procedure are i n the results section. XR ABDOMEN PORT 1 Routine 05/01/2017 10:47 Result s for this VIEW AM SAIL FINISHER MACHINE procedure are i n the results section. GLUCOSE BY METER POCT Routine 05/01/2017 10:05 Re sults for this AM SAIL FINISHER MACHINE procedure are i n the results section. MAGNESIUM STAT 05/01/2017 10:00 Results for this AM SAIL FINISHER MACHINE procedure are i n the results section. BLOOD GAS ARTERIAL STAT 05/01/2017 10:00 Resul ts for this AM SAIL FINISHER MACHINE procedure are i n the results section. BASIC METABOLIC PANEL STAT 05/01/2017 10:00 Re sults for this AM SAIL FINISHER MACHINE procedure are i n the results section. HEMOGLOBIN STAT 05/01/2017 9:55 AM Results f or this SAIL FINISHER MACHINE procedure are i n the results section. SURGICAL PATHOLOGY Routine 05/01/2017 9:49 AM Res ults for this EXAM SAIL FINISHER MACHINE procedure are i n the results section. EXTRA BLUE TOP TUBE Routine 05/01/2017 9:30 AM SAIL FINISHER MACHINE TYPE AND SCREEN, Routine 05/01/2017 9:30 AM Resul ts for this ADULT SAIL FINISHER MACHINE procedure are i n the results section. CBC WITH PLATELETS STAT 05/01/2017 9:30 AM Res ults for this SAIL FINISHER MACHINE procedure are i n the results section. GLUCOSE BY METER POCT Routine 05/01/2017 8:21 AM Results for this SAIL FINISHER MACHINE procedure are i n the results section. GLUCOSE BY METER POCT Routine 05/01/2017 6:03 AM Results for this SAIL FINISHER MACHINE procedure are i n the results section. documented in this encounter Results Crossmatch red cells (05/05/2017 12:03 AM SAIL FINISHER MACHINE) [facility] Method Time Signature Crossmatch Compatible 05/05/2017 SJ BLOOD 12:03 AM BANK SAIL FINISHER MACHINE BLOOD [id number] 05/05/2017 SJ BLOOD EXPIRATION 12:03 AM BANK DATE SAIL FINISHER MACHINE Unit ABO/RH O Pos 05/05/2017 SJ BLOOD 12:03 AM BANK SAIL FINISHER MACHINE Unit Number [id number] 05/05/2017 SJ BLOOD 12:03 AM BANK SAIL FINISHER MACHINE Status Released 05/05/2017 SJ BLOOD 12:03 AM BANK SAIL FINISHER MACHINE Component Red Blood Cells 05/05/2017 SJ BLOOD 12:03 AM BANK SAIL FINISHER MACHINE Product Code [id number] 05/05/2017 SJ BLOOD 12:03 AM BANK SAIL FINISHER MACHINE BLOOD TYPE 5100 05/05/2017 SJ BLOOD 12:03 AM BANK SAIL FINISHER MACHINE CODING SYSTEM [id number] 05/05/2017 SJ BLOOD 12:03 AM BANK SAIL FINISHER MACHINE Specimen (Source) Anatomical Location Collection Method / Collectio n Time Received Time / Laterality Volume Derian Yeager MD LAB - BLOOD BANK PRODUCT ORD ER Performing Organization Address City/State/ZIP Code Phon e Number O BLOOD BANK [address] [place] [address] BLOOD BANK [address] [place] [address] Crossmatch red cells (05/05/2017 12:03 AM SAIL FINISHER MACHINE) [facility] Method Time Signature Crossmatch Compatible 05/05/2017 SJ BLOOD 12:03 AM BANK SAIL FINISHER MACHINE BLOOD [id number] 05/05/2017 SJ BLOOD EXPIRATION 12:03 AM BANK DATE SAIL FINISHER MACHINE Unit ABO/RH O Pos 05/05/2017 SJ BLOOD 12:03 AM BANK SAIL FINISHER MACHINE Unit Number [id number] 05/05/2017 SJ BLOOD 12:03 AM BANK SAIL FINISHER MACHINE Status Released 05/05/2017 SJ BLOOD 12:03 AM BANK SAIL FINISHER MACHINE Component Red Blood Cells 05/05/2017 SJ BLOOD 12:03 AM BANK SAIL FINISHER MACHINE Product Code [id number] 05/05/2017 SJ BLOOD 12:03 AM BANK SAIL FINISHER MACHINE BLOOD TYPE 5100 05/05/2017 BLOOD 12:03 AM BANK SAIL FINISHER MACHINE CODING SYSTEM [id number] 05/05/2017 BLOOD 12:03 AM BANK SAIL FINISHER MACHINE Specimen (Source) Anatomical Location Collection Method / Collectio n Time Received Time / Laterality Volume Derian Yeager MD LAB - BLOOD BANK PRODUCT ORD ER Performing Organization Address City/State/ZIP Code Phon e Number SJ BLOOD BANK [address] [place] [address] BLOOD BANK [address] [place] [address] (ABNORMAL) CBC WITH PLATELETS AND DIFFERENTIAL (05/04/2017 8:38 AM SAIL FINISHER MACHINE) [facility] Method Time Signature WBC 11.7 (H) 4.0 - 05/04/2017 HEALTH 11.0 8:46 AM SAIL FINISHER MACHINE [facility] RBC Count 3.26 (L) 4.40 - 05/04/2017 HEALTH 6.20 8:46 AM SAIL FINISHER MACHINE [facility] Hemoglobin 9.0 (L) 14.0 - 05/04/2017 HEALTH 18.0 g/dL 8:46 AM SAIL FINISHER MACHINE [facility] Hematocrit 28.7 (L) 40.0 - 05/04/2017 HEALTH 54.0 % 8:46 AM SAIL FINISHER MACHINE [facility] MCV 88 80 - 100 05/04/2017 HEALTH fL 8:46 AM SAIL FINISHER MACHINE [facility] MCH 27.6 27.0 - 05/04/2017 HEALTH 34.0 pg 8:46 AM SAIL FINISHER MACHINE [facility] MCHC 31.4 (L) 32.0 - 05/04/2017 HEALTH 36.0 g/dL 8:46 AM SAIL FINISHER MACHINE [facility] RDW 14.6 (H) 11.0 - 05/04/2017 HEALTH 14.5 % 8:46 AM SAIL FINISHER MACHINE [facility] Platelet Count 209 140 - 440 05/04/2017 [facility]/uL 8:46 AM SAIL FINISHER MACHINE [employer] [facility] Mean Platelet 11.0 8.5 - 05/04/2017 HEALTH Volume 12.5 fL 8:46 AM SAIL FINISHER MACHINE [employer] [facility] % Neutrophils 70 50 - 70 % 05/04/2017 [facility] 8:46 AM [facility] % Lymphocytes 17 (L) 20 - 40 % 05/04/2017 [facility] 8:46 AM [facility] % Monocytes 13 (H) 2 - 10 % 05/04/2017 [facility] 8:46 AM [facility] [employer] [facility] % Eosinophils 0 0 - 6 % 05/04/2017 [facility] 8:46 AM [facility] [employer] [facility] % Basophils 0 0 - 2 % 05/04/2017 [facility] 8:46 AM [facility] [employer] [facility] Absolute 8.2 (H) 2.0 - 7.7 05/04/2017 [facility] Neutrophils thou/uL 8:46 AM [facility] Absolute 1.9 0.8 - 4.4 05/04/2017 [facility] Lymphocytes thou/uL 8:46 AM [facility] Absolute 1.5 (H) 0.0 - 0.9 05/04/2017 [facility] Monocytes thou/uL 8:46 AM [facility] Eosinophils 0.0 0.0 - 0.4 05/04/2017 [facility] Absolute thou/uL 8:46 AM [facility] Absolute 0.1 0.0 - 0.2 05/04/2017 [facility] Basophils thou/uL 8:46 AM [facility] Specimen Anatomical Collection Method / Collection Time Recei nona Time (Source) Location / Volume Laterality Blood specimen STRUCTURE OF LEFT Venipuncture / 05/04/2017 8:38 8:41 (specimen) UPPER LIMB / Unknown AM SAIL FINISHER MACHINE AM SAIL FINISHER MACHINE Unknown Yadira Draper MD LAB - BLOOD ORDERABLES Performing Organization Address City/State/ZIP Code Phon [place] [address] [id number] [place] [address] LABORATORY Glucose by meter POCT (05/04/2017 7:10 AM SAIL FINISHER MACHINE) athologist Signature GLUCOSE BY 151 mg/dL 05/04/2017 [facility] METER POCT 7:10 AM [facility] POCT RESULTS Comment: Reference Ranges ? Age [...] specimen 05/04/2017 7:10 AM 018 7:12 (specimen) [facility] Historical Provider LAB - ENTER/EDIT POCT Performing Organization Address City/State/ZIP Code Phon e Number [facility] POCT RESULTS [address] [place] [address] Glucose by meter POCT (05/03/2017 9:28 PM [facility]) P athologist Signature GLUCOSE BY 161 mg/dL 05/03/2017 [facility] METER POCT 9:28 PM [facility] POCT RESULTS Comment: Reference Ranges [...] specimen 05/03/2017 9:28 PM 018 9:34 (specimen) SAIL FINISHER MACHINE PM SAIL FINISHER MACHINE Historical Provider LAB - ENTER/EDIT POCT Performing Organization Address City/State/ZIP Code Phon e Number [facility] POCT RESULTS [address] [place] [address] Glucose by meter POCT (05/03/2017 5:09 PM [facility]) athologist Signature GLUCOSE BY 150 mg/dL 05/03/2017 [facility] METER POCT 5:09 PM [facility] POCT RESULTS Comment: Reference Ranges ? Age [...] specimen 05/03/2017 5:09 PM 018 5:11 (specimen) SAIL FINISHER MACHINE PM SAIL FINISHER MACHINE Historical Provider LAB - ENTER/EDIT POCT Performing Organization Address City/State/ZIP Code Phon e Number [facility] POCT RESULTS [address] [place] [address] LAB RESULT - HIM SCAN (05/03/2017 1:04 PM SAIL FINISHER MACHINE) Specimen (Source) Anatomical Location Collection Method / Collectio n Time Received Time / Laterality Volume Narrative This result has an attachment that is no t available. Historical Provider NON-BEAKER LAB TESTING Glucose by meter POCT (05/03/2017 11:39 AM [facility]) P athologist Signature GLUCOSE BY 191 mg/dL 05/03/2017 [facility] METER POCT 11:39 AM [facility] POCT RESULTS Comment: Reference Ranges ? Age [...] Blood specimen 05/03/2017 11:39 8 (specimen) AM SAIL FINISHER MACHINE 11:41 AM SAIL FINISHER MACHINE Historical Provider LAB - ENTER/EDIT POCT Performing Organization Address City/State/ZIP Code Phon e Number [facility] POCT RESULTS [address] [place] [address] Glucose by meter POCT (05/03/2017 8:11 AM SAIL FINISHER MACHINE) athologist Signature GLUCOSE BY 172 mg/dL 05/03/2017 [facility] METER POCT 8:11 AM SAIL FINISHER MACHINE [facility] POCT RESULTS Comment: Reference Ranges ? [...] specimen 05/03/2017 8:11 AM 018 8:12 (specimen) SAIL FINISHER MACHINE AM SAIL FINISHER MACHINE Historical Provider LAB - ENTER/EDIT POCT Performing Organization Address City/[facility]/ZIP [facility] Phon e Number [facility] POCT RESULTS [address] [place] [address] Crossmatch red cells (05/03/2017 7:08 AM SAIL FINISHER MACHINE) [facility] Method Time Signature Crossmatch Compatible 05/03/2017 SJ BLOOD 7:08 AM SAIL FINISHER MACHINE BANK BLOOD [id number] 05/03/2017 SJ BLOOD EXPIRATION 7:08 AM SAIL FINISHER MACHINE BANK DATE Unit ABO/RH O Neg 05/03/2017 SJ BLOOD 7:08 AM SAIL FINISHER MACHINE BANK Unit Number [id number] 05/03/2017 SJ BLOOD 7:08 AM SAIL FINISHER MACHINE BANK Status Released 05/03/2017 SJ BLOOD 7:08 AM SAIL FINISHER MACHINE BANK Component Red Blood Cells 05/03/2017 SJ BLOOD 7:08 AM SAIL FINISHER MACHINE BANK Product Code [id number] 05/03/2017 SJ BLOOD 7:08 AM SAIL FINISHER MACHINE BANK BLOOD TYPE 9500 05/03/2017 SJ BLOOD 7:08 AM SAIL FINISHER MACHINE BANK CODING SYSTEM [id number] 05/03/2017 SJ BLOOD 7:08 AM SAIL FINISHER MACHINE BANK Specimen (Source) Anatomical Location Collection Method / Collectio n Time Received Time / Laterality Volume Derian Yeager MD LAB - BLOOD BANK PRODUCT ORD ER Performing Organization Address [facility]/ZIP [facility] Phon e Number [facility] BLOOD BANK [address] [place] [address] [facility] BLOOD BANK [address] [place] [address] Crossmatch red cells (05/03/2017 7:08 AM SAIL FINISHER MACHINE) [facility] Method Time Signature Crossmatch Compatible 05/03/2017 SJ BLOOD 7:08 AM SAIL FINISHER MACHINE BANK BLOOD [id number] 05/03/2017 SJ BLOOD EXPIRATION 7:08 AM SAIL FINISHER MACHINE BANK DATE Unit ABO/RH O Neg 05/03/2017 SJ BLOOD 7:08 AM SAIL FINISHER MACHINE BANK Unit Number [id number] 05/03/2017 SJ BLOOD 7:08 AM SAIL FINISHER MACHINE BANK Status Released 05/03/2017 SJ BLOOD 7:08 AM SAIL FINISHER MACHINE BANK Component Red Blood Cells 05/03/2017 SJ BLOOD 7:08 AM SAIL FINISHER MACHINE BANK Product Code [id number] 05/03/2017 SJ BLOOD 7:08 AM SAIL FINISHER MACHINE BANK BLOOD TYPE 9500 05/03/2017 SJ BLOOD 7:08 AM SAIL FINISHER MACHINE BANK CODING SYSTEM [id number] 05/03/2017 SJ BLOOD 7:08 AM SAIL FINISHER MACHINE BANK Specimen (Source) Anatomical Location Collection Method / Collectio n Time Received Time / Laterality Volume Derian Yeager MD LAB - BLOOD BANK PRODUCT ORD ER Performing Organization Address City/State/ZIP Code Phon e Number [facility] BLOOD BANK [address] [place] [address] BLOOD BANK [address] [place] [address] Glucose by meter POCT (05/02/2017 8:25 PM [facility]) athologist Signature GLUCOSE BY 186 mg/dL 05/02/2017 [facility] METER POCT 8:25 PM [facility] POCT RESULTS Comment: Reference Ranges [...] specimen 05/02/2017 8:25 PM 018 8:28 (specimen) SAIL FINISHER MACHINE PM SAIL FINISHER MACHINE Historical Provider LAB - ENTER/EDIT POCT Performing Organization Address City/State/ZIP Code Phon e Number [facility] POCT RESULTS [address] [place] [address] Glucose by meter POCT (05/02/2017 5:09 PM [facility]) P athologist Signature GLUCOSE BY 171 mg/dL 05/02/2017 [facility] METER POCT 5:09 PM [facility] POCT RESULTS Comment: Reference Ranges [...] specimen 05/02/2017 5:09 PM 018 5:10 (specimen) SAIL FINISHER MACHINE PM SAIL FINISHER MACHINE Historical Provider LAB - ENTER/EDIT POCT Performing Organization Address City/State/ZIP Code Phon e Number [facility] POCT RESULTS [address] [place] [address] Glucose by meter POCT (05/02/2017 11:41 AM [facility]) athologist Signature GLUCOSE BY 197 mg/dL 05/02/2017 [facility] METER POCT 11:41 AM [facility] POCT RESULTS Comment: Reference Ranges ? Age [...] Blood specimen 05/02/2017 11:41 8 (specimen) AM SAIL FINISHER MACHINE 11:42 AM SAIL FINISHER MACHINE Historical Provider LAB - ENTER/EDIT POCT Performing Organization Address City/State/ZIP Code Phon e Number [facility] HOSPITAL POCT RESULTS [address] [place] [address] Glucose by meter POCT (05/02/2017 8:15 AM SAIL FINISHER MACHINE) athologist Signature GLUCOSE BY 163 mg/dL 05/02/2017 [facility] METER POCT 8:15 AM [facility] POCT RESULTS Comment: Reference Ranges ? Age [...] specimen 05/02/2017 8:15 AM 018 8:15 (specimen) SAIL FINISHER MACHINE AM SAIL FINISHER MACHINE Historical Provider LAB - ENTER/EDIT POCT Performing Organization Address City/State/ZIP Code Phon e Number [facility] POCT RESULTS [address] [place] [address] (ABNORMAL) CBC WITH PLATELETS AND DIFFERENTIAL (05/02/2017 8:07 AM SAIL FINISHER MACHINE) [facility] gist Method Time Signature WBC 15.0 (H) 4.0 - 05/02/2017 [facility] 11.0 8:16 AM SAIL FINISHER MACHINE [facility]/ [facility] RBC Count 3.71 (L) 4.40 - 05/02/2017 [facility] 6.20 8:16 AM SAIL FINISHER MACHINE [facility] Hemoglobin 10.5 (L) 14.0 - 05/02/2017 [facility] 18.0 g/dL 8:16 AM SAIL FINISHER MACHINE [facility] Hematocrit 32.1 (L) 40.0 - 05/02/2017 [facility] 54.0 % 8:16 AM [facility] MCV 87 80 - 100 05/02/2017 [facility] fL 8:16 AM [facility] MCH 28.3 27.0 - 05/02/2017 [facility] 34.0 pg 8:16 AM SAIL FINISHER MACHINE [facility] MCHC 32.7 32.0 - 05/02/2017 [facility] 36.0 g/dL 8:16 AM [facility] RDW 14.6 (H) 11.0 - 05/02/2017 [facility] 14.5 % 8:16 AM SAIL FINISHER MACHINE [facility] Platelet Count 166 140 - 440 05/02/2017 [facility] thou/uL 8:16 AM SAIL FINISHER MACHINE [facility] Mean Platelet 11.8 8.5 - 05/02/2017 [facility] Volume 12.5 fL 8:16 AM [facility] % Neutrophils 71 (H) 50 - 70 % 05/02/2017 [facility] 8:16 AM [facility] % Lymphocytes 16 (L) 20 - 40 % 05/02/2017 [facility] 8:16 AM SAIL FINISHER MACHINE [facility] % Monocytes 13 (H) 2 - 10 % 05/02/2017 [facility] 8:16 AM SAIL FINISHER MACHINE [facility] % Eosinophils 0 0 - 6 % 05/02/2017 [facility] 8:16 AM [facility] % Basophils 1 0 - 2 % 05/02/2017 [facility] 8:16 AM [facility] Absolute 10.6 (H) 2.0 - 7.7 05/02/2017 [facility] Neutrophils thou/uL 8:16 AM SAIL FINISHER MACHINE [facility] Absolute 2.3 0.8 - 4.4 05/02/2017 [facility] Lymphocytes thou/uL 8:16 AM SAIL FINISHER MACHINE [facility] Absolute 1.9 (H) 0.0 - 0.9 05/02/2017 [facility] Monocytes thou/uL 8:16 AM [facility] Eosinophils 0.0 0.0 - 0.4 05/02/2017 [facility] Absolute thou/uL 8:16 AM SAIL FINISHER MACHINE [facility] Absolute 0.1 0.0 - 0.2 05/02/2017 [facility] Basophils thou/uL 8:16 AM SAIL FINISHER MACHINE [facility] Specimen Anatomical Collection Method / Collection Time Recei nona Time (Source) Location / Volume Laterality Blood specimen STRUCTURE OF LEFT Venipuncture / 05/02/2017 8:07 02/2018 8:10 (specimen) UPPER LIMB / Unknown AM SAIL FINISHER MACHINE AM SAIL FINISHER MACHINE Unknown Yadira Draper MD LAB - BLOOD ORDERABLES Performing Organization Address [facility] Ph[place] [address] [address] [facility] Magnesium (05/02/2017 8:07 AM SAIL FINISHER MACHINE) P athologist Signature Magnesium 1.8 1.8 - 2.6 05/02/2017 [facility] mg/dL 8:31 AM [facility] Specimen Anatomical Collection Method / Collection Time Recei nona Time (Source) Location / Volume Laterality Blood specimen STRUCTURE OF LEFT Venipuncture / 05/02/2017 8:07 02/2018 8:10 (specimen) UPPER LIMB / Unknown AM SAIL FINISHER MACHINE AM SAIL FINISHER MACHINE Unknown Yadira Draper MD LAB - BLOOD ORDERABLES Performing Organization Address City/[facility] Phon e Number [facility] [place] [address] [address] [facility] (ABNORMAL) Renal panel (05/02/2017 8:07 AM SAIL FINISHER MACHINE) Analysis Performed At Patho logist Time Signature Albumin 3.3 (L) 3.5 - 5.0 05/02/2017 [facility] g/dL 8:31 AM [facility] Calcium 7.9 (L) 8.5 - 10.5 05/02/2017 [facility] mg/dL 8:31 AM [facility] Phosphorus 2.6 2.5 - 4.5 05/02/2017 [facility] mg/dL 8:31 AM [facility] Glucose 160 (H) 70 - 125 05/02/2017 [facility] mg/dL 8:31 AM [facility] Urea Nitrogen 18 8 - 28 05/02/2017 [facility] mg/dL 8:31 AM [facility] Creatinine 0.96 0.70 - 05/02/2017 [facility] 1.30 mg/dL 8:31 AM [facility] Sodium 139 136 - 145 05/02/2017 [facility] mmol/L 8:31 AM [facility] Potassium 3.9 3.5 - 5.0 05/02/2017 [facility] mmol/L 8:31 AM [facility] Chloride 109 (H) 98 - 107 05/02/2017 [facility] mmol/L 8:31 AM [facility] Carbon Dioxide 24 22 - 31 05/02/2017 [facility] (CO2) mmol/L 8:31 AM [facility] Anion Gap 6 5 - 18 05/02/2017 [facility] mmol/L 8:31 AM [facility] GFR Estimate If >60 >60 05/02/2017 [facility] Black mL/min/1.7 8:[address] LABORATORY GFR Estimate >60 >60 05/02/2017 [facility] mL/min/1.7 8:[address] LABORATORY Specimen Anatomical Collection Method / Collection Time Recei nona Time (Source) Location / Volume Laterality Blood specimen STRUCTURE OF LEFT Venipuncture / 05/02/2017 8:07 02/2018 8:10 (specimen) UPPER LIMB / Unknown AM SAIL FINISHER MACHINE AM SAIL FINISHER MACHINE Unknown Narrative [facility] - 05/02/2017 8:31 AM SAIL FINISHER MACHINE Fasting Glucose reference range is 70-99 mg/dL per [place] [employer] (ADA) addie rojas. Yadira Draper MD LAB - BLOOD ORDERABLES Performing Organization Address City/State/ZIP Code Phon e Number O LABORATORY [facility] [place] [address] [place] [address] [facility]-. [address] [place] [address] [facility] [address] [address], [facility] Crossmatch red cells (05/02/2017 12:04 AM SAIL FINISHER MACHINE) [facility] gist Method Time Signature Crossmatch Compatible 05/02/2017 [facility] BLOOD 12:04 AM BANK SAIL FINISHER MACHINE BLOOD [id number] 05/02/2017 [facility] BLOOD EXPIRATION 12:04 AM BANK DATE SAIL FINISHER MACHINE Unit ABO/RH O Pos 05/02/2017 [facility] BLOOD 12:04 AM BANK SAIL FINISHER MACHINE Unit Number [id number] 05/02/2017 [facility] BLOOD 12:04 AM BANK SAIL FINISHER MACHINE Status Transfused 05/02/2017 [facility] BLOOD 12:04 AM BANK SAIL FINISHER MACHINE Component Red Blood Cells 05/02/2017 [facility] BLOOD 12:04 AM BANK SAIL FINISHER MACHINE Product Code [id number] 05/02/2017 [facility] BLOOD 12:04 AM BANK SAIL FINISHER MACHINE ISSUE DATE AND [id number] 05/02/2017 [facility] BLOOD TIME 12:04 AM BANK SAIL FINISHER MACHINE BLOOD TYPE 5100 05/02/2017 [facility] BLOOD 12:04 AM BANK SAIL FINISHER MACHINE CODING SYSTEM [id number] 05/02/2017 [facility] BLOOD 12:04 AM BANK SAIL FINISHER MACHINE Specimen (Source) Anatomical Location Collection Method / Collectio n Time Received Time / Laterality Volume Derian Yeager MD LAB - BLOOD BANK PRODUCT ORD ER Performing Organization Address City/State/ZIP Code Phon e Number [facility] [address] [place] [address] [facility] [address] [place] [address] Crossmatch red cells (05/02/2017 12:04 AM SAIL FINISHER MACHINE) [facility] Method Time Signature Crossmatch Compatible 05/02/2017 [facility] BLOOD 12:04 AM BANK SAIL FINISHER MACHINE BLOOD [id number] 05/02/2017 [facility] BLOOD EXPIRATION 12:04 AM BANK DATE SAIL FINISHER MACHINE Unit ABO/RH O Pos 05/02/2017 [facility] BLOOD 12:04 AM BANK SAIL FINISHER MACHINE Unit Number [id number] 05/02/2017 [facility] BLOOD 12:04 AM BANK SAIL FINISHER MACHINE Status Transfused 05/02/2017 [facility] BLOOD 12:04 AM BANK SAIL FINISHER MACHINE Component Red Blood Cells 05/02/2017 [facility] BLOOD 12:04 AM BANK SAIL FINISHER MACHINE Product Code [id number] 05/02/2017 [facility] BLOOD 12:04 AM BANK SAIL FINISHER MACHINE ISSUE DATE AND [id number] 05/02/2017 [facility] BLOOD TIME 12:04 AM BANK SAIL FINISHER MACHINE BLOOD TYPE 5100 05/02/2017 [facility] BLOOD 12:04 AM BANK SAIL FINISHER MACHINE CODING SYSTEM [id number] 05/02/2017 BLOOD 12:04 AM BANK SAIL FINISHER MACHINE Specimen (Source) Anatomical Location Collection Method / Collectio n Time Received Time / Laterality Volume Derian Yeager MD LAB - BLOOD BANK PRODUCT ORD ER Performing Organization Address City/State/ZIP Code Phon e Number [facility] [address] [place] [address] BLOOD BANK [address] [place] [address] Glucose by meter POCT (05/01/2017 9:09 PM [facility]) athologist Signature GLUCOSE BY 187 mg/dL 05/01/2017 [facility] METER POCT 9:09 PM [facility]OSPITAL POCT RESULTS Comment: Reference Ranges [...] specimen 05/01/2017 9:09 PM 018 9:16 (specimen) SAIL FINISHER MACHINE PM SAIL FINISHER MACHINE Historical Provider LAB - ENTER/EDIT POCT Performing Organization Address City/[facility]/ZIP [facility] Phon e Number [facility] POCT RESULTS [address] [address] (ABNORMAL) Hemoglobin (05/01/2017 7:21 PM SAIL FINISHER MACHINE) athologist Signature Hemoglobin 11.4 (L) 14.0 - 05/01/2017 [facility] 18.0 g/dL 7:29 PM [facility] Specimen Anatomical Collection Method / Collection Time Recei nona Time (Source) Location / Volume Laterality Blood specimen STRUCTURE OF RIGHT Venipuncture / 05/01/2017 7:21 7:26 (specimen) HAND / Unknown Unknown PM SAIL FINISHER MACHINE PM SAIL FINISHER MACHINE Naresh Grant MD LAB - BLOOD ORDERABLES Performing Organization Address City/State/ZIP Code Phon [place] [address] [address] [facility] Glucose by meter POCT (05/01/2017 5:47 PM [facility]) P athologist Signature GLUCOSE BY 211 mg/dL 05/01/2017 [facility] METER POCT 5:47 PM [facility]OSPITAL POCT RESULTS Comment: Reference Ranges [...] specimen 05/01/2017 5:47 PM 018 5:48 (specimen) SAIL FINISHER MACHINE PM SAIL FINISHER MACHINE Historical Provider LAB - ENTER/EDIT POCT Performing Organization Address City/State/ZIP Code Phon e Number [facility] POCT RESULTS [address] [place] [address] (ABNORMAL) Hemoglobin (05/01/2017 12:12 PM SAIL FINISHER MACHINE) athologist Signature Hemoglobin 10.8 (L) 14.0 - 05/01/2017 [facility] 18.0 g/dL 12:20 PM SAIL FINISHER MACHINE [facility] Specimen Anatomical Collection Method Collection Time Receive d Time (Source) Location / / Volume Laterality Blood specimen VAD(CVC, PICC) / 05/01/2017 12:12 05/01 (specimen) Unknown PM SAIL FINISHER MACHINE 12:12 PM SAIL FINISHER MACHINE (Line) Derian Yeager MD LAB - BLOOD ORDERABLES Performing Organization Address City/State/ZIP Code Ph[place] [address] [facility]-[address] [address] [facility] Glucose by meter POCT (05/01/2017 11:20 AM SAIL FINISHER MACHINE) athologist Signature GLUCOSE BY 220 mg/dL 05/01/2017 [facility] METER POCT 11:20 AM [facility]OSPITAL POCT RESULTS Comment: Reference Ranges [...] Blood specimen 05/01/2017 11:20 8 (specimen) AM SAIL FINISHER MACHINE 11:25 AM SAIL FINISHER MACHINE Historical Provider LAB - ENTER/EDIT POCT Performing Organization Address City/State/[facility] Code Phon e Number [facility] POCT RESULTS [address] [place] [address] XR Abdomen Port 1 View (05/01/2017 10:47 AM SAIL FINISHER MACHINE) Anatomical Region Laterality Modality Abdomen/Pelvis Other Specimen (Source) Anatomical Location Collection Method / Collectio n Time Received Time / Laterality Volume Narrative 05/01/2017 10:54 AM SAIL FINISHER MACHINE XR ABDOMEN AP PORTABLE 05/01/2017 10:47 AM [...] Glucose by meter POCT (05/01/2017 10:05 AM SAIL FINISHER MACHINE) P athologist Signature GLUCOSE BY 172 mg/dL 05/01/2017 [facility] POCT 10:05 AM [facility] POCT RESULTS Comment: Reference Ranges ? Age [...] Blood specimen 05/01/2017 10:05 8 (specimen) AM SAIL FINISHER MACHINE 10:06 AM SAIL FINISHER MACHINE Historical Provider LAB - ENTER/EDIT POCT Performing Organization Address City/State/ZIP Code Phon e Number [facility] POCT RESULTS [address] [place] [address] (ABNORMAL) Blood gas arterial (05/01/2017 10:00 AM SAIL FINISHER MACHINE) [facility] Method Time Signature pH Arterial 7.34 (L) 7.37 - 7.44 05/01/2017 [facility] 10[facility] pCO2 Arterial 35 35 - 45 mm 05/01/2017 [facility] Hg 10:14 [facility] pO2 Arterial 162 (H) 75 - 85 mm 05/01/2017 [facility] Hg 10:14 [facility] Bicarbonate, 20.1 (L) 23.0 - 29.0 05/01/2017 [facility] Arterial Calc mmol/L 10:14 AM [facility] O2 Sat, Arterial 99.4 (H) 95.0 - 96.0 05/01/2017 [facility] % 10:14 AM [facility] Oxyhemoglobin 97.7 (H) 95.0 - 96.0 05/01/2017 [facility] % 10:14 AM [facility] Base -6.2 mmol/L 05/01/2017 [facility] Excess/Deficit 10:14 AM [facility] Ventilation Mode VCV 05/01/2017 [facility] 10:14 [facility] Rate 18 rr/min 05/01/2017 [facility] 10:14 AM [facility] Flow 2.0 LPM 05/01/2017 [facility] 10:14 [facility] Peep 6 cm H2O 05/01/2017 [facility] 10:14 [facility] Sample Stabilized 37.0 degrees C 05/01/2017 [facility] Temperature 10:14 AM [facility] Ventilator Tidal 561 mL 05/01/2017 [facility] Volume 10:14 AM [facility] Specimen Anatomical Collection Method Collection Time Receive d Time (Source) Location / / Volume Laterality Arterial blood 05/01/2017 10:00 8 specimen AM SAIL FINISHER MACHINE 10:10 AM SAIL FINISHER MACHINE (specimen) (Line) Derian Yeager MD LAB - BLOOD ORDERABLES Performing Organization Address City/State/ZIP Code Phon [place] [address] [address] [facility] (ABNORMAL) Basic metabolic panel (05/01/2017 10:00 AM SAIL FINISHER MACHINE) Analysis Performed At Patho logist Time Signature Sodium 136 136 - 145 05/01/2017 [facility] mmol/L 10:26 AM [facility] Potassium 5.1 (H) 3.5 - 5.0 05/01/2017 [facility] mmol/L 10:26 AM [facility] Chloride 107 98 - 107 05/01/2017 [facility] mmol/L 10:26 AM [facility] Carbon Dioxide 17 (L) 22 - 31 05/01/2017 [facility] (CO2) mmol/L 10:26 AM [facility] Anion Gap 12 5 - 18 05/01/2017 [facility] mmol/L 10:26 AM [facility] Glucose 228 (H) 70 - 125 05/01/2017 [facility] mg/dL 10:26 AM [facility] Calcium 8.3 (L) 8.5 - 10.5 05/01/2017 [facility] mg/dL 10:26 AM [facility] Urea Nitrogen 15 8 - 28 05/01/2017 [facility] mg/dL 10:26 [facility] Creatinine 1.16 0.70 - 05/01/2017 [facility] 1.30 mg/dL 10:26 [facility] GFR Estimate If >60 >60 05/01/2017 [facility] Black mL/min/1.7 10:[address] LABORATORY GFR Estimate >60 >60 05/01/2017 [facility] mL/min/1.7 10:[address] Specimen Anatomical Collection Method / Collection Time Recei nona Time (Source) Location / Volume Laterality Blood specimen Venipuncture / 05/01/2017 10:00 018 (specimen) Unknown AM SAIL FINISHER MACHINE 10:10 AM SAIL FINISHER MACHINE (Line) Narrative [facility] - 05/01/2017 10:26 AM SAIL FINISHER MACHINE Fasting Glucose reference range is 70-99 mg/dL per [place] [employer] (ADA) addie rojas. Derian Yeager MD LAB - BLOOD ORDERABLES Performing Organization Address [facility] [place] [address] [phone] [address] [facility] [address] [place] [address], [facility] Magnesium (05/01/2017 10:00 AM SAIL FINISHER MACHINE) P athologist Signature Magnesium 2.2 1.8 - 2.6 05/01/2017 [facility] mg/dL 10:30 AM SAIL FINISHER MACHINE [facility] Specimen Anatomical Collection Method / Collection Time Recei nona Time (Source) Location / Volume Laterality Blood specimen Venipuncture / 05/01/2017 10:00 018 (specimen) Unknown AM SAIL FINISHER MACHINE 10:10 AM SAIL FINISHER MACHINE (Line) Derian Yeager MD LAB - BLOOD ORDERABLES Performing Organization Address City/[facility] [place] [address] [phone]-[facility] [address] [facility] (ABNORMAL) Hemoglobin (05/01/2017 9:55 AM SAIL FINISHER MACHINE) P athologist Signature Hemoglobin 9.2 (L) 14.0 - 18.0 05/01/2017 HE[facility] g/dL 10:05 AM SAIL FINISHER MACHINE [facility] Specimen Anatomical Collection Method / Collection Time Recei nona Time (Source) Location / Volume Laterality Blood specimen Venipuncture / 05/01/2017 9:55 05/01/19 18 (specimen) Unknown AM SAIL FINISHER MACHINE 10:01 AM SAIL FINISHER MACHINE Derian Yeager MD LAB - BLOOD ORDERABLES Performing Organization Address City/State/[facility] Code Phon [place] [address] [facility] [address] [place] [address] [facility]ORY Surgical Pathology Exam (05/01/2017 9:49 AM SAIL FINISHER MACHINE) [facility] gist Method Time Signature Case Report Surgical Pathology Report ? Case: [id number] ? 05/03/2017 [facility] Authorizing Provider: ??Josiah Grant MD ?Collected: ? 05/01/2017 0949 ? 1:03 PM SAIL FINISHER MACHINE [facility] Ordering Location: ? [facility] OR ?? Received: ?05/01/2017 1118 ? DONTE Drake Pathologist: ? Frederic Escalante MD ? LABORATORY Specimen: ?Spleen ? Final RESECTED SPLEEN: 05/03/2017 [facility] Diagnosis ??- ??NO HISTOLOGIC ABNORMALITY 1:03 PM SAIL FINISHER MACHINE [facility] 8 at ??1:03 PM [facility] Microscopic Microscopic 05/03/2017 [facility] Description examination 1:03 PM [facility] performed, [facility] substantiating LABORATORY the above diagnosis. Clinical Pre-op Diagnosis: Morbid obesity [E66.01] 05/03/2017 [facility] Information Time Placed in Formalin: Not provided 1:03 PM [facility] Gross The specimen is 05/03/2017 [facility] Description received in 1:03 PM [facility], labeled [facility] with the LABORATORY patient's name [...] lymphoid follicles and no discrete lesions. Three outside dealer sales representative sections are submitted. JPL:klj Charges CPT: 84738 05/03/2017 [facility] ICD-10: E66.01 1:03 PM [facility] Result Flag Normal 05/03/2017 [facility] 1:03 PM [facility] Comment: SPECIMEN PROCESSING: All histology slide preparation and stai ns; and cytology slide preparation, staining, and wind turbine engineer screening done at [facility] are performed at [facility], [address] [place] [address], [id number], with final interpretatio n, frozen section analysis, and cytology adequacy assessment at indicated laboratory. Specimen Anatomical Collection Method Collection Time Receive d Time (Source) Location / / Volume Laterality Tissue specimen SPLENIC STRUCTURE 05/01/2017 9:49 AM 0 05/01/2017 (specimen) / Unknown SAIL FINISHER MACHINE 11:18 AM SAIL FINISHER MACHINE Naresh PIÑA - JUDIE LOPEZ Performing Organization Address City/State/ZIP Code Phon [place] [address] [address] [facility] EXTRA BLUE TOP TUBE (05/01/2017 9:30 AM SAIL FINISHER MACHINE) Specimen Anatomical Collection Method / Collection Time Recei nona Time (Source) Location / Volume Laterality Blood specimen Venipuncture / 05/01/2017 9:30 05/01/19 18 9:39 (specimen) Unknown AM SAIL FINISHER MACHINE AM SAIL FINISHER MACHINE Naresh Grant MD LAB - BLOOD ORDERABLES (ABNORMAL) CBC with platelets (05/01/2017 9:30 AM SAIL FINISHER MACHINE) [facility] Method Time Signature WBC 18.8 (H) 4.0 - 11.0 05/01/2017 [facility] th/uL 9:46 AM [facility] RBC Count 3.66 (L) 4.40 - 05/01/2017 [facility] 6.20 9:46 AM [facility] Hemoglobin 10.1 (L) 14.0 - 05/01/2017 [facility] 18.0 g/dL 9:46 AM [facility] Hematocrit 31.0 (L) 40.0 - 05/01/2017 [facility] 54.0 % 9:46 AM [facility] MCV 85 80 - 100 05/01/2017 [facility] fL 9:46 AM [facility] MCH 27.6 27.0 - 05/01/2017 [facility] 34.0 pg 9:46 AM [facility] MCHC 32.6 32.0 - 05/01/2017 [facility] 36.0 g/dL 9:46 AM [facility] RDW 13.7 11.0 - 05/01/2017 [facility] 14.5 % 9:46 AM [facility] Platelet Count 175 140 - 440 05/01/2017 [facility]/uL 9:46 AM [facility] Mean Platelet 12.2 8.5 - 12.5 05/01/2017 [facility] Volume fL 9:46 AM [facility] Specimen Anatomical Collection Method / Collection Time Recei nona Time (Source) Location / Volume Laterality Blood specimen Venipuncture / 05/01/2017 9:30 05/01/19 18 9:37 (specimen) Unknown AM [employer]ACHINE AM [employer]ACHINE (Line) Derian Yeager MD LAB - BLOOD ORDERABLES Performing Organization Address City/[facility]/ZIP Code [place] [address] [facility] [address] [facility] [place] [id number] [facility]ORY TYPE AND SCREEN, ADULT (05/01/2017 9:30 AM [employer]ACHINE) P athologist Signature ABO/RH(D) O POS 05/01/2017 [facility] 10:08 AM [employer] Antibody Negative Negative 05/01/2017 BLOOD BANK Screen 10:08 AM SAIL FINISHER MACHINE Specimen Anatomical Collection Method Collection Time Receive d Time (Source) Location / / Volume Laterality Blood specimen VAD(CVC, PICC) / 05/01/2017 9:30 AM 01/2018 9:41 (specimen) Unknown SAIL FINISHER MACHINE AM SAIL FINISHER MACHINE Derian Yeager MD LAB - BLOOD BANK TEST ORDER Performing Organization Address City/State/ZIP Code Phon e Number [facility] [address] [place] [address] BLOOD BANK [address] [place] [address] Glucose by meter POCT (05/01/2017 8:21 AM SAIL FINISHER MACHINE) P athologist Signature GLUCOSE BY 138 mg/dL 05/01/2017 [facility] METER POCT 8:21 AM [facility] POCT RESULTS Comment: Reference Ranges [...] specimen 05/01/2017 8:21 AM 018 8:22 (specimen) SAIL FINISHER MACHINE AM [facility] Historical Provider LAB - ENTER/EDIT POCT Performing Organization Address City/State/ZIP Code Phon e Number [facility] POCT RESULTS [address] [place] [address] Glucose by meter POCT (05/01/2017 6:03 AM [facility]) athologist Signature GLUCOSE BY 175 mg/dL 05/01/2017 [facility] POCT 6:03 AM [facility] POCT RESULTS Comment: Reference Ranges ? Age [...] specimen 05/01/2017 6:03 AM 018 6:05 (specimen) SAIL FINISHER MACHINE AM SAIL FINISHER MACHINE Historical Provider LAB - ENTER/EDIT POCT Performing Organization Address City/State/ZIP Code Phon e Number [facility] POCT RESULTS [address] [place] [address] documented in this encounter Visit Diagnoses Diagnosis Type 2 diabetes mellitus with complicati on, unspecified rodent exterminator insulin use status documented in this encounter Care Teams Climatology Professor Relationship Specialty Start Date End Date Benjamin Henao MD PCP - General Internal Medicine 07/24/16 [address] [place] [address] documented as of this encounter
--- OUTSIDE RECORDS SUMMARY | 2022-03-05 07:54 | XMS_ITS | Encounter Summary ---
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 He also had a wound infection. He is finally overcoming allof this and is starting to feel better. He has lost about 50 pounds since surgery and over the last 2 weeks he has had some significant dizziness when standing. He is hypotensive today. He is on a atenolol and losartan for his blood pressure, and is wondering if he can come off of these. He is otherwise feeling well today. Energy is returning. Objective: Vital signs are as per the EMR. General the patient is alert pleasant and in no acute distress. He appears healthy. Assessment and plan: Hypotension. This is likely secondary to his significant weight loss. I am going to stop his a atenolol and he will continue his losartan. He will follow-up in 2-3 weeks for reevaluation. [employer] TE[employer]ER documented in this encounter Plan of Treatment Not on filedocumented as of this encounter Visit Diagnoses Diagnosis Hypotension Hypotension, unspecified documented in this encounter Care Teams Marine Equipment Test Engineer Relationship Specialty Start Date End Date Benjamin Henao MD PCP - General Internal Medicine 07/24/[address] [place] [address] documented as of this encounter
--- OUTSIDE RECORDS SUMMARY | 2022-03-05 07:54 | XMS_ITS | Encounter Summary ---
:1945 Author Organization [place] Address [address] [place] [address] Care Team Providers Name Role Phone Benjamin Henao MD Unavailable Benjamin Henao MD Primary Care Provider Encounter Details Date Type Department Care Team Description 10/09/2017 Records - [facility] CONVERSION Provider, Winter jacobsen Social History [...] on filedocumented in this encounter Care Teams Still Operator Whiskey Relationship Specialty Start Date End Date Benjamin Henao MD PCP - General Internal Medicine 07/24/[address] [place] [address] Benjamin Henao MD Assigned PCP 10/05/[address] [place] [address] documented as of this encounter
--- OUTSIDE RECORDS SUMMARY | 2022-03-05 07:54 | XMS_ITS | Encounter Summary ---
:1945 Author Organization [place] Address [address] [place] [address] Care Team Providers Name Role Phone Benjamin Henao MD Primary Care Provider Encounter Details Date Type Department Care Team Description 04/30/2017 [facility]est[facility] MD [address] [place] [address] [place], [place] [phone] [address] Social History Tobacco Use Types Packs/Day Years Used Date Smoking Tobacco: Former Cigarettes Quit : 08/27/1989 Alcohol Use Standard Drinks/Week Comments Yes 0 (1 standard drink = 0.6 oz pure alcoho l) Sex Assigned at Date Recorded Not on file documented as of this encounter OR Notes Anesthesia Procedure Notes - Mandy Yeager R - 05/01/2017 12:08 PM ACCOUNT ENGINEER Arterial Line Reason for Procedure: hemodynamic monitoring and multiple ABGs Patient location during procedure: OR post-induction Start time: 05/01/2017 9:22 AM End time: 05/01/2017 9:28 AM Staffing: Performing Anesthesiologist: MANDY YEAGER Sterile Precautions: sterile barriers used during insertion: cap, mask, sterile gloves, large sheet, and hand hygiene used. Arterial Line: Immediately prior to procedure a time out was called to verify the correct patient, procedure, equipment, program support assistant and site/side marked as required Laterality: right Location: radial Prepped with: ChloroPrep Needle gauge: 20 G Number of Attempts: 1 Secured with: tape, transparent dressing and pressure dressing Flushed with: saline 1% lidocaine local anesthesia used for skin prep. See MAR for additional medications given. 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; SPLENECTOMY Anesthesia type: general Patient location: PACU Last vitals: Vitals: 05/01/17 1540 BP: 148/69 Pulse: 77 Resp: 20 Temp: 36.7 ??C (98 ??F) SpO2: 97% Post vital signs: stable Level of consciousness: awake, alert and oriented Post-anesthesia pain: pain controlled Post-anesthesia nausea and vomiting: no Pulmonary: unassisted, nasal cannula Cardiovascular: stable and blood pressure at baseline Hydration: adequate Anesthetic events: no QCDR Measures: ASA# 11 - Honey-op Cardiac Arrest: ASA11B - Patient did NOT experience unanticipated cardiac arrest ASA# 12 - Honey-op Mortality Rate: ASA12B - Patient did NOT ASA# 13 - PACU Re-Intubation Rate: ASA13B - Patient did NOT require a new airway mgmt ASA# 10 - Composite Anes Safety: ASA10A - No serious adverse event Additional Notes: Significant EBL during surgery with 2 PRBC transfused. Pt aware and doing very well. VSS. Pain well controlled. UNT ENGINEER Anesthesia Preprocedure Evaluation - Mandy Yeager MD - 04/30/2017 5:12 PM CST Images from the original note were not included. Anesthesia Preprocedure Evaluation by Mandy Yeager MD at 04/30/2017 5:12 PM Author: Mandy Yeager MD Service: -- Author Type: Physician Filed: 05/01/2017 6:53 AM Date of Service: 04/30/2017 5:12 PM Status: Addendum Supervisor Cooler Service: Mandy Yeager MD (Physician) Related Notes: Original Note by Mandy Yeager MD (Physician) filed at 04/30/2017 5:22 PM Anesthesia Evaluation Patient summary reviewed History of anesthetic complications Airway Mallampati: III Neck ROM: full Comment: Obese Pulmonary - normal exam breath sounds clear to auscultation (+) sleep apnea on CPAP, , a smoker (Former) Cardiovascular - normal exam Exercise tolerance: > or = 4 METS (+) hypertension, CAD, , hypercholesterolemia, (-) murmur ECG reviewed Rhythm: regular Rate: normal, no murmur Neuro/Psych - negative ROS Endo/Other (+) diabetes mellitus type 2 using insulin, obesity (BMI 47), Comments: Microcytic anemia GI/Hepatic/Renal (+) hiatal hernia, GERD well controlled, Other findings: XR CHEST 2 VIEWS 04/08/2017 1:38 PM ?? INDICATION: Pre-op Bariatric Surgery Evaluation COMPARISON: CT 04/28/2015 ?? FINDINGS: Stable hiatal hernia. Lungs are clear. Dental (+) caps Anesthesia Plan Planned anesthetic: general endotracheal RSI with succinylcholine Glidescope Ketamine 50 mg IV for pain Pt okay with TAP block for post operative pain control Precedex Lidocaine infusion Magnesium 1 gm/hour x 4 hours Monitor BS Phenylephrine inline for induction Decadron 4 mg IV Zofran ASA 3 Induction: intravenous Anesthetic plan and risks discussed with: patient and spouse Anesthesia plan special considerations: video-assisted, rapid sequence induction, increased risk of difficult airway, antiemetics, dexmedetomidine Post-op plan: routine recovery UNT ENGINEER documented in this encounter Miscellaneous Notes Anesthesia Care Transfer Note - Lorna Cardenas APRN CRNA - 05/01/2017 11:19 AM CST Last vitals: Vitals: 05/01/17 1119 BP: 113/48 Pulse: 71 Resp: 16 Temp: 36.8 ??C (98.2 ??F) SpO2: 100% Patient's level of consciousness is awake Spontaneous respirations: yes Maintains airway independently: yes Dentition unchanged: yes Oropharynx: oropharynx clear of all foreign objects QCDR Measures: ASA# 20 - Surgical Safety Checklist: WHO surgical safety checklist completed prior to induction PQRS# 430 - Adult PONV Prevention: 4558F - Pt received => 2 anti-emetic agents (different classes) preop & intraop ASA# 8 - Peds PONV Prevention: NA - Not pediatric patient, not GA or 2 or more risk factors NOT present PQRS# 424 - Honey-op Temp Management: 4559F - At least one body temp DOCUMENTED => 35.5C or 95.9F within required timeframe PQRS# 426 - PACU Transfer Protocol:G9655 - Transfer of care checklist used ASA# 14 - Acute Post-op Pain: ASA14B - Patient did NOT experience pain >= 7 out of 10 Breathing spontaneously with adequate tidal volume, patient opens eyes to name, oral pharynx suctioned, and ETT removed with good air exchange. UNT ENGINEER documented in this encounter Plan of Treatment Not on filedocumented as of this encounter Visit Diagnoses Not on filedocumented in this encounter Care Teams Virtual Assistant For Advertisers Relationship Specialty Start Date End Date Benjamin Henao MD PCP - General Internal Medicine 07/24/[address] [place], [place] [phone] documented as of this encounter
--- OUTSIDE RECORDS SUMMARY | 2022-03-05 07:54 | XMS_ITS | Encounter Summary ---
:1945 Author Organization [place] Address [address] [place] [address] Care Team Providers Name Role Phone Benjamin Henao MD Primary Care Provider Reason for Visit Reason Comments Weight Problem Post op f/u phone visit Encounter Details Date Type Department Care Team Description 05/07/2017 Communication - [facility] Gayatri Weber Weight Problem (Post [facility] and Yaquelin RN op f/u ph one visit) Bariatrics Care 17 [facility] [address] [place] [address] Social History Tobacco Use Types [...] on filedocumented in this encounter Care Teams Bench Assembly Inspector Relationship Specialty Start Date End Date Benjamin Henao MD PCP - General Internal Medicine 07/24/16 [address] [place] [address] documented as of this encounter
--- OUTSIDE RECORDS SUMMARY | 2022-03-05 07:54 | XMS_ITS | Encounter Summary ---
:1945 Author Organization [place] Address [address] [place] [address] Care Team Providers Name Role Phone Benjamin Henao MD Primary Care Provider Reason for Visit Reason Comments Diabetes status check post bariatric surgery Encounter Details Date Type Department Care Team Description 05/31/2017 Communication - [facility] Kisha Krishna (status [facility] and MD Santos check post bariatric Bariatrics Care [address]... [address] [phone] Social History Tobacco Use Types Packs/Day Years [...] on filedocumented in this encounter Care Teams Shell Fisherman Relationship Specialty Start Date End Date Benjamin Henao MD PCP - General Internal Medicine 07/24/16 [address] [place], [place] [phone] (work) documented as of this encounter
--- OUTSIDE RECORDS SUMMARY | 2022-03-05 07:54 | XMS_ITS | Encounter Summary ---
:1945 Author Organization [place] Address [address] [place] [address] Care Team Providers Name Role Phone Benjamin Henao MD Primary Care Provider Encounter Details Date Type Department Care Team Description 05/14/2017 Communication - [facility] Naresh Grant MD [facility] and [address] [place] [address] [place] [address] [place] [address] ([address] [place] [address] Social History Tobacco Use Types [...] filedocumented in this encounter Care Teams Service Attendant Relationship Specialty Start Date End Date Benjamin Henao MD PCP - General Internal Medicine 07/24/16 [address] [place], [place] [phone] documented as of this encounter
--- OUTSIDE RECORDS SUMMARY | 2022-03-05 07:54 | XMS_ITS | Encounter Summary ---
:1945 Author Organization [place] Address [address] [place] [address] Care Team Providers Name Role Phone Benjamin Henao MD Primary Care Provider Reason for Visit Reason Comments Nutrition Counseling Encounter Details Date Type Department Care Team Description 07/22/2017 Office Visit - [facility] ProviderSahil surgery status; [facility] and Historical Obesity ( BMI 30-39.9); Bariatrics Care Dietary coun seling [address] [address] Social History Tobacco Use Types [...] iron 2x/day, calcium citrate 400-600 mg 2x/day, 2729-5872 mcg of Sublingual B-12 daily, and 5000 [...] 2x/day, calcium citrate 400- 600 mg 2x/day, 5542-5549 mcg of Sublingual B-12 daily, and 5000 [...] counseling documented in this encounter Care Teams Cloth Calender Relationship Specialty Start Date End Date Benjamin Henao MD PCP - General Internal Medicine 07/24/16 [address] [place] [address] documented as of this encounter"
--- OUTSIDE RECORDS SUMMARY | 2022-03-05 07:54 | XMS_ITS | Encounter Summary ---
:1945 Author Organization [place] Address [address] [place] [address] Care Team Providers Name Role Phone Benjamin Henao MD Primary Care Provider Encounter Details Date Type Department Care Team Description 05/01/2017 Surgery - [facility] Naresh Grant MD [phone] [place] [address] (Wo rk) [address] [phone] Social History Tobacco Use Types Packs/Day Years [...] (303 lb 6.4 oz) 05/03/2017 11:06 AM KEYBOARD INSTRUMENT REPAIRER Height 172.7 cm (5' 8) 05/01/2017 6:19 AM KEYBOARD INSTRUMENT REPAIRER Body Mass Index 46.13 05/01/2017 6:19 AM KEYBOARD INSTRUMENT REPAIRER documented in this encounter Plan of Treatment Not on filedocumented as of this encounter Visit Diagnoses Not on filedocumented in this encounter Care Teams Instructor Dramatic Arts Relationship Specialty Start Date End Date Benjamin Henao MD PCP - General Internal Medicine 07/24/16 [address] [place] [address] documented as of this encounter
--- OUTSIDE RECORDS SUMMARY | 2022-03-05 07:54 | XMS_ITS | Encounter Summary ---
:1945 Author Organization [place] Address [address] [place] [address] Care Team Providers Name Role Phone Benjamin Henao MD Primary Care Provider Reason for Visit Reason Comments Appointment want to see Dr Benjamin Henao for bp check and diabetes on Jun 13 Encounter Details Date Type Department Care Team Description 06/11/2017 [facility] [place], Ivan o[facility] (want [facility] Jose R FORTUNE to see Dr Benjamin Perez 18[address] [facility] ... [address] [place] [phone] Social History Tobacco Use Types Packs/Day Years [...] on filedocumented in this encounter Care Teams Coordinator Volunteer Services Relationship Specialty Start Date End Date Benjamin Henao MD PCP - General Internal Medicine 07/24/161824 [place] [address] documented as of this encounter
--- OUTSIDE RECORDS SUMMARY | 2022-03-05 07:54 | XMS_ITS | Encounter Summary ---
:1945 Author Organization [place] Address [address] [place] [address] Care Team Providers Name Role Phone Benjamin Henao MD Primary Care Provider Reason for Visit Reason Comments Nutrition Counseling Encounter Details Date Type Department Care Team Description 06/06/2017 [facility] Bariatric surgery status; [facility] and Obesity, morbid, BMI 40.0-49.9 (H); Bariatrics Care Nutritional counseling [address] [address] Social History Tobacco Use Types [...] counseling documented in this encounter Care Teams Roller Varnisher Relationship Specialty Start Date End Date Benjamin Henao MD PCP - General Internal Medicine 07/24/[address] [place] [address] documented as of this encounter
--- OUTSIDE RECORDS SUMMARY | 2022-03-05 07:54 | XMS_ITS | Encounter Summary ---
:1945 Author Organization [place] Address [address] [place] [address] Care Team Providers Name Role Phone Benjamin Henao MD Primary Care Provider Reason for Visit Reason Comments Diabetes Encounter Details Date Type Department Care Team Description 06/03/2017 [facility] Santos Krishna Diabe [facility] and Bariatrics Care [address] [place] [phone] Social History Tobacco Use Types Packs/Day Years [...] on filedocumented in this encounter Care Teams Chaperone Relationship Specialty Start Date End Date Benjamin Henao MD PCP - General Internal Medicine 07/24/16 [address] [place] [address] documented as of this encounter
--- OUTSIDE RECORDS SUMMARY | 2022-03-05 07:54 | XMS_ITS | Encounter Summary ---
:1945 Author Organization [place] Address [address] [place] [address] Care Team Providers Name Role Phone Benjamin Henao MD Primary Care Provider Reason for Visit Reason Comments Diabetes Encounter Details Date Type Department Care Team Description 05/09/2017 [facility] Santos Krishna Diabe [facility] Clinic and Bariatrics Care [address] [place] [phone] Social History Tobacco Use Types Packs/Day Years [...] infection documented in this encounter Care Teams Dumb Waiter Operator Relationship Specialty Start Date End Date Benjamin Henao MD PCP - General Internal Medicine 07/24/16 [address] [place] [address] documented as of this encounter
[2022-03-05] MEDS: LACTATED RINGERS 1000 ML 500 ML IV (07:55)
--- OUTSIDE RECORDS SUMMARY | 2022-03-05 07:55 | XMS_ITS | Encounter Summary ---
:1945 Author Organization [place] Address [address] [place] [address] Care Team Providers Name Role Phone Eladio Nielsen Primary Care Provider Unavailable Benjamin Henao MD Primary Care Provider Encounter Details Date Type Department Care Team Description 11/11/2015 Ambulatory - [facility] [place] [facility] 18[address] [place] [address] [place] [address] [place] [address] Social History Tobacco Use Types [...] unspecified documented in this encounter Care Teams Farm Tractor Operator Relationship Specialty Start Date End Date Eladio Nielsen PCP - General 08/14/11 07/23/16 Benjamin Henao MD PCP - General Internal Medicine 07/24/[address] [place] [phone] documented as of this encounter
--- OUTSIDE RECORDS SUMMARY | 2022-03-05 07:55 | XMS_ITS | Encounter Summary ---
:1945 Author Organization [place] Address [address] [place] [address] Care Team Providers Name Role Phone Eladio Nielsen Primary Care Provider Unavailable Benjamin Henao MD Primary Care Provider Encounter Details Date Type Department Care Team Description 01/10/2016 [facility] Anemia [facility] [address] [place] [address] [facility] [place] [phone] Social History Tobacco Use Types Packs/Day Years [...] unspecified documented in this encounter Care Teams Rail Transit Operator Relationship Specialty Start Date End Date Eladio Nielsen PCP - General 08/14/11 07/23/16 Benjamin Henao MD PCP - General Internal Medicine 07/24/16 [address] [place] [address] documented as of this encounter
--- OUTSIDE RECORDS SUMMARY | 2022-03-05 07:55 | XMS_ITS | Encounter Summary ---
:1945 Author Organization [place] Address [address] [place] [address] Care Team Providers Name Role Phone Benjamin Henao MD Primary Care Provider Reason for Visit Reason Comments Diabetes follow up Hypertension follow up Encounter Details Date Type Department Care Team Description 07/24/2016 Office Visit - [facility] [place] Benjamin Henao, Type 2 diabetes [facility] mellitus (H) [facility] 1824 [facility] 1824 [facility] [place] [phone] Social History Tobacco Use Types Packs/Day Years [...] is going to get this through a [place] pharmacy. I will call him with results [...] consult with a bariatric medicine physician at [facility] on . He will be following up [...] OF SYSTEMS: [facility] recently [facility] exam, who informed him that he did not have indications of diabetic retinopathy. All other systems are negative. [facility]: Allergies Allergen Reactions ??? Lisinopril ??? Sibutramine [...] (ABNORMAL) Lipid Profile (07/24/2016 11:45 AM CDT) [facility] gist Method Time Signature Cholesterol 144 [...] uncontrolled documented in this encounter Care Teams Hospitality House Supervisor Relationship Specialty Start Date End Date Benjamin Henao MD PCP - General Internal Medicine 07/24/[address] [place] [address] documented as of this encounter
--- OUTSIDE RECORDS SUMMARY | 2022-03-05 07:55 | XMS_ITS | Encounter Summary ---
:1945 Author Organization [place] Address [address] [place] [address] Care Team Providers Name Role Phone Benjamin Henao MD Primary Care Provider Encounter Details Date Type Department Care Team Description 04/08/2017 Records - [facility], En counter for other Clinic Jose R Graham MD preprocedural [facility] [address] [phone] [id number] Social History Tobacco Use Types Packs/Day Years [...] Encounter for othe r Results for this PORTABLE POWER TOOL REPAIRER preprocedural procedure are in examination the results section. documented in this encounter Results XR Chest 2 Views (04/08/2017 1:38 PM PORTABLE POWER TOOL REPAIRER) Anatomical Region Laterality Modality Chest Digital Radiography Specimen (Source) Anatomical Location Collection Method / Collectio n Time Received Time / Laterality Volume Narrative 04/08/2017 3:24 PM PORTABLE POWER TOOL REPAIRER XR CHEST 2 VIEWS 04/08/2017 1:38 PM [...] ation documented in this encounter Care Teams Rn Acute Dialysis Relationship Specialty Start Date End Date Benjamin Henao MD PCP - General Internal Medicine 07/24/16 [address] [place] [address] documented as of this encounter
--- OUTSIDE RECORDS SUMMARY | 2022-03-05 07:55 | XMS_ITS | Encounter Summary ---
:1945 Author Organization [place] Address [address] [place] [address] Care Team Providers Name Role Phone Benjamin Henao MD Unavailable Benjamin Henao MD Primary Care Provider Encounter Details Date Type Department Care Team Description 08/01/2016 Records - [facility] CONVERSION Provider, Winter jacobsen Social History [...] on filedocumented in this encounter Care Teams Product Trainer Relationship Specialty Start Date End Date Benjamin Henao MD PCP - General Internal Medicine 07/24/[address] [place] [address] Benjamin Henao MD Assigned PCP 10/05/[address] [place] [address] documented as of this encounter
--- OUTSIDE RECORDS SUMMARY | 2022-03-05 07:55 | XMS_ITS | Encounter Summary ---
:1945 Author Organization [place] Address [address] [place] [address] Care Team Providers Name Role Phone Benjamin Henao MD Primary Care Provider Reason for Visit Reason Comments Diabetes follow up Encounter Details Date Type Department Care Team Description 01/11/2017 Office Visit - [facility] Benjamin Henao, Type 2 diabetes [facility] mellitus (H) [facility] [address] [address] [place] [phone] Social History Tobacco Use Types Packs/Day Years [...] uncontrolled documented in this encounter Care Teams Live Source Operator Relationship Specialty Start Date End Date Benjamin Henao MD PCP - General Internal Medicine 07/24/16 75[address] [place] [address] documented as of this encounter
--- OUTSIDE RECORDS SUMMARY | 2022-03-05 07:55 | XMS_ITS | Encounter Summary ---
:1945 Author Organization [place] Address [address] [place] [address] Care Team Providers Name Role Phone Benjamin Henao MD Primary Care Provider Reason for Visit Reason Comments Nutrition Counseling Encounter Details Date Type Department Care Team Description 12/07/2016 Office Visit - [facility] Provider, Obesity, morbid, BMI 50 or higher (H); [facility] and Historical Nutrition al counseling Bariatrics Care 17 [facility] 140 [place] [address] Social History Tobacco Use Types [...] mass index is 60.01 kg/(m^2). Calculated RMR ([place]-St Jeor equation): 2035 calories Progress made since [...] iron 2x/day, calcium citrate 500-600 mg 2x/day, 6571-1390 mcg of Sublingual B-12 daily, and 5000 [...] BMI 60. Intervention: Discussion: 1. Reviewed the [facility] to Bariatric Success handout. 2. Reviewed lean [...] distractions of tv/email/cell phone. Handouts provided: Pt. [facility] Bariatric Care Patient Handbook Monitor/Evaluation: Pt understands [...] counseling documented in this encounter Care Teams Netbackup Engineer Relationship Specialty Start Date End Date Benjamin Henao MD PCP - General Internal Medicine 07/24/[address] [place] [address] documented as of this encounter
--- OUTSIDE RECORDS SUMMARY | 2022-03-05 07:55 | XMS_ITS | Encounter Summary ---
:1945 Author Organization [place] Address [address] [place] [address] Care Team Providers Name Role Phone Eladio Nielsen Primary Care Provider Unavailable Benjamin Henao MD Primary Care Provider Reason for Visit Reason Comments Follow Up f/u on dm Encounter Details Date Type Department Care Team Description [facility]2016 [facility] Type 2 [facility] ([facility] Jose R FORTUNE [facility] Obesity, unspecified 18[address] [facility] [place] [address] Social History Tobacco Use Types Packs/Day [...] 143.3 kg (316 lb) 05/08/2016 2:52 PM FLOTATION TANK OPERATOR Height - - Body Mass Index 47.35 03/11/2015 9:10 AM FLOTATION TANK OPERATOR documented in this encounter Progress Notes [...] consult with a bariatric surgeon in the [facility]. He is agreeable to consulting with Dr. Lebron Baca with [facility]. Erectile dysfunction: He inquires about generic alternatives to brand name Viagra for his erectile dysfunction. He requests a written prescription for 10 tablets of 100 mg sildenafil to allow him to fill his prescription through either a [place] pharmacy or an alternative local pharmacy with a cheaper ritchie per [employer]. Health maintenance: He is due to receive [...] for this visit. Total data points: 1 ATION TANK OPERATOR documented in this encounter Plan of Treatment Not on filedocumented as of this encounter Procedures Procedure Name Priority Date/Time Associated Diagnosis Comme nts HEMOGLOBIN A1C Routine 05/08/2016 3:25 PM Results for this FLOTATION TANK OPERATOR procedure are i n the results section . documented in this encounter Results (ABNORMAL) Hemoglobin A1c (05/08/2016 3:25 PM FLOTATION TANK OPERATOR) Analysis Performed At Patho logist Time Signature Hemoglobin A1C 8.1 (H) 3.5 - 6.0 05/08/2016 [facility] % 3:53 PM FLOTATION TANK OPERATOR [facility] Specimen Anatomical Collection Method / Collection Time Recei nona Time (Source) Location / Volume Laterality Blood specimen Venipuncture / 05/08/2016 3:25 05/08/19 17 3:25 (specimen) Unknown PM FLOTATION TANK OPERATOR PM FLOTATION TANK OPERATOR Benjamin Henao MD LAB - BLOOD ORDERABLES Performing Organization Address City/State/ZIP Code Phon e Number [id number] [place] [address] [place] [phone] CLINIC LABORATORY documented in this encounter Visit Diagnoses Diagnosis Type 2 diabetes mellitus (H) Type II or unspecified type diabetes mando litus without mention of complication, not stated as uncontrolled Microcytic anemia Iron deficiency anemia, unspecified Obesity, unspecified documented in this encounter Care Teams International Exchange Coordinator Relationship Specialty Start Date End Date Eladio Nielsen PCP - General 08/14/11 07/23/16 Benjamin Henao MD PCP - General Internal Medicine 07/24/16 [address] [place] [address] documented as of this encounter
--- OUTSIDE RECORDS SUMMARY | 2022-03-05 07:55 | XMS_ITS | Encounter Summary ---
:1945 Author Organization [place] Address [address] [place] [address] Care Team Providers Name Role Phone Eladio Nielsen Primary Care Provider Unavailable Benjamin Henao MD Primary Care Provider Encounter Details Date Type Department Care Team Description 05/08/2016 Communication - [facility]NAYA E-VISITS Provider, Obed gross Social History Tobacco [...] on filedocumented in this encounter Care Teams Case Preparer And Liner Relationship Specialty Start Date End Date Eladio Nielsen PCP - General 08/14/11 07/23/16 Benjamin Henao MD PCP - General Internal Medicine 07/24/16 16[address] [place] [address] documented as of this encounter
--- OUTSIDE RECORDS SUMMARY | 2022-03-05 07:55 | XMS_ITS | Encounter Summary ---
:1945 Author Organization [place] Address [address] [place] [address] Care Team Providers Name Role Phone Eladio Nielsen Primary Care Provider Unavailable Benjamin Henao MD Primary Care Provider Encounter Details Date Type Department Care Team Description 11/11/2015 Communication - [facility] Benjamin Henao MD [facility] [address] [address] [place], [place] [phone] (Wo rk) [address] [phone] Social History Tobacco Use Types Packs/Day Years [...] on filedocumented in this encounter Care Teams Business Database Analyst Relationship Specialty Start Date End Date Eladio Nielsen PCP - General 08/14/11 07/23/16 Benjamin Henao MD PCP - General Internal Medicine 07/24/[address] [place] [address] documented as of this encounter
--- OUTSIDE RECORDS SUMMARY | 2022-03-05 07:55 | XMS_ITS | Encounter Summary ---
:1945 Author Organization [place] Address [address] [place] [address] Care Team Providers Name Role Phone Benjamin Henao MD Primary Care Provider Encounter Details Date Type Department Care Team Description 10/26/2016 Ambulatory - [facility] Gayatri Weber, Surgery Clinic and RN Bariatrics Care 17 [facility] 140 [place] [address] Social History Tobacco Use Types Packs/Day Years Used Date Smoking Tobacco: Former Cigarettes Quit : 08/27/1989 Alcohol Use Standard Drinks/Week Comments Yes 0 (1 standard drink = 0.6 oz pure alcoho l) Sex Assigned at Date Recorded Not on file documented as of this encounter Progress Notes Gayatri Weber, RN - 10/26/2016 1:45 PM CDT Workflow updated with initial labs. Gayatri Weber RN, CBN [facility] Surgery and Bariatric Care P [phone] F [phone] documented in this encounter Plan of Treatment Not on filedocumented as of this encounter Visit Diagnoses Not on filedocumented in this encounter Care Teams Tufter Relationship Specialty Start Date End Date Benjamin Henao MD PCP - General Internal Medicine 07/24/16 0289 [place] [address] documented as of this encounter
--- OUTSIDE RECORDS SUMMARY | 2022-03-05 07:55 | XMS_ITS | Encounter Summary ---
:1945 Author Organization [place] Address [address] [place] [address] Care Team Providers Name Role Phone Benjamin Henao MD Unavailable Benjamin Henao MD Primary Care Provider Encounter Details Date Type Department Care Team Description 08/14/2016 Records - [facility] CONVERSION Provider, Winter jacobsen Social History [...] on filedocumented in this encounter Care Teams Healthcare Administrator Relationship Specialty Start Date End Date Benjamin Henao MD PCP - General Internal Medicine 07/24/[address] [place] [address] Benjamin Henao MD Assigned PCP 10/05/[address] [place] [address] documented as of this encounter
--- OUTSIDE RECORDS SUMMARY | 2022-03-05 07:55 | XMS_ITS | Encounter Summary ---
:1945 Author Organization [place] Address [address] [place] [address] Care Team Providers Name Role Phone Benjamin Henao MD Unavailable Benjamin Henao MD Primary Care Provider Encounter Details Date Type Department Care Team Description 08/28/2016 Records - [facility] CONVERSION Provider, Winter jacobsen Social History [...] Name Priority Date/Time Associated Diagnosis Comme nts PATHOLOGY RESULT - HIM SCAN 08/28/2016 COLONOSCOPY - HIM SCAN 08/28/2016 documented in this encounter Results COLONOSCOPY - HIM SCAN (08/28/2016) Narrative This result has an attachment that is no t available. Historical Provider PROCEDURES PATHOLOGY RESULT - HIM SCAN (08/28/2016) Specimen (Source) Anatomical Location Collection Method / Collectio n Time Received Time / Laterality Volume Narrative This result has an attachment that is no t available. Historical Provider LAB - [facility] DERABLES documented in this encounter Visit Diagnoses Not on filedocumented in this encounter Care Teams Apprentice Photographer Relationship Specialty Start Date End Date Benjamin Henao MD PCP - General Internal Medicine 07/24/16 1825 [place] [address] Benjamin Henao MD Assigned PCP 10/05/201824 [place] [address] documented as of this encounter
--- OUTSIDE RECORDS SUMMARY | 2022-03-05 07:55 | XMS_ITS | Encounter Summary ---
:1945 Author Organization [place] Address [address] [place] [address] Care Team Providers Name Role Phone Benjamin Henao MD Primary Care Provider Reason for Visit Reason Comments Weight Problem Surgeon Consult for Bariatri c Surgery Encounter Details Date Type Department Care Team Description 10/02/2016 Office Visit - [facility] Naresh Grant MD Obstructive sleep apnea (adult) (pediatr ic); [facility] [address] [place] [address] Type 2 diab etes mellitus (H); and Bariatrics RD Essential hypertension with goal blood p ressure less than 130/85; [place], [place] Gastroesophageal reflux dise ase without esophagitis; [address] [address] Morbid obesity due to excess calories (H ) [address] [place], [place] (Work) [address] Social History Tobacco Use [...] - Inhaled Oxygen Concentration - - Weight 145.6 kg (321 lb) 10/02/2016 10:05 AM CDT Height 171.5 cm (5' 7.5) 10/02/2016 10:05 AM CDT Body Mass Index 49.53 10/02/2016 10:05 AM CDT documented in this encounter Progress Notes Naresh Grant MD - 10/02/2016 10:00 AM CDT HPI: Faith Adames is a 71 y.o. male here today for consideration of metabolic and bariatric surgery. He is referred by Dr. Benjamin Henao. He was also seen by Dr. Krishna, 1 of our bariatricians,who is concerned about his candidacy for surgery. He has struggled with obesity for since the mid . His weight gradually continued to increase. He developed diabetes mellitus as well as obstructivesleep apnea. His BERNADETTE is well-controlled with CPAP. His diabetes is now requiring insulin. His A1c is8.1. He denies any complications from his diabetes. He walks a treadmill for about an hour a day. Hestates he can climb a flight of stairs but he will be a little bit short of breath. He denies any marely st pain. He has no significant coronary artery disease and has been routinely getting stress tests which have been okay. He does have a strong family history of cardiac disease. He has a brother who of gastric cancer. He did have an endoscopy about a year ago that was normal. He does have some gastroesophageal reflux disease that is well controlled with the omeprazole. No esophagitis was noted on his EGD. He is interested in having surgery as he would like to be more active. He would like to get his diabetes better controlled and hopefully off his diabetic medications as well as his hypertension. To improve his BERNADETTE and if possible get off the CPAP. Allergies:Cat dander; Lisinopril; and Sibutramine Past Medical History: Diagnosis Date ??? Diabetes mellitus type 2 ??? GERD (gastroesophageal reflux disease) better with prilosec ??? Heart disease ??? Hyperlipemia ??? Hyperlipidemia ??? Hypertension ??? Intestinal polyps every 5 years, next due in 2021. ??? Pneumonia 2014. ??? Sleep apnea use cpap No past surgical history on file. CURRENT MEDS: Current Outpatient Prescriptions Medication Sig [...] for bariatric surgery by the psychologist. BP 165/75 (Patient Site: Left Arm, Patient Position: Sitting, Cuff Size: Adult Large) Pulse 64 Resp 20 Ht 5' 7.5 (1.715 m) Wt (!) 321 lb (145.6 kg) SpO2 100% BMI 49.53 kg/m2 Wt Readings from Last 3 Encounters: 10/02/16 (!) 321 lb (145.6 kg) 09/28/16 (!) 319 lb 9.6 oz (145 kg) 07/24/16 (!) 313 lb (142 kg) Body mass index is 49.53 kg/(m^2). EXAM: GENERAL: This is a well-developed 71 y.o. male who appears his stated age HEAD & NECK: Grossly normal. No palpable thyroid lesions CARDIAC: RRR without murmur CHEST/LUNG: Clear to auscultation ABDOMEN: Obese. Nontender. No hernias or masses appreciated. BACK: He does have a small 2 cm flat area of erythema in the right scapular region of his back. LYMPHATIC: No significant adenopathy appreciated. EXTREMITIES: Grossly normal. No evidence of chronic venous stasis. NEUROLOGIC: Focally intact INTEGUMENT: No open lesions or ulcers PSYCHIATRIC: Normal affect. He has a good grasp on the nature of his obesity and the treatment options. LABS: Lab Results Component Value Date WBC 9.7 05/08/2016 HGB 12.2 (L) 05/08/2016 HCT 36.8 (L) 05/08/2016 MCV 82 05/08/2016 PLT 153 05/08/2016 INR/Prothrombin Time Lab Results Component Value Date HGBA1C 8.1 (H) 07/24/2016 Lab Results Component Value Date ALT 26 07/24/2016 AST 25 07/24/2016 ALKPHOS 84 07/24/2016 BILITOT 0.7 07/24/2016 Assessment/Plan: 71 y.o. male who is interested in bariatric surgery for multiple reasons. Several of these are to improve his health while he also wants to increase his activity and to be able to do things with his children and grandchildren which has become extremely difficult. I think actually he is a good candidate for surgery. I do not see any significant cardiac, pulmonary or renal issues. He is able get up and down well. He is able to walk an hour on the treadmill without difficulty. I feel that bariatric surgery would allow him to lose a significant amount of weight, improve his medical comorbid conditions as well as allow him to be more active. He will continue to proceed through our program and will follow-up with me again once he is completed the psychological and dietary requirements so that we can discuss surgery in more detail. Naresh Grant MD [facility] Department of Surgery documented in this encounter Plan of Treatment Not on filedocumented as of this encounter Visit Diagnoses Diagnosis Obstructive sleep apnea (adult) (pediatr ic) Type 2 diabetes mellitus (H) Type II or unspecified type diabetes mando litus without mention of complication, not stated as uncontrolled Essential hypertension with goal blood p ressure less than 130/85 Gastroesophageal reflux disease without esophagitis Esophageal reflux Morbid obesity due to excess calories (H ) documented in this encounter Care Teams Toddler Teacher Relationship Specialty Start Date End Date Benjamin Henao MD PCP - General Internal Medicine 07/24/[address] [place] [address] documented as of this encounter
--- OUTSIDE RECORDS SUMMARY | 2022-03-05 07:55 | XMS_ITS | Encounter Summary ---
:1945 Author Organization [place] Address [address] [place] [address] Care Team Providers Name Role Phone Benjamin Henao MD Primary Care Provider Encounter Details Date Type Department Care Team Description 04/08/2017 [facility] [address] [place] [address] Social History Tobacco Use Types [...] on filedocumented in this encounter Care Teams Forest Fire Lookout Relationship Specialty Start Date End Date Benjamin Henao MD PCP - General Internal Medicine 07/24/16 [address] [place], [place] [phone] documented as of this encounter
--- OUTSIDE RECORDS SUMMARY | 2022-03-05 07:55 | XMS_ITS | Encounter Summary ---
:1945 Author Organization [place] Address [address] [place] [address] Care Team Providers Name Role Phone Benjamin [...] on filedocumented in this encounter Care Teams Vamp Strap Ironer Relationship Specialty Start Date End Date Benjamin Henao MD PCP - General Internal Medicine 07/24/[address] [place] [address] Benjamin Henao MD Assigned PCP 10/05/[address] [place] [address] documented as of this encounter
--- OUTSIDE RECORDS SUMMARY | 2022-03-05 07:55 | XMS_ITS | Encounter Summary ---
:1945 Author Organization [place] Address [address] [place] [address] Care Team Providers Name Role Phone Benjamin Henao MD Primary Care Provider Reason for Visit Reason Comments Weight Problem Initial Consult Encounter Details Date Type Department Care Team Description 02/05/2017 Office Visit - [facility] Naresh Grant MD Type 2 diabetes mellitus (H); [facility] [place] Obstructive sleep apnea; and Bariatrics RD Gastroesophageal reflux disease without esophagitis; Care [place], [place] Morbid obesity (H); [address] [address] Essential hypertension [place] [address] [place], [place] (Work) [address] Social History Tobacco Use [...] Pneumonia 2015. ??? Sleep apnea use cpap History reviewed. [...] majority of this visit. Naresh Grant MD [facility] Department of Surgery documented in this encounter [...] hypertension documented in this encounter Care Teams Help Desk Agent Relationship Specialty Start Date End Date Benjamin Henao MD PCP - General Internal Medicine 07/24/[address] [place] [address] documented as of this encounter
--- OUTSIDE RECORDS SUMMARY | 2022-03-05 07:55 | XMS_ITS | Encounter Summary ---
:1945 Author Organization [place] Address [address] [place] [address] Care Team Providers Name Role Phone Benjamin Henao MD Primary Care Provider Encounter Details Date Type Department Care Team Description 10/24/2016 Communication - [facility] Santos Krishna, [facility] and MD Bariatrics Care [address] [place] [id number] [place] [address] [phone] [address] (Work) [phone] Social History Tobacco Use Types Packs/Day Years [...] on filedocumented in this encounter Care Teams Weapons Officer [employer] Relationship Specialty Start Date End Date Benjamin Henao MD PCP - General Internal Medicine 07/24/16 359[address] [place] [address] documented as of this encounter
--- OUTSIDE RECORDS SUMMARY | 2022-03-05 07:55 | XMS_ITS | Encounter Summary ---
:1945 Author Organization [place] Address [address] [place] [address] Care Team Providers Name Role Phone Eladio [...] on filedocumented in this encounter Care Teams Construction Coordinator Relationship Specialty Start Date End Date Eladio Nielsen PCP - General 08/14/11 07/23/16 Benjamin Henao MD PCP - General Internal Medicine 07/24/16 78[address] [place] [address] documented as of this encounter
--- OUTSIDE RECORDS SUMMARY | 2022-03-05 07:55 | XMS_ITS | Encounter Summary ---
:1945 Author Organization [facility] Address [address] [place] [address] Care Team Providers Name Role Phone Benjamin Henao MD Primary Care Provider Encounter Details Date Type Department Care Team Description 01/07/2017 Office Visit - [facility] [place] Juan Morbid obesity (H) [facility] and Kolby, PhD Bariatrics Care [facility] AND [address] [place] [address] [address] [facility] 200 [address] [place], [place] [phone] [id number] Social History Tobacco Use Types Packs/Day Years Used Date Smoking Tobacco: Former Cigarettes Quit : 08/27/1989 Alcohol Use Standard Drinks/Week Comments Yes 0 (1 standard drink = 0.6 oz pure alcoho l) Sex Assigned at Date Recorded Not on file documented as of this encounter Progress Notes [place] Juan, PhD LP - 01/07/2017 9:30 AM CDT Health and Behavior Assessment with Intervention for Bariatric Surgery Candidates Name: Faith Adames Date of : 1945 Dates of Service: 11/05/2016, 01/07/2017 Psychological Testin12/07/2016 Report Date: 01/07/2017 Height: 5 feet 7-1/2 inches Reported Weight: 313 pounds BMI: 48.30 Anticipated Weight: 200 pounds Identifying Data: This is a 71 y.o. father of 3 children (ages 41, 38 and 34). He was referred by Naresh Grant MD at [facility] to determine readiness for bariatric surgery from a psychosocial perspective. He learned about the surgery by attending the informational me ran. 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 He also has colleagues who had surgery. Reason for Pursuing Surgery: He would like to follow through with bariatric surgery for health reasons. He also wants to improve quality of life and be more physically active. Diagnostic Impressions: Principal Diagnosis: F 54 psychological factors affecting medical condition Secondary diagnoses: Morbid obesity, high cholesterol, high blood pressure, sleep apnea on CPAP, diabetes mellitus, GERD, hiatal hernia Conclusions Recommendations: Based on the information gathered from this evaluation, this patient is now ready to follow through with bariatric surgery as soon as possible. The final decision to follow through with bariatric surgery should be done in collaboration with [facility] clinical staff. Current Treatment Plan and Aftercare Plan: This patient agrees to continue to prepare for surgery and to participate in aftercare as directed by [facility] clinical staff. This includes following up with this clinician 3-6 months post-operatively, attending the Connections support group meeting and continuing to make the lifestyle and eating changes such as documenting his eating, measuring his food, planning out his meals and increasing activity level. Special Needs or Precautions: Monitor this patient's ability to avoid mindless eating. Compliance, Motivation and Expectations (Change in Behavior): This patient has made significant changes in his eating and lifestyle. He is highly motivated to continue to make these changes post-operatively. He has realistic expectations about the surgery. Self-Perception of Readiness for Surgery: This patient rated her readiness for surgery at a 9, where10 means extremely well prepared. The following history supports the above conclusions and treatment recommendations. History of Presenting Illness: This patient has struggled with his weight by 1981. He was over 200 pounds by then. He reached 300 pounds in 1999. His highest weight is his current weight. He believes morbid obesity has affected his daily life through feeling self-conscious, having difficulty sitting in a dong at a restaurant, sitting in an airplane seat, getting in and out of a small car, putting anna seatbelt, keeping up with grandchildren as well as low endurance. Previous Attempts at Disease Management: This patient has had no significant structured weight loss in the past. The most when he ever lost was between 10 and 15 pounds. He believes he gained weight over time because he was extremely busy and fatigued. He also was not as active. He does believe that insulin has contributed to this as well. Self-Care Behaviors Day and Night Routine: This patient was asleep between 10 and 11 PM and wakes up at 6:30 AM. 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 Otherwise he spends time on the treadmill, goes to his cabin on the weekends and watches television. Boundaries and Limit Setting: Denied any difficulty setting limits with others. Self-Care and Treatment Adherence: This patient does a fairly good job of taking care of himself. His hygiene is good, he complies with medical advice given to him and gets regular physical and dental exams. Stress Management and Coping Mechanisms: This patient alison with stress, emotion and boredom by eating in the past and also exercises. Other Impulsive and Compulsive Tendencies Gambling: This patient may loyola once per year between 102 $100 each time. Compulsive Spending: Denied Credit Card Debt: Denied Bankruptcy: Denied Legal History: Denied Physical and Leisure Activities: This patient is on the treadmill 3-5 times per week at 60-90 minutes each time. Substance Use OTC and Prescription Medications: This patient denied a history of medication abuse and reportedly takes his medications as directed. Nicotine: This patient started smoking cigarettes at age 23, at most was up to 2 packs per day and quit in 1990. Alcohol: This patient started drinking alcohol as a child and now may have 1 beer per month. He denied a history of alcohol-related problems and understands the increased risk of intoxication followinga bariatric surgical procedure. Illicit Substances: This patient tried cannabis once. Typical Eating Pattern and Fluid Intake Eating Disorder-Related Behavior: This patient denied a history of misusing diuretics or laxatives, of making himself vomit to lose weight, of starving himself, of over-exercising, of taking illegal substances or of smoking cigarettes for weight control purposes. He has a history of overeating, grazing and emotional eating. Historically he tended to eat his first meal between 8 and 10 AM consisting of eggs and bread. He has a history of skipping it. Lunch was between 1 and 2 PM consisting of a sandwich, yogurt and cheese. Dinner was between 530 and 6 PM insisting of roast beef, zucchini and tomato.Later he would snack on cheese and fruit. He was having between 1 and 2 cups of coffee and between 1and 2 L of water on a daily basis. Since starting the health and behavior assessment he was eating breakfast within 90 minutes of awakening including egg, cheese and pizza. Lunch was between 12 and 12:30 PM consisting of salad and bread. Dinner was between 5 and 6 PM consisting of chicken, beef and vegetables. He was having fruit later. He was having 1-2 cups of Latvian coffee and 64 ounces of water on a daily basis. He tended to losecontrol of his eating when he was food deprived and stressed and his comfort food included cheese. Psychiatric History Traumatic Life Events and Abuse/Neglect History: This patient noted that the 6 day war in [place] in 1967 was traumatic for him. He noted I see myself as overweight. He denied being put down or teasedbecause of his physical condition. He denied any history of depression, anxiety, panic or obsessive-c ompulsive symptoms. He denied being in psychotherapy or on a psychotropic medication trial. Medical History (by patient report and without consulting with his primary care physician). This patient is followed medically by Benjamin Henao MD at [facility] who reportedly supports the patient's candidacy for bariatric surgery. Allergies/Sensitivities: Lisinopril and cats Complications, Trauma, Unusual Weight: Denied Head Trauma, Concussion, Extremely High Fevers, Seizures: Denied Thyroid Function: Reportedly normal. Hospitalizations and Surgeries: Rousseau teeth Current Medications: Current Outpatient Prescriptions: ??? aspirin 81 mg chewable tablet, Chew 81 mg daily., Disp: , Rfl: ??? atenolol (TENORMIN) 50 MG tablet, Take 50 mg by mouth daily. As directed., Disp: , Rfl: ??? atorvastatin (LIPITOR) 40 MG tablet, , Disp: , Rfl: ??? blood sugar diagnostic (GLUCOSE BLOOD) Str, Lynne Contour Test In Vitro Strip.TEST 4 - 6 TIMES DAILY., Disp: , Rfl: ??? cetirizine (ZYRTEC) 10 mg cap, Take 1 tablet by mouth daily., Disp: , Rfl: ??? cholecalciferol, vitamin D3, (VITAMIN D3) 5,000 unit Tab, Take 1 tablet (5,000 Units total) by mouth daily., Disp: 100 tablet, Rfl: 3 ??? cyanocobalamin (VITAMIN B-12) 500 MCG tablet, Take 1 tablet (500 mcg total) by mouth every otherday., Disp: 60 tablet, Rfl: 0 ??? folic acid (FOLVITE) 1 MG tablet, Take 1 mg by mouth daily. As directed., Disp: , Rfl: ??? insulin aspart (NOVOLOG FLEXPEN) 100 unit/mL injection pen, 20 Units 3 (three) times a day before meals. NovoLOG FlexPen 100 UNIT/ML Subcutaneous Solution Pen-injector. Inject three times daily with meal, currently up to 100 units daily. Adjust per physician orders. , Disp: , Rfl: ??? insulin glargine (LANTUS SOLOSTAR) 100 unit/mL (3 mL) InPn, Inject 65 Units under the skin at bedtime. Or as directed. , Disp: , Rfl: ??? losartan (COZAAR) 50 MG tablet, , Disp: , Rfl: ??? metFORMIN (GLUCOPHAGE) 1000 MG tablet, Take 1,000 mg by mouth 2 (two) times a day with meals., Disp: , Rfl: ??? NEEDLES, INSULIN DISPOSABLE (PEN NEEDLE MISC), BD Pen Needle Mini U/F 31G X 5 MM Miscellaneous.Use 4x daily as directed., Disp: , Rfl: ??? omeprazole (PRILOSEC) 20 MG capsule, Take 20 mg by mouth daily., Disp: , Rfl: ??? sildenafil (VIAGRA) 100 MG tablet, Take 1 tablet (100 mg total) by mouth as needed for erectile dysfunction., Disp: 28 tablet, Rfl: 3 Vitamins/Supplements: Vitamin D, B12 and magnesium Activities of Daily Living (ADLs): This patient has difficulty tying his shoes. Attitudes, Fears, or Concerns Regarding this Surgery: This patient noted I have reservations because of my age. He wants to improve quality of life but is somewhat concerned about anesthesia. Family History This patient has a family history that is positive for obesity, high blood pressure, high cholesterol, heart disease, diabetes mellitus, sleep apnea and cancer. Social and Developmental History: This patient was born and raised in [place]. His father at age 68 in 1977. His mother at age 86 in 2005. He had 3 brothers 2 of whom and 5 sisters 1 of whom in his fifth in the sibship. He has an okay relationship with them. During his upbringing he generally had good memories. He recalled having a close family. He stated that his mother was a hard worker. Educational History: This patient graduated from high school in [place] in 1963. He received his bachelor's degree in chemistry and biology from [employer]. He receives his medical degree from [employer] in 1976. 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 Current Living Situation, Partner, and Children: This patient has been for 45 years and is in a happy and supportive relationship. He has 2 sons (41 and 34) and a daughter (38). He lives with his and son. His support includes his and children. Scientology Orientation/Spiritual Support: Raised Jewish now spiritual. History: Denied Two Year Goals: This patient would like to keep up with his grandchildren and be more active. Psychological Testing: The Alcohol Use Disorders Identification Test (AUDIT) is a measure to determine how alcohol affects overall functioning and treatment. His score was 1 which is at a subclinical level suggesting that alcohol likely will not affect his functioning in the least. The [place] Multiphasic Personality Kshorgibd-9-Dhebhfqwcdvx Form (MMPI-2-RF) was responded to in an open and honest manner and the profile is valid and interpretable. Individuals with profiles similar to his tend to have somatic based complaints and worry about their health. Otherwise they deny depressive and anxiety symptoms. They may have strong opinions. The relationships with others seem to besecure. The [place] Behavior[facility] Medicine Diagnostic (MBMD) was responded to in an open and honest manner and the profile is valid and interpretable. Individuals with profiles similar to his tend to be cooperative with clinical staff. They likely will not abuse medications and see themselves as medically compliant. The Quality of Life Inventory (QOLI) is a measure to determine overall satisfaction with life. His overall Quality of Life T-Score was in the low range. He was most dissatisfied with health and most satisfied in his relationship with his family. The Eating Inventory is a measure to determine ability to follow through a treatment program as wellas restrict and control eating even during times of stress and emotion. His Cognitive Restraint of Eating, Disinhibition and Hunger scores are all within normal limits suggesting that he has adequate knowledge of nutrition information and would not lose control of his eating when under stress. Mental Status: This patient came to the evaluation setting dressed casually, although appropriately.He was generally cooperative and responded appropriately to this clinician's questions. His affect was generally bright and His mood was consist with his affect. There is no evidence of obsessions, compulsions, suicidal ideation or homicidal ideation. There is no evidence of hallucinations, delusions,paranoid ideation, grossly inappropriate affect or other alirio manifestation of psychotic disorder. He was oriented to person, place and time, and there is no evidence of any problems with impulse control. documented in this encounter Plan of Treatment Not on filedocumented as of this encounter Visit Diagnoses Diagnosis Morbid obesity (H) Morbid obesity documented in this encounter Care Teams Licensed Acupuncturist Relationship Specialty Start Date End Date Benjamin Henao MD PCP - General Internal Medicine 07/24/16 [address] [place] [address] documented as of this encounter
--- OUTSIDE RECORDS SUMMARY | 2022-03-05 07:55 | XMS_ITS | Encounter Summary ---
:1945 Author Organization [facility] Address [address] [place] [address] Care Team Providers Name Role Phone Benjamin Henao MD Primary Care Provider Encounter Details Date Type Department Care Team Description 11/05/2016 Office Visit - [facility] [place] Juan Morbid obesity (H) [facility] and Kolby, PhD Bariatrics Care [facility] AND [address] [place] [address] [address] [facility] [address] [place], [place] [phone] [id number] Social History Tobacco Use Types Packs/Day Years [...] obesity documented in this encounter Care Teams Tractor Trailer Operator Relationship Specialty Start Date End Date Benjamin Henao MD PCP - General Internal Medicine 07/24/[address] [place] [address] documented as of this encounter
--- OUTSIDE RECORDS SUMMARY | 2022-03-05 07:55 | XMS_ITS | Encounter Summary ---
:1945 Author Organization [facility] Address [address] [place] [address] Care Team Providers Name Role Phone Benjamin Henao MD Unavailable Benjamin Henao MD Primary Care Provider Encounter Details Date Type Department Care Team Description 09/03/2016 Records - [facility] CONVERSION Provider, Winter jacobsen Social History [...] on filedocumented in this encounter Care Teams Implementation Coordinator Relationship Specialty Start Date End Date Benjamin Henao MD PCP - General Internal Medicine 07/24/[address] [place] [address] Benjamin Henao MD Assigned PCP 10/05/[address] [place] [address] documented as of this encounter
--- OUTSIDE RECORDS SUMMARY | 2022-03-05 07:55 | XMS_ITS | Encounter Summary ---
:1945 Author Organization [facility] Address [address] [place] [address] Care Team Providers Name Role Phone Eladio Nielsen Primary Care Provider Unavailable Benjamin Henao MD Primary Care Provider Encounter Details Date Type Department Care Team Description 05/16/2016 Communication - [facility] Benjamin Henao MD [facility] [address] [address] [place], [place] [phone] (Wo rk) [address] [phone] Social History Tobacco Use Types Packs/Day Years [...] on filedocumented in this encounter Care Teams Parquetry Floor Layer Relationship Specialty Start Date End Date Eladio Nielsen PCP - General 08/14/11 07/23/16 Benjamin Henao MD PCP - General Internal Medicine 07/24/[address] [place] [address] documented as of this encounter
--- OUTSIDE RECORDS SUMMARY | 2022-03-05 07:55 | XMS_ITS | Encounter Summary ---
:1945 Author Organization [facility] Address [address] [place] [address] Care Team Providers Name Role Phone Benjamin Henao MD Primary Care Provider Reason for Visit Reason Comments Weight Problem Pt Ed Encounter Details Date Type Department Care Team Description 03/06/2017 Replaced By [facility] Lorna Krishnamurthy, Pre[facility]oper at[facility] and RN clearance Bariatrics Care [address] [place] [address] [address] [place] [phone] Social History Tobacco Use Types Packs/Day Years Used Date Smoking Tobacco: Former Cigarettes Quit : 08/27/1989 Alcohol Use Standard Drinks/Week Comments Yes 0 (1 standard drink = 0.6 oz pure alcoho l) Sex Assigned at Date Recorded Not on file documented as of this encounter Progress Notes Lorna Krishnamurthy, RN - 03/06/2017 11:59 PM CST Patient was going to attend the class last Saturday but his surgery got moved out to April and hewon't be coming until the end of March. He is still planning on seeing his primary MD for her testing and H&P visit on 04/08/2017. I already ordered the Act[place]all for the patient to start two weeks after surgery and the patient is aware and will sampler pickup to be ready. He is already taking omeprazole. Lorna Krishnamurthy, RN, CBN MAID documented in this encounter Plan of Treatment Not on filedocumented as of this encounter Visit Diagnoses Diagnosis Pre-operative clearance Preoperative examination, unspecified documented in this encounter Care Teams Bag Loader Machine Operator Relationship Specialty Start Date End Date Benjamin Henao MD PCP - General Internal Medicine 07/24/[address] [place] [address] documented as of this encounter
--- OUTSIDE RECORDS SUMMARY | 2022-03-05 07:55 | XMS_ITS | Encounter Summary ---
:1945 Author Organization [facility] Address [address] [place] [address] Care Team Providers Name Role Phone Benjamin Henao MD Primary Care Provider Encounter Details Date Type Department Care Team Description 02/28/2017 Communication - [facility] Santos Krishna, [facility] and Bariatrics Care [address] [place] [phone] Social History Tobacco Use Types Packs/Day Years [...] on filedocumented in this encounter Care Teams Building Maintenance Supervisor Relationship Specialty Start Date End Date Benjamin Henao MD PCP - General Internal Medicine 07/24/16 [address] [place] [address] documented as of this encounter
--- OUTSIDE RECORDS SUMMARY | 2022-03-05 07:55 | XMS_ITS | Encounter Summary ---
:1945 Author Organization [facility] Address [address] [place] [address] Care Team Providers Name Role Phone Benjamin Henao MD Primary Care Provider Encounter Details Date Type Department Care Team Description 02/28/2017 [facility] Lorna Krsihnamurthy, Pre-oper ative clearance; [facility] and shipping specialist (H); Bariatrics Care Type 1 diabetes mellitus wit h hyperglycemia (H); [address] Diabetes me llitus due to underlying condition with hyperglycemia (H); [address] Other disorders of arteries, arterioles and capillaries in diseases classified elsewhere (H) [place] [address] Social History Tobacco Use Types [...] He will be seeing Dr. Henao at [facility] on 03/18/2017 and is planning on doing his pre-op testing at that visit. Will place the orders today per Dr. Grant and Anesthesia. Lorna Krishnamurthy, RN TING MACHINE OPERATOR documented in this encounter Plan of [...] (H) documented in this encounter Care Teams Schedule Hanger Relationship Specialty Start Date End Date Benjamin Henao MD PCP - General Internal Medicine 07/24/[address] [place] [address] documented as of this encounter
--- OUTSIDE RECORDS SUMMARY | 2022-03-05 07:55 | XMS_ITS | Encounter Summary ---
:1945 Author Organization [facility] Address [address] [place] [address] Care Team Providers Name Role Phone Benjamin Henao MD Primary Care Provider Encounter Details Date Type Department Care Team Description 10/25/2016 [facility] Santos Krishna, Hypomagn esemia [facility] and Bariatrics Care [address] [place] [id number] [place] [address] [phone] (Work) [phone] Social History Tobacco Use Types Packs/Day Years [...] metabolism documented in this encounter Care Teams Mower Operator Relationship Specialty Start Date End Date Benjamin Henao MD PCP - General Internal Medicine 07/24/16 [address] [place] [address] documented as of this encounter
--- OUTSIDE RECORDS SUMMARY | 2022-03-05 07:55 | XMS_ITS | Encounter Summary ---
:1945 Author Organization [place] Address [address] [place] [address] Care Team Providers Name Role Phone Benjamin Henao MD Primary Care Provider Reason for Visit Reason Comments Diabetes A1c follow up, foot exam Labs Only lab for upcoming surgery - n ot yet scheduled Encounter Details Date Type Department Care Team Description 10/19/2016 Office Visit - [facility] Benjamin Valentin, Type 2 diabetes mellitus (H); [facility] Jose R FORTUNE Shortness of breath; [facility] [address] [facility] Obesity, Class III, BMI 40-4 9.9 (morbid obesity) (H) [address] [facility] [place] [address] Social History Tobacco Use Types Packs/Day [...] - - Weight 142 kg (313 lb) 10/19/2016 10:17 AM CDT Height 171.5 cm (5' 7.5) 10/19/2016 10:17 AM CDT Body Mass Index 48.3 10/19/2016 10:17 AM CDT documented in this encounter Progress Notes Benjamin Henao MD - 10/19/2016 10:[address] Adames comes in today for diabetic follow-up. He is currently on Lantus, mealtime NovoLog, and metformin. He is also going through the bariatric program in order to arrange for gastric bypass surgery. He is due for multiple labs today for this. He feels well and has no acute complaints. A complete review of systems was otherwise negative. Objective: Vital signs are as per the EMR. In general the patient is alert pleasant and in no acute distress. He appears healthy. Assessment and plan: Type 2 diabetes. We will check a hemoglobin A1c. He will also get his bariatricintake labs today. I will call him with results and further recommendations. documented in this encounter Plan of Treatment Not on filedocumented as of this encounter Procedures Procedure Name Priority Date/Time Associated Diagnosis Comme nts HEMOGLOBIN A1C Routine 10/19/2016 10:51 AM Result s for this CDT procedure are i n the results section . LIPID PROFILE Routine 10/19/2016 10:51 AM Results for this CDT procedure are i n the results section . documented in this encounter Results (ABNORMAL) Hemoglobin A1c (10/19/2016 10:51 AM CDT) Analysis Performed At Patho logist Time Signature Hemoglobin A1C 8.3 (H) 3.5 - 6.0 10/19/2016 [facility] % 11:14 AM CDT [facility] Specimen Anatomical Collection Method / Collection Time Recei nona Time (Source) Location / Volume Laterality Blood specimen VENOUS STRUCTURE / Venipuncture / 10/19/2016 10:51 0 10/19/2016 (specimen) Unknown Unknown AM CDT 10:51 AM CDT Santos Krishna MD LAB - BLOOD ORDERABLES Performing Organization Address City/State/ZIP Code Phon e Number [id number] [place] [address] [address] [facility] [address] [place], [place] [address] CLINIC LABORATORY (ABNORMAL) Lipid Profile (10/19/2016 10:51 AM CDT) [facility] Method Time Signature Triglycerides 110 <=149 10/19/2016 HEALTH mg/dL 3:41 PM CDT [facility] Cholesterol 141 <=199 10/19/2016 HEALTH mg/dL 3:41 PM CDT [facility] LDL Cholesterol 81 <=129 10/19/2016 HEALTH Calculated mg/dL 3:41 PM CDT [facility] Direct Measure HDL 38 (L) >=40 10/19/2016 HEALTH mg/dL 3:41 PM CDT [facility] Patient Fasting > Yes 10/19/2016 HEALTH 8hrs? 3:41 PM CDT [facility] Specimen Anatomical Collection Method / Collection Time Recei nona Time (Source) Location / Volume Laterality Blood specimen Venipuncture / 10/19/2016 10:51 017 2:55 (specimen) Unknown AM CDT PM CDT Santos Krishna MD LAB - BLOOD ORDERABLES Performing Organization Address City/State/ZIP Code Phon e Number [place] [address] [phone] [address] [facility] documented in this encounter Visit Diagnoses Diagnosis Type 2 diabetes mellitus (H) Type II or unspecified type diabetes mando litus without mention of complication, not stated as uncontrolled Shortness of breath Obesity, Class III, BMI 40-49.9 (morbid obesity) (H) Morbid obesity documented in this encounter Care Teams International Flight Attendant Relationship Specialty Start Date End Date Benjamin Henao MD PCP - General Internal Medicine 07/24/16 [address] [place] [address] documented as of this encounter
--- OUTSIDE RECORDS SUMMARY | 2022-03-05 07:55 | XMS_ITS | Encounter Summary ---
:1945 Author Organization [place] Address [address] [place] [address] Care Team Providers Name Role Phone Benjamin Henao MD Primary Care Provider Reason for Visit Reason Comments Weight Problem Initial surgical-/07/26/16/Dr. Grant?/Bypass? Encounter Details Date Type Department Care Team Description 09/28/2016 Office Visit - [facility] Santos Krishna, Obesit y, Class III, BMI 40-49.9 (morbid obesity) (H); [facility] and Type II diabetes mellitus (H); Bariatrics Care [facility]5 [place] BERNADETTE on CPAP; [place] HERNESTO 200 Essential hypertension; [address] [facility] [address] [place] [address] [phone] (Work) [phone] Social History Tobacco Use Types Packs/Day Years [...] with surgical weight loss. 3. Intakes with business process analyst and Bariatric psychology. 4. Intake labs can [...] use CPAP and has support of his head start coordinator for weight loss as well (care everywhere). No hx of chronic lung disease, just followed by pulmonology for his severe BERNADETTE (AHI 24.6 in 2010PSG). Will bring his machine to his surgery. [...] using insulin will be referred to a [facility] geotechnical laboratory technician for perioperative insulin management. GASTROINTESTINAL: Evaluation of [...] no Retinopathy: no IFG or pre-DM: na NH: no CVA:no CHF: no Previous cardiac testing includes: stress testCHARLESFAITH MELGAR Excellian ID: [id number] Age: 69 : 1945 Exam Date: 12/28/2014 11:25 Gender: M RN/Ex. Numerical Control Programmer: EDITH Height: 69 in BSA: 2.47 m?? Monitoring Provider: KAILYN GARNETT Weight: 305 lbs BMI: 45 kg/m?? Ordering Provider: PERLA BLEVINS Location: Outpatient Procedure: STRESS TEST EXERCISE Indications: Coronary artery disease involving red cliff coronary artery without angina pectoris, unspecified whether red cliff or transplanted heart Technical Quality: FINAL CONCLUSIONS 1)?Mild to moderate impairment of exercise tolerance 2)?No electrocardiographic evidence for exercise induced coronary ischemia Date: 2012 Indication: Chest pain with equivocal stress test, coronary artery disease, dyspnea, abnormal EKG.? CONCLUSIONS: 1.?Bsoz-ue-bwjkdrff coronary artery disease as detailed below. 2.?The [...] implications with you; for assistance, please call [phone] Cancers: no Kidney Disease: no DVT: no [...] ??? blood sugar diagnostic (GLUCOSE BLOOD) Strp Bundle Buy Contour Test In Vitro Strip.TEST 4 - [...] Witnessed Apneas yes, uses cpap PND no Genesee Score: na STOP BANG: na General Fatigue: [...] Rhythm regular Rate Regular Murmur: none Pulmonary Genesee Score: na Lungs clear to ascultation Abdomen [...] LABS on File: No results found for: [address] No results found for: 7597 WBC Date [...] found for: PTH No results found for: [id number] Ferritin Date Value Ref Range Status 01/10/2016 [...] found for: TESTOSTERONE No results found for: [id number] Counseled on what to expect regarding the [...] vitamin supplementation and lifelong follow-up. Faith Sanchez Montsejean was reminded that, postoperatively, to avoid marginal [...] one alcoholic beverage. Time spent 60 minutes frky-vi-[id number] with over 50% of the time spent [...] reflux documented in this encounter Care Teams Nicker Relationship Specialty Start Date End Date Benjamin Henao MD PCP - General Internal Medicine 07/24/[address] [place] [address] documented as of this encounter
--- OUTSIDE RECORDS SUMMARY | 2022-03-05 07:55 | XMS_ITS | Encounter Summary ---
:1945 Author Organization [place] Address [address] [place] [address] Care Team Providers Name Role Phone Benjamin Waller MD Primary Care Provider Reason for Visit Reason Comments Pre-Op Exam 05/01/17 - bariatric surgery - [facility] - Dr. Grant Other Other; pt need ekg and Chest xray Encounter Details Date Type Department Care Team Description 04/08/2017 Office Visit - [facility] [place] [facility] Benjamin Valentin, Pre- op exam; [facility] Jose R FORTUNE Pre-operative clearance; [facility] [address] [facility] Diabetes mellitus due to und erlying condition with hyperglycemia (H); [address] Other disorders of arteries, arterioles and capillaries in diseases classified elsewhere (H) [place] [phone] Social History Tobacco Use Types Packs/Day Years [...] 145.2 kg (320 lb) 04/08/2017 12:45 PM AUTOMATION QA LEAD Height - - Body Mass Index 48.66 [...] gastric bypass Surgery Date: 05/01/17 Surgery Location: [facility] Surgeon: Dr. Grant ASSESSED PROBLEMS: Problem List Items Addressed This Visit None CHIEF COMPLAINT: Chief Complaint Patient presents with ??? Pre-op Exam 05/01/17 - bariatric surgery - [facility] - Dr. Grant HISTORY OF PRESENT ILLNESS: Faith Adames is a 71 y.o. year-old male here for an internal medicine pre-operative consultation. The exam is requested by Dr. Grant in preparation for gastric bypass surgery to be performed at [facility] on 05/01/17. Today???s examination on 04/08/17 is [...] Administered ??? DT (pediatric) 04/22/2000 ??? Influenza [id number], 02/20/2009 ??? Influenza high dose, seasonal 01/21/2015, [...] Pneumonia 2014. ??? Sleep apnea use cpap Social History [...] Frequent Aspirin use: yes Family history of CT, Stroke and sudden , clotting disorder Social [...] and normal reflexes. Psychiatric:Normal mood and affect. MATION QA LEAD documented in this encounter Miscellaneous Notes Addendum Note - Chrissy Cohn - 04/08/2017 2:24 PM CST Addendum Note by Chrissy Waller CMA at 04/08/2017 2:24 PM Author: Chrissy Waller CMA Service: -- Author Type: Fountain Clerk Filed: 04/08/2017 2:24 PM Encounter Date: 04/08/2017 Status: Signed Ticket Puller: Chrissy Waller CMA (Fountain Clerk) Addended by: CHRISSY WALLER on: 04/08/2017 02:24 PM Modules accepted: Orders MATION QA LEAD documented in this encounter Plan of Treatment Not on filedocumented as of this encounter Procedures Procedure Name Priority Date/Time Associated Diagnosis Comme nts EKG 12-LEAD, TRACING Routine 04/08/2017 Results for this ONLY procedure are i n the results section . documented in this encounter Results EKG 12-lead, tracing only (04/08/2017) Patholo gist Method Time Signature Systolic Blood mmHg 04/08/2017 HE RADIANT Pressure 2:20 PM CONVERSION AUTOMATION QA LEAD Diastolic Blood mmHg 04/08/2017 HE RADIANT Pressure 2:20 PM CONVERSION AUTOMATION QA LEAD Ventricular Rate 61 BPM 04/08/2017 HE RADIANT 2:20 PM CONVERSION AUTOMATION QA LEAD Atrial Rate 61 BPM 04/08/2017 HE RADIANT 2:20 PM CONVERSION AUTOMATION QA LEAD OK Interval 202 ms 04/08/2017 HE RADIANT 2:20 PM CONVERSION AUTOMATION QA LEAD QRS Duration 84 ms 04/08/2017 HE RADIANT 2:20 PM CONVERSION AUTOMATION QA LEAD QT 380 ms 04/08/2017 HE RADIANT 2:20 PM CONVERSION AUTOMATION QA LEAD QTc 382 ms 04/08/2017 HE RADIANT 2:20 PM CONVERSION AUTOMATION QA LEAD P [place] 73 degrees 04/08/2017 HE RADIANT 2:20 PM CONVERSION AUTOMATION QA LEAD R AXIS -46 degrees 04/08/2017 HE RADIANT 2:20 PM CONVERSION AUTOMATION QA LEAD T [place] -18 degrees 04/08/2017 HE RADIANT 2:20 PM CONVERSION AUTOMATION QA LEAD Interpretation Normal sinus rhythm 04/08/2017 HE R ADIANT ECG Left axis deviation 2:20 PM CONVERSION Minimal voltage criteria for LVH, may be normal variant AUTOMATION QA LEAD Inferior infarct , age undetermined Abnormal ECG No previous ECGs available Confirmed by SARA ??CLIVE FORTUNE LOC:JN ([id number]) on 03/22 2:20:08 PM Specimen (Source) Anatomical Collection Method Collection Time Re ceived Time Location / / Volume Laterality 04/08/2017 04/08/2017 2:20 PM AUTOMATION QA LEAD Benjamin Waller MD ECG ORDERABLES Performing Organization [...] (H) documented in this encounter Care Teams Building Supplies Salesperson Retail Relationship Specialty Start Date End Date Benjamin Waller MD PCP - General Internal Medicine 07/24/[address] [place] [address] documented as of this encounter
--- OUTSIDE RECORDS SUMMARY | 2022-03-05 07:55 | XMS_ITS | Encounter Summary ---
:1945 Author Organization [place] Address [address] [place] [address] Care Team Providers Name Role Phone Benjamin Henao MD Primary Care Provider Encounter Details Date Type Department Care Team Description 10/02/2016 [facility] Hortensia Mcnamara Surgery Clinic and Bariatrics Care 17 [facility] 140 [place] [address] Social History Tobacco Use Types [...] in this encounter Care Teams Director Of Casework Department Relationship Specialty Start Date End Date Benjamin Henao MD PCP - General Internal Medicine 07/24/[address] [place], [place] [phone] documented as of this encounter
--- OUTSIDE RECORDS SUMMARY | 2022-03-05 07:55 | XMS_ITS | Encounter Summary ---
:1945 Author Organization [place] Address [address] [place] [address] Care Team Providers Name Role Phone Benjamin Henao MD Primary Care Provider Encounter Details Date Type Department Care Team Description 07/24/2016 Communication - [facility] HE E-VISITS Provider, Obed gross Social History [...] on filedocumented in this encounter Care Teams Lead Cargo Mover Relationship Specialty Start Date End Date Benjamin Henao MD PCP - General Internal Medicine 07/24/16 [address] [place] [address] documented as of this encounter
--- OUTSIDE RECORDS SUMMARY | 2022-03-05 07:55 | XMS_ITS | Encounter Summary ---
:1945 Author Organization [place] Address [address] [place] [address] Care Team Providers Name Role Phone Benjamin Henao MD Primary Care Provider Encounter Details Date Type Department Care Team Description 02/05/2017 [facility] H[facility]ia Mc[facility] Surgery Clinic and Bariatrics Care 17 [facility] 140 [place] [address] Social History Tobacco Use Types Packs/Day Years Used Date Smoking Tobacco: Former Cigarettes Quit : 08/27/1989 Alcohol Use Standard Drinks/Week Comments Yes 0 (1 standard drink = 0.6 oz pure alcoho l) Sex Assigned at Date Recorded Not on file documented as of this encounter Progress Notes Hortensia Mcnamara - 02/05/2017 1:25 PM CDT I have submitted a prior authorization request on behalf of this patient to [employer] to be approved for a LRNY with Dr. Naresh Grant. Copy to [facility] to scan to patients chart. Patient has Medicare A & Band ABN's were signed at his surgical consult. I have submitted this request as precaution that patient may or may not need one due to his Medicare. documented in this encounter Plan of Treatment Not on filedocumented as of this encounter Visit Diagnoses Not on filedocumented in this encounter Care Teams Anodic Operator Relationship Specialty Start Date End Date Benjamin Henao MD PCP - General Internal Medicine 07/24/16 [address] [place] [address] documented as of this encounter
--- OUTSIDE RECORDS SUMMARY | 2022-03-05 07:55 | XMS_ITS | Encounter Summary ---
:1945 Author Organization [place] Address [address] [place] [address] Care Team Providers Name Role Phone Eladio Nielsen Primary Care Provider Unavailable Benjamin Henao MD Primary Care Provider Encounter Details Date Type Department Care Team Description 01/12/2016 Communication - [facility] Benjamin Henao MD [facility] [address] [address] [place], [place] [phone] (Wo rk) [address] [phone] Social History Tobacco Use Types Packs/Day Years [...] on filedocumented in this encounter Care Teams Porcelain Technician Relationship Specialty Start Date End Date Eladio Nielsen PCP - General 08/14/11 07/23/16 Benjamin Henao MD PCP - General Internal Medicine 07/24/[address] [place] [address] documented as of this encounter
--- OUTSIDE RECORDS SUMMARY | 2022-03-05 07:55 | XMS_ITS | Encounter Summary ---
:1945 Author Organization [place] Address [address] [place] [address] Care Team Providers Name Role Phone Benjamin Henao MD Primary Care Provider Reason for Visit Reason Comments Pre-Op Exam discussed diabetic needs ling or/after bariatric surgery Encounter Details Date Type Department Care Team Description 04/08/2017 Communication - [facility] Erendira, [facility] MD Santos (discussed diabetic Bariatrics Care 2945 needs prio... 17 [facility] [address] [place] [phone] Social History Tobacco Use Types Packs/Day Years [...] on filedocumented in this encounter Care Teams Chiropractic Physician Relationship Specialty Start Date End Date Benjamin Henao MD PCP - General Internal Medicine 07/24/16 [address] [place] [address] documented as of this encounter
--- OUTSIDE RECORDS SUMMARY | 2022-03-05 07:55 | XMS_ITS | Encounter Summary ---
:1945 Author Organization [place] Address [address] [place] [address] Care Team Providers Name Role Phone Benjamin Henao MD Primary Care Provider Encounter Details Date Type Department Care Team Description 10/24/2016 [facility] Santos Krishna, Low papito min B12 level; [facility] and Hypomagnesemia; Bariatrics Care [address] [place] [address] Low vitamin D level [place] [address] [facility] [id number] [place] [address] [phone] [address] (Work) [phone] Social History Tobacco Use Types Packs/Day Years [...] level documented in this encounter Care Teams Polisher Sand Relationship Specialty Start Date End Date Benjamin Henao MD PCP - General Internal Medicine 07/24/16 [address] [place] [address] documented as of this encounter
--- OUTSIDE RECORDS SUMMARY | 2022-03-05 07:55 | XMS_ITS | Encounter Summary ---
:1945 Author Organization [place] Address [address] [place] [address] Care Team Providers Name Role Phone Benjamin Henao MD Primary Care Provider Reason for Visit Reason Comments Nutrition Counseling Encounter Details Date Type Department Care Team Description 11/05/2016 Office Visit - [facility] Provider, Obesity, morbid, BMI 40.0- 49.9 (H); [facility] and Historical Nutrition al counseling Bariatrics Care [address] [place] [address] [address] [place] [address] Social History Tobacco Use Types [...] play with grand children. Pt comes from [place], in which there is a dietary [...] mass index is 48.45 kg/(m^2). Estimated RMR (Saluda-St Jeor equation): 2143 calories Food allergies, intolerances, and anabaptist customs: None. Diabetes: Pt reports taking insulin daily. Vitamins Educated on post-op vitamin regimen: Multi Vit + iron 2x/day, calcium citrate 500-600 mg 2x/day, 1766-8589 mcg of Sublingual B-12 daily, and 5000 [...] vegetable, starch (20g) HS Snack: cheese with azeri bread, fruit (8g) Per Diet recall estimated protein: 60-70 grams/day Typical Snacks: Pt reports liking fruit and cheese. Fats used at home: olive oil Fried Foods: 0 times per week Meals per week away from home: 0-1x/week Sit down: none Fast Food: none Take Out: none Delivery: pizza Buffet: none Cafeteria: none Specialty Coffee: none (Pt drinks slovak coffee) Ice Cream/FrozenYogurt/Bakery: none Comments: none Recommended [...] Intervention Discussion: 1. Educated pt on the [place] [facility]ariat[facility] Success handout. 2. Reviewed lean [...] without distractions of tv/email/cell phone. Handouts Provided: [facility] Success Bariatric Plate Food journal [...] progression, give review of surgery process. Review [facility] Check Understanding Quiz Possible final visit Time In: 1:30pm Time Out: 2:15pm ABN signed: Yes documented in this encounter Plan of Treatment Not on filedocumented as of this encounter Visit Diagnoses Diagnosis Obesity, morbid, BMI 40.0-49.9 (H) Nutritional counseling documented in this encounter Care Teams Component Engineer Relationship Specialty Start Date End Date Benjamin Henao MD PCP - General Internal Medicine 07/24/[address] [place] [address] documented as of this encounter
--- OUTSIDE RECORDS SUMMARY | 2022-03-05 07:56 | XMS_ITS | Encounter Summary ---
:1945 Author Organization [place] Address [address] [place] [address] Care Team Providers Name Role Phone Eladio Nielsen Primary Care Provider Unavailable Reason for Visit Auth/Cert - Closed Specialty Diagnoses / Procedures Referred By Contact Refer red To Contact Gastroenterology Diagnoses Polyp History Rh Endoscopy Procedures COLONOSCOPY [address] [place] [address] Phone: Fax: Referral ID Status Reason Start Date Expiration Date Visits Requ ested Visits Authorized [id number] Closed 08/14/2011 02/10/2012 1 1 Encounter Details Date Type Department Care Team Description 08/29/2011 Hospital Encounter [facility] Goran Lucas MD Endoscopy [place] XXX RETIRED XXX [address] [place] [address] [place], [place] [phone] (Wo rk) [address] [phone] Social History Tobacco Use Types Packs/Day Years [...] in this encounter Nursing Notes Mary Grace Velazquez, RN - 08/29/2011 2:17 PM CDT Terminal [...] encounter Results COLONOSCOPY (08/29/2011 1:31 PM CDT) [facility] Method Time Signature COLONOSCOPY [facility] RAD IOLOGY RESULTS Patient Name: Faith [...] Intra-procedure documented in this encounter Care Teams Medical Center Representative Relationship Specialty Start Date End Date Eladio Nielsen PCP - General 08/14/11 07/23/16 documented as of this encounter
--- OUTSIDE RECORDS SUMMARY | 2022-03-05 07:56 | XMS_ITS | Encounter Summary ---
:1945 Author Organization [place] Address [address] [place] [address] Care Team Providers Name Role Phone Eladio Nielsen Primary Care Provider Unavailable Benjamin Henao MD Primary Care Provider Encounter Details Date Type Department Care Team Description 05/06/2014 Ambulatory - [facility] HE CONVERSION Eladio Nielsen Hypertro y of [facility] Provider, Historical prostate without urinary obstruc tion and other lower urinary tract symptoms (LUTS) Social History Tobacco Use Types Packs/Day Years Used Date Smoking Tobacco: Former Cigarettes Quit : 08/27/1989 Alcohol Use Standard Drinks/Week Comments Yes 0 (1 standard drink = 0.6 oz pure alcoho l) Sex Assigned at Date Recorded Not on file documented as of this encounter Plan of Treatment Not on filedocumented as of this encounter Visit Diagnoses Diagnosis Hypertrophy of prostate without urinary obstruction and other lower urinary tract symptoms (LUTS) documented in this encounter Care Teams Charge Entry Specialist Relationship Specialty Start Date End Date Eladio Nielsen PCP - General 08/14/11 07/23/16 Benjamin Henao MD PCP - General Internal Medicine 07/24/16 [address] [place] [address] documented as of this encounter
--- OUTSIDE RECORDS SUMMARY | 2022-03-05 07:56 | XMS_ITS | Encounter Summary ---
:1945 Author Organization [place] Address [address] [place] [address] Care Team Providers Name Role Phone Eladio Nielsen Primary Care Provider Unavailable Benjamin Henao MD Unavailable Benjamin Henao MD Primary Care Provider Encounter Details Date Type Department Care Team Description 12/14/2014 Records - [facility] CONVERSION Scan, Non-Provider [...] on filedocumented in this encounter Care Teams Personal Carer Relationship Specialty Start Date End Date Eladio Nielsen PCP - General 08/14/11 07/23/16 Benjamin Henao MD PCP - General Internal Medicine 07/24/[address] [place] [address] Benjamin Henao MD Assigned PCP 10/05/[address] [place] [address] documented as of this encounter
--- OUTSIDE RECORDS SUMMARY | 2022-03-05 07:56 | XMS_ITS | Encounter Summary ---
:1945 Author Organization [place] Address [address] [place] [address] Care Team Providers Name Role Phone Unavailable Primary Care Provider Unavailable Encounter Details Date Type Department Care Team Description 08/13/[address] [facility] Faith Adames E, N one Endoscopy [place] FORTUNE [address] [facility] XXX NO INFO FOUND XXX TO Edward [phone] XXX [phone] TO LOCKETT [address] Social History Tobacco Use Types Packs/Day Years Used Date Smoking Tobacco: Never Assessed Sex Assigned at Date Recorded [...] Component Value Ref Test Analysis Performed At [facility] Method Time Signature Upper GI Endoscopy RADIOLOGY [...] ? saturations were monitored continuously. The ? [id number] was introduced through the mouth, and ? [...] Teague Duncan Lucas MD Signed Date: 08/13/2007 8:53 [...] RADIOLOGY RESULTS COLONOSCOPY (08/13/2007 7:00 AM CDT) [facility] gist Method Time Signature COLONOSCOPY Endoscopy RADIOLOGY [...] saturations were monitored continuously. The [id number] ? #[id number] was introduced through the anus and advanced [...]
--- OUTSIDE RECORDS SUMMARY | 2022-03-05 07:56 | XMS_ITS | Encounter Summary ---
:1945 Author Organization [place] Address [address] [place] [address] Care Team Providers Name Role Phone Eladio Nielsen Primary Care Provider Unavailable Benjamin Henao MD Primary Care Provider Encounter Details Date Type Department Care Team Description 03/14/2015 Communication - [facility] [address] [address] [place], [place] [phone] (Wo rk) [address] [phone] Social History Tobacco Use Types Packs/Day Years [...] on filedocumented in this encounter Care Teams Risk Engineer Relationship Specialty Start Date End Date Eladio Nielsen PCP - General 08/14/11 07/23/16 Benjamin Henao MD PCP - General Internal Medicine 07/24/[address] [place] [address] documented as of this encounter
--- OUTSIDE RECORDS SUMMARY | 2022-03-05 07:56 | XMS_ITS | Encounter Summary ---
:1945 Author Organization [place] Address [address] [place] [address] Care Team Providers Name Role Phone Eladio Nielsen Primary Care Provider Unavailable Benjamin Henao MD Primary Care Provider Encounter Details Date Type Department Care Team Description 05/20/2014 [facility] Eladio Nielsen [facility] Provider, [facility] [address] [place] [address] Social History Tobacco Use Types [...] on filedocumented in this encounter Care Teams General Forecaster Relationship Specialty Start Date End Date Eladio Nielsen PCP - General 08/14/11 07/23/16 Benjamin Henao MD PCP - General Internal Medicine 07/24/162 [place], [place] [phone] documented as of this encounter
--- OUTSIDE RECORDS SUMMARY | 2022-03-05 07:56 | XMS_ITS | Encounter Summary ---
:1945 Author Organization [place] Address [address] [place] [address] Care Team Providers Name Role Phone Eladio Nielsen Primary Care Provider Unavailable Benjamin Henao MD Primary Care Provider Encounter Details Date Type Department Care Team Description 01/07/2014 Ambulatory - [facility] Eladio Nielsen Type II or [facility] Provider, Historical unspecified type [facility] diabetes mellitus 1824 [facility] without menti on of Drive complication, [place] [address] uncontrolled [phone] Social History Tobacco Use Types Packs/Day Years [...] uncontrolled documented in this encounter Care Teams Rubber Block Layer Relationship Specialty Start Date End Date Eladio Nielsen PCP - General 08/14/11 07/23/16 Benjamin Henao MD PCP - General Internal Medicine 07/24/16 1825 [place], [place] [phone] documented as of this encounter
--- OUTSIDE RECORDS SUMMARY | 2022-03-05 07:56 | XMS_ITS | Encounter Summary ---
:1945 Author Organization [place] Address [address] [place] [address] Care Team Providers Name Role Phone Eladio Nielsen Primary Care Provider Unavailable Benjamin Henao MD Unavailable Benjamin Henao MD Primary Care Provider Encounter Details Date Type Department Care Team Description 02/18/2015 Records - [place] [facility] CONVERSION Provider, Winter jacobsen Social [...] on filedocumented in this encounter Care Teams Manufacturing Operations Manager Relationship Specialty Start Date End Date Eladio Nielsen PCP - General 08/14/11 07/23/16 Benjamin Henao MD PCP - General Internal Medicine 07/24/[address] [place] [address] Benjamin Henao MD Assigned PCP 10/05/[address] [place] [address] documented as of this encounter
--- OUTSIDE RECORDS SUMMARY | 2022-03-05 07:56 | XMS_ITS | Encounter Summary ---
:1945 Author Organization [place] Address [address] [place] [address] Care Team Providers Name Role Phone Eladio Nielsen Primary Care Provider Unavailable Benjamin Henao MD Unavailable Benjamin Henao MD Primary Care Provider Encounter Details Date Type Department Care Team Description 08/27/2013 Records - [facility] Brian Nielsen [address] [phone] Social History Tobacco Use Types Packs/Day Years [...] (08/27/2013 10:17 AM CDT) Analysis Performed At [facility] Time Signature Hemoglobin A1C 7.3 (H) 3.5 - 6.0 08/27/2013 [facility] % 10:17 AM CDT [facility] Specimen Anatomical Collection Method Collection Time Receive d Time (Source) Location / / Volume Laterality 08/27/2013 10:17 08/27/2013 AM CDT 10:17 AM CDT Eladio Nielsen LAB - BLOOD ORDERABLES Performing Organization Address City/[facility]/ZIP Code Phon e Number [facility] [place] [address] [phone] CLINIC LABORATORY LDL cholesterol direct (08/27/2013 10:17 AM CDT) athologist Signature LDL Cholesterol 77 <130 mg/dL 08/27/2013 [facility] Direct 10:17 AM CDT [facility] Specimen Anatomical Collection Method Collection Time Receive d Time (Source) Location / / Volume Laterality 08/27/2013 10:17 08/27/2013 AM CDT 10:17 AM CDT Eladio Nielsen LAB - BLOOD ORDERABLES Performing Organization Address City/[facility] Phon e [place] [address] [address] [facility] documented in this encounter Visit Diagnoses Not on filedocumented in this encounter Care Teams Book Editor Relationship Specialty Start Date End Date Eladio Nielsen PCP - General 08/14/11 07/23/16 Benjamin Henao MD PCP - General Internal Medicine 07/24/[address] [place] [address] Benjamin Henao MD Assigned PCP 10/05/[address] [place] [address] documented as of this encounter
--- OUTSIDE RECORDS SUMMARY | 2022-03-05 07:56 | XMS_ITS | Encounter Summary ---
:1945 Author Organization [place] Address [address] [place] [address] Care Team Providers Name Role Phone Eladio Nielsen Primary Care Provider Unavailable Benjamin Henao MD Unavailable Benjamin Henao MD Primary Care Provider Encounter Details Date Type Department Care Team Description 04/28/2015 Records - [facility] Provider, Winter jacobsen Social History [...] Name Priority Date/Time Associated Diagnosis Comme nts CT IMAGING - HIM SCAN 04/28/2015 documented in this encounter Results CT IMAGING - HIM SCAN (04/28/2015) Anatomical Region Laterality Modality Computed Tomography Specimen (Source) Anatomical Location Collection Method / Collectio n Time Received Time / Laterality Volume Narrative This result has an attachment that is no t available. Historical Provider IMG CT ORDERABLES documented in this encounter Visit Diagnoses Not on filedocumented in this encounter Care Teams Light Rail Transit Operator Relationship Specialty Start Date End Date Eladio Nielsen PCP - General 08/14/11 07/23/16 Benjamin Henao MD PCP - General Internal Medicine 07/24/161824 [place] [address] Benjamin Henao MD Assigned PCP 10/05/201824 [place] [address] documented as of this encounter
--- OUTSIDE RECORDS SUMMARY | 2022-03-05 07:56 | XMS_ITS | Encounter Summary ---
:1945 Author Organization [place] Address [address] [place] [address] Care Team Providers Name Role Phone Eladio Nielsen Primary Care Provider Unavailable Benjamin Henao MD Unavailable Bnejamin Henao MD Primary Care Provider Encounter Details Date Type Department Care Team Description 03/24/2015 Records - [facility] CONVERSION Provider, Winter jacobsen Social History [...] on filedocumented in this encounter Care Teams Cloud Automation Tester Relationship Specialty Start Date End Date Eladio Nielsen PCP - General 08/14/11 07/23/16 Benjamin Henao MD PCP - General Internal Medicine 07/24/[address] [place] [address] Benjamin Henao MD Assigned PCP 10/05/[address] [place] [address] documented as of this encounter
--- OUTSIDE RECORDS SUMMARY | 2022-03-05 07:56 | XMS_ITS | Encounter Summary ---
:1945 Author Organization [place] Address [address] [place] [address] Care Team Providers Name Role Phone Eladio Nielsen Primary Care Provider Unavailable Benjamin Henao MD Primary Care Provider Reason for Visit Reason Comments Nutrition Counseling Encounter Details Date Type Department Care Team Description 12/22/2014 [facility] Ai Koenig Type I I or [facility] Jose R Sanchez RN unspecified type [facility] diabetes mellitus [address] [facility] without menti on of Drive complication, not [place] [phone] [facility] [phone] Social History Tobacco Use Types Packs/Day Years [...] documented in this encounter Progress Notes Ai Koeing - 12/22/2014 2:16 PM CDT Assessment: Time [...] review Appointments to be scheduled (Appointment center [phone]): CDE (certified community health educator) in two weeks Medication suggestions discussed [...] have 2 eggs with plain toast or Bolivian bread with a yogurt he mixes with olive oil. He drinks water with his meal. Lunch, patient will have a salad of cucumbers and tomatoes with Bolivian bread. Sometimes he will have meat sandwich or leftovers from the night before. Dinner, patient eats a traditional [place]ian meal most of the time. His will [...] uncontrolled documented in this encounter Care Teams Ornamental Bronze Worker Relationship Specialty Start Date End Date Eladio Nielsen PCP - General 08/14/11 07/23/16 Benjamin Henao MD PCP - General Internal Medicine 07/24/16 [address] [place] [address] documented as of this encounter
--- OUTSIDE RECORDS SUMMARY | 2022-03-05 07:56 | XMS_ITS | Encounter Summary ---
:1945 Author Organization [place] Address [address] [place] [address] Care Team Providers Name Role Phone Unavailable Primary Care Provider Unavailable Encounter Details Date Type Department Care Team Description 06/28/2004 GI Procedure [facility] Duncan Lucas MD None Endoscopy [place] XX RETIRED XXX [address] [place] [address] [place] [address] [phone] Social History Tobacco Use Types Packs/Day Years Used Date Smoking Tobacco: Never Assessed Sex Assigned at Date Recorded Not on file documented as of this encounter Plan of Treatment Not on filedocumented as of this encounter Procedures Procedure Name Priority Date/Time Associated Diagnosis Comme nts UPPER GI ENDOSCOPY Routine 06/28/2004 8:10 AM Res ults for this SPECIALIST MANAGERS procedure are i n the results section. COLONOSCOPY Routine 06/28/2004 7:10 AM Results f or this SPECIALIST MANAGERS procedure are i n the results section. documented in this encounter Results UPPER GI ENDOSCOPY (06/28/2004 8:10 AM SPECIALIST MANAGERS) Component Value Ref Test Analysis Performed At [facility] Method Time Signature Upper GI [facility] RADIOLOGY Endoscopy RESULTS Patient Name: Faith Adames [...] monitored ? con tinuously. The Gastrocope [id number] #[id number] was introduced [facility] and advanced to the third part of ? edinson an. The upper GI endoscopy was accomplished without [...] / / Volume Laterality 06/28/2004 8:10 AM SPECIALIST MANAGERS Duncan Lucas MD PROCEDURES Performing Organization Address City/State/ZIP Code Phon e Number RADIOLOGY RESULTS COLONOSCOPY (06/28/2004 7:10 AM SPECIALIST MANAGERS) [facility] gist Method Time Signature COLONOSCOPY [facility] RADIOLOGY RESULTS Patient Name: Faith Adames ?Gender: [...] monitored ? con tinuously. The Colonoscope P-57 #[id number] was introduced ? thr ough the anus [...] / / Volume Laterality 06/28/2004 7:10 AM SPECIALIST MANAGERS Duncan Lucas MD PROCEDURES Performing Organization Address City/State/ZIP Code Phon e Number RADIOLOGY RESULTS documented in this encounter Visit Diagnoses Not on filedocumented in this encounter
--- OUTSIDE RECORDS SUMMARY | 2022-03-05 07:56 | XMS_ITS | Encounter Summary ---
:1945 Author Organization [facility] Address [address] [place] [address] Care Team Providers Name Role Phone Eladio Nielsen Primary Care Provider Unavailable Benjamin Henao MD Primary Care Provider Reason for Visit Reason Comments Follow Up On labs Encounter Details Date Type Department Care Team Description 06/13/2015 [facility] [place], Type II or unspecified type diabetes mellitus without mention of complication, not stated as uncontrolled; [facility] Jose R FORTUNE Microalbuminuria; [facility] Unspecified essential hypert ension [address] [facility] [address] [place] [address] Social History Tobacco Use Types Packs/Day [...] - Inhaled Oxygen Concentration - - Weight 140.6 kg (310 lb) 06/13/2015 9:40 AM ELECTRIC TRACK SWITCH MAINTAINER Height - - Body Mass Index 46.45 03/11/2015 9:10 AM ELECTRIC TRACK SWITCH MAINTAINER documented in this encounter Progress Notes Benjamin Henao - 06/13/2015 9:53 AM CST ASSESSMENT: #1. Type 2 diabetes, controlled. Hemoglobin A1c is 7.9 today. #2. Hypertension, controlled. #3. Microalbuminuria PLAN: Continue current medication regimen. He will follow-up in 4-5 months. Problem List Items Addressed This Visit Type 2 Diabetes Mellitus - Primary Relevant Orders Glycosylated Hemoglobin A1c (Completed) Hypertension Microalbuminuria There are no discontinued medications. Administrations This Visit pneumococcal vaccine injection 0.5 mL (PNEUMOVAX) Admin Date Action Dose Route Administered By 06/13/2015 Given 0.5 mL Intramuscular Shana Bartholomew CMA No Follow-up on file. There are no Patient Instructions on file for this visit. CHIEF COMPLAINT: Chief Complaint Patient presents with ??? Follow-up On labs HISTORY OF PRESENT ILLNESS: Faith Adames is a 69 y.o. male presenting to the clinic today for a diabetic follow up. When last checked in February 2015, his A1c was 7.7., found to be 7.9 today His micro albumin remained elevated 12.63. He does not mention any recent hypoglycemic reactions. His las diabetic eye exam was in March 2015; this was stable, no retinopathy. Hypertension: He has increased losartan to 50 mg. After doing so, he has noted improved pressure control. His pressure is 134/70 today. Health Maintenance: He has had the Prevnar; he is due for the Pneumovax. REVIEW OF SYSTEMS: He underwent endoscopy in April of this year, no Ng's esophagus. All other systems are negative. PFSH: He quit smoking 26 years ago. Allergies Allergen Reactions ??? Lisinopril ??? Sibutramine TOBACCO USE: History Smoking Status ??? Former Smoker Smokeless Tobacco ??? Former User VITALS: Vitals: 06/13/15 0940 BP: (P) 134/70 Pulse: (P) 76 Weight: (!) (P) 310 lb (140.6 kg) Wt Readings from Last 3 Encounters: 06/13/15 (!) (P) 310 lb (140.6 kg) 03/11/15 (!) 306 lb 11.2 oz (139.1 kg) 09/16/15 (!) 306 lb (138.8 kg) PHYSICAL EXAM: Constitutional: Reveals an alert, pleasant middle aged male. Vitals: Per nursing notes. Body mass index is 46.45 kg/(m^2) (pended). ADDITIONAL HISTORY SUMMARIZED (FROM OLD RECORDS OR HISTORY FROM SOMEONE OTHER THAN THE PATIENT OR ANOTHER HEALTHCARE PROVIDER), COLONOSCOPY (2 TOTAL):April endoscopy reviewed, no Ng's. March eye exam, stable. DECISION TO OBTAIN EXTRA INFORMATION (OLD RECORDS REQUESTED OR HISTORY FROM ANOTHER PERSON OR ACCESSING CARE EVERYWHERE) (1 TOTAL):none RADIOLOGY TESTS SUMMARIZED OR ORDERED (XRAY/CT/MRI/DXA/MAMMO) (1 TOTAL): none LABS REVIEWED OR ORDERED (1 TOTAL): A1c ordered and reviewed today. MEDICINE TESTS SUMMARIZED OR ORDERED (EKG/ECHO/EGD) (1 TOTAL): none INDEPENDENT REVIEW OF EKG OR X-RAY (2 EACH): none The visit lasted a total of 11 minutes face to face with the patient. Over 50% of the time was spentcounseling and educating the patient about his diabetes and hypertension. I, Anthony [place], am scribing for and in the presence of, Dr. Benjamin Henao. I, Dr. Benjamin Henao, personally performed the services described in this documentation, as scribed by Anthony [place] in my presence, and it is both [...] mg by mouth daily. As directed. ??? losartan (COZAAR) 50 MG tablet [...] for this visit. Total data points: 3 TRIC TRACK SWITCH MAINTAINER documented in this encounter Plan of Treatment Not on filedocumented as of this encounter Procedures Procedure Name Priority Date/Time Associated Diagnosis Comme nts HEMOGLOBIN A1C Routine 06/13/2015 10:07 AM Result s for this ELECTRIC TRACK SWITCH MAINTAINER procedure are i n the results section . documented in this encounter Results (ABNORMAL) Hemoglobin A1c (06/13/2015 10:07 AM ELECTRIC TRACK SWITCH MAINTAINER) Analysis Performed At [facility] Time Signature Hemoglobin A1C 7.9 (H) 3.5 - 6.0 06/13/2015 HEALTH % 10:19 AM ELECTRIC TRACK SWITCH MAINTAINER [facility] Specimen Anatomical Collection Method / Collection Time Recei nona Time (Source) Location / Volume Laterality Blood specimen Venipuncture / 06/13/2015 10:07 016 (specimen) Unknown AM ELECTRIC TRACK SWITCH MAINTAINER 10:07 AM ELECTRIC TRACK SWITCH MAINTAINER Benjamin Henao MD LAB - BLOOD ORDERABLES Performing Organization Address City/State/ZIP Code Phon e Number [facility] [place] [address] 1875 [facility] [address] [place] [phone] CLINIC LABORATORY documented in this encounter Visit Diagnoses Diagnosis Type II or unspecified type diabetes mando litus without mention of complication, not stated as uncontrolled Microalbuminuria Proteinuria Unspecified essential hypertension documented in this encounter Care Teams Plasma Processing Technician Relationship Specialty Start Date End Date Eladio Nielsen PCP - General 08/14/11 07/23/16 Benjamin Henao MD PCP - General Internal Medicine 07/24/16 [address] [place] [address] documented as of this encounter
--- OUTSIDE RECORDS SUMMARY | 2022-03-05 07:56 | XMS_ITS | Encounter Summary ---
:1945 Author Organization [place] Address [address] [place] [address] Care Team Providers Name Role Phone Eladio Nielsen Primary Care Provider Unavailable Benjamin Henao MD Primary Care Provider Encounter Details Date Type Department Care Team Description 05/20/2014 [facility] Yudy Adams [address] [address] [facility] [phone] Social History Tobacco Use Types Packs/Day Years [...] on filedocumented in this encounter Care Teams Line Prep Cook Relationship Specialty Start Date End Date Eladio Nielsen PCP - General 08/14/11 07/23/16 Benjamin Henao MD PCP - General Internal Medicine 07/24/[address] [place] [address] documented as of this encounter
--- OUTSIDE RECORDS SUMMARY | 2022-03-05 07:56 | XMS_ITS | Encounter Summary ---
:1945 Author Organization [place] Address [address] [place] [address] Care Team Providers Name Role Phone Eladio Nielsen Primary Care Provider Unavailable Benjamin Henao MD Unavailable Benjamin Henao MD Primary Care Provider Encounter Details Date Type Department Care Team Description 05/03/2015 Records - [facility] Provider, Winter jacobsen Social History [...] on filedocumented in this encounter Care Teams Donor Relations Associate Relationship Specialty Start Date End Date Eladio Nielsen PCP - General 08/14/11 07/23/16 Benjamin Henao MD PCP - General Internal Medicine 07/24/16 [address] [place] [address] Benjamin Henao MD Assigned PCP 10/05/20 [address] [place] [address] documented as of this encounter
--- OUTSIDE RECORDS SUMMARY | 2022-03-05 07:56 | XMS_ITS | Encounter Summary ---
:1945 Author Organization [place] Address [address] [place] [address] Care Team Providers Name Role Phone Eladio Nielsen Primary Care Provider Unavailable Benjamin Henao MD Primary Care Provider Reason for Visit Reason Comments Diabetes Encounter Details Date Type Department Care Team Description 11/19/2014 [facility] [place] Type II or [facility] Provider, Historical unspecified type [facility] diabetes mellitus [address] [facility] without menti on of Drive complication, not [place], [place] [address] [facility] [phone] Social History Tobacco Use Types Packs/Day Years [...] (11/19/2014 8:35 AM CDT) [facility] Time Signature Hemoglobin A1C 7.1 (H) 3.5 - 6.0 11/19/2014 [facility] % 9:19 AM CDT [facility] Specimen Anatomical Collection Method / Collection Time Recei nona Time (Source) Location / Volume Laterality Blood specimen Venipuncture / 11/19/2014 8:35 11/20/19 15 8:35 (specimen) Unknown AM CDT AM CDT Eladio Nielsen LAB - BLOOD ORDERABLES Performing Organization Address City/State/ZIP Code Phon e Number [facility] [address] [place] [phone] CLINIC LABORATORY documented in this encounter Visit Diagnoses Diagnosis Type II or unspecified type diabetes mando litus without mention of complication, not stated as uncontrolled documented in this encounter Care Teams Cultured Marble Products Maker Relationship Specialty Start Date End Date Eladio Nielsen PCP - General 08/14/11 07/23/16 Benjamin Henao MD PCP - General Internal Medicine 07/24/[address] [place] [address] documented as of this encounter
--- OUTSIDE RECORDS SUMMARY | 2022-03-05 07:56 | XMS_ITS | Encounter Summary ---
:1945 Author Organization [place] Address [address] [place] [address] Care Team Providers Name Role Phone Unavailable Primary Care Provider Unavailable Encounter Details Date Type Department Care Team Description 08/13/2007 Historic Results INTERFACED REPORT Lainey Porter [place] [address] (Wo rk) Social History Tobacco Use Types [...] Range Method Time At Signature Copath CASE: [id number] ^ COPATH Report Patient Name: FAITH ADAMES MR#: [id number] Specimen #: [id number] Collected: 08/13/2007 Received: 08/13/2007 Reported: 08/14/2007 13:25 [...] iden tified. MGP/kd 08-14-07 TESTING LAB LOCATION: [address] ??[address] COLLECTION SITE: Client: [facility] Location: ENDO (R) Specimen (Source) Anatomical Collection Method Collection Time Re ceived Time Location / / Volume Laterality 08/13/2007 08/14/2007 1:25 PM CDT Lainey Porter MD LAB - COPATH SPECIAL DIAG OR DERABLES Performing Organization Address City/State/ZIP Code Phon e Number COPATH documented in this encounter Visit Diagnoses Not on filedocumented in this encounter
--- OUTSIDE RECORDS SUMMARY | 2022-03-05 07:56 | XMS_ITS | Encounter Summary ---
:1945 Author Organization [place] Address [address] [place] [address] Care Team Providers Name Role Phone Eladio Nielsen Primary Care Provider Unavailable Benjamin Henao MD Primary Care Provider Encounter Details Date Type Department Care Team Description 04/01/2014 [facility] Provider, [facility] [address] [facility] [address] [place] [address] Social History Tobacco Use Types Packs/Day Years [...] on filedocumented in this encounter Care Teams Domestic Travel Consultant Relationship Specialty Start Date End Date Eladio Nielsen PCP - General 08/14/11 07/23/16 Benjamin Henao MD PCP - General Internal Medicine 07/24/16 [address] [place] [address] documented as of this encounter
--- OUTSIDE RECORDS SUMMARY | 2022-03-05 07:56 | XMS_ITS | Encounter Summary ---
:1945 Author Organization [place] Address [address] [place] [address] Care Team Providers Name Role Phone Eladio Nielsen Primary Care Provider Unavailable Reason for Visit Auth/Cert - Closed Specialty Diagnoses / Procedures Referred By Contact Refer red To Contact Gastroenterology Diagnoses Polyp History Rh Endoscopy Procedures COLONOSCOPY [address] [place] [address] Phone: Fax: Referral ID Status Reason Start Date Expiration Date Visits Requ ested Visits Authorized [id number] Closed 08/14/2011 02/10/2012 1 1 Encounter Details Date Type Department Care Team Description 08/29/2011 Surgery [facility] Endoscopy Duncan Lucas MD COLONOSCOPY [place] XXX RETIRED XXX [address] [facility] [place] [address] [place] [address] [phone] Surgery Details Date/Time Status Location OR Service Patient Class Case Case Trauma Class Type Case? 08/29/11 1:30 Posted RH GI GI A Gastroenterology Outpatient PM Panel [...] encounter Results COLONOSCOPY (08/29/2011 1:31 PM CDT) [facility] Method Time Signature COLONOSCOPY [facility] RAD IOLOGY RESULTS Patient Name: Faith sharma [...] MD) PRN, moderate to severe pain, Starting Sat08/29/11 at 1404, Intra -procedure midazolam (VERSED) injection (CANCELED) 1405 (Given - Provider: Duncan Lucas MD) PRN, anxiety, Starting Sat08/29/11 at 1405, Intra-procedure documented in this encounter Care Teams Payroll Analyst Relationship Specialty Start Date End Date Eladio Nielsen PCP - General 08/14/11 07/23/16 documented as of this encounter
--- OUTSIDE RECORDS SUMMARY | 2022-03-05 07:56 | XMS_ITS | Encounter Summary ---
:1945 Author Organization [place] Address [address] [place] [address] Care Team Providers Name Role Phone Eladio Nielsen Primary Care Provider Unavailable Benjamin Henao MD Primary Care Provider Reason for Visit Reason Comments Nutrition Counseling Encounter Details Date Type Department Care Team Description 01/05/2015 [facility] Ai Koenig Type I I or [facility] Jose R Sanchez RN unspecified type [place] diabetes mellitus [address] without menti on of Drive complication, not [place], [place] stated as [address] [facility] [phone] Social History Tobacco Use Types Packs/Day Years [...] - Inhaled Oxygen Concentration - - Weight 138.8 kg (306 lb) 01/05/2015 10:11 AM CDT Height - - Body Mass Index 45.19 08/29/2011 1:37 PM CDT documented in this encounter Progress Notes Ai Koenig - 01/05/2015 10:17 AM CDT Assessment: Time spent with the patient: 60 minutes for diabetes education and counseling. Previous Education: yes Visit Type:DSMT Education Assessment: Education topics reviewed: Diabetes disease process, Medications (insulin) hypoglycemia, insulin action and pattern control, Physical activity/exercise and Nutrition Plan: Goals ??? Nutrition 1. Continue working on lowering carb intake ??? Other 1. Continue working to get regular activity 2. Consider weight loss programs at [facility] Appointments to be scheduled (Appointment center [phone]): Primary care visit Medication suggestions discussed with patient: None Plan: 1. Continue working on walking regularly 2. Work on being aware of carb intake daily and limiting to 60 grams per meal 3. Consider weight loss programs, Subjective / Objective Faith Adames is referred by Dr. Nielsen for Diabetes Education. Accompanied by: spouse Physical Activity: Patient has been walking on his treadmill 2-3 times per week 3-4 miles at a time.He is working on doing this more consistently. Diet/Eating Habits: Reviewed patient's food logs for two weeks and sent to be scanned. He is making healthy choices, eating 4-5 servings of fruit almost every day. Rice and lentils and pasta is also a large part of his diet. Discussed amount of carb in meals documented. Patient continues to be concerned about his weight. Discussed that he wants results but can not be patient. This is something that he has struggled with his whole life. Discussed options other than diet and exercise such as the weight loss program at the [facility] and non-surgical options through the bariatric center. Discussed supporting him in whatever decision he makes. SMBG pattern/BG ranges: In last two weeks, highest reading is 151. Stated he tests before meals, bt not every one. Hypoglycemia/DKA history: no problems noted. Lab Results Component Value Date HGBA1C 7.1* 11/19/2014 Diabetes medications taken: Currently taking Novolog 20-20-20-0; Lantus 60 units; Metformin 1000mg BID.. Injection administration detail: none. Monitoring Meter (per above goals): Assessed and Discussed Monitoring: Assessed and Discussed BG goals: Assessed and Discussed Nutrition Management Nutrition Management: Assessed and Discussed Weight: Assessed, Discussed and Literature provided Portions/Balance: Assessed and Discussed Carb ID/Count: Assessed and Discussed Label Reading: Assessed and Discussed Heart Healthy Fats: Assessed and Discussed Menu Planning: Assessed and Discussed Dining Out: Assessed and Discussed Physical Activity: Assessed and Discussed Medications: Assessed [...] Psychosocial Adjustments: Assessed and Discussed Ai Koenig 01/05/2015 10:17 AM documented in this encounter Plan of Treatment Not on filedocumented as of this encounter Visit Diagnoses Diagnosis Type II or unspecified type diabetes mando litus without mention of complication, not stated as uncontrolled documented in this encounter Care Teams Coater Associate Relationship Specialty Start Date End Date Eladio Nielsen PCP - General 08/14/11 07/23/16 Benjamin Henao MD PCP - General Internal Medicine 07/24/[address] [place] [address] documented as of this encounter
--- OUTSIDE RECORDS SUMMARY | 2022-03-05 07:56 | XMS_ITS | Encounter Summary ---
:1945 Author Organization [place] Address [address] [place] [address] Care Team Providers Name Role Phone Eladio Nielsen Primary Care Provider Unavailable Benjamin Henao MD Primary Care Provider Reason for Visit Reason Comments Hypertension Diabetes fasting - yes Medication Refill insurance cover cialis - wou ld like the generic for viagra Encounter Details Date Type Department Care Team Description 09/01[facility]2014 [facility] Unsp ecified essential hypertension; [facility] Jose R FORTUNE Type II or unspecified type diabetes mando litus without mention of complication, not stated as uncontrolled; [employer] [address] [employer] ED (erectile dysfunction) [address] [place] [phone] Social History Tobacco Use Types Packs/Day Years [...] origin documented in this encounter Care Teams Video Game Developer Relationship Specialty Start Date End Date Eladio Nielsen PCP - General 08/14/11 07/23/16 Benjamin Henao MD PCP - General Internal Medicine 07/24/16 [address] [place] [phone] documented as of this encounter
--- OUTSIDE RECORDS SUMMARY | 2022-03-05 07:56 | XMS_ITS | Encounter Summary ---
:1945 Author Organization [place] Address [address] [place] [address] Care Team Providers Name Role Phone Eladio Nielsen Primary Care Provider Unavailable Benjamin Henao MD Primary Care Provider Reason for Visit Reason Comments Diabetes Encounter Details Date Type Department Care Team Description 05/20/2014 [facility] Type II or unspecified type diabetes mellitus without mention of complication, not stated as uncontrolled; [facility] Provider, Historical Other and unspecified hyperlipidemia [facility] [address] [place] [address] Social History Tobacco Use Types [...] 139.3 kg (307 lb) 05/20/2014 7:45 AM CIRCUIT BOARD INSPECTOR Height - - Body Mass Index 45.34 [...] ??? blood sugar diagnostic (GLUCOSE BLOOD) Strp Lyn[facility] Contour Test In Vitro Strip.TEST 4 - [...] ??? 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 He has recently seen his mortgage loan funder who switched his simvastatin to Lipitor. He [...] wellhe'll return in 6 months time. Eladio ANAYA Endocrinology 05/20/2014 8:02 AM documented in this encounter Plan of Treatment Not on filedocumented as of this encounter Procedures Procedure Name Priority Date/Time Associated Diagnosis Comme nts LIPID PROFILE Routine 05/20/2014 8:01 AM Results for this CIRCUIT BOARD INSPECTOR procedure are i n the results section . HEMOGLOBIN A1C Routine 05/20/2014 8:01 AM Results for this CIRCUIT BOARD INSPECTOR procedure are i n the results section . documented in this encounter Results (ABNORMAL) Hemoglobin A1c (05/20/2014 8:01 AM CIRCUIT BOARD INSPECTOR) Analysis Performed At Path logist Time Signature Hemoglobin A1C 7.4 (H) 3.5 - 6.0 05/20/2014 [facility] % 8:25 AM CIRCUIT BOARD INSPECTOR [facility] Specimen Anatomical Collection Method / Collection Time Recei nona Time (Source) Location / Volume Laterality Blood specimen Venipuncture / 05/20/2014 8:01 05/20/19 15 8:01 (specimen) Unknown AM CIRCUIT BOARD INSPECTOR AM CIRCUIT BOARD INSPECTOR Eladio Nielsen LAB - BLOOD ORDERABLES Performing Organization Address City/[facility] Phon e Number [facility] [place] [address] [place] [phone] CLINIC LABORATORY (ABNORMAL) Lipid Profile (05/20/2014 8:01 AM CIRCUIT BOARD INSPECTOR) [facility] gist Method Time Signature Triglycerides 226 (H) <=149 05/20/2014 HEALTH mg/dL 4:48 PM CIRCUIT BOARD INSPECTOR [facility] Cholesterol 140 <=199 05/20/2014 [facility]ALTH mg/dL 4:48 PM [facility] LDL Cholesterol 54 0 - 129 05/20/2014 [facility]ALTH Calculated mg/dL 4:48 PM CIRCUIT BOARD INSPECTOR [facility] Direct Measure 41 >=40 05/20/2014 [facility] HDL mg/dL 4:48 PM CIRCUIT BOARD INSPECTOR [facility] Specimen Anatomical Collection Method / Collection Time Recei nona Time (Source) Location / Volume Laterality Blood specimen Venipuncture / 05/20/2014 8:01 05/20/19 15 3:53 (specimen) Unknown AM CIRCUIT BOARD INSPECTOR PM CIRCUIT BOARD INSPECTOR Eladio Nielsen LAB - BLOOD ORDERABLES Performing Organization Address City/[facility] Phon [place] [address] [phone] [facility] [address] [facility] documented in this encounter Visit Diagnoses Diagnosis Type II or unspecified type diabetes mando litus without mention of complication, not stated as uncontrolled Other and unspecified hyperlipidemia documented in this encounter Care Teams Signal Maintainer Relationship Specialty Start Date End Date Eladio Nielsen PCP - General 08/14/11 07/23/16 Benjamin Henao MD PCP - General Internal Medicine 07/24/16 [address] [place] [address] documented as of this encounter
--- OUTSIDE RECORDS SUMMARY | 2022-03-05 07:56 | XMS_ITS | Encounter Summary ---
:1945 Author Organization [place] Address [address] [place] [address] Care Team Providers Name Role Phone Eladio Nielsen Primary Care Provider Unavailable Benjamin Henoa MD Unavailable Benjamin Henao MD Primary Care Provider Encounter Details Date Type Department Care Team Description 08/29/2011 Records - [facility] Provider, Histor ical Social History Tobacco Use [...] on filedocumented in this encounter Care Teams Heating And Ventilating Worker Relationship Specialty Start Date End Date Eladio Nielsen PCP - General 08/14/11 07/23/16 Benjamin Henao MD PCP - General Internal Medicine 07/24/16 [address] [place] [address] Benjamin Henao MD Assigned PCP 10/05/20 [address] [place] [address] documented as of this encounter
--- OUTSIDE RECORDS SUMMARY | 2022-03-05 07:56 | XMS_ITS | Encounter Summary ---
:1945 Author Organization [place] Address [address] [place] [address] Care Team Providers Name Role Phone Eladio Nielsen Primary Care Provider Unavailable Benjamin Henao MD Unavailable Benjamin Henao MD Primary Care Provider Encounter Details Date Type Department Care Team Description 10/17/2015 Records - [facility] CONVERSION Provider, Winter jacobsen Social History [...] on filedocumented in this encounter Care Teams Quality Internship Relationship Specialty Start Date End Date Eladio Nielsen PCP - General 08/14/11 07/23/16 Benjamin Henao MD PCP - General Internal Medicine 07/24/[address] [place] [address] Benjamin Henao MD Assigned PCP 10/05/[address] [place] [address] documented as of this encounter
--- OUTSIDE RECORDS SUMMARY | 2022-03-05 07:56 | XMS_ITS | Encounter Summary ---
:1945 Author Organization [place] Address [address] [place] [address] Care Team Providers Name Role Phone Eladio Nielsen Primary Care Provider Unavailable Benjamin Henao MD Unavailable Benjamin Henao MD Primary Care Provider Encounter Details Date Type Department Care Team Description 04/10/2013 [facility] Brian Nielsen [address] [address] [facility] [phone] Social History Tobacco Use Types Packs/Day Years [...] Associated Diagnosis Comme nts HEMOGLOBIN A1C Routine 04/10/2013 12:45 PM Result s for this LEADER WRITER procedure are i n the results section . documented in this encounter Results (ABNORMAL) Hemoglobin A1c (04/10/2013 12:45 PM LEADER WRITER) Analysis Performed At Patho logist Time Signature Hemoglobin A1C 7.3 (H) 3.5 - 6.0 04/10/2013 [facility] 12:45 PM LEADER WRITER [facility] Specimen Anatomical Collection Method Collection Time Receive d Time (Source) Location / / Volume Laterality 04/10/2013 12:45 04/10/2013 PM LEADER WRITER 12:45 PM LEADER WRITER Eladio Nielsen LAB - BLOOD ORDERABLES Performing Organization Address City/State/ZIP Code Phon e Number [facility] [place] [address] [place] [phone] CLINIC LABORATORY documented in this encounter Visit Diagnoses Not on filedocumented in this encounter Care Teams Paradi Tender Relationship Specialty Start Date End Date Eladio Nielsen PCP - General 08/14/11 07/23/16 Benjamin Henao MD PCP - General Internal Medicine 07/24/[address] [place] [address] Benjamin Henao MD Assigned PCP 10/05/[address] [place] [address] documented as of this encounter
--- OUTSIDE RECORDS SUMMARY | 2022-03-05 07:56 | XMS_ITS | Encounter Summary ---
:1945 Author Organization [place] Address [address] [place] [address] Care Team Providers Name Role Phone Unavailable Primary Care Provider Unavailable Encounter Details Date Type Department Care Team Description 06/28/2004 Historic Results INTERFACED REPORT Lainey Porter [place] [address] (Wo rk) Social History Tobacco Use Types Packs/Day Years Used Date Smoking Tobacco: Never Assessed Sex Assigned at Date Recorded Not on file documented as of this encounter Plan of Treatment Not on filedocumented as of this encounter Procedures Procedure Name Priority Date/Time Associated Diagnosis Comme nts HISTOPATHOLOGY Routine 06/28/2004 12:00 AM Result s for this COSMETOLOGIST APPRENTICE procedure are i n the results section . documented in this encounter Results Histopathology (06/28/2004 12:00 AM COSMETOLOGIST APPRENTICE) Component Value Ref Test Analysis Performed At [facility] Range Method Time Signature Copath Report CASE: [id number] ^ COPATH MR#: [id number] Patient Name: FAITH ADAMES Collected: 06/28/2004 Received: [...] / Volume Laterality 06/28/2004 06/29/2004 4:46 PM COSMETOLOGIST APPRENTICE Lainey Porter MD LAB - COPATH SPECIAL DIAG OR DERABLES Performing Organization Address City/State/ZIP Code Phon e Number COPATH documented in this encounter Visit Diagnoses Not on filedocumented in this encounter
--- OUTSIDE RECORDS SUMMARY | 2022-03-05 07:56 | XMS_ITS | Encounter Summary ---
:1945 Author Organization [place] Address [address] [place] [address] Care Team Providers Name Role Phone Eladio Nielsen Primary Care Provider Unavailable Benjamin Henao MD Primary Care Provider Reason for Visit Reason Comments Diabetes check up Blood Pressure Check Encounter Details Date Type Department Care Team Description 03/11/2015 [facility], Type II or unspecified type diabetes mellitus without mention of complication, not stated as uncontrolled; [facility] Jose R FORTUNE Unspecified essential hypertension; [facility] [address] Other and unspecified hyperl ipidemia; [address] es[address]itis [address] [place], [place] [address] Social History Tobacco Use Types Packs/Day [...] (306 lb 11.2 oz) 03/11/2015 9:10 AM GROCERY CHECKER Height 174 cm (5' 8.5) 03/11/2015 9:10 AM GROCERY CHECKER Body Mass Index 45.96 03/11/2015 9:10 AM GROCERY CHECKER documented in this encounter Progress Notes Juliano Benjamin Chilo - 03/11/2015 9:22 AM CST ASSESSMENT: [...] all things are normal. He reports that [id number] he had an MRI done and it [...] for this visit. Total data points: 4 ERY CHECKER documented in this encounter Plan of Treatment Not on filedocumented as of this encounter Procedures Procedure Name Priority Date/Time Associated Diagnosis Comme nts LIPID PROFILE Routine 03/11/2015 9:40 AM Results for this GROCERY CHECKER procedure are i n the results section . HEMOGLOBIN A1C Routine 03/11/2015 9:40 AM Results for this GROCERY CHECKER procedure are i n the results section . documented in this encounter Results (ABNORMAL) Hemoglobin A1c (03/11/2015 9:40 AM GROCERY CHECKER) [facility] Hemoglobin A1C 7.7 (H) 3.5 - 6.0 03/11/2015 [facility] % 10:00 AM GROCERY CHECKER [facility] Specimen Anatomical Collection Method / Collection Time Recei nona Time (Source) Location / Volume Laterality Blood specimen Venipuncture / 03/11/2015 9:40 03/11/20 15 9:40 (specimen) Unknown AM GROCERY CHECKER AM GROCERY CHECKER Authorizing Provider Result Edel Henao MD LAB - BLOOD ORDERABLES Performing Organization Address City/State/ZIP Code Phon e Number [facility] [place] [address] [place] [phone] CLINIC LABORATORY Lipid Profile (03/11/2015 9:40 AM GROCERY CHECKER) [facility] gist Method Time Signature Cholesterol 135 <=199 03/11/2015 HEALTH mg/dL 3:29 PM GROCERY CHECKER [facility] Triglycerides 118 <=149 03/11/2015 [facility]ALTH mg/dL 3:29 PM GROCERY CHECKER [facility] Direct Measure HDL 41 >=40 mg/dL 03/11/2015 [facility] 3:29 PM GROCERY CHECKER [facility] LDL Cholesterol 70 <=129 03/11/2015 HEALTH Calculated mg/dL 3:29 PM GROCERY CHECKER [facility] Patient Fasting > Yes 03/11/2015 [facility]ALTH 8hrs? 3:29 PM [facility] Specimen Anatomical Collection Method / Collection Time Recei nona Time (Source) Location / Volume Laterality Blood specimen Venipuncture / 03/11/2015 9:40 03/11/20 15 2:16 (specimen) Unknown AM GROCERY CHECKER PM GROCERY CHECKER Authorizing Provider Result Edel Henao MD LAB - BLOOD ORDERABLES Performing Organization Address City/State/ZIP Code Phon e Number [place] [address] [phone] [address] [facility] documented in this encounter Visit Diagnoses Diagnosis Type II or unspecified type diabetes mando litus without mention of complication, not stated as uncontrolled Unspecified essential hypertension Other and unspecified hyperlipidemia Chronic reflux esophagitis documented in this encounter Care Teams Haulpak Driver Relationship Specialty Start Date End Date Eladio Nielsen PCP - General 08/14/11 07/23/16 Benjamin Henao MD PCP - General Internal Medicine 07/24/[address] [place] [address] documented as of this encounter
--- OUTSIDE RECORDS SUMMARY | 2022-03-05 07:56 | XMS_ITS | Encounter Summary ---
:1945 Author Organization [facility] Address [address] [place] [address] Care Team Providers Name Role Phone Eladio Nielsen Primary Care Provider Unavailable Benjamin Henao MD Primary Care Provider Encounter Details Date Type Department Care Team Description 01/07/2014 Ambulatory - [facility] Eladio Nielsen Type II or [facility] Provider, Historical unspecified type [place] diabetes mellitus [address] without menti on of Drive complication, not [place], [place] stated as [id number] [facility] [phone] Social History Tobacco Use Types Packs/Day Years [...] (01/07/2014 9:41 AM CDT) Analysis Performed At [facility] logist Time Signature Hemoglobin A1C 7.0 (H) 3.5 - 6.0 01/07/2014 HEALTH % 10:03 AM CDT [facility] Specimen Anatomical Collection Method / Collection Time Recei nona Time (Source) Location / Volume Laterality Blood specimen Venipuncture / 01/07/2014 9:41 01/08/20 14 9:42 (specimen) Unknown AM CDT AM CDT Eladio Nielsen LAB - BLOOD ORDERABLES Performing Organization Address City/State/ZIP Code Phon e Number [facility] [place] [address] [place] [phone] CLINIC LABORATORY documented in this encounter Visit Diagnoses Diagnosis Type II or unspecified type diabetes mando litus without mention of complication, not stated as uncontrolled documented in this encounter Care Teams J2Ee Developer Relationship Specialty Start Date End Date Eladio Nielsen PCP - General 08/14/11 07/23/16 Benjamin Henao MD PCP - General Internal Medicine 07/24/16 [address] [place] [address] documented as of this encounter
--- OUTSIDE RECORDS SUMMARY | 2022-03-05 07:56 | XMS_ITS | Encounter Summary ---
:1945 Author Organization [facility] Address [address] [place] [address] Care Team Providers Name Role Phone Eladio Nielsen Primary Care Provider Unavailable Benjamin Henao MD Primary Care Provider Reason for Visit Reason Comments Follow Up blood pressure, possible blo od work Encounter Details Date Type Department Care Team Description [facility], Type II or unspecified type diabetes mellitus without mention of complication, not stated as uncontrolled; [facility] R [place] Obstructive sleep apnea (adult) (pediatr ic); [place] [address] [place] Unspecified essential hypert ension; [address] [address] Coronary atherosclerosis of unspecified type of vessel, burns [place] [phone] Social History Tobacco Use Types Packs/Day Years [...] Body Mass Index 46.57 03/11/2015 9:10 AM [facility] documented in this encounter Progress Notes Benjamin Henao - 11/07/2015 10:20 AM CDT ASSESSMENT: Type [...] closed the clinic. 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 [...] A1C 7.8 (H) 3.5 - 6.0 11/07/2015 M [facility] % 10:55 AM CDT [facility] Specimen Anatomical Collection Method / Collection Time Recei nona Time (Source) Location / Volume Laterality Blood specimen Venipuncture / 11/07/2015 10:41 016 (specimen) Unknown AM CDT 10:41 AM CDT Benjamin Henao MD LAB - BLOOD ORDERABLES Performing Organization Address City/State/ZIP Code Phon e Number [facility] [place] [address] [facility] [address] [address] CLINIC LABORATORY documented in this encounter Visit Diagnoses Diagnosis Type II or unspecified type diabetes mando litus without mention of complication, not stated as uncontrolled Obstructive sleep apnea (adult) (pediatr ic) Unspecified essential hypertension Coronary atherosclerosis of unspecified type of vessel, burns paiute or graft documented in this encounter Care Teams Microsoft Crm Developer Relationship Specialty Start Date End Date Eladio Nielsen PCP - General 08/14/11 07/23/16 Benjamin Henao MD PCP - General Internal Medicine 07/24/16 [address] [place] [address] documented as of this encounter
--- OUTSIDE RECORDS SUMMARY | 2022-03-05 07:57 | XMS_ITS | Clinical Summary ---
:1945 Author Organization [facility] [place] [address] Care Team Providers Name Role Phone Avery [...] Specialty Care Team Description 01/23/2022 Ancillary Procedure 01/23/2022 Travel from Last 3 Months Immunizations Name [...] CDT Respiratory Rate 16 03/06/2021 3:17 PM E [employer] Oxygen Saturation 99% 08/14/2021 11:39 AM CDT Inhaled Oxygen Concentration - - Weight 105.9 kg (233 lb 6.4 oz) 08/14/2021 11:39 AM CDT Height 172.7 cm (5' 8) 02/14/2021 6:00 AM CDT Body Mass Index 35.49 02/14/2021 6:00 AM CDT Plan of Treatment Health Maintenance Due Date Last Done Comments Tdap 1956 Depression screening for age 12+ 1957 Hepatitis C screening for age 0509/18/1963 18-79 Tetanus booster 1965 Zoster (shingles) series for age 0509/18/1995 50+ (1 of 2) Medicare Wellness for age 65+ 2010 Pneumococcal series for age 65+ (2 05/19/2015 05/19/2014 - PPSV23 if available, else PCV20) BMI (ht and wt on same day) for 11/11/2019 11/10/2018, 12/21, age 18+ 2017, Additional history exists COVID-19 vaccine series (2 - 02/14/2021 01/24/2021 Pfizer series) Influenza for age 65+ 12/21/2021 Procedures Procedure Name Priority Date/Time Associated Diagnosis Comme nts CT ABDOMEN PELVIS Routine 01/23/2022 10:45 AM Kidney stones Re sults for this STONE PROTOCOL WO CDT procedure are in the results section. from Last [address] ABDOMEN PELVIS STONE PROTOCOL WO (01/23/2022 10:45 AM CDT) Anatomical Region Laterality Modality Abdomen, Pelvis, AORTA, LIVER, SPLEEN Co mputed Tomography Specimen (Source) Anatomical Collection Method Collection Time Re ceived Time Location / / Volume Laterality 01/23/2022 11:17 AM CDT Narrative 01/23/2022 11:17 AM CDT For Patients: ??As a result of the Century Cures Act, medical imaging exams and procedure report s are released immediately into your [facility] medical record. ??You may view this report before your referring provider. ??If you have questions, please contact your health care provider. Indication: Kidney stone Technique: Noncontrast CT abdomen and pelvis Comparison: No comparison Findings: Heart size is normal. Right basilar ate lectasis. Moderate hiatal hernia containing fat. Fatty infiltration of the pancreas. No abdominal aortic aneurysm. Liver gall bladder adrenal glands unremarkable sling is not visualized Punctate nonobstructing left renal calcu li no hydronephrosis. No abdominal aortic aneurysm. Large amount of stool within the colon bowel appears unremarkable. Postsurgical changes ventral hernia repa ir some strandy opacities in the subcutaneous abdominal wall likely reflecting areas of scarring. Urinary bladder demonstrates wall thickening and marked enlargem ent of prostate gland. This may be relat ed to bladder outlet obstruction. No suspicious bony lesions are seen. Impression: 1. Punctate nonobstructing left renal ca lculi. 2. Marked enlargement of prostate gland. Wall thickening of urinary bladder related to bladder outlet obstruction. Please note that all CT scans at this fa [facility] use dose modulation, iterative reconstruction, and/or weight-based dosing when appropriate to reduce radiation dose to as low as reasonably achievable. Dictated by Kelsey Luis MD @ Jan ??4 2 022 11:17AM (Electronically Signed) ?? Procedure Note Kelsey Luis MD - 01/23/2022 For Patients: As a result of the ntury Cures Act, medical imaging exams and procedure reports are released immediately into your electronic medical record. You may view this report before your referring provider. If you have questions, please contact [facility] care provider. Indication: Kidney stone Technique: Noncontrast CT abdomen and pelvis Comparison: No comparison Findings: Heart size is normal. Right basilar ate lectasis. Moderate hiatal hernia containing fat. Fatty infiltration of the pancreas. No abdominal aortic aneurysm. Liver gall bladder adrenal glands unremarkable sling is not visualized Punctate nonobstructing left renal calcu li no hydronephrosis. No abdominal aortic aneurysm. Large amount of stool within the colon bowel appears unremarkable. Postsurgical changes ventral hernia repa ir some strandy opacities in the subcutaneous abdominal wall likely reflecting areas of scarring. Urinary bladder demonstrates wall thickening and marked enlargement of prostate gland. This may be related to bladder ou tlet obstruction. No suspicious bony lesions are seen. Impression: 1. Punctate nonobstructing left renal ca lculi. 2. Marked enlargement of prostate gland. Wall thickening of urinary bladder related to bladder outlet obstruction. Please note that all CT scans at this fa cility use dose modulation, iterative reconstruction, and/or weight-based dosing when appropriate to reduce radiation dose to as low as reasonably achievable. Dictated by Kelsey Luis MD @ Jan 23 202 2 11:17AM (Electronically Signed) Monroe Ruelas MD CT from Last 3 Months Insurance Payer Benefit Plan / Subscriber ID Effective Dates Phone Addre ss Type Group MEDICARE PART A MEDICARE PART A [id number] 2010-Present ATTN: CLAIMS - HB USE ONLY HB ONLY [address] [place] [address] [employer] [place] [employer] MEDICARE [id number] 2019-Present [address] [place] [address] Advance Directives Latest Code Status on File Code Status Date Activated Date Inactivated Comments Full Code 02/14/2021 5:51 AM 02/14/2021 12:52 PM Code Status Discussion: Not Discussed Care Teams Animal Care Provider Relationship Specialty Start Date End Date Ai Clarke, PCP - General Internal Medicine 02/02/21 [address] [place] [address] Avery Waldrop, Consulting Physician Cardiovascular Disease 11/22 05/06
--- NOTE | 2022-03-05 07:58 | ED_ITS ---
HPI - GI Bleed General Chief complaint: GI Bleed <Yaquelin Sauceda MD - Last Filed: 03/05/22 08:12> Stated complaint: Black stool <Yaquelin Sauceda MD - Last Filed: 03/05/22 08:12> Time Seen by Provider: 03/05/22 07:42 <Yaquelin Sauceda MD - Last Filed: 03/05/22 08:12> Source: patient and family <Yaquelin Sauceda MD - Last Filed: 03/05/22 08:12> Mode of arrival: ambulatory <Yaquelin Sauceda MD - Last Filed: 03/05/22 08:12> Limitations: no limitations <Yaquelin Sauceda MD - Last Filed: 03/05/22 08:12> History of Present Illness HPI Narrative: 76-year-old male with a notable prior history of Falguni-en-Y gastric bypass presents to the emergency department because of a red bloody stool yesterday now followed by a black tarry stool today. Patient had a colonoscopy last performed in August of this year, was notable for 8 adenomatous polyps which were all removed. Patient does not use a proton pump inhibitor, has no prior history of GI bleed. Patient's gastric bypass surgery was 4 years ago. It was complicated by laceration of the splenic artery which required transition to an open laparotomy, splenic removal and repair of the artery. He has not had troubles with leakage at his anastomosis side or other complications since the surgery. He does take aspirin 81 mg once daily but no other anticoagulants. No history of DVT nor PE. He does have a notable history of an elevated PSA including workup involving an MRI earlier this year. PSA has been decreasing. This is not thought to be related to his current symptoms. Patient states that he lost about 85 lb initially after surgery in the 1st 18 months, then his weight plateaued. But over the last 3 months he has lost at least another 10 lb and feels like his appetite has been very good. He says that he has frequent dry mouth and a salty taste in his mouth in his left unable to tolerate salty tasting foods. He tried stopping his potassium supplement and also his trazodone for a period of time with no significant improvement in those symptoms. He says that he felt very fatigued yesterday and was unable to work out though he denies any chest pain or shortness of breath. Denies any abdominal trauma. His past medical history is notable for type 2 diabetes, diet controlled, hypertension. He has also had a ventral hernia repair in addition to the gastric bypass in terms of pertinent surgeries. Family history is notable for a brother with stomach cancer does not appear to be anyone with bleeding or blood clotting disorders. Socially he is a nonsmoker with no suspicion for illicit drug use or pertinent travel. Home medications are reviewed, notable for losartan, trazodone which he does not use every day and his typical vitamin supplements following gastric bypass surgery as well as the aspirin and also atorvastatin. Allergies include an intolerance to lisinopril causing a cough and also cat dander. <Yaquelin Sauceda MD - Last Filed: 03/05/22 08:12> Related Data Home medications: Home Medications Medication Instructions Recorded Confirmed calcium citrate zinc 1 tab PO BID 01/04/22 03/05/22 cholecalciferol (vitamin D3) 125 120 mcg PO DAILY 01/04/22 03/06/22 mcg (5,000 unit) tablet cyanocobalamin (vitamin B-12) 1,000 mcg PO .3 x weekly 01/04/22 03/05/22 1,000 mcg tablet ferrous sulfate 325 mg (65 mg 60 mg PO DAILY 01/04/22 03/06/22 iron) tablet (FeroSul) multivitamin 1 tab PO BID 01/04/22 03/05/22 potassium citrate 5 mEq (540 mg) 5 meq PO TID 01/04/22 03/05/22 tablet,extended release atorvastatin 20 mg tablet 20 mg PO HS 03/06/22 03/06/22 trazodone 100 mg tablet 100 mg PO HS 03/06/22 03/06/22 Previous Rx's Medication Instructions Recorded losartan 50 mg tablet 50 mg PO DAILY #90 tabs 01/04/22 atorvastatin 20 mg tablet 20 mg PO QHS #90 tabs 03/06/22 omeprazole 20 mg tablet,delayed 20 mg PO DAILY #60 tabs 03/06/22 release sucralfate 1 gram tablet 1 g PO ACHS #120 tabs 03/06/22 <Yaquelin Sauceda MD - Last Filed: 03/05/22 08:12> Allergies/Adverse reactions: Allergies Allergy/AdvReac Type Severity Reaction Status Date / Time No Known Allergies Allergy Verified 03/05/22 20:53 <Yaquelin Sauceda MD - Last Filed: 03/05/22 08:12> [facility] Medical History: Medical History (Updated 03/06/22 @ 14:08 by Eladio Plummer MD) Acute upper gastrointestinal bleeding Adenomatous polyp of colon Anemia Essential hypertension Hyperlipidemia Nephrolithiasis Obesity with body mass index greater than 30 Obstructive sleep apnea syndrome Type 2 diabetes mellitus <Yaquelin Sauceda MD - Last Filed: 03/05/22 08:12> Surgical History: Surgical History History of incisional hernia repair (2021) History of renal calculi (2020) 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 Code status is full. Quit smoking 32 years ago. Occasional use of alcohol. Highest level of school completed/degree received: Doctoral degree Smoking Status: Former smoker Do you use any of these nicotine containing products: None Second hand tobacco smoke exposure: No How often do you have a drink containing alcohol: monthly or less AUDIT-C Alcohol total score: 1 Non-prescribed substance use: denies use <Yaquelin Sauceda MD - Last Filed: 03/05/22 08:12> Exam Const: Vital Signs, click to edit/add: Vital Signs - 24 hr 03/06/22 11:30 Temperature 97.7 F Pulse Rate [Right Radial] 75 Respiratory Rate 18 Blood Pressure [Ri ght Arm] 126/79 Pulse Oximetry 98 Oxygen Delivery Me thod Room Air <Yaquelin Sauceda MD - Last Filed: 03/05/22 08:12> Vital Signs, click to edit/add: Vital Signs - 24 hr 03/06/22 11:30 Temperature 97.7 F Pulse Rate [Right Radial] 75 Respiratory Rate 18 Blood Pressure [Ri ght Arm] 126/79 Pulse Oximetry 98 Oxygen Delivery Me thod Room Air <Katlin Guthrie MD - Last Filed: 03/05/22 16:56> Vital Signs, click to edit/add: Vital Signs - 24 hr 03/06/22 11:30 Temperature 97.7 F Pulse Rate [Right Radial] 75 Respiratory Rate 18 Blood Pressure [Ri ght Arm] 126/79 Pulse Oximetry 98 Oxygen Delivery Me thod Room Air <Austin Blanco MD - Last Filed: 03/07/22 10:28> Documenting provider has reviewed patient's vital signs: yes <Yaquelin Sauceda MD - Last Filed: 03/05/22 08:12> Common normals: no apparent distress <Yaquelin Sauceda MD - Last Filed: 03/05/22 08:12> Exam limitations: altered mental status <Yaquelin Sauceda MD - Last Filed: 03/05/22 08:12> General appearance: cooperative, comfortable and well kempt <Yaquelin Sauceda MD - Last Filed: 03/05/22 08:12> Orientation/consciousness: Yes awake <Yaquelin Sauceda MD - Last Filed: 03/05/22 08:12> Other: Very mild lapses in memory are noted during the interview. 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 <Yaquelin Sauceda MD - Last Filed: 03/05/22 08:12> HENMT: Common normals: normocephalic <Yaquelin Sauceda MD - Last Filed: 03/05/22 08:12> Head and scalp: normal to inspection and normocephalic <Yaquelin Sauceda MD - Last Filed: 03/05/22 08:12> Face and sinus: normal facial exam <Yaquelin Sauceda MD - Last Filed: 03/05/22 08:12> Mouth: oral and palatal mucosa normal <MD Grant Puga Last Filed: 03/05/22 08:12> Throat: posterior oropharynx normal <MD Grant Puga Last Filed: 03/05/22 08:12> Eye: Common normals: conjunctivae normal and no scleral icterus <MD Grant Puga Last Filed: 03/05/22 08:12> Conjunctiva: conjunctiva(e) normal <MD Grant Puga Last Filed: 03/05/22 08:12> Neck & C-Spine: Common normals: full ROM and no lymphadenopathy <MD Grant Puga Last Filed: 03/05/22 08:12> Resp: Common normals: normal respiratory effort, no use of accessory muscles and clear to auscultation bilaterally <MD Grant Puga Last Filed: 03/05/22 08:12> Auscultation: clear to auscultation bilaterally <MD Grant Puga Last Filed: 03/05/22 08:12> Cardio: Common normals: regular rate, regular rhythm, S1 normal heart sound, S2 normal heart sound, no murmurs and peripheral pulses 2+ throughout <MD Grant Puga Last Filed: 03/05/22 08:12> Rate: regular rate <MD Grant Puga Last Filed: 03/05/22 08:12> Rhythm: regular rhythm <MD Grant Puga Last Filed: 03/05/22 08:12> Heart sounds: S1 normal and S2 normal <MD Grant Puga Last Filed: 03/05/22 08:12> Peripheral pulses: pulses 2+ throughout <MD Grant Puga Last Filed: 03/05/22 08:12> GI: Common normals: Normal to inspection, nondistended, normoactive bowel sounds present, soft to palpation, non-tender, no hepatosplenomegaly and no masses <MD Grant Puga Last Filed: 03/05/22 08:12> Palpation: soft and no hepatosplenomegaly <Yaquelin Sauceda MD - Last Filed: 03/05/22 08:12> : Other: Rectal exam reveals normal external appearance, normal tone. There is a small amount of stool present in the rectal vault. This is collected and a bedside Hemoccult test is strongly positive. <Yaquelin Sauceda MD - Last Filed: 03/05/22 08:12> Back & Pelvis: Common normals: thoracic and lumbar spine normal to inspection <Yaquelin Sauceda MD - Last Filed: 03/05/22 08:12> Extremity: Common normals: normal capillary refill and no pedal edema <Yaquelin Sauceda MD - Last Filed: 03/05/22 08:12> Neuro: Common normals: moves all extremities and no focal motor deficits <Yaquelin Sauceda MD - Last Filed: 03/05/22 08:12> Sensorium/orientation: awake <Yaquelin Sauceda MD - Last Filed: 03/05/22 08:12> Speech: speech normal <Yaquelin Sauceda MD - Last Filed: 03/05/22 08:12> Motor exam: strength 5/5 throughout, no tremor noted and no movement abnormalities noted <Yaquelin Sauceda MD - Last Filed: 03/05/22 08:12> Psych: Appearance: well kempt <Yaquelin Sauceda MD - Last Filed: 03/05/22 08:12> Attitude: calm and engaged <MD Grant Puga Last Filed: 03/05/22 08:12> Activity/motor behavior: appropriate eye contact <MD Grant Puga Last Filed: 03/05/22 08:12> Mood and affect: euthymic mood <Yaquelin Sauceda MD - Last Filed: 03/05/22 08:12> Skin: Common normals: no rashes or lesions noted <MD Grant Puga Last Filed: 03/05/22 08:12> General skin exam: no rashes or lesions noted <Yaquelin Sauceda MD - Last Filed: 03/05/22 08:12> Course Reevaluation(s) Reevaluation #1: Reviewed with patient his hemoglobin is down, he was aware that his hemog lobin was in the 12 range in December. Discussed with him that I had already reviewed this with our surgeon whom would be on-call. Recommendations are to have him have endoscopy at a more advanced institution capable of handling this. He does understand. We discussed options and we will start with [facility] system 1st. <Katlin Guthrie MD - Last Filed: 03/05/22 16:56> Reevaluation #2: Reviewed with patient the plan to transfer to [facility], that I had spoken with GI specialist. He had had 500 mL of LR bolus on arrival. As he is NPO, reviewed with him that we will start maintenance fluid. He has had no further bleeding episodes. <Katlin Guthrie MD - Last Filed: 03/05/22 16:56> Time: 11:57 <Katlin Guthrie MD - Last Filed: 03/05/22 16:56> Reevaluation #3: Still awaiting transfer to [facility]. Patient is stable. Will continue LR at 125 mL an hour. His hemoglobin recheck about 8 hours after admission is stable at 9. I have let our surgeon know that patient is still here, she does think that I can allow him clear liquids at this time as he will not likely be scoped tonight. <Katlin Guthrie MD - Last Filed: 03/05/22 16:56> Time: 16:42 <Katlin Guthrie MD - Last Filed: 03/05/22 16:56> Consultations Consultation #1: Spoke with Dr. Riley on-call [facility] through [facility]. She agrees that this is an acceptable transfer. We are currently wait listed. We will update their facility if there is any change in status. <Katlin Guthrie MD - Last Filed: 03/05/22 16:56> Time: 11:09 <Katlin Guthrie MD - Last Filed: 03/05/22 16:56> Consultation #2: Informed that there are no beds regionally and no transfers to farther flung destinations, especially [facility] given the weather system. Dr. Plummer is aware and thankfully admitting this patient. Possible bed availability at [facility] in the morning. No events in the ER. <Austin Blanco MD - Last Filed: 03/07/22 10:28> Time: 18:09 <Austin Blanco MD - Last Filed: 03/07/22 10:28> Vital Signs Vital signs: Initial Vital Signs Temperature 98.2 F 03/05/22 06:58 Temperature Source Temporal Artery Scan 03/05/22 06:58 Pulse Rate 100 03/05/22 06:58 Respiratory Rate 16 03/05/22 06:58 Blood Pressure 135/83 03/05/22 06:58 Blood Pressure Mean 100 03/05/22 06:58 Blood Pressure Position Sitting 03/05/22 06:58 Pulse Oximetry 99 03/05/22 06:58 Oxygen Delivery Method 03/05/22 06:58 Vital Signs Temperature 98.2 F 03/05/22 06:58 Pulse Rate 100 03/05/22 06:58 Respiratory Rate 16 03/05/22 06:58 Blood Pressure 135/83 03/05/22 06:58 Pulse Oximetry 99 03/05/22 06:58 Oxygen Delivery Method 03/05/22 06:58 Temperature 97.7 F 03/06/22 11:30 Pulse Rate 75 03/06/22 11:30 Respiratory Rate 18 03/06/22 11:30 Blood Pressure 126/79 03/06/22 11:30 Pulse Oximetry 98 03/06/22 11:30 Oxygen Delivery Method 03/06/22 11:30 <Yaquelin Sauceda MD - Last Filed: 03/05/22 08:12> Initial Vital Signs Temperature 98.2 F 03/05/22 06:58 Temperature Source Temporal Artery Scan 03/05/22 06:58 Pulse Rate 100 03/05/22 06:58 Respiratory Rate 16 03/05/22 06:58 Blood Pressure 135/83 03/05/22 06:58 Blood Pressure Mean 100 03/05/22 06:58 Blood Pressure Position Sitting 03/05/22 06:58 Pulse Oximetry 99 03/05/22 06:58 Oxygen Delivery Method 03/05/22 06:58 Vital Signs Temperature 98.2 F 03/05/22 06:58 Pulse Rate 100 03/05/22 06:58 Respiratory Rate 16 03/05/22 06:58 Blood Pressure 135/83 03/05/22 06:58 Pulse Oximetry 99 03/05/22 06:58 Oxygen Delivery Method 03/05/22 06:58 Temperature 97.7 F 03/06/22 11:30 Pulse Rate 75 03/06/22 11:30 Respiratory Rate 18 03/06/22 11:30 Blood Pressure 126/79 03/06/22 11:30 Pulse Oximetry 98 03/06/22 11:30 Oxygen Delivery Method 03/06/22 11:30 <Katlin Guthrie MD - Last Filed: 03/05/22 16:56> Initial Vital Signs Temperature 98.2 F 03/05/22 06:58 Temperature Source Temporal Artery Scan 03/05/22 06:58 Pulse Rate 100 03/05/22 06:58 Respiratory Rate 16 03/05/22 06:58 Blood Pressure 135/83 03/05/22 06:58 Blood Pressure Mean 100 03/05/22 06:58 Blood Pressure Position Sitting 03/05/22 06:58 Pulse Oximetry 99 03/05/22 06:58 Oxygen Delivery Method 03/05/22 06:58 Vital Signs Temperature 98.2 F 03/05/22 06:58 Pulse Rate 100 03/05/22 06:58 Respiratory Rate 16 03/05/22 06:58 Blood Pressure 135/83 03/05/22 06:58 Pulse Oximetry 99 03/05/22 06:58 Oxygen Delivery Method 03/05/22 06:58 Temperature 97.7 F 03/06/22 11:30 Pulse Rate 75 03/06/22 11:30 Respiratory Rate 18 03/06/22 11:30 Blood Pressure 126/79 03/06/22 11:30 Pulse Oximetry 98 03/06/22 11:30 Oxygen Delivery Method 03/06/22 11:30 <Austin Blanco MD - Last Filed: 03/07/22 10:28> MDM - GI Bleed MDM Narrative Medical decision making narrative: Differential diagnosis including diverticular bleed, polyps, malignancy. More likely with his history of gastric bypass this is related to his anastomosis or gastric bleeding. Will give 80 mg of IV Protonix x1, I do recommend a CT scan because of his prior gastric surgery history. Basic labs including an INR. Stool rectal exam is Hemoccult positive. Will pass along care to my partner Dr. Hopkins. <Yaquelin Sauceda MD - Last Filed: 03/05/22 08:12> Medical Records Attestation: I reviewed the patient's medical records. <Yaquelin Sauceda MD - Last Filed: 03/05/22 08:12> Medical records narrative: Prior hospitalization for ventral hernia repair from last year. Outpatient labs from earlier this year from primary care team. <Yaquelin Sauceda MD - Last Filed: 03/05/22 08:12> Lab Data Attestation: I reviewed the patient's lab results. <Katlin Guthrie MD - Last Filed: 03/05/22 16:56> Labs: Lab Results 03/05/22 03/05/22 03/05/22 Range/Units 07:52 07:52 07:52 WBC 10.94 (4.50-11.00) K/uL RBC 3.19 L (4.30-5.90) m/uL Hgb 9.5 L (13.5-17.5) gm/dL Hct 29.5 L (37.0-53.0) % MCV 93 (80-100) fL MCH 30 (26-34) pg MCHC 32 (32-36) gm/dL RDW Coeff of Pedro 13.6 (11.5-15.5) % Plt Count 313 (140-440) K/uL Neut % (Auto) 67.2 (42.0-72.0) % Lymph % (Auto) 21.8 (20-44) % [place] % (Auto) 9.8 (0.0-11.0) % Eos % (Auto) 0.1 (0.0-7.0) % Baso % (Auto) 0.5 (0.0-3.0) % Neut # (Auto) 7.36 H (1.7-7.0) K/uL Lymph # (Auto) 2.38 (0.90-2.90) K/uL [place]ro # (Auto) 1.10 H (0.00-0.90) K/UL Eos # (Auto) 0.01 (0.00-0.50) K/uL Baso # (Auto) 0.05 (0.00-0.30) K/uL Abs Immat Gran (auto) 0.07 (0.00-0.30) K/uL Imm/Tot Granulo (auto) 0.6 % INR 1.08 (0.91-1.10) Sodium 133 L (135-149) mmol/L Potassium 3.7 (3.6-5.1) mmol/L Chloride 104 (96-114) mmol/L Carbon Dioxide 24 (20-32) mmol/L BUN 26 (7-30) mg/dL Creatinine 1.1 (0.5-1.5) mg/dL Estimated Creat Clear 55.27 Estimated GFR 70 ml/min Glucose 147 H (60-115) mg/dL Calcium 8.0 L (8.4-10.6) mg/dL Total Bilirubin 0.4 (0.1-1.5) mg/dL AST 28 (12-35) U/L ALT 23 (4-50) U/L Alkaline Phosphatase 110 (40-150) U/L C-Reactive Protein 1.0 (0.5-1.0) mg/dL Total Protein 5.6 L (6.0-8.3) g/dL Albumin 2.8 L (3.3-5.0) g/dL Lipase 22 L (23-300) U/L SARS-CoV-2 (PCR) (Negative) Blood Type Antibody Screen 03/05/22 03/05/22 03/05/22 Range/Units 07:52 15:50 19:11 WBC (4.50-11.00) K/uL RBC (4.30-5.90) m/uL Hgb 9.0 L (13.5-17.5) gm/dL Hct (37.0-53.0) % MCV (80-100) fL MCH (26-34) pg MCHC (32-36) gm/dL RDW Coeff of Pedro (11.5-15.5) % Plt Count (140-440) K/uL Neut % (Auto) (42.0-72.0) % Lymph % (Auto) (20-44) % [place] % (Auto) (0.0-11.0) % Eos % (Auto) (0.0-7.0) % Baso % (Auto) (0.0-3.0) % Neut # (Auto) (1.7-7.0) K/uL Lymph # (Auto) (0.90-2.90) K/uL [place] # (Auto) (0.00-0.90) K/UL Eos # (Auto) (0.00-0.50) K/uL Baso # (Auto) (0.00-0.30) K/uL Abs Immat Gran (auto) (0.00-0.30) K/uL Imm/Tot Granulo (auto) % INR (0.91-1.10) Sodium (135-149) mmol/L Potassium (3.6-5.1) mmol/L Chloride (96-114) mmol/L Carbon Dioxide (20-32) mmol/L BUN (7-30) mg/dL Creatinine (0.5-1.5) mg/dL Estimated Creat Clear Estimated GFR ml/min Glucose (60-115) mg/dL Calcium (8.4-10.6) mg/dL Total Bilirubin (0.1-1.5) mg/dL AST (12-35) U/L ALT (4-50) U/L Alkaline Phosphatase (40-150) U/L C-Reactive Protein (0.5-1.0) mg/dL Total Protein (6.0-8.3) g/dL Albumin (3.3-5.0) g/dL Lipase (23-300) U/L SARS-CoV-2 (PCR) Negative SARS-CoV-2 (Negative) Blood Type O Positive Antibody Screen NEGATIVE 03/05/22 03/06/22 Range/Units 20:50 04:05 WBC (4.50-11.00) K/uL RBC (4.30-5.90) m/uL Hgb 9.2 L 8.7 L (13.5-17.5) gm/dL Hct (37.0-53.0) % MCV (80-100) fL MCH (26-34) pg MCHC (32-36) gm/dL RDW Coeff of Pedro (11.5-15.5) % Plt Count (140-440) K/uL Neut % (Auto) (42.0-72.0) % Lymph % (Auto) (20-44) % [place] % (Auto) (0.0-11.0) % Eos % (Auto) (0.0-7.0) % Baso % (Auto) (0.0-3.0) % Neut # (Auto) (1.7-7.0) K/uL Lymph # (Auto) (0.90-2.90) K/uL [place] # (Auto) (0.00-0.90) K/UL Eos # (Auto) (0.00-0.50) K/uL Baso # (Auto) (0.00-0.30) K/uL Abs Immat Gran (auto) (0.00-0.30) K/uL Imm/Tot Granulo (auto) % INR (0.91-1.10) Sodium (135-149) mmol/L Potassium (3.6-5.1) mmol/L Chloride (96-114) mmol/L Carbon Dioxide (20-32) mmol/L BUN (7-30) mg/dL Creatinine (0.5-1.5) mg/dL Estimated Creat Clear Estimated GFR ml/min Glucose (60-115) mg/dL Calcium (8.4-10.6) mg/dL Total Bilirubin (0.1-1.5) mg/dL AST (12-35) U/L ALT (4-50) U/L Alkaline Phosphatase (40-150) U/L C-Reactive Protein (0.5-1.0) mg/dL Total Protein (6.0-8.3) g/dL Albumin (3.3-5.0) g/dL Lipase (23-300) U/L SARS-CoV-2 (PCR) (Negative) Blood Type Antibody Screen <Yaquelin Sauceda MD - Last Filed: 03/05/22 08:12> Lab Results 03/05/22 03/05/22 03/05/22 Range/Units 07:52 07:52 07:52 WBC 10.94 (4.50-11.00) K/uL RBC 3.19 L (4.30-5.90) m/uL Hgb 9.5 L (13.5-17.5) gm/dL Hct 29.5 L (37.0-53.0) % MCV 93 (80-100) fL MCH 30 (26-34) pg MCHC 32 (32-36) gm/dL RDW Coeff of Pedro 13.6 (11.5-15.5) % Plt Count 313 (140-440) K/uL Neut % (Auto) 67.2 (42.0-72.0) % Lymph % (Auto) 21.8 (20-44) % [place] % (Auto) 9.8 (0.0-11.0) % Eos % (Auto) 0.1 (0.0-7.0) % Baso % (Auto) 0.5 (0.0-3.0) % Neut # (Auto) 7.36 H (1.7-7.0) K/uL Lymph # (Auto) 2.38 (0.90-2.90) K/uL [place] # (Auto) 1.10 H (0.00-0.90) K/UL Eos # (Auto) 0.01 (0.00-0.50) K/uL Baso # (Auto) 0.05 (0.00-0.30) K/uL Abs Immat Gran (auto) 0.07 (0.00-0.30) K/uL Imm/Tot Granulo (auto) 0.6 % INR 1.08 (0.91-1.10) Sodium 133 L (135-149) mmol/L Potassium 3.7 (3.6-5.1) mmol/L Chloride 104 (96-114) mmol/L Carbon Dioxide 24 (20-32) mmol/L BUN 26 (7-30) mg/dL Creatinine 1.1 (0.5-1.5) mg/dL Estimated Creat Clear 55.27 Estimated GFR 70 ml/min Glucose 147 H (60-115) mg/dL Calcium 8.0 L (8.4-10.6) mg/dL Total Bilirubin 0.4 (0.1-1.5) mg/dL AST 28 (12-35) U/L ALT 23 (4-50) U/L Alkaline Phosphatase 110 (40-150) U/L C-Reactive Protein 1.0 (0.5-1.0) mg/dL Total Protein 5.6 L (6.0-8.3) g/dL Albumin 2.8 L (3.3-5.0) g/dL Lipase 22 L (23-300) U/L SARS-CoV-2 (PCR) (Negative) Blood Type Antibody Screen 03/05/22 03/05/22 03/05/22 Range/Units 07:52 15:50 19:11 WBC (4.50-11.00) K/uL RBC (4.30-5.90) m/uL Hgb 9.0 L (13.5-17.5) gm/dL Hct (37.0-53.0) % MCV (80-100) fL MCH (26-34) pg MCHC (32-36) gm/dL RDW Coeff of Pedro (11.5-15.5) % Plt Count (140-440) K/uL Neut % (Auto) (42.0-72.0) % Lymph % (Auto) (20-44) % [place] % (Auto) (0.0-11.0) % Eos % (Auto) (0.0-7.0) % Baso % (Auto) (0.0-3.0) % Neut # (Auto) (1.7-7.0) K/uL Lymph # (Auto) (0.90-2.90) K/uL [place] # (Auto) (0.00-0.90) K/UL Eos # (Auto) (0.00-0.50) K/uL Baso # (Auto) (0.00-0.30) K/uL Abs Immat Gran (auto) (0.00-0.30) K/uL Imm/Tot Granulo (auto) % INR (0.91-1.10) Sodium (135-149) mmol/L Potassium (3.6-5.1) mmol/L Chloride (96-114) mmol/L Carbon Dioxide (20-32) mmol/L BUN (7-30) mg/dL Creatinine (0.5-1.5) mg/dL Estimated Creat Clear Estimated GFR ml/min Glucose (60-115) mg/dL Calcium (8.4-10.6) mg/dL Total Bilirubin (0.1-1.5) mg/dL AST (12-35) U/L ALT (4-50) U/L Alkaline Phosphatase (40-150) U/L C-Reactive Protein (0.5-1.0) mg/dL Total Protein (6.0-8.3) g/dL Albumin (3.3-5.0) g/dL Lipase (23-300) U/L SARS-CoV-2 (PCR) Negative SARS-CoV-2 (Negative) Blood Type O Positive Antibody Screen NEGATIVE 03/05/22 03/06/22 Range/Units 20:50 04:05 WBC (4.50-11.00) K/uL RBC (4.30-5.90) m/uL Hgb 9.2 L 8.7 L (13.5-17.5) gm/dL Hct (37.0-53.0) % MCV (80-100) fL MCH (26-34) pg MCHC (32-36) gm/dL RDW Coeff of Pedro (11.5-15.5) % Plt Count (140-440) K/uL Neut % (Auto) (42.0-72.0) % Lymph % (Auto) (20-44) % [place] % (Auto) (0.0-11.0) % Eos % (Auto) (0.0-7.0) % Baso % (Auto) (0.0-3.0) % Neut # (Auto) (1.7-7.0) K/uL Lymph # (Auto) (0.90-2.90) K/uL [place] # (Auto) (0.00-0.90) K/UL Eos # (Auto) (0.00-0.50) K/uL Baso # (Auto) (0.00-0.30) K/uL Abs Immat Gran (auto) (0.00-0.30) K/uL Imm/Tot Granulo (auto) % INR (0.91-1.10) Sodium (135-149) mmol/L Potassium (3.6-5.1) mmol/L Chloride (96-114) mmol/L Carbon Dioxide (20-32) mmol/L BUN (7-30) mg/dL Creatinine (0.5-1.5) mg/dL Estimated Creat Clear Estimated GFR ml/min Glucose (60-115) mg/dL Calcium (8.4-10.6) mg/dL Total Bilirubin (0.1-1.5) mg/dL AST (12-35) U/L ALT (4-50) U/L Alkaline Phosphatase (40-150) U/L C-Reactive Protein (0.5-1.0) mg/dL Total Protein (6.0-8.3) g/dL Albumin (3.3-5.0) g/dL Lipase (23-300) U/L SARS-CoV-2 (PCR) (Negative) Blood Type Antibody Screen <Katlin Guthrie MD - Last Filed: 03/05/22 16:56> Lab Results 03/05/22 03/05/22 03/05/22 Range/Units 07:52 07:52 07:52 WBC 10.94 (4.50-11.00) K/uL RBC 3.19 L (4.30-5.90) m/uL Hgb 9.5 L (13.5-17.5) gm/dL Hct 29.5 L (37.0-53.0) % MCV 93 (80-100) fL MCH 30 (26-34) pg MCHC 32 (32-36) gm/dL RDW Coeff of Pedro 13.6 (11.5-15.5) % Plt Count 313 (140-440) K/uL Neut % (Auto) 67.2 (42.0-72.0) % Lymph % (Auto) 21.8 (20-44) % [place] % (Auto) 9.8 (0.0-11.0) % Eos % (Auto) 0.1 (0.0-7.0) % Baso % (Auto) 0.5 (0.0-3.0) % Neut # (Auto) 7.36 H (1.7-7.0) K/uL Lymph # (Auto) 2.38 (0.90-2.90) K/uL [place] # (Auto) 1.10 H (0.00-0.90) K/UL Eos # (Auto) 0.01 (0.00-0.50) K/uL Baso # (Auto) 0.05 (0.00-0.30) K/uL Abs Immat Gran (auto) 0.07 (0.00-0.30) K/uL Imm/Tot Granulo (auto) 0.6 % INR 1.08 (0.91-1.10) Sodium 133 L (135-149) mmol/L Potassium 3.7 (3.6-5.1) mmol/L Chloride 104 (96-114) mmol/L Carbon Dioxide 24 (20-32) mmol/L BUN 26 (7-30) mg/dL Creatinine 1.1 (0.5-1.5) mg/dL Estimated Creat Clear 55.27 Estimated GFR 70 ml/min Glucose 147 H (60-115) mg/dL Calcium 8.0 L (8.4-10.6) mg/dL Total Bilirubin 0.4 (0.1-1.5) mg/dL AST 28 (12-35) U/L ALT 23 (4-50) U/L Alkaline Phosphatase 110 (40-150) U/L C-Reactive Protein 1.0 (0.5-1.0) mg/dL Total Protein 5.6 L (6.0-8.3) g/dL Albumin 2.8 L (3.3-5.0) g/dL Lipase 22 L (23-300) U/L SARS-CoV-2 (PCR) (Negative) Blood Type Antibody Screen 03/05/22 03/05/22 03/05/22 Range/Units 07:52 15:50 19:11 WBC (4.50-11.00) K/uL RBC (4.30-5.90) m/uL Hgb 9.0 L (13.5-17.5) gm/dL Hct (37.0-53.0) % MCV (80-100) fL MCH (26-34) pg MCHC (32-36) gm/dL RDW Coeff of Pedro (11.5-15.5) % Plt Count (140-440) K/uL Neut % (Auto) (42.0-72.0) % Lymph % (Auto) (20-44) % Taliaferro % (Auto) (0.0-11.0) % Eos % (Auto) (0.0-7.0) % Baso % (Auto) (0.0-3.0) % Neut # (Auto) (1.7-7.0) K/uL Lymph # (Auto) (0.90-2.90) K/uL Taliaferro # (Auto) (0.00-0.90) K/UL Eos # (Auto) (0.00-0.50) K/uL Baso # (Auto) (0.00-0.30) K/uL Abs Immat Gran (auto) (0.00-0.30) K/uL Imm/Tot Granulo (auto) % INR (0.91-1.10) Sodium (135-149) mmol/L Potassium (3.6-5.1) mmol/L Chloride (96-114) mmol/L Carbon Dioxide (20-32) mmol/L BUN (7-30) mg/dL Creatinine (0.5-1.5) mg/dL Estimated Creat Clear Estimated GFR ml/min Glucose (60-115) mg/dL Calcium (8.4-10.6) mg/dL Total Bilirubin (0.1-1.5) mg/dL AST (12-35) U/L ALT (4-50) U/L Alkaline Phosphatase (40-150) U/L C-Reactive Protein (0.5-1.0) mg/dL Total Protein (6.0-8.3) g/dL Albumin (3.3-5.0) g/dL Lipase (23-300) U/L SARS-CoV-2 (PCR) Negative SARS-CoV-2 (Negative) Blood Type O Positive Antibody Screen NEGATIVE 03/05/22 03/06/22 Range/Units 20:50 04:05 WBC (4.50-11.00) K/uL RBC (4.30-5.90) m/uL Hgb 9.2 L 8.7 L (13.5-17.5) gm/dL Hct (37.0-53.0) % MCV (80-100) fL MCH (26-34) pg MCHC (32-36) gm/dL RDW Coeff of Pedro (11.5-15.5) % Plt Count (140-440) K/uL Neut % (Auto) (42.0-72.0) % Lymph % (Auto) (20-44) % Taliaferro % (Auto) (0.0-11.0) % Eos % (Auto) (0.0-7.0) % Baso % (Auto) (0.0-3.0) % Neut # (Auto) (1.7-7.0) K/uL Lymph # (Auto) (0.90-2.90) K/uL Taliaferro # (Auto) (0.00-0.90) K/UL Eos # (Auto) (0.00-0.50) K/uL Baso # (Auto) (0.00-0.30) K/uL Abs Immat Gran (auto) (0.00-0.30) K/uL Imm/Tot Granulo (auto) % INR (0.91-1.10) Sodium (135-149) mmol/L Potassium (3.6-5.1) mmol/L Chloride (96-114) mmol/L Carbon Dioxide (20-32) mmol/L BUN (7-30) mg/dL Creatinine (0.5-1.5) mg/dL Estimated Creat Clear Estimated GFR ml/min Glucose (60-115) mg/dL Calcium (8.4-10.6) mg/dL Total Bilirubin (0.1-1.5) mg/dL AST (12-35) U/L ALT (4-50) U/L Alkaline Phosphatase (40-150) U/L C-Reactive Protein (0.5-1.0) mg/dL Total Protein (6.0-8.3) g/dL Albumin (3.3-5.0) g/dL Lipase (23-300) U/L SARS-CoV-2 (PCR) (Negative) Blood Type Antibody Screen <Austin Blanco MD - Last Filed: 03/07/22 10:28> Imaging Data CT scan - abdomen: Attestation: I have reviewed the pertinent imaging results. <Katlin Meza MD - Last Filed: 03/05/22 16:56> Radiologist's impression: Patient: KURT BOX Facility:?[facility] Patient ID:?[id number] Site Patient ID:?[id number]. Site :?[id number] Study:?CT Abdomen/Pelvis 99CC ISOVUE 370-03/05/2022 9:16:14 AM Ordering Physician:Wayne Jamison Final Report: INDICATION: GI bleed. History of gastric bypass. COMPARISON: August 17, 2021 TECHNIQUE: CT examination of the abdomen and pelvis was performed following the uneventful intravenous administration of 95 cc of Isovue 370.. Thin section axial images were obtained from the lung bases through the pubic symphysis. Oral contrast was not administered. TECHNICAL NOTE: The study was performed as a single phase study. The examination was not performed as a triple phase GI bleeding protocol study Please note that all CT scans at this facility use dose modulation, iterative reconstruction, and/or weight-based dosing when appropriate to reduce radiation dose to as low as reasonably achievable. FINDINGS: LUNG BASES: Linear opacities at the lung bases likely related to atelectasis. Moderate to large hiatal hernia.Heart size normal and the lung bases. LIVER/BILIARY SYSTEM:The liver is normal in size and configuration. There is no focal mass and there is no intra- or extra hepatic biliary ductal dilatation.Distended but otherwise unremarkable appearing gallbladder. ADRENALS: Normal KIDNEYS, URETERS and BLADDER:The kidneys appear normal. No visible mass, calculus or hydronephrosis. The ureters and bladder as visualized appear normal. SPLEEN:Absent PANCREAS: Pancreas is not visualized. This is usually due to profound fatty infiltration RETROPERITONEUM and MESENTERY: There is no mass, adenopathy or aortic aneurysm. Atherosclerotic vascular calcifications GASTROINTESTINAL SYSTEM: There are findings of a gastric bypass. Marked edema and wall thickening of all of the components of the gastric bypass at and proximal to the stomach. No definite mechanical obstruction. Findings are probably due to a significant gastritis pattern. There is no free air or intramural air identified. Some hyperdense material is identified within the lumen which might be hemorrhage care PELVIS: Enlarged prostate. OSSEOUS STRUCTURES and ABDOMINAL WALL: There is an age-appropriate appearance of the osseous structures.No significant abdominal wall defect. OTHER: No free fluid or free air. IMPRESSION: 1. Findings of gastric bypass. Marked edema and wall thickening of the wall of the gastric components of the gastric bypass. No definite mechanical obstruction, intramural air or free-air. The findings are likely due to significant gastritis. Some hyperdense material within the stomach could be related to hemorrhage. 2. Other incidental nonacute appearing findings as above Please note that all CT scans at this facility use dose modulation, iterative reconstruction, and/or weight-based dosing when appropriate to reduce radiation dose to as low as reasonably achievable. Dictated by Rj Morris MD @ 03/05/2022 9:37:32 AM (Electronic Signature) <Katlin Guthrie MD - Last Filed: 03/05/22 16:56> Discharge Plan Discharge Clinical Impression: Acute upper gastrointestinal bleeding, History of Falguni-en-Y gastric bypass, Anemia <Yaquelin Sauceda MD - Last Filed: 03/05/22 08:12> Patient Disposition: Admitted As Inpatient <Yaquelin Sauceda MD - Last Filed: 03/05/22 08:12> Condition: Stable <Yaquelin Sauceda MD - Last Filed: 03/05/22 08:12> Activity Level: No Restrictions <Yaquelin Sauceda MD - Last Filed: 03/05/22 08:12> No Restrictions <Katlin Guthrie MD - Last Filed: 03/05/22 16:56> No Restrictions <Austin Blanco MD - Last Filed: 03/07/22 10:28> Discharge Diet: Regular <Yaquelin Sauceda MD - Last Filed: 03/05/22 08:12> Regular <Katlin Guthrie MD - Last Filed: 03/05/22 16:56> Regular <Austin Blanco MD - Last Filed: 03/07/22 10:28>
[2022-03-05] MEDS: PANTOPRAZOLE SODIUM 40 MG INJ 80 MG IVP (08:02)
[2022-03-05 08:14] LABS: Basophils Absolute Auto 0.05 K/uL (0.00-0.30); Basophils Percent Auto 0.5 % (0.0-3.0); Eosinophils Absolute Auto 0.01 K/uL (0.00-0.50); Eosinophils Percent Auto 0.1 % (0.0-7.0); Hematocrit 29.5 % (37.0-53.0); Hemoglobin* 9.5 gm/dL (13.5-17.5); Immature Granulocytes Abs Auto 0.07 K/uL (0.00-0.30); Immature Granulocytes Pct Auto 0.6 %; Lymphocytes Absolute Auto 2.38 K/uL (0.90-2.90); Lymphocytes Percent Auto 21.8 % (20-44); Mean Corpuscular HGB Conc 32 gm/dL (32-36); Mean Corpuscular Hemoglobin 30 pg (26-34); Mean Corpuscular Volume 93 fL (80-100); Monocytes Percent Auto 9.8 % (0.0-11.0); Neutrophils Absolute Auto 7.36 K/uL (1.7-7.0); Neutrophils Percent Auto 67.2 % (42.0-72.0); Platelet Count* 313 K/uL (140-440); RDW Coefficient of Variation % 13.6 % (11.5-15.5); Red Blood Count 3.19 m/uL (4.30-5.90); White Blood Count* 10.94 K/uL (4.50-11.00)
[2022-03-05 08:21] LABS: Slide Review Reflex No
[2022-03-05 08:24] LABS: Albumin* 2.8 g/dL (3.3-5.0); Chloride* 104 mmol/L (96-114); Sodium* 133 mmol/L (135-149)
[2022-03-05 08:25] LABS: Potassium* 3.7 mmol/L (3.6-5.1)
[2022-03-05 08:26] LABS: Creatinine* 1.1 mg/dL (0.5-1.5); Est. Creatinine Clearance* 55.27; Estimated Glomerular Filt Rate 70 ml/min
[2022-03-05 08:27] LABS: Alanine Aminotransferase* 23 U/L (4-50); Alkaline Phosphatase* 110 U/L (40-150); Aspartate Amino Transferase* 28 U/L (12-35); Bilirubin Total* 0.4 mg/dL (0.1-1.5); Blood Urea Nitrogen* 26 mg/dL (7-30); Carbon Dioxide* 24 mmol/L (20-32); Glucose* 147 mg/dL (60-115); Lipase* 22 U/L (23-300); Total Protein* 5.6 g/dL (6.0-8.3)
[2022-03-05 08:38] LABS: INR 1.08 (0.91-1.10); Prothrombin Time 14.6 Seconds
--- NOTE | 2022-03-05 11:54 | ED.NURSE ---
has had black stools since coming to the ed. no pain.
[2022-03-05] MEDS: LACTATED RINGERS 1000 ML 1,000 ML 125 ML IV ×2 (12:15→21:12)
--- NOTE | 2022-03-05 17:31 | ED.NURSE ---
dr juarez in to see [facility]. no beds at [facility] or [facility].
--- NOTE | 2022-03-05 17:52 | ED.NURSE ---
dr juarez in room aware that no beds are available at [facility].
--- NOTE | 2022-03-05 18:18 | ED.NURSE ---
nevin mata and chacho vega informed of admission.
--- NOTE | 2022-03-05 18:50 | ED.NURSE ---
report was given to lisseth vega. to [facility] 3 via w/c. denies pain.
--- NOTE | 2022-03-05 18:56 | P.IMHP_ITS ---
Hospitalist- H&P: HPI History of Present Illness Date Seen: 03/05/22 Chief complaint: Black stool Narrative: Faith Adames is a 76 year old male admitted through the emergency department with melanotic stool starting at 12:30 a.m., after midnight this morning. Patient noted that he had a small amount of bright red blood in his stool yesterday. He is known to have internal hemorrhoids from a colonoscopy earlier this year and he assumed that was the cause of his bright red blood. He has had no subsequent bright red bleeding. Just after midnight he had a melanotic stool. Because that he came to the emergency department. He does report last couple days he has had some fatigue. He has not had syncope or chest pain or dyspnea. No fever. No abdominal pain. No previous history of GI bleeding. He does take aspirin but no other anticoagulation. Previous history of Falguni-en-Y gastric bypass almost 5 years ago. 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 Subsequently has done well with weight loss. He reports ongoing significant weight loss even this year. He came to our emergency room earlier this morning. Attempts to transfer him to tertiary care have so far been unsuccessful. Because this he will be admitted here for monitoring and, if possible, upper endoscopy. Review of Systems Narrative: Prior to the last day he reports he has been generally feeling well. No other recent illness or injury. 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 His and his son Charanjit are healthcare power of staff attorney. Code status is full. Quit smoking 32 years ago. Occasional use of alcohol. Smoking Status: Never smoker How often do you have a drink containing alcohol: monthly or less AUDIT-C Alcohol total score: 1 Non-prescribed substance use: denies use Meds Home Medications and Allergies Home Medications Medication Instructions Recorded Confirmed Type aspirin 81 mg tablet,delayed 81 mg PO DAILY 01/04/22 03/05/22 History release calcium citrate zinc 1 tab PO BID 01/04/22 03/05/22 History cholecalciferol (vitamin D3) 125 120 mcg PO QDAY 01/04/22 03/05/22 History mcg (5,000 unit) tablet cyanocobalamin (vitamin B-12) 1,000 mcg PO .3 x weekly 01/04/22 03/05/22 History 1,000 mcg tablet ferrous sulfate 325 mg (65 mg 60 mg PO QDAY 01/04/22 03/05/22 History iron) tablet (FeroSul) multivitamin 1 tab PO BID 01/04/22 03/05/22 History potassium citrate 5 mEq (540 mg) 5 meq PO TID 01/04/22 03/05/22 History tablet,extended release Allergies Allergy/AdvReac Type Severity Reaction Status Date / Time cat dander Allergy Mild Congestion, Verified 01/09/22 14:15 watery eyes lisinopril AdvReac Mild Cough Verified 01/09/22 14:15 Exam Narrative: Exam Narrative: He is pleasant, alert and appears in no distress. He gives his own history. Eyes normal. Sclerae nonicteric. Oropharynx with small airway. Neck is supple without mass or adenopathy. Respirations are clear to auscultation. Cardiovascular: S1, S2, regular rate and rhythm. No murmur gallop or rub. Abdomen: Bowel sounds active. Abdomen is soft without tenderness or mass. External genitalia normal. Extremities with intact pulses and intact sensation. There is no edema. He moves all 4 extremities well. Const: Vital Signs, click to edit/add: Vital Signs - 24 hr 03/05/22 06:58 03/05/22 08:18 03/05/22 09:15 Temperature 98.2 F Pulse Rate Pulse Rate [Pulse Oximeter] 100 90 84 Respiratory Rate 16 16 18 Blood Pressure Blood Pressure [Ri ght Upper Arm] 135/83 121/70 126/71 Pulse Oximetry 99 99 100 Oxygen Delivery Me thod Room Air Room Air Room Air 03/05/22 09:13 03/05/22 09:14 03/05/22 09:15 Temperature Pulse Rate 88 86 84 Pulse Rate [Pulse Oximeter] Respiratory Rate Blood Pressure 126/71 Blood Pressure [Ri ght Upper Arm] Pulse Oximetry 100 97 98 Oxygen Delivery Me thod 03/05/22 11:53 03/05/22 11:54 03/05/22 12:00 Temperature Pulse Rate 84 84 82 Pulse Rate [Pulse Oximeter] Respiratory Rate Blood Pressure 137/76 Blood Pressure [Ri ght Upper Arm] Pulse Oximetry 99 99 99 Oxygen Delivery Me thod 03/05/22 12:02 03/05/22 12:15 03/05/22 12:30 Temperature Pulse Rate 84 77 77 Pulse Rate [Pulse Oximeter] Respiratory Rate Blood Pressure 103/83 Blood Pressure [Ri ght Upper Arm] Pulse Oximetry 99 99 98 Oxygen Delivery Me thod 03/05/22 12:31 03/05/22 12:45 03/05/22 13:00 Temperature Pulse Rate 77 81 80 Pulse Rate [Pulse Oximeter] Respiratory Rate Blood Pressure 117/87 Blood Pressure [Ri ght Upper Arm] Pulse Oximetry 98 99 98 Oxygen Delivery Me thod 03/05/22 13:01 03/05/22 13:15 03/05/22 13:30 Temperature Pulse Rate 81 78 79 Pulse Rate [Pulse Oximeter] Respiratory Rate Blood Pressure 126/72 Blood Pressure [Ri ght Upper Arm] Pulse Oximetry 99 99 99 Oxygen Delivery Me thod 03/05/22 13:31 03/05/22 13:45 03/05/22 14:00 Temperature Pulse Rate 81 79 78 Pulse Rate [Pulse Oximeter] Respiratory Rate Blood Pressure 129/74 Blood Pressure [Ri ght Upper Arm] Pulse Oximetry 98 98 98 Oxygen Delivery Me thod 03/05/22 14:01 03/05/22 14:15 03/05/22 14:30 Temperature Pulse Rate 78 79 81 Pulse Rate [Pulse Oximeter] Respiratory Rate Blood Pressure 132/72 Blood Pressure [Ri ght Upper Arm] Pulse Oximetry 96 98 97 Oxygen Delivery Me thod 03/05/22 14:32 03/05/22 14:45 03/05/22 15:00 Temperature Pulse Rate 85 75 80 Pulse Rate [Pulse Oximeter] Respiratory Rate Blood Pressure 115/76 Blood Pressure [Ri ght Upper Arm] Pulse Oximetry 98 99 99 Oxygen Delivery Me thod 03/05/22 15:01 03/05/22 15:15 03/05/22 15:30 Temperature Pulse Rate 79 84 85 Pulse Rate [Pulse Oximeter] Respiratory Rate Blood Pressure 135/81 Blood Pressure [Ri ght Upper Arm] Pulse Oximetry 99 98 98 Oxygen Delivery Me thod 03/05/22 15:31 03/05/22 15:45 Temperature Pulse Rate 84 84 Pulse Rate [Pulse Oximeter] Respiratory Rate Blood Pressure 127/78 Blood Pressure [Ri ght Upper Arm] Pulse Oximetry 98 98 Oxygen Delivery Me od Hospitalist - H&P: Result Labs Labs: Short CBC 03/05/22 03/05/22 Range/Units 07:52 15:50 WBC 10.94 (4.50-11.00) K/uL Hgb 9.5 L 9.0 L (13.5-17.5) gm/dL Hct 29.5 L (37.0-53.0) % Plt Count 313 (140-440) K/uL BMP 03/05/22 07:52 Sodium 133 L Potassium 3.7 Chloride 104 Carbon Dioxide 24 BUN 26 Creatinine 1.1 Glucose 147 H Calcium 8.0 L Liver Function 03/05/22 Range/Units 07:52 Total Bilirubin 0.4 (0.1-1.5) mg/dL AST 28 (12-35) U/L ALT 23 (4-50) U/L Alkaline Phosphatase 110 (40-150) U/L Albumin 2.8 L (3.3-5.0) g/dL Assessment and Plan Assessment and plan (1) Acute upper gastrointestinal bleeding: Problem comment: Likely upper GI bleeding. CT scan shows thickening of the gastric wall. Small amount of bright red blood per rectum possibly indicative of a lower GI source of bleeding. No urgent need to evaluate this with recent colonoscopy findings. Status: Acute (2) Anemia: Problem comment: Due to GI bleeding. Monitor vitals and hemoglobin and evaluate source. Status: Acute (3) Essential hypertension: Problem comment: Hold antihypertensives for now Status: Inactive (4) History of Falguni-en-Y gastric bypass: Problem comment: 04/2017, followed by [facility] (in past). Complicates evaluation and treatment of upper GI bleeding. Status: Acute (5) Type 2 diabetes mellitus: Problem comment: Diet controlled since gastric bypass 2018. Hemoglobin A1c earlier this year was 6.2 Status: Inactive (6) Obstructive sleep apnea syndrome: Problem comment: on CPAP, seen by [facility] Status: Inactive (7) Obesity with body mass index greater than 30: Status: Inactive (8) Adenomatous polyp of colon: Problem comment: by outside ([facility]), done again [facility] 12/11/21 with 8 tubular adenomas removed, repeat in 3Y Status: Inactive Plan Pending availability of tertiary care will admit here for further monitoring and if possible arrange endoscopies here. Continue to look for transfer options as well. Total time spent today is 80 minutes, 50 minutes in coordination of care and discussing ongoing evaluation management of bleeding in the context of Falguni-en-Y gastric bypass
[2022-03-05 20:08] LABS: SARS PCR* Negative SARS-CoV-2 (Negative)
[2022-03-05 20:59] LABS: Hemoglobin* 9.2 gm/dL (13.5-17.5)
[2022-03-05] MEDS: MULTIVITAMIN/MINERALS 1 TABLET 1 TAB PO (21:12)
[2022-03-05] MEDS: PANTOPRAZOLE SODIUM 40 MG INJ IVP (21:12)
[2022-03-05] MEDS: ATORVASTATIN 10 MG TABLET 20 MG PO (21:12)
[2022-03-05] MEDS: TRAZODONE HCL 50 MG TABLET 100 MG PO (23:23)
[2022-03-06] MEDS: LACTATED RINGERS 1000 ML 1,000 ML 125 ML IV ×2 (01:02→08:50)
[2022-03-06 03:00] VITALS: BP 118/77; PULSE 66; RESP 18; TEMP 36.8; O2SAT 99
[2022-03-06 04:24] LABS: Hemoglobin* 8.7 gm/dL (13.5-17.5)
--- NOTE | 2022-03-06 07:38 | PC.NURSE ---
Shift note: No c/o abdominal pain, no stools since admission to the floor. Pt stated he is feeling better overall, denies lightheadedness and dizziness, he is independent in the room.
[2022-03-06 08:00] VITALS: BP 123/68; PULSE 64; PULSE 66; RESP 18; TEMP 36.4; O2SAT 100
[2022-03-06] MEDS: PANTOPRAZOLE SODIUM 40 MG INJ IVP (08:50)
[2022-03-06 11:30] VITALS: BP 126/79; PULSE 75; RESP 18; TEMP 36.5; O2SAT 98
--- NOTE | 2022-03-06 14:04 | PM.DS1 ---
DS: Providers Provider Date Seen: 03/06/22 Date of admission: 03/05/22 18:46 Primary care physician: Ai Clarke MD Admitting Clinician: Eladio Plummer MD Consults: Mirela Navarro MD Attending Physician on discharge: Eladio Plummer MD Date of Discharge: 03/06/22 DS: Diagnosis Discharge Diagnosis (1) Acute upper gastrointestinal bleeding: Status: Acute Problem details: Upper endoscopy showed superficial ulcers at the gastro jejunal junction without active bleeding (2) History of Falguni-en-Y gastric bypass: Status: Acute Problem details: 04/2017, followed by Dr. Santos Krishna [facility] (in past). Recommend follow-up with [place] [facility] to determine if repeat endoscopy is needed and ongoing therapy (3) Anemia: Status: Acute Problem details: Stable anemia around hemoglobin of 9. DS: Summary Hospital Course Hospital Course: 76-year-old male admitted to the hospital with melanotic stools. Hemoglobin was 12.3 2 months ago and dropped to around 9. He is observed in the hospital for serial hemoglobin monitoring, vital sign monitoring and monitoring for evidence of bleeding. This evaluation was all quite normal. He had no subsequent melanotic stools during his hospital stay. Hemoglobin remained stable around 9. He was eventually able to undergo upper endoscopy which showed superficial ulcers at the gastro-jejunal anastomosis. Aspirin therapy was held and PPI and sucralfate were started. Status at Discharge Functional status at discharge: independent ambulation Overall status at discharge: patient is back to baseline Time Spent with Patient Time attestation: Total time spent providing and/or coordinating discharge services: Time spent: Greater than 30 minutes Exam Narrative: Exam Narrative: He is alert and appears in no distress. Breathing is unlabored. Const: Vital Signs, click to edit/add: Vital Signs - 24 hr 03/05/22 14:15 03/05/22 14:30 03/05/22 14:32 Temperature Pulse Rate 79 81 85 Pulse Rate [Right Radial] Respiratory Rate Blood Pressure 115/76 Blood Pressure [Ri ght Arm] Pulse Oximetry 98 97 98 Oxygen Delivery Me thod 03/05/22 14:45 03/05/22 15:00 03/05/22 15:01 Temperature Pulse Rate 75 80 79 Pulse Rate [Right Radial] Respiratory Rate Blood Pressure 135/81 Blood Pressure [Ri ght Arm] Pulse Oximetry 99 99 99 Oxygen Delivery Me thod 03/05/22 15:15 03/05/22 15:30 03/05/22 15:31 Temperature Pulse Rate 84 85 84 Pulse Rate [Right Radial] Respiratory Rate Blood Pressure 127/78 Blood Pressure [Ri ght Arm] Pulse Oximetry 98 98 98 Oxygen Delivery Me thod 03/05/22 15:45 03/05/22 19:03 03/05/22 20:14 Temperature 98.2 F 98.2 F Pulse Rate 84 Pulse Rate [Right Radial] 78 78 Respiratory Rate 18 20 Blood Pressure Blood Pressure [Ri ght Arm] 144/87 H 144/87 H Pulse Oximetry 98 98 99 Oxygen Delivery Me thod Room Air Room Air 03/05/22 23:00 03/05/22 23:00 03/06/22 03:00 Temperature 98.5 F 98.2 F Pulse Rate Pulse Rate [Right Radial] 71 66 Respiratory Rate 18 18 Blood Pressure Blood Pressure [Ri ght Arm] 118/97 H 118/77 Pulse Oximetry 99 99 99 Oxygen Delivery Me thod Room Air Room Air Room Air 03/06/22 08:00 03/06/22 08:00 03/06/22 08:00 Temperature 97.6 F Pulse Rate Pulse Rate [Right Radial] 66 64 Respiratory Rate 18 18 18 Blood Pressure Blood Pressure [Ri ght Arm] 123/68 Pulse Oximetry 100 100 Oxygen Delivery Me thod Room Air Room Air DS: Data Data Completed and Pending Labs on day of discharge: Labs from last 24 hours 03/06/22 03/05/22 03/05/22 04:05 20:50 19:11 Hgb 8.7 L 9.2 L SARS-CoV-2 (PCR) Negative SARS-CoV-2 03/05/22 15:50 Hgb 9.0 L SARS-CoV-2 (PCR) Discharge Plan Discharge Disposition: Home, Self-Care Date of Admission: 03/05/22 18:46 Primary Care Provider: Ai Clarke Condition: Stable Anticipated Discharge Date/Time: 03/06/22 15:00 Discharge Medications: New sucralfate 1 gram tablet 1 g PO ACHS Qty: 120 3RF omeprazole 20 mg tablet,delayed release (DR/EC) 20 mg PO DAILY Qty: 60 2RF atorvastatin 20 mg tablet 20 mg PO QHS Qty: 90 3RF Continued multivitamin Tablet 1 tab PO BID potassium citrate 5 mEq (540 mg) tablet extended release 5 meq PO TID cyanocobalamin (vitamin B-12) 1,000 mcg tablet 1,000 mcg PO .3 x weekly Rx Instructions: Mon, Wed, Fri ferrous sulfate [FeroSul] 325 mg (65 mg iron) tablet 60 mg PO DAILY calcium citrate zinc 1 tab PO BID cholecalciferol (vitamin D3) 125 mcg (5,000 unit) tablet 120 mcg PO DAILY losartan 50 mg tablet 50 mg PO DAILY Qty: 90 3RF atorvastatin 20 mg tablet 20 mg PO HS trazodone 100 mg tablet 100 mg PO HS Discontinued aspirin 81 mg tablet,delayed release (DR/EC) 81 mg PO DAILY Discharge Orders: Discharge Order (Routine); Ordered 03/06/22 Ordered By: Eladio Plummer Activity Level: No Restrictions Discharge Diet: Regular Follow Up Appointments: Ai Clarke MD [Primary Care Provider] - Forms: [facility] Info Instructions
[2022-03-06 14:17] LABS: Hemoglobin* 9.8 gm/dL (13.5-17.5)
--- NOTE | 2022-03-06 15:20 | PC.NURSE ---
VSS AND AFEBRILE. DENIED PAIN OR N/V. PATIENT TOLERATED REGULAR DIET FOLLOWING ENDOSCOPY. DENIED FEELING DIZZY OR LIGHTHEADED. SALINE DC'D. REVIEWED DC INSTRUCTIONS WITH PATIENT AND HIS AND BOTH DENIED QUESTIONS OR CONCERNS. PATIENT DC'D HOME VIA .
== END 2022-03-06 15:01 | disposition home or self-care (01) ==
LOC: ED 18:08 → MEDSURG 20:38
PROVIDERS: Family Medicine; Admitting Provider Family Medicine; Emergency Provider Family Medicine; PCP Internal Medicine; Visit Provider Family Medicine
DX: K92.2 Gastrointestinal hemorrhage, unspecified (principal); D64.9 Anemia, unspecified; Z98.84 Bariatric surgery status; I10 Essential (primary) hypertension; E11.9 Type 2 diabetes mellitus without complications; K92.1 Melena; Z90.81 Acquired absence of spleen; E78.5 Hyperlipidemia, unspecified; Z79.82 Long term (current) use of aspirin; Z86.010 Personal history of colon polyps; Z98.890 Other specified postprocedural states; G47.33 Obstructive sleep apnea (adult) (pediatric); Z68.35 Body mass index [BMI] 35.0-35.9, adult; D12.6 Benign neoplasm of colon, unspecified; E66.9 Obesity, unspecified; Z87.891 Personal history of nicotine dependence
CPT/HCPCS: 36415; 43239; 74177; 80053; 83690; 85018; 85025; 85610; 86140; 86850; 86900; 86901; 87635; 88305; 96361; 96374; 96376; 99284; 99285; A9153; A9270; C9113; G0378; J2250; J3010; J7120; Q9967

== ENCOUNTER 2022-03-12 14:28 | Outpatient (CLI) | payer MEDICARE, SELFPAY ==
--- OUTSIDE RECORDS SUMMARY | 2022-03-12 14:46 | XMS_ITS | Encounter Summary ---
:1945 Author Organization [facility] Address [address] [place] [id number] Care Team Providers Name Role Phone Benjamin Henao MD Unavailable Benjamin Henao MD Primary Care Provider Encounter Details Date Type Department Care Team Description 03/11/2019 Records - [facility] CONVERSION Provider, Winter jacobsen Social History Tobacco [...] on filedocumented in this encounter Care Teams Dry Cleaning Checker Relationship Specialty Start Date End Date Benjamin Henao MD PCP - General Internal Medicine 07/24/[address] [place] [id number] Benjamin Henao MD Assigned PCP 10/05/[address] [place] [id number] documented as of this encounter
--- OUTSIDE RECORDS SUMMARY | 2022-03-12 14:46 | XMS_ITS | Encounter Summary ---
:1945 Author Organization [facility] Address [address] [place] [id number] Care Team Providers Name Role Phone Benjamin Henao MD Unavailable Benjamin Henao MD Primary Care Provider Encounter Details Date Type Department Care Team Description 10/20/2020 Records - [facility] Centralized Provider, [facility] Scheduling [facility] [place] [address] Social History Tobacco Use Types [...] 2:23 PM Encounter Date: 10/20/2020 Status: Signed [place] Manager: Alejandra Winter Error documented in this encounter Plan of Treatment Not on filedocumented as of this encounter Visit Diagnoses Not on filedocumented in this encounter Care Teams Gynecology Teacher Relationship Specialty Start Date End Date Benjamin Henao MD PCP - General Internal Medicine 07/24/[address] [place] [id number] Benjamin Henao MD Assigned PCP 10/05/[address] [place] [id number] documented as of this encounter
--- OUTSIDE RECORDS SUMMARY | 2022-03-12 14:46 | XMS_ITS | Encounter Summary ---
:1945 Author Organization [place] Address [address] [place] [address] Care Team Providers Name Role Phone Benjamin Henao MD Primary Care Provider Reason for Visit Reason Comments Hernia Incisiona Hernia Encounter Details Date Type Department Care Team Description 01/07/2019 Office Visit - [facility] Donato Raines Incisjean onal hernia, [facility] and DO Eliud without obstruction Bariatrics Care [address] [place] [address] [address] [place] [address] [place] [address] Social History Tobacco Use Types Packs/Day [...] Past Surgical History: Procedure Laterality Date ??? CT LAP GASTRIC BYPASS/ELIZABETH-EN-Y N/A 05/01/2017 Procedure: LAPAROSCOPIC ELIZABETH-EN-Y BASTRIC BYPASS CONVERTED TO OPEN; SPLENECTOMY; Surgeon: Naresh Grant MD; Location: [facility]; Service: General ??? SPLENECTOMY as a result [...] to follow-up accordingly. Georges Raines D.O., FACS [phone] [facility] Department of Surgery documented in this encounter Miscellaneous Notes Patient Instructions - HE - Historical Provider - 01/07/2019 10:10 AM CDT Hernia education & surgery packet provided to ptKevin [facility] Surgery P: [phone] F: [phone] documented in this encounter Plan of Treatment Not on filedocumented as of this encounter Visit Diagnoses Diagnosis Incisional hernia, without obstruction o r gangrene Incisional hernia without mention of obs truction or gangrene documented in this encounter Care Teams Retail Representative Relationship Specialty Start Date End Date Benjamin Henao MD PCP - General Internal Medicine 07/24/16 [address] [place] [address] documented as of this encounter
--- OUTSIDE RECORDS SUMMARY | 2022-03-12 14:46 | XMS_ITS | Encounter Summary ---
:1945 Author Organization [place] Address [address] [place] [address] Care Team Providers Name Role Phone Benjamin Henao MD Primary Care Provider Reason for Visit Reason Comments Orders Encounter Details Date Type Department Care Team Description 05/03/2020 Communication - [facility] Benjamin Henao MD Orders [address] [address] [place], [place] [phone] (Wo rk) [address] [phone] Social History Tobacco Use Types Packs/Day Years [...] change lab orders to future. 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
--- OUTSIDE RECORDS SUMMARY | 2022-03-12 14:46 | XMS_ITS | Encounter Summary ---
:1945 Author Organization [place] Address [address] [place] [address] Care Team Providers Name Role Phone Benjamin Henao MD Primary Care Provider Reason for Visit Reason Comments Diabetes a1c, lipids , fasting Encounter Details Date Type Department Care Team Description 06/30/2019 Office Visit - [facility] Benjamin Henao, H/O gastric bypass; [facility] Jose R FOR[employer] Essential hypertension; [place] [facility] Mixed hyperlipidemia; [address] [address] Type 2 diabetes mellitus with complicati on, without long-term current use of insulin (H); Drive [place], [place] Intestinal malabsorption, un specified type; [place] [address] Unspecified severe protein-calorie malnu trition (H); [id number] Encounter for administrative examinations, unspecified; Encounter for adoption services; [phone] [facility] surgery for neoplasm; (Fax) [...] C Antibody (Anti-HCV) Comprehensive Metabolic Panel Lipid [place] Mixed hyperlipidemia Hypertension H/O gastric bypass - [...] (ABNORMAL) Lipid Profile (06/30/2019 10:23 AM CDT) [facility] Method Time Signature Cholesterol 156 <=199 06/30/2019 [...] PLATELETS AND DIFFERENTIAL (06/30/2019 10:23 AM CDT) [facility] Method Time Signature WBC 8.6 4.0 - [...] Test developed and characteristics deter mined by [email or web address]. See Compliance Statement B : [employer] Performed by [email or web address], [address] [facility] [place] [address] www.[email or web address] Karlos Acosta MD, Lab. Director Specimen Anatomical [...] HEALTH Total 80.0 ng/mL 11:36 AM CDT [facility] (25-Hydroxy) [facility] Specimen Anatomical Collection Method [...] Organization Address City/State/ZIP Code Phon e Number [facility] [place] [id number] [place], [place] [address]S LABORATORY O LABORATORY [address] [place] [address], [facility] Zinc (06/30/2019 10:23 AM CDT) [...] Test developed and characteristics deter mined by [email or web address]. See Compliance Statement B : [employer] Performed by [email or web address], [address] [place] [address] www.[email or web address] Karlos Acosta MD, Lab. Director Specimen Anatomical [...] Test developed and characteristics deter mined by [email or web address]. See Compliance Statement B : [employer] Performed by [email or web address], [address] [place] [address] www.[email or web address] Karlos Acosta MD, Lab. Director Specimen Anatomical [...] Glucose reference range is 70-99 mg/dL per [place] [employer] (ADA) addie rojas. Benjamin Henao [...] malnutrition documented in this encounter Care Teams Needle Punch Operator Relationship Specialty Start Date End Date Benjamin Henao MD PCP - General Internal Medicine 07/24/16 [address] [place] [address] documented as of this encounter
--- OUTSIDE RECORDS SUMMARY | 2022-03-12 14:46 | XMS_ITS | Encounter Summary ---
:1945 Author Organization [place] Address [address] [place] [address] Care Team Providers Name Role Phone Benjamin Henao MD Unavailable Benjamin Henao MD Primary Care Provider Encounter Details Date Type Department Care Team Description 03/22/2020 Records - [facility] CONVERSION Provider, Winter jacobsen Social [...] on filedocumented in this encounter Care Teams Property Economist Relationship Specialty Start Date End Date Benjamin Henao MD PCP - General Internal Medicine 07/24/[address] [place] [address] Benjamin Henao MD Assigned PCP 10/05/[address] [place] [address] documented as of this encounter
--- OUTSIDE RECORDS SUMMARY | 2022-03-12 14:46 | XMS_ITS ---
:1945 Author Care Team Providers Name Role Phone CLEMENT BRIGGS MD Primary Care Provider [phone] Allergies Code Code System Name Reaction Severity Status Onset 26630 RxNorm Lisinopril Cough Mild Active 0 Notes: Some allergies listed in Docume nt: #[id number] could not be added to this patient's [...] ntigen Monroe Ruelas MD: [address] [place] [address], Ph. Social History Tobacco Smoking Status Former [...]
--- OUTSIDE RECORDS SUMMARY | 2022-03-12 14:46 | XMS_ITS | Encounter Summary ---
:1945 Author Organization [place] Address [address] [place] [address] Care Team Providers Name Role Phone Benjamin Henao MD Unavailable Benjamin Henao MD Primary Care Provider Reason for Visit Reason Comments Weight Problem Annual Encounter Details Date Type Department Care Team Description 12/16/2020 Office Visit [facility] Santos Krishna, Postoper ative malabsorption (Primary Dx); Surgery Clinic and MD Elevated bilirubin; Bariatrics Care [address] [place] [address] of diabetes mellitus [place] [address] [place] [address] [address] [address] [place], [place] [phone] [address] (Work) [phone] Social History Tobacco Use Types Packs/Day Years [...] defer unless increased frequency of pain/rapid enlargement. [facility] Nutritional Guidelines Gastric Bypass [...] Sample Grocery List Protein: ??? Fat free Finnish or light yogurt (less than 10 grams [...] lean ground beef or turkey) ??? Sloppy [place] made with low-sugar ketchup and lean ground [...] dry) ??? Toasted whole wheat bread or Benge Thins ??? Whole grain crackers ??? Baked [...] 2 oz lean roast beef on ?? Benge Thin with 1 tsp. light nguyen ?? [...] ?? cup saut??ed chopped vegetables 2 light [place] Krisp crackers Lunch Tuna Melt: ?? cup tuna mixed with 1 tsp. light nguyen over ?? Benge Thin. Top with 2-3 slicescucumber and 1 [...] chopped dan peppers Supplement 1 cup light Finnish yogurt (if needed between meals) Lunch 2 [...] ?? cup vegetables Breakfast Breakfast pizza: ?? Benge Thin spread with 1 Tbsp. low sugar spaghetti sauce, ?? cup shredded low fat cheese, melted and 1 slice of [place] tsai ?? cup fresh fruit mixed with chopped almonds Lunch ?? cup black hill soup 4-5 whole grain crackers Dinner 3 oz tilapia with lemon pepper seasoning ?? cup stewed tomatoes Supplement 1 string cheese (if needed between meals) Breakfast 2 hard boiled eggs (discard 1 egg yolk) ?? whole wheat Dutch Muffin with 1 tsp. low sugar jelly Lunch ?? cup leftover black hill soup topped with 1-2 Tbsp. low fat cheese 2-3 light [place] Krisp crackers Supplement Approved protein supplement (if [...] Portion Calories Grams of Protein Nonfat, plain Finnish yogurt (10 grams sugar or less) 3/4 [...] (broiled, grilled, baked) 3 ounces 100 21 [place]/Tuna (broiled, grilled, baked) 3 ounces 150-180 21 Shrimp, Scallops, Lobster, Crab 3 ounces 100 21 Pork loin, Pork Tenderloin 3 ounces 150 21 Boneless, skinless chicken /turkey breast (broiled, grilled, baked) 3 ounces 120 21 [place], [place], [place], and Venison 3 ounces 120 21 Lean cuts of red meat and pork (sirloin, round, tenderloin, flank, ground 93%-96%) 3 ounces 170 21 Lean or Extra Lean Ground Hinkle 1/2 cup 150 20 90-95% Lean [place]inkle Burger 1 dong 140-180 21 Low-fat casserole with lean meat 3/4 cup 200 17 Luncheon Meats (turkey, lean ham, roast beef, chicken) 3 ounces 100 21 Egg (boiled, poached, scrambled) 1 Egg 60 7 Egg Substitute 1/2 cup 70 10 Nuts (limit to 1 serving per day) 3 Tbsp. 150 7 Nut Lund (peanut, almond) Limit to 1 serving or less daily 1 Tbsp. 90 4 Soy Burger (varies) 1 90-130 15 Garbanzo, Black, Johansen Beans 1/2 cup 110 7 Refried Beans 1/2 cup 100 7 Kidney and Wade beans 1/2 cup 110 7 Tempeh 3 oz 175 18 Vegan crumbles 1/2 cup 100 14 Tofu 1/2 cup 110 14 [place] (beans and extra lean beef or turkey) [...] thenthese general numbers, but these are in theLoco Partnerspark. http://www.Clouli.GliAffidabili.it/lbwmdher-vazqwb-veejsfricn/ is a nice reference for manydifferent activities [...] map out distances by using sites like, ONE Change, Brandlive, or kontoblick. Get out there and earn it, burn it, or pay it forward. Banking calories is always a good idea if youknow an occasion is coming up where you plan to indulge. The goal for all adults around the work is at [id number] minutes weekly of moderate aerobic activity like [...] found for: HGBA1C No components found for: [id number] No components found for: WTHARCKI20RX No components found for: FERRITIN No components found for: PTH No components found for: 38560 No components found for: 7597 No results [...] Other Topics Concern ??? Parent/sibling w/ CABG, PR or angioplasty before 65F 55M? Not Asked [...] Gatherings with Friends and Family: ??? Attends Anabaptist Services: ??? Active Member of Clubs or [...] and opposed by aPPI). Santos Krishna MD [facility]. 12/16/2020 1:20 PM [phone] (clinic phone) [phone] (fax) No images are attached to the encounter. Medical Decision Makin minutes spent on the date of the encounter doing chart review, history and exam, documentation and further activities per the note documented in this encounter Plan of Treatment Not on filedocumented as of this encounter Results UA reflex to Microscopic - lab collect (12/16/2020 2:56 PM CDT) [facility] Method Time Signature Color Urine Yellow Colorless, 12/16/2020 [facility] Straw, Light 2:59 PM CDT LABORATORY Yellow, Yellow Appearance Urine Clear Clear 12/16/2020 [facility] 2:59 PM CDT LABORATORY Glucose Urine Negative Negative 12/16/2020 [facility] mg/dL 2:59 PM CDT LABORATORY Bilirubin Urine Negative Negative 12/16/2020 [facility] 2:59 PM CDT LABORATORY Ketones Urine Negative Negative 12/16/2020 [facility] mg/dL 2:59 PM CDT LABORATORY Specific [place] 1.020 1.005 - 12/16/2020 [facility] Urine 1.030 [...] City/State/ZIP Code Phon e Number [facility] [address] [facility] [address] Clinic - [address] (ABNORMAL) Lipid panel reflex to direct LDL Non-fasting (12/16/2020 2:17 PM CDT) [facility] Method Time Signature Cholesterol 160 <=199 12/16/2020 [facility] mg/dL 8:55 PM CDT Triglycerides 197 (H) <=149 12/16/2020 [facility] mg/dL 8:55 PM CDT Direct Measure 50 >=40 12/16/2020 [facility] HDL mg/dL 8:55 PM CDT Comment: HDL Cholesterol Reference Range: 0-2 years: No reference ranges established for asif ents under 2 years old [facility] for lipid analytes. 2-8 years: Greater than [...] City/State/ZIP Code Phon e [place] [address] [facility] [place], [place] [id number] [place] [address] [place] [address] Zinc (12/16/2020 2:17 PM CDT) ath[facility] Signature Zinc, 75.7 60.0 - 12/20/2020 [facility] Serum/Plasma 120.0 ug/dL 4:04 AM CDT [...] be elevated with zinc supplementation or fasting. ??[place] ofelia zinc concentrations may interfere with copper absorption. This test was developed and its performa nce characteristics determined by [facility]. It has not been cleared or approved [...] - 12/20/2020 4:04 AM CDT Performed By: [facility] [address] [place] [address] Volunteer Recruitment Coordinator: Promise Monsalve MD Santos Krishna MD LAB - BLOOD ORDERABLES Performing Organization Address City/State/ZIP Code Phon e Number [facility] [place], [place] [phone] [address] [facility] [address] (ABNORMAL) Vitamin B12 (12/16/2020 2:17 PM CDT) athologist Signature Vitamin B12 1,114 (H) 213 - 816 12/16/2020 [facility] pg/mL 9:29 PM CDT Specimen Anatomical Collection Method / Collection Time Recei nona Time (Source) Location / Volume Laterality Blood BLOOD SPECIMEN / Venipuncture / 12/16/2020 2:17 2020 2:18 Unknown Unknown PM CDT PM CDT Santos Krishna MD LAB - BLOOD ORDERABLES Performing Organization Address City/State/ZIP Code Phon e Number [facility] [place] [address] [phone] [place], [place] [address] [place] [address] [place] [address] (ABNORMAL) Vitamin B1 whole blood (12/16/2020 2:17 PM CDT) athologist Signature Vitamin B1 182 (H) 70 - 180 12/20/2020 [facility] Whole Blood nmol/L 9:45 AM CDT Level [...] and its performa nce characteristics determined by [facility]. It has not been cleared or approved [...] - 12/20/2020 9:45 AM CDT Performed By: [facility] [address] [place] [address] Volunteer Recruitment Coordinator: Promise Monsalve MD Santos Krishna MD LAB - BLOOD ORDERABLES Performing Organization Address [facility] Phon e Number [facility] [place], [place] [phone] [address] [facility] [address] Vitamin A (12/16/2020 2:17 PM CDT) P athologist Signature Vitamin A 0.70 0.30 - 12/18/2020 [facility] 1.20 mg/L 9:40 PM CDT Retinol 0.07 0.00 - 12/18/2020 [facility] Palmitate 0.10 mg/L 9:40 PM CDT Vitamin A Normal 12/18/2020 [facility] Interp 9:40 PM CDT Comment: This test was developed and its performa nce characteristics determined by [facility]. It has not been cleared or approved by the US Food and Drug Adminis tration. This test was performed in a CLIA certified labora tory and is intended for clinical purposes. Specimen Anatomical Collection Method / Collection Time Recei nona Time (Source) Location / Volume Laterality Blood BLOOD SPECIMEN / Venipuncture / 12/16/2020 2:17 2020 2:18 Unknown Unknown PM CDT PM CDT Narrative [facility] - 12/18/2020 9:40 PM CDT Performed By: [facility] [address] [place] [address] Volunteer Recruitment Coordinator: Promise Monsalve MD Santos Krishna MD LAB - BLOOD ORDERABLES Performing Organization Address City/State/ZIP Code Phon e Number [facility] [place], [place] [phone] [place] [phone] TSH (12/16/2020 2:17 PM CDT) athologist Signature TSH 1.75 0.30 - 5.00 12/16/2020 [facility] uIU/mL 9:28 PM CDT Specimen Anatomical Collection Method / Collection Time Recei nona Time (Source) Location / Volume Laterality Blood BLOOD SPECIMEN / Venipuncture / 12/16/2020 2:17 2020 2:18 Unknown Unknown PM CDT PM CDT Santos Krishna MD LAB - BLOOD ORDERABLES Performing Organization Address City/State/ZIP Code Phon e Number [facility] [place] [address] [place] [address], [facility] [phone] Parathyroid Hormone Intact (12/16/2020 2:17 PM CDT) athologist Signature Parathyroid 83 10 - 86 12/16/2020 [facility] Hormone Intact pg/mL 9:55 PM CDT Specimen Anatomical Collection Method / Collection Time Recei nona Time (Source) Location / Volume Laterality Blood BLOOD SPECIMEN / Venipuncture / 12/16/2020 2:17 2020 2:18 Unknown Unknown PM CDT PM CDT Santos Krishna MD LAB - BLOOD ORDERABLES Performing Organization Address City/State/ZIP Code Phon e Number [facility] [place] [address] [place] [address], [facility] [phone] (ABNORMAL) Hemoglobin A1c (12/16/2020 2:17 PM CDT) Analysis Performed At [facility] [place] Signature Hemoglobin A1C 6.0 (H) 0.0 - [...] Performing Organization Address City/[facility] Phon e Number [facility] [place], [place] [address] [place] [address] [facility] [place], [place] [address] Folate (12/16/2020 2:17 PM CDT) athologist Signature Folic Acid 18.0 >=3.5 ng/mL 12/16/2020 [facility] 10:02 PM CDT Specimen Anatomical Collection Method / Collection Time Recei nona Time (Source) Location / Volume Laterality Blood BLOOD SPECIMEN / Venipuncture / 12/16/2020 2:17 2020 2:18 Unknown Unknown PM CDT PM CDT Santos Krishna MD LAB - BLOOD ORDERABLES Performing Organization Address City/State/[facility] Code Phon [place] [address] [place] [address], [facility] [phone] Ferritin (12/16/2020 2:17 PM CDT) P [...] City/State/ZIP Code Phon e [place] [address] [place] [address], [facility] [phone] (ABNORMAL) Comprehensive metabolic panel (12/16/2020 2:17 PM CDT) [facility] Method Time Signature Sodium 139 136 - [...] LAB - BLOOD ORDERABLES Performing Organization Address [facility]/State/ZIP Code Ph[place] [address] [facility] [place], [place] [address] [phone] (ABNORMAL) CBC with platelets (12/16/2020 2:17 PM CDT) [facility] Method Time Signature WBC Count 10.9 4.0 [...] LAB - BLOOD ORDERABLES Performing Organization Address City/State/[facility] Code Phon e Number [facility] - [address] [facility] [address] Clinic - [address] documented in this encounter Visit Diagnoses Diagnosis Postoperative malabsorption - Primary Other and unspecified postsurgical nonab sorption Elevated bilirubin Disorders of bilirubin excretion Hx of diabetes mellitus Personal history of other endocrine, met abolic, and immunity disorders documented in this encounter Care Teams Apparel Cutter Relationship Specialty Start Date End Date Benjamin Henao MD PCP - General Internal Medicine 07/24/[address] [place] [address] Benjamin Henao MD Assigned PCP 10/05/[address] [place] [address] documented as of this encounter
--- OUTSIDE RECORDS SUMMARY | 2022-03-12 14:46 | XMS_ITS | Encounter Summary ---
:1945 Author Organization [place] Address [address] [place] [address] Care Team Providers Name Role Phone Benjamin Henao MD Unavailable Benjamin Henao MD Primary Care Provider Encounter Details Date Type Department Care Team Description 12/16/2020 Lab [facility] Pos toperative malabsorption (Primary Dx); [facility] Family history of diabetes linda echeverria; [facility] Elevated bilirubin [address] [place] [address] Social History Tobacco Use [...] - lab collect (12/16/2020 2:56 PM CDT) [facility] Method Time Signature Color Urine Yellow Colorless, 12/16/2020 [facility] Straw, Light 2:59 PM CDT LABORATORY Yellow, Yellow Appearance Urine Clear Clear 12/16/2020 [facility] 2:59 PM CDT LABORATORY Glucose Urine Negative Negative 12/16/2020 [facility] mg/dL 2:59 PM CDT LABORATORY Bilirubin Urine Negative Negative 12/16/2020 [facility] 2:59 PM CDT LABORATORY Ketones Urine Negative Negative 12/16/2020 [facility] mg/dL 2:59 PM CDT LABORATORY Specific [place] 1.020 1.005 - 12/16/2020 [facility] Urine 1.030 [...] Collection / CDT PM CDT Unknown Narrative [facility] - 12/16/2020 2:59 PM CDT Microscopic not indicated Santos Krishna MD LAB - URINE ORDERABLES Performing Organization Address City/State/ZIP Code Phon e Number [facility] [address] [place] [address], [facility] - [address] (ABNORMAL) Lipid panel reflex to direct LDL Non-fasting (12/16/2020 2:17 PM CDT) [facility] Method Time Signature Cholesterol 160 <=199 12/16/2020 [facility] mg/dL 8:55 PM CDT Triglycerides 197 (H) <=149 12/16/2020 [facility] mg/dL 8:55 PM CDT Direct Measure 50 >=40 12/16/2020 [facility] HDL mg/dL 8:55 PM CDT Comment: HDL Cholesterol Reference Range: 0-2 years: No reference ranges established for asif ents under 2 years old ??at [facility] for lipid analytes. 2-8 years: Greater than [...] City/State/ZIP Code [place] [address] [facility] [place], [place] [address] [phone] Zinc (12/16/2020 2:17 PM CDT) athologist [...] be elevated with zinc supplementation or fasting. ??[place] of[place] zinc concentrations may interfere with copper absorption. This test was developed and its performa nce characteristics determined by [employer]. It has not been cleared or approved [...] - 12/20/2020 4:04 AM CDT Performed By: [employer] [address] [place] [address] Extra Gang Supervisor: Promise Monsalve MD Santos Krishna MD LAB - BLOOD ORDERABLES Performing Organization Address City/[facility]/ZIP [facility] Phon e Number [place] [phone] 500 [facility] [phone] (ABNORMAL) Vitamin B12 (12/16/2020 2:17 PM CDT) athologist Signature Vitamin B12 1,114 (H) 213 - 816 12/16/2020 [facility] pg/mL 9:29 PM CDT Specimen Anatomical Collection Method / Collection Time Recei nona Time (Source) Location / Volume Laterality Blood BLOOD SPECIMEN / Venipuncture / 12/16/2020 2:17 2020 2:18 Unknown Unknown PM CDT PM CDT Santos Krishna MD LAB - BLOOD ORDERABLES Performing Organization Address City/[facility]/ZIP Code Phon e Number [facility] [place] [address] [phone] [place], [place] [address] [phone] (ABNORMAL) Vitamin B1 whole blood (12/16/2020 2:17 PM CDT) athologist Signature Vitamin B1 182 (H) 70 - 180 12/20/2020 [facility] Whole Blood nmol/L 9:45 AM CDT Level [...] and its performa nce characteristics determined by [employer]. It has not been cleared or approved by the [place] Food and Drug Adminis tration. This test was performed in a CLIA certified labora tory and is intended for clinical purposes. Specimen Anatomical Collection Method / Collection Time Recei nona Time (Source) Location / Volume Laterality Blood BLOOD SPECIMEN / Venipuncture / 12/16/2020 2:17 2020 2:18 Unknown Unknown PM CDT PM CDT Narrative [facility] - 12/20/2020 9:45 AM CDT Performed By: [employer] [address] [place] [address] Extra Gang Supervisor: Promise Monsalve MD Santos Krishna MD LAB - BLOOD ORDERABLES Performing Organization Address City/State/ZIP Code Phon e Number [place], [place] [phone] [place] [phone] Vitamin A (12/16/2020 2:17 PM CDT) P athologist Signature Vitamin A 0.70 0.30 - 12/18/2020 [facility] 1.20 mg/L 9:40 PM CDT Retinol 0.07 0.00 - 12/18/2020 [facility] Palmitate 0.10 mg/L 9:40 PM CDT Vitamin A Normal 12/18/2020 [facility] Interp 9:40 PM CDT Comment: This test was developed and its performa nce characteristics determined by [employer]. It has not been cleared or approved by the US Food and Drug Adminis tration. This test was performed in a CLIA certified labora tory and is intended for clinical purposes. Specimen Anatomical Collection Method / Collection Time Recei nona Time (Source) Location / Volume Laterality Blood BLOOD SPECIMEN / Venipuncture / 12/16/2020 2:17 2020 2:18 Unknown Unknown PM CDT PM CDT Narrative [facility] - 12/18/2020 9:40 PM CDT Performed By: [employer] [address] [place] [id number] Extra Gang Supervisor: Promise Monsalve MD Santos Krishna MD LAB - BLOOD ORDERABLES Performing Organization Address City/State/ZIP Code Phon e Number [facility] [place], [place] [phone] [place] [phone] TSH (12/16/2020 2:17 PM CDT) P athologist Signature TSH 1.75 0.30 - 5.00 12/16/2020 [facility] uIU/mL 9:28 PM CDT Specimen Anatomical Collection Method / Collection Time Recei nona Time (Source) Location / Volume Laterality Blood BLOOD SPECIMEN / Venipuncture / 12/16/2020 2:17 2020 2:18 Unknown Unknown PM CDT PM CDT Santos Krishna MD LAB - BLOOD ORDERABLES Performing Organization Address City/[facility]/ZIP Code Phon e Number [facility] [place] [address] [place] [address], [facility] [phone] Parathyroid Hormone Intact (12/16/2020 2:17 PM CDT) athologist Signature Parathyroid 83 10 - 86 12/16/2020 [facility] Hormone Intact pg/mL 9:55 PM CDT Specimen Anatomical Collection Method / Collection Time Recei nona Time (Source) Location / Volume Laterality Blood BLOOD SPECIMEN / Venipuncture / 12/16/2020 2:17 2020 2:18 Unknown Unknown PM CDT PM CDT Santos Krishna MD LAB - BLOOD ORDERABLES Performing Organization Address City/[facility]/ZIP Code Phon e Number [facility] [place] [address] [place] [address], [facility] [phone] (ABNORMAL) Hemoglobin [...] LAB - BLOOD ORDERABLES Performing Organization Address City/[facility] Phon e Number [facility] [address] [facility]AT[facility] [place], [place] [phone] [place] [address] - [address] Folate (12/16/2020 2:17 PM CDT) athologist [facility] Folic Acid 18.0 >=3.5 ng/mL 12/16/2020 [facility] 10:02 PM CDT Specimen Anatomical Collection Method / Collection Time Recei nona Time (Source) Location / Volume Laterality Blood BLOOD SPECIMEN / Venipuncture / 12/16/2020 2:17 2020 2:18 Unknown Unknown PM CDT PM CDT Santos Krishna MD LAB - BLOOD ORDERABLES Performing Organization Address City/[facility] Code Phon [place] [address] [place] [address], [facility] [phone] [place] [address] Ferritin (12/16/2020 2:17 PM CDT) athologist Signature [...] City/State/ZIP Code Ph[place] [address] [phone] [facility] [address], [facility] [phone] (ABNORMAL) Comprehensive metabolic panel (12/16/2020 2:17 PM CDT) [facility] Method Time Signature Sodium 139 136 - [...] City/State/ZIP Code [place] [address] [facility] [place], [place] [phone] [place] [address] [address] (ABNORMAL) CBC with platelets (12/16/2020 2:17 PM CDT) [facility] Method Time Signature WBC Count 10.9 4.0 [...] Organization Address City/State/ZIP Code Phon e Number [facility] [address] [place] [address], [facility] - [address] 25 Hydroxyvitamin D2 and D3 (12/16/2020 [...] a nd treatment affect the concentration of 05-wsbfomu-Fxwaqfo D. Values may decreas e during winter [...] its performa nce characteristics determined by the [facility], ??Special Chemistry Laboratory. 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
--- OUTSIDE RECORDS SUMMARY | 2022-03-12 14:46 | XMS_ITS | Clinical Summary ---
:1945 Author Organization [place] Address [address] [place] [address] Care Team Providers Name Role Phone Benjamin [...] Conversion Colonic Diverticulosis Overview: Created by Conversion [employer] and [employer] [facility] Annotation: Sep 03 2011 2:15 PM - [...] this topic Medical Devices Implanted Type Area Senior Estimator Device Shelf Model / Identifier Expiration Serial / Date Lot Staple Reload [place] 60mm 2.6mm White - [id number] - S Metallic N/ A: [employer] 02/19/2022 [id number] / Implanted: Qty: 2 on 05/01/2017 Hardware/Anc Abdomen [employer] / hor [id number] Procedures Procedure Name Priority Date/Time Associated Diagnosis [...] Effective Dates Phone Addre ss Type Group [facility] MEDICARE [id number] 2019-Present [phone] [address] [place] [address] Care Teams Garage Attendant Relationship Specialty Start Date End Date Benjamin Henao MD PCP - General Internal Medicine 07/24/[address] [place] [phone] Benjamin Henao MD Assigned PCP 10/05/[address] [place] [address]
--- OUTSIDE RECORDS SUMMARY | 2022-03-12 14:46 | XMS_ITS | Encounter Summary ---
:1945 Author Organization [place] Address [address] [place] [address] Care Team Providers Name Role Phone Benjamin Henao MD Primary Care Provider Reason for Visit Reason Comments Follow Up Appointment Encounter Details Date Type Department Care Team Description 04/13/2020 Communication - [facility] [place] Benjamin Henao, [facility]; [facility] Jose R FORTUNE Appointment [facility] 1824 [facility] 1825 [place] [phone] Social History Tobacco Use Types Packs/Day Years [...] Dr. Henao on 05/02 at 3:40 pm. Juyd Hansen CMA [employer] Telephone Encounter - Benjamin Henao MD - 04/13/2020 8:37 PM CST He's due for DM follow up with me. Please schedule him within the next 2-3 weeks at his convenience. [employer] Telephone Encounter - Radha Terry - 04/13/2020 11:38 AM CST Patient is calling and was wondering when Dr. Henao would like him to follow up and get labs done.Please advise. Radha Terry CMA ............... 11:38 AM, 04/13/20 [employer] documented in this encounter Plan of Treatment Not on filedocumented as of this encounter Visit Diagnoses Not on filedocumented in this encounter Care Teams Insurance Producer Relationship Specialty Start Date End Date Benjamin Henao MD PCP - General Internal Medicine 07/24/[address] [place] [address] documented as of this encounter
--- OUTSIDE RECORDS SUMMARY | 2022-03-12 14:46 | XMS_ITS | Encounter Summary ---
:1945 Author Organization [place] Address [address] [place] [address] Care Team Providers Name Role Phone Benjamin Henao MD Primary Care Provider Encounter Details Date Type Department Care Team Description 05/09/2020 Orders Only [facility] Benjamin Henao MD Diabetic complication (H) (Primary Dx); Clinic [address] Type 2 di abetes mellitus with manifestations (H) [address] [address] [place], [place] [address] [place] [address] Social History Tobacco Use Types [...] uncontrolled documented in this encounter Care Teams Certified Flex Endoscope Reprocessor Relationship Specialty Start Date End Date Benjamin Henao MD PCP - General Internal Medicine 07/24/16 [address] [place] [address] documented as of this encounter
--- OUTSIDE RECORDS SUMMARY | 2022-03-12 14:46 | XMS_ITS | Encounter Summary ---
:1945 Author Organization [place] Address [address] [place] [address] Care Team Providers Name Role Phone Benjamin Henao MD Primary Care Provider Reason for Visit Reason Comments Diabetes blood sugar this morning 123 Encounter Details Date Type Department Care Team Description 05/02/2020 Office Visit - [facility] Benjamin Henao, Type 2 diabetes mellitus with complication, without long-term current use of insulin (H); [facility] Jose R FORTUNE High cholesterol; [place] [address] [facility] Essential hypertension; [address] Impotence of organic origin; Drive [place], [place] Morbid obesity (H); [place] [address] Mixed hyperlipidemia [address] Social History Tobacco Use Types Packs/Day Years Used Date Smoking Tobacco: Former Cigarettes Quit : 09/28/1989 Smokeless Tobacco: Never Comments: quit 27 yrs ago as of 09/28/2016 Alcohol Use Standard Drinks/Week Comments No 0 (1 standard drink = 0.6 oz pure alcoho l) Sex Assigned at Date Recorded Not on file documented as of this encounter Progress Notes Benjamin Henao MD - 05/02/2020 3:40 PM CST Faith Adames is a 74 y.o. male who is being evaluated via a billable telephone visit. What phone number would you like to be contacted at? [phone] How would you like to obtain your [...] No follow-ups on file. MD Chilo Goetz [facility] Subjective Faith Adames is 74 [...] virtual visit. Phone call duration: 8 minutes STACK DEVELOPER documented in this encounter Miscellaneous Notes Addendum Note - Inna Andrews - 05/02/2020 3:40 PM CST Addendum Note by Inna Andrews at 05/02/2020 3:40 PM Author: Inna Andrews Service: -- Author Type: Tester Operator Helper Filed: 05/04/2020 7:46 AM Encounter Date: 05/02/2020 Status: Signed Car Rental Service Attendant: Inna Andrews (Tester Operator Helper) Addended by: INNA ANDREWS on: 05/04/2020 07:46 AM Modules accepted: Orders STACK DEVELOPER documented in this encounter Plan of Treatment Not on filedocumented as of this encounter Visit Diagnoses Diagnosis Type 2 diabetes mellitus with complicati on, without long-term current use of insulin (H) High cholesterol Pure hypercholesterolemia Essential hypertension Unspecified essential hypertension Impotence of organic origin Morbid obesity (H) Morbid obesity Mixed hyperlipidemia documented in this encounter Care Teams Bobbin Winder Relationship Specialty Start Date End Date Benjamin Henao MD PCP - General Internal Medicine 07/24/[address] [place] [address] documented as of this encounter
--- OUTSIDE RECORDS SUMMARY | 2022-03-12 14:46 | XMS_ITS | Encounter Summary ---
:1945 Author Organization [place] Address [address] [place] [address] Care Team Providers Name Role Phone Benjamin Henao MD Primary Care Provider Encounter Details Date Type Department Care Team Description 03/29/2020 Records - [facility], [facility] [address] [facility] 180 [place] [address] Social History Tobacco Use Types Packs/Day Years [...] order was created through External Result Entry [facility] Consultation External Historical Provider OTHER documented in this encounter Visit Diagnoses Not on filedocumented in this encounter Care Teams Room Worker Relationship Specialty Start Date End Date Benjamin Henao MD PCP - General Internal Medicine 07/24/16 [address] [place] [address] documented as of this encounter
--- OUTSIDE RECORDS SUMMARY | 2022-03-12 14:46 | XMS_ITS | Encounter Summary ---
:1945 Author Organization [place] Address [address] [place] [address] Care Team Providers Name Role Phone Benjamin Henao MD Primary Care Provider Encounter Details Date Type Department Care Team Description 05/18/2019 Records - [facility] Provider, [facility] 16[address] [facility] 180 [place] [address] Social History Tobacco Use Types Packs/Day Years [...] order was created through External Result Entry [facility] CONSULTATION EXTERNAL Historical Provider OTHER documented in this encounter Visit Diagnoses Not on filedocumented in this encounter Care Teams Produce Laborer Relationship Specialty Start Date End Date Benjamin Henao MD PCP - General Internal Medicine 07/24/16 [address] [place] [address] documented as of this encounter
--- OUTSIDE RECORDS SUMMARY | 2022-03-12 14:46 | XMS_ITS | Encounter Summary ---
:1945 Author Organization [place] Address [address] [place] [address] Care Team Providers Name Role Phone Benjamin [...] on filedocumented in this encounter Care Teams Stone Derrickman And Rigger Relationship Specialty Start Date End Date Benjamin Henao MD PCP - General Internal Medicine 07/24/16 [address] [place] [address] Benjamin Henao MD Assigned PCP 10/05/20 [address] [place] [address] documented as of this encounter
--- OUTSIDE RECORDS SUMMARY | 2022-03-12 14:47 | XMS_ITS | Encounter Summary ---
:1945 Author Organization [place] Address [address] [place] [address] Care Team Providers Name Role Phone Benjamin Henao MD Primary Care Provider Reason for Visit Reason Comments Weight Problem Lab draw reminder Encounter Details Date Type Department Care Team Description 04/08/2018 [facility] Gayatri Weber Weight Problem (Lab [facility] and B, RN draw holger nder) Bariatrics Care 17 [facility] 140 [place] [address] Social History Tobacco Use Types [...] unspecified documented in this encounter Care Teams Base Manager Relationship Specialty Start Date End Date Benjamin Henao MD PCP - General Internal Medicine 07/24/16 47[address] [place] [address] documented as of this encounter
--- OUTSIDE RECORDS SUMMARY | 2022-03-12 14:47 | XMS_ITS | Encounter Summary ---
:1945 Author Organization [place] Address [address] [place] [address] Care Team Providers Name Role Phone Benjamin Henao MD Primary Care Provider Encounter Details Date Type Department Care Team Description 10/29/2017 Communication - [facility] Santos Krishna, [facility] and Bariatrics Care [address] [place] [phone] Social History Tobacco Use Types Packs/Day Years [...] on filedocumented in this encounter Care Teams Pan Devulcanizer Relationship Specialty Start Date End Date Benjamin Henao MD PCP - General Internal Medicine 07/24/16 [address] [place] [address] documented as of this encounter
--- OUTSIDE RECORDS SUMMARY | 2022-03-12 14:47 | XMS_ITS | Encounter Summary ---
:1945 Author Organization [place] Address [address] [place] [address] Care Team Providers Name Role Phone Benjamin Henao MD Primary Care Provider Encounter Details Date Type Department Care Team Description 10/15/2017 [facility] Gayatri Weber Postsurgic al malabsorption; [facility] and Yaquelin RN Intestina l malabsorption, unspecified type; [facility]rics Care S/P bariatric surgery 17 [facility] 140 [place] [phone] Social History Tobacco Use Types Packs/Day Years [...] with in October. 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
--- OUTSIDE RECORDS SUMMARY | 2022-03-12 14:47 | XMS_ITS | Encounter Summary ---
:1945 Author Organization [place] Address [address] [place] [address] Care Team Providers Name Role Phone Benjamin Henao MD Primary Care Provider Reason for Visit Reason Comments Diabetes Encounter Details Date Type Department Care Team Description 06/03/2017 [facility] Santos Krishna Diabe [facility] and Bariatrics Care [address] [place] [phone] Social History Tobacco Use Types Packs/Day Years [...] on filedocumented in this encounter Care Teams Lease Examiner Relationship Specialty Start Date End Date Benjamin Henao MD PCP - General Internal Medicine 07/24/16 [address] [place] [address] documented as of this encounter
--- OUTSIDE RECORDS SUMMARY | 2022-03-12 14:47 | XMS_ITS | Encounter Summary ---
:1945 Author Organization [facility] Address [address] [place] [address] Care Team Providers Name Role Phone Benjamin Henao MD Primary Care Provider Encounter Details Date Type Department Care Team Description 04/14/2018 Ambulatory - M [facility] Postsurgic al malabsorption; [facility] bariatri c surgery; [facility] Intestinal malabsorption, un specified [address] Location [place] [address] Social History Tobacco Use Types [...] 04/14/2018 9:20 R esults for this AM TRUCK CRANE OPERATOR HELPER procedure are i n the results section. ZINC Routine 04/14/2018 9:20 Results for this AM TRUCK CRANE OPERATOR HELPER procedure are i n the results section. VITAMIN B1 WHOLE BLOOD Routine 04/14/2018 9:20 Re sults for this AM TRUCK CRANE OPERATOR HELPER procedure are i n the results section. VITAMIN A Routine 04/14/2018 9:20 Results for this AM TRUCK CRANE OPERATOR HELPER procedure are i n the results section. PARATHYROID HORMONE Routine 04/14/2018 9:20 Resul ts for this INTACT AM TRUCK CRANE OPERATOR HELPER procedure are i n the results section. HEMOGLOBIN A1C Routine 04/14/2018 9:20 Results fo r this AM TRUCK CRANE OPERATOR HELPER procedure are i n the results section. FOLATE Routine 04/14/2018 9:20 Results for this AM TRUCK CRANE OPERATOR HELPER procedure are i n the results section. VITAMIN B12 Routine 04/14/2018 9:20 Results for this AM TRUCK CRANE OPERATOR HELPER procedure are i n the results section. CBC WITH PLATELETS Routine 04/14/2018 9:20 Result s for this AM TRUCK CRANE OPERATOR HELPER procedure are i n the results section. LIPID PROFILE Routine 04/14/2018 9:20 Results for this AM TRUCK CRANE OPERATOR HELPER procedure are i n the results section. FERRITIN Routine 04/14/2018 9:20 Results for this AM TRUCK CRANE OPERATOR HELPER procedure are i n the results section. COMPREHENSIVE METABOLIC Routine 04/14/2018 9:20 R esults for this PANEL AM TRUCK CRANE OPERATOR HELPER procedure are i n the results section. documented in this encounter Results Hemoglobin A1c (04/14/2018 9:20 AM TRUCK CRANE OPERATOR HELPER) athologist Signature Hemoglobin A1C 5.3 3.5 - 6.0 04/14/2018 HEALTH % 9:45 AM TRUCK CRANE OPERATOR HELPER [facility] Specimen Anatomical Collection Method / Collection Time Recei nona Time (Source) Location / Volume Laterality Blood specimen Venipuncture / 04/14/2018 9:20 04/14/20 18 9:20 (specimen) Unknown AM TRUCK CRANE OPERATOR HELPER AM TRUCK CRANE OPERATOR HELPER Santos Krishna MD LAB - BLOOD ORDERABLES Performing Organization Address City/State/ZIP Code Phon [place] [address] [place] [phone] CLINIC LABORATORY Vitamin B1 whole blood (04/14/2018 9:20 AM TRUCK CRANE OPERATOR HELPER) athologist Signature Vitamin B1 123 70 - 180 04/17/2018 [facility] Whole Blood nmol/L 9:23 AM TRUCK CRANE OPERATOR HELPER LABORATORIES Level Comment: INTERPRETIVE INFORMATION: Vitamin B1, Wh ole Blood This assay measures the concentration of thiamine diphosphate (TDP), the primary active form of vitami n B1. Approximately 90 percent of vitamin B1 present in whole b lood is TDP. Thiamine and thiamine monophosphate, which comprise t he remaining 10 percent, are not measured. Test developed and characteristics deter mined by [employer]. See Compliance Statement B : [employer]DEXMA/CS Performed by [employer], [address] [place] [address] [email or web address], Karlos Acosta MD, Lab. Director Specimen Anatomical Collection Method / Collection Time Recei nona Time (Source) Location / Volume Laterality Blood specimen Venipuncture / 04/14/2018 9:20 04/16/20 18 6:04 (specimen) Unknown AM TRUCK CRANE OPERATOR HELPER AM TRUCK CRANE OPERATOR HELPER Santos Krishna MD LAB - BLOOD ORDERABLES Performing Organization Address City/[facility]/ZIP [facility] Phon e Number [employer] [facility] [employer] [place], [place] [phone] [place] [phone] [employer]) [address] [address] (ABNORMAL) Vitamin B12 (04/14/2018 9:20 AM TRUCK CRANE OPERATOR HELPER) P athologist Signature Vitamin B12 1,220 (H) 213 - 816 04/14/2018 [facility] pg/mL 3:00 PM TRUCK CRANE OPERATOR HELPER [facility] Specimen Anatomical Collection Method / Collection Time Recei nona Time (Source) Location / Volume Laterality Blood specimen Venipuncture / 04/14/2018 9:20 04/14/20 18 1:48 (specimen) Unknown AM TRUCK CRANE OPERATOR HELPER PM TRUCK CRANE OPERATOR HELPER Santos Krishna MD LAB - BLOOD ORDERABLES Performing Organization Address City/[facility]/ZIP Code Phon e [place] [address] [place] [address] [address] [facility] (ABNORMAL) CBC with platelets (04/14/2018 9:20 AM TRUCK CRANE OPERATOR HELPER) Patholo gist Method Time Signature WBC 10.7 4.0 - 11.0 04/14/2018 [facility] thou/uL 9:39 AM [facility] RBC Count 4.22 (L) 4.40 - 04/14/2018 HEALTH 6.20 9:39 AM [facility] mill/uL [facility] Hemoglobin 12.5 (L) 14.0 - 04/14/2018 HEALTH 18.0 g/dL 9:39 AM [facility] Hematocrit 39.3 (L) 40.0 - 04/14/2018 HEALTH 54.0 % 9:[address] [facility] MCV 93 80 - 100 04/14/2018 HEALTH fL 9:[address] [facility] MCH 29.7 27.0 - 04/14/2018 HEALTH 34.0 pg 9:[address] [facility] MCHC 31.8 (L) 32.0 - 04/14/2018 HEALTH 36.0 g/dL 9:[address] [facility] RDW 12.1 11.0 - 04/14/2018 HEALTH 14.5 % 9:[address] [facility] Platelet Count 261 140 - 440 04/14/2018 HEALTH thou/uL 9:[address] [facility] Mean Platelet 9.0 7.0 - 10.0 04/14/2018 HEALTH Volume fL 9:[address] [facility] Specimen Anatomical Collection Method / Collection Time Recei nona Time (Source) Location / Volume Laterality Blood specimen Venipuncture / 04/14/2018 9:20 04/14/20 18 9:20 (specimen) Unknown AM TRUCK CRANE OPERATOR HELPER AM TRUCK CRANE OPERATOR HELPER Santos Krishna MD LAB - BLOOD ORDERABLES Performing Organization Address City/State/ZIP Code Phon e Number [facility] [place] [address] [address] [facility] [address] [place] [address] [phone] CLINIC LABORATORY Parathyroid Hormone Intact (04/14/2018 9:20 AM TRUCK CRANE OPERATOR HELPER) P athologist Signature Parathyroid 33 10 - 86 04/14/2018 HEALTH Hormone Intact pg/mL 2:32 PM [facility] Specimen Anatomical Collection Method / Collection Time Recei nona Time (Source) Location / Volume Laterality Blood specimen Venipuncture / 04/14/2018 9:20 04/14/20 18 1:48 (specimen) Unknown AM TRUCK CRANE OPERATOR HELPER PM TRUCK CRANE OPERATOR HELPER Santos Krishna MD LAB - BLOOD ORDERABLES Performing Organization Address [facility] Phon [place] [address] [place] [address] [address] [facility] 1,25 Dihydroxyvitamin D (04/14/2018 9:20 AM TRUCK CRANE OPERATOR HELPER) athologist Signature Vitamin D, 36.4 30.0 - 04/15/2018 [facility] Total 80.0 ng/mL 8:16 AM TRUCK CRANE OPERATOR HELPER [facility] (25-Hydroxy) [facility] Specimen Anatomical Collection Method / Collection Time Recei nona Time (Source) Location / Volume Laterality Blood specimen Venipuncture / 04/14/2018 9:20 04/14/20 18 1:48 (specimen) Unknown AM TRUCK CRANE OPERATOR HELPER PM TRUCK CRANE OPERATOR HELPER Narrative [facility] - 04/15/2018 8:16 AM TRUCK CRANE OPERATOR HELPER Deficiency <10.0 ng/mL Insufficiency 10.0-29.9 ng/mL Sufficiency 30.0-80.0 ng/mL Toxicity (possible) >100.0 ng/mL Santos Krishna MD LAB - BLOOD ORDERABLES Performing Organization Address [facility] Phon e Number [place] [address] [place] [address] [address] [facility] [address] [place] [address], [facility] Zinc (04/14/2018 9:20 AM TRUCK CRANE OPERATOR HELPER) athologist Signature Zinc, 71 60 - 120 04/16/2018 [facility] Serum/Plasma ug/dL 3:39 PM TRUCK CRANE OPERATOR HELPER LABORATORIES Comment: INTERPRETIVE INFORMATION: Zinc, Serum or Plasma Circulating zinc concentrations are depe ndent on albumin status and are depressed with malnutrition. Zin c may also be lowered with infection, inflammation, stress, oral co ntraceptives, and . Zinc may be elevated with zin c supplementation or fasting. Elevated zinc concentrations ma y interfere with copper absorption. Test developed and characteristics deter mined by [employer]. See Compliance Statement B : [employer]/CS Performed by [employer], [address] [place] [address] [email or web address], Karlos Acosta MD, Lab. Director Specimen Anatomical Collection Method / Collection Time Recei nona Time (Source) Location / Volume Laterality Blood specimen Venipuncture / 04/14/2018 9:20 04/16/20 18 2:57 (specimen) Unknown AM TRUCK CRANE OPERATOR HELPER AM TRUCK CRANE OPERATOR HELPER Santos Krishna MD LAB - BLOOD ORDERABLES Performing Organization Address [facility] Phon e Number [facility] [address] [place], [place] [phone] [place] [phone] [employer] [address] [phone] Folate (04/14/2018 9:20 AM TRUCK CRANE OPERATOR HELPER) P athologist Signature Folic Acid >20.0 >=3.5 ng/mL 04/14/2018 [facility] 3:09 PM [facility] Specimen Anatomical Collection Method / Collection Time Recei nona Time (Source) Location / Volume Laterality Blood specimen Venipuncture / 04/14/2018 9:20 04/14/20 18 1:49 (specimen) Unknown AM TRUCK CRANE OPERATOR HELPER PM TRUCK CRANE OPERATOR HELPER Santos Krishna MD LAB - BLOOD ORDERABLES Performing Organization Address City/[facility] [place] [address] [address] [facility] Vitamin A (04/14/2018 9:20 AM TRUCK CRANE OPERATOR HELPER) Analysis Performed At Patho logist Time Signature Vitamin A 0.75 0.30 - 04/17/2018 [facility] 1.20 mg/L 10:20 AM TRUCK CRANE OPERATOR HELPER LABORATORIES Vitamin A 0.06 0.00 - 04/17/2018 [facility] (Retinyl 0.10 mg/L 10:20 AM TRUCK CRANE OPERATOR HELPER LABORATORIES Palmitate) Vitamin A Normal 04/17/2018 [facility] Interp 10:20 AM TRUCK CRANE OPERATOR HELPER LABORATORIES Comment: Test developed and characteristics deter mined by [employer]. See Compliance Statement B : [employer]/CS Performed by [employer], [address] [place] [address] [email or web address], Karlos Acosta MD, Lab. Director Specimen Anatomical Collection Method / Collection Time Recei nona Time (Source) Location / Volume Laterality Blood specimen Venipuncture / 04/14/2018 9:20 04/16/20 18 5:34 (specimen) Unknown AM TRUCK CRANE OPERATOR HELPER AM TRUCK CRANE OPERATOR HELPER Santos Krishna MD LAB - BLOOD ORDERABLES Performing Organization Address City/[facility]/ZIP Code Phon e Number [facility] [employer] [place], [place] [phone] [place] [phone] [employer] ([employer]) [address] [phone] Lipid Profile (04/14/2018 9:20 AM TRUCK CRANE OPERATOR HELPER) [facility] Method Time Signature Triglycerides 123 <=149 04/14/2018 HEALTH mg/dL 3:37 PM [facility] Cholesterol 177 <=199 04/14/2018 HEALTH mg/dL 3:37 PM [facility] LDL Cholesterol 96 <=129 04/14/2018 [facility] Calculated mg/dL 3:37 PM [facility] Direct Measure 56 >=40 04/14/2018 [facility] HDL mg/dL 3:37 PM [facility] Patient Fasting > Unknown 04/14/2018 HEALTH 8hrs? 3:37 PM [facility] Specimen Anatomical Collection Method / Collection Time Recei nona Time (Source) Location / Volume Laterality Blood specimen Venipuncture / 04/14/2018 9:20 04/14/20 18 1:48 (specimen) Unknown AM TRUCK CRANE OPERATOR HELPER PM TRUCK CRANE OPERATOR HELPER Santos Krishna MD LAB - BLOOD ORDERABLES Performing Organization Address City/State/ZIP [facility] Phon [place] [address] [place] [address] [facility] (ABNORMAL) Comprehensive metabolic panel (04/14/2018 9:20 AM [facility]) [facility] Method Time Signature Sodium 137 136 - 145 04/14/2018 HEALTH mmol/L 3:37 PM [facility] Potassium 4.5 3.5 - 5.0 04/14/2018 HEALTH mmol/L 3:37 PM [facility] Chloride 106 98 - 107 04/14/2018 HEALTH mmol/L 3:37 PM [facility] Carbon Dioxide 20 (L) 22 - 31 04/14/2018 [facility] (CO2) mmol/L 3:37 PM [facility] Anion Gap 11 5 - 18 04/14/2018 [facility] mmol/L 3:37 PM [facility] Glucose 153 (H) 70 - 125 04/14/2018 HEALTH mg/dL 3:37 PM [facility] Urea Nitrogen 27 8 - 28 04/14/2018 HE[facility] mg/dL 3:37 PM [facility] Creatinine 1.18 0.70 - 04/14/2018 HEALTH 1.30 mg/dL 3:37 PM [facility] GFR Estimate If >60 >60 04/14/2018 HEALTH Black mL/min/1.7 3:[address] LABORATORY GFR Estimate >60 >60 04/14/2018 HEALTH mL/min/1.7 3:[address] LABORATORY Bilirubin Total 0.7 0.0 - 1.0 04/14/2018 HEALTH mg/dL 3:37 PM [facility] Calcium 9.7 8.5 - 10.5 04/14/2018 HEALTH mg/dL 3:37 PM [facility] Protein Total 7.0 6.0 - 8.0 04/14/2018 HEALTH g/dL 3:37 PM [facility] Albumin 3.8 3.5 - 5.0 04/14/2018 [facility] g/dL 3:37 PM TRUCK CRANE OPERATOR HELPER [facility] Alkaline 89 45 - 120 04/14/2018 [facility] Phosphatase U/L 3:37 PM TRUCK CRANE OPERATOR HELPER [facility] AST 23 0 - 40 U/L 04/14/2018 HEALTH 3:37 PM TRUCK CRANE OPERATOR HELPER [facility] ALT 21 0 - 45 U/L 04/14/2018 [facility] 3:37 PM TRUCK CRANE OPERATOR HELPER [facility] Specimen Anatomical Collection Method / Collection Time Recei nona Time (Source) Location / Volume Laterality Blood specimen Venipuncture / 04/14/2018 9:20 04/14/20 18 1:48 (specimen) Unknown AM TRUCK CRANE OPERATOR HELPER PM TRUCK CRANE OPERATOR HELPER Narrative [facility] - 04/14/2018 3:37 PM TRUCK CRANE OPERATOR HELPER Fasting Glucose reference range is 70-99 mg/dL per [employer] (ADA) addie rojas. Santos Krishna MD LAB - BLOOD ORDERABLES Performing Organization Address City/[facility]/ZIP [facility] Phon e Number [facility] [place] [id number] [place] [address]'S LABORATORY [facility] [address] [place] [address], [facility] Ferritin (04/14/2018 9:20 AM TRUCK CRANE OPERATOR HELPER) P athologist Signature Ferritin 35 27 - 300 04/14/2018 [facility] ng/mL 2:54 PM TRUCK CRANE OPERATOR HELPER [facility] Specimen Anatomical Collection Method / Collection Time Recei nona Time (Source) Location / Volume Laterality Blood specimen Venipuncture / 04/14/2018 9:20 04/14/20 18 1:48 (specimen) Unknown AM TRUCK CRANE OPERATOR HELPER PM TRUCK CRANE OPERATOR HELPER Santos Krishna MD LAB - BLOOD ORDERABLES Performing Organization Address City/[facility]/ZIP [facility] Phon e Number [facility] [place] [address] [address] documented in this encounter Visit Diagnoses Diagnosis Postsurgical malabsorption Other and unspecified postsurgical nonab sorption S/P bariatric surgery Bariatric surgery status Intestinal malabsorption, unspecified documented in this encounter Care Teams Cloth Carrier Relationship Specialty Start Date End Date Benjamin Henao MD PCP - General Internal Medicine 07/24/16 [address] [place] [address] documented as of this encounter
--- OUTSIDE RECORDS SUMMARY | 2022-03-12 14:47 | XMS_ITS | Encounter Summary ---
:1945 Author Organization [facility] Address [address] [place] [address] Care Team Providers Name Role Phone Benjamin Henao MD Primary Care Provider Reason for Visit Reason Comments Weight Problem 1 yr p/o Encounter Details Date Type Department Care Team Description 06/05/2018 Office Visit - M [facility] [place], Postoper ative malabsorption; [facility] and MD Santos Erectile dysfunction, unspecified erecti le dysfunction type; Bariatrics Care 2945 H/O gastric bypass; [facility] Type 2 diabetes mellitus without complic ation, without long-term current use of insulin (H); [address] [place] [address] Gastroesophageal reflux disease without esophagitis [place] [address] [facility] [phone] Social History Tobacco Use Types Packs/Day Years [...] (231 lb 3.2 oz) 06/05/2018 10:30 AM NETWORK SOLUTIONS ARCHITECT Height 172.7 cm (5' 8) 06/05/2018 10:30 AM NETWORK SOLUTIONS ARCHITECT Body Mass Index 35.15 06/05/2018 10:30 AM NETWORK SOLUTIONS ARCHITECT documented in this encounter Progress Notes Santos [...] lbs since surgery. Overall compliance with the [facility] has been excellent. 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 He's also going to start more strength training at his gym. We discussed optimizing meals/protein intake but I will have our candle wrapper reach out for some further guidance given his unusually high workout production. . Faith Adames feels that he has achieved his preoperative goals for bariatric surgery. Plan: 1. Great job on continued good metabolic health with A1c of 5.3% and 88 lbs of weight reduction. Keeping your home scale weight under 230 lbs is a good goal for the nursing home. Continue excellent exercise regimen and adding in [...] 261 04/14/2018 Lab Results Component Value Date [id number] 36.4 04/14/2018 Lab Results Component Value Date HGBA1C 5.3 04/14/2018 Lab Results Component Value Date CHOL 177 04/14/2018 Lab Results Component Value Date PTH 33 04/14/2018 Lab Results Component Value Date FERRITIN 35 04/14/2018 Lab Results Component Value Date HDL 56 04/14/2018 Lab Results Component Value Date [id number] 1,220 (H) 04/14/2018 Lab Results Component Value Date [id number] 10/19/2016 Lab Results Component Value Date [...] nutritional or structural complications. Santos Krishna MD [facility]. 06/05/2018 10:59 AM ORK SOLUTIONS ARCHITECT documented in this encounter Miscellaneous Notes Patient Instructions - HÉCTOR - Santos Krishna MD - 06/05/2018 10:30 AM NETWORK SOLUTIONS ARCHITECT Plan: 1. Great job on continued good metabolic health with A1c of 5.3% and 88 lbs of weight reduction. Keeping your home scale weight under 230 lbs is a good goal for the nursing home. Continue excellent exercise regimen and adding in [...] Sample Grocery List Protein: ??? Fat free Jamaican or light yogurt (less than 10 grams [...] lean ground beef or turkey) ??? Sloppy [place] made with low-sugar ketchup and lean ground [...] dry) ??? Toasted whole wheat bread or Hamilton Thins ??? Whole grain crackers ??? Baked/boiled/mashed [...] beef or turkey Supplement 6 oz light Jamaican yogurt (as needed) Dinner 3 oz grilled, [...] substitute and turkey sausage ?? whole grain Maldivian muffin with 1 teaspoon low sugar jelly Lunch 3 oz seasoned, skinless grilled chicken ?? cup grilled vegetables Dinner 2 oz lean beef ?? cup brown rice ?? cup strawberries Supplement 1 string cheese (as needed) Breakfast 6 ounces light Jamaican yogurt ?? cup unsweetened mixed berries Lunch [...] ounces turkey sausage dong ?? whole wheat Maldivian muffin Supplement Approved protein supplement (as needed between meals) Lunch 3 oz lean ham, turkey, or chicken ?? cup tomatoes Dinner 2 oz. sirloin steak ?? cup mixed vegetables ?? cup brown rice [employer] SOL[employer] ARCHITECT documented in this encounter Plan of Treatment [...] reflux documented in this encounter Care Teams Cleaning Associate Relationship Specialty Start Date End Date Benjamin Henao MD PCP - General Internal Medicine 07/24/16 [address] [place] [address] documented as of this encounter
--- OUTSIDE RECORDS SUMMARY | 2022-03-12 14:47 | XMS_ITS | Encounter Summary ---
:1945 Author Organization [place] Address [address] [place] [address] Care Team Providers Name Role Phone Benjamin Henao MD Primary Care Provider Reason for Visit Reason Comments Dysuria x5 days - burning, frequency , frequency Encounter Details Date Type Department Care Team Description 12/23/2018 Office Visit - [facility] [place] Benjamin Henao, Dysu kathleen; [facility] Jose R FORTUNE Low vitamin D level [facility] 182 [facility] [address] [place] [address] [phone] Social History Tobacco Use Types Packs/Day Years [...] Body Mass Index 34.67 06/05/2018 10:30 AM ENTERTAINMENT REPORTER documented in this encounter Progress Notes Benjamin [...] reflex to Culture (12/23/2018 12:50 PM CDT) [facility] Method Time Signature Color Urine Yellow Colorless, 12/23/2018 [facility] Yellow, 1:04 PM CDT [facility] Straw, [facility] Light LABORATORY Yellow Appearance Urine Clear Clear 12/23/2018 HEALTH 1:04 PM T [facility] Glucose Urine Negative Negative 12/23/2018 [facility] 1:04 PM T [facility] Bilirubin Urine Negative Negative 12/23/2018 [facility] 1:04 PM T [facility] Ketones Urine Negative Negative 12/23/2018 HEALTH 1:04 PM [facility] Specific [place] 1.015 1.005 - 12/23/2018 [facility] Urine 1.030 1:04 PM T [facility] Blood Urine Large (A) Negative 12/23/2018 HE[facility] 1:04 PM [facility] pH Urine 5.0 5.0 - 8.0 12/23/2018 [facility] 1:04 PM T [facility] Protein Albumin Negative Negative 12/23/2018 [facility] Urine mg/dL 1:04 PM [facility] Urobilinogen 0.2 E.U./dL 0.2 12/23/2018 [facility] Urine E.U./dL, 1:04 PM [facility] 1.0 E.U./dL [facility] LABORATORY Nitrite Urine Negative Negative 12/23/2018 [facility] 1:04 PM [facility] Leukocyte Negative Negative 12/23/2018 [facility] Esterase Urine 1:04 PM [facility] Bacteria Urine None Seen None Seen 12/23/2018 HEALTH hpf 1:04 PM [facility] RBC Urine 50-100 (A) None Seen, 12/23/2018 [facility] 0-2 hpf 1:04 PM T [facility] WBC Urine 0-5 None Seen, 12/23/2018 [facility] 0-5 hpf 1:04 PM CDT [facility] Squamous 5-10 (A) None Seen, 12/23/2018 [facility] Epithelials 0-5 lpf 1:04 PM CDT [facility] LABORATORY Specimen Anatomical Collection Method Collection Time Receive d Time (Source) Location / / Volume Laterality Urine specimen Non-blood 12/23/2018 12:50 9 (specimen) Collection / PM CDT 12:50 PM CDT Unknown Narrative [facility] - 12/23/2018 1:04 PM CDT UC not indicated Benjamin Henao MD LAB - URINE ORDERABLES Performing Organization Address City/State/ZIP Code Phon e Number [facility] - [place], [place] [id number] [place] [address] [address] [place] [address] documented in this encounter Visit Diagnoses Diagnosis Dysuria Low vitamin D level documented in this encounter Care Teams Grinder Set Up Operator Surface Relationship Specialty Start Date End Date Benjamin Henao MD PCP - General Internal Medicine 07/24/[address] [place] [address] documented as of this encounter
--- OUTSIDE RECORDS SUMMARY | 2022-03-12 14:47 | XMS_ITS | Encounter Summary ---
:1945 Author Organization [place] Address [address] [place] [address] Care Team Providers Name Role Phone Benjamin [...] on filedocumented in this encounter Care Teams Brewery Technician Relationship Specialty Start Date End Date Benjamin Henao MD PCP - General Internal Medicine 07/24/[address] [place] [address] Benjamin Henao MD Assigned PCP 10/05/[address] [place] [address] documented as of this encounter
--- OUTSIDE RECORDS SUMMARY | 2022-03-12 14:47 | XMS_ITS | Encounter Summary ---
:1945 Author Organization [place] Address [address] [place] [address] Care Team Providers Name Role Phone Benjamin Henao MD Primary Care Provider Encounter Details Date Type Department Care Team Description 10/22/2018 [facility] [address] [place] [phone] Social History Tobacco Use Types Packs/Day Years [...] on filedocumented in this encounter Care Teams Senior Application Programmer Relationship Specialty Start Date End Date Benjamin Henao MD PCP - General Internal Medicine 07/24/16 [address] [place], [place] [phone] documented as of this encounter
--- OUTSIDE RECORDS SUMMARY | 2022-03-12 14:47 | XMS_ITS | Encounter Summary ---
:1945 Author Organization [place] Address [address] [place] [address] Care Team Providers Name Role Phone Benjamin Henao MD Unavailable Benjamin Henao MD Primary Care Provider Encounter Details Date Type Department Care Team Description 10/09/2017 Records - [facility] CONVERSION Provider, Winter jacobsen Social History [...] on filedocumented in this encounter Care Teams Weekday Babysitter Relationship Specialty Start Date End Date Benjamin Henao MD PCP - General Internal Medicine 07/24/[address] [place] [address] Benjamin Henao MD Assigned PCP 10/05/[address] [place] [address] documented as of this encounter
--- OUTSIDE RECORDS SUMMARY | 2022-03-12 14:47 | XMS_ITS | Encounter Summary ---
:1945 Author Organization [place] Address [address] [place] [address] Care Team Providers Name Role Phone Benjamin Henao MD Unavailable Benjamin Henao MD Primary Care Provider Encounter Details Date Type Department Care Team Description 11/10/2018 Records - [facility] CONVERSION Provider, Winter jacobsen Social History Tobacco [...] on filedocumented in this encounter Care Teams Belt Tender Relationship Specialty Start Date End Date Benjamin Henao MD PCP - General Internal Medicine 07/24/[address] [place] [address] Benjamin Henao MD Assigned PCP 10/05/[address] [place] [address] documented as of this encounter
--- OUTSIDE RECORDS SUMMARY | 2022-03-12 14:47 | XMS_ITS | Encounter Summary ---
:1945 Author Organization [place] Address [address] [place] [address] Care Team Providers Name Role Phone Benjamin Henao MD Unavailable Benjamin Henao MD Primary Care Provider Encounter Details Date Type Department Care Team Description 02/26/2018 Records - [facility] CONVERSION Provider, Winter jacobsen Social History [...] on filedocumented in this encounter Care Teams Nailer Machine Relationship Specialty Start Date End Date Benjamin Henao MD PCP - General Internal Medicine 07/24/[address] [place] [address] Benjamin Henao MD Assigned PCP 10/05/[address] [place] [address] documented as of this encounter
--- OUTSIDE RECORDS SUMMARY | 2022-03-12 14:47 | XMS_ITS | Encounter Summary ---
:1945 Author Organization [place] Address [address] [place] [address] Care Team Providers Name Role Phone Benjamin Henao MD Primary Care Provider Reason for Visit Reason Comments Diabetes not fasting Medication Update Encounter Details Date Type Department Care Team Description 11/21/2018 [facility] Visit [facility] Benjamin Henao, Type 2 diabetes mellitus without complication, without long-term current use of insulin (H); [facility] Jose R FORTUNE Type 2 diabetes mellitus with complicati on, without long-term current use of insulin (H); [facility] 1824 [facility] coronary artery arlen cium score between 200 and 399 [facility] [place] [phone] Social History Tobacco Use Types Packs/Day [...] Body Mass Index 34.36 06/05/2018 10:30 AM TRAINING MANAGER documented in this encounter Progress Notes Juliano [...] Glycosylated Hemoglobin A1c Microalbumin, Random Urine Lipid [place] Type 2 diabetes mellitus with complication, without [...] (ABNORMAL) Lipid Profile (11/21/2018 1:28 PM CDT) [facility] gist Method Time Signature Cholesterol 163 [...] organs documented in this encounter Care Teams Receiving Room Clerk Relationship Specialty Start Date End Date Benjamin Henao MD PCP - General Internal Medicine 07/24/[address] [place] [address] documented as of this encounter
--- OUTSIDE RECORDS SUMMARY | 2022-03-12 14:47 | XMS_ITS | Encounter Summary ---
:1945 Author Organization [place] Address [address] [place] [address] Care Team Providers Name Role Phone Benjamin Henao MD Primary Care Provider Reason for Visit Reason Comments Other Other; low BP - dizzy when s tanding Diabetes Encounter Details Date Type Department Care Team Description 06/13/2017 Office Visit - [facility] Benjamin Henao MD [address] [address] [facility] [place] [address] Social History Tobacco Use Types [...] 117 kg (258 lb) 06/13/2017 1:20 PM PHP SOFTWARE ENGINEER Height - - Body Mass Index 39.23 05/21/2017 10:24 AM PHP SOFTWARE ENGINEER documented in this encounter Progress Notes Benjamin [...] will follow-up in 2-3 weeks for reevaluation. SOFTWARE ENGINEER documented in this encounter Plan of Treatment Not on filedocumented as of this encounter Visit Diagnoses Diagnosis Hypotension Hypotension, unspecified documented in this encounter Care Teams Tire Curer Relationship Specialty Start Date End Date Benjamin Henao MD PCP - General Internal Medicine 07/24/[address] [place] [address] documented as of this encounter
--- OUTSIDE RECORDS SUMMARY | 2022-03-12 14:47 | XMS_ITS | Encounter Summary ---
:1945 Author Organization [place] Address [address] [place] [address] Care Team Providers Name Role Phone Benjamin Henao MD Primary Care Provider Reason for Visit Reason Comments Weight Problem Post-op Visit 3 wks s/p RNY Encounter Details Date Type Department Care Team Description 05/21/2017 [facility] S/P gastric bypass [facility] and [address] [place] [address] Bariat[address] [place], [place] (Work) [phone] Social History Tobacco Use [...] 123.8 kg (273 lb) 05/21/2017 10:24 AM QUALITY PROCESS LEAD Height 172.7 cm (5' 8) 05/21/2017 10:24 AM QUALITY PROCESS LEAD Body Mass Index 41.51 05/21/2017 10:24 AM QUALITY PROCESS LEAD documented in this encounter Progress Notes Gayatri Weber, RN - 05/21/2017 10:30 AM CST Pt is 3 weeks s/p open RNY and is here to have his katya removed. See flowsheet. Gayatri Weber RN, CBN [facility] Surgery and Bariatric Care P [phone] F [phone] ITY PROCESS LEAD Naresh Grant MD - 05/21/2017 10:30 AM [...] for the dietitian visit. Naresh Grant MD [facility] Department of Surgery ITY PROCESS LEAD documented in this encounter Plan of Treatment Not on filedocumented as of this encounter Visit Diagnoses Diagnosis S/P gastric bypass Bariatric surgery status documented in this encounter Care Teams Head Sulfide Operator Relationship Specialty Start Date End Date Benjamin Henao MD PCP - General Internal Medicine 07/24/[address] [place] [address] documented as of this encounter
--- OUTSIDE RECORDS SUMMARY | 2022-03-12 14:47 | XMS_ITS | Encounter Summary ---
:1945 Author Organization [place] Address [address] [place] [address] Care Team Providers Name Role Phone Benjamin Henao MD Primary Care Provider Encounter Details Date Type Department Care Team Description 04/17/2018 Communication - [facility] Santos Krishna, [facility] and Bariatrics Care [address] [place] [address] [place] [id number] [place] [address] [phone] (Work) [phone] Social History Tobacco Use Types Packs/Day Years [...] on filedocumented in this encounter Care Teams Gluing Machine Feeder Relationship Specialty Start Date End Date Benjamin Henao MD PCP - General Internal Medicine 07/24/16 [address] [place] [address] documented as of this encounter
--- OUTSIDE RECORDS SUMMARY | 2022-03-12 14:47 | XMS_ITS | Encounter Summary ---
:1945 Author Organization [place] Address [address] [place] [address]. [place] [address] Care Team Providers Name Role Phone Benjamin [...] Team Description 01/02/2019 Office Visit - [facility] Benjamin Henao, Inci sional hernia, without obstruction or gangrene; [facility] Jose R FORTUNE Dysuria; [employer] 1824 [employer] [employer] Screening for prostate cance r; [address] [employer] [place] [phone] Social History Tobacco Use Types Packs/Day [...] Negative Negative 01/02/2019 11:19 AM CDT Specific [place] 1.020 1.005 - 01/02/2019 Urine 1.030 11:19 [...] organ documented in this encounter Care Teams Cook Room Supervisor Relationship Specialty Start Date End Date Benjamin Henao MD PCP - General Internal Medicine 07/24/[address] [place] [address] documented as of this encounter
--- OUTSIDE RECORDS SUMMARY | 2022-03-12 14:47 | XMS_ITS | Encounter Summary ---
:1945 Author Organization [place] Address [address] [place] [address] Care Team Providers Name Role Phone Benjamin Henao MD Primary Care Provider Reason for Visit Reason Comments Nutrition Counseling Encounter Details Date Type Department Care Team Description 07/22/2017 Office Visit - [facility] ProviderSahil surgery status; [facility] and Historical Obesity ( BMI 30-39.9); Bariatrics Care Dietary coun seling [address] [phone] Social History Tobacco Use Types [...] iron 2x/day, calcium citrate 400-600 mg 2x/day, 5773-2583 mcg of Sublingual B-12 daily, and 5000 [...] 2x/day, calcium citrate 400- 600 mg 2x/day, [phone] mcg of Sublingual B-12 daily, and 5000 [...] counseling documented in this encounter Care Teams High Scaler Relationship Specialty Start Date End Date Benjamin Henao MD PCP - General Internal Medicine 07/24/16 [address] [place] [address] documented as of this encounter
--- OUTSIDE RECORDS SUMMARY | 2022-03-12 14:47 | XMS_ITS | Encounter Summary ---
:1945 Author Organization [place] Address [address] [place] [address] Care Team Providers Name Role Phone Benjamin Henao MD Primary Care Provider Reason for Visit Reason Comments Diabetes status check post bariatric surgery Encounter Details Date Type Department Care Team Description 05/31/2017 Communication - [facility] Kisha Krishna (status [facility] and MD Santos check post bariatric Bariatrics Care [address]... [address] [phone] Social History Tobacco Use Types Packs/Day Years [...] on filedocumented in this encounter Care Teams J2Ee Programmer Relationship Specialty Start Date End Date Benjamin Henao MD PCP - General Internal Medicine 07/24/16 [address] [place], [place] [phone] (work) documented as of this encounter
--- OUTSIDE RECORDS SUMMARY | 2022-03-12 14:47 | XMS_ITS | Encounter Summary ---
:1945 Author Organization [place] Address [address] [place] [address] Care Team Providers Name Role Phone Benjamin Henao MD Primary Care Provider Reason for Visit Reason Comments Diabetes Encounter Details Date Type Department Care Team Description 06/03/2017 [facility], [facility] Santos Krishna [facility] and [facility]ariatrics Care [address] [place] [phone] Social History Tobacco Use Types Packs/Day Years [...] on filedocumented in this encounter Care Teams Catia Designer Relationship Specialty Start Date End Date Benjamin Henao MD PCP - General Internal Medicine 07/24/16 [address] [place] [address] documented as of this encounter
--- OUTSIDE RECORDS SUMMARY | 2022-03-12 14:47 | XMS_ITS | Encounter Summary ---
:1945 Author Organization [place] Address [address] [place] [address] Care Team Providers Name Role Phone Benjamin Henao MD Primary Care Provider Reason for Visit Reason Comments Nutrition Counseling Encounter Details Date Type Department Care Team Description 06/06/2017 [facility] Bariatric surgery status; [facility] and Obesity, morbid, BMI 40.0-49.9 (H); [facility]rics Care Nutritional counseling [address] [phone] Social History Tobacco Use Types [...] counseling documented in this encounter Care Teams Metal Baler Relationship Specialty Start Date End Date Benjamin Henao MD PCP - General Internal Medicine 07/24/[address] [place] [address] documented as of this encounter
--- OUTSIDE RECORDS SUMMARY | 2022-03-12 14:47 | XMS_ITS | Encounter Summary ---
:1945 Author Organization [facility] Address [address] [place] [address] Care Team Providers Name Role Phone Benjamin Henao MD Primary Care Provider Reason for Visit Reason Comments Follow Up med check Labs Only future Encounter Details Date Type Department Care Team Description 10/22/2017 [facility] Type 2 diabetes mellitus without complication, unspecified chcf insulin use status (H); [facility] Jose R [place] H/O gastric bypass; [address] Postsurgical malabsorption; [address] Intestinal malabsorption, unspecified ty pe; Drive [place], [place] [phone] Social History Tobacco Use Types Packs/Day [...] documented in this encounter Progress Notes Benjamin Heano MD - 10/22/2017 11:00 AM CDT Faith [...] CBC with platelets (10/22/2017 11:49 AM CDT) [facility] Method Time Signature WBC 12.8 (H) 4.0 - 11.0 10/22/2017 HEALTH thou/uL 12:32 PM CDT [facility] RBC Count 4.16 (L) 4.40 - 10/22/2017 HEALTH 6.20 12:32 PM CDT [facility] mill/uL [facility] Hemoglobin 11.9 (L) 14.0 - 10/22/2017 HEALTH 18.0 g/dL 12:32 PM CDT [facility] Hematocrit 37.1 (L) 40.0 - 10/22/2017 HEALTH 54.0 % 12:32 PM CDT [facility] MCV 89 80 - 100 10/22/2017 HEALTH fL 12:32 PM CDT [facility] MCH 28.5 27.0 - 10/22/2017 HEALTH 34.0 pg 12:32 PM CDT [facility] MCHC 32.0 32.0 - 10/22/2017 HEALTH 36.0 g/dL 12:32 PM CDT [facility] RDW 13.9 11.0 - 10/22/2017 HEALTH 14.5 % 12:32 PM CDT [facility] Platelet Count 311 140 - 440 10/22/2017 [facility] thou/uL 12:32 PM CDT [facility] Mean Platelet 9.0 7.0 - 10.0 10/22/2017 [facility] Volume fL 12:32 PM CDT [facility] LABORATORY Specimen Anatomical Collection Method / Collection Time Recei nona Time (Source) Location / Volume Laterality Blood specimen Venipuncture / 10/22/2017 11:49 018 (specimen) Unknown AM CDT 11:49 AM CDT Santos Krishna MD LAB - BLOOD ORDERABLES Performing Organization Address City/State/ZIP Code Phon e Number [facility] [place] [address] 1875 [facility] [address] [place] [address] CLINIC LABORATORY (ABNORMAL) Albumin Random Urine Quantitative (10/22/2017 11:49 AM CDT) [facility] gist Method Time Signature Microalbumin 1.49 [...] 6.0 10/22/2017 HEALTH % 12:41 PM CDT [facility] LAB[facility] Specimen Anatomical Collection Method / Collection Time Recei nona Time (Source) Location / Volume Laterality Blood specimen Venipuncture / 10/22/2017 11:49 2 018 (specimen) Unknown AM CDT 11:49 AM CDT Santos Krishna MD LAB - BLOOD ORDERABLES Performing Organization Address City/[facility] Phon e Number [facility] [place] [address] 1875 [facility] 1875 [place], [place] [address] CLINIC LABORATORY (ABNORMAL) Lipid Profile (10/22/2017 11:49 AM CDT) [facility] gist Method Time Signature Triglycerides 141 <=149 10/22/2017 HEALTH mg/dL 8:00 PM CDT [facility] Cholesterol 210 (H) <=199 10/22/2017 HEALTH mg/dL 8:00 PM CDT [facility] LDL Cholesterol 137 (H) <=129 10/22/2017 HEALTH Calculated mg/dL 8:00 PM CDT [facility] Direct Measure 45 >=40 10/22/2017 [facility] HDL mg/dL 8:00 PM CDT [facility] Patient Fasting > Yes 10/22/2017 HEALTH 8hrs? 8:00 PM CDT [facility] Specimen Anatomical Collection Method / Collection Time Recei nona Time (Source) Location / Volume Laterality Blood specimen Venipuncture / 10/22/2017 11:49 018 6:45 (specimen) Unknown AM CDT PM CDT Santos Krishna MD LAB - BLOOD ORDERABLES Performing Organization Address City/State/ZIP [facility] Phon [place] [address] [facility] [address] [facility] Vitamin B1 whole blood (10/22/2017 11:49 AM CDT) P athologist Signature Vitamin B1 118 70 - 180 10/26/2017 [facility] Whole Blood nmol/L 7:51 AM CDT LABORATORIES [...] Test developed and characteristics deter mined by [employer]. See Compliance Statement B : [employer]/CS Performed by [employer], [address] [place] [phone] [email or web address], Karlos Acosta MD, Lab. Director Specimen Anatomical Collection Method / Collection Time Recei nona Time (Source) Location / Volume Laterality Blood specimen Venipuncture / 10/22/2017 11:49 018 (specimen) Unknown AM CDT 11:55 PM CDT Santos Krishna MD LAB - BLOOD ORDERABLES Performing Organization Address City/State/ZIP Code Phon e Number [place], [place] [phone] [place] [phone] [facility] [address] [address] (ABNORMAL) Comprehensive metabolic panel (10/22/2017 11:49 AM CDT) Patholo gist Method Time Signature Sodium 139 136 - 145 10/22/2017 [facility] mmol/L 8:00 PM CDT [facility] Potassium 4.5 3.5 - 5.0 10/22/2017 [facility] mmol/L 8:00 PM CDT [facility] Chloride 106 98 - 107 10/22/2017 HEALTH mmol/L 8:00 PM CDT [facility] Carbon Dioxide 23 22 - 31 10/22/2017 [facility] (CO2) mmol/L 8:00 PM CDT [facility] Anion Gap 10 5 - 18 10/22/2017 [facility] mmol/L 8:00 PM CDT [facility] Glucose 128 (H) 70 - 125 10/22/2017 HEALTH mg/dL 8:00 PM [facility] Urea Nitrogen 24 8 - 28 10/22/2017 [facility] mg/dL 8:00 PM [facility] Creatinine 1.00 0.70 - 10/22/2017 HEALTH 1.30 mg/dL 8:00 PM [facility] GFR Estimate If >60 >60 10/22/2017 HEALTH Black mL/min/1.7 8:[address] LABORATORY GFR Estimate >60 >60 10/22/2017 [facility] mL/min/1.7 8:[address] LABORATORY Bilirubin Total 0.7 0.0 - 1.0 10/22/2017 [facility] mg/dL 8:00 PM [facility] Calcium 10.1 8.5 - 10.5 10/22/2017 HEALTH mg/dL 8:00 PM [facility] Protein Total 7.0 6.0 - 8.0 10/22/2017 HEALTH g/dL 8:00 PM [facility] Albumin 3.8 3.5 - 5.0 10/22/2017 [facility] g/dL 8:00 PM [facility] Alkaline 107 45 - 120 10/22/2017 [facility] Phosphatase U/L 8:00 PM [facility] AST 18 0 - 40 U/L 10/22/2017 HEALTH 8:00 PM [facility] ALT 14 0 - 45 U/L 10/22/2017 HEALTH 8:00 PM [facility] Specimen Anatomical Collection Method / Collection Time Recei nona Time (Source) Location / Volume Laterality Blood specimen Venipuncture / 10/22/2017 11:49 018 6:45 (specimen) Unknown AM CDT PM CDT Narrative [facility] - 10/22/2017 8:00 PM T Fasting Glucose reference range is 70-99 mg/dL per [place] [employer] (ADA) addie rojas. Santos Krishna MD LAB - BLOOD ORDERABLES Performing Organization Address City/[facility]/ZIP Code Phon e [place] [address] [id number] [place] [address] LABORATORY [facility] [address] [place] [id number], [facility] (ABNORMAL) Ferritin (10/22/2017 11:49 AM CDT) athologist Signature Ferritin 25 (L) 27 - 300 10/22/2017 HEALTH ng/mL 8:25 PM CDT [facility] Specimen Anatomical Collection Method / Collection Time Recei nona Time (Source) Location / Volume Laterality Blood specimen Venipuncture / 10/22/2017 11:49 2 018 6:41 (specimen) Unknown AM CDT PM CDT Santos Krishna MD LAB - BLOOD ORDERABLES Performing Organization Address City/[facility] Code Phon [place] [address] [id number] [place] [address] LABORATORY (ABNORMAL) Vitamin B12 (10/22/2017 11:49 AM CDT) athologist Signature Vitamin B12 >2,000 (H) 213 - 816 10/22/2017 HEALTH pg/mL 8:24 PM CDT [facility] Specimen Anatomical Collection Method / Collection Time Recei nona Time (Source) Location / Volume Laterality Blood specimen Venipuncture / 10/22/2017 11:49 2 018 6:40 (specimen) Unknown AM CDT PM CDT Santos Krishna MD LAB - BLOOD ORDERABLES Performing Organization Address City/[facility]/ZIP Code Phon [place] [address] [phone] [facility] [address] [address] [facility] Parathyroid Hormone Intact (10/22/2017 11:49 AM CDT) athologist Signature Parathyroid 42 10 - 86 10/22/2017 HEALTH Hormone Intact pg/mL 7:39 PM CDT [facility] Specimen Anatomical Collection Method / Collection Time Recei nona Time (Source) Location / Volume Laterality Blood specimen Venipuncture / 10/22/2017 11:49 2 018 6:45 (specimen) Unknown AM CDT PM CDT Santos Krishna MD LAB - BLOOD ORDERABLES Performing Organization Address City/[facility] Phon e Number [facility] [place] [address] [address] [facility] 1,25 Dihydroxyvitamin D (10/22/2017 11:49 AM CDT) athologist Signature Vitamin D, 40.2 30.0 - 10/23/2017 HEALTH Total 80.0 ng/mL 10:45 AM CDT [facility] (25-Hydroxy) [facility] Specimen Anatomical Collection [...] LAB - BLOOD ORDERABLES Performing Organization Address City/[facility] Phon e Number [facility] [place] [address] [address] [facility] [address] [address], [facility] Zinc (10/22/2017 [...] Test developed and characteristics deter mined by [employer]. See Compliance Statement B : [employer]/CS Performed by [employer], [address] [place] [id number] [email or web address], Karlos Acosta MD, Lab. Director Specimen Anatomical Collection Method / Collection Time Recei nona Time (Source) Location / Volume Laterality Blood specimen Venipuncture / 10/22/2017 11:49 018 (specimen) Unknown AM CDT 10:04 PM CDT Santos Krishna MD LAB - BLOOD ORDERABLES Performing Organization Address City/State/ZIP Code Phon e Number [facility] [place], [place] [phone] [place] [phone] [address] Folate (10/22/2017 11:49 AM CDT) athologist Signature Folic Acid 18.2 >=3.5 ng/mL 10/22/2017 [facility] 9:57 PM CDT [facility] Specimen Anatomical Collection Method / Collection Time Recei nona Time (Source) Location / Volume Laterality Blood specimen Venipuncture / 10/22/2017 11:49 018 6:46 (specimen) Unknown AM CDT PM CDT Santos Krishna MD LAB - BLOOD ORDERABLES Performing Organization Address City/[facility]/ZIP Code Phon e Number [facility] [place] [address] [facility] [address] [place] [address] [facility] Vitamin A (10/22/2017 11:49 AM CDT) Analysis Performed At Patho logist Time Signature Vitamin A 0.54 0.30 - 10/25/2017 [facility] 1.20 mg/L 12:06 PM CDT LABORATORIES Vitamin A 0.07 0.00 - 10/25/2017 [facility] (Retinyl 0.10 mg/L 12:06 PM CDT LABORATORIES Palmitate) Vitamin A Normal 10/25/2017 [facility] Interp 12:06 PM CDT LABORATORIES Comment: Test developed and characteristics deter mined by [employer]. See Compliance Statement B : [employer]/CS Performed by [employer], [address] [place] [phone] [email or web address], Karlos Acosta MD, Lab. Director Specimen Anatomical Collection Method / Collection Time Recei nona Time (Source) Location / Volume Laterality Blood specimen Venipuncture / 10/22/2017 11:49 018 (specimen) Unknown AM CDT 10:35 PM CDT Santos Krishna MD LAB - BLOOD ORDERABLES Performing Organization Address City/State/ZIP Code Phon e Number [facility] [place], [place] [phone] [place] [phone] [address] documented in this encounter Visit Diagnoses Diagnosis Type 2 diabetes mellitus without complic ation, unspecified chcf insulin use status H/O gastric bypass Bariatric surgery status Postsurgical malabsorption Other and unspecified postsurgical nonab sorption Intestinal malabsorption, unspecified ty pe S/P bariatric surgery Bariatric surgery status documented in this encounter Care Teams Linen Supervisor Relationship Specialty Start Date End Date Benjamin Henao MD PCP - General Internal Medicine 07/24/16 [address] [place] [address] documented as of this encounter
--- OUTSIDE RECORDS SUMMARY | 2022-03-12 14:47 | XMS_ITS | Encounter Summary ---
:1945 Author Organization [place] Address [address] [place] [address] Care Team Providers Name Role Phone Benjamin Henao MD Primary Care Provider Reason for Visit Reason Comments Nutrition Counseling Encounter Details Date Type Department Care Team Description 01/08/2018 Office Visit - M [facility] Provider, H/O preeti sarah bypass; [facility] and Historical Obesity ( BMI 30-39.9); Bariatrics Care Dietary coun seling; [place] Type 2 diabetes mellitus wit hout complication, unspecified long-term insulin use status (H) [address] [facility] [address] [place] [address] Social History Tobacco Use Types [...] iron 2x/day, calcium citrate 400-600 mg 2x/day, 2825-0019 mcg of Sublingual B-12 daily, and 5000 [...] 2x/day, calcium citrate 400- 600 mg 2x/day, 2521-9665 mcg of Sublingual B-12 daily, and 5000 [...] 2 diabetes mellitus without complic ation, unspecified long-term insulin use status documented in this encounter Care Teams Legal Summer Intern Relationship Specialty Start Date End Date Benjamin Henao MD PCP - General Internal Medicine 07/24/16 24[address] [place] [address] documented as of this encounter
--- OUTSIDE RECORDS SUMMARY | 2022-03-12 14:47 | XMS_ITS | Encounter Summary ---
:1945 Author Organization [place] Address [address] [place] [address] Care Team Providers Name Role Phone Benjamin Henao MD Primary Care Provider Encounter Details Date Type Department Care Team Description 10/24/2018 Records - [facility] Provider, [facility] [employer] Information Management [address] [facility] [address] [place] [address] Social History Tobacco Use Types Packs/Day Years [...] was created through External Result Entry [facility] Consultation External Historical Provider OTHER documented in this encounter Visit Diagnoses Not on filedocumented in this encounter Care Teams Sales Operations Assistant Relationship Specialty Start Date End Date Benjamin Henao MD PCP - General Internal Medicine 07/24/16 [address] [place] [address] documented as of this encounter
--- OUTSIDE RECORDS SUMMARY | 2022-03-12 14:47 | XMS_ITS | Encounter Summary ---
:1945 Author Organization [place] Address [address] [place] [address] Care Team Providers Name Role Phone Benjamin Henao MD Primary Care Provider Reason for Visit Reason Comments Medication Refill Encounter Details Date Type Department Care Team Description 09/24/2018 [facility] [place] Medicat ion Refill [facility] and MD Santos [facility]ariat[facility] [address] [place] [phone] Social History Tobacco Use Types Packs/Day Years [...] level documented in this encounter Care Teams [place] Attorney Relationship Specialty Start Date End Date Benjamin Henao MD PCP - General Internal Medicine 07/24/16 [address] [place], [place] [phone] documented as of this encounter
--- OUTSIDE RECORDS SUMMARY | 2022-03-12 14:47 | XMS_ITS | Encounter Summary ---
:1945 Author Organization [place] Address [address] [place] [address] Care Team Providers Name Role Phone Benjamin Henao MD Primary Care Provider Reason for Visit Reason Comments Appointment want to see Dr Benjamin Henao for bp check and diabetes on Jun 13 Encounter Details Date Type Department Care Team Description 06/11/2017 [facility] [place] Ivan [facility] (want [facility] Jose R [place] to see Dr Benjamin Perez 1824 [facility] ... [address]24 [place] [phone] Social History Tobacco Use Types Packs/Day Years [...] on filedocumented in this encounter Care Teams Manager Reporting Relationship Specialty Start Date End Date Benjamin Henao MD PCP - General Internal Medicine 07/24/161824 [place] [address] documented as of this encounter
--- OUTSIDE RECORDS SUMMARY | 2022-03-12 14:47 | XMS_ITS | Encounter Summary ---
:1945 Author Organization [place] Address [address] [place] [address] Care Team Providers Name Role Phone Benjamin Henao MD Primary Care Provider Reason for Visit Reason Comments Weight Problem 6MO post RNY with Dr. Grant Encounter Details Date Type Department Care Team Description 11/06/2017 Office Visit - M [facility] E[place], High cho lesterol; [facility] and MD Santos Low vitamin D level; Bariatrics Care 2945 Type II diab etes mellitus (H); [facility] Postoperative malabsorption; [address] Hx of gastric bypass; [address] [place], [place] H/[place] [phone] Social History Tobacco Use Types Packs/Day Years [...] lbs since surgery. Overall compliance with the [facility] Bariatric Surgery Program has been [...] ongoing use is desired (strong family vascular disease/[place] hx in 3 of his brothers). The [...] of 500mcg daily. 4. Follow up with park keeper for 9 month visit. 5. Reduce the [...] 311 10/22/2017 Lab Results Component Value Date [id number] 40.2 10/22/2017 Lab Results Component Value Date HGBA1C 5.6 10/22/2017 Lab Results Component Value Date CHOL 210 (H) 10/22/2017 Lab Results Component Value Date PTH 42 10/22/2017 Lab Results Component Value Date FERRITIN 25 (L) 10/22/2017 Lab Results Component Value Date HDL 45 10/22/2017 Lab Results Component Value Date [id number] >2000 (H) 10/22/2017 Lab Results Component Value Date 10662 118 10/19/2016 Lab Results Component Value Date [...] Results Component Value Date 7597 47.9 10/19/2016 @[facility](vitamin a: 1)@ Patient Profile Social History Social [...] nutritional or structural complications. Santos Krishna MD [facility]. 11/06/2017 10:39 [...] status documented in this encounter Care Teams Supervisor Mail Carriers Relationship Specialty Start Date End Date Benjamin Henao MD PCP - General Internal Medicine 07/24/16 [address] [place] [address] documented as of this encounter
--- OUTSIDE RECORDS SUMMARY | 2022-03-12 14:48 | XMS_ITS | Encounter Summary ---
:1945 Author Organization [place] Address [address] [place] [address] Care Team Providers Name Role Phone Benjamin Henao MD Primary Care Provider Encounter Details Date Type Department Care Team Description 05/14/2017 Office Visit - [facility] Naresh Grant MD Type 2 diabetes mellitus without complic ation, unspecified long term care social worker insulin use status (H); [facility] and [facility] Obstructive sleep apnea; [facility] [place], [place] S/P gastric bypass; [address] [id number] Postoperative wound infection, [address] [place], [place] (Work) [address] Social History Tobacco Use [...] 129.3 kg (285 lb) 05/14/2017 10:17 AM MANAGER GOLF Height 172.7 cm (5' 8) 05/14/2017 10:17 AM MANAGER GOLF Body Mass Index 43.33 05/14/2017 10:17 AM MANAGER GOLF documented in this encounter Progress Notes Lorna [...] breath and low energy. Lorna Krishnamurthy RN GER GOLF Naresh Grant MD - 05/14/2017 10:15 AM [...] 6 mm 31G 1 mL syringe - [facility] [id number] - dispense 1 case, refill PRN for [...] here in 1 week. Naresh Grant MD [facility] Department of Surgery GER GOLF documented in this encounter Plan of Treatment Not on filedocumented as of this encounter Procedures Procedure Name Priority Date/Time Associated Comments Diagnosis CBC WITH PLATELETS Routine 05/14/2017 11:09 Resul ts for this AND DIFFERENTIAL AM MANAGER GOLF procedure a re in the results section. documented in this encounter Results (ABNORMAL) CBC WITH PLATELETS AND DIFFERENTIAL (05/14/2017 11:09 AM MANAGER GOLF) [facility] gist Method Time Signature WBC 14.3 (H) 4.0 - 05/14/2017 [facility] 11.0 12:07 PM [facility] RBC Count 3.90 (L) 4.40 - 05/14/2017 [facility] 6.20 12:07 PM MANAGER GOLF [facility] Hemoglobin 10.6 (L) 14.0 - 05/14/2017 [facility] 18.0 g/dL 12:07 PM [facility]ENTERAnywhere to GoS [facility] Hematocrit 33.4 (L) 40.0 - 05/14/2017 [facility] 54.0 % 12:07 PM MANAGER GOLF [facility] MCV 86 80 - 100 05/14/2017 [facility] fL 12:07 PM MANAGER GOLF [facility] MCH 27.2 27.0 - 05/14/2017 [facility] 34.0 pg 12:07 PM [facility] MCHC 31.7 (L) 32.0 - 05/14/2017 [facility] 36.0 g/dL 12:07 PM [facility] RDW 14.8 (H) 11.0 - 05/14/2017 [facility] 14.5 % 12:07 PM MANAGER GOLF [facility]UN[facility] Platelet Count 754 (H) 140 - 440 05/14/2017 [facility] th/uL 12:07 PM MANAGER GOLF [facility] Mean Platelet 10.0 8.5 - 05/14/2017 [facility] Volume 12.5 fL 12:07 PM MANAGER GOLF LeapfactorBLANCHARD VALLEY HEALTH SYSTEM BLUFFTON HOSPITALSpringshotAphios'S LAB[facility]AT[facility] % Neutrophils 72 (H) 50 - 70 % 05/14/2017 [facility] 12:07 PM MANAGER GOLF [facility] % Lymphocytes 17 (L) 20 - 40 % 05/14/2017 [facility] 12:07 PM [facility] CORCORAN[facility] % Monocytes 9 2 - 10 % 05/14/2017 [facility] 12:07 PM [facility] % Eosinophils 0 0 - 6 % 05/14/2017 [facility] 12:07 PM [facility] % Basophils 1 0 - 2 % 05/14/2017 [facility] 12:07 PM [facility]-STKevin [facility] Absolute 10.2 (H) 2.0 - 7.7 05/14/2017 [facility] Neutrophils thou/uL 12:07 PM MA[facility] GOL[facility] Absolute 2.5 0.8 - 4.4 05/14/2017 [facility] Lymphocytes thou/uL 12:07 PM [facility] Absolute 1.3 (H) 0.0 - 0.9 05/14/2017 [facility] Monocytes thou/uL 12:07 PM [facility] Eosinophils 0.0 0.0 - 0.4 05/14/2017 [facility] Absolute thou/uL 12:07 PM [facility] Absolute 0.2 0.0 - 0.2 05/14/2017 [facility] Basophils thou/uL 12:07 PM MA[facility]GER GOLF [facility] Specimen Anatomical Collection Method Collection Time Receive d Time (Source) Location / / Volume Laterality Blood specimen 05/14/2017 11:09 8 (specimen) AM MANAGER GOLF 11:48 AM MANAGER GOLF Naresh Grant MD LAB - BLOOD ORDERABLES Performing Organization Address City/State/ZIP Code Phon e Number [place] [address] [address] [facility] documented in this encounter Visit Diagnoses Diagnosis Type 2 diabetes mellitus without complic ation, unspecified long term care social worker insulin use status Obstructive sleep apnea Obstructive sleep apnea (adult) (pediatr ic) S/P gastric bypass Bariatric surgery status Postoperative wound infection, subsequen t encounter documented in this encounter Care Teams Envelope Stuffer Relationship Specialty Start Date End Date Benjamin Henao MD PCP - General Internal Medicine 07/24/16 [address] [place] [address] documented as of this encounter
--- OUTSIDE RECORDS SUMMARY | 2022-03-12 14:48 | XMS_ITS | Encounter Summary ---
:1945 Author Organization [place] Address [address] [place] [address] Care Team Providers Name Role Phone Benjamin Henao MD Primary Care Provider Encounter Details Date Type Department Care Team Description 05/14/2017 Communication - [facility] Naresh Grant MD [facility] and [address] [place] [address] [place] [address] [place] [address] ([address] [place] [address] Social History Tobacco Use Types [...] on filedocumented in this encounter Care Teams Consulting Software Engineer Relationship Specialty Start Date End Date Benjamin Henao MD PCP - General Internal Medicine 07/24/16 [address] [place], [place] [id number] documented as of this encounter
--- OUTSIDE RECORDS SUMMARY | 2022-03-12 14:48 | XMS_ITS | Encounter Summary ---
:1945 Author Organization [place] Address [address] [place] [address] Care Team Providers Name Role Phone Benjamin Henao MD Primary Care Provider Reason for Visit Reason Comments Diabetes Encounter Details Date Type Department Care Team Description 05/09/2017 [facility] Krishna Diabe [facility] and [facility] [address] [place] [phone] Social History Tobacco Use Types Packs/Day Years [...] infection documented in this encounter Care Teams Zig Zag Spring Machine Operator Relationship Specialty Start Date End Date Benjamin Henao MD PCP - General Internal Medicine 07/24/16 [address] [place] [address] documented as of this encounter
--- OUTSIDE RECORDS SUMMARY | 2022-03-12 14:48 | XMS_ITS | Encounter Summary ---
:1945 Author Organization [place] Address [address] [place] [address] Care Team Providers Name Role Phone Benjamin Henao MD Primary Care Provider Reason for Visit Reason Comments Nutrition Counseling Encounter Details Date Type Department Care Team Description 05/06/2017 [facility] Bariatric surgery status; [facility] and Obesity, morbid, BMI 40.0-49.9 (H); [facility] [address] [address] Social History Tobacco Use Types [...] counseling documented in this encounter Care Teams Pharmacy Benefits Coordinator Relationship Specialty Start Date End Date Benjamin Henao MD PCP - General Internal Medicine 07/24/16 [address] [place] [address] documented as of this encounter
--- OUTSIDE RECORDS SUMMARY | 2022-03-12 14:48 | XMS_ITS | Encounter Summary ---
:1945 Author Organization [place] Address [address] [place] [address]. [place] [address] Care Team Providers Name Role Phone Benjamin Henao MD Primary Care Provider Reason for Visit Reason Comments Fatigue Encounter Details Date Type Department Care Team Description 05/06/2017 Hospital Encounter [facility] Rj Fontana rtness of breath; DEPARTMENT E, Pleural effusion, left; [address] Mild anemia; [place], [place] [id number] [phone] Social History Tobacco Use Types Packs/Day Years [...] 135.6 kg (299 lb) 05/06/2017 12:06 PM WASTE MACHINE OFFBEARER Height 172.7 cm (5' 8) 05/06/2017 12:06 PM WASTE MACHINE OFFBEARER Body Mass Index 45.46 05/06/2017 12:06 PM WASTE MACHINE OFFBEARER documented in this encounter Medications at Time [...] his behalf by Abigail Weber, a trained pediatrician/medical doctor. This document has been checked and approved by the attending provider. PAST MEDICAL HISTORY Past Surgical History: Procedure Laterality Date ??? IN LAP GASTRIC BYPASS/ELIZABETH-EN-Y N/A 05/01/2017 Procedure: LAPAROSCOPIC ELIZABETH-EN-Y BASTRIC BYPASS CONVERTED TO OPEN; SPLENECTOMY; Surgeon: Naresh Grant MD; Location: [facility]; Service: General ??? SPLENECTOMY as [...] 6 mm 31G 1 mL syringe - [facility] [id number] - dispense 1 case, refill PRN for [...] ms QTC CALCULATION (BEZET) 432 ms P Mcpherson 18 degrees R AXIS -49 degrees T AXIS -16 degrees MUSE DIAGNOSIS Sinus rhythm Left anterior fascicular block Abnormal ECG When compared with ECG of 08-APR-2017 12:55, No significant change was found Confirmed by CATY REYEZ MD LOC:JN ([id number]) on 05/06/2017 3:22:26 PM EKG EKG reviewed [...] and 3D reconstructions were performed by the development technologist. Dose reduction techniques were used. IV [...] and 3D reconstructions were performed by the development technologist. Dose reduction techniques were used. IV [...] accurate and complete. Rj Fontana MD 05/06/17 1772 E MACHINE OFFBEARER Alexsander Aranda MD - 05/06/2017 12:23 PM CST Report taken from Dr. Grant. Patient is postop recent Elizabeth-en-Y gastric bypass. 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 Patient was seen in clinic today and was dyspneic. Referred to the emergency department for further evaluation. Dr. Grant would like to be contacted with an update on the evaluation. His cell phone is [phone]. Alexsander Aranda MD 05/06/17 8638 E MACHINE OFFBEARER documented in this encounter Plan of Treatment Not on filedocumented as of this encounter Procedures Procedure Name Priority Date/Time Associated Comments Diagnosis CT ABDOMEN PELVIS W Routine 05/06/2017 4:28 PM Re sults for this CONTRAST WASTE MACHINE OFFBEARER procedure are i n the results section. CT CHEST PULMONARY Routine 05/06/2017 4:20 PM Res ults for this EMBOLISM W CONTRAST WASTE MACHINE OFFBEARER procedur e are in the results section. GLUCOSE BY METER POCT Routine 05/06/2017 2:53 PM Results for this WASTE MACHINE OFFBEARER procedure are i n the results section. TYPE AND SCREEN, ADULT STAT 05/06/2017 2:15 PM Results for this WASTE MACHINE OFFBEARER procedure are i n the results section. EKG 12-LEAD, TRACING STAT 05/06/2017 2:05 PM R esults for this ONLY WASTE MACHINE OFFBEARER procedure are i n the results section. EXTRA APPLE TOP TUBE STAT 05/06/2017 1:42 PM WASTE MACHINE OFFBEARER CBC WITH PLATELETS AND STAT 05/06/2017 1:42 PM Results for this DIFFERENTIAL WASTE MACHINE OFFBEARER procedure are i n the results section. TROPONIN I Routine 05/06/2017 1:42 PM Results f or this WASTE MACHINE OFFBEARER procedure are i n the results section. MAGNESIUM Routine 05/06/2017 1:42 PM Results f or this WASTE MACHINE OFFBEARER procedure are i n the results section. COMPREHENSIVE Routine 05/06/2017 1:42 PM Results for this METABOLIC PANEL WASTE MACHINE OFFBEARER procedure ar e in the results section. documented in this encounter Results CT Abdomen Pelvis w Contrast (05/06/2017 4:28 PM WASTE MACHINE OFFBEARER) Anatomical Region Laterality Modality Abdomen/Pelvis, SUBRAD CT BODY, UMP CT ABDOMEN PELVIS, Computed Tomography RAD CT Specimen (Source) Anatomical Location Collection Method / Collectio n Time Received Time / Laterality Volume Impressions 05/06/2017 5:04 PM WASTE MACHINE OFFBEARER CONCLUSION: 1. ??No PE. 2. ??Elizabeth-en-Y gastric bypass. Small júnior unt of fluid in the excluded stomach, nonspecific. No free air. No bowel obstruction. 3. ??New small pleural effusion. 4. ??Interval splenectomy. 5. ??Unchanged appearance of a fat-conta ining hernia at the esophageal hiatus of the diaphragm. Narrative 05/06/2017 5:04 PM WASTE MACHINE OFFBEARER CTA CHEST PE RUN, CT ABDOMEN PELVIS [...] and 3D reconstructions were performed by the development technologist. Dose reduction techniques were used. IV [...] and 3D reconstructions were performed by the development technologist. Dose reduction techniques were used. IV [...] Pulmonary Embolism w Contrast (05/06/2017 4:20 PM WASTE MACHINE OFFBEARER) Anatomical Region Laterality Modality Chest, SUBRAD CT BODY, UMP CT CHEST Comp uted Tomography Specimen (Source) Anatomical Location Collection Method / Collectio n Time Received Time / Laterality Volume Impressions 05/06/2017 5:04 PM WASTE MACHINE OFFBEARER CONCLUSION: 1. ??No PE. 2. ??Elizabeth-en-Y gastric bypass. Small júnior unt of fluid in the excluded stomach, nonspecific. No free air. No bowel obstruction. 3. ??New small pleural effusion. 4. ??Interval splenectomy. 5. ??Unchanged appearance of a fat-conta ining hernia at the esophageal hiatus of the diaphragm. Narrative 05/06/2017 5:04 PM WASTE MACHINE OFFBEARER CTA CHEST PE RUN, CT ABDOMEN PELVIS [...] and 3D reconstructions were performed by the development technologist. Dose reduction techniques were used. IV [...] and 3D reconstructions were performed by the development technologist. Dose reduction techniques were used. IV [...] Glucose by meter POCT (05/06/2017 2:53 PM WASTE MACHINE OFFBEARER) athologist Signature GLUCOSE BY 196 mg/dL 05/06/2017 [facility] METER POCT 2:53 PM WASTE MACHINE OFFBEARER HOSPITAL POCT RESULTS Comment: Reference Ranges ? [...] specimen 05/06/2017 2:53 PM 018 9:09 (specimen) WASTE MACHINE OFFBEARER PM WASTE MACHINE OFFBEARER Historical Provider LAB - ENTER/EDIT POCT Performing Organization Address [facility]/ZIP Code Phon e Number [facility] POCT RESULTS [address] [place] [address] TYPE AND SCREEN, ADULT (05/06/2017 2:15 PM WASTE MACHINE OFFBEARER) P athologist Signature ABO/RH(D) O POS 05/06/2017 BLOOD BANK 3:09 PM WASTE MACHINE OFFBEARER Antibody Negative Negative 05/06/2017 BLOOD BANK Screen 3:09 PM WASTE MACHINE OFFBEARER Specimen Anatomical Collection Method Collection Time Receive d Time (Source) Location / / Volume Laterality Blood specimen VAD(CVC, PICC) / 05/06/2017 2:15 PM 2:24 (specimen) Unknown WASTE MACHINE OFFBEARER PM WASTE MACHINE OFFBEARER Rj Fontana MD LAB - BLOOD BANK TEST ORDER Performing Organization Address City/State/ZIP Code Phon e Number [facility] BLOOD BANK [address] [facility] [place] [address] BLOOD BANK [address] [place] [address] EKG 12-lead, tracing only (05/06/2017 2:05 PM WASTE MACHINE OFFBEARER) [facility] Method Time Signature Systolic Blood mmHg 05/06/2017 HE RADIANT Pressure 3:22 PM CONVERSION WASTE MACHINE OFFBEARER Diastolic Blood mmHg 05/06/2017 HE RADIANT Pressure 3:22 PM CONVERSION WASTE MACHINE OFFBEARER Ventricular Rate 76 BPM 05/06/2017 HE RADIANT 3:22 PM CONVERSION WASTE MACHINE OFFBEARER Atrial Rate 76 BPM 05/06/2017 HE RADIANT 3:22 PM CONVERSION WASTE MACHINE OFFBEARER IN Interval 190 ms 05/06/2017 HE RADIANT 3:22 PM CONVERSION WASTE MACHINE OFFBEARER QRS Duration 104 ms 05/06/2017 HE RADIANT 3:22 PM CONVERSION WASTE MACHINE OFFBEARER QT 384 ms 05/06/2017 HE RADIANT 3:22 PM CONVERSION WASTE MACHINE OFFBEARER QTc 432 ms 05/06/2017 HE RADIANT 3:22 PM CONVERSION WASTE MACHINE OFFBEARER P Mcpherson 18 degrees 05/06/2017 HE RADIANT 3:22 PM CONVERSION WASTE MACHINE OFFBEARER R AXIS -49 degrees 05/06/2017 HE RADIANT 3:22 PM CONVERSION WASTE MACHINE OFFBEARER T Mcpherson -16 degrees 05/06/2017 HE RADIANT 3:22 PM CONVERSION WASTE MACHINE OFFBEARER Interpretation Sinus rhythm 05/06/2017 HE RADIANT ECG Left anterior fascicular block 3:22 PM CONVERSION Abnormal ECG WASTE MACHINE OFFBEARER When compared with ECG of 08-APR-2017 12:55, No significant change was found Confirmed by AISSATOU ??, CATY LOC:JN ([id number]) on 05/06/2017 3:22:26 PM Specimen Anatomical Collection Method Collection Time Receive d Time (Source) Location / / Volume Laterality 05/06/2017 2:05 PM 8 3:22 WASTE MACHINE OFFBEARER PM WASTE MACHINE OFFBEARER Rj Fontana MD ECG ORDERABLES Performing Organization Address City/State/ZIP Code Phon e Number HE CARDIOLOGY CONVERSION HE RADIANT CONVERSION EXTRA APPLE TOP TUBE (05/06/2017 1:42 PM WASTE MACHINE OFFBEARER) Specimen Anatomical Collection Method Collection Time Receive d Time (Source) Location / / Volume Laterality Blood specimen VAD(CVC, PICC) / 05/06/2017 1:42 PM 1:47 (specimen) Unknown WASTE MACHINE OFFBEARER PM WASTE MACHINE OFFBEARER Rj Fontana MD LAB - BLOOD ORDERABLES (ABNORMAL) CBC WITH PLATELETS AND DIFFERENTIAL (05/06/2017 1:42 PM WASTE MACHINE OFFBEARER) [facility] Method Time Signature WBC 14.9 (H) 4.0 - 05/06/2017 HEALTH 11.0 2:27 PM WASTE MACHINE OFFBEARER [facility] LAB[facility]ATORY RBC Count 3.35 (L) 4.40 - 05/06/2017 HEALTH 6.20 2:27 PM WASTE MACHINE OFFBEARER [facility] LAB[facility] Hemoglobin 9.3 (L) 14.0 - 05/06/2017 HEALTH 18.0 g/dL 2:27 PM [facility] LABORATORY Hematocrit 28.3 (L) 40.0 - 05/06/2017 HEALTH 54.0 % 2:27 PM [facility] LABORATORY MCV 85 80 - 100 05/06/2017 HEALTH fL 2:27 PM [facility] LAB[facility] MCH 27.8 27.0 - 05/06/2017 HEALTH 34.0 pg 2:27 PM [facility] MCHC 32.9 32.0 - 05/06/2017 HEALTH 36.0 g/dL 2:27 PM [facility] LAB[facility] RDW 14.4 11.0 - 05/06/2017 HEALTH 14.5 % 2:27 PM [facility] Platelet Count 381 140 - 440 05/06/2017 [facility]/ 2:27 PM [facility] Mean Platelet 11.2 8.5 - 05/06/2017 HEALTH Volume 12.5 fL 2:27 PM [facility] % Neutrophils 76 (H) 50 - 70 % 05/06/2017 HEALTH 2:27 PM WASTE MACHINE OFFBEAR[facility] % Lymphocytes 12 (L) 20 - 40 % 05/06/2017 [facility] 2:27 PM [facility] % Monocytes 12 (H) 2 - 10 % 05/06/2017 HEALTH 2:27 PM WASTE MACHINE OFFBEARER [facility] % Eosinophils 0 0 - 6 % 05/06/2017 HEALTH 2:27 PM [facility] LABORAT[facility] % Basophils 1 0 - 2 % 05/06/2017 HEALTH 2:27 PM WASTE MACHINE OFFBEARER [facility] Absolute 11.1 (H) 2.0 - 7.7 05/06/2017 [facility] Neutrophils thou/uL 2:27 PM WASTE MACHINE OFFBEARER [facility] LAB[facility] Absolute 1.7 0.8 - 4.4 05/06/2017 [facility] Lymphocytes thou/uL 2:27 PM WASTE MACHINE OFFBEARER [facility] Absolute 1.8 (H) 0.0 - 0.9 05/06/2017 HEALTH Monocytes thou/uL 2:27 PM WASTE MACHINE OFFBEARER [facility] LABOR[facility]ORY Eosinophils 0.0 0.0 - 0.4 05/06/2017 HEALTH Absolute thou/uL 2:27 PM [facility] LAB[facility]AT[facility] Absolute 0.1 0.0 - 0.2 05/06/2017 [facility] Basophils thou/uL 2:27 PM WASTE MACHINE OFFBEARER [facility] Specimen Anatomical Collection Method Collection Time Receive d Time (Source) Location / / Volume Laterality Blood specimen VAD(CVC, PICC) / 05/06/2017 1:42 PM 1:47 (specimen) Unknown WASTE MACHINE OFFBEARER PM WASTE MACHINE OFFBEARER Rj Fontana MD LAB - BLOOD ORDERABLES Performing Organization Address City/[facility] Phon [place] [address] [address] [facility] Troponin I (05/06/2017 1:42 PM WASTE MACHINE OFFBEARER) P athologist Signature Troponin I <0.01 0.00 - 0.29 05/06/2017 [facility] ng/mL 2:41 PM [facility] Specimen Anatomical Collection Method Collection Time Receive d Time (Source) Location / / Volume Laterality Blood specimen VAD(CVC, PICC) / 05/06/2017 1:42 PM 1:47 (specimen) Unknown WASTE MACHINE OFFBEARER PM WASTE MACHINE OFFBEARER Rj Fontana MD LAB - BLOOD ORDERABLES Performing Organization Address City/State/ZIP Code Phon [place] Number [place] [address] [phone] [address] [facility] LAB[facility]ATORY (ABNORMAL) Magnesium (05/06/2017 1:42 PM WASTE MACHINE OFFBEARER) P athologist Signature Magnesium 1.2 (L) 1.8 - 2.6 05/06/2017 HEALTH mg/dL 2:41 PM WASTE MACHINE OFFBEARER [facility] LABORATORY Specimen Anatomical Collection Method Collection Time Receive d Time (Source) Location / / Volume Laterality Blood specimen VAD(CVC, PICC) / 05/06/2017 1:42 PM 1:47 (specimen) Unknown WASTE MACHINE OFFBEARER PM WASTE MACHINE OFFBEARER Rj Fontana MD LAB - BLOOD ORDERABLES Performing Organization Address [facility] Phon [place] [address] [address] [facility] LAB[facility]ORY (ABNORMAL) Comprehensive metabolic panel (05/06/2017 1:42 PM WASTE MACHINE OFFBEARER) Patholo gist Method Time Signature Sodium 136 136 - 145 05/06/2017 HEALTH mmol/L 2:41 PM [facility] Potassium 3.5 3.5 - 5.0 05/06/2017 HEALTH mmol/L 2:41 PM [facility] Chloride 102 98 - 107 05/06/2017 HEALTH mmol/L 2:41 PM [facility] Carbon Dioxide 23 22 - 31 05/06/2017 HEALTH (CO2) mmol/L 2:41 PM [facility] Anion Gap 11 5 - 18 05/06/2017 HEALTH mmol/L 2:41 PM [facility] Glucose 171 (H) 70 - 125 05/06/2017 HEALTH mg/dL 2:41 PM [facility] Urea Nitrogen 15 8 - 28 05/06/2017 [facility] mg/dL 2:41 PM [facility] Creatinine 0.89 0.70 - 05/06/2017 [facility] 1.30 mg/dL 2:41 PM [facility] GFR Estimate If >60 >60 05/06/2017 [facility] Black mL/min/1.7 2:[address] LABORATORY GFR Estimate >60 >60 05/06/2017 [facility] mL/min/1.7 2:[address] LABORATORY Bilirubin Total 0.9 0.0 - 1.0 05/06/2017 [facility] mg/dL 2:41 PM [facility] Calcium 9.0 8.5 - 10.5 05/06/2017 [facility] mg/dL 2:41 PM [facility] Protein Total 6.2 6.0 - 8.0 05/06/2017 [facility] g/dL 2:41 PM [facility] Albumin 2.7 (L) 3.5 - 5.0 05/06/2017 [facility] g/dL 2:41 PM [facility] Alkaline 77 45 - 120 05/06/2017 [facility] Phosphatase U/L 2:41 PM [facility] AST 28 0 - 40 U/L 05/06/2017 [facility] 2:41 PM [facility] ALT 41 0 - 45 U/L 05/06/2017 [facility] 2:41 PM [facility] Specimen Anatomical Collection Method Collection Time Receive d Time (Source) Location / / Volume Laterality Blood specimen VAD(CVC, PICC) / 05/06/2017 1:42 PM 1:47 (specimen) Unknown WASTE MACHINE OFFBEARER PM WASTE MACHINE OFFBEARER Narrative [facility] LAB - 05/06/2017 2:41 PM WASTE MACHINE OFFBEARER Fasting Glucose reference range is 70-99 mg/dL per [place] [employer] (ADA) addie rojas. Rj Fontana MD LAB - BLOOD ORDERABLES Performing Organization Address City/State/ZIP Code Ph[place] [address] [id number] [place] [place] [address]S LABORATORY [facility] [address] [place] [address], [facility] documented in this encounter Visit Diagnoses Diagnosis Shortness of breath Pleural effusion, left Unspecified pleural effusion Mild anemia Anemia, unspecified Hypomagnesemia Disorders of magnesium metabolism documented in this encounter Care Teams Sap Pi Developer Relationship Specialty Start Date End Date Benjamin Henao MD PCP - General Internal Medicine 07/24/[address] [place] [id number] documented as of this encounter
--- OUTSIDE RECORDS SUMMARY | 2022-03-12 14:48 | XMS_ITS | Encounter Summary ---
:1945 Author Organization [place] Address [address] [place] [address] Care Team Providers Name Role Phone Benjamin Henao MD Primary Care Provider Reason for Visit Reason Comments Weight Problem Post op f/u phone visit Encounter Details Date Type Department Care Team Description 05/07/2017 Communication - [facility] Gayatri Weber Weight Problem ([facility] and Yaquelin RN op f/u ph one visit) Bariatrics Care 17 [facility] [address] [place] [address] Social History Tobacco Use Types [...] on filedocumented in this encounter Care Teams Office Machine Embossograph Operator Relationship Specialty Start Date End Date Benjamin Henao MD PCP - General Internal Medicine 07/24/16 [address] [place] [address] documented as of this encounter
--- OUTSIDE RECORDS SUMMARY | 2022-03-12 14:49 | XMS_ITS | Encounter Summary ---
:1945 Author Organization [place] Address [address] [place] [address] Care Team Providers Name Role Phone Benjamin Henao MD Primary Care Provider Encounter Details Date Type Department Care Team Description 10/24/2016 Communication - [facility] aSntos Krishna, [facility] and MD Bariatrics Care [address] [place] [id number] [place] [address] [phone] [address] (Work) [phone] Social History Tobacco Use Types Packs/Day Years [...] on filedocumented in this encounter Care Teams Dredge Captain Relationship Specialty Start Date End Date Benjamin Henao MD PCP - General Internal Medicine 07/24/16 [address] [place] [address] documented as of this encounter
--- OUTSIDE RECORDS SUMMARY | 2022-03-12 14:49 | XMS_ITS | Encounter Summary ---
:1945 Author Organization [place] Address [address] [place] [address] Care Team Providers Name Role Phone Benjamin Henao MD Primary Care Provider Reason for Visit Reason Comments Nutrition Counseling Encounter Details Date Type Department Care Team Description 12/07/2016 Office Visit - [facility] Provider, Obesity, morbid, BMI 50 or higher (H); [facility] and Historical Nutrition al counseling Bariatrics Care 17 [facility] [address] [place] [address] Social History Tobacco Use Types [...] mass index is 60.01 kg/(m^2). Calculated RMR ([place]-St Jeor equation): 2035 calories Progress made since [...] iron 2x/day, calcium citrate 500-600 mg 2x/day, 1313-5792 mcg of Sublingual B-12 daily, and 5000 [...] BMI 60. Intervention: Discussion: 1. Reviewed the [place] to Bariatric Success handout. 2. Reviewed lean [...] distractions of tv/email/cell phone. Handouts provided: Pt. [facility] Bariat[facility] Patient Handbook Monitor/Evaluation: Pt understands [...] counseling documented in this encounter Care Teams Trapper Animal Relationship Specialty Start Date End Date Benjamin Henao MD PCP - General Internal Medicine 07/24/[address] [place] [address] documented as of this encounter
--- OUTSIDE RECORDS SUMMARY | 2022-03-12 14:49 | XMS_ITS | Encounter Summary ---
:1945 Author Organization [place] Address [address] [place] [address] Care Team Providers Name Role Phone Benjamin Henao MD Primary Care Provider Reason for Visit Reason Comments Weight Problem Initial Consult Encounter Details Date Type Department Care Team Description 02/05/2017 Office Visit - [facility] Naresh Grant MD Type 2 diabetes mellitus (H); [facility] [place] Obstructive sleep apnea; and Bariatrics RD Gastroesophageal reflux disease without esophagitis; [place], [place] Morbid obesity (H); [address] [address] Essential hypertension [address] [place], [place] (Work) [address] Social History Tobacco Use [...] majority of this visit. Naresh Grant MD [facility] Department of Surgery documented in this encounter [...] hypertension documented in this encounter Care Teams Front Desk Administrator Relationship Specialty Start Date End Date Benjamin Henao MD PCP - General Internal Medicine 07/24/[address] [place] [address] documented as of this encounter
--- OUTSIDE RECORDS SUMMARY | 2022-03-12 14:49 | XMS_ITS | Encounter Summary ---
:1945 Author Organization [place] Address [address] [place] [address] Care Team Providers Name Role Phone Benjamin Henao MD Primary Care Provider Encounter Details Date Type Department Care Team Description 01/07/2017 Office Visit - [facility] [place] Morbid obesity (H) [facility] and Kolby, PhD Bariatrics Care [facility] AND [address] [place] [address] [address] [facility] 200 [address] [place], [place] [phone] [id number] Social History Tobacco Use Types Packs/Day Years [...] was referred by Naresh Grant MD at [facility] to determine [...] surgery should be done in collaboration with [facility] clinical staff. Current Treatment Plan and Aftercare Plan: This patient agrees to continue to prepare for surgery and to participate in aftercare as directed by [facility] clinical staff. [...] later. He was having 1-2 cups of Mexican coffee and 64 ounces of water on [...] followed medically by Benjamin Henao MD at [facility] who reportedly supports the patient's candidacy for bariatric surgery. Allergies/Sensitivities: Lisinopril and cats Complications, Trauma, Unusual Weight: Denied Head Trauma, Concussion, Extremely High Fevers, Seizures: Denied Thyroid Function: Reportedly normal. Hospitalizations and Surgeries: [place] teeth Current Medications: Current Outpatient Prescriptions: ??? [...] This patient was born and raised in [place]. His father at age 68 in [...] This patient graduated from high school in [place] in 1963. He received his bachelor's degree in chemistry and biology from [employer]. He receives his medical degree from [employer] in 1976. 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 Current Living Situation, Partner, and Children: This patient has been for 45 years and is in a happy and supportive relationship. He has 2 sons (41 and 34) and a daughter (38). He lives with his and son. His support includes his and children. Anabaptist Orientation/Spiritual Support: Raised [employer] now spiritual. History: Denied Two Year Goals: [...] in the least. The [place] Multiphasic Personality Inwlpefxo-5-Onmxqgphmqnr Form (MMPI-2-RF) was responded to in an [...] obesity documented in this encounter Care Teams Patient Scheduling Manager Relationship Specialty Start Date End Date Benjamin Henao MD PCP - General Internal Medicine 07/24/16 [address] [place] [address] documented as of this encounter
--- OUTSIDE RECORDS SUMMARY | 2022-03-12 14:49 | XMS_ITS | Encounter Summary ---
:1945 Author Organization [place] Address [address] [place] [address] Care Team Providers Name Role Phone Benjamin [...] on filedocumented in this encounter Care Teams Statistical Financial Analyst Relationship Specialty Start Date End Date Benjamin Henao MD PCP - General Internal Medicine 07/24/[address] [place] [address] Benjamin Henao MD Assigned PCP 10/05/[address] [place] [address] documented as of this encounter
--- OUTSIDE RECORDS SUMMARY | 2022-03-12 14:49 | XMS_ITS | Encounter Summary ---
:1945 Author Organization [place] Address [address] [place] [address] Care Team Providers Name Role Phone Benjamin Henao MD Primary Care Provider Reason for Visit Reason Comments Nutrition Counseling Encounter Details Date Type Department Care Team Description 11/05/2016 Office Visit - [facility] Provider, Obesity, morbid, BMI 40.0- 49.9 (H); [facility] and Historical Nutrition al counseling Bariatrics Care [address] [place] [address] [address] [place] [address] Social History Tobacco Use Types [...] play with grand children. Pt comes from rom[place], in which there is a dietary [...] mass index is 48.45 kg/(m^2). Estimated RMR (Weakley-St Jeor equation): 2143 calories Food allergies, intolerances, and christian customs: None. Diabetes: Pt reports taking insulin daily. Vitamins Educated on post-op vitamin regimen: Multi Vit + iron 2x/day, calcium citrate 500-600 mg 2x/day, 8657-6493 mcg of Sublingual B-12 daily, and 5000 [...] vegetable, starch (20g) HS Snack: cheese with romansh bread, fruit (8g) Per Diet recall estimated protein: 60-70 grams/day Typical Snacks: Pt reports liking fruit and cheese. Fats used at home: olive oil Fried Foods: 0 times per week Meals per week away from home: 0-1x/week Sit down: none Fast Food: none Take Out: none Delivery: pizza Buffet: none Cafeteria: none Specialty Coffee: none (Pt drinks equatorial guinean coffee) Ice Cream/FrozenYogurt/Bakery: none Comments: none Recommended [...] Intervention Discussion: 1. Educated pt on the [place] to Bariatric Success handout. 2. Reviewed lean [...] without distractions of tv/email/cell phone. Handouts Provided: [place] to Bariatric Success Bariatric Plate Food journal [...] progression, give review of surgery process. Review [place] to Bariatric Success Check Understanding Quiz Possible final visit Time In: 1:30pm Time Out: 2:15pm ABN signed: Yes documented in this encounter Plan of Treatment Not on filedocumented as of this encounter Visit Diagnoses Diagnosis Obesity, morbid, BMI 40.0-49.9 (H) Nutritional counseling documented in this encounter Care Teams Automated Teller Manager Relationship Specialty Start Date End Date Benjamin Henao MD PCP - General Internal Medicine 07/24/[address] [place] [address] documented as of this encounter
--- OUTSIDE RECORDS SUMMARY | 2022-03-12 14:49 | XMS_ITS | Encounter Summary ---
:1945 Author Organization [place] Address [address] [place] [address] Care Team Providers Name Role Phone Benjamin Henao MD Primary Care Provider Reason for Visit Reason Comments Weight Problem Pt Ed Encounter Details Date Type Department Care Team Description 03/06/2017 [facility]ur[facility] Bariatrics Care [address] [place] [address] 140 [place] [phone] Social History Tobacco Use Types Packs/Day Years [...] and the patient is aware and will flower picker to be ready. He is already taking omeprazole. Lorna Krishnamurthy, RN, CBN REPAIRER documented in this encounter Plan of Treatment Not on filedocumented as of this encounter Visit Diagnoses Diagnosis Pre-operative clearance Preoperative examination, unspecified documented in this encounter Care Teams Press Machine Feeder Relationship Specialty Start Date End Date Benjamin Henao MD PCP - General Internal Medicine 07/24/[address] [place] [address] documented as of this encounter
--- OUTSIDE RECORDS SUMMARY | 2022-03-12 14:49 | XMS_ITS | Encounter Summary ---
:1945 Author Organization [place] Address [address] [place] [address] Care Team Providers Name Role Phone Benjamin Henao MD Primary Care Provider Reason for Visit Reason Comments Nutrition Counseling Encounter Details Date Type Department Care Team Description 04/17/2017 [facility] Bariatric surgery status; [facility] Clinic and Obesity, morbid, BMI 40.0-49.9 (H); [facility]rics [facility] [address] [address] Social History Tobacco Use Types [...] 143.8 kg (317 lb) 04/17/2017 1:00 PM MINERAL TECHNOLOGIST Height 172.7 cm (5' 8) 04/17/2017 1:00 PM MINERAL TECHNOLOGIST Body Mass Index 48.2 04/17/2017 1:00 PM MINERAL TECHNOLOGIST documented in this encounter Progress Notes Historical [...] counseling documented in this encounter Care Teams Engine Mechanic Relationship Specialty Start Date End Date Benjamin Henao MD PCP - General Internal Medicine 07/24/16 [address] [place] [phone] documented as of this encounter
--- OUTSIDE RECORDS SUMMARY | 2022-03-12 14:49 | XMS_ITS | Encounter Summary ---
:1945 Author Organization [place] Address [address] [place] [address] Care Team Providers Name Role Phone Benjamin Henao MD Primary Care Provider Reason for Visit Reason Comments Weight Problem Pt Ed Encounter Details Date Type Department Care Team Description 04/17/2017 [facility] Gayatri Weber, Surgery Clinic and RN Bariatrics Care [address] [address] Social History Tobacco Use Types [...] 143.8 kg (317 lb) 04/17/2017 3:00 PM ARCHITECTURAL INSPECTOR Height 172.7 cm (5' 8) 04/17/2017 3:00 PM ARCHITECTURAL INSPECTOR Body Mass Index 48.2 04/17/2017 3:00 PM ARCHITECTURAL INSPECTOR documented in this encounter Progress Notes [...] pre-op H&P and testing done 04/08/2017 at [facility]. Gayatri Weber RN, Critical access hospital Surgery and Bariatric Care P [phone] F [phone] ITECTURAL INSPECTOR documented in this encounter Plan of Treatment Not on filedocumented as of this encounter Visit Diagnoses Not on filedocumented in this encounter Care Teams Community Service Director Relationship Specialty Start Date End Date Benjamin Henao MD PCP - General Internal Medicine 07/24/[address] [place] [address] documented as of this encounter
--- OUTSIDE RECORDS SUMMARY | 2022-03-12 14:49 | XMS_ITS | Encounter Summary ---
:1945 Author Organization [place] Address [address] [place] [address] Care Team Providers Name Role Phone Benjamin Henao MD Primary Care Provider Reason for Visit Reason Comments Diabetes A1c follow up, foot exam Labs Only lab for upcoming surgery - n ot yet scheduled Encounter Details Date Type Department Care Team Description 10/19/2016 Office Visit - [facility] Benjamin Valentin, Type 2 diabetes mellitus (H); [facility] Shortness of breath; [facility] [address] [facility] Obesity, Class III, BMI 40-4 9.9 (morbid obesity) (H) [address] [facility] [address] [place] [address] Social History Tobacco Use Types Packs/Day [...] 10/19/2016 [facility] % 11:14 AM CDT [facility] Specimen Anatomical Collection Method / Collection Time Recei nona Time (Source) Location / Volume Laterality Blood specimen VENOUS STRUCTURE / Venipuncture / 10/19/2016 10:51 0 10/19/2016 (specimen) Unknown Unknown AM CDT 10:51 AM CDT Santos Krishna MD LAB - BLOOD ORDERABLES Performing Organization Address City/State/ZIP Code Phon e Number [id number] [place] [address] 55[address] [facility] [address] [place], [place] [address] CLINIC LABORATORY (ABNORMAL) Lipid Profile (10/19/2016 10:51 AM CDT) [facility] Method Time Signature Triglycerides 110 <=149 10/19/2016 HEALTH mg/dL 3:41 PM CDT [facility] Cholesterol 141 <=199 10/19/2016 HEALTH mg/dL 3:41 PM CDT [facility] LDL Cholesterol 81 <=129 10/19/2016 HEALTH Calculated mg/dL 3:41 PM CDT [facility] Direct Measure HDL 38 (L) >=40 10/19/2016 HEALTH mg/dL 3:41 PM CDT [facility] Patient Fasting > Yes 10/19/2016 HEALTH 8hrs? 3:41 PM CDT [facility] Specimen Anatomical Collection Method / Collection Time Recei nona Time (Source) Location / Volume Laterality Blood specimen Venipuncture / 10/19/2016 10:51 017 2:55 (specimen) Unknown AM CDT PM CDT Santos Krishna MD LAB - BLOOD ORDERABLES Performing Organization Address City/State/ZIP Code Phon e Number [facility] [place] [address] [address] [facility] documented in this encounter Visit Diagnoses Diagnosis Type 2 diabetes mellitus (H) Type II or unspecified type diabetes mando litus without mention of complication, not stated as uncontrolled Shortness of breath Obesity, Class III, BMI 40-49.9 (morbid obesity) (H) Morbid obesity documented in this encounter Care Teams Sas Architect Relationship Specialty Start Date End Date Benjamin Henao MD PCP - General Internal Medicine 07/24/16 [address] [place] [address] documented as of this encounter
--- OUTSIDE RECORDS SUMMARY | 2022-03-12 14:49 | XMS_ITS | Encounter Summary ---
:1945 Author Organization [place] Address [address] [place] [address] Care Team Providers Name Role Phone Benjamin Henao MD Primary Care Provider Encounter Details Date Type Department Care Team Description 04/08/2017 [facility] [address] [place] [address] Social History Tobacco Use Types [...] on filedocumented in this encounter Care Teams Windows Architect Relationship Specialty Start Date End Date Benjamin Henao MD PCP - General Internal Medicine 07/24/16 [address] [place], [place] [phone] documented as of this encounter
--- OUTSIDE RECORDS SUMMARY | 2022-03-12 14:49 | XMS_ITS | Encounter Summary ---
:1945 Author Organization [place] Address [address] [place] [address] Care Team Providers Name Role Phone Benjamin Henao MD Primary Care Provider Encounter Details Date Type Department Care Team Description 02/05/2017 [facility] Hortensia Mcnamara Surgery Clinic and Bariatrics Care 17 [facility] 140 [place] [address] Social History Tobacco Use Types [...] on filedocumented in this encounter Care Teams Block Splitter Operator Relationship Specialty Start Date End Date Benjamin Henao MD PCP - General Internal Medicine 07/24/16 [address] [place] [address] documented as of this encounter
--- OUTSIDE RECORDS SUMMARY | 2022-03-12 14:49 | XMS_ITS | Encounter Summary ---
:1945 Author Organization [place] Address [address] [place] [address] Care Team Providers Name Role Phone Benjamin Henao MD Primary Care Provider Encounter Details Date Type Department Care Team Description 10/24/2016 [facility] Santos Krishna, Low papito min B12 level; [facility] and Hypomagnesemia; Bariatrics Care [address] [place] [address] Low vitamin D level [place] [address] [address] [facility] [address] [place] [address] [phone] [address] (Work) [phone] Social History Tobacco Use Types Packs/Day Years [...] level documented in this encounter Care Teams Ciaio Counter Molder Relationship Specialty Start Date End Date Benjamin Henao MD PCP - General Internal Medicine 07/24/16 [address] [place] [address] documented as of this encounter
--- OUTSIDE RECORDS SUMMARY | 2022-03-12 14:49 | XMS_ITS | Encounter Summary ---
:1945 Author Organization [place] Address [address] [place] [address] Care Team Providers Name Role Phone Benjamin Henao MD Primary Care Provider Encounter Details Date Type Department Care Team Description 11/05/2016 Office Visit - [facility] [place] Morbid obesity (H) [facility] Clinic and Kolby, PhD Bariatrics Care [facility] AND [address] [place] [address] [address] [facility] 200 [address] [place], [place] [phone] Social History Tobacco Use Types Packs/Day Years [...] obesity documented in this encounter Care Teams Multimedia Teacher Relationship Specialty Start Date End Date Benjamin Henao MD PCP - General Internal Medicine 07/24/[address] [place] [address] documented as of this encounter
--- OUTSIDE RECORDS SUMMARY | 2022-03-12 14:49 | XMS_ITS | Encounter Summary ---
:1945 Author Organization [facility] Address [address] [place] [address] Care Team Providers Name Role Phone Benjamin Henao MD Primary Care Provider Encounter Details Date Type Department Care Team Description 05/01/2017 - Hospital Encounter ZZ [id number] Naresh Grant MD Type 2 diabetes 05/04/2017 MS/BARIATRIC/RENAL [address] [place] [address] RD mellitus with [address], [address] [address] unspecified [place], [place] [phone] term insulin use [phone] (Work) status (H) [phone] Social History Tobacco Use Types Packs/Day Years [...] (303 lb 6.4 oz) 05/03/2017 11:06 AM AGRICULTURE INSPECTOR Height 172.7 cm (5' 8) 05/01/2017 6:19 AM AGRICULTURE INSPECTOR Body Mass Index 46.13 05/01/2017 6:19 AM AGRICULTURE INSPECTOR documented in this encounter Discharge Summaries Juanita, [...] Discharge Medications: Faith Adames Home Medication Instructions [id number]:[id number] Printed on:05/04/17 1029 Medication Information aspirin 81 [...] 31G 1 mL syringe - [facility] [id number] - dispense 1 case, refill PRN for [...] surgery or until you meet with the truck driver flatbed, you will be on a full liquid [...] are Clean and Dry Myrna Grant PA-C [facility] Surgery [facility] [address] [place], [place] [id number] CULTURE INSPECTOR Bonny, Yadira Kim MD - 05/04/2017 9:54 AM CST [facility] MEDICINE DISCHARGE SUMMARY Primary [...] 31G 1 mL syringe - [facility] [id number] - dispense 1 case, refill PRN for [...] safe. Questions about your anesthetic? Please visit [facility] website ([email or web address]) or call the [facility] nurse line at [phone]. Activity as tolerated Order Comments: Rest when [...] EMR for more detailed significant labs, imaging, campaign consultant notes etc. Total time spent today greater than 35 minutes with greater than 50% of time spent in counseling andcoordination of care. Yadira Draper MD [facility]: CC:Benjamin Henao MD CULTURE INSPECTOR documented in this encounter Medications at Time [...] place discharge orders in Myrna Grant PA-C [phone] [facility] Surgery [facility] [address] [place], [place] [id number] CULTURE INSPECTOR Naresh Grant MD - 05/03/2017 5:40 PM CST Agree with note of fernie Guerrero PA-C. Pt seen and examined. Chart reviewed. Feels well. Voiding on own. Tolerating diet. Probably home tomorrow. Naresh Grant MD [facility] Department of Surgery CULTURE INSPECTOR Yadira Draper MD - 05/03/2017 9:17 AM [...] are unintentional and inherent to the software. CULTURE INSPECTOR Day, Myrna Mascorro PA-C - 05/03/2017 8:56 [...] progressing well. 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 Ok d/c iv fluids. Waiting for better bowel function return. Anticipate home tomorrow. Myrna Grant PA-C [phone] [facility] [address] [place], [place] [id number] CULTURE INSPECTOR Historical Provider - 05/02/2017 2:57 PM CST [...] understanding of all instructions. Gayatri Weber RN, [facility] Surgery [facility] Bariatric Care P [phone] F [phone] CULTURE INSPECTOR Yadira Draper MD - 05/02/2017 11:26 AM [...] are unintentional and inherent to the software. CULTURE INSPECTOR Naresh Grant MD - 05/02/2017 7:22 AM [...] plans for discharge today. Naresh Grant MD [facility] Department of Surgery CULTURE INSPECTOR Yadira Draper MD - 05/01/2017 1:39 PM [...] are unintentional and inherent to the software. CULTURE INSPECTOR Historical Provider - 05/01/2017 6:30 AM CST Pharmacy Note - Admission Medication History Pertinent Provider Information: Prior To Admission (ARTIST RELATIONSHIP MANAGER) med list completed and updated in EMR. ARTIST RELATIONSHIP MANAGER Med List Medication Sig Last Dose [...] Patient was asked about OTC/herbal products specifically. ARTIST RELATIONSHIP MANAGER med list reflects this. Based on the pharmacist???s assessment, the ARTIST RELATIONSHIP MANAGER med list information appears reliable Allergies were reviewed, assessed, and updated with the patient. Patient does not use any multi-dose medications prior to admission. Thank you for the opportunity to participate in the care of this patient. Naresh Ward [facility] 05/01/2017 6:30 AM documented in this encounter H&P Notes Naresh Grant MD - 05/01/2017 7:22 AM CST I have performed an assessment and examined the patient, as necessary, to update the patient's current status that may have changed since the prior History and Physical. 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 18 Greek red rubber Rae was then brought in [...] Implant Name Type Inv. Item Serial No. Driving Instructor Lot No. LRB No. Used Action STAPLE RELOAD ECHELON 60MM 4.1MM GREEN - [id number] - S STAPLING STAPLE RELOAD ECHELON 60MM 4.1MM GREEN - [id number] ETHICON/EN [id number] N/A 2 Implanted STAPLE RELOAD ECHELON 60MM 4.1MM GREEN - [id number] - S STAPLING STAPLE RELOAD ECHELON 60MM 4.1MM GREEN - [id number] ETHICON/EN [id number] N/A 2 Implanted PARKING METER MECHANIC ENDO LIGAMAX 5MM - [id number] - S STAPLING PARKING METER MECHANIC ENDO LIGAMAX 5MM - [id number] ETHICON/EN [id number] N/A 1 Implanted PARKING METER MECHANIC ENDO CLIP 10MM [id number] - S STAPLING PARKING METER MECHANIC ENDO CLIP 10MM ER320 ETHICON/EN [id number] N/A 2 Implanted STAPLE RELOAD ECHELON 60MM 3.6MM BLUE - [id number] - S STAPLING STAPLE RELOAD ECHELON 60MM 3.6MM BLUE - [id number] ETHICON/EN [id number] N/A 1 Implanted STAPLE RELOAD ECHELON 60MM 2.6MM WHITE - [id number] - S STAPLING STAPLE RELOAD ECHELON 60MM 2.6MM WHITE - [id number] ETHICON/EN [id number] N/A 2 Implanted 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 CROSSMATCH RED CELLS Routine 05/05/2017 12:03 Res ults for this AM AGRICULTURE INSPECTOR procedure are i n the results section. CBC WITH PLATELETS Routine 05/04/2017 8:38 AM Res ults for this AND DIFFERENTIAL AGRICULTURE INSPECTOR procedure a re in the results section. GLUCOSE BY METER POCT Routine 05/04/2017 7:10 AM Results for this AGRICULTURE INSPECTOR procedure are i n the results section. GLUCOSE BY METER POCT Routine 05/03/2017 9:28 PM Results for this AGRICULTURE INSPECTOR procedure are i n the results section. GLUCOSE BY METER POCT Routine 05/03/2017 5:09 PM Results for this AGRICULTURE INSPECTOR procedure are i n the results section. LAB RESULT - HIM SCAN 05/03/2017 1:04 PM AGRICULTURE INSPECTOR GLUCOSE BY METER POCT Routine 05/03/2017 11:39 Re sults for this AM AGRICULTURE INSPECTOR procedure are i n the results section. GLUCOSE BY METER POCT Routine 05/03/2017 8:11 AM Results for this AGRICULTURE INSPECTOR procedure are i n the results section. CROSSMATCH RED CELLS STAT 05/03/2017 7:08 AM R esults for this AGRICULTURE INSPECTOR procedure are i n the results section. CROSSMATCH RED CELLS STAT 05/03/2017 7:08 AM R esults for this AGRICULTURE INSPECTOR procedure are i n the results section. GLUCOSE BY METER POCT Routine 05/02/2017 8:25 PM Results for this AGRICULTURE INSPECTOR procedure are i n the results section. GLUCOSE BY METER POCT Routine 05/02/2017 5:09 PM Results for this AGRICULTURE INSPECTOR procedure are i n the results section. GLUCOSE BY METER POCT Routine 05/02/2017 11:41 Re sults for this AM AGRICULTURE INSPECTOR procedure are i n the results section. GLUCOSE BY METER POCT Routine 05/02/2017 8:15 AM Results for this AGRICULTURE INSPECTOR procedure are i n the results section. CBC WITH PLATELETS Routine 05/02/2017 8:07 AM Res ults for this AND DIFFERENTIAL AGRICULTURE INSPECTOR procedure a re in the results section. RENAL PANEL Routine 05/02/2017 8:07 AM Results f or this AGRICULTURE INSPECTOR procedure are i n the results section. MAGNESIUM Routine 05/02/2017 8:07 AM Results f or this AGRICULTURE INSPECTOR procedure are i n the results section. CROSSMATCH RED CELLS Routine 05/02/2017 12:04 Res ults for this AM AGRICULTURE INSPECTOR procedure are i n the results section. CROSSMATCH RED CELLS Routine 05/02/2017 12:04 Res ults for this AM AGRICULTURE INSPECTOR procedure are i n the results section. GLUCOSE BY METER POCT Routine 05/01/2017 9:09 PM Results for this AGRICULTURE INSPECTOR procedure are i n the results section. HEMOGLOBIN Routine 05/01/2017 7:21 PM Results f or this AGRICULTURE INSPECTOR procedure are i n the results section. GLUCOSE BY METER POCT Routine 05/01/2017 5:47 PM Results for this AGRICULTURE INSPECTOR procedure are i n the results section. HEMOGLOBIN STAT 05/01/2017 12:12 Results for this PM AGRICULTURE INSPECTOR procedure are i n the results section. GLUCOSE BY METER POCT Routine 05/01/2017 11:20 Re sults for this AM AGRICULTURE INSPECTOR procedure are i n the results section. XR ABDOMEN PORT 1 Routine 05/01/2017 10:47 Result s for this VIEW AM AGRICULTURE INSPECTOR procedure are i n the results section. GLUCOSE BY METER POCT Routine 05/01/2017 10:05 Re sults for this AM AGRICULTURE INSPECTOR procedure are i n the results section. MAGNESIUM STAT 05/01/2017 10:00 Results for this AM AGRICULTURE INSPECTOR procedure are i n the results section. BLOOD GAS ARTERIAL STAT 05/01/2017 10:00 Resul ts for this AM AGRICULTURE INSPECTOR procedure are i n the results section. BASIC METABOLIC PANEL STAT 05/01/2017 10:00 Re sults for this AM AGRICULTURE INSPECTOR procedure are i n the results section. HEMOGLOBIN STAT 05/01/2017 9:55 AM Results f or this AGRICULTURE INSPECTOR procedure are i n the results section. SURGICAL PATHOLOGY Routine 05/01/2017 9:49 AM Res ults for this EXAM AGRICULTURE INSPECTOR procedure are i n the results section. EXTRA BLUE TOP TUBE Routine 05/01/2017 9:30 AM AGRICULTURE INSPECTOR TYPE AND SCREEN, Routine 05/01/2017 9:30 AM Resul ts for this ADULT AGRICULTURE INSPECTOR procedure are i n the results section. CBC WITH PLATELETS STAT 05/01/2017 9:30 AM Res ults for this AGRICULTURE INSPECTOR procedure are i n the results section. GLUCOSE BY METER POCT Routine 05/01/2017 8:21 AM Results for this AGRICULTURE INSPECTOR procedure are i n the results section. GLUCOSE BY METER POCT Routine 05/01/2017 6:03 AM Results for this AGRICULTURE INSPECTOR procedure are i n the results section. documented in this encounter Results Crossmatch red cells (05/05/2017 12:03 AM AGRICULTURE INSPECTOR) [facility] Method Time Signature Crossmatch Compatible 05/05/2017 [facility] BLOOD 12:03 AM BANK AGRICULTURE INSPECTOR BLOOD [id number] 05/05/2017 [facility] BLOOD EXPIRATION 12:03 AM BANK DATE AGRICULTURE INSPECTOR Unit ABO/RH O Pos 05/05/2017 [facility] BLOOD 12:03 AM BANK AGRICULTURE INSPECTOR Unit Number [id number] 05/05/2017 [facility] BLOOD 12:03 AM BANK AGRICULTURE INSPECTOR Status Released 05/05/2017 [facility] BLOOD 12:03 AM BANK AGRICULTURE INSPECTOR Component Red Blood Cells 05/05/2017 [facility] BLOOD 12:03 AM BANK AGRICULTURE INSPECTOR Product Code [id number] 05/05/2017 [facility] BLOOD 12:03 AM BANK AGRICULTURE INSPECTOR BLOOD TYPE 5100 05/05/2017 [facility] BLOOD 12:03 AM BANK AGRICULTURE INSPECTOR CODING SYSTEM [id number] 05/05/2017 [facility] BLOOD 12:03 AM BANK AGRICULTURE INSPECTOR Specimen (Source) Anatomical Location Collection Method / Collectio n Time Received Time / Laterality Volume Derian Yeager MD LAB - BLOOD BANK PRODUCT ORD ER Performing Organization Address City/State/ZIP Code Phon e Number O BLOOD BANK [address] [place] [address] BLOOD BANK [address] [place] [address] Crossmatch red cells (05/05/2017 12:03 AM AGRICULTURE INSPECTOR) [facility] Method Time Signature Crossmatch Compatible 05/05/2017 [facility] BLOOD 12:03 AM BANK AGRICULTURE INSPECTOR BLOOD [id number] 05/05/2017 [facility] BLOOD EXPIRATION 12:03 AM BANK DATE AGRICULTURE INSPECTOR Unit ABO/RH O Pos 05/05/2017 [facility] BLOOD 12:03 AM BANK AGRICULTURE INSPECTOR Unit Number [id number] 05/05/2017 [facility] BLOOD 12:03 AM BANK AGRICULTURE INSPECTOR Status Released 05/05/2017 [facility] BLOOD 12:03 AM BANK AGRICULTURE INSPECTOR Component Red Blood Cells 05/05/2017 [facility] BLOOD 12:03 AM BANK AGRICULTURE INSPECTOR Product Code [id number] 05/05/2017 [facility] BLOOD 12:03 AM BANK AGRICULTURE INSPECTOR BLOOD TYPE 5100 05/05/2017 BLOOD 12:03 AM BANK AGRICULTURE INSPECTOR CODING SYSTEM [id number] 05/05/2017 BLOOD 12:03 AM BANK AGRICULTURE INSPECTOR Specimen (Source) Anatomical Location Collection Method / Collectio n Time Received Time / Laterality Volume Derian Yeager MD LAB - BLOOD BANK PRODUCT ORD ER Performing Organization Address City/State/ZIP Code Phon e Number [facility] BLOOD BANK [address] [place] [address] BLOOD BANK [address] [place] [address] (ABNORMAL) CBC WITH PLATELETS AND DIFFERENTIAL (05/04/2017 8:38 AM AGRICULTURE INSPECTOR) [facility] Method Time Signature WBC 11.7 (H) 4.0 - 05/04/2017 HEALTH 11.0 8:46 AM AGRICULTURE INSPECTOR [facility]/ [facility] RBC Count 3.26 (L) 4.40 - 05/04/2017 HEALTH 6.20 8:46 AM AGRICULTURE INSPECTOR [facility]ITALDotProductst. [facility] Hemoglobin 9.0 (L) 14.0 - 05/04/2017 HEALTH 18.0 g/dL 8:46 AM AGRICULTURE INSPECTOR [facility]ITALAppy [facility]NOR[facility] Hematocrit 28.7 (L) 40.0 - 05/04/2017 HEALTH 54.0 % 8:46 AM AGRICULTURE INSPECTOR [facility]ITALDotProduct [facility] MCV 88 80 - 100 05/04/2017 HEALTH fL 8:46 AM AGRICULTURE INSPECTOR [facility] MCH 27.6 27.0 - 05/04/2017 HEALTH 34.0 pg 8:46 AM AGRICULTURE INSPECTOR [employer] MCHC 31.4 (L) 32.0 - 05/04/2017 HEALTH 36.0 g/dL 8:46 AM AGRICULTURE INSPECTOR [facility]ITALAppy PieNORTHER[facility] RDW 14.6 (H) 11.0 - 05/04/2017 HEALTH 14.5 % 8:46 AM AGRICULTURE INSPECTOR [employer]'[facility] Platelet Count 209 140 - 440 05/04/2017 [facility]/uL 8:46 AM AGRICULTURE INSPECTOR [employer] [facility] Mean Platelet 11.0 8.5 - 05/04/2017 HEALTH Volume 12.5 fL 8:46 AM AGRICULTURE INSPECTOR [employer] [facility] % Neutrophils 70 50 - 70 % 05/04/2017 [facility] 8:46 AM [facility] [employer] [facility] % Lymphocytes 17 (L) 20 - 40 % 05/04/2017 [facility] 8:46 AM [facility]IT[facility] [employer] LAB[facility] % Monocytes 13 (H) 2 - 10 % 05/04/2017 [facility] 8:46 AM [facility] [employer] LABORATORY % Eosinophils 0 0 - 6 % 05/04/2017 [facility] 8:46 AM [facility] [employer] LABORATORY % Basophils 0 0 - 2 % 05/04/2017 [facility] 8:46 AM [facility] [employer] LABOR[facility]ORY Absolute 8.2 (H) 2.0 - 7.7 05/04/2017 [facility] Neutrophils thou/uL 8:46 AM [facility] Absolute 1.9 0.8 - 4.4 05/04/2017 [facility] Lymphocytes thou/uL 8:46 AM [facility] [employer] [facility] Absolute 1.5 (H) 0.0 - 0.9 05/04/2017 [facility] Monocytes thou/uL 8:46 AM [facility] [employer] [facility] Eosinophils 0.0 0.0 - 0.4 05/04/2017 [facility] Absolute thou/uL 8:46 AM [facility] Absolute 0.1 0.0 - 0.2 05/04/2017 [facility] Basophils thou/uL 8:46 AM [facility] [employer] [facility] Specimen Anatomical Collection Method / Collection Time Recei nona Time (Source) Location / Volume Laterality Blood specimen STRUCTURE OF LEFT Venipuncture / 05/04/2017 8:38 8:41 (specimen) UPPER LIMB / Unknown AM AGRICULTURE INSPECTOR AM AGRICULTURE INSPECTOR Unknown Yadira Draper MD LAB - BLOOD ORDERABLES Performing Organization Address City/State/ZIP Code Phon e [place] [address] [id number] [place] [address] LABORATORY Glucose by meter POCT (05/04/2017 7:10 AM AGRICULTURE INSPECTOR) athologist Signature GLUCOSE BY 151 mg/dL 05/04/2017 [facility] METER POCT 7:10 AM [facility] POCT RESULTS Comment: Reference Ranges ? Age [...] specimen 05/04/2017 7:10 AM 018 7:12 (specimen) [facility] Historical Provider LAB - ENTER/EDIT POCT Performing Organization Address City/State/ZIP Code Phon e Number [facility] POCT RESULTS [address] [place] [address] Glucose by meter POCT (05/03/2017 9:28 PM [facility]) P athologist Signature GLUCOSE BY 161 mg/dL 05/03/2017 [facility] METER POCT 9:28 PM [facility] POCT RESULTS Comment: Reference [...] specimen 05/03/2017 9:28 PM 018 9:34 (specimen) AGRICULTURE INSPECTOR PM AGRICULTURE INSPECTOR Historical Provider LAB - ENTER/EDIT POCT Performing Organization Address City/State/ZIP Code Phon e Number [facility] POCT RESULTS [address] [place] [address] Glucose by meter POCT (05/03/2017 5:09 PM [facility]) athologist Signature GLUCOSE BY 150 mg/dL 05/03/2017 [facility] METER POCT 5:09 PM [facility] POCT RESULTS Comment: Reference Ranges ? Age [...] specimen 05/03/2017 5:09 PM 018 5:11 (specimen) AGRICULTURE INSPECTOR PM AGRICULTURE INSPECTOR Historical Provider LAB - ENTER/EDIT POCT Performing Organization Address City/State/ZIP Code Phon e Number [facility] POCT RESULTS [address] [place] [address] LAB RESULT - HIM SCAN (05/03/2017 1:04 PM AGRICULTURE INSPECTOR) Specimen (Source) Anatomical Location Collection Method / Collectio n Time Received Time / Laterality Volume Narrative This result has an attachment that is no t available. Historical Provider NON-BEAKER LAB TESTING Glucose by meter POCT (05/03/2017 11:39 AM [facility]) P athologist Signature GLUCOSE BY 191 mg/dL 05/03/2017 [facility] METER POCT 11:39 AM [facility] POCT RESULTS Comment: Reference Ranges ? Age [...] Blood specimen 05/03/2017 11:39 8 (specimen) AM AGRICULTURE INSPECTOR 11:41 AM AGRICULTURE INSPECTOR Historical Provider LAB - ENTER/EDIT POCT Performing Organization Address City/State/ZIP Code Phon e Number [facility] POCT RESULTS [address] [place] [address] Glucose by meter POCT (05/03/2017 8:11 AM AGRICULTURE INSPECTOR) athologist Signature GLUCOSE BY 172 mg/dL 05/03/2017 [facility] METER POCT 8:11 AM AGRICULTURE INSPECTOR [facility] POCT RESULTS Comment: Reference Ranges ? [...] specimen 05/03/2017 8:11 AM 018 8:12 (specimen) AGRICULTURE INSPECTOR AM AGRICULTURE INSPECTOR Historical Provider LAB - ENTER/EDIT POCT Performing Organization Address City/[facility]/ZIP [facility] Phon e Number [facility] POCT RESULTS [address] [place] [address] Crossmatch red cells (05/03/2017 7:08 AM AGRICULTURE INSPECTOR) [facility] Method Time Signature Crossmatch Compatible 05/03/2017 [facility] BLOOD 7:08 AM AGRICULTURE INSPECTOR BANK BLOOD [id number] 05/03/2017 [facility] BLOOD EXPIRATION 7:08 AM AGRICULTURE INSPECTOR BANK DATE Unit ABO/RH O Neg 05/03/2017 [facility] BLOOD 7:08 AM AGRICULTURE INSPECTOR BANK Unit Number [id number] 05/03/2017 [facility] BLOOD 7:08 AM AGRICULTURE INSPECTOR BANK Status Released 05/03/2017 [facility] BLOOD 7:08 AM AGRICULTURE INSPECTOR BANK Component Red Blood Cells 05/03/2017 [facility] BLOOD 7:08 AM AGRICULTURE INSPECTOR BANK Product Code [id number] 05/03/2017 [facility] BLOOD 7:08 AM AGRICULTURE INSPECTOR BANK BLOOD TYPE 9500 05/03/2017 [facility] BLOOD 7:08 AM AGRICULTURE INSPECTOR BANK CODING SYSTEM [id number] 05/03/2017 [facility] BLOOD 7:08 AM AGRICULTURE INSPECTOR BANK Specimen (Source) Anatomical Location Collection Method / Collectio n Time Received Time / Laterality Volume Derian Yeager MD LAB - BLOOD BANK PRODUCT ORD ER Performing Organization Address [facility]/ZIP [facility] Phon e Number [facility] BLOOD BANK [address] [place] [address] [facility] BLOOD BANK [address] [place] [address] Crossmatch red cells (05/03/2017 7:08 AM AGRICULTURE INSPECTOR) [facility] Method Time Signature Crossmatch Compatible 05/03/2017 [facility] BLOOD 7:08 AM AGRICULTURE INSPECTOR BANK BLOOD [id number] 05/03/2017 [facility] BLOOD EXPIRATION 7:08 AM AGRICULTURE INSPECTOR BANK DATE Unit ABO/RH O Neg 05/03/2017 [facility] BLOOD 7:08 AM AGRICULTURE INSPECTOR BANK Unit Number [id number] 05/03/2017 [facility] BLOOD 7:08 AM AGRICULTURE INSPECTOR BANK Status Released 05/03/2017 [facility] BLOOD 7:08 AM AGRICULTURE INSPECTOR BANK Component Red Blood Cells 05/03/2017 [facility] BLOOD 7:08 AM AGRICULTURE INSPECTOR BANK Product Code [id number] 05/03/2017 [facility] BLOOD 7:08 AM AGRICULTURE INSPECTOR BANK BLOOD TYPE 9500 05/03/2017 [facility] BLOOD 7:08 AM AGRICULTURE INSPECTOR BANK CODING SYSTEM [id number] 05/03/2017 [facility] BLOOD 7:08 AM AGRICULTURE INSPECTOR BANK Specimen (Source) Anatomical Location Collection Method / Collectio n Time Received Time / Laterality Volume Derian Yeager MD LAB - BLOOD BANK PRODUCT ORD ER Performing Organization Address City/State/ZIP Code Phon e Number [facility] BLOOD BANK [address] [place] [address] BLOOD BANK [address] [place] [address] Glucose by meter POCT (05/02/2017 8:25 PM [facility]) athologist Signature GLUCOSE BY 186 mg/dL 05/02/2017 [facility] METER POCT 8:25 PM [facility] POCT RESULTS Comment: Reference [...] specimen 05/02/2017 8:25 PM 018 8:28 (specimen) AGRICULTURE INSPECTOR PM AGRICULTURE INSPECTOR Historical Provider LAB - ENTER/EDIT POCT Performing Organization Address City/State/ZIP Code Phon e Number [facility] POCT RESULTS [address] [place] [address] Glucose by meter POCT (05/02/2017 5:09 PM [facility]) P athologist Signature GLUCOSE BY 171 mg/dL 05/02/2017 [facility] METER POCT 5:09 PM [facility] POCT RESULTS Comment: Reference [...] specimen 05/02/2017 5:09 PM 018 5:10 (specimen) AGRICULTURE INSPECTOR PM AGRICULTURE INSPECTOR Historical Provider LAB - ENTER/EDIT POCT Performing Organization Address City/State/ZIP Code Phon e Number [facility] POCT RESULTS [address] [place] [address] Glucose by meter POCT (05/02/2017 11:41 AM [facility]) athologist Signature GLUCOSE BY 197 mg/dL 05/02/2017 [facility] METER POCT 11:41 AM [facility] POCT RESULTS Comment: Reference Ranges ? Age [...] Blood specimen 05/02/2017 11:41 8 (specimen) AM AGRICULTURE INSPECTOR 11:42 AM AGRICULTURE INSPECTOR Historical Provider LAB - ENTER/EDIT POCT Performing Organization Address City/State/ZIP Code Phon e Number [facility] POCT RESULTS [address] [place] [address] Glucose by meter POCT (05/02/2017 8:15 AM AGRICULTURE INSPECTOR) athologist Signature GLUCOSE BY 163 mg/dL 05/02/2017 [facility] METER POCT 8:15 AM [facility] POCT RESULTS Comment: Reference Ranges ? Age [...] specimen 05/02/2017 8:15 AM 018 8:15 (specimen) AGRICULTURE INSPECTOR AM AGRICULTURE INSPECTOR Historical Provider LAB - ENTER/EDIT POCT Performing Organization Address City/State/ZIP Code Phon e Number [facility] POCT RESULTS [address] [place] [address] (ABNORMAL) CBC WITH PLATELETS AND DIFFERENTIAL (05/02/2017 8:07 AM AGRICULTURE INSPECTOR) [facility] gist Method Time Signature WBC 15.0 (H) 4.0 - 05/02/2017 [facility] 11.0 8:16 AM AGRICULTURE INSPECTOR [facility]/ [facility] RBC Count 3.71 (L) 4.40 - 05/02/2017 [facility] 6.20 8:16 AM AGRICULTURE INSPECTOR [facility]/Nick [facility] Hemoglobin 10.5 (L) 14.0 - 05/02/2017 [facility] 18.0 g/dL 8:16 AM AGRICULTURE INSPECTOR [facility] Hematocrit 32.1 (L) 40.0 - 05/02/2017 [facility] 54.0 % 8:16 AM [facility] MCV 87 80 - 100 05/02/2017 [facility] fL 8:16 AM [employer] MCH 28.3 27.0 - 05/02/2017 [facility] 34.0 pg 8:16 AM AGRICULTURE INSPECTOR [facility] MCHC 32.7 32.0 - 05/02/2017 [facility] 36.0 g/dL 8:16 AM [employer] RDW 14.6 (H) 11.0 - 05/02/2017 [facility] 14.5 % 8:16 AM AGRICULTURE INSPECTOR [facility] Platelet Count 166 140 - 440 05/02/2017 [facility] thou/uL 8:16 AM AGRICULTURE INSPECTOR [employer] Mean Platelet 11.8 8.5 - 05/02/2017 [facility] Volume 12.5 fL 8:16 AM [employer] % Neutrophils 71 (H) 50 - 70 % 05/02/2017 [facility] 8:16 AM [employer] % Lymphocytes 16 (L) 20 - 40 % 05/02/2017 [facility] 8:16 AM AGRICULTURE INSPECTOR [facility] % Monocytes 13 (H) 2 - 10 % 05/02/2017 [facility] 8:16 AM AGRICULTURE INSPECTOR [facility] % Eosinophils 0 0 - 6 % 05/02/2017 [facility] 8:16 AM [employer] % Basophils 1 0 - 2 % 05/02/2017 [facility] 8:16 AM [employer] Absolute 10.6 (H) 2.0 - 7.7 05/02/2017 [facility] Neutrophils thou/uL 8:16 AM AGRICULTURE INSPECTOR [facility] Absolute 2.3 0.8 - 4.4 05/02/2017 [facility] Lymphocytes thou/uL 8:16 AM AGRICULTURE INSPECTOR [employer] [facility] Absolute 1.9 (H) 0.0 - 0.9 05/02/2017 [facility] Monocytes thou/uL 8:16 AM [employer] Eosinophils 0.0 0.0 - 0.4 05/02/2017 [facility] Absolute thou/uL 8:16 AM AGRICULTURE INSPECTOR [facility] Absolute 0.1 0.0 - 0.2 05/02/2017 [facility] Basophils thou/uL 8:16 AM AGRICULTURE INSPECTOR [facility] Specimen Anatomical Collection Method / Collection Time Recei nona Time (Source) Location / Volume Laterality Blood specimen STRUCTURE OF LEFT Venipuncture / 05/02/2017 8:07 02/2018 8:10 (specimen) UPPER LIMB / Unknown AM AGRICULTURE INSPECTOR AM AGRICULTURE INSPECTOR Unknown Yadira Draper MD LAB - BLOOD ORDERABLES Performing Organization Address [facility] Phon [place] [address] [address] [facility] Magnesium (05/02/2017 8:07 AM AGRICULTURE INSPECTOR) P athologist Signature Magnesium 1.8 1.8 - 2.6 05/02/2017 [facility] mg/dL 8:31 AM [facility] Specimen Anatomical Collection Method / Collection Time Recei nona Time (Source) Location / Volume Laterality Blood specimen STRUCTURE OF LEFT Venipuncture / 05/02/2017 8:07 02/2018 8:10 (specimen) UPPER LIMB / Unknown AM AGRICULTURE INSPECTOR AM AGRICULTURE INSPECTOR Unknown Yadira Draper MD LAB - BLOOD ORDERABLES Performing Organization Address City/[facility] Phon e Number [facility] [place] [address] [address] [facility] (ABNORMAL) Renal panel (05/02/2017 8:07 AM AGRICULTURE INSPECTOR) Analysis Performed At Patho logist Time Signature Albumin 3.3 (L) 3.5 - 5.0 05/02/2017 [facility] g/dL 8:31 AM [facility] Calcium 7.9 (L) 8.5 - 10.5 05/02/2017 [facility] mg/dL 8:31 AM [facility] Phosphorus 2.6 2.5 - 4.5 05/02/2017 [facility] mg/dL 8:31 AM [facility] Glucose 160 (H) 70 - 125 05/02/2017 [facility] mg/dL 8:31 AM [facility] Urea Nitrogen 18 8 - 28 05/02/2017 [facility] mg/dL 8:31 AM [facility] Creatinine 0.96 0.70 - 05/02/2017 [facility] 1.30 mg/dL 8:31 AM [facility] Sodium 139 136 - 145 05/02/2017 [facility] mmol/L 8:31 AM [facility] Potassium 3.9 3.5 - 5.0 05/02/2017 [facility] mmol/L 8:31 AM [facility] Chloride 109 (H) 98 - 107 05/02/2017 [facility] mmol/L 8:31 AM [facility] Carbon Dioxide 24 22 - 31 05/02/2017 [facility] (CO2) mmol/L 8:31 AM [facility] Anion Gap 6 5 - 18 05/02/2017 [facility] mmol/L 8:31 AM [facility] GFR Estimate If >60 >60 05/02/2017 [facility] Black mL/min/1.7 8:[address] LABORATORY GFR Estimate >60 >60 05/02/2017 [facility] mL/min/1.7 8:[address] LABORATORY Specimen Anatomical Collection Method / Collection Time Recei nona Time (Source) Location / Volume Laterality Blood specimen STRUCTURE OF LEFT Venipuncture / 05/02/2017 8:07 02/2018 8:10 (specimen) UPPER LIMB / Unknown AM AGRICULTURE INSPECTOR AM AGRICULTURE INSPECTOR Unknown Narrative [facility] - 05/02/2017 8:31 AM AGRICULTURE INSPECTOR Fasting Glucose reference range is 70-99 mg/dL per [employer] (ADA) addie rojas. Yadira Draper MD LAB - BLOOD ORDERABLES Performing Organization Address City/State/ZIP Code Phon e Number O LABORATORY [facility] [place] [address] [place] [id number] [facility] [address] [place] [address] [facility] [address] [address], [facility] Crossmatch red cells (05/02/2017 12:04 AM AGRICULTURE INSPECTOR) [facility] gist Method Time Signature Crossmatch Compatible 05/02/2017 [facility] BLOOD 12:04 AM BANK AGRICULTURE INSPECTOR BLOOD [id number] 05/02/2017 [facility] BLOOD EXPIRATION 12:04 AM BANK DATE AGRICULTURE INSPECTOR Unit ABO/RH O Pos 05/02/2017 [facility] BLOOD 12:04 AM BANK AGRICULTURE INSPECTOR Unit Number [id number] 05/02/2017 [facility] BLOOD 12:04 AM BANK AGRICULTURE INSPECTOR Status Transfused 05/02/2017 [facility] BLOOD 12:04 AM BANK AGRICULTURE INSPECTOR Component Red Blood Cells 05/02/2017 [facility] BLOOD 12:04 AM BANK AGRICULTURE INSPECTOR Product Code [id number] 05/02/2017 [facility] BLOOD 12:04 AM BANK AGRICULTURE INSPECTOR ISSUE DATE AND [id number] 05/02/2017 [facility] BLOOD TIME 12:04 AM BANK AGRICULTURE INSPECTOR BLOOD TYPE 5100 05/02/2017 [facility] BLOOD 12:04 AM BANK AGRICULTURE INSPECTOR CODING SYSTEM [id number] 05/02/2017 [facility] BLOOD 12:04 AM BANK AGRICULTURE INSPECTOR Specimen (Source) Anatomical Location Collection Method / Collectio n Time Received Time / Laterality Volume Derian Yeager MD LAB - BLOOD BANK PRODUCT ORD ER Performing Organization Address City/State/ZIP Code Phon e Number [facility] BLOOD BANK [address] [place] [address] [facility] [address] [place] [address] Crossmatch red cells (05/02/2017 12:04 AM AGRICULTURE INSPECTOR) [facility] Method Time Signature Crossmatch Compatible 05/02/2017 [facility] BLOOD 12:04 AM BANK AGRICULTURE INSPECTOR BLOOD [id number] 05/02/2017 [facility] BLOOD EXPIRATION 12:04 AM BANK DATE AGRICULTURE INSPECTOR Unit ABO/RH O Pos 05/02/2017 [facility] BLOOD 12:04 AM BANK AGRICULTURE INSPECTOR Unit Number [id number] 05/02/2017 [facility] BLOOD 12:04 AM BANK AGRICULTURE INSPECTOR Status Transfused 05/02/2017 [facility] BLOOD 12:04 AM BANK AGRICULTURE INSPECTOR Component Red Blood Cells 05/02/2017 [facility] BLOOD 12:04 AM BANK AGRICULTURE INSPECTOR Product Code [id number] 05/02/2017 [facility] BLOOD 12:04 AM BANK AGRICULTURE INSPECTOR ISSUE DATE AND [id number] 05/02/2017 [facility] BLOOD TIME 12:04 AM BANK AGRICULTURE INSPECTOR BLOOD TYPE 5100 05/02/2017 [facility] BLOOD 12:04 AM BANK AGRICULTURE INSPECTOR CODING SYSTEM [id number] 05/02/2017 BLOOD 12:04 AM BANK AGRICULTURE INSPECTOR Specimen (Source) Anatomical Location Collection Method / Collectio n Time Received Time / Laterality Volume Derian Yeager MD LAB - BLOOD BANK PRODUCT ORD ER Performing Organization Address City/State/ZIP Code Phon e Number [facility]LO[facility] [address] [place] [address] BLOOD BANK [address] [place] [address] Glucose by meter POCT (05/01/2017 9:09 PM [facility]) athologist Signature GLUCOSE BY 187 mg/dL 05/01/2017 [facility] METER POCT 9:09 PM [facility] POCT RESULTS Comment: Reference [...] specimen 05/01/2017 9:09 PM 018 9:16 (specimen) AGRICULTURE INSPECTOR PM AGRICULTURE INSPECTOR Historical Provider LAB - ENTER/EDIT POCT Performing Organization Address City/[facility]/ZIP [facility] Phon e Number [facility] POCT RESULTS [address] [address] (ABNORMAL) Hemoglobin (05/01/2017 7:21 PM AGRICULTURE INSPECTOR) athologist Signature Hemoglobin 11.4 (L) 14.0 - 05/01/2017 [facility] 18.0 g/dL 7:29 PM [facility]ORY Specimen Anatomical Collection Method / Collection Time Recei nona Time (Source) Location / Volume Laterality Blood specimen STRUCTURE OF RIGHT Venipuncture / 05/01/2017 7:21 7:26 (specimen) HAND / Unknown Unknown PM AGRICULTURE INSPECTOR PM AGRICULTURE INSPECTOR Naresh Grant MD LAB - BLOOD ORDERABLES Performing Organization Address City/State/ZIP Code Phon [place] [address] [address] [facility] Glucose by meter POCT (05/01/2017 5:47 PM [facility]) P athologist Signature GLUCOSE BY 211 mg/dL 05/01/2017 [facility] METER POCT 5:47 PM [facility] POCT RESULTS Comment: Reference [...] specimen 05/01/2017 5:47 PM 018 5:48 (specimen) AGRICULTURE INSPECTOR PM AGRICULTURE INSPECTOR Historical Provider LAB - ENTER/EDIT POCT Performing Organization Address City/State/ZIP Code Phon e Number [facility] POCT RESULTS [address] [place] [address] (ABNORMAL) Hemoglobin (05/01/2017 12:12 PM AGRICULTURE INSPECTOR) athologist Signature Hemoglobin 10.8 (L) 14.0 - 05/01/2017 [facility] 18.0 g/dL 12:20 PM AGRICULTURE INSPECTOR [facility] Specimen Anatomical Collection Method Collection Time Receive d Time (Source) Location / / Volume Laterality Blood specimen VAD(CVC, PICC) / 05/01/2017 12:12 05/01 (specimen) Unknown PM AGRICULTURE INSPECTOR 12:12 PM AGRICULTURE INSPECTOR (Line) Derian Yeager MD LAB - BLOOD ORDERABLES Performing Organization Address City/State/ZIP Code Phon [place] [address] [facility] [address] [facility] Glucose by meter POCT (05/01/2017 11:20 AM AGRICULTURE INSPECTOR) athologist Signature GLUCOSE BY 220 mg/dL 05/01/2017 [facility] METER POCT 11:20 AM [facility] POCT RESULTS Comment: Reference [...] Blood specimen 05/01/2017 11:20 8 (specimen) AM AGRICULTURE INSPECTOR 11:25 AM AGRICULTURE INSPECTOR Historical Provider LAB - ENTER/EDIT POCT Performing Organization Address City/State/[facility] Code Phon e Number [facility] POCT RESULTS [address] [place] [address] XR Abdomen Port 1 View (05/01/2017 10:47 AM AGRICULTURE INSPECTOR) Anatomical Region Laterality Modality Abdomen/Pelvis Other Specimen (Source) Anatomical Location Collection Method / Collectio n Time Received Time / Laterality Volume Narrative 05/01/2017 10:54 AM AGRICULTURE INSPECTOR XR ABDOMEN AP PORTABLE 05/01/2017 10:47 AM [...] Glucose by meter POCT (05/01/2017 10:05 AM AGRICULTURE INSPECTOR) P athologist Signature GLUCOSE BY 172 mg/dL 05/01/2017 [facility] POCT 10:05 AM [facility] POCT RESULTS Comment: Reference Ranges ? Age [...] Blood specimen 05/01/2017 10:05 8 (specimen) AM AGRICULTURE INSPECTOR 10:06 AM AGRICULTURE INSPECTOR Historical Provider LAB - ENTER/EDIT POCT Performing Organization Address City/State/ZIP Code Phon e Number [facility] POCT RESULTS [address] [place] [address] (ABNORMAL) Blood gas arterial (05/01/2017 10:00 AM AGRICULTURE INSPECTOR) [facility] Method Time Signature pH Arterial 7.34 (L) 7.37 - 7.44 05/01/2017 [facility] 10:14 AM [facility] pCO2 Arterial 35 35 - 45 mm 05/01/2017 [facility] Hg 10:14 AM [facility] pO2 Arterial 162 (H) 75 - 85 mm 05/01/2017 [facility] Hg 10:14 AM [facility] Bicarbonate, 20.1 (L) 23.0 - 29.0 05/01/2017 [facility] Arterial Calc mmol/L 10:14 AM [facility] O2 Sat, Arterial 99.4 (H) 95.0 - 96.0 05/01/2017 [facility] % 10:14 AM [facility] Oxyhemoglobin 97.7 (H) 95.0 - 96.0 05/01/2017 [facility] % 10:14 AM [facility] Base -6.2 mmol/L 05/01/2017 [facility] Excess/Deficit 10:14 AM [facility] (+/-) [facility] Ventilation Mode VCV 05/01/2017 [facility] 10:14 AM [facility] Rate 18 rr/min 05/01/2017 [facility] 10:14 AM [facility] Flow 2.0 LPM 05/01/2017 [facility] 10:14 AM [facility] Peep 6 cm H2O 05/01/2017 [facility] 10:14 AM [facility] Sample Stabilized 37.0 degrees C 05/01/2017 [facility] Temperature 10:14 AM [facility] Ventilator Tidal 561 mL 05/01/2017 [facility] Volume 10:14 AM [facility] Specimen Anatomical Collection Method Collection Time Receive d Time (Source) Location / / Volume Laterality Arterial blood 05/01/2017 10:00 8 specimen AM AGRICULTURE INSPECTOR 10:10 AM AGRICULTURE INSPECTOR (specimen) (Line) Derian Yeager MD LAB - BLOOD ORDERABLES Performing Organization Address City/State/ZIP Code Phon [place] [address] [address] [facility] (ABNORMAL) Basic metabolic panel (05/01/2017 10:00 AM AGRICULTURE INSPECTOR) Analysis Performed At Patho logist Time Signature Sodium 136 136 - 145 05/01/2017 [facility] mmol/L 10:26 AM [facility] Potassium 5.1 (H) 3.5 - 5.0 05/01/2017 [facility] mmol/L 10:26 AM [facility] Chloride 107 98 - 107 05/01/2017 [facility] mmol/L 10:26 AM [facility] Carbon Dioxide 17 (L) 22 - 31 05/01/2017 [facility] (CO2) mmol/L 10:26 AM [facility] Anion Gap 12 5 - 18 05/01/2017 [facility] mmol/L 10:26 AM [facility] Glucose 228 (H) 70 - 125 05/01/2017 [facility] mg/dL 10:26 AM [facility] Calcium 8.3 (L) 8.5 - 10.5 05/01/2017 [facility] mg/dL 10:26 AM [facility] Urea Nitrogen 15 8 - 28 05/01/2017 [facility] mg/dL 10:26 AM [facility] Creatinine 1.16 0.70 - 05/01/2017 [facility] 1.30 mg/dL 10:26 AM [facility] GFR Estimate If >60 >60 05/01/2017 [facility] Black mL/min/1.7 10:[address] LABORATORY GFR Estimate >60 >60 05/01/2017 [facility] mL/min/1.7 10:[address] LAB[address] Specimen Anatomical Collection Method / Collection Time Recei nona Time (Source) Location / Volume Laterality Blood specimen Venipuncture / 05/01/2017 10:00 018 (specimen) Unknown AM AGRICULTURE INSPECTOR 10:10 AM AGRICULTURE INSPECTOR (Line) Narrative [facility] - 05/01/2017 10:26 AM AGRICULTURE INSPECTOR Fasting Glucose reference range is 70-99 mg/dL per [employer] (ADA) addie rojas. Derian Yeager MD LAB - BLOOD ORDERABLES Performing Organization Address [facility] [place] [address] [phone] [address] [address] [facility] [address] [place] [address], [facility] Magnesium (05/01/2017 10:00 AM AGRICULTURE INSPECTOR) P athologist Signature Magnesium 2.2 1.8 - 2.6 05/01/2017 [facility] mg/dL 10:30 AM AGRICULTURE INSPECTOR [facility] Specimen Anatomical Collection Method / Collection Time Recei nona Time (Source) Location / Volume Laterality Blood specimen Venipuncture / 05/01/2017 10:00 018 (specimen) Unknown AM AGRICULTURE INSPECTOR 10:10 AM AGRICULTURE INSPECTOR (Line) Derian Yeager MD LAB - BLOOD ORDERABLES Performing Organization Address City/[facility] [place]on [place] [address] [phone] [address] [address] [facility]ORY (ABNORMAL) Hemoglobin (05/01/2017 9:55 AM AGRICULTURE INSPECTOR) P athologist Signature Hemoglobin 9.2 (L) 14.0 - 18.0 05/01/2017 [facility] g/dL 10:05 AM AGRICULTURE INSPECTOR [facility] Specimen Anatomical Collection Method / Collection Time Recei nona Time (Source) Location / Volume Laterality Blood specimen Venipuncture / 05/01/2017 9:55 05/01/19 18 (specimen) Unknown AM AGRICULTURE INSPECTOR 10:01 AM AGRICULTURE INSPECTOR Derian Yeager MD LAB - BLOOD ORDERABLES Performing Organization Address City/State/[facility] Code Phon [place] [address] [facility] [address] [place] [address] [facility] LABORATORY Surgical Pathology Exam (05/01/2017 9:49 AM AGRICULTURE INSPECTOR) [facility] gist Method Time Signature Case Report Surgical Pathology Report ? Case: [id number] ? 05/03/2017 [facility] Authorizing Provider: ??Josiah Grant MD ?Collected: ? 05/01/2017 0949 ? 1:03 PM AGRICULTURE INSPECTOR [facility] Ordering Location: ? [facility] OR ?? Received: ?05/01/2017 1118 ? DONTE Drake Pathologist: ? Frederic Escalante MD ? LABORATORY Specimen: ?Spleen ? Final RESECTED SPLEEN: 05/03/2017 [facility] Diagnosis ??- ??NO HISTOLOGIC ABNORMALITY 1:03 PM AGRICULTURE INSPECTOR [facility] 8 at ??1:03 PM [facility] Microscopic Microscopic 05/03/2017 [facility] Description examination 1:03 PM [facility] performed, MUNIR substantiating LABORATORY the above diagnosis. Clinical Pre-op Diagnosis: Morbid obesity [E66.01] 05/03/2017 [facility] Information Time Placed in Formalin: Not provided 1:03 PM [facility] LAB[facility] Gross The specimen is 05/03/2017 [facility] Description received in 1:03 PM [facility], labeled MUNIR with the LABORATORY patient's [...] lymphoid follicles and no discrete lesions. Three appeals representative sections are submitted. JPL:klj Charges CPT: 92542 05/03/2017 [facility] ICD-10: E66.01 1:03 PM [facility] Result Flag Normal 05/03/2017 [facility] 1:03 PM [facility] Comment: SPECIMEN PROCESSING: All histology slide preparation and stai ns; and cytology slide preparation, staining, and workers compensation administrator screening done at [facility] are performed at [facility], [address] [place] [address], [id number], with final interpretatio n, frozen section analysis, and cytology adequacy assessment at indicated laboratory. Specimen Anatomical Collection Method Collection Time Receive d Time (Source) Location / / Volume Laterality Tissue specimen SPLENIC STRUCTURE 05/01/2017 9:49 AM 0 05/01/2017 (specimen) / Unknown AGRICULTURE INSPECTOR 11:18 AM AGRICULTURE INSPECTOR Naresh PIÑA - JUDIE LOPEZ Performing Organization Address City/State/ZIP Code Phon [place] [address] [address] [facility] EXTRA BLUE TOP TUBE (05/01/2017 9:30 AM AGRICULTURE INSPECTOR) Specimen Anatomical Collection Method / Collection Time Recei nona Time (Source) Location / Volume Laterality Blood specimen Venipuncture / 05/01/2017 9:30 05/01/19 18 9:39 (specimen) Unknown AM AGRICULTURE INSPECTOR AM AGRICULTURE INSPECTOR Naresh Grant MD LAB - BLOOD ORDERABLES (ABNORMAL) CBC with platelets (05/01/2017 9:30 AM AGRICULTURE INSPECTOR) [facility] Method Time Signature WBC 18.8 (H) 4.0 - 11.0 05/01/2017 [facility] th/uL 9:46 AM [facility] RBC Count 3.66 (L) 4.40 - 05/01/2017 [facility] 6.20 9:46 AM [facility] Hemoglobin 10.1 (L) 14.0 - 05/01/2017 [facility] 18.0 g/dL 9:46 AM [facility] Hematocrit 31.0 (L) 40.0 - 05/01/2017 [facility] 54.0 % 9:46 AM [facility] MCV 85 80 - 100 05/01/2017 [facility] fL 9:46 AM [facility] MCH 27.6 27.0 - 05/01/2017 [facility] 34.0 pg 9:46 AM [facility] MCHC 32.6 32.0 - 05/01/2017 [facility] 36.0 g/dL 9:46 AM [facility] RDW 13.7 11.0 - 05/01/2017 [facility] 14.5 % 9:46 AM [facility] Platelet Count 175 140 - 440 05/01/2017 [facility]/uL 9:46 AM [facility] Mean Platelet 12.2 8.5 - 12.5 05/01/2017 [facility] Volume fL 9:46 AM [facility] Specimen Anatomical Collection Method / Collection Time Recei nona Time (Source) Location / Volume Laterality Blood specimen Venipuncture / 05/01/2017 9:30 05/01/19 18 9:37 (specimen) Unknown AM A[employer]ICULTURE INSPECTOR AM AGRICULTURE INSPECTOR (Line) Derian Yeager MD LAB - BLOOD ORDERABLES Performing Organization Address City/[facility]/ZIP Code [place] [address] [facility] [address] [facility] [place] [id number] [facility] LABORATORY TYPE AND SCREEN, ADULT (05/01/2017 9:30 AM AGRICULTURE INSPECTOR) P athologist Signature ABO/RH(D) O POS 05/01/2017 [facility] 10:08 AM AGRICULTURE INSPECTOR Antibody Negative Negative 05/01/2017 B[facility]OD BANK Screen 10:08 AM AGRICULTURE INSPECTOR Specimen Anatomical Collection Method Collection Time Receive d Time (Source) Location / / Volume Laterality Blood specimen VAD(CVC, PICC) / 05/01/2017 9:30 AM 01/2018 9:41 (specimen) Unknown AGRICULTURE INSPECTOR AM AGRICULTURE INSPECTOR Derian Yeager MD LAB - BLOOD BANK TEST ORDER Performing Organization Address City/State/ZIP Code Phon e Number [facility] BLOOD BANK [address] [place] [address] BLOOD BANK [address] [place] [address] Glucose by meter POCT (05/01/2017 8:21 AM AGRICULTURE INSPECTOR) P athologist Signature GLUCOSE BY 138 mg/dL 05/01/2017 [facility] METER POCT 8:21 AM [facility] POCT RESULTS Comment: Reference [...] specimen 05/01/2017 8:21 AM 018 8:22 (specimen) AGRICULTURE INSPECTOR AM [facility] Historical Provider LAB - ENTER/EDIT POCT Performing Organization Address City/State/ZIP Code Phon e Number [facility] POCT RESULTS [address] [place] [address] Glucose by meter POCT (05/01/2017 6:03 AM [facility]) athologist Signature GLUCOSE BY 175 mg/dL 05/01/2017 [facility] METER POCT 6:03 AM [facility] POCT RESULTS Comment: Reference Ranges ? Age [...] specimen 05/01/2017 6:03 AM 018 6:05 (specimen) AGRICULTURE INSPECTOR AM AGRICULTURE INSPECTOR Historical Provider LAB - ENTER/EDIT POCT Performing Organization Address City/State/ZIP Code Phon e Number [facility] POCT RESULTS 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
--- OUTSIDE RECORDS SUMMARY | 2022-03-12 14:49 | XMS_ITS | Encounter Summary ---
:1945 Author Organization [place] Address [address] [place] [address] Care Team Providers Name Role Phone Benjamin Henao MD Primary Care Provider Encounter Details Date Type Department Care Team Description 04/08/2017 Records - [facility], En counter for other Clinic Jose R Graham MD preprocedural [facility] [address] [id number] Social History Tobacco Use Types Packs/Day Years [...] Encounter for othe r Results for this AMORTIZATION CLERK preprocedural procedure are in examination the results section. documented in this encounter Results XR Chest 2 Views (04/08/2017 1:38 PM AMORTIZATION CLERK) Anatomical Region Laterality Modality Chest Digital Radiography Specimen (Source) Anatomical Location Collection Method / Collectio n Time Received Time / Laterality Volume Narrative 04/08/2017 3:24 PM AMORTIZATION CLERK XR CHEST 2 VIEWS 04/08/2017 1:38 PM [...] ation documented in this encounter Care Teams Employment Advisor Relationship Specialty Start Date End Date Benjamin Henao MD PCP - General Internal Medicine 07/24/16 0344 [place] [address] documented as of this encounter
--- OUTSIDE RECORDS SUMMARY | 2022-03-12 14:49 | XMS_ITS | Encounter Summary ---
:1945 Author Organization [place] Address [address] [place] [address] Care Team Providers Name Role Phone Benjamin Henao MD Primary Care Provider Encounter Details Date Type Department Care Team Description 02/28/2017 Communication - [facility] Santos Krishna, [facility] Surgery Clinic and Bariatrics Care [address] [place] [phone] Social History Tobacco Use Types Packs/Day Years [...] on filedocumented in this encounter Care Teams Hull Outfit Supervisor Relationship Specialty Start Date End Date Benjamin Henao MD PCP - General Internal Medicine 07/24/16 2116 [place] [address] documented as of this encounter
--- OUTSIDE RECORDS SUMMARY | 2022-03-12 14:49 | XMS_ITS | Encounter Summary ---
:1945 Author Organization [place] Address [address] [place] [address] Care Team Providers Name Role Phone Benjamin Henao MD Primary Care Provider Reason for Visit Reason Comments Diabetes follow up Encounter Details Date Type Department Care Team Description 01/11/2017 Office Visit - [facility] [place] Benjamin Henao, Type 2 diabetes [facility] mellitus (H) [facility] [address] [address] [place] [phone] Social History Tobacco Use Types Packs/Day Years [...] uncontrolled documented in this encounter Care Teams Vine Fruit Farming Supervisor Relationship Specialty Start Date End Date Benjamin Henao MD PCP - General Internal Medicine 07/24/16 [address] [place] [address] documented as of this encounter
--- OUTSIDE RECORDS SUMMARY | 2022-03-12 14:49 | XMS_ITS | Encounter Summary ---
:1945 Author Organization [place] Address [address] [place] [address] Care Team Providers Name Role Phone Benjamin Henao MD Primary Care Provider Encounter Details Date Type Department Care Team Description 10/26/2016 Ambulatory - [facility] Gayatri Weber, Surgery Clinic and RN Bariatrics Care 17 [facility] [address] [place] [address] Social History Tobacco Use Types [...] with initial labs. Gayatri Weber RN, CBN [facility] Surgery and Bariatric Care P [phone] F [phone] documented in this encounter Plan of Treatment Not on filedocumented as of this encounter Visit Diagnoses Not on filedocumented in this encounter Care Teams Senior Director Creative Services Relationship Specialty Start Date End Date Benjamin Henao MD PCP - General Internal Medicine 07/24/16 0198 [place] [address] documented as of this encounter
--- OUTSIDE RECORDS SUMMARY | 2022-03-12 14:49 | XMS_ITS | Encounter Summary ---
:1945 Author Organization [place] Address [address] [place] [address] Care Team Providers Name Role Phone Benjamin Henao MD Primary Care Provider Reason for Visit Reason Comments Pre-Op Exam discussed diabetic needs ling or/after bariatric surgery Encounter Details Date Type Department Care Team Description 04/08/2017 Communication - [facility] Erendira, [facility]am [facility] and MD Santos (discussed diabetic Bariatrics Care 2945 needs prio... 17 [facility] [address] [place] [phone] Social History Tobacco Use Types Packs/Day [...] on filedocumented in this encounter Care Teams Advanced Manufacturing Consultant Relationship Specialty Start Date End Date Benjamin Henao MD PCP - General Internal Medicine 07/24/16 8365 [place] [address] documented as of this encounter
--- OUTSIDE RECORDS SUMMARY | 2022-03-12 14:49 | XMS_ITS | Encounter Summary ---
:1945 Author Organization [place] Address [address] [place] [address] Care Team Providers Name Role Phone Benjamin Henao MD Primary Care Provider Encounter Details Date Type Department Care Team Description 02/28/2017 [facility] Lorna Krishnamurthy, Pre-oper ative clearance; [facility] Surgery Clinic and floor tiling professional (H); Bariatrics Care Type 1 diabetes mellitus wit h hyperglycemia (H); [address] Diabetes me llitus due to underlying condition with hyperglycemia (H); [address] Other disorders of arteries, arterioles and capillaries in diseases classified elsewhere (H) [place] [address] Social History Tobacco Use Types [...] He will be seeing Dr. Henao at [facility] on 03/18/2017 and is planning on doing his pre-op testing at that visit. Will place the orders today per Dr. Grant and Anesthesia. Lorna Krishnamurthy, RN ENT PRODUCTION SPECIALIST documented in this encounter Plan of Treatment [...] (H) documented in this encounter Care Teams Warper Tender Relationship Specialty Start Date End Date Benjamin Henao MD PCP - General Internal Medicine 07/24/[address] [place] [address] documented as of this encounter
--- OUTSIDE RECORDS SUMMARY | 2022-03-12 14:49 | XMS_ITS | Encounter Summary ---
:1945 Author Organization [place] Address [address] [place] [address] Care Team Providers Name Role Phone Benjamin Waller MD Primary Care Provider Reason for Visit Reason Comments Pre-Op Exam 05/01/17 - bariatric surgery - [facility] - Dr. Grant Other Other; pt need ekg and Chest xray Encounter Details Date Type Department Care Team Description 04/08/2017 Office Visit - [facility] Benjamin Valentin, Pre- op exam; [facility] Jose R FORTUNE Pre-operative clearance; [address] mellitus due to und erlying condition with hyperglycemia (H); [address] Other disorders of arteries, arterioles and capillaries in diseases classified elsewhere (H) [place] [phone] Social History Tobacco Use Types Packs/Day Years [...] 145.2 kg (320 lb) 04/08/2017 12:45 PM GYROSCOPE REPAIRER Height - - Body Mass Index 48.66 [...] gastric bypass Surgery Date: 05/01/17 Surgery Location: [facility] Surgeon: Dr. Grant ASSESSED PROBLEMS: Problem List Items Addressed This Visit None CHIEF COMPLAINT: Chief Complaint Patient presents with ??? Pre-op Exam 05/01/17 - bariatric surgery - [facility] - Dr. Grant HISTORY OF PRESENT ILLNESS: Faith Adames is a 71 y.o. year-old male here for an internal medicine pre-operative consultation. The exam is requested by Dr. Grant in preparation for gastric bypass surgery to be performed at [facility] on 05/01/17. Today???s examination on 04/08/17 [...] Administered ??? DT (pediatric) 04/22/2000 ??? Influenza [id number], 02/20/2009 ??? Influenza high dose, seasonal 01/21/2015, [...] Frequent Aspirin use: yes Family history of ND, Stroke and sudden , clotting disorder Social [...] and normal reflexes. Psychiatric:Normal mood and affect. SCOPE REPAIRER documented in this encounter Miscellaneous Notes Addendum Note - Chrissy Cohn - 04/08/2017 2:24 PM CST Addendum Note by Chrissy Waller CMA at 04/08/2017 2:24 PM Author: Chrissy Waller CMA Service: -- Author Type: Civil Preparedness Officer Filed: 04/08/2017 2:24 PM Encounter Date: 04/08/2017 Status: Signed Sliver Lap Machine Tender: Chrissy Waller CMA (Civil Preparedness Officer) Addended by: CHRISSY WALLER on: 04/08/2017 02:24 PM Modules accepted: Orders SCOPE REPAIRER documented in this encounter Plan of [...] 04/08/2017 HE RADIANT Pressure 2:20 PM CONVERSION GYROSCOPE REPAIRER Diastolic Blood mmHg 04/08/2017 HE RADIANT Pressure 2:20 PM CONVERSION GYROSCOPE REPAIRER Ventricular Rate 61 BPM 04/08/2017 HE RADIANT 2:20 PM CONVERSION GYROSCOPE REPAIRER Atrial Rate 61 BPM 04/08/2017 HE RADIANT 2:20 PM CONVERSION GYROSCOPE REPAIRER CO Interval 202 ms 04/08/2017 HE RADIANT 2:20 PM CONVERSION GYROSCOPE REPAIRER QRS Duration 84 ms 04/08/2017 HE RADIANT 2:20 PM CONVERSION GYROSCOPE REPAIRER QT 380 ms 04/08/2017 HE RADIANT 2:20 PM CONVERSION GYROSCOPE REPAIRER QTc 382 ms 04/08/2017 HE RADIANT 2:20 PM CONVERSION GYROSCOPE REPAIRER P Plover 73 degrees 04/08/2017 HE RADIANT 2:20 PM CONVERSION GYROSCOPE REPAIRER R AXIS -46 degrees 04/08/2017 HE RADIANT 2:20 PM CONVERSION GYROSCOPE REPAIRER T Plover -18 degrees 04/08/2017 HE RADIANT 2:20 PM CONVERSION GYROSCOPE REPAIRER Interpretation Normal sinus rhythm 04/08/2017 HE R ADIANT ECG Left axis deviation 2:20 PM CONVERSION Minimal voltage criteria for LVH, may be normal variant GYROSCOPE REPAIRER Inferior infarct , age undetermined Abnormal ECG No previous ECGs available Confirmed by SARA ??CLIVE FORTUNE LOC:JN ([id number]) on 03/22 2:20:08 PM Specimen (Source) Anatomical Collection Method Collection Time Re ceived Time Location / / Volume Laterality 04/08/2017 04/08/2017 2:20 PM GYROSCOPE REPAIRER Benjamin Waller MD ECG ORDERABLES Performing Organization [...] (H) documented in this encounter Care Teams Branch Office Manager Relationship Specialty Start Date End Date Benjamin Waller MD PCP - General Internal Medicine 07/24/[address] [place] [address] documented as of this encounter
--- OUTSIDE RECORDS SUMMARY | 2022-03-12 14:49 | XMS_ITS | Encounter Summary ---
:1945 Author Organization [place] Address [address] [place] [address] Care Team Providers Name Role Phone Benjamin Henao MD Primary Care Provider Encounter Details Date Type Department Care Team Description 10/25/2016 [facility] Santos Krishna, Hypomagn esemia [facility] Surgery Clinic and Bariatrics Care [address] [place] [address] [place] [address] [phone] (Work) [phone] Social History Tobacco Use Types Packs/Day Years [...] metabolism documented in this encounter Care Teams Deck Lid Fitter Relationship Specialty Start Date End Date Benjamin Henao MD PCP - General Internal Medicine 07/24/16 7975 [place] [address] documented as of this encounter
--- OUTSIDE RECORDS SUMMARY | 2022-03-12 14:49 | XMS_ITS | Encounter Summary ---
:1945 Author Organization [place] Address [address] [place] [address] Care Team Providers Name Role Phone Benjamin Henao MD Primary Care Provider Encounter Details Date Type Department Care Team Description 04/30/2017 Anesthesia - [facility] MD [address] [place] [phone] [place], [place] [phone] [address] Social History Tobacco Use Types Packs/Day Years Used Date Smoking Tobacco: Former Cigarettes Quit : 08/27/1989 Alcohol Use Standard Drinks/Week Comments Yes 0 (1 standard drink = 0.6 oz pure alcoho l) Sex Assigned at Date Recorded Not on file documented as of this encounter OR Notes Anesthesia Procedure Notes - Mandy Yeager R - 05/01/2017 12:08 PM DOCUMENT SCANNER Arterial Line Reason for Procedure: hemodynamic monitoring [...] to verify the correct patient, procedure, equipment, instructional support specialist and site/side marked as required Laterality: right Location: radial Prepped with: ChloroPrep Needle gauge: 20 G Number of Attempts: 1 Secured with: tape, transparent dressing and pressure dressing Flushed with: saline 1% lidocaine local anesthesia used for skin prep. See MAR for additional medications given. Ultrasound evaluation of access site: yes Vessel patent by US exam Concurrent real time visualization of needle entry MENT SCANNER Anesthesia Postprocedure Evaluation - Mandy Yeager - 05/01/2017 12:00 PM DOCUMENT SCANNER Patient: Faith Andresabounjean LAPAROSCOPIC ELIZABETH-EN-Y BASTRIC BYPASS [...] doing very well. VSS. Pain well controlled. MENT SCANNER Anesthesia Preprocedure Evaluation - Mandy Yeager MD - 04/30/2017 5:12 PM CST Images from the original note were not included. Anesthesia Preprocedure Evaluation by Mandy Yeager MD at 04/30/2017 5:12 PM Author: Mandy Yeager MD Service: -- Author Type: Physician Filed: 05/01/2017 6:53 AM Date of Service: 04/30/2017 5:12 PM Status: Addendum Vulcanizer: Mandy Yeager MD (Physician) Related Notes: Original [...] airway, antiemetics, dexmedetomidine Post-op plan: routine recovery MENT SCANNER documented in this encounter Miscellaneous Notes Anesthesia [...] and ETT removed with good air exchange. MENT SCANNER documented in this encounter Plan of Treatment Not on filedocumented as of this encounter Visit Diagnoses Not on filedocumented in this encounter Care Teams Lumber Piler Relationship Specialty Start Date End Date Benjamin Henao MD PCP - General Internal Medicine 07/24/[address] [place], [place] [phone] documented as of this encounter
--- OUTSIDE RECORDS SUMMARY | 2022-03-12 14:49 | XMS_ITS | Encounter Summary ---
:1945 Author Organization [place] Address [address] [place] [address] Care Team Providers Name Role Phone Benjamin Henao MD Primary Care Provider Encounter Details Date Type Department Care Team Description 05/01/2017 Surgery - [facility] Naresh Grant MD [id number] [place] [address] (Wo rk) [address] [phone] Social History Tobacco Use Types Packs/Day Years [...] (303 lb 6.4 oz) 05/03/2017 11:06 AM REPAIRER SHOE STICKS Height 172.7 cm (5' 8) 05/01/2017 6:19 AM REPAIRER SHOE STICKS Body Mass Index 46.13 05/01/2017 6:19 AM REPAIRER SHOE STICKS documented in this encounter Plan of Treatment Not on filedocumented as of this encounter Visit Diagnoses Not on filedocumented in this encounter Care Teams Greenhouse Grower Relationship Specialty Start Date End Date Benjamin Hneao MD PCP - General Internal Medicine 07/24/16 [address] [place] [address] documented as of this encounter
--- OUTSIDE RECORDS SUMMARY | 2022-03-12 14:50 | XMS_ITS | Encounter Summary ---
:1945 Author Organization [place] Address [address] [place] [address] Care Team Providers Name Role Phone Benjamin Henao MD Primary Care Provider Encounter Details Date Type Department Care Team Description 10/02/2016 [facility] - [facility] Surgery Clinic and Bariatrics Care 17 [facility] 140 [place] [address] Social History Tobacco Use Types [...] on filedocumented in this encounter Care Teams Armoring Machine Operator Relationship Specialty Start Date End Date Benjamin Henao MD PCP - General Internal Medicine 07/24/[address] [place], [place] [address] documented as of this encounter
--- OUTSIDE RECORDS SUMMARY | 2022-03-12 14:50 | XMS_ITS | Encounter Summary ---
:1945 Author Organization [place] Address [address] [place] [address] Care Team Providers Name Role Phone Benjamin Henao MD Primary Care Provider Reason for Visit Reason Comments Weight Problem Initial surgical-/07/26/16/Dr. Grant?/Bypass? Encounter Details Date Type Department Care Team Description 09/28/2016 Office Visit - [facility] Santos Krishna, Obesit y, Class III, BMI 40-49.9 (morbid obesity) (H); [facility] Surgery Clinic and Type II diabetes mellitus (H); Bariatrics Care [facility]5 MOIRA BERNADETTE on CPAP; [place] [address] Essential hypertension; [address] [facility] [address] [place] [address] [phone] (Work) [phone] Social History Tobacco Use Types Packs/Day Years [...] with surgical weight loss. 3. Intakes with toll gate tender and Bariatric psychology. 4. Intake labs can [...] use CPAP and has support of his plastic card grader cardroom for weight loss as well (care everywhere). [...] using insulin will be referred to a [facility] cane pusher for perioperative insulin management. GASTROINTESTINAL: Evaluation of [...] no Retinopathy: no IFG or pre-DM: na MA: no CVA:no CHF: no Previous cardiac testing includes: stress testCHARLESFAITH MELGAR Excellian ID: [id number] Age: 69 : 1945 Exam Date: 12/28/2014 11:25 Gender: M RN/Ex. Varnish Melter Helper: EDITH Height: 69 in BSA: 2.47 m?? Monitoring Provider: KAILYN GARNETT Weight: 305 lbs BMI: 45 kg/m?? Ordering Provider: PERLA BLEVINS Location: Outpatient Procedure: STRESS TEST EXERCISE Indications: Coronary artery disease involving [place] coronary artery without angina pectoris, unspecified whether [place] or transplanted heart Technical Quality: FINAL CONCLUSIONS 1)?Mild to moderate impairment of exercise tolerance 2)?No electrocardiographic evidence for exercise induced coronary ischemia Date: 2012 Indication: Chest pain with equivocal stress test, coronary artery disease, dyspnea, abnormal EKG.? CONCLUSIONS: 1.?Vjal-oj-kdzzugpq coronary artery disease as detailed below. 2.?The [...] implications with you; for assistance, please call [phone] Cancers: no Kidney Disease: no DVT: no [...] ??? blood sugar diagnostic (GLUCOSE BLOOD) Strp Autrement (HotelHotel) Contour Test In Vitro Strip.TEST 4 - [...] Witnessed Apneas yes, uses cpap PND no Teaneck Score: na STOP BANG: na General Fatigue: [...] Rhythm regular Rate Regular Murmur: none Pulmonary Teaneck Score: na Lungs clear to ascultation Abdomen [...] LABS on File: No results found for: [id number] No results found for: 7597 WBC Date [...] found for: PTH No results found for: [id number] Ferritin Date Value Ref Range Status 01/10/2016 [...] found for: TESTOSTERONE No results found for: [id number] Counseled on what to expect regarding the [...] one alcoholic beverage. Time spent 60 minutes innn-hd-lwes with over 50% of the time spent [...] reflux documented in this encounter Care Teams Realty Specialist Relationship Specialty Start Date End Date Benjamin Henao MD PCP - General Internal Medicine 07/24/[address] [place] [address] documented as of this encounter
--- OUTSIDE RECORDS SUMMARY | 2022-03-12 14:50 | XMS_ITS | Encounter Summary ---
:1945 Author Organization [place] Address [address] [place] [address] Care Team Providers Name Role Phone Benjamin Henao MD Primary Care Provider Reason for Visit Reason Comments Weight Problem Surgeon Consult for Bariatri c Surgery Encounter Details Date Type Department Care Team Description 10/02/2016 Office Visit - [facility] Naresh Grant MD Obstructive sleep apnea (adult) (pediatr ic); [facility] [address] [place] [address] Type 2 diab etes mellitus (H); and Bariatrics RD Essential hypertension with goal blood p ressure less than 130/85; [place], [place] Gastroesophageal reflux dise ase without esophagitis; [address] [address] Morbid obesity due to excess calories (H ) [address] [place], [place] (Work) [address] Social History Tobacco Use [...] surgery in more detail. Naresh Grant MD [facility] Department of Surgery documented in this encounter [...] ) documented in this encounter Care Teams Cognos Bi Administrator Relationship Specialty Start Date End Date Benjamin Henao MD PCP - General Internal Medicine 07/24/[address] [place] [address] documented as of this encounter
--- OUTSIDE RECORDS SUMMARY | 2022-03-12 14:51 | XMS_ITS | Encounter Summary ---
:1945 Author Organization [facility] Address [address] [place] [address] Care Team Providers Name Role Phone Eladio Nielsen Primary Care Provider Unavailable Benjamin Henao MD Primary Care Provider Reason for Visit Reason Comments Follow Up On labs Encounter Details Date Type Department Care Team Description 06/13/2015 [facility], Type II or unspecified type diabetes mellitus without mention of complication, not stated as uncontrolled; [facility] Microalbuminuria; [place] [facility] [facility] Unspecified essential hypert ension [address] [facility] [place] [phone] Social History Tobacco Use Types Packs/Day [...] 140.6 kg (310 lb) 06/13/2015 9:40 AM ENTRY LEVEL ASSISTANT MANAGER Height - - Body Mass Index 46.45 03/11/2015 9:10 AM ENTRY LEVEL ASSISTANT MANAGER documented in this encounter Progress Notes Benjamin [...] for this visit. Total data points: 3 Y LEVEL ASSISTANT MANAGER documented in this encounter Plan of Treatment Not on filedocumented as of this encounter Procedures Procedure Name Priority Date/Time Associated Diagnosis Comme nts HEMOGLOBIN A1C Routine 06/13/2015 10:07 AM Result s for this ENTRY LEVEL ASSISTANT MANAGER procedure are i n the results section . documented in this encounter Results (ABNORMAL) Hemoglobin A1c (06/13/2015 10:07 AM ENTRY LEVEL ASSISTANT MANAGER) Analysis Performed At [facility] Time Signature Hemoglobin A1C 7.9 (H) 3.5 - 6.0 06/13/2015 HEALTH % 10:19 AM ENTRY LEVEL ASSISTANT MANAGER [facility] Specimen Anatomical Collection Method / Collection Time Recei nona Time (Source) Location / Volume Laterality Blood specimen Venipuncture / 06/13/2015 10:07 016 (specimen) Unknown AM ENTRY LEVEL ASSISTANT MANAGER 10:07 AM ENTRY LEVEL ASSISTANT MANAGER Benjamin Henao MD LAB - BLOOD ORDERABLES Performing Organization Address City/State/ZIP Code Phon e Number [facility] [place] [address] 1875 [facility] [address] [place] [address] [phone] CLINIC LABORATORY documented in this encounter Visit Diagnoses Diagnosis Type II or unspecified type diabetes mando litus without mention of complication, not stated as uncontrolled Microalbuminuria Proteinuria Unspecified essential hypertension documented in this encounter Care Teams Inspector Bullet Slugs Relationship Specialty Start Date End Date Eladio Nielsen PCP - General 08/14/11 07/23/16 Benjamin Henao MD PCP - General Internal Medicine 07/24/16 [address] [place] [address] documented as of this encounter
--- OUTSIDE RECORDS SUMMARY | 2022-03-12 14:51 | XMS_ITS | Encounter Summary ---
:1945 Author Organization [facility] Address [address] [place] [address] Care Team Providers Name Role Phone Eladio Nielsen Primary Care Provider Unavailable Benjamin Henao MD Unavailable Benjamin Henao MD Primary Care Provider Encounter Details Date Type Department Care Team Description 05/03/2015 Records - [facility] Provider, Winter jacobsen Social History Tobacco Use [...] filedocumented in this encounter Care Teams Pan Pusher Relationship Specialty Start Date End Date Eladio Nielsen PCP - General 08/14/11 07/23/16 Benjamin Henao MD PCP - General Internal Medicine 07/24/16 [address] [place] [address] Benjamin Henao MD Assigned PCP 10/05/20 [address] [place] [address] documented as of this encounter
--- OUTSIDE RECORDS SUMMARY | 2022-03-12 14:51 | XMS_ITS | Encounter Summary ---
:1945 Author Organization [facility] Address [address] [place] [address] Care Team Providers Name Role Phone Eladio [...] on filedocumented in this encounter Care Teams Gallery Or Museum Guide Relationship Specialty Start Date End Date Eladio Nielsen PCP - General 08/14/11 07/23/16 Benjamin Henao MD PCP - General Internal Medicine 07/24/[address] [place] [address] Benjamin Henao MD Assigned PCP 10/05/[address] [place] [address] documented as of this encounter
--- OUTSIDE RECORDS SUMMARY | 2022-03-12 14:51 | XMS_ITS | Encounter Summary ---
:1945 Author Organization [facility] Address [address] [place] [address] Care Team Providers Name Role Phone Eladio [...] on filedocumented in this encounter Care Teams Imaging Technician Relationship Specialty Start Date End Date Eladio Nielsen PCP - General 08/14/11 07/23/16 Benjamin Henao MD PCP - General Internal Medicine 07/24/16 94[address] [place] [address] documented as of this encounter
--- OUTSIDE RECORDS SUMMARY | 2022-03-12 14:51 | XMS_ITS | Encounter Summary ---
:1945 Author Organization [facility] Address [address] [place] [address] Care Team Providers Name Role Phone Eladio Nielsen Primary Care Provider Unavailable Benjamin Henao MD Unavailable Benjamin Henao MD Primary Care Provider Encounter Details Date Type Department Care Team Description 04/28/2015 Records - [facility] Provider, Winter jacobsen Social History Tobacco Use [...] on filedocumented in this encounter Care Teams Ordnance Mechanic Relationship Specialty Start Date End Date Eladio Nielsen PCP - General 08/14/11 07/23/16 Benjamin Henao MD PCP - General Internal Medicine 07/24/161824 [place] [address] Benjamin Henao MD Assigned PCP 10/05/201824 [place] [address] documented as of this encounter
--- OUTSIDE RECORDS SUMMARY | 2022-03-12 14:51 | XMS_ITS | Encounter Summary ---
:1945 Author Organization [facility] Address [address] [place] [address] Care Team Providers Name Role Phone Eladio Nielsen Primary Care Provider Unavailable Benjamin Henao MD Primary Care Provider Encounter Details Date Type Department Care Team Description 11/11/2015 Communication - [facility] MD [facility] [address] [address] [place], [place] [phone] (Wo rk) [address] [phone] Social History Tobacco Use Types Packs/Day Years [...] on filedocumented in this encounter Care Teams Box Office Clerk Relationship Specialty Start Date End Date Eladio Nielsen PCP - General 08/14/11 07/23/16 Benjamin Henao MD PCP - General Internal Medicine 07/24/[address] [place] [address] documented as of this encounter
--- OUTSIDE RECORDS SUMMARY | 2022-03-12 14:51 | XMS_ITS | Encounter Summary ---
:1945 Author Organization [facility] Address [address] [place] [address] Care Team Providers Name Role Phone Eladio Nielsen Primary Care Provider Unavailable Benjamin Henao MD Primary Care Provider Encounter Details Date Type Department Care Team Description 03/14/[address] - [facility] Benjamin Henao MD [facility] [address] [address] [place], [place] [phone] (Wo rk) [address] [phone] Social History Tobacco Use Types Packs/Day Years [...] on filedocumented in this encounter Care Teams Upper Cutter Relationship Specialty Start Date End Date Eladio Nielsen PCP - General 08/14/11 07/23/16 Benjamin Henao MD PCP - General Internal Medicine 07/24/[address] [place] [address] documented as of this encounter
--- OUTSIDE RECORDS SUMMARY | 2022-03-12 14:51 | XMS_ITS | Encounter Summary ---
:1945 Author Organization [facility] Address [address] [place] [address] Care Team Providers Name Role Phone Benjamin Henao MD Unavailable Benjamin Henao MD Primary Care Provider Encounter Details Date Type Department Care Team Description 08/14/2016 Records - [facility] CONVERSION Provider, Winter jacobsen Social History [...] on filedocumented in this encounter Care Teams Software Lead Relationship Specialty Start Date End Date Benjamin Henao MD PCP - General Internal Medicine 07/24/[address] [place] [address] Benjamin Henao MD Assigned PCP 10/05/[address] [place] [address] documented as of this encounter
--- OUTSIDE RECORDS SUMMARY | 2022-03-12 14:51 | XMS_ITS | Encounter Summary ---
:1945 Author Organization [facility] Address [address] [place] [address] Care Team Providers Name Role Phone Eladio Nielsen Primary Care Provider Unavailable Benjamin Henao MD Primary Care Provider Encounter Details Date Type Department Care Team Description 01/12/2016 Communication - [facility] Benjamin Henao MD [facility] [address] [address] [place], [place] [phone] (Wo rk) [address] [phone] Social History Tobacco Use Types Packs/Day Years [...] on filedocumented in this encounter Care Teams Area Development Consultant Relationship Specialty Start Date End Date Eladio Nielsen PCP - General 08/14/11 07/23/16 Benjamin Henao MD PCP - General Internal Medicine 07/24/[address] [place] [address] documented as of this encounter
--- OUTSIDE RECORDS SUMMARY | 2022-03-12 14:51 | XMS_ITS | Encounter Summary ---
:1945 Author Organization [facility] Address [address] [place] [address] Care Team Providers Name Role Phone Eladio Nielsen Primary Care Provider Unavailable Benjamin Henao MD Primary Care Provider Encounter Details Date Type Department Care Team Description 01/10/2016 [facility] Anemia [facility] 18[address] [place] [address] [facility] [phone] Social History Tobacco Use Types Packs/Day Years [...] unspecified documented in this encounter Care Teams Master Pilot Relationship Specialty Start Date End Date Eladio Nielsen PCP - General 08/14/11 07/23/16 Benjamin Henao MD PCP - General Internal Medicine 07/24/16 [address] [place] [address] documented as of this encounter
--- OUTSIDE RECORDS SUMMARY | 2022-03-12 14:51 | XMS_ITS | Encounter Summary ---
:1945 Author Organization [facility] Address [address] [place] [address] Care Team Providers Name Role Phone Benjamin [...] on filedocumented in this encounter Care Teams Medical Voucher Clerk Relationship Specialty Start Date End Date Benjamin Henao MD PCP - General Internal Medicine 07/24/16 9125 [place] [address] documented as of this encounter
--- OUTSIDE RECORDS SUMMARY | 2022-03-12 14:51 | XMS_ITS | Encounter Summary ---
:1945 Author Organization [facility] Address [address] [place] [address] Care Team Providers Name Role Phone Eladio Nielsen Primary Care Provider Unavailable Benjamin Henao MD Primary Care Provider Encounter Details Date Type Department Care Team Description 05/16/2016 Communication - [facility] Benjamin Henao MD [facility] [address] [address] [place], [place] [phone] (Wo rk) [address] [phone] Social History Tobacco Use Types Packs/Day Years [...] on filedocumented in this encounter Care Teams Ham Boner Relationship Specialty Start Date End Date Eladio Nielsen PCP - General 08/14/11 07/23/16 Benjamin Henao MD PCP - General Internal Medicine 07/24/[address] [place] [address] documented as of this encounter
--- OUTSIDE RECORDS SUMMARY | 2022-03-12 14:51 | XMS_ITS | Encounter Summary ---
:1945 Author Organization [facility] Address [address] [place] [address] Care Team Providers Name Role Phone Eladio Nielsen Primary Care Provider Unavailable Benjamin Henao MD Unavailable Benjamin Henao MD Primary Care Provider Encounter Details Date Type Department Care Team Description 03/24/2015 Records - [facility] CONVERSION Provider, Winter jacobsen Social History [...] in this encounter Care Teams Supply Chain Analyst Relationship Specialty Start Date End Date Eladio Nielsen PCP - General 08/14/11 07/23/16 Benjamin Henao MD PCP - General Internal Medicine 07/24/[address] [place] [address] Benjamin Henao MD Assigned PCP 10/05/[address] [place] [address] documented as of this encounter
--- OUTSIDE RECORDS SUMMARY | 2022-03-12 14:51 | XMS_ITS | Encounter Summary ---
:1945 Author Organization [facility] Address [address] [place] [address] Care Team Providers Name Role Phone Benjamin Henao MD Unavailable Benjamin Henao MD Primary Care Provider Encounter Details Date Type Department Care Team Description 09/03/2016 Records - [facility] CONVERSION Provider, Winter jaocbsen Social History Tobacco Use Types Packs/Day Years [...] on filedocumented in this encounter Care Teams System Administration Advisor Relationship Specialty Start Date End Date Benjamin Henao MD PCP - General Internal Medicine 07/24/[address] [place] [address] Benjamin Henao MD Assigned PCP 10/05/[address] [place] [address] documented as of this encounter
--- OUTSIDE RECORDS SUMMARY | 2022-03-12 14:51 | XMS_ITS | Encounter Summary ---
:1945 Author Organization [facility] Address [address] [place] [address] Care Team Providers Name Role Phone Eladio Nielsen Primary Care Provider Unavailable Benjamin Henao MD Unavailable Benjamin Henao MD Primary Care Provider Encounter Details Date Type Department Care Team Description 10/17/2015 Records - [facility] CONVERSION Provider, Winter jacobsen Social History Tobacco [...] on filedocumented in this encounter Care Teams Adult Health Clinical Nurse Specialist Relationship Specialty Start Date End Date Eladio Nielsen PCP - General 08/14/11 07/23/16 Benjamin Henao MD PCP - General Internal Medicine 07/24/[address] [place] [address] Benjamin Henao MD Assigned PCP 10/05/[address] [place] [address] documented as of this encounter
--- OUTSIDE RECORDS SUMMARY | 2022-03-12 14:51 | XMS_ITS | Encounter Summary ---
:1945 Author Organization [facility] Address [address] [place] [address] Care Team Providers Name Role Phone Benjamin Henao MD Unavailable Benjamin Henao MD Primary Care Provider Encounter Details Date Type Department Care Team Description 08/01/2016 Records - [facility] CONVERSION Provider, Winter jacobsen Social [...] on filedocumented in this encounter Care Teams Clinical Research Analyst Relationship Specialty Start Date End Date Benjamin Henao MD PCP - General Internal Medicine 07/24/[address] [place] [address] Benjamin Henao MD Assigned PCP 10/05/[address] [place] [address] documented as of this encounter
--- OUTSIDE RECORDS SUMMARY | 2022-03-12 14:51 | XMS_ITS | Encounter Summary ---
:1945 Author Organization [facility] Address [address] [place] [address] Care Team Providers Name Role Phone Benjamin Henao MD Primary Care Provider Reason for Visit Reason Comments Diabetes follow up Hypertension follow up Encounter Details Date Type Department Care Team Description 07/24/2016 Office Visit - [facility] Benjamin Henao, Type 2 diabetes [facility] mellitus (H) [facility] 1824 [facility] 1824 [facility] [place] [phone] Social History Tobacco Use Types Packs/Day Years [...] is going to get this through a [place] pharmacy. I will call him with results [...] consult with a bariatric medicine physician at [facility] on . He will be following up [...] OF SYSTEMS: He recently presented to an mover helper for a diabetic eye exam, who informed him that he did not have indications of diabetic retinopathy. All other systems are negative. [facility]: Allergies Allergen Reactions ??? Lisinopril ??? Sibutramine [...] (ABNORMAL) Lipid Profile (07/24/2016 11:45 AM CDT) [facility] gist Method Time Signature Cholesterol 144 [...] uncontrolled documented in this encounter Care Teams Broke Worker Relationship Specialty Start Date End Date Benjamin Henao MD PCP - General Internal Medicine 07/24/[address] [place] [address] documented as of this encounter
--- OUTSIDE RECORDS SUMMARY | 2022-03-12 14:51 | XMS_ITS | Encounter Summary ---
:1945 Author Organization [facility] Address [address] [place] [address] Care Team Providers Name Role Phone Benjamin Henao MD Unavailable Benjamin Henao MD Primary Care Provider Encounter Details Date Type Department Care Team Description 08/28/2016 Records - [facility] CONVERSION Provider, Winter jacobsen Social History [...] on filedocumented in this encounter Care Teams Set Up / Operator Relationship Specialty Start Date End Date Benjamin Henao MD PCP - General Internal Medicine 07/24/16 1825 [place] [address] Benjamin Henao MD Assigned PCP 10/05/201824 [place] [address] documented as of this encounter
--- OUTSIDE RECORDS SUMMARY | 2022-03-12 14:51 | XMS_ITS | Encounter Summary ---
:1945 Author Organization [facility] Address [address] [place] [address] Care Team Providers Name Role Phone Eladio Nielsen Primary Care Provider Unavailable Benjamin Henao MD Primary Care Provider Reason for Visit Reason Comments Nutrition Counseling Encounter Details Date Type Department Care Team Description 01/05/2015 [facility] Ai Koenig Type I I or [facility] Jose R Sanchez RN unspecified type [place] diabetes mellitus [address] [place] without menti on of Drive complication, not [place], [place] as [phone] [facility] [phone] Social History Tobacco Use Types Packs/Day Years [...] activity 2. Consider weight loss programs at [facility] Appointments to be scheduled (Appointment center [phone]): Primary care visit Medication suggestions discussed with [...] uncontrolled documented in this encounter Care Teams Typesetters Printer Relationship Specialty Start Date End Date Eladio Nielsen PCP - General 08/14/11 07/23/16 Benjamin Henao MD PCP - General Internal Medicine 07/24/[address] [place] [address] documented as of this encounter
--- OUTSIDE RECORDS SUMMARY | 2022-03-12 14:51 | XMS_ITS | Encounter Summary ---
:1945 Author Organization [facility] Address [address] [place] [address] Care Team Providers Name Role Phone Eladio Nielsen Primary Care Provider Unavailable Benjamin Henao MD Primary Care Provider Reason for Visit Reason Comments Follow Up blood pressure, possible blo od work Encounter Details Date Type Department Care Team Description 11/07/2015 [facility], Type II or unspecified type diabetes mellitus without mention of complication, not stated as uncontrolled; [facility]E Obstructive sleep apnea (adult) (pediatr ic); [place] [address] [place] Unspecified essential hypert ension; [address] [address] Coronary atherosclerosis of unspecified type of vessel, [place] [phone] Social History Tobacco Use Types Packs/Day Years [...] Body Mass Index 46.57 03/11/2015 9:10 AM HAY CHOPPER documented in this encounter Progress Notes Benjamin [...] closed the clinic. 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 I, Will Avlaos, am scribing for and in the presence [...] 11/07/2015 [facility] % 10:[address] [facility] Specimen Anatomical Collection Method / Collection Time Recei nona Time (Source) Location / Volume Laterality Blood specimen Venipuncture / 11/07/2015 10:41 016 (specimen) Unknown AM CDT 10:41 AM CDT Benjamin Henao MD LAB - BLOOD ORDERABLES Performing Organization Address City/State/ZIP Code Phon e Number [facility] [address] [facility] [address] [address] CLINIC LABORATORY documented in this encounter Visit Diagnoses Diagnosis Type II or unspecified type diabetes mando litus without mention of complication, not stated as uncontrolled Obstructive sleep apnea (adult) (pediatr ic) Unspecified essential hypertension Coronary atherosclerosis of unspecified type of vessel, [place] or graft documented in this encounter Care Teams Crayon Sawyer Relationship Specialty Start Date End Date Eladio Nielsen PCP - General 08/14/11 07/23/16 Benjamin Henao MD PCP - General Internal Medicine 07/24/[address] [place] [address] documented as of this encounter
--- OUTSIDE RECORDS SUMMARY | 2022-03-12 14:51 | XMS_ITS | Encounter Summary ---
:1945 Author Organization [facility] Address [address] [place] [address] Care Team Providers Name Role Phone Eladio Nielsen Primary Care Provider Unavailable Benjamin Henao MD Primary Care Provider Reason for Visit Reason Comments Nutrition Counseling Encounter Details Date Type Department Care Team Description 12/22/2014 [facility] Ai Koenig Type I I or [facility] Jose R Sanchez RN unspecified type [place] diabetes mellitus [address] [place] without menti on of Drive complication, not [place], [place] stated as [phone] [facility] [phone] Social History Tobacco Use Types Packs/Day Years [...] this encounter Progress Notes Ai Koenig - 12/22/2014 2:16 PM CDT Assessment: Time [...] review Appointments to be scheduled (Appointment center [phone]): CDE (certified leak detection engineer) in two weeks Medication suggestions discussed with [...] have 2 eggs with plain toast or Lithuanian bread with a yogurt he mixes with olive oil. He drinks water with his meal. Lunch, patient will have a salad of cucumbers and tomatoes with Lithuanian bread. Sometimes he will have meat sandwich or leftovers from the night before. Dinner, patient eats a traditional Lithuanian meal most of the time. His will [...] uncontrolled documented in this encounter Care Teams Poultry Slaughterer Relationship Specialty Start Date End Date Eladio Nielsen PCP - General 08/14/11 07/23/16 Benjamin Henao MD PCP - General Internal Medicine 07/24/16 [address] [place] [address] documented as of this encounter
--- OUTSIDE RECORDS SUMMARY | 2022-03-12 14:51 | XMS_ITS | Encounter Summary ---
:1945 Author Organization [place] Address [address] [place] [address] Care Team Providers Name Role Phone Eladio Nielsen Primary Care Provider Unavailable Benjamin Henao MD Primary Care Provider Reason for Visit Reason Comments Diabetes check up Blood Pressure Check Encounter Details Date Type Department Care Team Description [facility], Type II or unspecified type diabetes mellitus without mention of complication, not stated as uncontrolled; [facility] Jose R FORTUNE Unspecified essential hypertension; [facility] [address] [place] Other and unspecified hyperl ipidemia; [address] Chronic reflux esophagitis [place], [place] [phone] Social History Tobacco Use Types Packs/Day [...] (306 lb 11.2 oz) 03/11/2015 9:10 AM TRANSPLANT NURSE PRACTITIONER Height 174 cm (5' 8.5) 03/11/2015 9:10 AM TRANSPLANT NURSE PRACTITIONER Body Mass Index 45.96 03/11/2015 9:10 AM TRANSPLANT NURSE PRACTITIONER documented in this encounter Progress Notes Juliano [...] all things are normal. He reports that [id number] he had an MRI done and it [...] for this visit. Total data points: 4 SPLANT NURSE PRACTITIONER documented in this encounter Plan of Treatment Not on filedocumented as of this encounter Procedures Procedure Name Priority Date/Time Associated Diagnosis Comme nts LIPID PROFILE Routine 03/11/2015 9:40 AM Results for this TRANSPLANT NURSE PRACTITIONER procedure are i n the results section . HEMOGLOBIN A1C Routine 03/11/2015 9:40 AM Results for this TRANSPLANT NURSE PRACTITIONER procedure are i n the results section . documented in this encounter Results (ABNORMAL) Hemoglobin A1c (03/11/2015 9:40 AM TRANSPLANT NURSE PRACTITIONER) [facility] Signature Hemoglobin A1C 7.7 (H) 3.5 - 6.0 03/11/2015 [facility] % 10:00 AM TRANSPLANT NURSE PRACTITIONER [facility] Specimen Anatomical Collection Method / Collection Time Recei nona Time (Source) Location / Volume Laterality Blood specimen Venipuncture / 03/11/2015 9:40 03/11/20 15 9:40 (specimen) Unknown AM TRANSPLANT NURSE PRACTITIONER AM TRANSPLANT NURSE PRACTITIONER Authorizing Provider Result Edel Henao MD LAB - BLOOD ORDERABLES Performing Organization Address City/State/ZIP Code Phon e Number [facility] [place] [address] [place] [address] [phone] CLINIC LABORATORY Lipid Profile (03/11/2015 9:40 AM TRANSPLANT NURSE PRACTITIONER) [facility] gist Method Time Signature Cholesterol 135 <=199 03/11/2015 HEALTH mg/dL 3:29 PM TRANSPLANT NURSE PRACTITIONER [facility] Triglycerides 118 <=149 03/11/2015 HEALTH mg/dL 3:29 PM TRANSPLANT NURSE PRACTITIONER [facility] Direct Measure HDL 41 >=40 mg/dL 03/11/2015 HEALTH 3:29 PM TRANSPLANT NURSE PRACTITIONER [facility] LDL Cholesterol 70 <=129 03/11/2015 HEALTH Calculated mg/dL 3:29 PM TRANSPLANT NURSE PRACTITIONER [facility] Patient Fasting > Yes 03/11/2015 HEALTH 8hrs? 3:29 PM [facility] Specimen Anatomical Collection Method / Collection Time Recei nona Time (Source) Location / Volume Laterality Blood specimen Venipuncture / 03/11/2015 9:40 03/11/20 15 2:16 (specimen) Unknown AM TRANSPLANT NURSE PRACTITIONER PM TRANSPLANT NURSE PRACTITIONER Authorizing Provider Result Edel Henao MD LAB - BLOOD ORDERABLES Performing Organization Address City/State/ZIP Code Phon e Number [facility] [place] [address] [address] [facility] documented in this encounter Visit Diagnoses Diagnosis Type II or unspecified type diabetes mando litus without mention of complication, not stated as uncontrolled Unspecified essential hypertension Other and unspecified hyperlipidemia Chronic reflux esophagitis documented in this encounter Care Teams Final Assembler Relationship Specialty Start Date End Date Eladio Nielsen PCP - General 08/14/11 07/23/16 Benjamin Henao MD PCP - General Internal Medicine 07/24/[address] [place] [address] documented as of this encounter
--- OUTSIDE RECORDS SUMMARY | 2022-03-12 14:51 | XMS_ITS | Encounter Summary ---
:1945 Author Organization [place] Address [address] [place] [address] Care Team Providers Name Role Phone Eladio Nielsen Primary Care Provider Unavailable Benjamin Henao MD Primary Care Provider Reason for Visit Reason Comments Follow Up f/u on dm Encounter Details Date Type Department Care Team Description 05/08/2016 [facility], Type 2 diabetes mellitus (H); [facility] Jose R FORTUNE [facility]cytic anemia[facility] Obesity, unspecified [address] [facility] [place] [address] Social History Tobacco Use Types Packs/Day [...] 143.3 kg (316 lb) 05/08/2016 2:52 PM FLOOR COVERING LAYER Height - - Body Mass Index 47.35 03/11/2015 9:10 AM FLOOR COVERING LAYER documented in this encounter Progress Notes Benjamin [...] consult with a bariatric surgeon in the [facility]. He is agreeable to consulting with Dr. Lebron Baca with [facility]. Erectile dysfunction: He inquires about generic alternatives to brand name Viagra for his erectile dysfunction. He requests a written prescription for 10 tablets of 100 mg sildenafil to allow him to fill his prescription through either a [place] pharmacy or an alternative local pharmacy with a cheaper ritchie per [employer]. Health maintenance: He is due to receive [...] for this visit. Total data points: 1 R COVERING LAYER documented in this encounter Plan of Treatment Not on filedocumented as of this encounter Procedures Procedure Name Priority Date/Time Associated Diagnosis Comme nts HEMOGLOBIN A1C Routine 05/08/2016 3:25 PM Results for this FLOOR COVERING LAYER procedure are i n the results section . documented in this encounter Results (ABNORMAL) Hemoglobin A1c (05/08/2016 3:25 PM FLOOR COVERING LAYER) Analysis Performed At [facility]o logist Time Signature Hemoglobin A1C 8.1 (H) 3.5 - 6.0 05/08/2016 [facility] % 3:53 PM FLOOR COVERING LAYER [facility] Specimen Anatomical Collection Method / Collection Time Recei nona Time (Source) Location / Volume Laterality Blood specimen Venipuncture / 05/08/2016 3:25 05/08/19 17 3:25 (specimen) Unknown PM FLOOR COVERING LAYER PM FLOOR COVERING LAYER Benjamin Henao MD LAB - BLOOD ORDERABLES Performing Organization Address City/State/ZIP Code Phon e Number [facility] [address] [place] [phone] CLINIC LABORATORY documented in this encounter Visit Diagnoses Diagnosis Type 2 diabetes mellitus (H) Type II or unspecified type diabetes mando litus without mention of complication, not stated as uncontrolled Microcytic anemia Iron deficiency anemia, unspecified Obesity, unspecified documented in this encounter Care Teams All Terrain Vehicle Racer Relationship Specialty Start Date End Date Eladio Nielsen PCP - General 08/14/11 07/23/16 Benjamin Henao MD PCP - General Internal Medicine 07/24/16 [address] [place] [address] documented as of this encounter
--- OUTSIDE RECORDS SUMMARY | 2022-03-12 14:51 | XMS_ITS | Encounter Summary ---
:1945 Author Organization [place] Address [address] [place] [address] Care Team Providers Name Role Phone Eladio Nielsen Primary Care Provider Unavailable Benjamin Henao MD Unavailable Benjamin Henao MD Primary Care Provider Encounter Details Date Type Department Care Team Description 02/18/2015 Records - [facility] CONVERSION Provider, Winter jacobsen Social History [...] on filedocumented in this encounter Care Teams Floor Care Technician Relationship Specialty Start Date End Date Eladio Nielsen PCP - General 08/14/11 07/23/16 Benjamin Henao MD PCP - General Internal Medicine 07/24/[address] [place] [address] Benjamin Henao MD Assigned PCP 10/05/[address] [place] [address] documented as of this encounter
--- OUTSIDE RECORDS SUMMARY | 2022-03-12 14:51 | XMS_ITS | Encounter Summary ---
:1945 Author Organization [place] Address [address] [place] [address] Care Team Providers Name Role Phone Eladio [...] on filedocumented in this encounter Care Teams Cardiac Rehab Nurse Relationship Specialty Start Date End Date Eladio Nielsen PCP - General 08/14/11 07/23/16 Benjamin Henao MD PCP - General Internal Medicine 07/24/16 [address] [place] [address] documented as of this encounter
--- OUTSIDE RECORDS SUMMARY | 2022-03-12 14:51 | XMS_ITS | Encounter Summary ---
:1945 Author Organization [place] Address [address] [place] [address] Care Team Providers Name Role Phone Eladio Nielsen Primary Care Provider Unavailable Benjamin Henao MD Primary Care Provider Encounter Details Date Type Department Care Team Description 11/11/2015 Amb[facility] - [facility] [place] [facility] [address] [place] [address] [place] [address] [place] [address] Social History Tobacco Use Types [...] unspecified documented in this encounter Care Teams Golf Cart Assembler Relationship Specialty Start Date End Date Eladio Nielsen PCP - General 08/14/11 07/23/16 Benjamin Henao MD PCP - General Internal Medicine 07/24/[address] [place] [phone] documented as of this encounter
--- OUTSIDE RECORDS SUMMARY | 2022-03-12 14:52 | XMS_ITS | Encounter Summary ---
:1945 Author Organization [place] Address [address] [place] [address] Care Team Providers Name Role Phone Eladio Nielsen Primary Care Provider Unavailable Benjamin Henao MD Unavailable Benjamin Henao MD Primary Care Provider Encounter Details Date Type Department Care Team Description 08/27/2013 Records - [facility] Brian Nielsen [address] [phone] Social History Tobacco Use Types Packs/Day [...] (08/27/2013 10:17 AM CDT) Analysis Performed At [facility] Time Signature Hemoglobin A1C 7.3 (H) 3.5 - 6.0 08/27/2013 [facility] % 10:17 AM CDT [facility] Specimen Anatomical Collection Method Collection Time Receive d Time (Source) Location / / Volume Laterality 08/27/2013 10:17 08/27/2013 AM CDT 10:17 AM CDT Eladio Nielsen LAB - BLOOD ORDERABLES Performing Organization Address City/[facility]/ZIP Code Phon e Number [facility] [place] [address] [phone] CLINIC LABORATORY LDL cholesterol direct (08/27/2013 10:17 AM CDT) athologist Signature LDL Cholesterol 77 <130 mg/dL 08/27/2013 HEALTH Direct 10:17 AM CDT [facility] Specimen Anatomical Collection Method Collection Time Receive d Time (Source) Location / / Volume Laterality 08/27/2013 10:17 08/27/2013 AM CDT 10:17 AM CDT Eladio Nielsen LAB - BLOOD ORDERABLES Performing Organization Address City/[facility] Phon e [place] [address] [phone] [address] [facility] documented in this encounter Visit Diagnoses Not on filedocumented in this encounter Care Teams Bin Filler Relationship Specialty Start Date End Date Eladio Nielsen PCP - General 08/14/11 07/23/16 Benjamin Henao MD PCP - General Internal Medicine 07/24/[address] [place] [address] Benjamin Henao MD Assigned PCP 10/05/[address] [place] [address] documented as of this encounter
--- OUTSIDE RECORDS SUMMARY | 2022-03-12 14:52 | XMS_ITS | Encounter Summary ---
:1945 Author Organization [place] Address [address] [place] [address] Care Team Providers Name Role Phone Eladio Nielsen Primary Care Provider Unavailable Benjamin Henao MD Primary Care Provider Reason for Visit Reason Comments Hypertension Diabetes fasting - yes Medication Refill insurance cover cialis - wou ld like the generic for viagra Encounter Details Date Type Department Care Team Description 09/01/2014 [facility], Unsp ecified essential hypertension; [facility] Jose R FORTUNE Type II or unspecified type diabetes mando litus without mention of complication, not stated as uncontrolled; [facility] [facility] (erectile dysfunction) [address] [place] [phone] Social History Tobacco Use Types Packs/Day Years [...] origin documented in this encounter Care Teams Transfer Pumper Relationship Specialty Start Date End Date Eladio Nielsen PCP - General 08/14/11 07/23/16 Benjamin Henao MD PCP - General Internal Medicine 07/24/16 [address] [place] [phone] documented as of this encounter
--- OUTSIDE RECORDS SUMMARY | 2022-03-12 14:52 | XMS_ITS | Encounter Summary ---
:1945 Author Organization [place] Address [address] [place] [address] Care Team Providers Name Role Phone Eladio Nielsen Primary Care Provider Unavailable Benjamin Henao MD Primary Care Provider Encounter Details Date Type Department Care Team Description 04/01/2014 [facility] Provider, [facility] Information Management [address] [facility] [address] [place] [address] Social History Tobacco Use Types Packs/Day Years [...] on filedocumented in this encounter Care Teams Electrical Engineering Draftsperson Relationship Specialty Start Date End Date Eladio Nielsen PCP - General 08/14/11 07/23/16 Benjamin Henao MD PCP - General Internal Medicine 07/24/16 [address] [place] [address] documented as of this encounter
--- OUTSIDE RECORDS SUMMARY | 2022-03-12 14:52 | XMS_ITS | Encounter Summary ---
:1945 Author Organization [place] Address [address] [place] [address] Care Team Providers Name Role Phone Eladio Nielsen Primary Care Provider Unavailable Benjamin Henao MD Primary Care Provider Encounter Details Date Type Department Care Team Description 01/07/2014 Ambulatory - [facility] Eladio Nielsen Type II or [facility] Provider, Historical unspecified type [place] diabetes mellitus [address] [place] without menti on of Drive complication, not [place] [address] [facility] [phone] Social History Tobacco Use Types Packs/Day Years [...] (01/07/2014 9:41 AM CDT) Analysis Performed At [facility] logist Time Signature Hemoglobin A1C 7.0 (H) 3.5 - 6.0 01/07/2014 HEALTH % 10:03 AM CDT [facility] Specimen Anatomical Collection Method / Collection Time Recei nona Time (Source) Location / Volume Laterality Blood specimen Venipuncture / 01/07/2014 9:41 01/08/20 14 9:42 (specimen) Unknown AM CDT AM CDT Eladio Nielsen LAB - BLOOD ORDERABLES Performing Organization Address City/State/ZIP Code Phon e Number [facility] [address] [place] [phone] CLINIC LABORATORY documented in this encounter Visit Diagnoses Diagnosis Type II or unspecified type diabetes mando litus without mention of complication, not stated as uncontrolled documented in this encounter Care Teams Dry Food Products Mixer Relationship Specialty Start Date End Date Eladio Nielsen PCP - General 08/14/11 07/23/16 Benjamin Henao MD PCP - General Internal Medicine 07/24/16 [address] [place] [address] documented as of this encounter
--- OUTSIDE RECORDS SUMMARY | 2022-03-12 14:52 | XMS_ITS | Encounter Summary ---
:1945 Author Organization [place] Address [address] [place] [address] Care Team Providers Name Role Phone Eladio Nielsen Primary Care Provider Unavailable Benjamin Henao MD Primary Care Provider Reason for Visit Reason Comments Diabetes Encounter Details Date Type Department Care Team Description [facility]/20/2014 [facility] Type II or unspecified type diabetes mellitus without mention of complication, not stated as uncontrolled; [facility] Provider, Historical Other and unspecified hyperlipidemia [facility] [address] [place] [address] Social History Tobacco Use Types [...] 139.3 kg (307 lb) 05/20/2014 7:45 AM DRY PRESS OPERATOR HELPER Height - - Body Mass Index 45.34 [...] feels well. He has recently seen his stock receiver who switched his simvastatin to Lipitor. He [...] Routine 05/20/2014 8:01 AM Results for this DRY PRESS OPERATOR HELPER procedure are i n the results section . HEMOGLOBIN A1C Routine 05/20/2014 8:01 AM Results for this DRY PRESS OPERATOR HELPER procedure are i n the results section . documented in this encounter Results (ABNORMAL) Hemoglobin A1c (05/20/2014 8:01 AM DRY PRESS OPERATOR HELPER) Analysis Performed At Path logist Time Signature Hemoglobin A1C 7.4 (H) 3.5 - 6.0 05/20/2014 [facility] % 8:25 AM DRY PRESS OPERATOR HELPER [facility] Specimen Anatomical Collection Method / Collection Time Recei nona Time (Source) Location / Volume Laterality Blood specimen Venipuncture / 05/20/2014 8:01 05/20/19 15 8:01 (specimen) Unknown AM DRY PRESS OPERATOR HELPER AM DRY PRESS OPERATOR HELPER Eladio Nielsen LAB - BLOOD ORDERABLES Performing Organization Address City/[facility]/[place] [facility] Phon e Number [facility] [place] [address] [place] [phone] CLINIC LABORATORY (ABNORMAL) Lipid Profile (05/20/2014 8:01 AM DRY PRESS OPERATOR HELPER) [facility] gist Method Time Signature Triglycerides 226 (H) <=149 05/20/2014 HEALTH mg/dL 4:48 PM DRY PRESS OPERATOR HELPER [facility] Cholesterol 140 <=199 05/20/2014 HEALTH mg/dL 4:48 PM [facility] LDL Cholesterol 54 0 - 129 05/20/2014 HEALTH Calculated mg/dL 4:48 PM DRY PRESS OPERATOR HELPER [facility] Direct Measure 41 >=40 05/20/2014 [facility] HDL mg/dL 4:48 PM DRY PRESS OPERATOR HELPER [facility] Specimen Anatomical Collection Method / Collection Time Recei nona Time (Source) Location / Volume Laterality Blood specimen Venipuncture / 05/20/2014 8:01 05/20/19 15 3:53 (specimen) Unknown AM DRY PRESS OPERATOR HELPER PM DRY PRESS OPERATOR HELPER Eladio Nielsen LAB - BLOOD ORDERABLES Performing Organization Address City/[facility] Phon [place] [address] [facility]-[address] [address] [facility] documented in this encounter Visit Diagnoses Diagnosis Type II or unspecified type diabetes mando litus without mention of complication, not stated as uncontrolled Other and unspecified hyperlipidemia documented in this encounter Care Teams Editorial Clerk Relationship Specialty Start Date End Date Eladio Nielsen PCP - General 08/14/11 07/23/16 Benjamin Henao MD PCP - General Internal Medicine 07/24/16 [address] [place] [address] documented as of this encounter
--- OUTSIDE RECORDS SUMMARY | 2022-03-12 14:52 | XMS_ITS | Encounter Summary ---
:1945 Author Organization [place] Address [address] [place] [address] Care Team Providers Name Role Phone Eladio Nielsen Primary Care Provider Unavailable Reason for Visit Auth/Cert - Closed Specialty Diagnoses / Procedures Referred By Contact Refer red To Contact Gastroenterology Diagnoses Polyp History Rh Endoscopy Procedures COLONOSCOPY [address] [place] [address] Phone: Fax: Referral ID Status Reason Start Date Expiration Date Visits Requ ested Visits Authorized [id number] Closed 08/14/2011 02/10/2012 1 1 Encounter Details Date Type Department Care Team Description 08/29/2011 Surgery [facility] Endoscopy Duncan Lucas MD COLONOSCOPY [place] XXX RETIRED XXX [address] [facility] [place] [address] [place] [address] [phone] Surgery Details Date/Time Status Location OR Service Patient Class Case Case Trauma Class Type Case? 08/29/11 1:30 Posted RH GI GI A Gastroenterology Outpatient PM Panel 1 Procedure LRB Anes Op Region Wound Class Commen ts COLONOSCOPY N/A Conscious Sedation Rectum II-Clean Contami nated COLONOSCOPY Surgeon Surgeon Role Service Panel Ducnan Lucas MD Primary Gastroenterology 1 Special Needs [...] [facility] Method Time Signature COLONOSCOPY [facility] RAD IOLOGY RESULTS Patient Name: Faith [...] Intra-procedure documented in this encounter Care Teams Conveyor Maintenance Mechanic Relationship Specialty Start Date End Date Eladio Nielsen PCP - General 08/14/11 07/23/16 documented as of this encounter
--- OUTSIDE RECORDS SUMMARY | 2022-03-12 14:52 | XMS_ITS | Encounter Summary ---
:1945 Author Organization [place] Address [address] [place] [address] Care Team Providers Name Role Phone Eladio Nielsen Primary Care Provider Unavailable Benjamin Henao MD Primary Care Provider Encounter Details Date Type Department Care Team Description 05/20/2014 [facility] Yudy Adams [address] [address] [facility] [phone] Social History Tobacco Use Types Packs/Day Years [...] on filedocumented in this encounter Care Teams Documentation Supervisor Relationship Specialty Start Date End Date Eladio Nielsen PCP - General 08/14/11 07/23/16 Benjamin Henao MD PCP - General Internal Medicine 07/24/[address] [place] [address] documented as of this encounter
--- OUTSIDE RECORDS SUMMARY | 2022-03-12 14:52 | XMS_ITS | Encounter Summary ---
:1945 Author Organization [place] Address [address] [place] [address] Care Team Providers Name Role Phone Eladio Nielsen Primary Care Provider Unavailable Benjamin Henao MD Primary Care Provider Encounter Details Date Type Department Care Team Description 05/20/2014 [facility] Eladio Nielsen [facility] Provider, [facility] [address] [place] [address] Social History Tobacco Use Types [...] on filedocumented in this encounter Care Teams Shirt Marker Relationship Specialty Start Date End Date Eladio Nielsen PCP - General 08/14/11 07/23/16 Benjamin Henao MD PCP - General Internal Medicine 07/24/163 [place], [place] [phone] documented as of this encounter
--- OUTSIDE RECORDS SUMMARY | 2022-03-12 14:52 | XMS_ITS | Encounter Summary ---
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
--- OUTSIDE RECORDS SUMMARY | 2022-03-12 14:52 | XMS_ITS | Encounter Summary ---
:1945 Author Organization [place] Address [address] [place] [address] Care Team Providers Name Role Phone Eladio Nielsen Primary Care Provider Unavailable Benjamin Henao MD Unavailable Benjamin Henao MD Primary Care Provider Encounter Details Date Type Department Care Team Description 04/10/2013 [facility] Brian Nielsen [address] [address] [facility] [phone] Social History Tobacco Use Types Packs/Day Years [...] 04/10/2013 12:45 PM Result s for this SMALL ANIMAL CARETAKER procedure are i n the results section . documented in this encounter Results (ABNORMAL) Hemoglobin A1c (04/10/2013 12:45 PM SMALL ANIMAL CARETAKER) Analysis Performed At Patho logist Time Signature Hemoglobin A1C 7.3 (H) 3.5 - 6.0 04/10/2013 [facility] 12:45 PM SMALL ANIMAL CARETAKER [facility] Specimen Anatomical Collection Method Collection Time Receive d Time (Source) Location / / Volume Laterality 04/10/2013 12:45 04/10/2013 PM SMALL ANIMAL CARETAKER 12:45 PM SMALL ANIMAL CARETAKER Eladio Nielsen LAB - BLOOD ORDERABLES Performing Organization Address City/State/ZIP Code Phon e Number [facility] [place] [address] [place] [phone] CLINIC LABORATORY documented in this encounter Visit Diagnoses Not on filedocumented in this encounter Care Teams Gas Brazer Relationship Specialty Start Date End Date Eladio Nielsen PCP - General 08/14/11 07/23/16 Benjamin Henao MD PCP - General Internal Medicine 07/24/[address] [place] [address] Benjamin Henao MD Assigned PCP 10/05/[address] [place] [address] documented as of this encounter
--- OUTSIDE RECORDS SUMMARY | 2022-03-12 14:52 | XMS_ITS | Encounter Summary ---
:1945 Author Organization [place] Address [address] [place] [address] Care Team Providers Name Role Phone Eladio Nielsen Primary Care Provider Unavailable Benjamin Henao MD Unavailable Benjamin Henao MD Primary Care Provider Encounter Details Date Type Department Care Team Description 08/29/2011 Records - [facility] Provider, Histor ical Social History [...] on filedocumented in this encounter Care Teams Compensation And Benefits Analyst Relationship Specialty Start Date End Date Eladio Nielsen PCP - General 08/14/11 07/23/16 Benjamin Henao MD PCP - General Internal Medicine 07/24/16 [address] [place] [address] Benjamin Henao MD Assigned PCP 10/05/20 [address] [place] [address] documented as of this encounter
--- OUTSIDE RECORDS SUMMARY | 2022-03-12 14:52 | XMS_ITS | Encounter Summary ---
:1945 Author Organization [place] Address [address] [place] [address] Care Team Providers Name Role Phone Eladio Nielsen Primary Care Provider Unavailable Benjamin Henao MD Primary Care Provider Reason for Visit Reason Comments Diabetes Encounter Details Date Type Department Care Team Description [facility]2014 [facility] Provider, Historical unspecified type [facility] diabetes mellitus [address] [place] without menti on of Drive complication, not [place], [place] [phone] [facility] [phone] Social History Tobacco Use Types Packs/Day Years [...] (11/19/2014 8:35 AM CDT) Analysis Performed At [facility] Time Signature Hemoglobin A1C 7.1 (H) 3.5 - 6.0 11/19/2014 [facility] 9:19 AM CDT [facility] Specimen Anatomical Collection Method / Collection Time Recei nona Time (Source) Location / Volume Laterality Blood specimen Venipuncture / 11/19/2014 8:35 11/20/19 15 8:35 (specimen) Unknown AM CDT AM CDT Eladio Nielsen LAB - BLOOD ORDERABLES Performing Organization Address City/State/ZIP Code Phon e Number [facility] [place] [address] [place] [phone] CLINIC LABORATORY documented in this encounter Visit Diagnoses Diagnosis Type II or unspecified type diabetes mando litus without mention of complication, not stated as uncontrolled documented in this encounter Care Teams Sports Information Director Relationship Specialty Start Date End Date Eladio Nielsen PCP - General 08/14/11 07/23/16 Benjamin Henao MD PCP - General Internal Medicine 07/24/[address] [place] [address] documented as of this encounter
--- OUTSIDE RECORDS SUMMARY | 2022-03-12 14:52 | XMS_ITS | Encounter Summary ---
:1945 Author Organization [place] Address [address] [place] [address] Care Team Providers Name Role Phone Eladio Nielsen Primary Care Provider Unavailable Benjamin Henao MD Primary Care Provider Encounter Details Date Type Department Care Team Description 01/07/2014 Ambulatory - [facility] Eladio Nielsen Type II or [facility] Provider, Historical unspecified type [facility] diabetes mellitus 1824 [facility] without menti on of Drive complication, not [place] [phone] uncontrolled [phone] Social History Tobacco Use Types Packs/Day Years [...] uncontrolled documented in this encounter Care Teams Compliance Counsel Relationship Specialty Start Date End Date Eladio Nielsen PCP - General 08/14/11 07/23/16 Benjamin Henao MD PCP - General Internal Medicine 07/24/16 [address] [place], [place] [phone] documented as of this encounter
--- OUTSIDE RECORDS SUMMARY | 2022-03-12 14:53 | XMS_ITS | Encounter Summary ---
:1945 Author Organization [place] Address [address] [place] [address] Care Team Providers Name Role Phone Unavailable Primary Care Provider Unavailable Encounter Details Date Type Department Care Team Description 08/13/2007 Historic Results INTERFACED REPORT Lainey Porter [place] [address] (Wo rk) Social History Tobacco Use Types [...] Range Method Time At Signature Copath CASE: [id number] ^ COPATH Report Patient Name: FAITH ADAMES MR#: [id number] Specimen #: [id number] Collected: 08/13/2007 Received: 08/13/2007 Reported: 08/14/2007 13:25 [...] iden tified. MGP/kd 08-14-07 TESTING LAB LOCATION: [address] ??[phone] COLLECTION SITE: Client: [facility] Location: ENDO (R) Specimen (Source) Anatomical Collection Method Collection Time Re ceived Time Location / / Volume Laterality 08/13/2007 08/14/2007 1:25 PM CDT Lainey Porter MD LAB - COPATH SPECIAL DIAG OR DERABLES Performing Organization Address City/State/ZIP Code Phon e Number COPATH documented in this encounter Visit Diagnoses Not on filedocumented in this encounter
--- OUTSIDE RECORDS SUMMARY | 2022-03-12 14:53 | XMS_ITS | Encounter Summary ---
:1945 Author Organization [place] Address [address] [place] [address] Care Team Providers Name Role Phone Unavailable Primary Care Provider Unavailable Encounter Details Date Type Department Care Team Description 06/28/2004 GI Procedure [facility] Duncan Lucas MD None Endoscopy [place] XX RETIRED XXX [address] [facility] [place] [address] [place] [address] [phone] Social History Tobacco Use Types Packs/Day Years Used Date Smoking Tobacco: Never Assessed Sex Assigned at Date Recorded Not on file documented as of this encounter Plan of Treatment Not on filedocumented as of this encounter Procedures Procedure Name Priority Date/Time Associated Diagnosis Comme nts UPPER GI ENDOSCOPY Routine 06/28/2004 8:10 AM Res ults for this LEADER TIER procedure are i n the results section. COLONOSCOPY Routine 06/28/2004 7:10 AM Results f or this LEADER TIER procedure are i n the results section. documented in this encounter Results UPPER GI ENDOSCOPY (06/28/2004 8:10 AM LEADER TIER) Component Value Ref Test Analysis Performed At [facility] Method Time Signature Upper GI [facility] RADIOLOGY Endoscopy RESULTS Patient Name: Faith Adames [...] monitored ? con tinuously. The Gastrocope [id number] #[id number] was introduced ? through the [facility] , and advanced to the third part [...] / / Volume Laterality 06/28/2004 8:10 AM LEADER TIER Duncan Lucas MD PROCEDURES Performing Organization Address City/State/ZIP Code Phon e Number RADIOLOGY RESULTS COLONOSCOPY (06/28/2004 7:10 AM LEADER TIER) [facility] gist Method Time Signature COLONOSCOPY [facility] RADIOLOGY RESULTS Patient Name: Faith Adames ?Gender: [...] monitored ? con tinuously. The Colonoscope P-57 #[id number] was introduced ? thr ough the anus [...] / / Volume Laterality 06/28/2004 7:10 AM LEADER TIER Duncan Lucas MD PROCEDURES Performing Organization Address City/State/ZIP Code Phon e Number RADIOLOGY RESULTS documented in this encounter Visit Diagnoses Not on filedocumented in this encounter
--- OUTSIDE RECORDS SUMMARY | 2022-03-12 14:53 | XMS_ITS | Clinical Summary ---
:1945 Author Organization [employer] [facility] [place] [address] Care Team Providers Name Role Phone Avery [...] Encounters Date Type Specialty Care Team Description 03/07/2022 Lab Requisition Sean Navarro MD 01/23/2022 Ancillary Procedure 01/23/2022 Travel from Last [...] CDT Respiratory Rate 16 03/06/2021 3:17 PM OCULAR CARE TECHNOLOGIST Oxygen Saturation 99% 08/14/2021 11:39 AM CDT [...] Name Priority Date/Time Associated Diagnosis Comme nts LAB TRACKING EVENT Routine 03/06/2022 10:40 AM OCULAR CARE TECHNOLOGIST PATH TISSUE EXAM Routine 03/06/2022 10:40 AM Resu lts for this OCULAR CARE TECHNOLOGIST procedure are i n the results section. CT ABDOMEN PELVIS Routine 01/23/2022 10:45 AM Kidney stones Re sults for this STONE PROTOCOL WO CDT procedure are in the results section. from Last 3 Months Results LAB TRACKING EVENT (03/06/2022 10:40 AM OCULAR CARE TECHNOLOGIST) Specimen Anatomical Collection Method Collection Time Receive d Time (Source) Location / / Volume Laterality Other (Other) Client Collect / 03/06/2022 10:40 2021 2:35 Unknown AM OCULAR CARE TECHNOLOGIST PM OCULAR CARE TECHNOLOGIST Sean Navarro MD LAB BILL ONLY Performing Organization Address City/State/ZIP Code Phon e Number [facility] [address] [place] [address] LABORATORY-CENTRAL 1999 LABORATORY PATH TISSUE EXAM (03/06/2022 10:40 AM OCULAR CARE TECHNOLOGIST) Component Value Ref Test Analysis Performed At [facility] gist Range Method Time Signature Case Report Pathology Report ?Case: [id number] ? 03/08/2022 [facility] Authorizing Provider: ??Sean Vallecillo MD ?Collected: ? 03/06/2022 1040 ? 10:05 AM HEALTH Ordering Location: ? L CENTRAL LAB ?Received: ?03/07/2022 1911 ? JORGE QUEZADA Pathologist: ? Paco, Preet, ? ENTRAL Specimens: ?? A) - Jejunal B iopsy ? LABORATORY ? B) - Francis sarah Biopsy, gastric pouch ? C) - Francis sarah Biopsy, gastric pouch greater curve ? Final A) JEJUNUM, BIOPSY: 03/08/2022 [facility] Electronically Diagnosis 1. Normal small intestinal mucosa 10:05 AM HEALTH signed by 2. Negative for celiac disease and other enteropathy OCULAR CARE TECHNOLOGIST LABORATORY-C DOREEN Antonio MD on B-C) STOMACH, POUCH, POUCH GREATER CURVE, BIOPSY: LABORATORY 03/08/2022 at 1. Mild non-erosive reactive gastropathy (see comment) 10:05 AM ?? a. Sampling: Antrum and body ?? b. Distribution: Antrum 2. Negative for inflammation, atrophy and Helicobacter Comment B-C) The likely 03/08/2022 [facility] etiology is an 10:05 AM HEALTH ongoing OCULAR CARE TECHNOLOGIST LABORATORY-C non-inflammatory ENTRAL type mucosal LABORATORY injury due to a chemical type of injury; this may be due to ingestion of non-steroidal anti-inflammator y drugs, aspirin (via prostaglandin-me diated injury), excess alcohol, corticosteroids, or bile/alkaline reflux, the latter usually in the setting of a gastroenteric anastomosis. Clinical Mr. Adames is 03/08/2022 [facility] Information a 76 y.o. male 10:05 AM HEALTH with suspected OCULAR CARE TECHNOLOGIST LABORATORY-C upper GI ENTRAL bleeding LABORATORY undergoing an upper GI endoscopy which showed changes of gastric bypass and congestive gastropathy. Gross A) Received in formalin are 4 joshi mucosal fragments averaging 4 mm in greatest dimension, which are entirely submitted in one cassette. It is labeled with the patient's name and designated jejunum biopsies. 03/08/2022 [facility] Description 10:05 AM HEALTH B) Received in formalin are 3 joshi mucosal fragments ranging from 3 mm to 6 mm in greatest dimension, which are entirely submitted in one cassette. It is labeled with the patient's name and designated gastric pouch biopsies. OCULAR CARE TECHNOLOGIST LABORATORY-C ENTRAL C) Received in formalin are 4 joshi mucosal fragments ranging from 4 mm to 5 mm in greatest dimension, which are entirely submitted in one cassette. It is labeled with the patient's name and designated gastric pouch greater curve BX. LABORATORY Delmi Cook 03/07/2022 8:30 PM Microscopic The final 03/08/2022 [facility] Description diagnosis is 10:05 AM HEALTH based on OCULAR CARE TECHNOLOGIST LABORATORY-C microscopic ENTRAL examination of LABORATORY appropriate sections of all specimens. Additional 03/08/2022 [facility] Information Interpreted at [facility], Central Laboratory - [address], [place] [address] 10:05 AM HEALTH OCULAR CARE TECHNOLOGIST LABORATORY-C ENTRAL LABORATORY Specimen Anatomical Collection Method Collection Time Receive d Time (Source) Location / / Volume Laterality Other GASTRIC BIOPSY 03/06/2022 10:40 2 7:11 SPECIMEN / Unknown AM OCULAR CARE TECHNOLOGIST PM OCULAR CARE TECHNOLOGIST Specimen GASTRIC BIOPSY 03/06/2022 10:40 2 7:11 (specimen) SPECIMEN / Unknown AM OCULAR CARE TECHNOLOGIST PM OCULAR CARE TECHNOLOGIST Specimen GASTRIC BIOPSY 03/06/2022 10:40 2 7:11 (specimen) SPECIMEN / Unknown AM OCULAR CARE TECHNOLOGIST PM OCULAR CARE TECHNOLOGIST Sean Navarro MD PATHOLOGY/CYTOLOGY Performing Organization Address City/State/ZIP Code Phon e Number [facility] [address] [place] [address] LABORATORY-CENTRAL [address] ABDOMEN PELVIS STONE PROTOCOL WO (01/23/2022 [...] report s are released immediately into your [facility] record. ??You may view this report [...] provider. If you have questions, please contact [facility] care provider. Indication: Kidney stone Technique: Noncontrast [...] Group MEDICARE PART A MEDICARE PART A [id number] 2010-Present ATTN: CLAIMS - HB USE ONLY HB ONLY [address] [facility] [place] [address] UCARE UCJASE MEDICARE [id number] 2019-Present [address] [place] [address] Advance Directives Latest Code Status on File Code Status Date Activated Date Inactivated Comments Full Code 02/14/2021 5:51 AM 02/14/2021 12:52 PM Code Status Discussion: Not Discussed Care Teams Industrial Engineering Relationship Specialty Start Date End Date Ai Clarke, PCP - General Internal Medicine 02/02/21 [address] [place] [address] Avery Waldrop, Consulting Physician Cardiovascular Disease 11/22 05/06
--- OUTSIDE RECORDS SUMMARY | 2022-03-12 14:53 | XMS_ITS | Encounter Summary ---
:1945 Author Organization [place] Address [address] [place] [address] Care Team Providers Name Role Phone Unavailable Primary Care Provider Unavailable Encounter Details Date Type Department Care Team Description 06/28/2004 Historic Results INTERFACED REPORT Lainey Porter [place] [address] (Wo rk) Social History Tobacco Use Types Packs/Day Years Used Date Smoking Tobacco: Never Assessed Sex Assigned at Date Recorded Not on file documented as of this encounter Plan of Treatment Not on filedocumented as of this encounter Procedures Procedure Name Priority Date/Time Associated Diagnosis Comme nts HISTOPATHOLOGY Routine 06/28/2004 12:00 AM Result s for this MIDDLEWARE SYSTEMS ARCHITECT procedure are i n the results section . documented in this encounter Results Histopathology (06/28/2004 12:00 AM MIDDLEWARE SYSTEMS ARCHITECT) Component Value Ref Test Analysis Performed At [facility] Range Method Time Signature Copath Report CASE: [id number] ^ COPATH MR#: [id number] Patient Name: FAITH ADAMES Collected: 06/28/2004 Received: [...] / Volume Laterality 06/28/2004 06/29/2004 4:46 PM MIDDLEWARE SYSTEMS ARCHITECT Lainey Porter MD LAB - COPATH SPECIAL DIAG OR DERABLES Performing Organization Address City/State/ZIP Code Phon e Number [facility]ATH documented in this encounter Visit Diagnoses Not on filedocumented in this encounter
--- OUTSIDE RECORDS SUMMARY | 2022-03-12 14:53 | XMS_ITS | Encounter Summary ---
:1945 Author Organization [place] Address [address] [place] [address] Care Team Providers Name Role Phone Eladio Nielsen Primary Care Provider Unavailable Reason for Visit Auth/Cert - Closed Specialty Diagnoses / Procedures Referred By Contact Refer red To Contact Gastroenterology Diagnoses Polyp History Rh Endoscopy Procedures COLONOSCOPY [address] [place] [address] Phone: Fax: Referral ID Status Reason Start Date Expiration Date Visits Requ ested Visits Authorized [id number] Closed 08/14/2011 02/10/2012 1 1 Encounter Details Date Type Department Care Team Description 08/29/2011 Hospital Encounter [facility] Goran Lucas MD Endoscopy [place] XXX RETIRED XXX [address] [facility] [place] [address] [place], [place] [phone] (Wo rk) [address] [phone] Social History Tobacco Use Types Packs/Day Years [...] encounter Results COLONOSCOPY (08/29/2011 1:31 PM CDT) [facility] Method Time Signature COLONOSCOPY [facility] RAD IOLOGY RESULTS Patient Name: Faith sharma [...] Intra-procedure documented in this encounter Care Teams Cold Working Inspector Relationship Specialty Start Date End Date Eladio Nielsen PCP - General 08/14/11 07/23/16 documented as of this encounter
--- OUTSIDE RECORDS SUMMARY | 2022-03-12 14:53 | XMS_ITS | Encounter Summary ---
:1945 Author Organization [place] Address [address] [place] [address] Care Team Providers Name Role Phone Unavailable Primary Care Provider Unavailable Encounter Details Date Type Department Care Team Description 08/13/2007 GI Procedure [facility] Faith Adames E, N one Endoscopy [place] [address] [facility] XXX NO INFO FOUND XXX TO [place] [address] XXX [phone] TO [place] [address] Social History Tobacco Use Types Packs/Day Years [...] Component Value Ref Test Analysis Performed At [facility] Method Time Signature Upper GI [...] ? saturations were monitored continuously. The ? [id number] was introduced through the mouth, and ? [...] RADIOLOGY RESULTS COLONOSCOPY (08/13/2007 7:00 AM CDT) [facility] gist Method Time Signature COLONOSCOPY Endoscopy [...] saturations were monitored continuously. The [id number] ? #[id number] was introduced through the anus and advanced [...]
[2022-03-12 16:26] LABS: PSA Screen* 5.73 ng/mL (0.10-4.00)
== END 2022-03-12 14:29 | disposition home or self-care (01) ==
LOC: NFLDREF 14:29
PROVIDERS: PCP Internal Medicine; Visit Provider Internal Medicine
DX: R97.20 Elevated prostate specific antigen [PSA] (principal)
CPT/HCPCS: 84153

== ENCOUNTER 2022-04-19 13:01 | Outpatient (CLI) | payer MEDICARE, SELFPAY ==
[2022-04-19 15:07] LABS: Ferritin* 39.7 ng/mL (17.9-464.0)
== END 2022-04-19 13:02 | disposition home or self-care (01) ==
LOC: NFLDREF 13:02
PROVIDERS: PCP Internal Medicine; Visit Provider Internal Medicine
DX: Z87.19 Personal history of other diseases of the digestive system (principal)
CPT/HCPCS: 82728

== ENCOUNTER 2022-05-01 14:50 | Emergency (ER) | payer MEDICARE, SELFPAY ==
[2022-05-01] VITALS (9 sets, daily range): BP systolic 110–144; BP diastolic 58–91; PULSE 84–106; RESP 18; TEMP 37.1; O2SAT 95–100; BMI 23.7
--- NOTE | 2022-05-01 14:55 | CRLHL7_ITS ---
For Patients: As a result of the Century Cures Act, medical imaging exams and procedure reports are released immediately into your electronic medical record. You may view this report before your referring provider. If you have questions, please contact your health care provider. INDICATION: Sudden right hearing loss. TECHNIQUE: Multiplanar multisequence noncontrast MR images acquired through the brain. COMPARISON: None. FINDINGS: Prominence of the ventricles and sulci compatible with [id number] diffuse cerebral volume loss. No mass effect or midline shift. Scattered T2 FLAIR intensities in the supratentorial white matter, typical for mild chronic microvascular ischemic changes. No intracranial hemorrhage or pathologic extra-axial fluid collection. No diffusion restriction to suggest acute infarction. The major arterial flow voids of the skullbase are preserved. The globes are symmetric. The paranasal sinuses are well aerated. The mastoid air cells are clear. IMPRESSION: 1. No acute infarction, mass effect, or intracranial hemorrhage. 2. Mild chronic microvascular ischemic changes and [id number] diffuse cerebral volume loss. Dictated by Giles Perdomo MD @ 05/01/2022 5:19:13 PM (Electronically Signed)
--- NOTE | 2022-05-01 15:15 | ED.GENADULT ---
HPI - General Adult General Time Seen by Provider: 15:16 <Katlin Guthrie MD - Last Filed: 05/01/22 16:23> Date Seen: 05/01/22 <Katlin Guthrie MD - Last Filed: 05/01/22 16:23> Chief complaint: Ear/Nose/Throat Problem <Katlin Guthrie MD - Last Filed: 05/01/22 16:23> Stated complaint: Needs MRI of head, sudden loss of hearing R ear <Katlin Guthrie MD - Last Filed: 05/01/22 16:23> Time Seen by Provider: 05/01/22 14:57 <Katlin Guthrie MD - Last Filed: 05/01/22 16:23> Source: patient, RN notes reviewed and other (Dr. Estrada called prior to patient coming) <Katlin Guthrie MD - Last Filed: 05/01/22 16:23> Mode of arrival: ambulatory <Katlin Guthrie MD - Last Filed: 05/01/22 16:23> Limitations: no limitations <Katlin Guthrie MD - Last Filed: 05/01/22 16:23> History of Present Illness HPI narrative: Patient is a 76-year-old male referred to us by Dr. Estrada with right sudden hearing loss. He wants to rule out cerebrovascular disease with an MRI. Patient is on anticoagulants for a DVT and PE. He denies any trauma. He had about a 1/2 hour echo wean ear type symptoms 2 days last week, yesterday it lasted a bit longer, today he is going on about 6-1/2 hours. His audiogram is showing hearing loss. He is hearing echos in the right ear. No pain. He relays ongoing weight loss without trying, fatigue. He was in with a GI bleed that had gastritis. He then had a DVT with pulmonary embolus and was hospitalized at [place], had a repeat EGD to ensure healing of his stomach prior to getting started on anticoagulation. He was initially treated with heparin for the DVT and PE before the EGD was done. Our role here today is for the MRI, did confer with Radiology prior to having him sent down from the [facility], they will be able to do a brain MRI this afternoon. The goal is for the MRI to happen around 415. <Katlin Guthrie MD - Last Filed: 05/01/22 16:23> Related Data Home medications: Home Medications Medication Instructions Recorded Confirmed calcium citrate zinc 1 tab PO BID 01/04/22 05/01/22 cholecalciferol (vitamin D3) 125 120 mcg PO DAILY 01/04/22 05/01/22 mcg (5,000 unit) tablet cyanocobalamin (vitamin B-12) 1,000 mcg PO .3 x weekly 01/04/22 05/01/22 1,000 mcg tablet multivitamin 1 tab PO BID 01/04/22 05/01/22 atorvastatin 20 mg tablet 20 mg PO HS 03/06/22 05/01/22 trazodone 100 mg tablet 100 mg PO HS 03/06/22 05/01/22 Previous Rx's Medication Instructions Recorded losartan 50 mg tablet 50 mg PO DAILY #90 tabs 01/04/22 omeprazole 20 mg tablet,delayed 20 mg PO DAILY #60 tabs 03/06/22 release <Katlin Guthrie MD - Last Filed: 05/01/22 16:23> Allergies/adverse reactions: Allergies Allergy/AdvReac Type Severity Reaction Status Date / Time No Known Allergies Allergy Verified 05/01/22 13:51 <Katlin Guthrie MD - Last Filed: 05/01/22 16:23> Review of Systems Status of ROS: Reports: 6 or more systems reviewed and unremarkable except as noted in History and below <Katlin Guthrie MD - Last Filed: 05/01/22 16:23> [facility] Medical History: Medical History (Updated 05/01/22 @ 16:22 by Katlin Guthrie MD) DVT (deep venous thrombosis) History of nephrolithiasis <Katlin Guthrie MD - Last Filed: 05/01/22 16:23> Surgical History: Surgical History (Updated 03/14/22 @ 00:01 by ) History of incisional hernia repair (2021) History of renal calculi (2020) 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 His and his son Charanjit are healthcare power of [employer] [place] attorney. Code status is full. Quit smoking 32 years ago. Occasional use of alcohol. Highest level of school completed/degree received: Doctoral degree Smoking Status: Never smoker Do you use any of these nicotine containing products: None Second hand tobacco smoke exposure: No How often do you have a drink containing alcohol: monthly or less AUDIT-C Alcohol total score: 1 Non-prescribed substance use: denies use <Katlin Guthrie MD - Last Filed: 05/01/22 16:23> Exam Const: Vital Signs, click to edit/add: Vital Signs - 24 hr 05/01/22 15:02 05/01/22 15:32 05/01/22 15:33 Temperature 98.7 F Pulse Rate 100 101 H Pulse Rate [Pulse Oximeter] 106 H Respiratory Rate 18 Blood Pressure 132/91 H Blood Pressure [Ri ght Upper Arm] 120/74 Pulse Oximetry 98 100 95 Oxygen Delivery Me thod Room Air 05/01/22 16:00 05/01/22 16:01 05/01/22 16:02 Temperature Pulse Rate 93 92 93 Pulse Rate [Pulse Oximeter] Respiratory Rate Blood Pressure 110/72 Blood Pressure [Ri ght Upper Arm] Pulse Oximetry 98 97 97 Oxygen Delivery Me thod 05/01/22 17:14 05/01/22 17:15 05/01/22 17:30 Temperature Pulse Rate 87 84 86 Pulse Rate [Pulse Oximeter] Respiratory Rate Blood Pressure 144/58 H Blood Pressure [Ri ght Upper Arm] Pulse Oximetry 99 99 100 Oxygen Delivery Me thod <Katlin Guthrie MD - Last Filed: 05/01/22 16:23> Vital Signs, click to edit/add: Vital Signs - 24 hr 05/01/22 15:02 05/01/22 15:32 05/01/22 15:33 Temperature 98.7 F Pulse Rate 100 101 H Pulse Rate [Pulse Oximeter] 106 H Respiratory Rate 18 Blood Pressure 132/91 H Blood Pressure [Ri ght Upper Arm] 120/74 Pulse Oximetry 98 100 95 Oxygen Delivery Me thod Room Air 05/01/22 16:00 05/01/22 16:01 05/01/22 16:02 Temperature Pulse Rate 93 92 93 Pulse Rate [Pulse Oximeter] Respiratory Rate Blood Pressure 110/72 Blood Pressure [Ri ght Upper Arm] Pulse Oximetry 98 97 97 Oxygen Delivery Me thod 05/01/22 17:14 05/01/22 17:15 05/01/22 17:30 Temperature Pulse Rate 87 84 86 Pulse Rate [Pulse Oximeter] Respiratory Rate Blood Pressure 144/58 H Blood Pressure [Ri ght Upper Arm] Pulse Oximetry 99 99 100 Oxygen Delivery Me thod <Sera Castellon MD - Last Filed: 05/01/22 18:18> Documenting provider has reviewed patient's vital signs: yes <Katlin Guthrie MD - Last Filed: 05/01/22 16:23> Common normals: no apparent distress, average body habitus, oriented x3, no limitations, healthy appearing, alert and well nourished <Katlin Guthrie MD - Last Filed: 05/01/22 16:23> General appearance: cooperative, comfortable, well kempt and well developed <Katlin Guthrie MD - Last Filed: 05/01/22 16:23> HENMT: Common normals: normocephalic, head/scalp atraumatic, external ears normal, EAC's normal, TM's normal bilaterally, external nose normal and nasal mucous membranes and turbinates normal <Katlin Guthrie MD - Last Filed: 05/01/22 16:23> Head and scalp: normocephalic and atraumatic <Katlin Guthrie MD - Last Filed: 05/01/22 16:23> Face and sinus: normal facial exam <Katlin Guthrie MD - Last Filed: 05/01/22 16:23> Nose: external nose normal and nasal mucous membranes and turbinates normal <Katlin Guthrie MD - Last Filed: 05/01/22 16:23> External ear: external ears normal <Katlin Guthrie MD - Last Filed: 05/01/22 16:23> External auditory canal: EAC's normal <Katlin Guthrie MD - Last Filed: 05/01/22 16:23> Tympanic membrane: TM's normal bilaterally <Katlin Guthrie MD - Last Filed: 05/01/22 16:23> Eye: Common normals: PERRL, EOMs intact bilaterally, conjunctivae normal and no scleral icterus <Katlin Guthrie MD - Last Filed: 05/01/22 16:23> Conjunctiva: conjunctiva(e) normal <Katlin Guthrie MD - Last Filed: 05/01/22 16:23> Pupil: PERRL <Katlin Guthrie MD - Last Filed: 05/01/22 16:23> Neck & C-Spine: Common normals: full ROM, no lymphadenopathy, supple, no meningeal signs, no JVD and thyroid normal <Katlin Guthrie MD - Last Filed: 05/01/22 16:23> Thyroid: thyroid normal <Katlin Guthrie MD - Last Filed: 05/01/22 16:23> Resp: Common normals: normal respiratory effort, no retractions, no use of accessory muscles and clear to auscultation bilaterally <Katlin Guthrie MD - Last Filed: 05/01/22 16:23> Auscultation: clear to auscultation bilaterally <Katlin Guthrie MD - Last Filed: 05/01/22 16:23> Cardio: Common normals: no JVD, regular rate, regular rhythm, S1 normal heart sound, S2 normal heart sound, no gallops, no clicks and no murmurs <Katlin Guthrie MD - Last Filed: 05/01/22 16:23> Rate: regular rate <Katlin Guthrie MD - Last Filed: 05/01/22 16:23> Rhythm: regular rhythm <Katlin Guthrie MD - Last Filed: 05/01/22 16:23> Heart sounds: S1 normal and S2 normal <Katlin Guthrie MD - Last Filed: 05/01/22 16:23> Neuro: Common normals: oriented x3 and gait normal <Katlin Guthrie MD - Last Filed: 05/01/22 16:23> Sensorium/orientation: alert <Katlin Guthrie MD - Last Filed: 05/01/22 16:23> Meningeal signs: no meningeal signs <Katlin Guthrie MD - Last Filed: 05/01/22 16:23> Speech: speech normal <Katlin Guthrie MD - Last Filed: 05/01/22 16:23> Psych: Appearance: well kempt <Katlin Guthrie MD - Last Filed: 05/01/22 16:23> Course Course Hospital Course: Brain MRI is being ordered as requested by Dr. Estrada. The patient understands the timing of the test. If there are no acute abnormalities, Dr. Estrada plans on proceeding with prednisone, we will contact him when we have the MRI report. <Katlin Guthrie MD - Last Filed: 05/01/22 16:23> Reevaluation(s) Reevaluation #1: Patient is stable here. He will be just leaving for his MRI of his brain now. He is aware that he is to wait for the result, may take a while for the radiologist to read the scan once it is done. Dr. Castellon will be assuming care, she will contact Dr. Estrada once we have the MRI report. <Kaltin Guthrie MD - Last Filed: 05/01/22 16:23> Time: 16:20 <Katlin Guthrie MD - Last Filed: 05/01/22 16:23> Reevaluation #2: Patient was signed out to me by Dr. Hopkins to follow-up on his MRI. MRI is read by Radiology as negative for any acute infarction, mass effect or intracranial hemorrhage. He does have some chronic microvascular ischemic changes which are mild, and [id number] diffuse cerebral volume loss. I have discussed these findings with the patient and his family. I also talked with Dr. Olivera. He would recommend discharge at this time. He does not feel that steroids are needed. In fact, patient says that his symptoms have resolved at this time, and Dr. Olivera wonders if symptoms are related to otic migraine. The case, patient is feeling well, can be discharged home and will follow-up by phone with ENT tomorrow. <Sera Castellon MD - Last Filed: 05/01/22 18:18> Time: 17:32 <Sera Castellon MD - Last Filed: 05/01/22 18:18> Vital Signs Vital signs: Initial Vital Signs Temperature 98.7 F 05/01/22 15:02 Temperature Source Temporal Artery Scan 05/01/22 15:02 Pulse Rate 106 H 05/01/22 15:02 Pulse Rhythm 05/01/22 15:02 Pulse Strength 3+ Normal 05/01/22 15:02 Respiratory Rate 18 05/01/22 15:02 Blood Pressure 120/74 05/01/22 15:02 Blood Pressure Mean 89 05/01/22 15:02 Pulse Oximetry 98 05/01/22 15:02 Oxygen Delivery Method 05/01/22 15:02 Vital Signs Temperature 98.7 F 05/01/22 15:02 Pulse Rate 106 H 05/01/22 15:02 Respiratory Rate 18 05/01/22 15:02 Blood Pressure 120/74 05/01/22 15:02 Pulse Oximetry 98 05/01/22 15:02 Oxygen Delivery Method 05/01/22 15:02 Temperature 98.7 F 05/01/22 15:02 Pulse Rate 86 05/01/22 17:30 Respiratory Rate 18 05/01/22 15:02 Blood Pressure 144/58 H 05/01/22 17:15 Pulse Oximetry 100 05/01/22 17:30 Oxygen Delivery Method 05/01/22 15:02 <Katlin Guthrie MD - Last Filed: 05/01/22 16:23> Initial Vital Signs Temperature 98.7 F 05/01/22 15:02 Temperature Source Temporal Artery Scan 05/01/22 15:02 Pulse Rate 106 H 05/01/22 15:02 Pulse Rhythm 05/01/22 15:02 Pulse Strength 3+ Normal 05/01/22 15:02 Respiratory Rate 18 05/01/22 15:02 Blood Pressure 120/74 05/01/22 15:02 Blood Pressure Mean 89 05/01/22 15:02 Pulse Oximetry 98 05/01/22 15:02 Oxygen Delivery Method 05/01/22 15:02 Vital Signs Temperature 98.7 F 05/01/22 15:02 Pulse Rate 106 H 05/01/22 15:02 Respiratory Rate 18 05/01/22 15:02 Blood Pressure 120/74 05/01/22 15:02 Pulse Oximetry 98 05/01/22 15:02 Oxygen Delivery Method 05/01/22 15:02 Temperature 98.7 F 05/01/22 15:02 Pulse Rate 86 05/01/22 17:30 Respiratory Rate 18 05/01/22 15:02 Blood Pressure 144/58 H 05/01/22 17:15 Pulse Oximetry 100 05/01/22 17:30 Oxygen Delivery Method 05/01/22 15:02 <Sera Castellon MD - Last Filed: 05/01/22 18:18> Critical Care Time Critical Care Time Critical Care Time: No <Katlin Guthrie MD - Last Filed: 05/01/22 16:23> Discharge Plan Discharge Clinical Impression: Sudden right hearing loss <Katlin Guthrie MD - Last Filed: 05/01/22 16:23> Patient Disposition: Home, Self-Care <Katlin Guthrie MD - Last Filed: 05/01/22 16:23> Condition: Improved <Katlin Guthrie MD - Last Filed: 05/01/22 16:23> Instructions: Hearing Loss (ED) <Katlin Guthrie MD - Last Filed: 05/01/22 16:23> Additional Instructions: Call Dr. Olivera tomorrow lunchtime to discuss further follow-up. Return to the ER at any time for worsening or new acute symptoms. <Katlin Guthrie MD - Last Filed: 05/01/22 16:23> Prescriptions: No Action multivitamin Tablet 1 tab PO BID cyanocobalamin (vitamin B-12) 1,000 mcg tablet 1,000 mcg PO .3 x weekly Rx Instructions: Mon, Wed, Fri calcium citrate zinc 1 tab PO BID cholecalciferol (vitamin D3) 125 mcg (5,000 unit) tablet 120 mcg PO DAILY losartan 50 mg tablet 50 mg PO DAILY Qty: 90 3RF atorvastatin 20 mg tablet 20 mg PO HS trazodone 100 mg tablet 100 mg PO HS omeprazole 20 mg tablet,delayed release (DR/EC) 20 mg PO DAILY Qty: 60 2RF <Katlin Guthrie MD - Last Filed: 05/01/22 16:23> Follow Up/Referrals: Ai Clarke MD [Primary Care Provider] - <aKtlin Guthrie MD - Last Filed: 05/01/22 16:23> Stand Alone Forms: [facility] Info Instructions <Katlin Guthrie MD - Last Filed: 05/01/22 16:23>
== END 2022-05-01 17:41 | disposition home or self-care (01) ==
PROVIDERS: Emergency Provider Emergency Medicine; PCP Internal Medicine
DX: H91.8X1 Other specified hearing loss, right ear (principal)
CPT/HCPCS: 70551; 99283; 99284

== ENCOUNTER 2022-05-08 08:01 | Outpatient (CLI) | payer MEDICARE, SELFPAY ==
[2022-05-08 12:19] LABS: Albumin* 2.1 g/dL (3.3-5.0); Chloride* 106 mmol/L (96-114); Sodium* 131 mmol/L (135-149)
[2022-05-08 12:20] LABS: Potassium* 4.3 mmol/L (3.6-5.1)
[2022-05-08 12:22] LABS: Alanine Aminotransferase* 21 U/L (4-50); Alkaline Phosphatase* 161 U/L (40-150); Aspartate Amino Transferase* 24 U/L (12-35); Bilirubin Total* 0.5 mg/dL (0.1-1.5); Blood Urea Nitrogen* 18 mg/dL (7-30); Carbon Dioxide* 22 mmol/L (20-32); Creatinine* 1.2 mg/dL (0.5-1.5); Estimated Glomerular Filt Rate 63 ml/min; Glucose* 188 mg/dL (60-115); Total Protein* 4.8 g/dL (6.0-8.3)
[2022-05-08 12:23] LABS: Calcium* 7.9 mg/dL (8.4-10.6)
[2022-05-08 14:48] LABS: Iron* 47 ug/dL (49-181)
[2022-05-08 14:49] LABS: Immature Reticulocyte Fraction 12.9 % (2.3-13.4); Reticulocyte Hemoglobin Equivi 28.3 pg (29.0-35.0); Reticulocyte Percent 2.2 % (0.5-2.0); Reticulocytes Absolute 0.08 # (0.03-0.08)
[2022-05-08 14:58] LABS: Percent Iron Saturation 25 % (20-50); Total Iron Binding Capacity 187 ug/dL (261-462)
[2022-05-08 15:24] LABS: Ferritin* 49.4 ng/mL (17.9-464.0)
[2022-05-08 15:40] LABS: Vitamin B12* > 1000 pg/mL (243-894)
[2022-05-09 21:15] LABS: Folate, Serum >22.3 ng/mL (>=5.9)
[2022-05-10 21:53] LABS: Albumin 2.03 g/dL (3.75-5.01); Alpha 1 Globulin 0.62 g/dL (0.19-0.46); Alpha 2 Globulin 0.58 g/dL (0.48-1.05); Total Protein, Serum 4.7 g/dL (6.3-8.2)
== END 2022-05-08 08:02 | disposition home or self-care (01) ==
PROVIDERS: Internal Medicine; PCP Internal Medicine; Visit Provider Internal Medicine
DX: Z00.00 Encounter for general adult medical examination without abnormal findings (principal); D64.9 Anemia, unspecified; R63.4 Abnormal weight loss; E78.5 Hyperlipidemia, unspecified; I10 Essential (primary) hypertension; E11.9 Type 2 diabetes mellitus without complications; E55.9 Vitamin D deficiency, unspecified
CPT/HCPCS: 80053; 82607; 82728; 82746; 83540; 83550; 84165; 85045

== ENCOUNTER 2022-05-10 10:49 | Outpatient (CLI) | payer MEDICARE, SELFPAY | END 2022-05-10 10:50 | disposition home or self-care (01) | LOC: NFLDREF 10:49 | PROVIDERS: PCP Internal Medicine; Visit Provider Internal Medicine | DX: I10 Essential (primary) hypertension (principal); E78.5 Hyperlipidemia, unspecified; E11.9 Type 2 diabetes mellitus without complications; E66.9 Obesity, unspecified; I82.409 Acute embolism and thrombosis of unspecified deep veins of unspecified lower extremity | CPT/HCPCS: 82784; 83520; 84155; 84165; 86334 ==

== ENCOUNTER 2022-06-04 13:30 | Outpatient (RCR) | payer MEDICARE, SELFPAY ==
--- NOTE | 2022-05-11 15:43 | URNOTE ---
Request received for authorization for Iron Sucrose (Venofer) ([id number]). Prior authorization is not needed per [facility] Injectable Drug Authorization List.
[2022-05-15 13:26] VITALS: BP 119/85; PULSE 79; RESP 16; TEMP 36.1; O2SAT 97
[2022-05-15] MEDS: IRON SUCROSE COMPLEX 200 MG in 0.9 % SODIUM CHLORIDE 100 ml 100 ML 440 MG IVPB (14:07)
[2022-05-15 15:10] VITALS: BP 120/82; PULSE 88; RESP 16; TEMP 36.8; O2SAT 98
[2022-05-17 13:26] VITALS: BP 93/60; PULSE 101; RESP 16; TEMP 36.8; O2SAT 100
[2022-05-17] MEDS: IRON SUCROSE COMPLEX 200 MG in 0.9 % SODIUM CHLORIDE 100 ml 100 ML 440 MG IVPB (13:41)
[2022-05-17 14:32] VITALS: BP 102/69; PULSE 94; RESP 16; TEMP 36.8; O2SAT 99
--- NOTE | 2022-05-21 15:23 | ONC.NURNOTE ---
Pt called this am stating he tested positive for COVID on 05/19/22. Pt states symptoms of a runny nose started on 05/19/22. Pt wondering when he can return to [facility] for his iron infusions. Maintenance Representative contacted Martha Rangel, infection control. Per Martha pt can return to [facility] on 05/30/22. Pt notified and scheduled.
[2022-05-30 13:25] VITALS: BP 119/74; PULSE 97; RESP 16; TEMP 36.3; O2SAT 97
[2022-05-30] MEDS: 0.9 % SODIUM CHLORIDE 250 ml IV (13:37)
[2022-05-30] MEDS: IRON SUCROSE COMPLEX 200 MG in 0.9 % SODIUM CHLORIDE 100 ml 100 ML 440 MG IVPB (13:37)
[2022-06-01 09:33] VITALS: BP 90/66; PULSE 105; RESP 16; TEMP 36.1; O2SAT 99
[2022-06-01] MEDS: 0.9 % SODIUM CHLORIDE 250 ml IV (10:12)
[2022-06-01] MEDS: IRON SUCROSE COMPLEX 200 MG in 0.9 % SODIUM CHLORIDE 100 ml 100 ML 440 MG IVPB (10:12)
[2022-06-01 10:51] VITALS: BP 96/64; PULSE 99
[2022-06-04 13:25] VITALS: BP 120/73; PULSE 75; RESP 16; TEMP 36.8; O2SAT 100
[2022-06-04] MEDS: IRON SUCROSE COMPLEX 200 MG in 0.9 % SODIUM CHLORIDE 100 ml 100 ML 440 MG IVPB (13:44)
== END 2022-09-06 23:59 | disposition home or self-care (01) ==
LOC: CCIC 13:30
PROVIDERS: PCP Internal Medicine; Referring Provider Internal Medicine; Visit Provider Internal Medicine
DX: D50.9 Iron deficiency anemia, unspecified (principal)
CPT/HCPCS: 96365; 96374; J1756; J7050

== ENCOUNTER 2022-06-11 10:17 | Outpatient (CLI) | payer MEDICARE, SELFPAY ==
[2022-06-11 12:38] LABS: NT Pro B Type NatriureticPept* 539 pg/mL
== END 2022-06-11 10:18 | disposition home or self-care (01) ==
LOC: NFLDREF 10:21
PROVIDERS: PCP Internal Medicine; Visit Provider Internal Medicine
DX: R53.1 Weakness (principal)
CPT/HCPCS: 83880

== ENCOUNTER 2022-06-15 13:34 | Outpatient (CLI) | payer MEDICARE, SELFPAY | END 2022-06-15 13:35 | disposition home or self-care (01) | LOC: RAD 13:35 | PROVIDERS: PCP Internal Medicine; Visit Provider Internal Medicine | DX: R53.1 Weakness (principal); I31.39 Other pericardial effusion (noninflammatory) | CPT/HCPCS: 93306 ==

== ENCOUNTER 2022-07-02 11:27 | Outpatient (CLI) | payer MEDICARE, SELFPAY | END 2022-07-02 11:28 | disposition home or self-care (01) | LOC: NFLDREF 07-04 11:49 | PROVIDERS: PCP Internal Medicine; Referring Provider Internal Medicine; Visit Provider Internal Medicine | DX: E11.9 Type 2 diabetes mellitus without complications (principal); D50.9 Iron deficiency anemia, unspecified; R53.83 Other fatigue; R63.4 Abnormal weight loss | CPT/HCPCS: 80053; 82550; 82728; 84439; 84443 ==